=== PATIENT | male | born 1960 | race Caucasian/White ===

== ENCOUNTER 2020-11-30 10:31 | Outpatient (CLI) | payer OTHER, SELFPAY ==
[2020-11-30 11:11] LABS: Hematocrit 42.8 % (42.0-52.0); Hemoglobin 14.5 g/dL (14.0-18.0); Immature Platelet Fraction Pct 3.2 % (0.9-11.2); Mean Corpuscular HGB Conc 33.9 g/dl (32-36); Mean Corpuscular Hemoglobin 32.8 pg (26-34); Mean Corpuscular Volume 96.8 fl (80-100); Platelet Count Result 72 k/mm3 (150-375); Red Blood Count 4.42 M/mm3 (4.6-6.20); Red Cell Distribution Width 13.7 % (11.5-14.5); White Blood Count 6.9 K/mm3 (4.5-10.0)
[2020-11-30 11:27] LABS: Alanine Aminotransferase 43 U/L (4-50); Albumin Level 3.6 g/dL (3.5-5.1); Alkaline Phosphatase 135 U/L (38-126); Anion Gap 3 mmol/L (8-16); Aspartate Amino Transferase 64 U/L (17-59); Blood Urea Nitrogen 14 mg/dL (9-20); Carbon Dioxide 26 mmol/L (22-30); Chloride 106 mmol/L (98-107); Cholesterol 166 mg/dL (0-200); Estimated Glomerular Filt Rate > 60; Glucose 143 mg/dL (75-110); HDL Direct 46 mg/dL; Potassium 4.2 mmol/L (3.4-5.0); Sodium 135 mmol/L (137-145); Triglycerides 94 mg/dL (<150)
[2020-11-30 11:39] LABS: LDL Cholesterol Direct 78 mg/dL
== END 2020-11-30 10:32 | disposition home or self-care (01) ==
PROVIDERS: PCP Family Medicine; Visit Provider Family Medicine
DX: E11.9 Type 2 diabetes mellitus without complications (principal)
CPT/HCPCS: 36415; 80053; 80061; 84443; 85027; 85055

== ENCOUNTER 2023-01-25 12:12 | Observation (INO) | payer OTHER, SELFPAY ==
--- NOTE | ~2023-01-25 | XR_ITS ---
EXAMINATION: XR foot LT min 3V DATE: 01/25/2023 12:42 INDICATION: Diabetic patient stepped on a nail with injury at the plantar aspect of the great toe TECHNIQUE: Dorsoplantar, two oblique and lateral views of the left foot were obtained. COMPARISON: None. FINDINGS: Soft tissue swelling and linear tract of lucent gas in the soft tissues plantar to the first metatars ophalangeal joint consistent with a deep deep puncture injury reportedly secondary to stepping on a n ail. No radiopaque foreign bodies. Bone alignment is normal. No fracture. No cortical erosion, osteol ysis or periosteal reaction to suggest osteomyelitis. Mild polyarticular osteoarthritis at the left a nkle and multiple joints throughout the left foot. Moderate-sized plantar calcaneal spurs and additio nal enthesophytes at the dorsal aspect of the navicula and head of the talus. IMPRESSION: 1. Lucent tract of gas in the soft tissues plantar to the first metatarsophalangeal joint consistent with reported history of nail injury. No associated radiopaque foreign bodies or acute osseous abnorm ality. 2. Mild degenerative skeletal changes at the left foot and ankle. Reviewed, dictated and finalized at location A. IMPRESSION: 1. Lucent tract of gas in the soft tissues plantar to the first metatarsophalan geal joint consistent with reported history of nail injury. No associated radio paque foreign bodies or acute osseous abnormality. 2. Mild degenerative skeletal changes at the left foot and ankle.
--- NOTE | ~2023-01-25 | US_ITS ---
EXAMINATION: US venous doppler [facility] DATE: 01/25/2023 15:00 INDICATION: edema, erythema . TECHNIQUE: Grayscale images without and with compression and Doppler images of the left lower extremi ty veins were obtained. COMPARISON: None FINDINGS: The left common femoral vein, profunda femoral vein, femoral vein, popliteal vein, peroneal vein, pos terior tibial veins, gastrocnemius vein, and greater saphenous vein are patent. IMPRESSION: 1. Patent left lower extremity veins. No evidence of deep venous thrombosis. Reviewed, dictated and finalized at location K.
--- NOTE | ~2023-01-25 | CT_ITS ---
EXAMINATION: CT abdomen pelvis wo con DATE: 01/25/2023 16:09 INDICATION: Low back pain, flank pain, hematuria TECHNIQUE: Computed tomography (CT) of the abdomen and pelvis was performed without intravenous contr ast. Automated exposure control and iterative reconstruction technique were employed. Exam dose: 163 1.91 mGy-cm total exam DLP. COMPARISON: 12/08/2017 limited abdominal ultrasound examination FINDINGS: There is peripheral thickening of the intralobular septae and mild honeycombing, suggesting possible usual interstitial pneumonia interstitial fibrosis. No pulmonary consolidation is noted. He art size is within normal range. No pericardial or pleural effusion. Small sliding hiatal hernia. Very prominent surface nodularity of the relatively diminutive liver consistent with cirrhosis. There is splenomegaly. There are stones in the dependent aspect of the gallbladder. No gallbladder wall thickening or perich olecystic fluid or fat stranding. No bile duct or pancreatic duct dilatation. Normal morphology of the adrenal glands. No renal mass lesion or urinary tract calculus or hydroureteronephrosis. The urinary bladder is unrem arkable. There is prostatomegaly and prostate calcification. There is atherosclerotic calcification but normal caliber of the abdominal aorta and iliac arteries. Normal appendix. No bowel obstruction, bowel wall thickening, pneumatosis or intraperitoneal free air . Small fat-containing left inguinal hernia. Small fat-containing umbilical hernia. Degenerative changes of the lower thoracic and lumbar spine. No suspicious osteolytic or osteoblastic lesions are noted. IMPRESSION: Cirrhosis, splenomegaly Small sliding hiatal hernia Cholelithiasis No urinary tract calculus or hydroureteronephrosis Normal appendix Small fat-containing left inguinal hernia Small fat-containing umbilical hernia Reviewed, dictated and finalized at Location A. Reviewed, dictated and finalized at location B.
--- NOTE | ~2023-01-25 | NM_ITS ---
EXAMINATION: NM bone scan whole body DATE: 01/27/2023 14:05 INDICATION: Sclerotic lesion at the iliac side of the left sacroiliac joint. TECHNIQUE: 21 mCi Tc-99m HDP was administered intravenously. Delayed whole-body scintigrams were obt ained. COMPARISON: CT abdomen and pelvis dated 01/26/2023 and left foot radiographs dated 01/25/2023 FINDINGS: Likely degenerative joint centered uptake most prominent at the bilateral hands and mid feet and to l julieta degree at the bilateral sternoclavicular and acromioclavicular joints. Additional mild enthesop athic uptake at the left heel with corresponding left plantar calcaneal spur. Subtle small focus of l ikely enthesopathic uptake at the right patellar quadriceps insertion. No other suspicious bone lesio ns. Specifically no asymmetric uptake in the region of the sacroiliac joints to correspond to the lyt ic and sclerotic lesion on the prior CT most likely related to subarticular cystic change related to osteoarthritis. IMPRESSION: 1. Scattered likely degenerative joint centered uptake with typical distribution. No other lesions gannon spicious for osseous metastatic disease. Reviewed, dictated and finalized at location A. IMPRESSION: 1. Scattered likely degenerative joint centered uptake with typical distributio n. No other lesions suspicious for osseous metastatic disease.
--- NOTE | ~2023-01-25 | CT_ITS ---
EXAMINATION: CT abdomen pelvis w con DATE: 01/26/2023 15:45 INDICATION: Hematuria EXAMINATION: CT abdomen pelvis w con TECHNIQUE: Computed tomography (CT) of the abdomen and pelvis was performed without intravenous contr ast. CT of the abdomen and pelvis was then performed with a total of 130 mL Omnipaque-350 intravenous contrast using a double-bolus technique for simultaneous opacification of the renal parenchyma and r enal collecting system. Automated exposure control and iterative reconstruction technique were employ ed. Dose-length product was 1655.32 mGy-cm. COMPARISON: 01/25/2023 FINDINGS: Unchanged pattern of peripheral irregular septal line thickening at the bilateral lung bases most lik eduarda related to chronic interstitial lung disease of either usual interstitial pneumonia (UIP) or nons pecific interstitial pneumonia (NSIP) patterns. Heart size is normal. Aortic valve calcification. No pericardial or pleural effusion. Nodular cirrhotic liver with dilation of the main portal vein and sp lenomegaly measuring 27.2 cm maximal length consistent with portal venous hypertension. Calcified gal lstones at the dependent neck of the otherwise normal gallbladder with no wall thickening or perichol ecystic stranding to suggest acute cholecystitis. Pancreas and bilateral adrenal glands are normal. Symmetric bilateral renal parenchymal enhancement with no concerning solid renal mass lesions. Excret ed contrast is seen within the bilateral renal collecting systems, ureters and bladder. The proximal left ureter and the mid to distal right ureter. Decompressed likely due to peristalsis with no discer nible intraluminal contrast. No hydronephrosis or urothelial irregularities along the contrast opacif ied portions of the collecting systems and ureters. Prostatic calcifications. Bowels including the ap pendix are normal. No free intraperitoneal gas or fluid. Small fat-containing umbilical and left ingu inal hernias. Mild pelvic lymphadenopathy with several lymph nodes measuring up to 1.2 cm in maximal short axis diameter along the bilateral external and common iliac chains there are several additional smaller but asymmetrically enlarged lymph nodes in the right pelvic retroperitoneal fat situated bet ween the right psoas and iliacus muscles. Moderate thoracolumbar spondylosis. Indeterminate 2.5 x 1.6 cm mixed lytic and sclerotic lesion along the iliac side of the inferior right sacroiliac joint. IMPRESSION: 1. Normal kidneys with no strictures or urothelial irregularities identified along the contrast opaci fied portions of the normal bilateral ureters. 2. Nonspecific mild pelvic retroperitoneal lymphadenopathy which could be reactive, metastatic or due to lymphoma. 3. Indeterminate 2.5 x 1.6 cm mixed lytic and sclerotic lesion along the iliac side of the right sacr oiliac joint. Would consider further evaluation with either bone scan or PET/CT to also assess the pe lvic retroperitoneal lymphadenopathy. Given the distribution of the lymphadenopathy in the bone lesio n would also correlate with PSA level. 4. Cirrhosis with splenomegaly consistent with secondary portal venous hypertension. Reviewed, dictated and finalized at location A. IMPRESSION: 1. Normal kidneys with no strictures or urothelial irregularities identified al claudine the contrast opacified portions of the normal bilateral ureters. 2. Nonspecific mild pelvic retroperitoneal lymphadenopathy which could be react treva, metastatic or due to lymphoma. 3. Indeterminate 2.5 x 1.6 cm mixed lytic and sclerotic lesion along the iliac side of the right sacroiliac joint. Would consider further evaluation with ei er bone scan or PET/CT to also assess the pelvic retroperitoneal lymphadenopath y. Given the distribution of the lymphad
[2023-01-25 12:12] VITALS: BP 173/109; PULSE 77; RESP 18; TEMP 36.4; O2SAT 98
[2023-01-25 14:02] LABS: Basophils Percent Auto 0.5 % (0.2-1.2); Eosinophils Absolute Auto 0.2 K/mm3 (0-0.3); Eosinophils Percent Auto 2.2 % (0-4.4); Hematocrit 35.6 % (42.0-52.0); Hemoglobin 12.2 g/dL (14.0-18.0); Immature Granulocyte Absolute 0.03 K/mm3 (0.00-0.031); Immature Granulocyte Percent A 0.4 % (0-0.5); Immature Platelet Fraction Pct 5.7 % (0.9-11.2); Lymphocytes Absolute Auto 1.26 K/mm3 (0.9-3.2); Lymphocytes Percent Auto 15.3 % (18.3-44.2); Mean Corpuscular HGB Conc 34.3 g/dl (32-36); Mean Corpuscular Hemoglobin 33.3 pg (26-34); Mean Corpuscular Volume 97.3 fl (80-100); Mean Platelet Volume 11.5 fl (7.4-10.4); Monocytes Absolute Auto 1.1 K/mm3 (0.1-0.6); Monocytes Percent Auto 13.1 % (2.6-8.5); Neutrophils Absolute Auto 5.7 K/mm3 (1.3-6.7); Neutrophils Percent Auto 68.5 % (45.5-73.1); Platelet Count Result 58 k/mm3 (150-375); Red Blood Count 3.66 M/mm3 (4.6-6.20); Red Cell Distribution Width 13.5 % (11.5-14.5); White Blood Count 8.3 K/mm3 (4.5-10.0)
[2023-01-25 14:16] LABS: Anion Gap 3 mmol/L (8-16); Blood Urea Nitrogen 22 mg/dL (9-20); CRP 5.8 mg/dL (<1.0); Calcium 8.7 mg/dL (8.4-10.2); Carbon Dioxide 25 mmol/L (22-30); Chloride 106 mmol/L (98-107); Estimated CRCL calculation 88 ml/min; Estimated Glomerular Filt Rate > 60; Glucose 230 mg/dL (65-110); Potassium 4.3 mmol/L (3.4-5.0); Sodium 134 mmol/L (137-145)
[2023-01-25 14:30] LABS: Atypical Lymphocytes Present; Platelet Estimate Decreased (Adequate); Schistocytes None Seen (NORMAL)
[2023-01-25 14:33] LABS: Erythrocyte Sedimentation Rate 82 mm/hr (0-20)
--- NOTE | 2023-01-25 14:33 | ED.LOWEXIN ---
HPI - Extremity Injury (Lower) General Chief Complaint: Extremity Injury, Lower <Kitty Redd PA-C - Last Filed: 01/25/23 18:25> Stated Complaint: LOW BACK PAIN <Kitty Redd PA-C - Last Filed: 01/25/23 18:25> Time Seen by Provider: 01/25/23 13:20 <Kitty Redd PA-C - Last Filed: 01/25/23 18:25> Source: patient <TRAV Tilley Last Filed: 01/25/23 18:25> Mode of arrival: ambulatory <Kitty Redd PA-C - Last Filed: 01/25/23 18:25> Limitations: no limitations <Kitty Redd PA-C - Last Filed: 01/25/23 18:25> History of Present Illness HPI Narrative: This is a 62 year old male that presents to the ER for left leg swelling and redness ongoing since last night. Reports he stepped on a nail with the left foot 3 weeks ago. Reports he was seen after this and updated on his tetanus vaccine. Reports yesterday he noted redness and swelling to the left leg. Also reports over the last several days he has noted urinary frequency and hematuria. Does report some low back pain intermittently. Denies fever, abdominal pain, flank pain, or vomiting. <Kitty Redd PA-C - Last Filed: 01/25/23 18:25> Related Data Allergies/Adverse Reactions: Allergies Allergy/AdvReac Type Severity Reaction Status Date / Time oxycodone Allergy Unknown Nausea Verified 11/07/19 05:47 <Kitty Redd PA-C - Last Filed: 01/25/23 18:25> Review of Systems Review of Systems: CONSTITUTIONAL: Denies fever GASTROINTESTINAL: Denies abdominal pain, nausea, vomiting GENITOURINARY: Reports hematuria. Denies dysuria SKIN: Reports redness and swelling MUSCULOSKELETAL: Reports back pain, and myalgia. <TRAV Tilley Last Filed: 01/25/23 18:25> All systems reviewed & are unremarkable except as noted in HPI and below <TRAV Tilley Last Filed: 01/25/23 18:25> PMFSH Past Medical History Medical History: Medical History (Updated 01/25/23 @ 18:16 by Kitty Redd PA-C) History of diabetes mellitus <Kitty Redd PA-C - Last Filed: 01/25/23 18:25> Social History Social History: Social History (Updated 01/25/23 @ 14:40 by Kitty Redd PA-C) Smoking status: Former smoker <Kitty Redd PA-C - Last Filed: 01/25/23 18:25> Exam Narrative: GENERAL: Well-appearing, well-nourished, and in no acute distress. HEAD: Normocephalic, atraumatic. EYES: EOMI. CHEST: Clear to auscultation. No respiratory distress. No wheezes rales or rhonchi HEART: Regular rate and rhythm. No murmur heard. Normal peripheral pulses. ABDOMEN: Soft, nontender, nondistended, normal active bowel sounds. No CVA tenderness EXTREMITIES: Normal range of motion. Redness and swelling noted to the left lower leg. No crepitus. Normal DP pulse. Normal sensation. Left foot plantar surface with 3cm ci SKIN: Warm, dry, no rash. NEURO: No focal deficits. Alert and oriented x3. PSYCH: Normal mood and affect <Kitty Redd PA-C - Last Filed: 01/25/23 18:25> Course Course Emergency Course: Patient was updated on workup and need for admission <Kitty Redd PA-C - Last Filed: 01/25/23 18:25> CENTRAL STERILIZATION TECHNICIAN/PA Physician Supervision This visit was performed by both a physician and an APC. I performed all aspects of the MDM as documented. Admit to hospitalist service for diabetic cellulitis. <Rodrigo Sanchez MD - Last Filed: 01/25/23 19:18> Consultations Consultation #1: Spoke with hospitalist about patient and workup who accepts admission <Kitty Redd PA-C - Last Filed: 01/25/23 18:25> Date: 01/25/23 <Kitty Redd PA-C - Last Filed: 01/25/23 18:25> Vital Signs Vital signs: Vital Signs Temperature 97.6 F 01/25/23 12:12 Pulse Rate 77 01/25/23 12:12 Respiratory Rate 18 01/25/23 12:12 Blood Pressure 173/109 H 01/25/23 12:12 Pulse Oximetry 98 01/25/23 12:12 Oxygen Delivery Room Air 01/25/23 12:12 Temperature 97.6 F 01/25/23 12:12 Puls
[2023-01-25 15:52] LABS: Appearance Urine Clear (Clear); Bilirubin Urine Negative (Negative); Blood Urine 3+ (Negative); Color Urine Yellow (Yellow); Glucose Urine UA Trace mg/dL (Negative); Ketones Urine Negative (Negative); Leukocyte Esterase Ur Negative LEU/UL (Negative); Nitrate Urine Negative (Negative); Protein Urine 2+ mg/dL (Negative); Specific Grav Ur 1.015 (1.001-1.035); Urobilinogen Urine 0.2 mg/dL (<2.0)
[2023-01-25 15:56] LABS: Add Urine Microscopic? YES
[2023-01-25 15:57] LABS: RBC Urine >100 /hpf (0-2); WBC Urine 0-3 /hpf (0-3)
[2023-01-25 15:58] LABS: Squamous Epithelial Cell Urine Few /hpf (Few)
[2023-01-25 16:00] LABS: Bacteria Urine Rare /hpf
[2023-01-25] MEDS: CEFEPIME 2 GM/NS 50 ML 2 GM/50 ML BAG IVPB (17:50)
[2023-01-25] MEDS: metroNIDAZOLE 500 MG/ISO 100ML 500 MG/100 ML BAG 100 MG IVPB (18:09)
[2023-01-25 18:15] LABS: Glucose Point of Care 196 mg/dl (65-105)
[2023-01-25] MEDS: INSULIN HUMAN REGULAR (*BKC) 100 UNITS/ML 15 UNITS SUB-Q (18:35)
[2023-01-25 18:38] VITALS: BP 154/70
[2023-01-25 19:55] VITALS: BP 121/61; PULSE 81; RESP 16; O2SAT 98
--- NOTE | 2023-01-25 20:14 | PC.NURSE ---
Patient arrived on 3 Med-Surg at 20:05 on 01/25/2023
[2023-01-25 20:40] VITALS: BMI 45.1
--- NOTE | 2023-01-25 21:18 | PM.IMHP ---
H&P: HPI History of Present Illness Date/Time: 01/25/23 21:18 Chief Complaint: Lower extremity infection Narrative: This is a 62-year-old diabetic male patient who came to the emergency room with complaints of left leg swelling and redness it just started last night. The patient stated that he stepped on a nail with his left foot 3 weeks ago. The patient stated that he did receive a tetanus shot 2 days after he stepped on the nail. Patient still has a callused area to the left palmar surface and no redness on the foot however the redness is on the left lower leg just below the knee. The patient has also been having urinary frequency and hematuria. He has no complaints of abdominal pain or flank plain. No fever chills. White count is normal. H&H is 12.2 and 35.6. Platelet count is 58 which is normal for the patient. Sodium slightly low at 134. Blood sugars 230, 196 and 280. CRP 5.8. Urine has 2+ protein trace glucose 3+ blood. Urine rbc's greater than 100. At abdominal pelvis CT was read as a following?Cirrhosis, splenomegaly Small sliding hiatal hernia Cholelithiasis No urinary tract calculus or hydroureteronephrosis Normal appendix Small fat-containing left inguinal hernia Small fat-containing umbilical hernia Venous Doppler of left leg pain left lower extremity veins no evidence of deep vein thrombosis. Foot x-ray was read as the following. Lucent tract of gas in the soft tissues plantar to the first metatarsophalangeal joint consistent with reported history of nail injury. No associated radiopaque foreign bodies or acute osseous abnormality. 2. Mild degenerative skeletal changes at the left foot and ankle. The patient was given vancomycin and cefepime Flagyl and insulin in the emergency room. The patient is being admitted to observation status on the date of service of 01/25/2023. Review of Systems Review of Systems: All systems reviewed & are unremarkable except as noted in HPI and below Constitutional: Constitutional: Reports as per HPI and Reports no additional constitutional complaints Eyes: Eyes: Reports as per HPI and Reports no additional eye complaints ENT: Reports system reviewed and no additional complaints, except as documented and Reports Normal hearing present Cardiovascular: Cardiovascular: Reports no additional cardiovascular complaints Respiratory: Respiratory: Reports no additional respiratory complaints and Reports no additional respiratory complaints Gastrointestinal: Gastrointestinal: Reports as per HPI and Reports no additional gastrointestinal complaints Musculoskeletal: Musculoskeletal: Reports no additional musculoskeletal complaints Integumentary/Breasts: Skin/Breast: Reports system reviewed and no additional complaints, except as docu and Reports as per HPI Neurologic: Reports system reviewed and no additional complaints, except as documented, Reports as per HPI and Reports Normal hearing present Psychiatric: Psychiatric: Reports no additional psychiatric complaints and Reports as per HPI Endocrine: Endocrine: Reports no additional endocrine complaints Hematologic/Lymphatic: Hematologic/Lymphatic: Reports no additional hematologic/lymphatic complaints Allergic/Immunologic: Allergic/Immunologic: Reports no additional allergic/immunologic complaints [facility] Past Medical History Medical History (Updated 01/26/23 @ 01:07 by Basilia Benites NP) DM2 (diabetes mellitus, type 2) History of diabetes mellitus Surgical History Surgical History (Updated 01/26/23 @ 00:58 by Basilia Benites NP) H/O cataract extraction S/P ORIF (open reduction internal fixation) fracture Left ankle with jesus manuel placement with subsequent removal later Family History Family History (Updated 01/26/23 @ 00:58 by Basilia Benites NP) Mother Cancer Social History Social History (Updated 01/26/23 @ 00:59 by Basilia Benites NP) Social History: 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 He has 3 children and is
[2023-01-25 21:23] LABS: Glucose Point of Care 280 mg/dl (65-105)
[2023-01-25] MEDS: INSULIN ASPART (*BKC) 100 UNITS/ML 10 UNITS SUB-Q (21:52)
[2023-01-25 22:00] VITALS: BP 134/63; PULSE 72; RESP 14; TEMP 36.4; O2SAT 98
[2023-01-26] MEDS: metroNIDAZOLE 500 MG/ISO 100ML 500 MG/100 ML BAG 100 MG IVPB ×3 (03:29→17:54)
[2023-01-26] MEDS: INSULIN GLARGINE (*BKC) 100 UNITS/ML 28 UNITS SUB-Q ×2 (03:29→20:07)
[2023-01-26] MEDS: CEFEPIME 2 GM/NS 50 ML 2 GM/50 ML BAG IVPB ×2 (05:25→17:22)
[2023-01-26 06:00] VITALS: BP 118/60; PULSE 76; RESP 16; TEMP 36.3; O2SAT 97
[2023-01-26 06:42] LABS: Basophils Percent Auto 0.6 % (0.2-1.2); Eosinophils Absolute Auto 0.3 K/mm3 (0-0.3); Hematocrit 30.6 % (42.0-52.0); Hemoglobin 10.6 g/dL (14.0-18.0); Immature Granulocyte Absolute 0.04 K/mm3 (0.00-0.031); Immature Granulocyte Percent A 0.6 % (0-0.5); Immature Platelet Fraction Pct 4.8 % (0.9-11.2); Lymphocytes Absolute Auto 1.33 K/mm3 (0.9-3.2); Lymphocytes Percent Auto 19.6 % (18.3-44.2); Mean Corpuscular HGB Conc 34.6 g/dl (32-36); Mean Corpuscular Hemoglobin 32.8 pg (26-34); Mean Corpuscular Volume 94.7 fl (80-100); Monocytes Absolute Auto 0.9 K/mm3 (0.1-0.6); Monocytes Percent Auto 13.6 % (2.6-8.5); Neutrophils Absolute Auto 4.2 K/mm3 (1.3-6.7); Neutrophils Percent Auto 61.6 % (45.5-73.1); Platelet Count Result 54 k/mm3 (150-375); Red Blood Count 3.23 M/mm3 (4.6-6.20); Red Cell Distribution Width 13.3 % (11.5-14.5); White Blood Count 6.8 K/mm3 (4.5-10.0)
[2023-01-26 06:57] LABS: Alanine Aminotransferase 23 U/L (6-50); Albumin Level 3.2 g/dL (3.5-5.1); Alkaline Phosphatase 87 U/L (38-126); Anion Gap 0 mmol/L (8-16); Aspartate Amino Transferase 35 U/L (17-59); Bilirubin,Total 1.7 mg/dL (0.2-1.3); Blood Urea Nitrogen 20 mg/dL (9-20); Calcium 8.6 mg/dL (8.4-10.2); Carbon Dioxide 28 mmol/L (22-30); Chloride 107 mmol/L (98-107); Estimated CRCL calculation 90 ml/min; Estimated Glomerular Filt Rate > 60; Glucose 156 mg/dL (65-110); Potassium 4.1 mmol/L (3.4-5.0); Sodium 135 mmol/L (137-145)
[2023-01-26 07:33] LABS: Glucose Point of Care 148 mg/dl (65-105)
[2023-01-26] MEDS: SILVERGEL (ELTA) 45 ML 1 APPLIC TOPICAL (09:01)
[2023-01-26 10:52] LABS: Hemoglobin A1C 8.5 % (<5.7)
[2023-01-26 11:47] LABS: Glucose Point of Care 308 mg/dl (65-105)
[2023-01-26] MEDS: INSULIN ASPART (*BKC) 100 UNITS/ML SUB-Q ×2 (12:29→17:27)
--- NOTE | 2023-01-26 13:18 | WPDURCON ---
Assessment and Plan Assessment and plan (1) Hematuria: Qualifiers: Hematuria type: gross Qualified Code(s): R31.0 - Gross hematuria Code(s): R31.9 - Hematuria, unspecified Status: Acute Assessment and Plan: Repeat CT abdomen and pelvis with contrast to rule out malignancy. Proceed with office cystoscopy after discharge. No need for surgical intervention at this time. Cause is unclear at this time, we did discuss BPH as a possible cause and UTI, although no culture was sent and we are unable to send one at this time d/t being on antibiotics. (2) BPH (benign prostatic hyperplasia): Code(s): N40.0 - Benign prostatic hyperplasia without lower urinary tract symptoms Status: Acute Assessment and Plan: Start Flomax. (3) Prostate cancer screening: Code(s): Z12.5 - Encounter for screening for malignant neoplasm of prostate Status: Acute Assessment and Plan: Obtain PSA for screening d/t no previous PSA and new onset of hematuria that is unexplained. Urology Consult Note HPI Date Seen: 01/26/23 Time Seen: 12:00 Requesting Physician: Saumya Harris MD Primary Care Provider: Flo Russell, Consult Narrative Reason for consult: Gross Hematuria/BPH symptoms Narrative: Blake Smith is a 62 year old male who is being treated for an infection in the LLE secondary to stepping on a nail 3 weeks ago. He was treated initially with a Tetanus shot, but has since developed acute onset LLE edema, redness and pain. He is being treated with Vancomycin and Cefepime. Simultaneously, he notes that he has developed acute onset of gross hematuria x2 days, which is accompanied with a history of frequency, urgency, incontinence and nocturia x 5 at night. He denies straining, hesitancy or feeling of incomplete emptying. He has never seen a urologist before. He had a CT to rule out stones which was done without contrast only and was normal. WBC is 6.8, creatinine 1.20, UA shows hematuria but is not otherwise suspicious of infection, no urine culture was sent. He was seen in the ER yesterday and admitted for further treatment. A DVT was ruled out in his leg and he is not on anticoagulants currently. He has never taken any medications for OAB or BPH, nor does he have a family history of prostate cancer. He has never had a PSA/ORTIZ. Review of Systems Cardiovascular: Cardiovascular: Denies chest pain Respiratory: Respiratory: Reports no additional respiratory complaints Gastrointestinal: Gastrointestinal: Denies abdominal pain, Denies nausea and Denies vomiting Genitourinary: Genitourinary: Reports hematuria, Denies dysuria, Denies flank pain, Reports urinary frequency, Denies urinary hesitancy, Reports urinary incontinence and Reports urinary urgency Musculoskeletal: Comments: LLE pain PMFSH Past Medical History Medical History DM2 (diabetes mellitus, type 2) History of diabetes mellitus Surgical History Surgical History H/O cataract extraction S/P ORIF (open reduction internal fixation) fracture Left ankle with jesus manuel placement with subsequent removal later Family History Family History Mother Cancer Social History Social History Social History: 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 He has 3 children and is and lives with his . Code status full code Smoking status: Never smoker Alcohol intake: former Drinks per week: 2 Substance use: never Lack of Transportation: No Lack of Food: Never True Current Housing: I Have Housing Concerned About Future Housing: No Difficulty Paying Gas/Electric Bills: YES Difficulty Paying for Meds: No Currently Unemployed: No Education: High School Diploma/GED Difficu
--- NOTE | 2023-01-26 13:35 | PM.IMPN ---
Progress Note: A&P Assessment and Plan (1) Cellulitis: Qualifiers: Laterality: left Site of cellulitis: extremity Site of cellulitis of extremity: lower extremity Qualified Code(s): L03.116 - Cellulitis of left lower limb Code(s): L03.90 - Cellulitis, unspecified Status: Acute Assessment and Plan: Continue with cefepime, Flagyl, and vancomycin as per antibiotic stewardship for cellulitis in a diabetic patient Continue with analgesia Blood cultures pending Tailor antibiotics to culture and sensitivities. 01/26/2023 interval history: 62-year-old male morbidly obese with history of uncontrolled diabetes presents with left lower extremity cellulitis, patient stepped on a jean-paul nails and developed the infection patient is being treated with Cefepime and vanconycin, will follow up on blood culture, patient also having hematuria will consult urologist further recommendation, continue to monitor (2) DM2 (diabetes mellitus, type 2): Code(s): E11.9 - Type 2 diabetes mellitus without complications Status: Acute Assessment and Plan: Continue with long-acting insulin Accu-Cheks AC and HS with sliding scale insulin and hypoglycemic protocol Check A1c (3) Hematuria: Qualifiers: Hematuria type: gross Qualified Code(s): R31.0 - Gross hematuria Code(s): R31.9 - Hematuria, unspecified Status: Acute Assessment and Plan: CT of the abdomen did not offer up any kidney stones. May consider outpatient urology consult (4) Thrombocytopenia: Code(s): D69.6 - Thrombocytopenia, unspecified Status: Acute Assessment and Plan: No anticoagulation was given at this time as patient has thrombocytopenia which appears to be chronic. The patient's platelets are 58 previously there was 72. This was noted to be low since 2019. According to the CT scan the patient has cirrhosis of the liver. Subjective Date/time seen: 01/26/23 13:35 Lower extremity infection HPI-Narrative: This is a 62-year-old diabetic male patient who came to the emergency room with complaints of left leg swelling and redness it just started last night.? The patient stated that he stepped on a nail with his left foot 3 weeks ago.? The patient stated that he did receive a tetanus shot 2 days after he stepped on the nail.? Patient still has a callused area to the left palmar surface and no redness on the foot however the redness is on the left lower leg just below the knee.? The patient has also been having urinary frequency and hematuria.? He has no complaints of abdominal pain or flank plain.? No fever chills.? White count is normal.? H&H is 12.2 and 35.6.? Platelet count is 58 which is normal for the patient.? Sodium slightly low at 134.? Blood sugars 230, 196 and 280.? CRP 5.8.? Urine has 2+ protein trace glucose 3+ blood.? Urine rbc's greater than 100.? At abdominal pelvis CT was read as a following?Cirrhosis, splenomegaly 01/26/2023 interval history: 62-year-old male morbidly obese with history of uncontrolled diabetes presents with left lower extremity cellulitis, patient stepped on a jean-paul nails and developed the infection patient is being treated with Cefepime and vanconycin, will follow up on blood culture, patient also having hematuria will consult urologist further recommendation, continue to monitor Review of Systems Review of Systems: All systems reviewed & are unremarkable except as noted in HPI and below Exam Narrative: Morbidly obese Patient is comfortable, NAD HEENT: eyes are clear and none icteric LUNGS: Normal respiratory effort ABD: BS+, Soft and nontender Lower extremities: no edema SKIN: nonjaundiced, left lower extremity posterior expect erythematosus no induration or discharge, Neuro: grossly intact. Objective Data Vital Signs Vital Signs: Vital Signs - 24 hr 01/25/23 18:38 01/25/23 19:55 01/25/23 22:00 Temperature 97.5 F L Pulse Rate 81 72 Respiratory Rate
[2023-01-26 14:00] VITALS: BP 130/67; PULSE 75; RESP 18; TEMP 36.6; O2SAT 98
[2023-01-26 14:08] LABS: Prostate Specific Antigen 0.2 ng/mL (< OR = 4.0)
[2023-01-26 16:46] LABS: Glucose Point of Care 261 mg/dl (65-105)
[2023-01-26 21:26] LABS: Glucose Point of Care 158 mg/dl (65-105)
[2023-01-26 22:00] VITALS: BP 136/58; PULSE 76; RESP 18; TEMP 36.4; O2SAT 96
[2023-01-27] MEDS: metroNIDAZOLE 500 MG/ISO 100ML 500 MG/100 ML BAG 100 MG IVPB ×3 (01:00→17:56)
[2023-01-27] MEDS: CEFEPIME 2 GM/NS 50 ML 2 GM/50 ML BAG IVPB ×2 (05:16→17:23)
[2023-01-27 06:00] VITALS: BP 131/57; PULSE 71; RESP 18; TEMP 36.4; O2SAT 95
[2023-01-27 07:24] LABS: Estimated CRCL calculation 90 ml/min; Estimated Glomerular Filt Rate > 60
[2023-01-27 07:45] LABS: Vancomycin Trough 18.7 ug/mL (10.0-20.0)
[2023-01-27 08:26] LABS: Glucose Point of Care 115 mg/dl (65-105)
[2023-01-27] MEDS: SILVERGEL (ELTA) 45 ML 1 APPLIC TOPICAL (08:30)
[2023-01-27] MEDS: INSULIN ASPART (*BKC) 100 UNITS/ML SUB-Q ×3 (11:59→22:11)
[2023-01-27 12:09] LABS: Glucose Point of Care 265 mg/dl (65-105)
--- NOTE | 2023-01-27 12:29 | PM.IMPN ---
Progress Note: A&P Assessment and Plan (1) Cellulitis: Qualifiers: Laterality: left Site of cellulitis: extremity Site of cellulitis of extremity: lower extremity Qualified Code(s): L03.116 - Cellulitis of left lower limb Code(s): L03.90 - Cellulitis, unspecified Status: Acute Assessment and Plan: Continue with cefepime, Flagyl, and vancomycin as per antibiotic stewardship for cellulitis in a diabetic patient Continue with analgesia Blood cultures pending Tailor antibiotics to culture and sensitivities. 01/26/2023 interval history: 62-year-old male morbidly obese with history of uncontrolled diabetes presents with left lower extremity cellulitis, patient stepped on a jean-paul nails and developed the infection patient is being treated with Cefepime and vanconycin, will follow up on blood culture, patient also having hematuria will consult urologist further recommendation, continue to monitor (2) DM2 (diabetes mellitus, type 2): Code(s): E11.9 - Type 2 diabetes mellitus without complications Status: Acute Assessment and Plan: Continue with long-acting insulin Accu-Cheks AC and HS with sliding scale insulin and hypoglycemic protocol Check A1c (3) Hematuria: Qualifiers: Hematuria type: gross Qualified Code(s): R31.0 - Gross hematuria Code(s): R31.9 - Hematuria, unspecified Status: Acute Assessment and Plan: CT of the abdomen did not offer up any kidney stones. May consider outpatient urology consult (4) Thrombocytopenia: Code(s): D69.6 - Thrombocytopenia, unspecified Status: Acute Assessment and Plan: No anticoagulation was given at this time as patient has thrombocytopenia which appears to be chronic. The patient's platelets are 58 previously there was 72. This was noted to be low since 2019. According to the CT scan the patient has cirrhosis of the liver. Subjective Date/time seen: 01/27/23 12:29 No complaints Exam Narrative: Morbidly obese Patient is comfortable, NAD HEENT: eyes are clear and none icteric LUNGS: Normal respiratory effort ABD: BS+, Soft and nontender Lower extremities: no edema SKIN: nonjaundiced, left lower extremity posterior expect erythematosus no induration or discharge, Neuro: grossly intact. Objective Data Vital Signs Vital Signs: Vital Signs - 24 hr 01/26/23 14:00 01/26/23 22:00 01/26/23 20:00 Temperature 97.9 F 97.6 F Pulse Rate 75 76 Respiratory Rate 18 18 Blood Pressure 130/67 136/58 L Pulse Oximetry 98 96 Oxygen Delivery Room Air 01/27/23 06:00 01/27/23 08:30 Temperature 97.6 F Pulse Rate 71 Respiratory Rate 18 Blood Pressure 131/57 L Pulse Oximetry 95 Oxygen Delivery Room Air Intake/Output Intake/Output: Intake & Output 01/24/23 01/25/23 01/26/23 01/27/23 23:59 23:59 23:59 23:59 Intake Total 450 1620 1120 Balance 450 1620 1120 Meds/Results Medications: Active Medications Generic Name Dose Route Start Last Admin Trade Name Freq PRN Reason Stop Dose Admin Dextrose 12.5 gm 01/26/23 11:47 Dextrose 50% 25 Gm/50 Ml Syringe IV PUSH PRN PRN Hypoglycemia Protocol Glucagon 1 mg 01/26/23 11:47 Glucagon For Inj 1 Mg Vial IM PRN PRN Hypoglycemia Protocol Glucose 15 gm 01/26/23 11:47 Glucose Oral Gel 15 Gm Of Glucse In 37.5 Gm Tube PO PRN PRN Hypoglycemia Protocol Cefepime HCl 2 gm in 50 mls @ 100 mls/hr 01/26/23 06:00 01/27/23 05:16 Maxipime 2 Gm/Ns 50 Ml IVPB 125 mls/hr Q12H VIKA Administration Metronidazole 500 mg in 100 mls @ 100 mls/hr 01/26/23 02:00 01/27/23 10:03 Flagyl 500 Mg/Iso Soln 100 Ml IVPB 100 mls/hr Q8H VIKA Administration Dextrose 1,000 mls @ 100 mls/hr 01/26/23 11:47 Dextrose 5% 1,000 Ml IVPB PRN PRN Hypoglycemia Protocol Vancomycin HCl 1,500 mg in 500 mls @ 250 mls/hr 01/27/23 09:00 01/27/23 11:17 Vancomycin
--- NOTE | 2023-01-27 12:54 | WPDUROPN2 ---
Progress Note: A&P Assessment and Plan (1) Hematuria: Qualifiers: Hematuria type: gross Qualified Code(s): R31.0 - Gross hematuria Code(s): R31.9 - Hematuria, unspecified Status: Acute Assessment and Plan: Resolved. Will plan on outpatient cystoscopy. Etiology of sclerotic bone lesion and adenopathy is unclear but should be worked up by primary care. Bone scan is pending at this time. Patient's PSA was normal Subjective Subjective Date/Time Seen: 01/27/23 12:54 Principal diagnosis: Hematuria Interval history: Hematuria has resolved. He is voiding without any complaints. CT scan revealed a sclerotic lesion on his right ilium which is being evaluate the bone scan at this time. There is also some pelvic retroperitoneal adenopathy. This PSA was normal. Further evaluation will be performed by hospitalist and primary care Review of Systems Review of Systems: All systems reviewed & are unremarkable except as noted in HPI and below Exam Const: General: cooperative and comfortable Objective Data Vital Signs Vital Signs: Vital Signs - 24 hr 01/26/23 14:00 01/26/23 22:00 01/26/23 20:00 Temperature 36.6 C 36.4 C Pulse Rate 75 76 Respiratory Rate 18 18 Blood Pressure 130/67 136/58 L Pulse Oximetry 98 96 Oxygen Delivery Room Air 01/27/23 06:00 01/27/23 08:30 Temperature 36.4 C Pulse Rate 71 Respiratory Rate 18 Blood Pressure 131/57 L Pulse Oximetry 95 Oxygen Delivery Room Air Intake/Output Intake/Output: Intake & Output 01/24/23 01/25/23 01/26/23 01/27/23 23:59 23:59 23:59 23:59 Intake Total 450 1620 1120 Balance 450 1620 1120 Meds/Results Medications: Active Medications Generic Name Dose Route Start Last Admin Trade Name Freq PRN Reason Stop Dose Admin Dextrose 12.5 gm 01/26/23 11:47 Dextrose 50% 25 Gm/50 Ml Syringe IV PUSH PRN PRN Hypoglycemia Protocol Glucagon 1 mg 01/26/23 11:47 Glucagon For Inj 1 Mg Vial IM PRN PRN Hypoglycemia Protocol Glucose 15 gm 01/26/23 11:47 Glucose Oral Gel 15 Gm Of Glucse In 37.5 Gm Tube PO PRN PRN Hypoglycemia Protocol Cefepime HCl 2 gm in 50 mls @ 100 mls/hr 01/26/23 06:00 01/27/23 05:16 Maxipime 2 Gm/Ns 50 Ml IVPB 125 mls/hr Q12H VIKA Administration Metronidazole 500 mg in 100 mls @ 100 mls/hr 01/26/23 02:00 01/27/23 10:03 Flagyl 500 Mg/Iso Soln 100 Ml IVPB 100 mls/hr Q8H VIKA Administration Dextrose 1,000 mls @ 100 mls/hr 01/26/23 11:47 Dextrose 5% 1,000 Ml IVPB PRN PRN Hypoglycemia Protocol Vancomycin HCl 1,500 mg in 500 mls @ 250 mls/hr 01/27/23 09:00 01/27/23 11:17 Vancomycin 1,500 Mg/D5w 500 Ml IVPB 250 mls/hr Q18H VIKA Administration Insulin Aspart 3 - 6 units 01/26/23 12:00 01/27/23 11:59 Insulin Aspart (*Bkc) 100 Units/Ml SUB-Q 4 units TIDWM VIKA Administration Protocol Insulin Glargine 28 units 01/26/23 01:00 01/26/23 20:07 Insulin Glargine (*Bkc) 100 Units/Ml SUB-Q 28 units HS VIKA Administration Silver Nitrate 1 applic 01/26/23 09:00 01/27/23 08:30 Silvergel (Elta) 45 Ml TOPICAL 1 applic DAILY VIKA Administration Tramadol HCl 25 mg 01/26/23 01:05 Tramadol Hcl (*Crx) 25 Mg Tablet PO Q4H PRN Pain Rated 4-6 Radiology Results: ITS Impressions Foot X-Ray 01/25/23 12:51 IMPRESSION: 1. Lucent tract of gas in the soft tissues plantar to the first metatarsophalangeal joint consistent with reported history of nail injury. No associated radiopaque foreign bodies or acute osseous abnormality. 2. Mild degenerative skeletal changes at the left foot and ankle. Venous Doppler Study 01/25/23 15:08 IMPRESSION: 1. Patent left lower extremity veins. No evidence of deep venous thrombosis. Abdomen/Pelvis CT 01/26/23 16:13 IMPRESSION: 1. Normal kidneys with no strictures or urothelial irregularities identified along the
--- NOTE | 2023-01-27 13:15 | PDONCCN ---
HPI - Date of Consult Date/Time: 01/27/23 13:15 Requesting Physician: Saumya Harris MD Primary Care Provider: Flo Russell, - Consult Narrative Reason for consult: Gross Hematuria/BPH symptoms Narrative: Blake Smith is a 62 year old male 62 yo male with thrombocytopenia no history or recent blood work. CT shows hepatosplenomegaly and pt has a significant history of alcohol consumption Review of Systems - Neurologic Reports system reviewed and no additional complaints, except as documented, Reports hearing normal [facility] Medical History: Medical History (Last Reviewed 01/26/23 @ 13:44 by Kareen Beach APRN) DM2 (diabetes mellitus, type 2) History of diabetes mellitus Surgical History: Surgical History (Last Reviewed 01/26/23 @ 13:44 by Kareen Beach APRN) H/O cataract extraction S/P ORIF (open reduction internal fixation) fracture Left ankle with jesus manuel placement with subsequent removal later Family History: Family History (Last Reviewed 01/26/23 @ 13:44 by Kareen Beach APRN) Mother Cancer - Social History Social History: Social History (Last Reviewed 01/26/23 @ 13:44 by Kareen Beach APRN) Alcohol Use: Alcohol intake: former Drinks per week: 2 Substance Use: Substance use: never Others: Spiritual care concerns: No Smoking Status: Smoking status: Never smoker Social Determinants of Health: Has the Lack of Transportation Kept You From Medical Appointments or From Getting Medications?: No Within the Past 12 Months, Were You Worried Whether Your Food Would Run Out Before You Got Money to Buy More?: Never True What is Your Housing Situation Today?: I Have Housing Are You Worried That in the Next 2 Months, You May Not Have Your Own Housing to Live In?: No Do You Have Trouble Paying Your Heating Or Electricity Bill?: Yes Do You Have Trouble Paying For Medicines?: No Are You Currently Unemployed and Looking for Work?: No Highest Level of Education Completed: High School Diploma/GED Do You Have Trouble With Childcare or the Care of a Family Member?: No Exam - General skye obesity - Vital Signs Vital Signs - 24 hr 01/26/23 14:00 01/26/23 22:00 01/26/23 20:00 Temperature 36.6 C 36.4 C Pulse Rate 75 76 Respiratory Rate 18 18 Blood Pressure 130/67 136/58 L Pulse Oximetry 98 96 Oxygen Delivery Room Air 01/27/23 06:00 01/27/23 08:30 Temperature 36.4 C Pulse Rate 71 Respiratory Rate 18 Blood Pressure 131/57 L Pulse Oximetry 95 Oxygen Delivery Room Air - Lab Results Laboratory Last Values WBC 6.8 K/mm3 (4.5-10.0) 01/26/23 06:17 RBC 3.23 M/mm3 (4.6-6.20) L 01/26/23 06:17 Hgb 10.6 g/dL (14.0-18.0) L 01/26/23 06:17 Hct 30.6 % (42.0-52.0) L 01/26/23 06:17 MCV 94.7 fl (80-100) 01/26/23 06:17 MCH 32.8 pg (26-34) 01/26/23 06:17 MCHC 34.6 g/dl (32-36) 01/26/23 06:17 RDW 13.3 % (11.5-14.5) 01/26/23 06:17 Plt Count 54 k/mm3 (150-375) L 01/26/23 06:17 MPV 11.0 fl (7.4-10.4) H 01/26/23 06:17 Immature Gran % (Auto) 0.6 % (0-0.5) H 01/26/23 06:17 Neut % (Auto) 61.6 % (45.5-73.1) 01/26/23 06:17 Lymph % (Auto) 19.6 % (18.3-44.2) 01/26/23 06:17 [place] % (Auto) 13.6 % (2.6-8.5) H 01/26/23 06:17 Eos % (Auto) 4.0 % (0-4.4) 01/26/23 06:17 Baso % (Auto) 0.6 % (0.2-1.2) 01/26/23 06:17 Lymph # (Auto) 1.33 K/mm3 (0.9-3.2) 01/26/23 06:17 [place] # (Auto) 0.9 K/mm3 (0.1-0.6) H 01/26/23 06:17 Eos # (Auto) 0.3 K/mm3 (0-0.3) 01/26/23 06:17 Baso # (Auto) 0.0 K/mm3 (0.0-0.1) 01/26/23 06:17 Abs Immat Gran (auto) 0.04 K/mm3 (0.00-0.031) H 01/26/23 06:17 Absolute Neuts (auto) 4.2 K/mm3 (1.3-6.7) 01/26/23 06:17 Absolute Nucleated RBC 0.0 K/mm3 (0.0-0.012) 01/26/23 06:17 Nucleated RBC % 0.0 % (0.0-0.2) 01/26/23 06:
[2023-01-27 14:00] VITALS: BP 112/74; PULSE 103; RESP 16; TEMP 36.8; O2SAT 100
[2023-01-27 17:01] LABS: Glucose Point of Care 244 mg/dl (65-105)
[2023-01-27 20:12] LABS: Glucose Point of Care 309 mg/dl (65-105)
[2023-01-27] MEDS: INSULIN GLARGINE (*BKC) 100 UNITS/ML 28 UNITS SUB-Q (20:41)
[2023-01-27 22:00] VITALS: BP 133/57; PULSE 78; RESP 18; TEMP 36.8; O2SAT 99
[2023-01-28] MEDS: metroNIDAZOLE 500 MG/ISO 100ML 500 MG/100 ML BAG 100 MG IVPB ×2 (01:03→09:25)
[2023-01-28] MEDS: CEFEPIME 2 GM/NS 50 ML 2 GM/50 ML BAG IVPB (05:42)
[2023-01-28 05:52] VITALS: BP 130/42; PULSE 73; RESP 16; TEMP 36.6; O2SAT 95
[2023-01-28 06:40] LABS: Estimated CRCL calculation 90 ml/min; Estimated Glomerular Filt Rate > 60; Lactic Acid Reflex 0.8 mmol/L (0.7-2.0)
[2023-01-28] MEDS: SILVERGEL (ELTA) 45 ML 1 APPLIC TOPICAL (08:19)
[2023-01-28 08:51] LABS: Glucose Point of Care 169 mg/dl (65-105)
--- NOTE | 2023-01-28 10:58 | PM.DS ---
DS: Admitting Diagnosis Discharge Date January 29, 2020 Admitting Diagnosis Hematuria DS: Discharge Diagnosis Discharge Diagnosis (1) Cellulitis: Qualifiers: Laterality: left Site of cellulitis: extremity Site of cellulitis of extremity: lower extremity Qualified Code(s): L03.116 - Cellulitis of left lower limb Code(s): L03.90 - Cellulitis, unspecified Status: Acute Assessment and Plan: Antibiotics on discharge (2) DM2 (diabetes mellitus, type 2): Code(s): E11.9 - Type 2 diabetes mellitus without complications Status: Acute Assessment and Plan: Continue with long-acting insulin Accu-Cheks AC and HS with sliding scale insulin and hypoglycemic protocol Check A1c (3) Hematuria: Qualifiers: Hematuria type: gross Qualified Code(s): R31.0 - Gross hematuria Code(s): R31.9 - Hematuria, unspecified Status: Acute Assessment and Plan: CT of the abdomen did not offer up any kidney stones. May consider outpatient urology consult (4) Thrombocytopenia: Code(s): D69.6 - Thrombocytopenia, unspecified Status: Acute Assessment and Plan: No anticoagulation was given at this time as patient has thrombocytopenia which appears to be chronic. DS: Summary Hospital Course Hospital Course: 62-year-old male came with hematuria. Urology was consulted and will do outpatient cystoscopy. Otherwise he has sclerotic bone lesion on CT scan of his abdomen and pelvis. Lymphadenopathy was also noted on CT scan. Bone scan negative. Will have him follow-up with Dr. Leong as an outpatient. Patient is aware that Dr. Leong will see him as outpatient. Time Spent with Patient Time attestation: Total time spent providing and/or coordinating discharge services: Exam Narrative: Morbidly obese Patient is comfortable, NAD HEENT: eyes are clear and none icteric LUNGS: Normal respiratory effort ABD: BS+, Soft and nontender Lower extremities: no edema SKIN: nonjaundiced, left lower extremity posterior expect erythematosus no induration or discharge, Neuro: grossly intact. DS: Data Data Completed and Pending Labs on day of discharge: Labs from last 24 hours 01/28/23 01/28/23 01/28/23 08:18 06:18 06:18 Creatinine 1.20 Estim Creat Clear Calc 90 Estimated GFR > 60 POC Capillary Glucose 169 H Lactic Acid 0.8 01/27/23 01/27/23 01/27/23 20:03 16:50 11:32 Creatinine Estim Creat Clear Calc Estimated GFR POC Capillary Glucose 309 H 244 H 265 H Lactic Acid Preliminary micro results at discharge 01/25/23 17:43 Blood Culture - Preliminary Blood 01/25/23 17:43 Blood Culture - Preliminary Blood Discharge Plan Discharge Attending physician on discharge: Garcia Melendez Consulting providers: Kitty Redd ; Ramirez Mccarthy ; Yury Dowling I. Discharging Clinician: Garcia Melendez Patient Disposition: Home, Self-Care Activity: no preference Diet: as tolerated Stand Alone Forms: General Discharge Information Follow-up/Referrals: Gustavo Leong MD [Physician] - Ramirez Mccarthy MD [Physician] - Drew,Flo Callahan MD [Primary Care Provider] - Discharge Medications: New sulfamethoxazole-trimethoprim [Bactrim DS] 800-160 mg tablet 1 tablet PO Q12H Qty: 14 0RF Continued Humulin R Regular U-100 Insuln 100 unit/mL solution 15 unit subcut ACHS insulin glargine [Basaglar KwikPen U-100 Insulin] 100 unit/mL (3 mL) insulin pen 28 unit SUBCUT HS Date of admission: 01/25/23 17:19 Primary Care Provider: Drew,Flo Callahan Admitting Provider: Saumya Harris Attending physician on admission: Saumya Harris Condition: Stable
== END 2023-01-28 11:55 | disposition home or self-care (01) ==
LOC: ANHED 18:16 → ANH3MEDSUR 01-26 12:35
PROVIDERS: Emergency Medicine; Family Medicine; Nurse Practitioner; Nurse Practitioner Adult Health; Admitting Provider Family Medicine; Emergency Provider Physician Assistant; PCP Family Medicine; Visit Provider Chiropractor
DX: L03.116 Cellulitis of left lower limb (principal); E11.65 Type 2 diabetes mellitus with hyperglycemia; R31.9 Hematuria, unspecified; D69.6 Thrombocytopenia, unspecified; D64.9 Anemia, unspecified; Z12.5 Encounter for screening for malignant neoplasm of prostate; E66.01 Morbid (severe) obesity due to excess calories; Z68.42 Body mass index [BMI] 45.0-49.9, adult; K74.60 Unspecified cirrhosis of liver; R16.1 Splenomegaly, not elsewhere classified; K44.9 Diaphragmatic hernia without obstruction or gangrene; K80.20 Calculus of gallbladder without cholecystitis without obstruction; N39.0 Urinary tract infection, site not specified; K40.90 Unilateral inguinal hernia, without obstruction or gangrene, not specified as recurrent; N40.0 Benign prostatic hyperplasia without lower urinary tract symptoms; K42.9 Umbilical hernia without obstruction or gangrene; Z87.891 Personal history of nicotine dependence; Z79.4 Long term (current) use of insulin
CPT/HCPCS: 36415; 73630; 74176; 74177; 78306; 80048; 80053; 80202; 81001; 82565; 82948; 83036; 83605; 84153; 85025; 85055; 85652; 86140; 87040; 93971; 96365; 96366; 96367; 96375; 96376; 99285; A9503; G0378; G0379; J0692; J1815; J3370; Q9967

== ENCOUNTER 2023-03-15 11:16 | Outpatient (CLI) | payer OTHER, SELFPAY ==
[2023-03-15 11:53] LABS: Basophils Percent Auto 0.4 % (0.2-1.2); Eosinophils Absolute Auto 0.2 K/mm3 (0-0.3); Eosinophils Percent Auto 3.3 % (0-4.4); Hematocrit 34.6 % (42.0-52.0); Hemoglobin 11.6 g/dL (14.0-18.0); Immature Granulocyte Absolute 0.02 K/mm3 (0.00-0.031); Immature Granulocyte Percent A 0.4 % (0-0.5); Immature Platelet Fraction Pct 3.5 % (0.9-11.2); Lymphocytes Absolute Auto 1.08 K/mm3 (0.9-3.2); Lymphocytes Percent Auto 23.7 % (18.3-44.2); Mean Corpuscular HGB Conc 33.5 g/dl (32-36); Mean Corpuscular Hemoglobin 33.6 pg (26-34); Mean Corpuscular Volume 100.3 fl (80-100); Mean Platelet Volume 10.3 fl (7.4-10.4); Monocytes Absolute Auto 0.4 K/mm3 (0.1-0.6); Monocytes Percent Auto 9.5 % (2.6-8.5); Neutrophils Absolute Auto 2.9 K/mm3 (1.3-6.7); Neutrophils Percent Auto 62.7 % (45.5-73.1); Platelet Count Result 61 k/mm3 (150-375); Red Blood Count 3.45 M/mm3 (4.6-6.20); White Blood Count 4.6 K/mm3 (4.5-10.0)
[2023-03-15 12:07] LABS: Immunoglobulin A 636 mg/dL (70-400); Immunoglobulin G 2418 mg/dL (700-1600); Immunoglobulin M 119 mg/dL (40-230)
[2023-03-15 12:31] LABS: Prostate Specific Antigen 0.3 ng/mL (< OR = 4.0)
[2023-03-18 15:08] LABS: Albumin 3.4 g/dL (3.8-4.8); Alpha 1 Globulin 0.2 g/dL (0.2-0.3); Alpha 2 Globulin 0.6 g/dL (0.5-0.9); Beta 1 Globulin 0.4 g/dL (0.4-0.6); Gamma Globulin 2.4 g/dL (0.8-1.7); Protein, Total 7.6 g/dL (6.1-8.1)
[2023-03-19 10:45] LABS: Kappa\\Lambda Light Chains 1.77 (0.26-1.65); Lambda Light Chain 63.1 mg/L (5.7-26.3)
== END 2023-03-15 11:17 | disposition home or self-care (01) ==
PROVIDERS: PCP Family Medicine; Referring Provider Nurse Practitioner; Visit Provider Internal Medicine Hematology & Oncology
DX: Z12.5 Encounter for screening for malignant neoplasm of prostate (principal); M89.8X5 Other specified disorders of bone, thigh; R59.1 Generalized enlarged lymph nodes
CPT/HCPCS: 36415; 82784; 83883; 84153; 84155; 84165; 85025; 85055; 88184; G0103

== ENCOUNTER 2023-04-02 08:36 | Outpatient (CLI) | payer OTHER, SELFPAY ==
--- NOTE | ~2023-04-02 | CT_ITS ---
EXAMINATION: CT abdomen pelvis wo/w con DATE: 04/02/2023 09:28 INDICATION: Microscopic hematuria TECHNIQUE: Computed tomography (CT) of the abdomen and pelvis was performed without and with 130 cc O mnipaque 350 intravenous contrast. The dose-length product was 4179.76 mGy-cm. Automated exposure con trol and iterative reconstruction technique were employed. COMPARISON: CT dated 01/26/2023. FINDINGS: There is cirrhosis. There is splenomegaly. Findings compatible with portal venous hypertens ion. There are gallstones. There are chronic interstitial changes in the lung bases. No significant p leural or pericardial effusion. Nonobstructive bowel pattern. There is mild retroperitoneal lymphaden opathy. Ureters are normal in course and caliber. No renal stones. Normal appendix. Stable sclerotic lesion of the right ilium lateral to the SI joint. Moderate lower thoracic and lumbar spondylosis. IMPRESSION: 1. No acute abdominal abnormality. No findings to account for hematuria. 2: Cirrhosis of the liver with splenomegaly, compatible with portal venous hypertension. 3: Sclerotic lesion right ilium lateral to the SI joint, nonspecific. Consider metastatic disease if there is clinical history of malignancy. 4: Stable mild retroperitoneal lymphadenopathy, nonspecific. 5: Cholelithiasis. Reviewed, dictated and finalized at location B. IMPRESSION: 1. No acute abdominal abnormality. No findings to account for hematuria. 2: Cirrhosis of the liver with splenomegaly, compatible with portal venous hype rtension. 3: Sclerotic lesion right ilium lateral to the SI joint, nonspecific. Consider metastatic disease if there is clinical history of malignancy. 4: Stable mild retroperitoneal lymphadenopathy, nonspecific. 5: Cholelithiasis.
[2023-04-02 09:03] LABS: Estimated Glomerular Filt Rate > 60
== END 2023-04-02 08:37 | disposition home or self-care (01) ==
PROVIDERS: PCP Family Medicine; Visit Provider Nurse Practitioner
DX: R31.29 Other microscopic hematuria (principal); K80.20 Calculus of gallbladder without cholecystitis without obstruction; K76.0 Fatty (change of) liver, not elsewhere classified
CPT/HCPCS: 74178; Q9967

== ENCOUNTER 2024-10-25 14:46 | Outpatient (CLI) | payer OTHER, SELFPAY ==
--- NOTE | 2024-10-25 | ECHO_ITS ---
Patient Info Name: Blake Smith Age: 64 years : 1960 Gender: Male Ht: 73 in Wt: 350 lbs BSA: 2.94 m2 HR: 80 bpm BP: 152 / 68 mmHg Heart Rhythm: Sinus Rhythm Technical Quality: Good Exam Date: 10/25/2024 3:11 PM Exam Location: Echo Lab Patient Status: Outpatient Admit Date: 10/25/2024 Staff Ordering Physician: NallelyFlo MD Junior Data Analyst: Larisa Jo RDCS Attending Provider: Nallely, Flo Callahan MD Referring Physician: Drew LYMAN; Exam Type: CA echo doppler color flow Study Info Complete two-dimensional, color flow and Doppler transthoracic echocardiogram is performed. Summary 1. Complete two-dimensional, color flow and Doppler transthoracic echocardiogram is performed. 2. The left ventricle is mildly dilated with preserved systolic function. The left ventricular ejection fraction is visually estimated to be 60-65%. 3. The right ventricle is mildly dilated in size with preserved systolic function. 4. The atrial septum is thickened and cannot exclude and occluded device. Left Ventricle The left ventricle is mildly dilated with preserved systolic function. The left ventricular ejection fraction is visually estimated to be 60-65%. Right Ventricle The right ventricle is mildly dilated in size with preserved systolic function. Left Atria The left atrium is dilated. Right Atria The right atrium is dilated. Atrial Septum The atrial septum is thickened and cannot exclude and occluded device. Aortic Valve The aortic valve is trileaflet and moderately calcified. There is moderate aortic stenosis with a valve area of 1.4 cm2 and a mean gradient of 33mmHg. There is no aortic regurgitation. Pulmonic Valve The pulmonic valve is not well visualized. There is no significant pulmonic valve regurgitation. Mitral Valve There appears to be posterior annular calcification. The valve opens well with no significant mitral regurgitation. Tricuspid Valve The tricuspid valve is grossly normal. There is trace tricuspid regurgitation. Pericardium/Pleural Pericardium is normal in appearance with no evidence for significant pericardial effusion. Inferior Vena Cava Inferior vena cava is not well visualized. Aorta The ascending aorta is 3.6 cm in diameter. Left Ventricular Outflow Tract Name Value Normal LVOT 2D LVOT Diameter 2.3 cm LVOT Doppler LVOT Peak Gradient 8 mmHg LVOT Mean Gradient 5 mmHg LVOT VTI 36 cm LVOT VTI/AV VTI Ratio 0.3 LVOT Stroke Volume 145 ml LVOT CO 11.4 l/min LVOT CI 3.9 l/min/m2 Pulmonic Valve Name Value Normal PV Doppler PV Peak Gradient 9 mmHg PV Regurgitation Doppler TN Peak End Diastolic Velocity 113 cm/s Mitral Valve Name Value Normal MV Doppler MV Decel Gallia 652 cm/s2 MV PHT 70 ms MV Area (PHT) 3.1 cm2 4.0-5.0 MV Diastolic Function MV E Peak Velocity 157 cm/s MV A Peak Velocity 170 cm/s MV E/A 0.9 MV Decel Time 241 ms MV Annular TDI MV E/e' (Septal) 20.8 <=8.0 MV E/e' (Lateral) 17.9 <=8.0 MV E/e' (Average) 19.4 Tricuspid Valve Name Value Normal TV Regurgitation Doppler TR Peak Velocity 380 cm/s TR Peak Gradient 53 mmHg Aorta Name Value Normal Ascending Aorta Ao Root Diameter (MM) 3.4 cm Ao Root Diam Index (MM) 1.1 cm/m2 Aortic Valve Name Value Normal AV Doppler AV Peak Velocity 413 cm/s AV Peak Gradient 51 mmHg AV Mean Gradient 33 mmHg AV VTI 108 cm AV Area (Cont Eq VTI) 1.4 cm2 >=3.0 AV Area (Cont Eq Jaleel) 1.5 cm2 AV Regurgitation 2D LVOT Area 4.0 cm2 Ventricles Name Value Normal LV Dimensions 2D/MM IVS Diastolic Thickness (2D) 1.2 cm 0.6-1.0 LVID Diastole (2D) 6.1 cm 4.2-5.8 LVIW Diastolic Thickness (2D) 1.3 cm 0.6-1.0 LVID Systole (2D) 4.7 cm 2.5-4.0 LVOT Diameter 2.3 cm LV Mass (2D Cubed) 349.36 g 88.00-224.00 LV Mass Index (2D Cubed) 119 g/m2 49-115 Relative Wall Thickness (2D) 0.44 LV Fractional Shortening/Ejection Fraction 2D/MM LV Fractional Shortening (2D) 24 % 25-43 LV EF (2D Teicholz) 47 % 52-72 LV Diastolic Volume (4C MOD) 250 ml LV EF (4C MOD) 63 % LV Diastolic Length (4C) 10.3 cm LV Systolic Length (4C) 8.7 cm LV Stroke Volume (4C MOD) 157 ml Atria Name Value Normal LA Dimensions LA Dimension (2D) 5.6 cm 3.0-4.1 LA Dimen Index (2D) 1.9 cm/m2 LA Dimension (MM) 6.5 cm 3.0-4.1 LA Volume (4C A-L) 143 ml RA Dimensions RA Area (4C) 29.3 cm2 <=18.0 Report Signatures
== END 2024-10-25 14:47 | disposition home or self-care (01) ==
LOC: ANHCARD 14:48
PROVIDERS: PCP Family Medicine; Visit Provider Family Medicine
DX: I50.9 Heart failure, unspecified (principal)
CPT/HCPCS: 93306

== ENCOUNTER 2025-01-15 10:57 | Inpatient (IN) | payer OTHER, SELFPAY ==
[2025-01-15] VITALS (14 sets, daily range): BP systolic 129–169; BP diastolic 54–85; PULSE 69–81; RESP 14–24; TEMP 36.8–37.1; O2SAT 96–100; BMI 49.4
--- NOTE | ~2025-01-15 | XR_ITS ---
EXAMINATION: XR chest 2V DATE: 01/15/2025 12:17 INDICATION: Shortness of breath. TECHNIQUE: Frontal and lateral views of the chest were obtained. COMPARISON: Chest view 12/10/2017, CT abdomen and pelvis 04/02/2023 FINDINGS: The lung volumes are normal. There is a diffuse interstitial pattern in the lungs. No pleur al effusion or pneumothorax. The heart size is normal. IMPRESSION: 1. Diffuse interstitial pattern in the lungs, consistent with mild chronic interstitial lung disease and/or mild pulmonary edema. Reviewed, dictated and finalized at location B. IMPRESSION: 1. Diffuse interstitial pattern in the lungs, consistent with mild chronic inte rstitial lung disease and/or mild pulmonary edema.
--- NOTE | 2025-01-15 11:22 | ECG_ITS ---
Test Date: 2025-01-15 11:25:43 Measurements Intervals [place] Rate: 77 P: 29 VT: 178 QRS: -25 QRSD: 85 T: 55 QT: 349 QTc: 396 Interpretive Statements SINUS RHYTHM POSSIBLE LEFT ATRIAL ENLARGEMENT [-0.1mV P WAVE IN V1/V2] BORDERLINE LEFT AXIS DEVIATION [QRS AXIS < -20] No previous ECG available for comparison Electronically Signed On 01-15-2025 11:54:46 CDT by Camilo Gee M.D.
[2025-01-15 11:48] LABS: Basophils Percent Auto 0.6 % (0.2-1.2); Eosinophils Absolute Auto 0.3 K/mm3 (0-0.3); Eosinophils Percent Auto 4.9 % (0-4.4); Hematocrit 29.5 % (42.0-52.0); Hemoglobin 9.4 g/dL (14.0-18.0); Immature Granulocyte Absolute 0.03 K/mm3 (0.00-0.031); Immature Granulocyte Percent A 0.6 % (0-0.5); Immature Platelet Fraction Pct 1.4 % (0.9-11.2); Lymphocytes Absolute Auto 0.81 K/mm3 (0.9-3.2); Lymphocytes Percent Auto 15.9 % (18.3-44.2); Mean Corpuscular HGB Conc 31.9 g/dl (32-36); Mean Corpuscular Hemoglobin 33.5 pg (26-34); Mean Platelet Volume 9.8 fl (7.4-10.4); Monocytes Absolute Auto 0.6 K/mm3 (0.1-0.6); Monocytes Percent Auto 11.6 % (2.6-8.5); Neutrophils Absolute Auto 3.4 K/mm3 (1.3-6.7); Neutrophils Percent Auto 66.4 % (45.5-73.1); Platelet Count Result 61 k/mm3 (150-375); Red Blood Count 2.81 M/mm3 (4.6-6.20); White Blood Count 5.1 K/mm3 (4.5-10.0)
[2025-01-15 12:28] LABS: Alanine Aminotransferase 23 U/L (6-50); Albumin Level 3.4 g/dL (3.5-5.1); Alkaline Phosphatase 185 U/L (38-126); Anion Gap 7 mmol/L (4-12); Aspartate Amino Transferase 40 U/L (17-59); Bilirubin,Total 1.1 mg/dL (0.2-1.3); Blood Urea Nitrogen 35 mg/dL (9-20); Calcium 8.7 mg/dL (8.4-10.2); Carbon Dioxide 24 mmol/L (22-30); Chloride 109 mmol/L (98-107); Estimated CRCL calculation 52 ml/min; Estimated Glomerular Filt Rate 31; Glucose 158 mg/dL (65-110); Potassium 4.9 mmol/L (3.4-5.0); Sodium 140 mmol/L (137-145)
--- NOTE | 2025-01-15 12:29 | ED.EXTPRO ---
HPI - Extremity Problem General Chief complaint: Extremity Problem,Nontraumatic Stated complaint: BLE edema Time Seen by Provider: 01/15/25 12:03 History of Present Illness HPI Narrative: 64-year-old male presenting to the emergency department for evaluation of bilateral lower extremity edema up to the abdomen. He states that he was told that he has congestive heart failure recently and previously was on furosemide and recently started Jardiance. He had recent titration of his medications and taking decreased dose of furosemide and knows that he is having worsening swelling in his legs, scrotum and lower abdomen. Denies any chest pain but states that he has got some exertional dyspnea now. 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 Family present at bedside states he has a long history of anemia and thrombocytopenia that he is currently being worked up on outpatient basis with with Hematology. Patient sources urinating without difficulty and noted to have been going less frequently secondary to taking less furosemide. Related Data Home Medications ?Medication ?Instructions ?Recorded ?Confirmed ?Last Taken ?Type insulin glargine 100 unit/mL (3 28 unit subcut HS 01/25/23 04/15/23 04/15/23 History mL) subcutaneous pen (Basaglar KwikPen U-100 Insulin) insulin regular human 100 unit/mL 15 unit subcut ACHS 01/25/23 04/15/23 04/15/23 History injection solution (Humulin R Regular U-100 Insulin) Allergies Allergy/AdvReac Type Severity Reaction Status Date / Time oxycodone Allergy Intermediate Itching Verified 04/15/23 14:05 orange juice Allergy Itching Verified 04/15/23 14:05 tomato Allergy Itching Verified 04/15/23 14:05 Review of Systems Review of Systems: As [facility] Past Medical History Medical History DM2 (diabetes mellitus, type 2) History of diabetes mellitus Surgical History Surgical History H/O cataract extraction S/P ORIF (open reduction internal fixation) fracture Left ankle with jesus manuel placement with subsequent removal later Family History Family History Mother Cancer Social History Social History Social History: 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 He has 3 children and is and lives with his . Code status full code Smoking packs per day: 0.5 Smoking cigarettes per day: 10.0 Years smoked: 15 Smoking pack-years: 7.50 Smoking status: Former smoker Tobacco type: cigarettes Second hand tobacco smoke exposure: Yes Smoking end date: 11/08/91 Alcohol intake: current Drinks per week: 4 Substance use: never Substance use type: does not use Lack of Transportation: No Lack of Food: Never True Current Housing: I Have Housing Concerned About Future Housing: No Difficulty Paying Gas/Electric Bills: YES Difficulty Paying for Meds: No Currently Unemployed: No Education: High School Diploma/GED Difficulty w/ Childcare or Family Care: No Living arrangements: with family Spiritual care concerns: No Exam Narrative: GENERAL: Morbidly obese but well-appearing, not any acute distress. HEAD: [Normocephalic, atraumatic.] EYES: [PERRLA and EOMI.] ENT: Nares clear, no rhinorrhea or epistaxis. Mucous membranes moist. NECK: Supple. CHEST: [Clear to auscultation. No respiratory distress.] HEART: [Regular rate and rhythm]. No murmur heard. [Normal peripheral pulses.] ABDOMEN: [Soft, nondistended], [nontender], [No rigidity or guarding] anasarca with pitting edema in the abdomen. Pitting edema in the scrotum. No overlying skin changes or cellulitic evidence/rash EXTREMITIES: Bilateral 2+ pitting edema with anasarca up to the abdomen. SKIN: Warm, dry, no rash. NEURO: [No focal deficits]. Alert and oriented [x3.] PSYCH: [Normal mood and affect.] Course Vital Signs Vital signs: Vital Signs Temperature 36.8 C 01/15/25 11:13 Pulse Rate 79 01/15/25 11:13 Respiratory Rate 20 01/15/25 11:13 Blood Pressure 168/85 H 01/15/25 11:13 Pulse Oximetry 97 01/15/25 11:13 Oxygen Delivery Room Air 01/15/25 11:13 Temperature 36.8 C 01/15/25 11:13 Pulse Rate 73 01/15/25 13:22 Respiratory Rate 22 H 01/15/25 13:22 Blood Pressure 145/66 H 01/15/25 13:22 Pulse Oximetry 99 01/15/25 13:22 Oxygen Delivery Room Air 01/15/25 11:23 MDM - Extremity (Nontraumatic) MDM Narrative Medical decision making narrative: 64-year-old male with a past medical history including type 2 diabetes, hypertension and potentially congestive heart failure according to himself. He has been started on Jardiance recently and told to start taking decreased doses of his Lasix. Has been doing with bilateral lower extremity edema for some time now but knows that is worsening with involvement in his scrotum and lower abdomen now. Endorses some subjective shortness of breath with exertion but denies any chest pain at rest or with exertion. On examination he does have anasarca with pitting edema throughout the lower extremities, scrotum and lower abdomen. He has clear breath sounds throughout, not tachycardic with normal vital signs aside from some stable hypertension. Considerations presently are for congestive heart failure exacerbation versus edema secondary to decreased Lasix, edema secondary to Jardiance initiation, kidney issues, liver issues, or potential malnutrition albumin issue. Workup was ordered including CBC, CMP, BNP, two-view chest x-ray, EKG. Workup shows no leukocytosis, anemia of 9.4 which is slightly lower than his previous baseline. No recent labs. He has a known anemia and thrombocytopenia that follows up with outpatient. Electrolytes largely within normal limits, BUN and creatinine are elevated compared to his baseline indicative of an MARIO likely congestive related secondary to anasarca rather than pre renal azotemia. Will give him a dose of 80 mg Lasix to overcome this and assisted diuresis. Glucose of 158, normal LFTs. BNP elevated at nearly 2000 consistent with his clinical exam and x-ray showing mild pulmonary edema. I went and re-evaluated the patient and he stated that he was beginning to urinate after the Lasix. I discussed the laboratory results findings with the patient and my concerns that his Jardiance could have been potentially affect his kidneys or his fluid overload is causing obstruction and venous congestion causing his MARIO. He requires aggressive diuresis and management of his medications. Discussed the case with the hospitalist service currently being covered by the midlevel provider Nancy. Patient was accepted the hospitalist under telemetry monitored bed and will have an echocardiogram ordered. Patient comfortable this plan of care. Lab Data 01/15/25 11:35 01/15/25 11:35 Labs: Lab Results 01/15/25 01/15/25 Range/Units 11:35 13:54 WBC 5.1 (4.5-10.0) K/mm3 RBC 2.81 L (4.6-6.20) M/mm3 Hgb 9.4 L (14.0-18.0) g/dL Hct 29.5 L (42.0-52.0) % MCV 105.0 H (80-100) fl MCH 33.5 (26-34) pg MCHC 31.9 L (32-36) g/dl RDW 14.0 (11.5-14.5) % Plt Count 61 L (150-375) k/mm3 MPV 9.8 (7.4-10.4) fl Immature Gran % (Auto) 0.6 H (0-0.5) % Neut % (Auto) 66.4 (45.5-73.1) % Lymph % (Auto) 15.9 L (18.3-44.2) % Powell % (Auto) 11.6 H (2.6-8.5) % Eos % (Auto) 4.9 H (0-4.4) % Baso % (Auto) 0.6 (0.2-1.2) % Lymph # (Auto) 0.81 L (0.9-3.2) K/mm3 Powell # (Auto) 0.6 (0.1-0.6) K/mm3 Eos # (Auto) 0.3 (0-0.3) K/mm3 Baso # (Auto) 0.0 (0.0-0.1) K/mm3 Abs Immat Gran (auto) 0.03 (0.00-0.031) K/mm3 Absolute Neuts (auto) 3.4 (1.3-6.7) K/mm3 Absolute Nucleated RBC 0.000 (0.0-0.012) K/mm3 Nucleated RBC % 0.0 (0.0-0.2) % % Immature Plt Fraction 1.4 (0.9-11.2) % Sodium 140 (137-145) mmol/L Potassium 4.9 (3.4-5.0) mmol/L Chloride 109 H (98-107) mmol/L Carbon Dioxide 24 (22-30) mmol/L Anion Gap 7 (4-12) mmol/L BUN 35 H D (9-20) mg/dL Creatinine 2.19 H (0.7-1.3) mg/dL Estim Creat Clear Calc 52 ml/min Estimated GFR 31 L (59 - ) Glucose 158 H (65-110) mg/dL POC Capillary Glucose 120 H (65-105) mg/dl Calcium 8.7 (8.4-10.2) mg/dL Total Bilirubin 1.1 (0.2-1.3) mg/dL AST 40 (17-59) U/L ALT 23 (6-50) U/L Alkaline Phosphatase 185 H (38-126) U/L NT-Pro-B Natriuret Pep 1960 H (19.9-100) pg/mL Total Protein 8.0 (6.3-8.2) g/dL Albumin 3.4 L (3.5-5.1) g/dL ECG Data EKG #1: Attestation EKG: I personally reviewed and interpreted this ECG as follows: ECG completion date: 01/15/25 ECG completion time: 11:25 Prior ECG tracings: not available for review Interpretation: Regular rhythm, leftward deviated axis, regular rate. Rate of 77, QRS 85, QTC 396. No ST segment elevations, depressions or inversions. No previous EKG for comparison. Overall final interpretation normal sinus rhythm. Discharge Plan Discharge Clinical Impression: Anasarca, MARIO (acute kidney injury), History of CHF (congestive heart failure) Patient Disposition: Still a Patient Condition: Stable Patient Language: Kiswahili Prescriptions: No Action Humulin R Regular U-100 Insuln 100 unit/mL solution 15 unit subcut ACHS insulin glargine [Basaglar KwikPen U-100 Insulin] 100 unit/mL (3 mL) insulin pen 28 unit SUBCUT HS Follow-up/Referrals: Drew,Flo Callahan MD [Primary Care Provider] - Time of Disposition: 14:18
[2025-01-15 12:43] LABS: NT Pro B Type Natriuretic Pept 1960 pg/mL (19.9-100)
--- OUTSIDE RECORDS SUMMARY | 2025-01-15 13:06 | XMS_ITS | Patient Health Summary ---
Author Organization [facility] Address [address] [place] [address] Care Team Providers Care Hand Plate Stacker Name Role Phone Flo Russell MD Primary Care Provider [phone] Note from [facility],non-owned Affiliates and Associated Physician Practices is amultiple site organization consisting of ambulatory clinics and hospital sitesin [place], [place], [place] and [place]. This disclosure is being madepursuant to the Care Everywhere program and may not contain all information available regarding this patient. Last updated 18.[facility] Allergies * Oxycodone(Itching) -Medium Criticality Medications * Be aware that medications may not be up to date on this document. Alwaysverify current medications with the patient. * Blood Glucose Monitoring Suppl (ACCU-CHEK GUIDE) w/Device KIT(Started 01/05/2019) * ACCU-CHEK GUIDE test strip(Started 03/01/2019) * HUMULIN N vial(Started 04/24/2019) INJECT 15 UNITS SUBCUTANEOUSLY TWICE DAILY 2 refills left * BD INSULIN SYRINGE U/F 31G X /16 0.5 ML syringe(Started 05/01/2019) * ACCU-CHEK FASTCLIX LANCETS(Started 03/25/2019) * HUMULIN R injection(Started 04/06/2019) * meloxicam (MOBIC) 7.5 MG tablet(Started 11/14/2019) * B-D ULTRAFINE III SHORT PEN 31G X 8 MM needle(Started 11/18/2019) * BASAGLAR KWIKPEN (BASAGLAR) pen(Started 11/18/2019) Active Problems No known active problems Social History Tobacco Use Types Packs/Day Years Used Date Smoking Tobacco: Former Smokeless Tobacco: Never Sex and Gender Information Value Date Recorded Sex Assigned at Not on file Gender Identity Not on file Sexual Orientation Not on file Last Filed Vital Signs Vital Sign Reading Time Taken Comments Blood Pressure 148/63 01/15/2020 2:45 PM CDT Pulse 85 01/15/2020 2:45 PM CDT Temperature 36.6 C (97.9 F) 01/15/2020 2:45 PM CDT Respiratory Rate 16 01/15/2020 2:45 PM CDT Oxygen Saturation 98% 01/15/2020 2:45 PM CDT Inhaled Oxygen Concentration - - Weight 149.7 kg (330 lb) 07/05/2019 12:10 PM CDT Height 185.4 cm (6' 1 ) 07/05/2019 12:10 PM CDT Body Mass Index 43.54 07/05/2019 12:10 PM CDT Procedures * AZ DRAIN/INJECT LARGE JOINT/BURSA(Performed 01/22/2020) Performed for Chronic pain of right knee * AZ DRAIN/INJECT LARGE JOINT/BURSA(Performed 12/07/2019) Performed for Primary osteoarthritis of left knee, Effusion of left knee * XR KNEE RIGHT 3VW(Performed 12/04/2019) Performed for Chronic pain of right knee * PATHOLOGY SMEAR BODY FLUID(Performed 12/04/2019) Performed for Effusion of left knee, Primary osteoarthritis of left knee * CRYSTAL INDENTIFICATION SYNOVIAL FLUID(Performed 12/04/2019) Performed for Effusion of left knee, Primary osteoarthritis of left knee * DIFFERENTIAL MANUAL FLUID(Performed 12/04/2019) Performed for Effusion of left knee, Primary osteoarthritis of left knee * CELL COUNT W DIFF W CRYSTALS SYNOVIAL(Performed 12/04/2019) Performed for Effusion of left knee, Primary osteoarthritis of left knee * CULTURE FLUID+GRAM STAIN(Performed 12/04/2019) Performed for Primary osteoarthritis of left knee, Effusion of left knee * MRI KNEE LEFT WO CONTRAST(Performed 08/26/2019) Performed for Primary osteoarthritis of left knee, Chronic pain of left knee * AZ DRAIN/INJECT LARGE JOINT/BURSA(Performed 07/05/2019) Performed for Primary osteoarthritis of left knee * XR KNEE LEFT 4VW OR MORE(Performed 05/04/2019) Performed for Left knee pain, unspecified chronicity Results * AZ DRAIN/INJECT LARGE JOINT/BURSA (01/22/2020 1:53 PM CDT) Narrative Ag Barbosa III, MD - 01/22/2020 1:53 PM CDT Ag Barbosa III, MD 01/22/2020 1:53 PM After discussion of risks, benefits, and alternatives, the patient agreed to corticosteroid injection. The area was marked and cleaned in the usual sterile fashion using Betadine and alcohol. Ethyl chloride for topical anesthesia. The injection was performed at the right superolateral knee using 0.5% ropivacaine and 40 mg of Kenalog. This was well tolerated. Ag Barbosa III, MD PROCEDURE/MIN OR SURGICAL ORDERABLES * AZ DRAIN/INJECT LARGE JOINT/BURSA (12/07/2019 5:18 PM METAL CONTROL COORDINATOR) Narrative Ag Barbosa III, MD - 12/07/2019 5:18 PM METAL CONTROL COORDINATOR Ag Barbosa III, MD 12/07/2019 5:19 PM After discussion of risks, benefits, and alternatives, the patient agreed to corticosteroid injection. The area was marked and cleaned in the usual sterile fashion using Betadine and alcohol. Ethyl chloride for topical anesthesia. The injection was performed at the left superolateral knee using 0.5% ropivacaine and 40 mg of Kenalog. This was well tolerated. Ag Barbosa III, MD PROCEDURE/MIN OR SURGICAL ORDERABLES * XR KNEE RIGHT 3VW (12/04/2019 12:54 PM METAL CONTROL COORDINATOR) Anatomical Region Laterality Modality Lower Extremity Radiographic Jen ging 12/04/2019 2:06 PM METAL CONTROL COORDINATOR Impressions 12/04/2019 2:08 PM METAL CONTROL COORDINATOR IMPRESSION: Mild osteoarthritis. This report was electronically signed by GERARDO COHEN MD on 12/04/2019 2:08 PM . Narrative 12/04/2019 2:08 PM METAL CONTROL COORDINATOR Exam: XR KNEE RIGHT 3VW History: M25.561: Chronic pain of right knee G89.29: Chronic pain of right knee Comparison: 05/04/2019 Findings: No acute fracture or dislocation is seen. Mild osteoarthritis is present. A small effusion is seen. Procedure Note Gerardo Cohen MD - 12/04/2019 Exam: XR KNEE RIGHT 3VW History: M25.561: Chronic pain of right knee G89.29: Chronic pain of right knee Comparison: 05/04/2019 Findings: No acute fracture or dislocation is seen. Mild osteoarthritis ispresent. A small effusion is seen. IMPRESSION: Mild osteoarthritis. This report was electronically signed by GERARDO COHEN MD on12/04/2019 2:08 PM . Ag Barbosa III, MD DIAGNOSTIC IM AGING ORDERABLES * CRYSTAL INDENTIFICATION SYNOVIAL FLUID (12/04/2019 12:45 PM METAL CONTROL COORDINATOR) Crystal Exam Fluid No crystals seen. To be reviewed by pathologist. 12/04/2019 10:14 PM METAL CONTROL COORDINATOR [facility] Fluid SYNOVIAL FLUID / Unknown Collection / Unknown 12/04/2019 12:45 PM METAL CONTROL COORDINATOR 12/04/2019 6:36 PM METAL CONTROL COORDINATOR Ag Barbosa III, MD LAB - BODY FL UID ORDERABLES Performing Organization Address [facility] Co de Phone Number [address] [phone] * PATHOLOGY SMEAR BODY FLUID (12/04/2019 12:45 PM METAL CONTROL COORDINATOR) Pathology Diff Review DIFFERENTIAL REVIEW - CONFIRMED DIFFERENTIAL REVIEW - CONFIRMED 12/05/2019 2:11 PM METAL CONTROL COORDINATOR [facility] Comment: The patient is a 59 y/o man who presents with left knee pain. Agreed with cell count and differential. No crystals seen. Clinical and microbiologic correlation is recommended. MD London Holden MD Fluid SYNOVIAL FLUID / Unknown Collection / Unknown 12/04/2019 12:45 PM METAL CONTROL COORDINATOR 12/04/2019 6:36 PM METAL CONTROL COORDINATOR Ag Barbosa III, MD LAB - PATHOLO GY/CYTOLOGY ORDERABLES Performing Organization Address [facility]/[place] [address], [facility] [phone] * DIFFERENTIAL MANUAL FLUID (12/04/2019 12:45 PM METAL CONTROL COORDINATOR) Segs % Fluid 1 % 12/04/2019 9:31 PM [facility] Lymphocytes % Fluid 3 % 12/04/2019 9:31 PM METAL CONTROL COORDINATOR [facility] Monocytes % Fluid 34 % 020 9:31 PM METAL CONTROL COORDINATOR [facility] Macrophages % Fluid 10 % 12/04/2019 9:31 PM METAL CONTROL COORDINATOR [facility] Mesothelials % Fluid 52 % 12/04/2019 9:31 PM [facility] Fluid SYNOVIAL FLUID / Unknown Collection / Unknown 12/04/2019 12:45 PM METAL CONTROL COORDINATOR 12/04/2019 6:36 PM METAL CONTROL COORDINATOR Narrative [facility] - 12/04/2019 9:31 PM METAL CONTROL COORDINATOR Few clumps of mesothelial cells seen Ag Barbosa III, MD LAB - BODY FL UID ORDERABLES [facility] [address] [phone] * CULTURE FLUID+GRAM STAIN (12/04/2019 12:45 PM METAL CONTROL COORDINATOR) Culture No growth CATRINA 12/12/2019 7:17 AM METAL CONTROL COORDINATOR [facility] MICROBIOLOGY Gram Stain No organisms seen 020 7:17 AM METAL CONTROL COORDINATOR [facility] MICROBIOLOGY Gram Stain Rare Polymorphonuclear cells 12/12/2019 7:17 AM [facility] MICROBIOLOGY Fluid SYNOVIAL FLUID / Unknown Collection / Unknown 12/04/2019 12:45 PM METAL CONTROL COORDINATOR 12/04/2019 6:36 PM METAL CONTROL COORDINATOR Ag Barbosa III, MD LAB - MICROBI OLOGY ORDERABLES [facility] MICROBIOLOGY [address] [phone] * (ABNORMAL) CELL COUNT W DIFF W CRYSTALS SYNOVIAL (12/04/2019 12:45 PM METAL CONTROL COORDINATOR) Color Fluid Yellow(A) Colorles s, Straw 12/04/2019 7:24 PM [facility] Clarity Fluid Hazy(A) Clear 12/04/2019 7:24 PM [facility] Volume Fluid 2.0 mL 12/04/2019 7:24 PM [facility] Viscosity Decreased 12/04/2019 7:24 PM [facility] Crystal Exam Fluid Crystal examination to follow. 12/04/2019 7:24 PM [facility] WBC Calculation Fluid 243(H) 0 - 200 /uL 12/04/2019 7:24 PM [facility] RBC Calculation 112 /uL 0 7:24 PM [facility] Differential Manual Differential to follow. 12/04/2019 7:24 PM [facility] Fluid SYNOVIAL FLUID / Unknown Collection / Unknown 12/04/2019 12:45 PM METAL CONTROL COORDINATOR 12/04/2019 6:36 PM METAL CONTROL COORDINATOR Narrative [facility] - 12/04/2019 7:24 PM METAL CONTROL COORDINATOR No reference ranges established for body fluid cell counts. The reference ranges provided are derived from published literature. The test results must be integrated into the clinical context for interpretation. Ag Barbosa III, MD LAB - BODY FL UID ORDERABLES [address] [phone] * MRI KNEE LEFT WO CONTRAST (08/26/2019 10:01 AM CDT) Anatomical Region Laterality Modality Lower Extremity Magnetic Resonan ce 08/28/2019 9:47 AM CDT Impressions 08/28/2019 10:25 AM CDT IMPRESSION: 1. Tricompartmental arthritis, moderate to severe in the medial compartment, moderate in the patellofemoral compartment, and mild in the lateral compartment. 2. Complex tear in the posterior horn of the medial meniscus extending into the body. 3. Extensive bone marrow edema in the medial tibial plateau and to a lesser extent medial femoral condyle. The differential diagnosis includes bone contusions, stress injury, and edema related to the arthritis and meniscal tear. 4. Moderate effusion. 5. Small popliteal cyst. Dictated by Mane Herrera MD (vice president of talent management). I, Dr. GERARDO COHEN MD have personally reviewed and interpreted this examination/study. This report was electronically signed by GERARDO COHEN MD on 08/28/2019 10:25 AM . Narrative 08/28/2019 10:25 AM CDT EXAMINATION: Magnetic resonance imaging (MRI) of the left knee without contrast HISTORY: chronic left knee pain and instability not improved with 6 weeks PT, NSAIDs, icing and steroid injection TECHNIQUE: MRI of the left knee was performed using multiple pulse sequences in multiple planes without contrast. COMPARISON: Left knee radiograph from 05/04/2019 FINDINGS: The anterior and posterior cruciate ligaments are intact. The medial collateral ligament is intact and mildly bowed medially. The lateral complex is intact. The fibular collateral ligament is mildly thickened at the femoral attachment. In the medial compartment, there is extensive cartilage thinning including areas of full-thickness cartilage loss. There is a complex tear in the posterior horn of the medial meniscus extending into the body. The body is mildly extruded. There is a large area of moderate to severe intensity bone marrow edema in the medial tibial plateau and a smaller area of moderate intensity marrow edema in the medial femoral condyle. In the lateral compartment, there is mild cartilage thinning and irregularity. There is no lateral meniscal tear. There is an area of mild bone marrow edema in the far posterior aspect of the lateral femoral condyle. In the patellofemoral compartment, the articular cartilage demonstrated small thinning and irregularity. There is a high-grade area of cartilage thinning at the inferior aspect of the patella with subchondral cysts and/or mild bone marrow edema. The patella is moderately subluxed laterally. The medial and lateral patellar retinacula are intact. The distal quadriceps and patellar tendons are normal. There is a moderate effusion. A thin curvilinear hypointense band is seen within the joint fluid in the suprapatellar region consistent with a superior plica. A small popliteal cyst is noted. Muscle bulk is normal. There is mild semimembranosus tendinosis. Subcutaneous edema is seen, greater anteriorly. Procedure Note Gerardo Cohen MD - 08/28/2019 EXAMINATION: Magnetic resonance imaging (MRI) of the left knee without contrast HISTORY: chronic left knee pain and instability not improved with 6weeks PT, NSAIDs, icing and steroid injection TECHNIQUE: MRI of the left knee was performed using multiple pulse sequences in multiple planes without contrast. COMPARISON: Left knee radiograph from 05/04/2019 FINDINGS: The anterior and posterior cruciate ligaments are intact. The medial collateral ligament is intact and mildly bowed medially. The lateral complex is intact. The fibular collateral ligament is mildly thickenedat the femoral attachment. In the medial compartment, there is extensive cartilage thinningincluding areas of full-thickness cartilage loss. There is a complex tear in the posterior horn of the medial meniscus extending into the body. The bodyis mildly extruded. There is a large area of moderate to severe intensity bone marrow edema in the medial tibial plateau and a smaller area of moderate intensity marrow edema in the medial femoral condyle. In the lateral compartment, there is mild cartilage thinning and irregularity. There is no lateral meniscal tear. There is an area ofmild bone marrow edema in the far posterior aspect of the lateral femoral condyle. In the patellofemoral compartment, the articular cartilage demonstrated small thinning and irregularity. There is a high-grade area of cartilage thinning at the inferior aspect of the patella with subchondral cysts and/or mild bone marrow edema. The patella is moderately subluxed laterally. The medial and lateral patellar retinacula are intact. The distal quadriceps and patellar tendons are normal. There is a moderate effusion. A thin curvilinear hypointense band isseen within the joint fluid in the suprapatellar region consistent with a superior plica. A small popliteal cyst is noted. Muscle bulk is normal. There is mild semimembranosus tendinosis. Subcutaneous edema is seen, greater anteriorly. IMPRESSION: 1. Tricompartmental arthritis, moderate to severe in the medial compartment, moderate in the patellofemoral compartment, and mild in the lateral compartment. 2. Complex tear in the posterior horn of the medial meniscus extending into the body. 3. Extensive bone marrow edema in the medial tibial plateau and to a lesser extent medial femoral condyle. The differential diagnosisincludes bone contusions, stress injury, and edema related to the arthritis and meniscal tear. 4. Moderate effusion. 5. Small popliteal cyst. Dictated by Mane Herrera MD (vice president of talent management). I, Dr. GERARDO COHEN MD have personally reviewed and interpreted this examination/study. This report was electronically signed by GERARDO COHEN MD on 08/28/2019 10:25 AM . Gay Obrien PA-C MR ORDERABLES * AZ DRAIN/INJECT LARGE JOINT/BURSA (07/05/2019 1:05 PM CDT) Narrative Gay Obrien PA-C - 07/05/2019 1:05 PM CDT Gay Obrien PA-C 07/05/2019 1:06 PM Orthopaedic Surgery Procedure Note Diagnosis: Left knee pain Procedure: Injection of Corticosteroid into the Left knee. Indications: Blake Smith is a 59 year old male who has Left knee pain and arthritis. Procedure Details: Mr. Smith was informed of his condition, and the potential benefits of injection of steroid. The patient was counseled as to the risks of the procedure. He was understanding and agreeable. The patient was placed into the supine position. The area was prepped with beta-dine. Utilizing the supralateral patellar portal, the skin, subcutaneous, and pericapsular tissues were injected with 3 cc 1% lidocaine without epinephrine using a 21 Ga needle. The patient's Left knee was then entered. Confirmation of location inside the joint was evidenced by aspiration of 60 cc straw colored synovial fluid. 2 cc of Kenalog and 3 cc 1% lidocaine without epinephrine was injected into the joint. The needle was removed and the needle site dressed with a semi-sterile bandage. The patient tolerated the procedure well. Remainder of plan per note. Gay Obrien PA-C 07/05/2019 1:05 PM Gay Obrien PA-C PROCEDURE/MINOR SURGICAL ORDERABLES * XR KNEE LEFT 4VW OR MORE (05/04/2019 2:33 PM CDT) Anatomical Region Laterality Modality Lower Extremity Radiographic Jen ging 05/04/2019 2:38 PM CDT Impressions 05/04/2019 4:24 PM CDT Impression: 1. No acute osseous abnormality or evidence of arthritis. 2. Small joint effusion.. Dictated by Pineda Haddad MD (Resident) IDr. RADHA M.D. have personally reviewed and interpreted this examination/study. This report was electronically signed by RADHA BERNAL M.D. on 05/04/2019 4:24 PM . Narrative 05/04/2019 4:24 PM CDT Exam: XR KNEE LEFT 4 views Date: 05/04/2019 2:34 PM History: knee pain Comparison: None. Findings: No acute fracture or dislocation is seen. The joint spaces are preserved. There is a small joint effusion. Bone density is normal. No soft tissue swelling. Procedure Note Radha Bernal MD - 05/04/2019 Exam: XR KNEE LEFT 4 views Date: 05/04/2019 2:34 PM History: knee pain Comparison: None. Findings: No acute fracture or dislocation is seen. The joint spaces arepreserved. There is a small joint effusion. Bone density is normal. No soft tissue swelling. Impression: 1. No acute osseous abnormality or evidence of arthritis. 2. Small joint effusion.. Dictated by Pineda Haddad MD (Resident) I, Dr. RADHA BERNAL M.D. have personally reviewed and interpreted this examination/study. This report was electronically signed by RADHA BERNAL M.D. on 05/04/2019 4:24 PM . Gay Obrien PA-C DIAGNOSTIC IMAG ING ORDERABLES Care Teams Hand Plate Stacker Relationship Specialty Start Date End Date Flo Russell MD [address] [place] [phone] PCP - General 05/04/19
--- OUTSIDE RECORDS SUMMARY | 2025-01-15 13:07 | XMS_ITS | Referral Summary ---
Author Organization [facility] Address [address] [place] [address] Care Team Providers Care Kitman Name Role Phone Flo Russell MD Primary Care Provider [phone] Source Comments [facility],non-owned Affiliates and Associated Physician Practices is amultiple site organization consisting of ambulatory clinics and hospital sitesin [place], [place], [place] and [place]. This disclosure is being madepursuant to the Care Everywhere program and may not contain all information available regarding this patient. Last updated 18.[facility] Allergies Active Allergy Reactions Criticality Noted Date Comments Oxycodone Itching Medium 05/04/2019 Medications * Be aware that medications may not be up to date on this document. Alwaysverify current medications with the patient. Medication Sig Dispensed Refills Start Date End Date Status Blood Glucose Monitoring Suppl (ACCU-CHEK GUIDE) w/Device KIT 01/05/2019 Active ACCU-CHEK GUIDE test strip 03/01/2019 Active HUMULIN N vial INJECT 15 UNITS SUBCUTANEOUSLY TWICE DAILY 2 04/24/2019 Active BD INSULIN SYRINGE U/F 31G X 5/16 0.5 ML syringe 05/01/2019 Active ACCU-CHEK FASTCLIX LANCETS 03/25/2019 Active HUMULIN R injection 04/06/2019 Active meloxicam (MOBIC) 7.5 MG tablet 11/14/2019 Active B-D ULTRAFINE III SHORT PEN 31G X 8 MM needle 11/18/2019 Active BASAGLAR KWIKPEN (BASAGLAR) pen 11/18/2019 Active Active Problems No known active problems Social [...] Mass Index 43.54 07/05/2019 12:10 PM CDT Plan of Treatment Not on file Goals Goal Patient Goal Type Associated Problems Recent Progress Patient-Stated? Author Mobility General No Heike Aviles RN Note: Expected end date: 11/08/2019 The goal is to maintain or improve your mobility at the optimum level for you. Interventions: Care Teams Kitman Relationship Specialty Start Date End Date Flo Russell MD [address] [phone] PCP - General 05/04/19
--- OUTSIDE RECORDS SUMMARY | 2025-01-15 13:07 | XMS_ITS | Clinical Summary ---
Author Organization [facility] Address [address] [place] [address] Care Team Providers Care Bacteriology Teacher Name Role Phone Flo Russell MD Primary Care Provider + Allergies Active Allergy Reactions Criticality Noted Date Comments Oxycodone Itching Low 02/22/2023 Medications insulin NPH human (HUMULIN N,NOVOLIN N) 100 unit/mL pen syringe Inject by subcutaneous injection. Active insulin glargine (Basaglar KwikPen U-100 Insulin) 100 unit/mL pen syringe Inject by subcutaneous injection. Active Active Problems No known active problems Family History Medical History Relation Name Comments Lymphoma Mother Relation Name Status Comments Brother Alive Daughter Alive Father Mother Sister 1 Alive Sister 2 Alive Sister 3 Alive Son 1 Alive Son 2 Alive Social History Tobacco Use Types Packs/Day Years Used Date Smoking Tobacco: Former Cigarettes Smokeless Tobacco: Never Tobacco Cessation:Counseling Given: Not Answered Alcohol Use Standard Drinks/Week Comments Yes 1 (1 standard drink = 0.6 oz pur e alcohol) Sex and Gender Information Value Date Recorded Sex Assigned at Not on file Legal Sex Male 10:25 AM CDT Gender Identity Not on file Sexual Orientation Not on file Last Filed Vital Signs Vital Sign Reading Time Taken Comments Blood Pressure 171/79 03/22/2023 10:00 AM CDT Pulse 71 03/22/2023 9:58 AM CDT Temperature 36.1 C (97 F) 03/22/2023 9:58 AM CDT Respiratory Rate 10 03/22/2023 9:58 AM CDT Oxygen Saturation 96% 03/22/2023 9:58 AM CDT Inhaled Oxygen Concentration - - Weight 152 kg (335 lb) 03/22/2023 9:58 AM CDT Height 185.4 cm (6' 1 ) 02/22/2023 8:45 AM CDT Body Mass Index 44.2 02/22/2023 8:45 AM CDT Plan of Treatment Health Maintenance Due Date Last Done Comments DTAP/TDAP/TD VACCINES (1 - Tdap) 1980 COLORECTAL SCREENING 2006 Colorectal Cancer Screening 2006 FIT-DNA Q 3 years 2006 FIT/FOBT Q 1 year 2006 Flex Sig/CT Colonography Q 5 years 2006 ZOSTER VACCINE (1 of 2) 2011 INFLUENZA VACCINE (#1) 2024 RSV VACCINE (60+ or ) (1 - 1-dose 75+ series) 2036 PNEUMOCOCCAL VACCINE 0-49 YEARS Aged Out No longer eligible based on patient's age to complete this topic Insurance [facility] MEDICAID Care Teams Bacteriology Teacher Relationship Specialty Start Date End Date Flo Russell MD [address] [place] [phone] PCP - General Family Practice 02/22/23
--- OUTSIDE RECORDS SUMMARY | 2025-01-15 13:07 | XMS_ITS | Clinical Summary ---
Author Organization [facility] Address [address] [place] [address] Phone Care Team Providers Care Harbor Engineer Name Role Phone Flo Russell MD Primary Care Provider [phone] Social History Tobacco Use Types Packs/Day Years Used Date Smoking Tobacco: Never Assessed Sex and Gender Information Value Date Recorded Sex Assigned at Not on file Legal Sex Male 11:21 AM CDT Gender Identity Not on file Sexual Orientation Not on file Plan of Treatment Health Maintenance Due Date Last Done Comments Hepatitis C Virus (HCV) Screening 1961 TdaP Immunization 1961 Colonoscopy 2006 Colorectal Cancer Screening 2006 Cologuard 2011 Immunochemical Fecal Occult Blood 2011 Pneumococcal Immunization (5 0+ years) (1 of 1 - PCV) 2011 Zoster Immunization (1 of 2) 2011 PSA Discussion 2016 Influenza Immunization (#1) 2024 SARS-COV-2 Immunization ( - season) 2024 Respiratory Syncytial Virus (RSV) Immunization (Adult) (1 - 1-dose 75+ series) 2036 Hepatitis B Immunization Aged Out No longer eligible based on patient's age to complete this topic Meningococcal Immunization (ACWY) Aged Out No longer eligible based on patient's age to complete this topic Pneumococcal Immunization Combined Aged Out No longer eligible based on patient's age to complete this topic Rotavirus Immunization Aged Out No lo nger eligible based on patient's age to complete this topic Insurance MEDICAID [employer] Care Teams Harbor Engineer Relationship Specialty Start Date End Date Flo Russell MD [address] [place] [address] PCP - General Family Medicine 01/24/18
--- OUTSIDE RECORDS SUMMARY | 2025-01-15 13:07 | XMS_ITS | Data Portability ---
Author Organization [facility], Main Office Address [address] [place] [address] Assessment No assessment recorded. Plan of Treatment Reminders Order Date Submit Date Provider Last Modified By Organization Details Last Modified Time Details Appointments None recorded. Lab urinalysis, dipstick 2022 023 [email or web address] [facility] [place], [address] [place] [address], [address], [address], 3 16:16:43 PSA, total, serum or plasma 2022 023 [facility] (Lab), [address] [place] [address], [address], 3 05:01:27 urinalysis, dipstick 2022 023 9 [facility] [place], [address] [place] [address], [address], [address], 3 11:37:25 urinalysis, microscopic 2022 023 [facility] (Lab), [address] [place] [address], [address], 3 05:01:27 Referral None recorded. Procedures None recorded. Surgeries None recorded. Imaging US, bladder 2022 023 [email or web address] [facility] [place], [address] [place] [address], [address], [address], 3 11:39:55 CT, urogram 2022 0508 023 [facility], [address], [place], [address], 3 16:01:09 Medication Orders None recorded. Patient TargetsNo targets recorded. Patient InstructionsNo instructions recorded. Reason for Referral None Reported. Results Created Date Observation Date Name Description Value Unit Range Abnormal Flag Note LastModifiedBy Organization Detail LastModifiedTime 03/15/2003/15/2023 urina lysis , dipst ick Leukocytes (reference range: negative ivet/ l) Negati ve Not Available [address], [address], [address], 03/15/2023 11:19:32 03/15/20 23 03/15/2023 urina lysis , dipst ick Nitrite (reference rage: negative mg/dl) negati ve Not Available [address], [address], [address], 03/15/2023 11:19:32 03/15/2003/15/2023 urina lysis , dipst ick Urobilinogen (reference range: 0.2-1 mg/dl) 1 Not Available [address], [address], [address], 03/15/2023 11:19:32 03/15/20 23 03/15/2023 urina lysis , dipst ick Protein (reference range: negative mg/dl) Modera te Not Available [address], [address], [address], 03/15/2023 11:19:32 03/15/20 23 03/15/2023 urina lysis , dipst ick pH (reference range: 5-7) 6.5 Not Available [address] [address], [place], [address], 03/15/2023 11:19:32 03/15/20 23 03/15/2023 urina lysis , dipst ick Blood (reference range: negative Victor M/ l) Large Not Available [address], [address], 03/15/2023 11:19:32 03/15/20 23 03/15/2023 urina lysis , dipst ick Specific [place] (reference range: 1.005-1.030) 1.020 Not Available [address] [address], [place], [address], 03/15/2023 11:19:32 03/15/20 23 03/15/2023 urina lysis , dipst ick Ketone (reference range: negative mg/dl) Negati ve Not Available [address], [address], 03/15/2023 11:19:32 03/15/20 23 03/15/2023 urina lysis , dipst ick Bilirubin (reference range: negative mg/dl) Negati ve Not Available [address] [address], [place], [address], 03/15/2023 11:19:32 03/15/20 23 03/15/2023 urina lysis , dipst ick Glucose (reference range: negative mg/dl) Negati ve Not Available [address], [address], 03/15/2023 11:19:32 05/0803/15/2023 urina lysis , dipst ick Appearance Clear Not Available [address], [address], 03/15/2023 11:19:32 03/15/20 23 03/15/2023 urina lysis , dipst ick Color Yellow Not Available [address], [address], 03/15/2023 11:19:32 04/26/20 23 04/26/2023 urina lysis , dipst ick Leukocytes (reference range: negative ivet/ l) Negati ve Not Available [address], [address], 04/26/2023 15:38:34 04/26/20 23 04/26/2023 urina lysis , dipst ick Nitrite (reference rage: negative mg/dl) negati ve Not Available [address], [address], 04/26/2023 15:38:34 04/26/20 23 04/26/2023 urina lysis , dipst ick Urobilinogen (reference range: 0.2-1 mg/dl) 1 Not Available [address], [address], 04/26/2023 15:38:34 04/26/20 23 04/26/2023 urina lysis , dipst ick Protein (reference range: negative mg/dl) Small Not Available [address], [address], [address], 04/26/2023 15:38:34 04/26/20 23 04/26/2023 urina lysis , dipst ick pH (reference range: 5-7) 7.0 Not Available [address], [address], 04/26/2023 15:38:34 04/26/20 23 04/26/2023 urina lysis , dipst ick Blood (reference range: negative Victor M/ l) Modera te Not Available [address] [address], [place], [address], 04/26/2023 15:38:34 04/26/20 23 04/26/2023 urina lysis , dipst ick Specific [place] (reference range: 1.005-1.030) 1.015 Not Available [address], [address], 04/26/2023 15:38:34 04/26/20 23 04/26/2023 urina lysis , dipst ick Ketone (reference range: negative mg/dl) Negati ve Not Available [address], [address], 04/26/2023 15:38:34 04/26/20 23 04/26/2023 urina lysis , dipst ick Bilirubin (reference range: negative mg/dl) Negati ve Not Available [address], [address], 04/26/2023 15:38:34 04/26/20 23 04/26/2023 urina lysis , dipst ick Glucose (reference range: negative mg/dl) Negati ve Not Available [address], [address], 04/26/2023 15:38:34 04/26/20 23 04/26/2023 urina lysis , dipst ick Appearance Clear Not Available [facility] [place] [address] [place] [address], [address], [place], [address], 04/26/2023 15:38:34 04/26/20 23 04/26/2023 urina lysis , dipst ick Color Yellow Not Available [facility] [address] [place] [address], [address], [place], [address], 04/26/2023 15:38:34 03/15/20 23 03/15/2023 US, bladd er No observ ation record ed. [facility] [address] [place] [address], [address], [place], [address], 03/15/2023 14:59:38 04/26/20 23 04/02/2023 CT, urogr am No observ ation record ed. [email or web address] [facility] [address], [place], [address], 04/26/2023 16:01:14 Result Notes None recorded. Problems Name Problem SNOMED Code Status Onset Date Resolution Date Notes Provider Name and Address Organization Details Recorded Time Microscopic hematuria 707028161 Active 2022 Jaron Rahman NP [address] [facility] [address], [place], [address], [employer] [facility] [employer] 3 11:36:05 Lower urinary tract symptoms 812779053 Active 2022 Jaron Rahman NP [address], [place], [address], [facility] [employer] 3 12:02:02 Problem Notes None recorded. Procedures Surgical History Date Name Laterality Status Provider Name and Address Organization Details Recorded Time 3 Cystoscopy (male) completed Doni Miguel MD [address], [place], [address], [place] [facility] 04/26/2023 16:15:38 Vasectomy completed DARIN Stanley [facility] 03/15/2023 10:57:36 leg repair completed Guillermina Vega MA [facility] 03/15/2023 10:57:48 Imaging Results Imaging Date Name Status LastModified by Organiz ation Details LastModified Time 03/15/2023 US, bladder completed [email or web address] [facility] [place] [address] [facility], [address], [place], [address], 03/15/2023 14:59:38 04/02/2023 CT, urogram completed [address] [facility] [address], [place], [address], 04/26/2023 16:01:14 Procedure Notes None recorded. Medical Equipment None Reported. Allergies Allergen ID Allergen Name Allergen Category Reaction Reaction Severity Criticality Documentation Date Start Date Code Code System Note Provider Name and Address Organization Details Recorded Time 42700 oxycodone medicatio n Not available Not available Not available 03/15/2023 7804 RxNorm DARIN Stanley, [facility] 3 10:54:44 79148 orange juice food,medi cation Not available Not available Not available 11/09/2024 35039 66 RxNorm NINA Jasmine, [facility] 5 09:15:41 15464 tomato allergeni c extract food Not available Not available Not available 11/09/2024 47963 9 RxNorm NINA Jasmine [facility] 5 09:15:54 Medications Name Sig Start Date Stop Date Status Note LastModified by Organization Details LastModified Time losartan 50 mg tablet TAKE 1 TABLET BY MOUTH EVERY DAY active Not Available Not Available No t Available potassium chloride ER 10 mEq capsule,ext ended release Take 1 capsule every day by oral route. active Not Available Not Available No t Available potassium chloride ER 10 mEq tablet,exte nded release TAKE 1 TABLET BY MOUTH TWICE DAILY WHEN TAKING FUROSEMID E active Not Available Not Available No t Available sulfamethox azole 800 mg-trimetho prim 160 mg tablet TAKE 1 TABLET BY MOUTH EVERY 12 HOURS 03/15 completed Not Available Not Available Not Available doxycycline monohydrate 100 mg capsule TAKE 1 CAPSULE BY MOUTH TWICE A DAY FOR 14 DAYS active Not Available Not Available No t Available cephalexin 500 mg capsule TAKE 1 CAPSULE BY MOUTH EVERY 6 HOURS FOR 10 DAYS active Not Available Not Available No t Available Humulin R Regular U-100 Insulin 100 unit/mL injection solution INJECT 15 UNITS SUBCUTANE OUSLY 3 TIMES DAILY active Not Available Not Available No t Available furosemide 20 mg tablet Take 1 tablet every day by oral route. active Not Available Not Available No t Available methylpredn isolone 4 mg tablets in a dose pack TAKE 6 TABLETS ON DAY 1 DIRECTED ON PACKAGE AND DECREASE BY 1 TAB EACH DAY FOR A TOTAL OF 6 DAYS active Not Available Not Available No t Available albuterol sulfate HFA 90 mcg/actuati on aerosol inhaler INHALE 2 PUFFS EVERY 4 HOURS BY INHALATIO N ROUTE NEEDED active Not Available Not Available No t Available OneTouch Verio test strips USE TO CHECK BLOOD SUGAR 3 TIMES A DAY active Not Available Not Available No t Available TRUEplus Insulin 0.5 mL 31 gauge x 5/16 syringe USE TO INJECT INSULIN 4 TIMES DAILY active Not Available Not Available No t Available TRUEplus Insulin 1 mL 31 gauge x 5/16 syringe USE TO INJECT INSULIN 3 TIMES A DAY active Not Available Not Available No t Available Jardiance 10 mg tablet TAKE 1 TABLET BY MOUTH EVERY DAY active Not Available Not Available No t Available Basaglar KwikPen U-100 Insulin 100 unit/mL (3 mL) subcutaneou s INJECT UP TO 30 UNITS SUBCUTANE OUSLY DAILY *NEED APPOINTME NT FOR REFILLS* active Not Available Not Available No t Available TRUEplus Pen Needle 31 gauge x 5/16 USE TO CHECK BLOOD SUGAR 3 TIMES DAILY NEEDS TO KEEP APPOINTME NT FOR ADDITIONA L REFILLS active Not Available Not Available No t Available Vitals Date Recorded Body height Provider Name an d Address Organization Details Last Updated DateTime 03/15/2023 187.96 cm Guillermina Vega [place] [facility] [employer] 03/15/2023 10:54:21 Date Recorded Body mass index (BMI) Body weight Oxygen saturation Oxygen saturation in Arterial blood by Pulse oximetry Body temperature Heart rate Systolic blood pressure Diastolic blood pressure Provider Name and Address Organization Details Last Updated DateTime 3 42.9 kg/m2 924905. 85 g 96 % 96 % 98.2 [degF] 70 /min 173 mm[Hg] 93 mm[Hg] Dominick Grahamroe Sidney Roll20 [facility] 3 11:16:08 Date Recorded Body height Provider Name an d Address Organization Details Last Updated DateTime 04/26/2023 187.96 cm Dominick Jose REPLACED BY [facility] [employer] 04/26/2023 15:26:51 Date Recorded Heart rate Body temperature Body mass index (BMI) Body weight Oxygen saturation Oxygen saturation in Arterial blood by Pulse oximetry Systolic blood pressure Diastolic blood pressure Provider Name and Address Organization Details Last Updated DateTime 3 79 /min 99.1 [degF] 43.5 kg/m2 048506. 81 g 98 % 98 % 162 mm[Hg] 93 mm[Hg] Guillermina Vega MA [employer] 3 15:38:04 Social History Question Answer Notes LastModified by Organizat ion Details LastModified Time Tobacco Smoking Status Former Smoker Guillermina Vega MA [facility] [employer] 03/15/2023 10:57:23 What Is Your Level Of Alcohol Consumption? Occasional Information not available 03/15/2023 What Is Your Level Of Caffeine Consumption? Moderate Information not available 03/15/2023 When Did You Quit Smoking? 16+yearssincel flaco Information not available 03/15/2023 What Was The Date Of Your Most Recent Tobacco Screening? 04/26/2023 [email or web address] Information not available 04/26/2023 Have You Ever Been Counseled For Unhealthy Alcohol Use? No Information not available 03/15/2023 Do You Use Any Illicit Or Recreational Drugs? No Information not available 03/15/2023 Has Tobacco Cessation Counseling Been Provided? No Information not available 03/15/2023 How Many Years Have You Smoked Tobacco? 10 Information not available 03/15/2023 Do You Or Have You Ever Used Any Other Forms Of Tobacco Or Nicotine? No Information not available 03/15/2023 Sex: Unknown Functional Status None recorded. Mental Status None recorded. Family History Relationship Description Onset Age of this Age Resolved Age Notes LastModified by Organization Details LastModified Time Unspecified Relation Diabetes mellitus Not available 2022 10:56:04 Unspecified Relation Kidney stone Not available 06/2023 10:56:15 Brother Alcohol abuse [email or web address] Not available 2024 09:17:21 Mother Parkinson's disease [email or web address] Not available 2024 09:17:35 Mother Malignant lymphoma [email or web address] Not available 2024 09:17:57 Father Cerebrovascu lar accident [email or web address] Not available 12/2024 09:18:10 Medical History Condition Response CYSTITIS N BLINDNESS N RHEUMATIC FEVER N KIDNEY STONES N BLADDER PROBLEMS N Enlarged Prostate N MRSA N LUNG DISEASE/DISORDER N HISTORY OF DRUG ABUSE N RADIATION / CHEMOTHERAPY N COPD N BLOOD DISEASES N SHINGLES N BOWEL PROBLEMS N DEPRESSION (INCLUDING POST ) N FAILED BACK SYNDROME N STROKE/TIA N THYROID DISEASE N BENIGN PROSTATIC HYPERPLASIA N OBESITY N GERD/NAUSEA N ANEURYSM N URINARY/BLADDER/KIDNEY PROBLEMS N Increased Urination N CORONARY ARTERY DISEASE (CAD) N Do you have Advance directive? N USE OF BLOOD THINNERS N EMPHYSEMA N GASTROINTESTINAL DISORDER N GASTROINTESTINAL BLEEDING N BLOOD CLOTS N Difficulty Urinating N ASTHMA N Abdominal Pain N CATARACTS N ARTERIAL INSUFFICIENCY N ERECTILE DYSFUNCTION N GI PROBLEMS N Low Testosterone N AIDS/HIV N LIVER DISEASE N MALE HYPOGONADISM N HYPERTENSION N TOURETTE'S N BLOOD TRANSFUSION N ANEMIA/BLOOD DISORDER N TUBERCULOSIS N GLAUCOMA N SLEEP APNEA N BACK INJECTIONS N INFECTIOUS DISEASE N HEART ARRHYTHMIA N PROSTATE N INSOMNIA N ESRD N HIGH CHOLESTEROL / HYPERLIPIDEMIA N HYPERTHYROIDISM N UTI N PVD N EDEMA N HYPOTHYROIDISM N BACK / NECK PROBLEMS N HAVE YOU BEEN HOSPITALIZED OR SEEN IN [facility] IN THE PAST YEAR ? N DIALYSIS N POLYCYSTIC OVARIES N OSTEOPOROSIS N ARTHRITIS N NO SIGNIFICANT PAST MEDICAL HISTORY N DIABETES, TYPE Y VON WILLIBRAND'S DISEASE N PARKINSON N incontinence N POST LAMINECTOMY SYNDROME N HEPATITIS / LIVER DISEASE N GOUT N SLEEP DISORDER N ALZHEIMER'S DISEASE N HERPES N HEADACHES/MIGRAINES N SEIZURES/EPILEPSY N PACEMAKER N HEART MURMUR N DIZZINESS N KIDNEY DISEASE N HEART DISEASE/HEART PROBLEMS N MULTIPLE SCLEROSIS N NEUROPSYCHOLOGICAL N CANCER: SPECIFY N ANESTHESIA COMPLICATIONS N ATRIAL FIBRILLATION N AUTOIMMUNE DISEASE N Past Encounters Encounter ID Performer Location Encounter Start Date Encounter Closed Date Diagnosis/Indication Diagnosis SNOMED-CT Code Diagnosis ICD10 Code Diagnosis Note [id number] Jaron Rahman NP [facility] [address], [address] [address] 03/15/2023 10:47:45 03/15/2023 11:39:54 Microscopic hematuria 593173725 R31.29 We discussed possible etiologies of hematuria including infection, stones, cancer/mal ignancy, benign tumors, and certain anatomic abnormalit ies. Patient is high risk per AUA guidelines due to age. Will proceed with CTU for evaluation of the upper urinary tracts followed by cystoscopy for evaluation of the lower urinary tracts. Screening for malignant neoplasm of prostate 815152633 Z12.5 Check PSA. Lower urin brianna tract symptoms 879573042 R39.9 Reports some bothersome urinary symptoms. Will re-evaluat e after hematuria work-up for further work-up/ev aluation. [id number] Doni Miguel MD [facility] [address], [address] [address] 04/26/2023 15:21:29 04/26/2023 16:17:31 Microscopic hematuria 779433602 R31.[address] urogram and cysto except for known non gu problems, suggested push fluids and fu 6 month Health Concerns Section Related Observation LastModified by Organization Detai ls LastModified Time None Recorded Concern Status LastModified by Organization Details LastModified Time None Recorded Advance Directives Directive None Recorded Payers Encounter Date Sequence Insurance Name Policy Number Policy Stark Covered Member ID Tsark Member ID Guarantor Name 03/15/2023 1 [facility] ON OR AFTER 05/08/21 (MEDICAID REPLACEMENT - HMO) Blake Smith [id number] Blake Smith 04/26/2023 1 [facility] ON OR AFTER 05/08/21 (MEDICAID REPLACEMENT - HMO) Blake Smith [id number] Blake Smith Notes Date Note Type Note Provider Name and Address Organization Details Recorded Time 03/15/2023 text/html 03/15/2023edel ceron is here for evaluation of hematuria. Patient reports that he started having dark urine that he describes as brown in January. He was in the ER at [facility] a nail in his foot. During his work-up he had a UA that was negative for infection, but showed >100 rbc/hpf. He also had CT ap w/o which was negative. He endorses some urinary frequency and nocturia 4-5 x a night. Denies family hx of bladder or prostate cancer. -GROSS OR MICROSCOPIC: Micro-IMAGIN01/2023 CT ap w/o- no stones, masses, or swelling-CYSTOSCO PY: denies-CYTOLOGY: denies-PAINFUL or PAINLESS HEMATURIA: painless-DURATION : 01/2023-BLOOD THINNERS: Denies-SMOKING STATUS: Former. Quit 25+ years ago. Smoked 1/2 per day for about 10-12 years. UA- neg le, neg nit, large bloodPVR-66cc Jaron Rahman, KENNEL MANAGER [address] [facility] [address], [place], [address], [facility] [employer] 03/15/2023 12:02:59 04/26/2023 text/html 03/15/2023edel ceron is here for evaluation of hematuria. Patient reports that he started having dark urine that he describes as brown in January. He was in the ER at [facility] a nail in his foot. During his work-up he had a UA that was negative for infection, but showed >100 rbc/hpf. He also had CT ap w/o which was negative. He endorses some urinary frequency and nocturia 4-5 x a night. Denies family hx of bladder or prostate cancer. -GROSS OR MICROSCOPIC: Micro-IMAGIN01/2023 CT ap w/o- no stones, masses, or swelling-CYSTOSCO PY: denies-CYTOLOGY: denies-PAINFUL or PAINLESS HEMATURIA: painless-DURATION : 01/2023-BLOOD THINNERS: Denies-SMOKING STATUS: Former. Quit 25+ years ago. Smoked 1/2 per day for about 10-12 years. UA- neg le, neg nit, large bloodPVR-66cc04/26CT urogram showed cirrhosis , lesions in iliac bone both are known and under eval . Doni Miguel MD [address] [facility], [facility] [address], [place], [address], [facility] [employer] 04/26/2023 16:16:46
--- OUTSIDE RECORDS SUMMARY | 2025-01-15 13:07 | XMS_ITS | Clinical Summary ---
Author Organization [facility] [employer] Address [address] [place] [address] Care Team Providers Care Oyster Fisherman Name Role Phone Flo Russell MD Primary Care Provider [phone] Source Comments [facility] [employer],non-owned Affiliates and Associated Physician Practices is amultiple site organization consisting of ambulatory clinics and hospital sitesin [place], [place], [place] and [place]. This disclosure is being madepursuant to the Care Everywhere program and may not contain all information available regarding this patient. Last updated 18.[facility] [employer] Allergies Active Allergy Reactions Criticality Noted Date [...] 07/05/2019 12:10 PM CDT Plan of Treatment Health Maintenance Due Date Last Done Comments COLOGUARD (AGES 45-75) - COL ON CA SCREENING 1961 COLON MONITORING 1961 COLONOSCOPY - COLON CA SCREENING 1961 CT COLONOGRAPHY - COLON CA SCREENING 1961 Colorectal Cancer Screening 1961 FIT - COLON CA SCREENING 1961 FLEX SIG - COLON CA SCREENING 1961 LIPID TESTING 1961 HIV SCREENING 1976 HEPATITIS C SCREENING 03/22/1979 DTAP/TDAP/TD VACCINES (1 - Tdap) 1980 PNEUMOCOCCAL VACCINE 50+ (1 of 1 - PCV) 2011 ZOSTER VACCINE (1 of 2) 2011 SCREENING FOR DIABETES 05/04/2019 Respiratory Syncytial Virus (RSV) Vaccine Pt: or over 60 yrs (1 - Risk 60-74 years 1-dose series) 2021 COVID-19 VACCINE ( - 2023-2 5 season) 2024 INFLUENZA VACCINE (#1) 2024 DEPRESSION SCREENING 11/08/2024 HEPATITIS B VACCINE Aged Out No longe r eligible based on patient's age to complete this topic HIB VACCINE Aged Out No longer eligi ble based on patient's age to complete this topic HPV VACCINE Aged Out No longer eligi ble based on patient's age to complete this topic MENINGOCOCCAL (Group B) VACCINE Aged Out No longer eligible based on patient's age to complete this topic MENINGOCOCCAL VACCINE Aged Out No krunal karyn eligible based on patient's age to complete this topic PNEUMOCOCCAL VACCINE Aged Out No long er eligible based on patient's age to complete this topic Goals Goal Patient Goal Type Associated Problems Recent Progress Patient-Stated? Author Mobility General No Heike Aviles, RN Note: Expected end date: 11/08/2019 The goal is to maintain or improve your mobility at the optimum level for you. Interventions: Care Teams Oyster Fisherman Relationship Specialty Start Date End Date Flo Russell MD [address] [phone] PCP - General 05/04/19
[2025-01-15] MEDS: FUROSEMIDE INJ 100 MG/10 ML VIAL 80 MG IV PUSH ×2 (13:22→23:11)
[2025-01-15 13:57] LABS: Glucose Point of Care 120 mg/dl (65-105)
--- OUTSIDE RECORDS SUMMARY | 2025-01-15 14:21 | XMS_ITS | Clinical Summary ---
Author Organization [facility] Address [address] [place] [address] Phone Care Team Providers Care Shot Blast Equipment Operator Name Role Phone Flo Russell MD Primary Care Provider [phone] Social History Tobacco Use Types Packs/Day Years [...] Insurance MEDICAID [employer] Care Teams Shot Blast Equipment Operator Relationship Specialty Start Date End Date Flo Russell MD [address] [place] [address] PCP - General Family Medicine 01/24/18
--- OUTSIDE RECORDS SUMMARY | 2025-01-15 14:21 | XMS_ITS | Patient Health Summary ---
Author Organization [facility] Address [address] [place] [address] Care Team Providers Care Efficiency Miner Blasting Name Role Phone Flo Russell MD Primary Care Provider [phone] Note from [facility],non-owned Affiliates and Associated Physician Practices is amultiple site organization consisting of ambulatory clinics and hospital sitesin [place], [place], [place] and [place]. This disclosure is being madepursuant to the Care Everywhere program and may not contain all information available regarding this patient. Last updated 18.[facility] Allergies * Oxycodone(Itching) -Medium Criticality Medications * [...] 43.54 07/05/2019 12:10 PM CDT Procedures * AL DRAIN/INJECT LARGE JOINT/BURSA(Performed 01/22/2020) Performed for Chronic pain of right knee * AL DRAIN/INJECT LARGE JOINT/BURSA(Performed 12/07/2019) Performed for Primary [...] knee, Chronic pain of left knee * AL DRAIN/INJECT LARGE JOINT/BURSA(Performed 07/05/2019) Performed for Primary osteoarthritis of left knee * XR KNEE LEFT 4VW OR MORE(Performed 05/04/2019) Performed for Left knee pain, unspecified chronicity Results * AL DRAIN/INJECT LARGE JOINT/BURSA (01/22/2020 1:53 PM CDT) [...] III, MD PROCEDURE/MIN OR SURGICAL ORDERABLES * AL DRAIN/INJECT LARGE JOINT/BURSA (12/07/2019 5:18 PM NON FOOD RECEIVING CLERK) Narrative Ag Barbosa III, MD - 12/07/2019 5:18 PM NON FOOD RECEIVING CLERK Ag Barbosa III, MD 12/07/2019 5:19 PM [...] XR KNEE RIGHT 3VW (12/04/2019 12:54 PM NON FOOD RECEIVING CLERK) Anatomical Region Laterality Modality Lower Extremity Radiographic Jen ging 12/04/2019 2:06 PM NON FOOD RECEIVING CLERK Impressions 12/04/2019 2:08 PM NON FOOD RECEIVING CLERK IMPRESSION: Mild osteoarthritis. This report was electronically signed by GERARDO COHEN MD on 12/04/2019 2:08 PM . Narrative 12/04/2019 2:08 PM NON FOOD RECEIVING CLERK Exam: XR KNEE RIGHT 3VW History: [id number]: [...] CRYSTAL INDENTIFICATION SYNOVIAL FLUID (12/04/2019 12:45 PM NON FOOD RECEIVING CLERK) Crystal Exam Fluid No crystals seen. To be reviewed by pathologist. 12/04/2019 10:14 PM NON FOOD RECEIVING CLERK [facility] Fluid SYNOVIAL FLUID / Unknown Collection / Unknown 12/04/2019 12:45 PM NON FOOD RECEIVING CLERK 12/04/2019 6:36 PM NON FOOD RECEIVING CLERK Ag Barbosa III, MD LAB - BODY FL UID ORDERABLES Performing Organization Address [facility] Co de Phone Number [address] [phone] * PATHOLOGY SMEAR BODY FLUID (12/04/2019 12:45 PM NON FOOD RECEIVING CLERK) Pathology Diff Review DIFFERENTIAL REVIEW - CONFIRMED DIFFERENTIAL REVIEW - CONFIRMED 12/05/2019 2:11 PM NON FOOD RECEIVING CLERK [facility] Comment: The patient is a 59 y/o man who presents with left knee pain. Agreed with cell count and differential. No crystals seen. Clinical and microbiologic correlation is recommended. MD London Holden MD Fluid SYNOVIAL FLUID / Unknown Collection / Unknown 12/04/2019 12:45 PM NON FOOD RECEIVING CLERK 12/04/2019 6:36 PM NON FOOD RECEIVING CLERK Ag Barbosa III, MD LAB - PATHOLO GY/CYTOLOGY ORDERABLES Performing Organization Address [facility]/[place] [address], [facility] [phone] * DIFFERENTIAL MANUAL FLUID (12/04/2019 12:45 PM NON FOOD RECEIVING CLERK) Segs % Fluid 1 % 12/04/2019 9:31 PM [facility] Lymphocytes % Fluid 3 % 12/04/2019 9:31 PM NON FOOD RECEIVING CLERK [facility] Monocytes % Fluid 34 % 020 9:31 PM NON FOOD RECEIVING CLERK [facility] Macrophages % Fluid 10 % 12/04/2019 9:31 PM NON FOOD RECEIVING CLERK [facility] Mesothelials % Fluid 52 % 12/04/2019 9:31 PM [facility] Fluid SYNOVIAL FLUID / Unknown Collection / Unknown 12/04/2019 12:45 PM NON FOOD RECEIVING CLERK 12/04/2019 6:36 PM NON FOOD RECEIVING CLERK Narrative [facility] - 12/04/2019 9:31 PM NON FOOD RECEIVING CLERK Few clumps of mesothelial cells seen Ag Barbosa III, MD LAB - BODY FL UID ORDERABLES [facility] [address] [phone] * CULTURE FLUID+GRAM STAIN (12/04/2019 12:45 PM NON FOOD RECEIVING CLERK) Culture No growth CATRINA 12/12/2019 7:17 AM NON FOOD RECEIVING CLERK [facility] MICROBIOLOGY Gram Stain No organisms seen 020 7:17 AM NON FOOD RECEIVING CLERK [facility] MICROBIOLOGY Gram Stain Rare Polymorphonuclear cells 12/12/2019 7:17 AM [facility] MICROBIOLOGY Fluid SYNOVIAL FLUID / Unknown Collection / Unknown 12/04/2019 12:45 PM NON FOOD RECEIVING CLERK 12/04/2019 6:36 PM NON FOOD RECEIVING CLERK Ag Barbosa III, MD LAB - MICROBI OLOGY ORDERABLES [facility] MICROBIOLOGY [address] [phone] * (ABNORMAL) CELL COUNT W DIFF W CRYSTALS SYNOVIAL (12/04/2019 12:45 PM NON FOOD RECEIVING CLERK) Color Fluid Yellow(A) Colorles s, Straw 12/04/2019 7:24 PM [facility] Clarity Fluid Hazy(A) Clear 12/04/2019 7:24 PM [facility] Volume Fluid 2.0 mL 12/04/2019 7:24 PM [facility] Viscosity Decreased 12/04/2019 7:24 PM [facility] Crystal Exam Fluid Crystal examination to follow. 12/04/2019 7:24 PM [facility] WBC Calculation Fluid 243(H) 0 - 200 /uL 12/04/2019 7:24 PM [facility] RBC Calculation 112 /uL 0 7:24 PM [facility] Differential Manual Differential to follow. 12/04/2019 7:24 PM [facility] Fluid SYNOVIAL FLUID / Unknown Collection / Unknown 12/04/2019 12:45 PM NON FOOD RECEIVING CLERK 12/04/2019 6:36 PM NON FOOD RECEIVING CLERK Narrative [facility] - 12/04/2019 7:24 PM NON FOOD RECEIVING CLERK No reference ranges established for body fluid cell counts. The reference ranges provided are derived from published literature. The test results must be integrated into the clinical context for interpretation. Ag Barbosa III, MD LAB - BODY FL UID ORDERABLES [address] [phone] * MRI KNEE LEFT WO CONTRAST (08/26/2019 [...] popliteal cyst. Dictated by Mane Herrera MD (residential property consultant). I, Dr. GERARDO COHEN MD have personally [...] popliteal cyst. Dictated by Mane Herrera MD (residential property consultant). I, Dr. GERARDO COHEN MD have personally reviewed and interpreted this examination/study. This report was electronically signed by GERARDO COHEN MD on 08/28/2019 10:25 AM . Gay Obrien PA-C MR ORDERABLES * AL DRAIN/INJECT LARGE JOINT/BURSA (07/05/2019 1:05 PM CDT) [...] PA-C DIAGNOSTIC IMAG ING ORDERABLES Care Teams Efficiency Miner Blasting Relationship Specialty Start Date End Date Flo Russell MD [address] [place] [phone] PCP - General 05/04/19
--- OUTSIDE RECORDS SUMMARY | 2025-01-15 14:21 | XMS_ITS | Referral Summary ---
Author Organization [facility] Address [address] [place] [address] Care Team Providers Care Rock Crusher Name Role Phone Flo Russell MD Primary Care Provider [phone] Source Comments [facility],non-owned Affiliates and Associated Physician Practices is amultiple site organization consisting of ambulatory clinics and hospital sitesin [place], [place], [place] and [place]. This disclosure is being madepursuant to the Care Everywhere program and may not contain all information available regarding this patient. Last updated 18.[facility] Allergies Active Allergy Reactions Criticality Noted Date [...] Progress Patient-Stated? Author Mobility General No Heike vAiles RN Note: Expected end date: 11/08/2019 The goal is to maintain or improve your mobility at the optimum level for you. Interventions: Care Teams Rock Crusher Relationship Specialty Start Date End Date Flo Russell MD [address] [phone] PCP - General 05/04/19
--- OUTSIDE RECORDS SUMMARY | 2025-01-15 14:21 | XMS_ITS | Data Portability ---
Author Organization [facility] YUNIORMarybethtania Milligan Address [address] [place] [address] Care Team Providers Care Acute Care Surgeon Name Role Phone LUCINDA GROVERAN Primary Care Provider [phone] Assessment Encounter Date Assessment Date Assessment LastModified by Organization Details LastModified Time 12/22/2023 12/22/2023 Due to elevated blood pressure, losartan is now rx'd. [email or web address] Not available 12/27/2023 09:39:58 08/16/2024 08/16/2024 Pt was strongly encouraged to take medications already rx'd. Further treatment will depend on lab test results. Not available 08/22/2024 07:17:56 09/27/2024 09/27/2024 Workup will proceed as below. [email or web address] Not available 09/29/2024 13:42:12 11/07/2024 11/07/2024 Acute on chronic exacerbation of heart failure with preserved ejection fraction: Clinically appears volume overloaded. He has recently up titrated furosemide to 40 mg t.i.d.. We will continue monitoring. We will request a follow-up basic metabolic panel in 2 weeks' time. We reviewed medical therapy for heart failure with preserved ejection fraction. We reviewed side effect profile of SGLT2 inhibitors and after shared decision-making we will initiate empagliflozin 10 mg daily with a follow-up renal function as mentioned. He does have elevated creatinine with possibility of diabetic nephropathy and discuss long-term benefits of SGLT2 inhibitors. Based on his follow-up renal function he may also benefit with addition of angiotensin modulating agents. Morbid obesity : Here we reviewed diet/exercise for cardiovascular risk reduction. At follow-up visits we can consider addition of GLP 1 receptor agonist for weight management and cardiovascular risk reduction. Type 2 diabetes: He is managed on insulin per Dr. Grover's expertise. Thrombocytopenia: Due to his profound thrombocytopenia [place] [address], we will hold off on addition of aspirin or antiplatelet agent. We reviewed that performance of any further provocative or invasive cardiac procedures may be detrimental with increased risk of bleeding at this juncture. He plans to follow-up closely with his PCP to consider Hematology evaluation for management of thrombocytopenia. We will request a close Cardiology follow-up in 2 weeks' time with labs prior for ongoing volume management and titration of medical therapy for his diastolic heart failure. We appreciate the opportunity to participate in the care of your patient. [email or web address] Not available 11/07/2024 13:31:06 11/22/2024 11/22/2024 Guillermo Smith is a 64 yr old male with a PMH of CHF who presents today for a follow-up appointment. 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 His BP has been elevated his last three visits but he has expressed hesitance to add more medications. His last CBC on 09/27/24 showed an abnormal Hgb of 10.0 and a low platelet count of 60. He is unable to schedule a colonoscopy to rule out bleeding until his platelet count is increased. Not available 11/22/2024 15:42:45 Plan of Treatment Reminders Order Date Submit Date Provider Last Modified By Organization Details Last Modified Time Details Appointments None recorded. Lab HbA1c (hemoglobin A1c), blood 2024 025 [facility], [address] [facility], [facility], [place], [address], 5 07:16:20 CBC w/ auto diff 2024 025 [facility], [address] [facility], [facility], [place], [address], 5 09:13:11 CMP, serum or plasma 2024 025 [facility], [address] [facility], [facility], [place], [address], 5 09:13:09 BMP, serum or plasma 2023 025 [facility], [address], [place], [address], 5 08:26:44 CBC w/ auto diff 2023 024 [facility], [address], [place], [address], 4 06:22:26 iron + total iron-bindin g capacity (TIBC), serum 2023 024 [facility], [address], [place], [address], 4 10:14:50 CMP, serum or plasma 2023 024 [facility], [address], [place], [address], 4 06:22:24 BNP (B-type natriuretic peptide), serum or plasma 2023 024 [facility], [address], [place], [address], 4 10:14:49 HbA1c (hemoglobin A1c), blood 2023 024 [email or web address] In-Office Order, Internal Use Only DO Not Attach Compendium DO Not Attach Compendium, Do Not Delete/merge, [id number] 4 17:15:06 TSH, ultra-sensi tive, serum 2023 024 [facility], [address], [place], [address], 4 09:13:39 CBC w/ auto diff 2023 024 [facility], [address], [place], [address], 4 09:13:36 CMP, serum or plasma 2023 024 [facility], [address], [place], [address], 4 09:13:35 BNP (B-type natriuretic peptide), serum or plasma 2023 024 [facility], [address], [place], [address], 4 08:25:32 BNP (B-type natriuretic peptide), serum or plasma 2023 024 [facility], [address], [place], [address], 4 13:11:11 CMP, serum or plasma 2023 024 [facility], [address], [place], [address], 4 06:17:42 lipid panel, serum 2023 024 [facility], [address], [place], [address], 4 06:17:42 HbA1c (hemoglobin A1c), blood 2023 024 [facility], [address], [place], [address], 4 10:13:54 CBC w/ auto diff 2023 024 [facility], [address], [place], [address], 4 06:17:43 TSH, ultra-sensi tive, serum 2023 024 [facility], [address], [place], [address], 4 10:13:55 noninvasive colorectal cancer DNA + occult blood screening, QL, stool 2023 [facility] (Cologuard Orders Only), [address], [address], [place], [address], 5 10:00:20 Referral None recorded. Procedures None recorded. Surgeries None recorded. Imaging XR, chest, 2 view 2023 [facility], [address] [facility], [place], [address], 4 12:58:34 US, echocardiog tevin 2023 024 [facility] (Cardiology & [facility]), [address] [facility] [address], [place], [address], 4 11:20:30 Medication Orders carvedilol 3.125 mg tablet 2024 025 [facility]/Pharmacy #3259, [address] [place], [address], 5 15:56:05 Jardiance 10 mg tablet 2023 024 [email or web address] [facility]/Pharmacy #3259, [address] [place], [address], 4 13:22:20 Basaglar KwikPen U-100 Insulin 100 unit/mL (3 mL) subcutaneou s 2023 024 [facility]/Pharmacy #3259, [address] [place], [address], 4 14:47:04 Jardiance 25 mg tablet 2023 024 [facility]/Pharmacy #3259, [address] [place], [address], 4 10:15:05 carvedilol 3.125 mg tablet 2023 024 [facility]armacy #3259, [address] [place], [address], 4 10:14:56 furosemide 20 mg tablet 2023 024 INT-[id number] [facility]/Pharmacy #3259, [address] [place], [address], 5 18:43:53 potassium chloride ER 10 mEq tablet,exte nded release 2023 024 INT-2150 [id number] [facility]/Pharmacy #3259, [address] [place], [address], 5 18:43:53 losartan 50 mg tablet 2023 024 [facility]/Pharmacy #3259, [address] [place], [address], 4 15:16:03 Patient TargetsNo targets recorded. Patient Instructions Encounter Date Encounter Id Patient Instructions Last Modified By Organization Details Last Modified Time 12/22/2023 [id number] leg and ankle edema: care instructions Not available 12/22/2023 15:32:47 learning about type 2 diabetes [email or web address] Not available 12/22/2023 15:32:46 type 2 diabetes: care instructions Not available 12/22/2023 15:32:46 learning about high blood pressure [email or web address] Not available 12/22/2023 15:41:49 charcot foot: care instructions [email or web address] Not available 12/27/2023 09:40:19 08/16/2024 [id number] learning about type 2 diabetes [email or web address] Not available 08/16/2024 17:15:06 type 2 diabetes: care instructions [email or web address] Not available 08/16/2024 17:15:06 tetanus and diphtheria booster: care instructions Not available 08/17/2024 14:59:29 A healthy lifestyle: care instructions Not available 08/17/2024 14:59:29 anemia: care instructions [email or web address] Not available 08/16/2024 15:23:51 HIV testing: car e instructions [email or web address] Not available 08/17/2024 14:59:29 09/27/2024 [id number] chronic cough: care instructions [email or web address] Not available 09/27/2024 15:02:48 anemia: care instructions [email or web address] Not available 09/27/2024 14:48:25 heart failure: care instructions Not available 09/27/2024 14:55:23 learning about heart failure [email or web address] Not available 09/27/2024 14:55:23 11/07/2024 [id number] 1. Start Jardiance 10 mg once a day 2. Labs in 10 days 3. Follow up in 2 weeks [email or web address] Not available 11/07/2024 10:40:55 11/22/2024 [id number] learning about type 2 diabetes [email or web address] Not available 11/22/2024 15:52:12 type 2 diabetes: care instructions [email or web address] Not available 11/22/2024 15:52:12 anemia: care instructions [email or web address] Not available 11/22/2024 15:55:24 thrombocytopenia : care instructions [email or web address] Not available 11/22/2024 15:52:12 high blood pressure: care instructions [email or web address] Not available 11/22/2024 15:56:03 learning about high blood pressure [email or web address] Not available 11/22/2024 15:56:03 heart failure: care instructions Not available 11/22/2024 15:56:03 learning about heart failure [email or web address] Not available 11/22/2024 15:56:03 Reason for Referral None Reported. Results Created Date Observation Date Name Description Value Unit Range Abnormal Flag Note LastModifiedBy Organization Detail LastModifiedTime 12/21/1912/21/2024 COLOG UARD cologuard result Cancel led - Order d not applic able Not Available [facility] (Cologuard Orders Only) [address], [place], [address], 12/21/2024 10:00:20 12/22/19 24 12/22/2023 SLIDE REVIE W slide review Commen t Plate let Morph ology Comme nt Sylvester l N RBC Morph ology Comme nt SYLVESTER L SYLVESTER L N Poiki locyt osis NOT ESTB. N Plate let count verif ied by slide revie w. Not Available [facility] [address] [place] [address], [address], 12/23/2023 06:17:41 12/22/19 24 12/22/2023 LIPID PANEL cholesterol, total 147 mg/dL 100-19 9 Not Available [facility] [address] [place], [address], 12/23/2023 06:17:41 12/22/19 24 12/22/2023 LIPID PANEL triglyceride s 61 mg/dL 0-149 Not Available [facility] [address] [place], [address], 12/23/2023 06:17:41 12/22/19 24 12/22/2023 LIPID PANEL HDL cholesterol 61 mg/dL 40-999 Not Available [facility] Department [address] [place], [address], 12/23/2023 06:17:41 12/22/19 24 12/22/2023 LIPID PANEL VLDL cholesterol paulette 12 mg/dL 5-40 Not Available [facility] [address] [place], [address], 12/23/2023 06:17:41 12/22/19 24 12/22/2023 LIPID PANEL LDL chol calc ([facility]) 82 mg/dL 0-99 Not Available [facility] Department [address] [place], [address], 12/23/2023 06:17:41 12/22/19 24 12/22/2023 COMP. METAB OLIC PANEL (14) glucose 64 mg/dL 70-99 below low normal Not Available [facility] [address] [place], [address], 12/23/2023 06:17:42 12/22/19 24 12/22/2023 COMP. METAB OLIC PANEL (14) BUN 28 mg/dL 8-27 above high normal Not Available [facility] [address] [place], [address], 12/23/2023 06:17:42 12/22/19 24 12/22/2023 COMP. METAB OLIC PANEL (14) creatinine 1.43 mg/dL 0.76-1 .27 above high normal Not Available [facility] [address] [place], [address], 12/23/2023 06:17:42 12/22/19 24 12/22/2023 COMP. METAB OLIC PANEL (14) eGFR 55 >=60 below low normal Units for eGFR value s are mL/mi n/1.7 3 The eGFR Calcu latio n has not been valid ated for patie nts under the age of 18. If test resul ts are displ ayed for a patie nt under the age of 18, disre lilia that value . Not Available [facility] [address] [place], [address], 12/23/2023 06:17:42 12/22/19 24 12/22/2023 COMP. METAB OLIC PANEL (14) BUN/creatini ne ratio 19 10-24 Not Available [facility] [address] [place], [address], 12/23/2023 06:17:42 12/22/19 24 12/22/2023 COMP. METAB OLIC PANEL (14) sodium 140 mmol/ L 134-14 4 Not Available [facility] [address] [place], [address], 12/23/2023 06:17:42 12/22/19 24 12/22/2023 COMP. METAB OLIC PANEL (14) potassium 4.4 mmol/ L 3.5-5. 2 Not Available [facility] [address] [place], [address], 12/23/2023 06:17:42 12/22/19 24 12/22/2023 COMP. METAB OLIC PANEL (14) chloride 108 mmol/ L 96-106 above high normal Not Available [facility] [address] [place], [address], 12/23/2023 06:17:42 12/22/19 24 12/22/2023 COMP. METAB OLIC PANEL (14) carbon dioxide, total 24 mmol/ L 20-29 Not Available [facility] [address] [place], [address], 12/23/2023 06:17:42 12/22/19 24 12/22/2023 COMP. METAB OLIC PANEL (14) calcium 8.9 mg/dL 8.6-10 .2 Not Available [facility] [address] [place], [address], 12/23/2023 06:17:42 12/22/19 24 12/22/2023 COMP. METAB OLIC PANEL (14) protein, total 7.5 g/dL 6.0-8. 5 Not Available [facility] [address] [place], [address], 12/23/2023 06:17:42 12/22/19 24 12/22/2023 COMP. METAB OLIC PANEL (14) albumin 3.5 g/dL 3.9-4. 9 below low normal Not Available [facility] [address] [place], [address], 12/23/2023 06:17:42 12/22/19 24 12/22/2023 COMP. METAB OLIC PANEL (14) globulin, total 4.0 g/dL 1.5-4. 5 Not Available [facility] [address] [place], [address], 12/23/2023 06:17:42 12/22/19 24 12/22/2023 COMP. METAB OLIC PANEL (14) A/G ratio 1.0 1.2-2. 2 below low normal Not Available [facility] [address] [place], [address], 12/23/2023 06:17:42 12/22/19 24 12/22/2023 COMP. METAB OLIC PANEL (14) bilirubin, total 1.0 mg/dL 0.0-1. 2 Not Available [facility] [address] [place] [address], [address], 12/23/2023 06:17:42 12/22/19 24 12/22/2023 COMP. METAB OLIC PANEL (14) alkaline phosphatase 119 IU/L 44-121 Not Available [facility] [address] [place], [address], 12/23/2023 06:17:42 12/22/19 24 12/22/2023 COMP. METAB OLIC PANEL (14) AST (SGOT) 42 IU/L 0-40 above high normal Not Available [facility] [address] [place], [address], 12/23/2023 06:17:42 12/22/19 24 12/22/2023 COMP. METAB OLIC PANEL (14) ALT (SGPT) 20 IU/L 0-44 Not Available [facility] Department [address] [place] [address], [address], 12/23/2023 06:17:42 12/22/19 24 12/22/2023 CBC WITH DIFFE RENTI AL/PL ATELE T WBC 7.7 x10e3 /uL 3.4-10 .8 Not Available [facility] [address] [place], [address], 12/23/2023 06:17:43 12/22/19 24 12/22/2023 CBC WITH DIFFE RENTI AL/PL ATELE T RBC 3.26 x10e6 /uL 4.14-5 .80 below low normal Not Available [facility] [address] [place], [address], 12/23/2023 06:17:43 12/22/19 24 12/22/2023 CBC WITH DIFFE RENTI AL/PL ATELE T hemoglobin 10.6 g/dL 13.0-1 7.7 below low normal Not Available [facility] [address] [place], [address], 12/23/2023 06:17:43 12/22/19 24 12/22/2023 CBC WITH DIFFE RENTI AL/PL ATELE T hematocrit 32.0 % 37.5-5 1.0 below low normal Not Available [facility] [address] [place], [address], 12/23/2023 06:17:43 12/22/19 24 12/22/2023 CBC WITH DIFFE RENTI AL/PL ATELE T MCV 98 fL 79-97 above high normal Not Available [facility] [address] [place], [address], 12/23/2023 06:17:43 12/22/19 24 12/22/2023 CBC WITH DIFFE RENTI AL/PL ATELE T MCH 32.5 pg 26.6-3 3.0 Not Available [facility] [address] [place], [address], 12/23/2023 06:17:43 12/22/19 24 12/22/2023 CBC WITH DIFFE RENTI AL/PL ATELE T MCHC 33.1 g/dL 31.5-3 5.7 Not Available [facility] [address] [place], [address], 12/23/2023 06:17:43 12/22/19 24 12/22/2023 CBC WITH DIFFE RENTI AL/PL ATELE T RDW 13.1 % 11.5-1 4.5 Not Available [facility] [address] [place], [address], 12/23/2023 06:17:43 12/22/19 24 12/22/2023 CBC WITH DIFFE RENTI AL/PL ATELE T platelets 75 x10e3 /uL 150-45 0 below low normal Not Available [facility] [address] [place], [address], 12/23/2023 06:17:43 12/22/19 24 12/22/2023 CBC WITH DIFFE RENTI AL/PL ATELE T neutrophils 59 % notest b. Not Available [facility] [address] [place], [address], 12/23/2023 06:17:43 12/22/19 24 12/22/2023 CBC WITH DIFFE RENTI AL/PL ATELE T lymphs 29 % notest b. Not Available [facility] [address] [place], [address], 12/23/2023 06:17:43 12/22/19 24 12/22/2023 CBC WITH DIFFE RENTI AL/PL ATELE T monocytes 8 % notest b. Not Available [facility] [address] [place], [address], 12/23/2023 06:17:43 12/22/19 24 12/22/2023 CBC WITH DIFFE RENTI AL/PL ATELE T eos 4 % notest b. Not Available [facility] [address] [place], [address], 12/23/2023 06:17:43 12/22/19 24 12/22/2023 CBC WITH DIFFE RENTI AL/PL ATELE T basos 0 % notest b. Not Available [facility] [address] [place], [address], 12/23/2023 06:17:43 12/22/19 24 12/22/2023 CBC WITH DIFFE RENTI AL/PL ATELE T neutrophils (absolute) 4.5 x10e3 /uL 1.4-7. 0 Not Available [facility] [address] [place], [address], 12/23/2023 06:17:43 12/22/19 24 12/22/2023 CBC WITH DIFFE RENTI AL/PL ATELE T lymphs (absolute) 2.2 x10e3 /uL 0.7-3. 1 Not Available [facility] [address] [place], [address], 12/23/2023 06:17:43 12/22/19 24 12/22/2023 CBC WITH DIFFE RENTI AL/PL ATELE T monocytes(ab solute) 0.6 x10e3 /uL 0.1-0. 9 Not Available [facility] [address] [place], [address], 12/23/2023 06:17:43 12/22/19 24 12/22/2023 CBC WITH DIFFE RENTI AL/PL ATELE T eos (absolute) 0.3 x10e3 /uL 0.0-0. 4 Not Available [facility] [address] [place], [address], 12/23/2023 06:17:43 12/22/19 24 12/22/2023 CBC WITH DIFFE RENTI AL/PL ATELE T baso (absolute) 0.0 x10e3 /uL 0.0-0. 2 Not Available [facility] [address] [place], [address], 12/23/2023 06:17:43 12/22/19 24 12/22/2023 CBC WITH DIFFE RENTI AL/PL ATELE T immature granulocytes 0.8 % notest b. Not Available [facility] [address] [place], [address], 12/23/2023 06:17:43 12/22/19 24 12/22/2023 CBC WITH DIFFE RENTI AL/PL ATELE T immature grans (abs) 0.1 x10e3 /uL 0.0-0. 1 Not Available [facility] [address] [place], [address], 12/23/2023 06:17:43 12/22/19 24 12/22/2023 CBC WITH DIFFE RENTI AL/PL ATELE T NRBC 0 % 0-0 Not Available [facility] [address] [facility], [place], [address], 12/23/2023 06:17:43 12/22/19 24 12/23/2023 HEMOG LOBIN A1C hemoglobin A1C 7.3 % 4.8-5. 6 above high normal Predi abete s: 5.7 - 6.4 Diabe chetan: >6.4 Glyce neli contr ol for adult s with diabe chetan: <7.0 Not Available [facility] ([facility]) [address] [place], [address], 12/23/2023 10:13:54 12/22/19 24 12/23/2023 TSH TSH 2.780 uIU/m L 0.450- 4.500 Not Available [facility] ([facility]) [address] [place], [address], 12/23/2023 10:13:55 12/22/19 24 12/23/2023 B-TYP E NATRI URETI C PEPTI DE B-type natriuretic peptide 79.5 pg/mL 0.0-10 0.0 Sieme ns ADVIA Cent[facility] XP metho dolog y Not Available [facility] ([facility]) [address] [place], [address], 12/23/2023 13:11:11 08/16/20 24 08/17/2024 B-TYP E NATRI URETI C PEPTI DE B-type natriuretic peptide 337.0 pg/mL 0.0-10 0.0 above high normal Sieme ns ADVIA [facility] XP metho dolog y Not Available [facility] ([facility]) [address] [facility] [place], [address], 08/17/2024 08:25:32 08/16/20 24 08/17/2024 COMP. METAB OLIC PANEL (14) glucose 247 mg/dL 70-99 above high normal Not Available [facility] ([facility]) [address] [facility] [place], [address], 08/17/2024 09:13:35 08/16/20 24 08/17/2024 COMP. METAB OLIC PANEL (14) BUN 26 mg/dL 8-27 Not Available [facility] ([facility]) [address] [facility] [place], [address], 08/17/2024 09:13:35 08/16/20 24 08/17/2024 COMP. METAB OLIC PANEL (14) creatinine 1.49 mg/dL 0.76-1 .27 above high normal Not Available [facility] ([facility]) [address] [facility] [place], [address], 08/17/2024 09:13:35 08/16/20 24 08/17/2024 COMP. METAB OLIC PANEL (14) eGFR 52 mL/mi n/1.7 3 >59 below low normal Not Available [facility] ([facility]) [address] [facility] [place], [address], 08/17/2024 09:13:35 08/16/20 24 08/17/2024 COMP. METAB OLIC PANEL (14) BUN/creatini ne ratio 17 10-24 Not Available [facility] ([facility]) [address] [facility] [place], [address], 08/17/2024 09:13:35 08/16/20 24 08/17/2024 COMP. METAB OLIC PANEL (14) sodium 137 mmol/ L 134-14 4 Not Available [facility] ([facility]) [address] [facility] [place], [address], 08/17/2024 09:13:35 08/16/20 24 08/17/2024 COMP. METAB OLIC PANEL (14) potassium 4.5 mmol/ L 3.5-5. 2 Not Available [facility] ([facility]) [address] [facility] [place], [address], 08/17/2024 09:13:35 08/16/20 24 08/17/2024 COMP. METAB OLIC PANEL (14) chloride 105 mmol/ L 96-106 Not Available [facility] ([facility]) [address] [facility] [place], [address], 08/17/2024 09:13:35 08/16/20 24 08/17/2024 COMP. METAB OLIC PANEL (14) carbon dioxide, total 22 mmol/ L 20-29 Not Available [facility] ([facility]) [address] [facility] [place], [address], 08/17/2024 09:13:35 08/16/20 24 08/17/2024 COMP. METAB OLIC PANEL (14) calcium 8.8 mg/dL 8.6-10 .2 Not Available [facility] ([facility]) [address] [facility] [place], [address], 08/17/2024 09:13:35 08/16/20 24 08/17/2024 COMP. METAB OLIC PANEL (14) protein, total 7.0 g/dL 6.0-8. 5 Not Available [facility] ([facility]) [address] [facility] [place], [address], 08/17/2024 09:13:35 08/16/20 24 08/17/2024 COMP. METAB OLIC PANEL (14) albumin 3.2 g/dL 3.9-4. 9 below low normal Not Available [facility] ([facility]) [address] [facility] [place], [address], 08/17/2024 09:13:35 10/09/20 24 08/17/2024 COMP. METAB OLIC PANEL (14) globulin, total 3.8 g/dL 1.5-4. 5 Not Available [facility] ([facility]) [address] [facility], [place], [address], 08/17/2024 09:13:35 08/16/20 24 08/17/2024 COMP. METAB OLIC PANEL (14) bilirubin, total 0.9 mg/dL 0.0-1. 2 Not Available [facility] ([facility]) [address] [facility], [place], [address], 08/17/2024 09:13:35 08/16/20 24 08/17/2024 COMP. METAB OLIC PANEL (14) alkaline phosphatase 148 IU/L 44-121 above high normal Not Available [facility] ([facility]) [address] [facility], [place], [address], 08/17/2024 09:13:35 08/16/20 24 08/17/2024 COMP. METAB OLIC PANEL (14) AST (SGOT) 35 IU/L 0-40 Not Available [facility] ([facility]) [address] [facility], [place], [address], 08/17/2024 09:13:35 08/16/20 24 08/17/2024 COMP. METAB OLIC PANEL (14) ALT (SGPT) 17 IU/L 0-44 Not Available [facility] ([facility]) [address] [facility], [place], [address], 08/17/2024 09:13:35 08/16/20 24 08/17/2024 CBC WITH DIFFE RENTI AL/PL ATELE T WBC 5.4 x10e3 /uL 3.4-10 .8 Not Available [facility] ([facility]) [address] [facility], [place], [address], 08/17/2024 09:13:36 08/16/20 24 08/17/2024 CBC WITH DIFFE RENTI AL/PL ATELE T RBC 3.00 x10e6 /uL 4.14-5 .80 below low normal Polyc hroma hortencia prese nt Ovalo cytes prese nt. Not Available [facility] ([facility]) [address] [facility] [place], [place], [address], 08/17/2024 09:13:36 08/16/2008/17/2024 CBC WITH DIFFE RENTI AL/PL ATELE T hemoglobin 10.2 g/dL 13.0-1 7.7 below low normal Not Available [facility] ([facility]) [address] [place], [address], 08/17/2024 09:13:36 08/16/2008/17/2024 CBC WITH DIFFE RENTI AL/PL ATELE T hematocrit 30.3 % 37.5-5 1.0 below low normal Not Available [facility] ([facility]) [address] [facility] [place], [place], [address], 08/17/2024 09:13:36 08/16/2008/17/2024 CBC WITH DIFFE RENTI AL/PL ATELE T MCV 101 fL 79-97 above high normal Not Available [facility] ([facility]) [address] [place], [address], 08/17/2024 09:13:36 08/16/2008/17/2024 CBC WITH DIFFE RENTI AL/PL ATELE T MCH 34.0 pg 26.6-3 3.0 above high normal Not Available [facility] ([facility]) [address] [place], [address], 08/17/2024 09:13:36 08/16/2008/17/2024 CBC WITH DIFFE RENTI AL/PL ATELE T MCHC 33.7 g/dL 31.5-3 5.7 Not Available [facility] ([facility]) [address] [place], [address], 08/17/2024 09:13:36 08/16/20 24 08/17/2024 CBC WITH DIFFE RENTI AL/PL ATELE T RDW 12.2 % 11.6-1 5.4 Not Available [facility] ([facility]) [address] [facility] [place], [place], [address], 08/17/2024 09:13:36 08/16/2008/17/2024 CBC WITH DIFFE RENTI AL/PL ATELE T platelets 66 x10e3 /uL 150-45 0 alert low Plate let count verif ied by matilda bhatti of perip heral blood smear . Not Available [facility] ([facility]) [address] [facility] [place], [place], [address], 08/17/2024 09:13:36 08/16/20 24 08/17/2024 CBC WITH DIFFE RENTI AL/PL ATELE T neutrophils 69 % notest ab. Not Available [facility] ([facility]) [address] [facility] [place], [place], [address], 08/17/2024 09:13:36 08/16/20 24 08/17/2024 CBC WITH DIFFE RENTI AL/PL ATELE T lymphs 19 % notest ab. Not Available [facility] ([facility]) [address] [facility] [place], [place], [address], 08/17/2024 09:13:36 08/16/20 24 08/17/2024 CBC WITH DIFFE RENTI AL/PL ATELE T monocytes 9 % notest ab. Not Available [facility] ([facility]) [address] [facility] [place], [place], [address], 08/17/2024 09:13:36 08/16/20 24 08/17/2024 CBC WITH DIFFE RENTI AL/PL ATELE T eos 3 % notest ab. Not Available [facility] ([facility]) [address] [facility] [place], [place], [address], 08/17/2024 09:13:36 08/16/20 24 08/17/2024 CBC WITH DIFFE RENTI AL/PL ATELE T basos 0 % notest ab. Not Available [facility] ([facility]) [address] [facility] [place], [place], [address], 08/17/2024 09:13:36 08/16/20 24 08/17/2024 CBC WITH DIFFE RENTI AL/PL ATELE T neutrophils (absolute) 3.7 x10e3 /uL 1.4-7. 0 Not Available [facility] ([facility]) [address] [facility] [place], [place], [address], 08/17/2024 09:13:36 08/16/20 24 08/17/2024 CBC WITH DIFFE RENTI AL/PL ATELE T lymphs (absolute) 1.0 x10e3 /uL 0.7-3. 1 Not Available [facility] ([facility]) [address] [facility] [place], [place], [address], 08/17/2024 09:13:36 08/16/20 24 08/17/2024 CBC WITH DIFFE RENTI AL/PL ATELE T monocytes(ab solute) 0.5 x10e3 /uL 0.1-0. 9 Not Available [facility] ([facility]) [address] [facility] [place], [place], [address], 08/17/2024 09:13:36 08/16/20 24 08/17/2024 CBC WITH DIFFE RENTI AL/PL ATELE T eos (absolute) 0.2 x10e3 /uL 0.0-0. 4 Not Available [facility] ([facility]) [address] [facility] [place], [place], [address], 08/17/2024 09:13:36 08/16/20 24 08/17/2024 CBC WITH DIFFE RENTI AL/PL ATELE T baso (absolute) 0.0 x10e3 /uL 0.0-0. 2 Not Available [facility] ([facility]) [address] [facility] [place], [place], [address], 08/17/2024 09:13:36 08/16/20 24 08/17/2024 CBC WITH DIFFE RENTI AL/PL ATELE T immature granulocytes 0 % notest ab. Not Available [facility] ([facility]) [address] [facility] [place], [place], [address], 08/17/2024 09:13:36 08/16/20 24 08/17/2024 CBC WITH DIFFE RENTI AL/PL ATELE T immature grans (abs) 0.0 x10e3 /uL 0.0-0. 1 Not Available [facility] ([facility]) [address] [facility] [place], [place], [address], 08/17/2024 09:13:36 08/16/20 24 08/17/2024 CBC WITH DIFFE RENTI AL/PL ATELE T hematology comments: NOTE: Verif ied by micro binta soliz n. Not Available [facility] ([facility]) [address] [facility] [place], [place], [address], 08/17/2024 09:13:36 08/16/20 24 08/17/2024 TSH TSH 2.880 uIU/m L 0.450- 4.500 Not Available [facility] ([facility]) [address] [facility] [place], [place], [address], 08/17/2024 09:13:39 08/16/20 24 08/16/2024 HbA1c (hemo globi n A1c), blood HbA1c 8.0 Not Available In-Office Order Internal Use Only DO Not Attach Compendium DO Not Attach Compendium, Do Not Delete/merge, [id number] 08/16/2024 15:04:29 09/27/20 24 09/27/2024 COMP. METAB OLIC PANEL (14) glucose 282 mg/dL 70-99 above high normal Not Available [facility] [address] [place], [address], 09/28/2024 06:22:24 09/27/20 24 09/27/2024 COMP. METAB OLIC PANEL (14) BUN 34 mg/dL 8-27 above high normal Not Available [facility] Department [address] [place], [address], 09/28/2024 06:22:24 09/27/20 24 09/27/2024 COMP. METAB OLIC PANEL (14) creatinine 1.60 mg/dL 0.76-1 .27 above high normal Not Available [facility] Department [address] [place], [address], 09/28/2024 06:22:24 09/27/20 24 09/27/2024 COMP. METAB OLIC PANEL (14) eGFR 48 >=60 below low normal Units for eGFR value s are mL/mi n/1.7 3 The eGFR Calcu latio n has not been valid ated for patie nts under the age of 18. If test resul ts are displ ayed for a patie nt under the age of 18, disre lilia that value . Not Available [facility] Department [address] [place] [address], [address], 09/28/2024 06:22:24 09/27/20 24 09/27/2024 COMP. METAB OLIC PANEL (14) BUN/creatini ne ratio 21 10-24 Not Available [facility] Department [address] [place], [address], 09/28/2024 06:22:24 09/27/20 24 09/27/2024 COMP. METAB OLIC PANEL (14) sodium 139 mmol/ L 134-14 4 Not Available [facility] Department [address] [place] [address], [address], 09/28/2024 06:22:24 09/27/20 24 09/27/2024 COMP. METAB OLIC PANEL (14) potassium 4.9 mmol/ L 3.5-5. 2 Not Available [facility] [address] [place], [address], 09/28/2024 06:22:24 09/27/20 24 09/27/2024 COMP. METAB OLIC PANEL (14) chloride 107 mmol/ L 96-106 above high normal Not Available [facility] Department [address] [place], [address], 09/28/2024 06:22:24 09/27/20 24 09/27/2024 COMP. METAB OLIC PANEL (14) carbon dioxide, total 22 mmol/ L 20-29 Not Available [facility] [address] [place], [address], 09/28/2024 06:22:24 09/27/20 24 09/27/2024 COMP. METAB OLIC PANEL (14) calcium 8.9 mg/dL 8.6-10 .2 Not Available [facility] Department [address] [place], [address], 09/28/2024 06:22:24 09/27/20 24 09/27/2024 COMP. METAB OLIC PANEL (14) protein, total 7.2 g/dL 6.0-8. 5 Not Available [facility] Department [address] [place], [address], 09/28/2024 06:22:24 09/27/20 24 09/27/2024 COMP. METAB OLIC PANEL (14) albumin 3.2 g/dL 3.9-4. 9 below low normal Not Available [facility] [address] [place], [address], 09/28/2024 06:22:24 09/27/20 24 09/27/2024 COMP. METAB OLIC PANEL (14) globulin, total 4.0 g/dL 1.5-4. 5 Not Available [facility] Department [address] [place], [address], 09/28/2024 06:22:24 09/27/2001 1009/27/2024 COMP. METAB OLIC PANEL (14) A/G ratio 0.8 1.2-2. 2 below low normal Not Available [facility] Department [address] [place] [address], [address], 09/28/2024 06:22:24 09/27/20 24 09/27/2024 COMP. METAB OLIC PANEL (14) bilirubin, total 1.5 mg/dL 0.0-1. 2 above high normal Not Available [facility] Department [address] [place] [address], [address], 09/28/2024 06:22:24 09/27/20 24 09/27/2024 COMP. METAB OLIC PANEL (14) alkaline phosphatase 146 IU/L 44-121 above high normal Not Available [facility] Department [address] [place] [address], [address], 09/28/2024 06:22:24 09/27/20 24 09/27/2024 COMP. METAB OLIC PANEL (14) AST (SGOT) 46 IU/L 0-40 above high normal Not Available [facility] Department [address] [place] [address], [address], 09/28/2024 06:22:24 09/27/20 24 09/27/2024 COMP. METAB OLIC PANEL (14) ALT (SGPT) 23 IU/L 0-44 Not Available [facility] Department [address] [place] [address], [address], 09/28/2024 06:22:24 09/27/20 24 09/27/2024 CBC WITH DIFFE RENTI AL/PL ATELE T WBC 5.4 x10e3 /uL 3.4-10 .8 Eff ectiv e Decem juan 2023 profi pepito [id number] WBC will be made* * non-o rdera ble as a stand -chris e order code. Not Available [facility] Department [address] [place] [address], [address], 09/28/2024 06:22:26 09/27/20 24 09/27/2024 CBC WITH DIFFE RENTI AL/PL ATELE T RBC 2.99 x10e6 /uL 4.14-5 .80 below low normal Not Available [facility] [address] [place], [address], 09/28/2024 06:22:26 09/27/20 24 09/27/2024 CBC WITH DIFFE RENTI AL/PL ATELE T hemoglobin 10.0 g/dL 13.0-1 7.7 below low normal Not Available [facility] [address] [place], [address], 09/28/2024 06:22:26 09/27/20 24 09/27/2024 CBC WITH DIFFE RENTI AL/PL ATELE T hematocrit 30.7 % 37.5-5 1.0 below low normal Not Available [facility] [address] [place], [address], 09/28/2024 06:22:26 09/27/20 24 09/27/2024 CBC WITH DIFFE RENTI AL/PL ATELE T MCV 103 fL 79-97 above high normal Not Available [facility] [address] [place], [address], 09/28/2024 06:22:26 09/27/20 24 09/27/2024 CBC WITH DIFFE RENTI AL/PL ATELE T MCH 33.4 pg 26.6-3 3.0 above high normal Not Available [facility] [address] [place], [address], 09/28/2024 06:22:26 09/27/20 24 09/27/2024 CBC WITH DIFFE RENTI AL/PL ATELE T MCHC 32.6 g/dL 31.5-3 5.7 Not Available [facility] [address] [place], [address], 09/28/2024 06:22:26 09/27/20 24 09/27/2024 CBC WITH DIFFE RENTI AL/PL ATELE T RDW 14.0 % 11.5-1 4.5 Not Available [facility] [address] [place], [address], 09/28/2024 06:22:26 09/27/20 24 09/27/2024 CBC WITH DIFFE RENTI AL/PL ATELE T platelets 60 x10e3 /uL 150-45 0 below low normal Not Available [facility] [address] [place], [address], 09/28/2024 06:22:26 09/27/20 24 09/27/2024 CBC WITH DIFFE RENTI AL/PL ATELE T neutrophils 69 % notest b. Not Available [facility] [address] [place], [address], 09/28/2024 06:22:26 09/27/20 24 09/27/2024 CBC WITH DIFFE RENTI AL/PL ATELE T lymphs 17 % notest b. Not Available [facility] [address] [place], [address], 09/28/2024 06:22:26 09/27/20 24 09/27/2024 CBC WITH DIFFE RENTI AL/PL ATELE T monocytes 9 % notest b. Not Available [facility] [address] [place], [address], 09/28/2024 06:22:26 09/27/20 24 09/27/2024 CBC WITH DIFFE RENTI AL/PL ATELE T eos 4 % notest b. Not Available [facility] [address] [place], [address], 09/28/2024 06:22:26 09/27/20 24 09/27/2024 CBC WITH DIFFE RENTI AL/PL ATELE T basos 1 % notest b. Not Available [facility] [address] [place], [address], 09/28/2024 06:22:26 09/27/20 24 09/27/2024 CBC WITH DIFFE RENTI AL/PL ATELE T neutrophils (absolute) 3.7 x10e3 /uL 1.4-7. 0 Not Available [facility] [address] [place], [address], 09/28/2024 06:22:26 09/27/20 24 09/27/2024 CBC WITH DIFFE RENTI AL/PL ATELE T lymphs (absolute) 0.9 x10e3 /uL 0.7-3. 1 Not Available [facility] Department [address] [place] [address], [address], 09/28/2024 06:22:26 09/27/20 24 09/27/2024 CBC WITH DIFFE RENTI AL/PL ATELE T monocytes(ab solute) 0.5 x10e3 /uL 0.1-0. 9 Not Available [facility] Department [address] [place], [address], 09/28/2024 06:22:26 09/27/20 24 09/27/2024 CBC WITH DIFFE RENTI AL/PL ATELE T eos (absolute) 0.2 x10e3 /uL 0.0-0. 4 Not Available [facility] [address] [place], [address], 09/28/2024 06:22:26 09/27/20 24 09/27/2024 CBC WITH DIFFE RENTI AL/PL ATELE T baso (absolute) 0.0 x10e3 /uL 0.0-0. 2 Not Available [facility] [address] [place], [address], 09/28/2024 06:22:26 09/27/20 24 09/27/2024 CBC WITH DIFFE RENTI AL/PL ATELE T immature granulocytes 0.4 % notest b. Not Available [facility] [address] [place], [address], 09/28/2024 06:22:26 09/27/20 24 09/27/2024 CBC WITH DIFFE RENTI AL/PL ATELE T immature grans (abs) 0.0 x10e3 /uL 0.0-0. 1 Not Available [facility] [address] [place], [address], 09/28/2024 06:22:26 09/27/20 24 09/27/2024 CBC WITH DIFFE RENTI AL/PL ATELE T NRBC 0 % 0-0 Not Available [facility] Department [address] [place], [address], 09/28/2024 06:22:26 09/27/20 24 09/28/2024 B-TYP E NATRI URETI C PEPTI DE B-type natriuretic peptide 186.4 pg/mL 0.0-10 0.0 above high normal Sieme ns AD[facility]IA [facility] XP metho dolog y Not Available [facility] ([facility]) [address] [place], [address], 09/28/2024 10:14:49 09/27/20 24 09/28/2024 IRON AND TIBC iron bind.cap.(TI BC) 235 ug/dL 250-45 0 below low normal Not Available [facility] ([facility]) [address] [place], [address], 09/28/2024 10:14:50 09/27/20 24 09/28/2024 IRON AND TIBC UIBC 114 ug/dL 111-34 3 Not Available [facility] ([facility]) [address] [place], [address], 09/28/2024 10:14:50 09/27/20 24 09/28/2024 IRON AND TIBC iron 121 ug/dL 38-169 Not Available [facility] ([facility]) [address] [place], [address], 09/28/2024 10:14:50 09/27/20 24 09/28/2024 IRON AND TIBC iron saturation 51 % 15-55 Not Available [facility] ([facility]) [address] [place], [address], 09/28/2024 10:14:50 11/22/19 25 11/23/2024 HEMOG LOBIN A1C hemoglobin A1C 6.8 % 4.8-5. 6 above high normal Predi abete s: 5.7 - 6.4 Diabe chetan: >6.4 Glyce neli contr ol for adult s with diabe chetan: <7.0 Not Available [facility] ([facility]) [address] [facility] [place], [place], [address], 11/23/2024 07:16:20 11/22/19 25 11/22/2024 BASIC METAB OLIC PANEL (8) interpretati on: COMMEN T GFR estim ate at the follo wing level for >or=3 month s is class ified as follo ws: GFR WITH KIDNE Y DAMAG E WITHO UT KIDNE Y DAMAG E >or=9 0 Stage 1 Sylvester l 60-89 Stage 2 Decr eased GFR 30-59 Stage 3 Stage 3 15-29 Stage 4 Stage 4 <15 (or dialy sis) Stage 5 Stage 5 Estim ated GFR will over estim ate true GFR if serum creat inine is risin g as in acute renal failu re and will under estim ate true GFR if serum creat inine is decli ren as in resol ving acute renal failu re. Addit ional infor matio n may be found at www.k doqi. org. Not Available [facility] ([facility]) [address] [facility] [place], [place], [address], 11/23/2024 08:26:44 11/22/19 25 11/23/2024 BASIC METAB OLIC PANEL (8) glucose 158 mg/dL 70-99 above high normal Not Available [facility] ([facility]) [address] [place], [address], 11/23/2024 08:26:44 11/22/19 25 11/23/2024 BASIC METAB OLIC PANEL (8) BUN 34 mg/dL 8-27 above high normal Not Available [facility] ([facility]) [address] [facility] [place], [address], 11/23/2024 08:26:44 11/22/19 25 11/23/2024 BASIC METAB OLIC PANEL (8) creatinine 1.89 mg/dL 0.76-1 .27 above high normal Not Available [facility] ([facility]) [address] [facility] [place], [address], 11/23/2024 08:26:44 11/22/19 25 11/23/2024 BASIC METAB OLIC PANEL (8) eGFR 39 mL/mi n/1.7 3 >59 below low normal Not Available [facility] ([facility]) [address] [facility] [place], [place], [address], 11/23/2024 08:26:44 11/22/19 25 11/23/2024 BASIC METAB OLIC PANEL (8) BUN/creatini ne ratio 18 10-24 Not Available [facility] ([facility]) [address] [place], [address], 11/23/2024 08:26:44 11/22/19 25 11/23/2024 BASIC METAB OLIC PANEL (8) sodium 142 mmol/ L 134-14 4 Not Available [facility] ([facility]) [address] [place], [address], 11/23/2024 08:26:44 11/22/19 25 11/23/2024 BASIC METAB OLIC PANEL (8) potassium 4.7 mmol/ L 3.5-5. 2 Not Available [facility] ([facility]) [address] [place], [address], 11/23/2024 08:26:44 11/22/19 25 11/23/2024 BASIC METAB OLIC PANEL (8) chloride 110 mmol/ L 96-106 above high normal Not Available [facility] ([facility]) [address] [place], [address], 11/23/2024 08:26:44 11/22/19 25 11/23/2024 BASIC METAB OLIC PANEL (8) carbon dioxide, total 20 mmol/ L 20-29 Not Available [facility] ([facility]) [address] [place], [address], 11/23/2024 08:26:44 11/22/19 25 11/23/2024 BASIC METAB OLIC PANEL (8) calcium 8.8 mg/dL 8.6-10 .2 Not Available [facility] ([facility]) [address] [place], [address], 11/23/2024 08:26:44 11/22/19 25 11/23/2024 COMP. METAB OLIC PANEL (14) glucose 156 mg/dL 70-99 above high normal Not Available [facility] ([facility]) [address] [place], [address], 11/23/2024 09:13:09 11/22/19 25 11/23/2024 COMP. METAB OLIC PANEL (14) BUN 36 mg/dL 8-27 above high normal Not Available [facility] ([facility]) [address] [place], [address], 11/23/2024 09:13:09 11/22/19 25 11/23/2024 COMP. METAB OLIC PANEL (14) creatinine 1.95 mg/dL 0.76-1 .27 above high normal Not Available [facility] ([facility]) [address] [place], [address], 11/23/2024 09:13:09 11/22/19 25 11/23/2024 COMP. METAB OLIC PANEL (14) eGFR 38 mL/mi n/1.7 3 >59 below low normal Not Available [facility] ([facility]) [address] [place], [address], 11/23/2024 09:13:09 11/22/19 25 11/23/2024 COMP. METAB OLIC PANEL (14) BUN/creatini ne ratio 18 10-24 Not Available [facility] ([facility]) [address] [facility] [place], [address], 11/23/2024 09:13:09 11/22/19 25 11/23/2024 COMP. METAB OLIC PANEL (14) sodium 141 mmol/ L 134-14 4 Not Available [facility] ([facility]) [address] [facility] [place], [address], 11/23/2024 09:13:09 11/22/19 25 11/23/2024 COMP. METAB OLIC PANEL (14) potassium 4.7 mmol/ L 3.5-5. 2 Not Available [facility] ([facility]) [address] [place], [address], 11/23/2024 09:13:09 11/22/19 25 11/23/2024 COMP. METAB OLIC PANEL (14) chloride 109 mmol/ L 96-106 above high normal Not Available [facility] ([facility]) [address] [facility] [place], [address], 11/23/2024 09:13:09 11/22/19 25 11/23/2024 COMP. METAB OLIC PANEL (14) carbon dioxide, total 19 mmol/ L 20-29 below low normal Not Available [facility] ([facility]) [address] [facility] [place], [address], 11/23/2024 09:13:09 11/22/19 25 11/23/2024 COMP. METAB OLIC PANEL (14) calcium 8.9 mg/dL 8.6-10 .2 Not Available [facility] ([facility]) [address] [facility] [place], [address], 11/23/2024 09:13:09 11/22/19 25 11/23/2024 COMP. METAB OLIC PANEL (14) protein, total 7.6 g/dL 6.0-8. 5 Not Available [facility] ([facility]) [address] [place], [address], 11/23/2024 09:13:09 11/22/19 25 11/23/2024 COMP. METAB OLIC PANEL (14) albumin 3.5 g/dL 3.9-4. 9 below low normal Not Available [facility] ([facility]) [address] [place], [address], 11/23/2024 09:13:09 11/22/19 25 11/23/2024 COMP. METAB OLIC PANEL (14) globulin, total 4.1 g/dL 1.5-4. 5 Not Available [facility] ([facility]) [address] [place], [address], 11/23/2024 09:13:09 11/22/19 25 11/23/2024 COMP. METAB OLIC PANEL (14) bilirubin, total 1.0 mg/dL 0.0-1. 2 Not Available [facility] ([facility]) [address] [place], [address], 11/23/2024 09:13:09 11/22/19 25 11/23/2024 COMP. METAB OLIC PANEL (14) alkaline phosphatase 166 IU/L 44-121 above high normal Not Available [facility] ([facility]) [address] [place], [address], 11/23/2024 09:13:09 11/22/19 25 11/23/2024 COMP. METAB OLIC PANEL (14) AST (SGOT) 45 IU/L 0-40 above high normal Not Available [facility] ([facility]) [address] [place], [address], 11/23/2024 09:13:09 11/22/1911/23/2024 COMP. METAB OLIC PANEL (14) ALT (SGPT) 22 IU/L 0-44 Not Available [facility] ([facility]) [address] [place], [address], 11/23/2024 09:13:09 11/22/1911/23/2024 CBC WITH DIFFE RENTI AL/PL ATELE T WBC 5.6 x10e3 /uL 3.4-10 .8 Not Available [facility] ([facility]) [address] [place], [address], 11/23/2024 09:13:11 11/22/1911/23/2024 CBC WITH DIFFE RENTI AL/PL ATELE T RBC 2.88 x10e6 /uL 4.14-5 .80 below low normal Not Available [facility] ([facility]) [address] [place], [address], 11/23/2024 09:13:11 11/22/1911/23/2024 CBC WITH DIFFE RENTI AL/PL ATELE T hemoglobin 9.6 g/dL 13.0-1 7.7 below low normal Not Available [facility] ([facility]) [address] [place], [address], 11/23/2024 09:13:11 11/22/1911/23/2024 CBC WITH DIFFE RENTI AL/PL ATELE T hematocrit 28.8 % 37.5-5 1.0 below low normal Not Available [facility] ([facility]) [address] [place], [address], 11/23/2024 09:13:11 11/22/1911/23/2024 CBC WITH DIFFE RENTI AL/PL ATELE T MCV 100 fL 79-97 above high normal Not Available [facility] ([facility]) [address] [place], [address], 11/23/2024 09:13:11 11/22/1911/23/2024 CBC WITH DIFFE RENTI AL/PL ATELE T MCH 33.3 pg 26.6-3 3.0 above high normal Not Available [facility] ([facility]) [address] [facility], [place], [address], 11/23/2024 09:13:11 11/22/19 25 11/23/2024 CBC WITH DIFFE RENTI AL/PL ATELE T MCHC 33.3 g/dL 31.5-3 5.7 Not Available [facility] ([facility]) [address] [facility], [place], [address], 11/23/2024 09:13:11 11/22/19 25 11/23/2024 CBC WITH DIFFE RENTI AL/PL ATELE T RDW 12.4 % 11.6-1 5.4 Not Available [facility] ([facility]) [address] [facility], [place], [address], 11/23/2024 09:13:11 11/22/1911/23/2024 CBC WITH DIFFE RENTI AL/PL ATELE T platelets 69 x10e3 /uL 150-45 0 alert low Plate let count verif ied by exami martínez n of perip heral blood smear . Not Available [facility] ([facility]) [address] [facility] [place], [place], [address], 11/23/2024 09:13:11 11/22/1911/23/2024 CBC WITH DIFFE RENTI AL/PL ATELE T neutrophils 62 % notest ab. Not Available [facility] ([facility]) [address] [place], [address], 11/23/2024 09:13:11 11/22/19 25 11/23/2024 CBC WITH DIFFE RENTI AL/PL ATELE T lymphs 21 % notest ab. Not Available [facility] ([facility]) [address] [facility] [place], [place], [address], 11/23/2024 09:13:11 11/22/1911/23/2024 CBC WITH DIFFE RENTI AL/PL ATELE T monocytes 10 % notest ab. Not Available [facility] ([facility]) [address] [facility] [place], [place], [address], 11/23/2024 09:13:11 11/22/1911/23/2024 CBC WITH DIFFE RENTI AL/PL ATELE T eos 5 % notest ab. Not Available [facility] ([facility]) [address] [facility] [place], [place], [address], 11/23/2024 09:13:11 11/22/1911/23/2024 CBC WITH DIFFE RENTI AL/PL ATELE T basos 1 % notest ab. Not Available [facility] ([facility]) [address] [facility] [place], [place], [address], 11/23/2024 09:13:11 11/22/1911/23/2024 CBC WITH DIFFE RENTI AL/PL ATELE T neutrophils (absolute) 3.5 x10e3 /uL 1.4-7. 0 Not Available [facility] ([facility]) [address] [facility] [place], [place], [address], 11/23/2024 09:13:11 11/22/1911/23/2024 CBC WITH DIFFE RENTI AL/PL ATELE T lymphs (absolute) 1.2 x10e3 /uL 0.7-3. 1 Not Available [facility] ([facility]) [address] [facility], [place], [address], 11/23/2024 09:13:11 11/22/1911/23/2024 CBC WITH DIFFE RENTI AL/PL ATELE T monocytes(ab solute) 0.5 x10e3 /uL 0.1-0. 9 Not Available [facility] ([facility]) [address] [facility], [place], [address], 11/23/2024 09:13:11 11/22/1911/23/2024 CBC WITH DIFFE RENTI AL/PL ATELE T eos (absolute) 0.3 x10e3 /uL 0.0-0. 4 Not Available [facility] ([facility]) [address] [facility], [place], [address], 11/23/2024 09:13:11 11/22/1911/23/2024 CBC WITH DIFFE RENTI AL/PL ATELE T baso (absolute) 0.0 x10e3 /uL 0.0-0. 2 Not Available [facility] ([facility]) [address] [facility] [place], [place], [address], 11/23/2024 09:13:11 11/22/1911/23/2024 CBC WITH DIFFE RENTI AL/PL ATELE T immature granulocytes 1 % notest ab. Not Available [facility] ([facility]) [address] [facility], [place], [address], 11/23/2024 09:13:11 11/22/19 25 11/23/2024 CBC WITH DIFFE RENTI AL/PL ATELE T immature grans (abs) 0.0 x10e3 /uL 0.0-0. 1 Not Available [facility] ([facility]) [address] [facility] [place], [place], [address], 11/23/2024 09:13:11 11/22/1911/23/2024 CBC WITH DIFFE RENTI AL/PL ATELE T hematology comments: NOTE: Verif ied by petty soliz n. Not Available [facility] ([facility]) [address] [facility] [place], [place], [address], 11/23/2024 09:13:11 10/01/20 24 09/27/2024 XR, chest , 2 view No observ ation record ed. [facility] [address] [facility] [place], [address], 10/03/2024 16:37:39 11/02/20 24 10/25/2024 US, echoc ardio gram No observ ation record ed. [address] [facility] [place], [address], 11/02/2024 12:11:50 11/06/20 24 10/25/2024 US, echoc ardio gram, trans thora cic, compl ete, w/ color flow No observ ation record ed. [email or web address] Not Available 2023 15:13:35 01/16/20 25 01/15/2025 XR, chest , 2 view No observ ation record ed. [address], [address], 01/15/2025 14:26:20 Result Notes None recorded. Problems No Known Problems Procedures Surgical History Date Name Laterality Status Provider Name and Address Organization Details Recorded Time Vasectomy completed Lcuy More [place] - [facility] 01/24/2018 11:31:02 Imaging Results Imaging Date Name Status LastModified by Organization Details LastModified Time 09/27/2024 XR, chest, 2 view completed WESTON Clifford [address] [place], [address], 10/03/2024 16:37:39 10/25/2024 US, echocardiogram completed [address] [place] [address], [address], 11/02/2024 12:11:50 10/25/2024 US, echocardiogram, transthoracic, complete, w/ color flow completed [email or web address] Information not available 11/06/2024 15:13:35 01/15/2025 XR, chest, 2 view active [address], [address], 01/15/2025 14:26:20 Procedure Notes None recorded. Medical Equipment None Reported. Allergies Allergen ID Allergen Name Allergen Category Reaction Reaction Severity Criticality Documentation Date Start Date Code Code System Note Provider Name and Address Organization Details Recorded Time 523655 oxycodone medicatio n itching Not available Not available 01/24/2018 7804 RxNorm Not Available Not Available Not Available 103890 orange juice food,medi cation itching Not available Not available 07/23/2020 08119 66 RxNorm Not Available Not Available Not Available 516573 tomato allergeni c extract food other Not available Not available 08/16/2024 51886 9 RxNorm Swell ing in face Not Available Not Available Not Available Medications Name Sig Start Date Stop Date Status Note LastModified by Organization Details LastModified Time losartan 50 mg tablet TAKE 1 TABLET BY MOUTH EVERY DAY active Not Available Not Available No t Available amoxicillin 500 mg capsule 07/23 completed Not Available Not Available Not Available azithromyci n 250 mg tablet TAKE 2 TABLETS (500 MG) BY ORAL ROUTE ONCE DAILY FOR 1 DAY THEN 1 TABLET (250 MG) BY ORAL ROUTE ONCE DAILY FOR 4 DAYS 09/09 completed Not Available Not Available Not Available Lantus U-100 Insulin 100 unit/mL subcutaneou s solution Inject 25 units every day by subcutane ous route. 05/01 completed Not Available Not Available Not Available penicillin V potassium 500 mg tablet 12/08 completed Not Available Not Available Not Available potassium chloride ER 10 mEq tablet,exte nded release TAKE 2TABLET BY MOUTH THREE TIMES DAILY WHEN TAKING FUROSEMID E active Not Available Not Available No t Available sulfamethox azole 800 mg-trimetho prim 160 mg tablet TAKE 1 TABLET BY MOUTH EVERY 12 HOURS 12/22 completed Not Available Not Available Not Available triamcinolo ne acetonide 0.1 % topical cream 12/22 completed Not Available Not Available Not Available amoxicillin 500 mg tablet Take 1 tablet 3 times a day by oral route for 10 days. 07/23 completed Not Available Not Available Not Available carvedilol 3.125 mg tablet TAKE 1 TABLET TWICE A DAY BY ORAL ROUTE FOR 90 DAYS. active Not Available Not Available No t Available ketorolac 0.5 % eye drops INSTILL ONE DROP IN THE LEFT EYE THREE TIMES DAILY STARTING TWO DAYS BEFORE SURGERY 12/22 completed Not Available Not Available Not Available meloxicam 7.5 mg tablet TAKE 1 TABLET BY MOUTH TWICE A DAY WITH MEALS 07/23 completed Not Available Not Available Not Available Tessalon Perles 100 mg capsule Take 1 capsule 3 times a day by oral route as needed for 10 days. 12/26 completed Not Available Not Available Not Available prednisolon e acetate 1 % eye drops,suspe nsion INSTILL ONE DROP IN THE LEFT EYE THREE TIMES DAILY STARTING AFTER SURGERY 12/22 completed Not Available Not Available Not Available doxycycline monohydrate 100 mg capsule TAKE 1 CAPSULE BY MOUTH TWICE A DAY FOR 14 DAYS 11/07 completed Not Available Not Available Not Available cephalexin 500 mg capsule 11/16 completed Not Available Not Available Not Available Humulin R Regular U-100 Insulin 100 unit/mL injection solution INJECT 15 UNITS SUBCUTANE OUSLY 3 TIMES DAILY active Not Available Not Available No t Available ferrous sulfate 325 mg (65 mg iron) tablet Take 1 tablet every day by oral route. 2024 active Not Available Not Available Not Avai lable polymyxin B sulfate 10,000 unit-trimet hoprim 1 mg/mL eye drops INSTILL ONE DROP IN THE LEFT EYE THREE TIMES DAILY STARTING TWO DAYS BEFORE SURGERY 12/22 completed Not Available Not Available Not Available Humulin N NPH U-100 Insulin (isophane susp) 100 unit/mL subcutaneou s INJECT 15 UNITS SUBCUTANE OUSLY TWICE DAILY 12/26 completed Not Available Not Available Not Available gabapentin 300 mg capsule Take 1 capsule every day by oral route at bedtime for 30 days. 07/23 completed Not Available Not Available Not Available furosemide 20 mg tablet TAKE 2 TABLETS BY MOUTH 3 TIMES A DAY 2024 active Not Available Not Available Not Avai lable gabapentin 100 mg capsule Take 1 capsule every day by oral route at bedtime for 30 days. 01/30 completed Not Available Not Available Not Available hydroxychlo roquine 200 mg tablet TAKE 1 TABLET BY MOUTH TWICE A DAY FOR 5 DAYS 12/26 completed Not Available Not Available Not Available ibuprofen 600 mg tablet Take 1 tablet 4 times a day by oral route as needed. 12/26 completed Not Available Not Available Not Available methylpredn isolone 4 mg tablets in a dose pack TAKE 6 TABLETS ON DAY 1 DIRECTED ON PACKAGE AND DECREASE BY 1 TAB EACH DAY FOR A TOTAL OF 6 DAYS 11/07 completed Not Available Not Available Not Available albuterol sulfate HFA 90 mcg/actuati on aerosol inhaler INHALE 2 PUFFS EVERY 4 HOURS BY INHALATIO N ROUTE NEEDED 2024 active Not Available Not Available Not Avai lable Novolin N (Semi-Synth etic) 100 unit/mL subcutaneou s suspension Inject 15 units twice a day by subcutane ous route. 01/26 completed Not Available Not Available Not Available OneTouch Delica Lancets 33 gauge USE TO CHECK BLOOD SUGAR 3 TIMES DAILY active Not Available Not Available No t Available OneTouch Verio test strips USE TO CHECK BLOOD SUGAR 3 TIMES A DAY active Not Available Not Available No t Available TRUEplus Insulin 1 mL 31 gauge x 5/16 syringe USE TO INJECT INSULIN 3 TIMES A DAY active Not Available Not Available No t Available BD Insulin Syringe Ultra-Fine 0.3 mL 31 gauge x 5/16 11/12 completed Not Available Not Available Not Available BD Insulin Syringe Ultra-Fine 0.5 mL 31 gauge x 5/16 USE TO INJECT INSULIN 4 TIMES DAILY 11/12 completed Not Available Not Available Not Available Jardiance 10 mg tablet TAKE 1 TABLET BY MOUTH EVERY DAY 2024 active Not Available Not Available Not Avmary Rodriguez U-100 Insulin 100 unit/mL (3 mL) subcutaneou s USE UP TO 30 UNITS DAILY (SCHEDULE APPT. WITH PROVIDER FOR FURTHER REFILLS) 2023 active Not Available Not Available Not Avai lable TRUEplus Pen Needle 31 gauge x 5/16 USE TO CHECK BLOOD SUGAR 3 TIMES DAILY 2024 active Not Available Not Available Not Avai lable BD Veo Insulin Syringe Ultra-Fine 1/2 mL 31 gauge x 15/64 USE DIRECTED. USE FOR 5 INJECTION S DAILY. 11/12 completed Not Available Not Available Not Available Accu-Chek Fastclix Lancet Drum 09/09 completed Not Available Not Available Not Available OneTouch Verio Reflect Meter USE TO TEST BLOOD SUGAR 3 TIMES A DAY active Not Available Not Available No t Available Vitals Date Recorded Body weight Body mass index (BMI) Body height Oxygen saturation Oxygen saturation in Arterial blood by Pulse oximetry Body temperature Respiratory rate Heart rate Provider Name and Address Organization Details Last Updated DateTime 4 490908. 66 g 44.4 kg/m2 187.96 cm 98 % 98 % 99.4 [degF] 16 /min 73 /min Talon Nelson MA [facility] 4 14:39:37 Date Recorded Systolic blood pressure Diastolic blood pressure Provider Name and Address Organization Details Last Updated DateTime 12/22/2023 190 mm[Hg] 80 mm[Hg] Flo Grover MD Attn: [facility] [place], [address], [facility] 12/22/2023 15:40:54 Date Recorded Body height Body mass index (BMI) Body weight Oxygen saturation Oxygen saturation in Arterial blood by Pulse oximetry Heart rate Respiratory rate Body temperature Systolic blood pressure Diastolic blood pressure Provider Name and Address Organization Details Last Updated DateTime 4 187.96 cm 45.3 kg/m2 359451. 16 g 98 % 98 % 85 /min 16 /min 98.5 [degF] 139 mm[Hg] 76 mm[Hg] Vleia Leone MA [facility] 4 14:59:22 Date Recorded Body height Body mass index (BMI) Body weight Respiratory rate Body temperature Heart rate Oxygen saturation Oxygen saturation in Arterial blood by Pulse oximetry Provider Name and Address Organization Details Last Updated DateTime 4 187.96 cm 44.8 kg/m2 318298. 44 g 18 /min 98.6 [degF] 80 /min 96 % 96 % Talon Nelson MA [facility] 4 14:16:31 Date Recorded Systolic blood pressure Diastolic blood pressure Provider Name and Address Organization Details Last Updated DateTime 09/27/2024 152 mm[Hg] 68 mm[Hg] Velia Leone MA [facility] 09/27/2024 14:31:26 Date Recorded Body height Body mass index (BMI) Body weight Respiratory rate Heart rate Oxygen saturation Oxygen saturation in Arterial blood by Pulse oximetry Systolic blood pressure Diastolic blood pressure Provider Name and Address Organization Details Last Updated DateTime 4 187.96 cm 46.7 kg/m2 732794. 62 g 18 /min 79 /min 98 % 98 % 128 mm[Hg] 82 mm[Hg] Karen Norris LPN [place] - [facility] 4 10:17:48 Date Recorded Body height Body mass index (BMI) Body weight Oxygen saturation Oxygen saturation in Arterial blood by Pulse oximetry Heart rate Respiratory rate Body temperature Systolic blood pressure Diastolic blood pressure Provider Name and Address Organization Details Last Updated DateTime 5 187.96 cm 45.6 kg/m2 468486. 34 g 97 % 97 % 80 /min 16 /min 98.6 [degF] 154 mm[Hg] 74 mm[Hg] Velia Leone MA [facility] 5 15:21:59 Social History Question Answer Notes LastModified by Organizat ion Details LastModified Time Tobacco Smoking Status Former Smoker Quit smoking in 1994 Velia Leone MA [facility] 08/16/2024 14:55:21 Do You Have An Advance Directive? No Information not available 12/26/2020 What Is Your Level Of Alcohol Consumption? Occasional [email or web address] Information not available 01/19/2022 Are You Blind Or Do You Have Difficulty Seeing? No Information not available 12/26/2020 What Is Your Level Of Caffeine Consumption? Moderate 1 Ti 2 Cups Of Coffee A Day And Diet Soda Information not available 12/26/2020 In The 14 Days Before Symptom Onset, Have You Had Close Contact With A Laboratory-confir med COVID-19 While That Case Was Ill? No Information not available 12/26/2020 In The 14 Days Before Symptom Onset, Have You Had Close Contact With A Person Who Is Under Investigation For COVID-19 While That Person Was Ill? No Information not available 12/26/2020 Have You Been To An Area Known To Be High Risk For COVID-19? No Information not available 12/26/2020 Are You Currently Employed? Yes Information not available 12/26/2020 Are You Deaf Or Do You Have Serious Difficulty Hearing? No Information not available 12/26/2020 What Type Of Diet Are You Following? REGULAR Information not available 12/26/2020 Do You Or Have You Ever Used E-cigarettes Or Vape? 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 No Information not available 12/26/2020 Do You Have A High School Diploma Or Higher Education? Yes Information not available 12/26/2020 Do You Sometimes Have To Miss Your Medical Appointments Due To Difficult Getting Transportation? No Information not available 12/26/2020 Do You Feel Unfairly Treated Due To Things Such As Race, Age, Gender, Disability Or Some Other Reason? No Information not available 12/26/2020 Do You Feel Physically And Emotionally Safe While Living At Home? Yes Information not available 12/26/2020 Do You Feel Physically And Emotionally Safe In Your Neighborhood Or Other Public Places? Yes Information not available 12/26/2020 What Was The Date Of Your Most Recent Tobacco Screening? 11/07/2024 Information not available 11/07/2024 How Many Children Do You Have? 3 Information not available 12/26/2020 What Is Your Current Pack Years? 20-29packyear s 1/2 Ppd Information not available 12/26/2020 Do You Use Protection During Sex? No Information not available 12/26/2020 What Is Your Relationship Status? Information not available 12/26/2020 Do You Use Your Seat Belt Or Car Seat Routinely? Yes Information not available 12/26/2020 Are You Sexually Active? Yes Information not available 12/26/2020 Do You Have Smoke And Carbon Monoxide Detectors In Your Home? Yes Information not available 12/26/2020 At What Age Did You Start Smoking Tobacco? 26 Information not available 12/26/2020 Are You Passively Exposed To Smoke? No Information no t available 12/26/2020 Do You Or Have You Ever Used Smokeless Tobacco? Never Used Smokeless Tobacco Information not available 07/17/2019 How Much Tobacco Do You Smoke? No Information not available 12/26/2020 Do You Feel Stressed (tense, Restless, Nervous, Or Anxious, Or Unable To Sleep At Night)? [id number] Information not available 12/26/2020 Do You Use Any Illicit Or Recreational Drugs? No Information not available 12/26/2020 Do You Use Sunscreen Routinely? No Information not available 12/26/2020 Has Tobacco Cessation Counseling Been Provided? Yes Information not available 12/26/2020 On What Date Was Tobacco Cessation Counseling Provided? 11/07/2024 Information not available 11/07/2024 How Many Years Have You Smoked Tobacco? 20 Information not available 07/17/2019 Do You Or Have You Ever Used Any Other Forms Of Tobacco Or Nicotine? No Information not available 12/26/2020 Sex: Male Functional Status Question Answer Note LastModified by Organization D etails LastModified Time Are you able to care for yourself? Yes Information n ot available 12/26/2020 What is your exercise level? None Information not available 12/26/2020 Mental Status None recorded. Family History Relationship Description Onset Age of this Age Resolved Age Notes LastModified by Organization Details LastModified Time Brother Alcohol abuse [email or web address] Not available 11:28:07 Mother Parkinson's disease [email or web address] Not available 11:28:29 Mother Malignant lymphoma [email or web address] Not available 11:28:59 Father Family history of stroke [email or web address] Not available 11:29:24 Notes:no new reported 1, 01/20/21, 08/16/24, 09/27/24, 11/22/24 Medical History Condition Response Diabetes Y Immunizations Vaccine Type Date Status Note Provider Name and Address Organization Details Recorded Time Tdap cancelled patient objection Flo Grover MD Attn: Accounting,[address], [place], [address], [place] - [facility] 08/22/2024 07:14:11 COVID-19, mRNA, LNP-S, PF, 30 mcg/0.3 mL dose 4 cancelled patient objection Flo Grover MD Attn: Accounting,[address] [facility], [place], [address], [facility] - [facility] 08/22/2024 07:14:11 Influenza, split virus, trivalent, PF 4 cancelled patient objection Flo Grover MD Attn: Accounting,[address] [facility], [place], [address], [facility] - [facility] 08/22/2024 07:14:11 Past Encounters Encounter ID Performer Location Encounter Start Date Encounter Closed Date Diagnosis/Indication Diagnosis SNOMED-CT Code Diagnosis ICD10 Code Diagnosis Note [id number] Flo Grover MD [facility] [address] [place] [address] 01/24/2018 11:02:20 01/26/2018 11:31:19 Type 2 diabetes mellitus without complication 813670183 E11.9 Edema of l ower extremity 609628547 R60.0 Charcot's joint of foot 024813007 M14.679 We will castaneda down old records and see what was recommende d for pt at this point. Obesity 115306106 E66.9 [id number] Flo Grover MD [facility] [address] [place] [address] 02/23/2018 10:28:09 02/28/2018 13:32:28 Type 2 diabetes mellitus 63193721 E11.9 Diabetic p eripheral neuropathy 740966627 E11.40 Injury of foot 038489506 S99.921D [id number] Flo Grover MD [place] 14 IM 4 [facility] [address] [address] 06/30/2018 13:58:48 07/02/2018 10:53:09 Type 2 diabetes mellitus 50101195 E11.9 Anemia 954632394 D64.9 Charcot's arthropathy 35 0187828 M14.671 Adult heal th examination 738210904 Z00.00 Pt was encouraged to consider the pneumonia vaccinatio ns given his DM. [id number] MD [place] Barreto [address] [facility] [place] [address] 01/30/2019 11:27:50 01/31/2019 15:58:39 Type 2 diabetes mellitus 40963318 E11.9 Adult [facility] th examination 393868115 Z00.00 Pt was encouraged to consider the pneumonia vaccinatio ns given his DM. Diabetic p eripheral neuropathy 218716303 E11.40 Morbid obesity 945739293 E66.01 Pt is motivated to lose weight after this long dreary winter. [id number] MD [place] Barreto [address] [facility] [place] [address] 07/17/2019 15:37:37 07/19/2019 10:55:50 Type 2 diabetes mellitus 58379909 E11.9 Basaglar is now started--s top the Humulin NPH. Charcot's arthropathy 35 3377602 M14.671 much improved! [id number] MD [place] Barreto [address] [facility] [place] [address] 07/23/2020 15:46:35 07/24/2020 22:45:44 Type 2 diabetes mellitus 23121785 E11.9 Pt is presently taking 25 units of Basaglar daily and 15 units of humulin TID with meals Pt will do blood work at [facility] outpatient laboratory later today as he was in a hurry to leave. Influenza immunization advised 512786225 Z71.89 Morbid obesity 253124054 E66.01 [id number] MD [place] Barreto [address] [facility] [place] [address] 12/26/2020 09:05:49 12/30/2020 09:17:14 Sleep disorder 33763095 G47.9 Edema of l ower extremity 169771914 R60.0 Morbid obesity 023973751 E66.01 [id number] MD [place] Barreto [address] [facility] [place] [address] 01/20/2021 16:46:30 01/22/2021 13:21:01 Type 2 diabetes mellitus 05534060 E11.9 Basaglar 25 units ----humuli n 15 units TID with meals---Hg bA1c at 6.6 is excellent- -pt was advised NOT to increase the dosage of either the bagaglar nor the humulin. Morbid obesity 515403551 E66.01 Pt was encouraged to lose wt and improve diet. Foot callus 109508016 L8 4 Sleep disorder 22214618 G47.9 Charcot's arthropathy 35 9103835 M14.671 much improved! [id number] MD [place] Barreto 14 IM [address] [facility] [place] [address] 09/24/2021 15:29:47 09/26/2021 12:59:28 Morbid obesity 709765012 E66.01 Pt was encouraged to lose wt and improve diet. Cough 82433646 R05.9 Type 2 jennifer betes mellitus 29745106 E11.9 Basaglar 25 units ----humuli n 15 units TID with meals---Hg bA1c at 6.6 is excellent- -pt was advised NOT to increase the dosage of either the bagaglar nor the humulin. [id number] MD [place] Barreto 14 IM [address] [facility] [place] [address] 01/19/2022 16:45:54 01/22/2022 22:55:43 Pre-surgery evaluation 546653069 Z01.818 Type 2 jennifer betes mellitus 78365599 E11.9 Basaglar 25 units ----humuli n 15 units TID with meals---Hg bA1c at 6.6 is excellent- -pt was advised NOT to increase the dosage of either the bagaglar nor the humulin. Pain of le ft shoulder joint 7895406854 1807684 M25.721 [id number] MD [place] Barreto 14 IM [address] [facility] [place] [address] 12/22/2023 14:25:02 12/28/2023 10:37:22 Edema of lower extremity 356613734 R60.0 Type 2 jennifer betes mellitus 05312272 E11.9 Basaglar 27 units ----humuli n 15 units TID with meals Screening for malignant neoplasm of colon 984159059 Z12.11 a cologuard has already been done; pt is at average risk Essential hypertension 48330358 I10 Charcot's arthropathy 35 0182454 M14.671 much improved-- pt has been under the care of a specialist [id number] MD [place] Barreto [address] [facility] [place] [address] 08/16/2024 14:38:02 08/23/2024 10:14:41 Type 2 diabetes mellitus 19784793 E11.9 restart Basaglar 20 units ----humuli n 15 units TID with meals Anemia 317528427 D64.9 Bilateral lower leg edema 973301270 R60.0 Current drinker 557673 F10.90 Ex-smoker 0687230 Z87.89 1 Administra tion of diphtheria, pertussis, and tetanus vaccine 491335144 Z23 Administra tion of SARS-CoV-2 antigen vaccine 729935179 Z23 Influenza immunization advised 945855148 Z71.89 HIV screening 409501441 Z11.4 Morbid obesity 065557767 E66.01 Pt was encouraged to lose wt and improve diet.BMI=4 5.3 [id number] MD Clifford Barreto [address] [facility] [place] [address] 11/22/2024 15:04:29 11/28/2024 15:09:36 Thrombocytopenic disorder 700393026 D69.6 Serum crea tinine above reference range 193059416 R79.89 Type 2 jennifer betes mellitus 27643528 E11.9 restart Basaglar 20 units ----humuli n 15 units TID with meals Anemia 701445761 D64.9 pt has a planned appt with his GI specialist to do a screening colonoscop y; pt is taking an iron supplement Congestive heart failure 53833800 I50.9 under cardiology care Benign ess ential hypertension 0854112 I10 [id number] MD [place] Barreto [address] [facility] [place] [address] 09/27/2024 13:55:22 10/02/2024 13:27:55 Type 2 diabetes mellitus 81161434 E11.9 restart Basaglar 20 units ----humuli n 15 units TID with meals Anemia 144114819 D64.9 pt has a planned appt with his GI specialist to do a screening colonoscop y Congestive heart failure 79671183 I50.9 Serum crea tinine above reference range 889797925 R79.89 Chronic cough 20215054 R 05.3 [id number] Dat Márquez MD [facility] [place] [facility] [address] [place] [address] 11/07/2024 10:03:32 11/09/2024 13:24:59 Congestive heart failure 98887153 I50.9 Morbid obesity 276898735 E66.01 Type 2 jennifer betes mellitus without complication 489651273 E11.9 Health Concerns Section Related Observation LastModified by Organization Detai ls LastModified Time None Recorded Concern Status LastModified by Organization Details LastModified Time None Recorded Advance Directives Directive N: Payers Encounter Date Sequence Insurance Name Policy Number Policy Stark Covered Member ID Stark Member ID Guarantor Name 12/22/2023 1 [facility] ON OR AFTER 05/08/21 (MEDICAID REPLACEMENT - HMO) Blake Smith [id number] Blake Smith 08/16/2024 1 [facility] ON OR AFTER 05/08/21 (MEDICAID REPLACEMENT - HMO) Blake Smith [id number] Blake Smith 09/27/2024 1 [facility] ON OR AFTER 05/08/21 (MEDICAID REPLACEMENT - HMO) Blake Smith [id number] Blake Smith 11/07/2024 1 [facility] ON OR AFTER 05/08/21 (MEDICAID REPLACEMENT - HMO) Blake Smith [id number] Blake Smith 11/22/2024 1 [facility] ON OR AFTER 05/08/21 (MEDICAID REPLACEMENT - HMO) Blake Smith [id number] Blake Smith Notes Date Note Type Note Provider Name and Address Organization Details Recorded Time 12/22/2023 text/html Long-overdue reg ular appt. Flo Grover MD Attn: [address] [place], [address], [facility] 12/27/2023 09:42:25 08/16/2024 text/html Pt presents with sxs as described in the intake note. He describes decreased energy, fatigue, and dependent edema. He continues to work as much as possible. Flo Grover MD Attn: [address] [facility], [place], [address], [facility] 08/22/2024 07:18:14 09/27/2024 text/html As per intake no te, pt is dyspneic, tired, and has swelling in his LEs. Flo Grover MD Attn: [address]ing[address] [facility], [place], [address], [facility] 09/29/2024 13:42:29 11/07/2024 text/html I am seeing the patient as a new consultation from Dr. Grover for recommendations regarding evaluation and management of cardiac etiologies of dyspnea and volume overload. Pleasant 64-year-old accompanied by his spouse. Cardiac risk factors of morbid obesity, type 2 diabetes, previous history of heavy alcohol use noticing increasing episodes of dyspnea on exertion with lower extremity edema. Denies chest pain or pressure. Reports orthopnea. Denies presyncope or syncope. Denies palpitations. Reports being abstinent from alcohol use for approximately 10 days. Reports previous remote history of nicotine use. Denies family history of CAD, CHF premature CAD. Working with Dr. Grover for evaluation of anemia and thrombocytopenia. Diagnostics:Transthor acic echocardiogram 10/25/2024, [facility]: LVEF 60-65%, mild RV dilatation with normal RV function, Diastology not reported, no pulmonary hypertension, no pericardial effusion Labs:09/27/2024: ProBNP 186, BUN 34, creatinine 1.6, sodium 139, potassium 4.9, chloride 107, CO2 22, albumin 3.2, alk phos 146, AST 46, ALT 2310/07/2024: HGB 10.2, WBC 5.4, MCV 101, platelets 66, HB A1c 8.002/10/2024: LDL 82, HDL 61, TG 61, total cholesterol 147 Dat Márquez MD Attn: Accounting[address] [facility], [place], [address], [facility] 11/07/2024 13:31:40 11/22/2024 text/html Guillermo Smith is a 64 yr old male with a PMH of CHF who presents today for a follow-up appointment. 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 His BP has been elevated his last three visits but he has expressed hesitance to add more medications. His last CBC on 09/27/24 showed an abnormal Hgb of 10.0 and a low platelet count of 60. He is unable to schedule a colonoscopy to rule out bleeding until his platelet count is increased. Flo Grover MD Attn: [address] [place], [address], [facility] 11/24/2024 13:11:15
--- OUTSIDE RECORDS SUMMARY | 2025-01-15 14:21 | XMS_ITS | Clinical Summary ---
Author Organization [facility] (Formerly [facility]ark [place] Address [address] [place] [address] Care Team Providers Care Housing Inspector Name Role Phone Flo Russell MD Primary [...] patient's age to complete this topic Insurance [facility] MEDICAID Care Teams Housing Inspector Relationship Specialty Start Date End Date Flo Russell MD [address] [place] [phone] PCP - General Family Practice 02/22/23
--- OUTSIDE RECORDS SUMMARY | 2025-01-15 14:21 | XMS_ITS | Clinical Summary ---
Author Organization [facility] [employer] Address [address] [place] [address] Care Team Providers Care Electrical Superintendent Name Role Phone Flo Russell MD Primary Care Provider [phone] [facility],non-owned Affiliates and Associated Physician Practices is amultiple site organization consisting of ambulatory clinics and hospital sitesin [place], [place], [place] and [place]. This disclosure is being madepursuant to the Care Everywhere program and may not contain all information available regarding this patient. Last updated 18.[facility] Allergies Active Allergy Reactions Criticality Noted Date [...] optimum level for you. Interventions: Care Teams Electrical Superintendent Relationship Specialty Start Date End Date Flo Russell MD [address] [id number] PCP - General 05/04/19
--- NOTE | 2025-01-15 15:37 | P.HP_ITS ---
H&P: HPI History of Present Illness Date/Time: 01/15/25 15:37 Chief Complaint: Extremity edema Narrative: 64-year-old male past medical history of diabetes type 2, hypertension for a newly diagnosed CHF. Patient states that he recently had his medications changed and his doctor's office and they had added on Jardiance. He states that he has had about a 20 lb weight gain over the last 2 months. He says he can only make it to the other side the room before he gets extremely winded and has to sit down. 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 Patient's labs show anemia at 9.4 creatinine of 2.19 with baseline being at 1.1 GFR 31, BNP of 1959. Chest x-ray shows Diffuse interstitial pattern in the lungs, consistent with mild chronic interstitial lung disease and/or mild pulmonary edema. Patient was given 80 mg of Lasix Review of Systems Review of Systems: 12 systems were reviewed and are negativ e except for as per HPI. 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 He has 3 children and is and lives with his . Code status full code Smoking packs per day: 0.5 Smoking cigarettes per day: 10.0 Years smoked: 15 Smoking pack-years: 7.50 Smoking status: Former smoker Second hand tobacco smoke exposure: Yes Alcohol intake: current Drinks per week: 4 Substance use: never Substance use type: does not use Do You Feel Safe in your Home?: Yes Lack of Transportation: No Lack of Food: Never True Current Housing: I Have Housing Concerned About Future Housing: No Difficulty Paying Gas/Electric Bills: YES Difficulty Paying for Meds: No Currently Unemployed: No Education: High School Diploma/GED Difficulty w/ Childcare or Family Care: No Living arrangements: with family Spiritual care concerns: No Meds Home Medications and Allergies Home Medications ?Medication ?Instructions ?Recorded ?Confirmed ?Type insulin glargine 100 unit/mL (3 28 unit subcut HS 01/25/23 01/15/25 History mL) subcutaneous pen (Basaglar KwikPen U-100 Insulin) insulin regular human 100 unit/mL 15 unit subcut ACHS 01/25/23 01/15/25 History injection solution (Humulin R Regular U-100 Insulin) ferrous sulfate 325 mg (65 mg 325 mg PO DAILY 01/15/25 01/15/25 History iron) tablet furosemide 20 mg tablet 20 mg PO BID 01/15/25 01/15/25 History potassium chloride 10 mEq 20 meq PO DAILY 01/15/25 01/15/25 History tablet,extended release Allergies Allergy/AdvReac Type Severity Reaction Status Date / Time oxycodone Allergy Intermediate Itching Verified 04/15/23 14:05 Vital Signs Vital Signs - 24 hr 01/15/25 11:13 01/15/25 11:23 01/15/25 11:29 Temperature 98.2 F Pulse Rate 79 76 Respiratory Rate 20 17 Blood Pressure 168/85 H Pulse Oximetry 97 97 98 Oxygen Delivery Room Air Room Air 01/15/25 11:31 01/15/25 11:53 01/15/25 12:03 Temperature Pulse Rate 74 74 75 Respiratory Rate 17 20 20 Blood Pressure 169/74 H 149/71 H Pulse Oximetry 98 100 96 Oxygen Delivery 01/15/25 12:30 01/15/25 13:22 01/15/25 13:30 Temperature Pulse Rate 73 73 70 Respiratory Rate 17 22 H 17 Blood Pressure 145/66 H Pulse Oximetry 97 99 97 Oxygen Delivery 01/15/25 13:46 01/15/25 14:02 01/15/25 14:17 Temperature Pulse Rate 69 71 74 Respiratory Rate 24 H 16 14 Blood Pressure 131/54 L 130/66 129/63 Pulse Oximetry 99 99 99 Oxygen Delivery Exam Narrative: General: well appearing, appears stated age. HEENT: normocephalic, atraumatic. Mucous membranes moist. EOMI, PERRLA, bilateral sclera anicteric, no conjunctival injection. Neck supple without JVD, lymphadenopathy, or bruit. Respiratory: clear to ascultation bilaterally. No rales/rhonic/wheezes. Cardiovascular: Regular rate and rhythm, normal S1-S2 upon ascultation. No murmurs, rubs, or clicks. PMI is nondisplaced, capillary refill less than 3 second. Abdomen: Pitting edema at to about belly button distended obese, no pulsatile masses, nondistended and nontender. No rebound, no guarding. No CVA tenderness, no hepatosplenomegaly. Bowel sounds present to all four quadrants. No high pitch or tinkling sounds, resonant to percussion. Extremities: No cyanosis, clubbing, Pulses are palpable 2/2. Active ROM to all four extremities. Plus four edema all the way up the thighs Neuro: Alert and orientated x 4. PERRLA. Cranial nerves 2-12 intact without focal deficit. Skin: Warm, dry, and intact, without rash, erythema, or lesion. Psych: pleasant, cooperative, normal speech, normal affect, no hallucinations, no dysarthia H&P: Results Labs Labs: Short CBC 01/15/25 Range/Units 11:35 WBC 5.1 (4.5-10.0) K/mm3 Hgb 9.4 L (14.0-18.0) g/dL Hct 29.5 L (42.0-52.0) % Plt Count 61 L (150-375) k/mm3 BMP 01/15/25 11:35 Sodium 140 Potassium 4.9 Chloride 109 H Carbon Dioxide 24 BUN 35 H D Creatinine 2.19 H Glucose 158 H Calcium 8.7 Liver Function 01/15/25 Range/Units 11:35 Total Bilirubin 1.1 (0.2-1.3) mg/dL AST 40 (17-59) U/L ALT 23 (6-50) U/L Alkaline Phosphatase 185 H (38-126) U/L Albumin 3.4 L (3.5-5.1) g/dL Assessment and Plan Assessment and plan (1) Acute CHF: Code(s): I50.9 - Heart failure, unspecified Status: Acute Assessment and Plan: 80 IV Lasix given the ED Eighty a IV Lasix repeated Echocardiogram pending (2) Anasarca: Code(s): R60.1 - Generalized edema Status: Acute Assessment and Plan: Secondary to above (3) DM2 (diabetes mellitus, type 2): Code(s): E11.9 - Type 2 diabetes mellitus without complications Status: Acute Assessment and Plan: Accu-Cheks a.c. HS SSI and home dose Lantus (4) MARIO (acute kidney injury): Code(s): N17.9 - Acute kidney failure, unspecified Status: Acute Assessment and Plan: No IV hydration due to anasarca and CHF Monitor BMP Avoid other nephrotoxic medications while on high-dose Lasix BMP and CBC in a.m. Quality VTE Prophylaxis VTE prophylaxis: mechanical ordered and pharmacologic ordered Hospitalist MIPS Advance Care Plan I have confirmed that the patient's Advanced Care Plan is present, code status is documented, or surrogate decision maker is listed in patient medical record.: Yes Medication Reconciliation I have utilized all available resources to obtain, update and review the patients current medications (includes all prescriptions, OTC, herbals, cannabis, and nutritional supplements).: Yes
[2025-01-15 16:45] LABS: Glucose Point of Care 107 mg/dl (65-105)
[2025-01-15 21:06] LABS: Glucose Point of Care 143 mg/dl (65-105)
[2025-01-15] MEDS: INSULIN GLARGINE (*BKC) 100 UNITS/ML 28 UNITS SUB-Q (23:10)
[2025-01-16] VITALS (12 sets, daily range): BP systolic 99–145; BP diastolic 61–82; PULSE 72–79; RESP 14–20; TEMP 36.6–37.7; O2SAT 95–97
--- NOTE | 2025-01-16 06:00 | ECHO_ITS ---
Patient Info Name: Blake Smith Age: 64 years : 1960 Gender: Male Ht: 73 in Wt: 374 lbs BSA: 3.04 m2 HR: 87 bpm BP: 117 / 64 mmHg Technical Quality: Good Exam Date: 01/16/2025 8:36 AM Exam Location: Echo Lab Patient Status: Inpatient Admit Date: 01/15/2025 Staff Ordering Physician: Gregg Reza MD Ink Technician: Magi Chavez RDCS Attending Provider: Otilio Gould MD Referring Physician: Libia SAGASTUME; Exam Type: CA echo doppler color flow Study Info Indications - Heart failure Complete two-dimensional, color flow and Doppler transthoracic echocardiogram is performed. Summary 1. Left ventricular chamber dimension is normal. 2. Left ventricular systolic function is normal, estimated at 65-70%. 3. There is mildly increased left ventricular wall thickness. 4. The left ventricular diastolic function is grade I diastolic dysfunction. 5. Right ventricular systolic function is normal. 6. Left atrial chamber dimension is moderately enlarged. 7. Right atrial chamber dimension is moderately enlarged. 8. There is moderate aortic valve calcification. 9. There is moderate to severe aortic valve stenosis with a peak velocity of 407 cm/s, mean gradient of 43 mmHg, and aortic valve area of 1.2 cm2. 10. There is mild aortic valve regurgitation. 11. There is mild to moderate tricuspid valve regurgitation. 12. Pulmonary hypertension, estimated pulmonary arterial systolic pressure is 48 mmHg. Left Ventricle Left ventricular chamber dimension is normal. Left ventricular systolic function is normal, estimated at 65-70%. There is mildly increased left ventricular wall thickness. The left ventricular diastolic function is grade I diastolic dysfunction. Right Ventricle Right ventricular chamber dimension is normal. Right ventricular systolic function is normal. Left Atria Left atrial chamber dimension is moderately enlarged. Right Atria Right atrial chamber dimension is moderately enlarged. Atrial Septum Intact interatrial septum visualized by color flow imaging. Aortic Valve The aortic valve is probable trileaflet. There is moderate to severe aortic valve stenosis with a peak velocity of 407 cm/s, mean gradient of 43 mmHg, and aortic valve area of 1.2 cm2. There is mild aortic valve regurgitation. There is moderate aortic valve calcification. Pulmonic Valve The pulmonic valve is not well visualized. Mitral Valve There is trace mitral valve regurgitation. The mitral valve annulus is moderately calcified. Tricuspid Valve There is mild to moderate tricuspid valve regurgitation. Pulmonary hypertension, estimated pulmonary arterial systolic pressure is 48 mmHg. Pericardium/Pleural There is no pericardial effusion. Inferior Vena Cava Normal inferior vena cava with >50% collapse upon inspiration consistent with normal right atrial pressure, 3 mmHg. Aorta The aortic root size at the sinus of Valsalva is normal. Left Ventricular Outflow Tract Name Value Normal LVOT 2D LVOT Diameter 2.0 cm LVOT Doppler LVOT Peak Gradient 9 mmHg LVOT Mean Gradient 5 mmHg LVOT VTI 37 cm LVOT VTI/AV VTI Ratio 0.4 LVOT Stroke Volume 117 ml LVOT CO 21.0 l/min LVOT CI 6.9 l/min/m2 Mitral Valve Name Value Normal MV Doppler MV Decel [facility] 597 cm/s2 MV PHT 75 ms MV Area (PHT) 2.9 cm2 4.0-5.0 MV Diastolic Function MV E Peak Velocity 153 cm/s MV A Peak Velocity 138 cm/s MV E/A 1.1 MV Decel Time 257 ms MV Annular TDI MV E/e' (Septal) 19.0 <=8.0 MV E/e' (Lateral) 13.2 <=8.0 MV E/e' (Average) 16.1 Tricuspid Valve Name Value Normal TV Regurgitation Doppler TR Peak Velocity 334 cm/s TR Peak Gradient 45 mmHg Estimated PAP/RSVP RA Pressure 3 mmHg <=5 PA Systolic Pressure 48 mmHg <36 RV Systolic Pressure 48 mmHg <36 Aorta Name Value Normal Ascending Aorta Ao Root Diameter (MM) 3.2 cm Ao Root Diam Index (MM) 1.1 cm/m2 Aortic Valve Name Value Normal AV Doppler AV Peak Velocity 407 cm/s AV Peak Gradient 66 mmHg AV Mean Gradient 43 mmHg AV VTI 100 cm AV Area (Cont Eq VTI) 1.2 cm2 >=3.0 AV Area (Cont Eq Jaleel) 1.2 cm2 AV Regurgitation 2D LVOT Area 3.2 cm2 AV Regurgitation Doppler AR Decel Time 2,[address] 121 cm/s2 AR PHT 734 ms Ventricles Name Value Normal LV Dimensions 2D/MM IVS Diastolic Thickness (2D) 1.3 cm 0.6-1.0 LVID Diastole (2D) 5.2 cm 4.2-5.8 LVIW Diastolic Thickness (2D) 1.3 cm 0.6-1.0 LVID Systole (2D) 3.8 cm 2.5-4.0 LVOT Diameter 2.0 cm LV Mass (2D Cubed) 282.16 g 88.00-224.00 LV Mass Index (2D Cubed) 93 g/m2 49-115 Relative Wall Thickness (2D) 0.51 LV Fractional Shortening/Ejection Fraction 2D/MM LV Fractional Shortening (2D) 26 % 25-43 LV EF (2D Teicholz) 51 % 52-72 LV Diastolic Volume (4C MOD) 164 ml LV EF (4C MOD) 71 % LV Diastolic Volume (2C MOD) 154 ml LV EF (2C MOD) 58 % LV Diastolic Volume (BP MOD) 166 ml 62-150 LV Diastolic Volume Index (BP MOD) 54 ml/m2 34-74 LV Systolic Volume (BP MOD) 56 ml 21-61 LV Systolic Volume Index (BP MOD) 18 ml/m2 11-31 LV EF (BP MOD) 66 % 52-72 LV Diastolic Length (4C) 9.7 cm LV Systolic Length (4C) 7.3 cm LV Stroke Volume (4C MOD) 117 ml RV Dimensions 2D/MM RVID Diastole (2D) 5.1 cm 2.5-3.5 Atria Name Value Normal LA Dimensions LA Dimension (MM) 5.0 cm 3.0-4.1 LA Volume (4C A-L) 102 ml LA Volume (BP A-L) 102 ml RA Dimensions RA Area (4C) 25.8 cm2 <=18.0 Report Signatures
[2025-01-16 06:30] LABS: Basophils Percent Auto 0.6 % (0.2-1.2); Eosinophils Absolute Auto 0.3 K/mm3 (0-0.3); Eosinophils Percent Auto 4.8 % (0-4.4); Hematocrit 27.4 % (42.0-52.0); Hemoglobin 8.6 g/dL (14.0-18.0); Immature Granulocyte Absolute 0.03 K/mm3 (0.00-0.031); Immature Granulocyte Percent A 0.6 % (0-0.5); Immature Platelet Fraction Pct 1.5 % (0.9-11.2); Lymphocytes Percent Auto 18.6 % (18.3-44.2); Mean Corpuscular HGB Conc 31.4 g/dl (32-36); Mean Corpuscular Hemoglobin 32.7 pg (26-34); Mean Corpuscular Volume 104.2 fl (80-100); Mean Platelet Volume 10.2 fl (7.4-10.4); Monocytes Absolute Auto 0.6 K/mm3 (0.1-0.6); Monocytes Percent Auto 11.3 % (2.6-8.5); Neutrophils Absolute Auto 3.5 K/mm3 (1.3-6.7); Neutrophils Percent Auto 64.1 % (45.5-73.1); Platelet Count Result 57 k/mm3 (150-375); Red Blood Count 2.63 M/mm3 (4.6-6.20); Red Cell Distribution Width 13.8 % (11.5-14.5); White Blood Count 5.4 K/mm3 (4.5-10.0)
[2025-01-16 06:38] LABS: Anion Gap 6 mmol/L (4-12); Blood Urea Nitrogen 38 mg/dL (9-20); Calcium 8.7 mg/dL (8.4-10.2); Carbon Dioxide 25 mmol/L (22-30); Chloride 108 mmol/L (98-107); Estimated CRCL calculation 56 ml/min; Estimated Glomerular Filt Rate 34; Glucose 105 mg/dL (65-110); Potassium 4.5 mmol/L (3.4-5.0); Sodium 139 mmol/L (137-145)
[2025-01-16 08:15] LABS: Glucose Point of Care 100 mg/dl (65-105)
[2025-01-16] MEDS: FUROSEMIDE INJ 40 MG/4 ML VIAL IV PUSH ×2 (08:55→17:30)
--- NOTE | 2025-01-16 09:14 | P.CDI_ITS ---
CDI Query Clarification Request 1)Please specify type and acuity of heart failure if known. Acute * Chronic * Acute on Chronic * Unknown * Systolic * Diastolic * Combined Systolic and Diastolic * Unknown 2)Patient with a BMI of 49.4 please provide a diagnosis to accompany this finding: * Overweight * Obesity * Morbid Obesity * Other/Unknown The medical chart reflects the following: Chief Complaint: Extremity edema Narrative: 64-year-old male past medical history of diabetes type 2, hypertension for a newly diagnosed CHF. Patient states that he recently had his medications changed and his doctor's office and they had added on Jardiance. He states that he has had about a 20 lb weight gain over the last 2 months. He says he can only make it to the other side the room before he gets extremely winded and has to sit down. 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 (1) Acute CHF: Code(s): I50.9 - Heart failure, unspecified Status: Acute Assessment and Plan: 80 IV Lasix given the ED Eighty a IV Lasix repeated Echocardiogram pending BNP: 1959
[2025-01-16 11:48] LABS: Glucose Point of Care 185 mg/dl (65-105)
[2025-01-16 14:26] LABS: Add Urine Microscopic? YES; Appearance Urine Clear (Clear); Bacteria Urine None Seen /hpf; Bilirubin Urine Negative (Negative); Blood Urine 2+ (Negative); Color Urine Yellow (Yellow); Glucose Urine UA 2+ mg/dL (Negative); Ketones Urine Negative (Negative); Leukocyte Esterase Ur Negative LEU/UL (Negative); Nitrate Urine Negative (Negative); Non Pathogenic Casts 0-2; Protein Urine Trace mg/dL (Negative); RBC Urine 21-50 /hpf (0-2); Specific Grav Ur 1.009 (1.001-1.035); Squamous Epithelial Cell Urine None Seen /hpf (Few); Urobilinogen Urine 0.2 mg/dL (<2.0); WBC Urine 0-5 /hpf (0-3); pH Urine 5.5 (5.0-9.0)
--- NOTE | 2025-01-16 15:53 | P.PNIM_ITS ---
Progress Note: A&P Assessment and Plan (1) Acute CHF: Code(s): I50.9 - Heart failure, unspecified Status: Acute Assessment and Plan: 80 IV Lasix given the ED Eighty a IV Lasix repeated Echocardiogram pending (2) Anasarca: Code(s): R60.1 - Generalized edema Status: Acute Assessment and Plan: Secondary to above (3) DM2 (diabetes mellitus, type 2): Code(s): E11.9 - Type 2 diabetes mellitus without complications Status: Acute Assessment and Plan: Accu-Cheks a.c. HS SSI and home dose Lantus (4) MARIO (acute kidney injury): Code(s): N17.9 - Acute kidney failure, unspecified Status: Acute Assessment and Plan: No IV hydration due to anasarca and CHF Monitor BMP Avoid other nephrotoxic medications while on high-dose Lasix BMP and CBC in a.m. Plan Patient presented with complaint of shortness of breath and lower extremity edema suspect patient has a congestive heart failure patient is being diuresed cardiac echo showed preserved LV function with ejection fraction of 65% and grade 1 diastolic dysfunction suggesting patient has acute on chronic diastolic congestive heart failure, will continue to diurese the patient and monitor electrolytes and patient kidney function. Patient also has a thrombocytopenia patient is seen by utility pipe layer outpatient workup is in progress, there is no complaint bleeding or bruising will continue to monitor platelets. Subjective Date/time seen: 01/16/25 15:53 Interval history: Extremity edema Narrative: 64-year-old male past medical history of diabetes type 2, hypertension for a newly diagnosed CHF. Patient states that he recently had his medications changed and his doctor's office and they had added on Jardiance. He states that he has had about a 20 lb weight gain over the last 2 months. He says he can only make it to the other side the room before he gets extremely winded and has to sit down. 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 Patient presented with complaint of shortness of breath and lower extremity edema suspect patient has a congestive heart failure patient is being diuresed cardiac echo showed preserved LV function with ejection fraction of 65% and grade 1 diastolic dysfunction suggesting patient has acute on chronic diastolic congestive heart failure, will continue to diurese the patient and monitor electrolytes and patient kidney function. Patient also has a thrombocytopenia patient is seen by utility pipe layer outpatient workup is in progress, there is no complaint bleeding or bruising will continue to monitor platelets. Review of Systems Review of Systems: 12 systems were reviewed and are negativ e except for as per HPI. Exam Narrative: Morbidly obese Patient is comfortable, NAD HEENT: eyes are clear and none icteric LUNGS:CTA HEART: RR S1S2 ABD: BS+, Soft and nontender Lower extremities: no edema SKIN: nonjaundiced Neuro: grossly intact. Objective Data Vital Signs Vital Signs: Vital Signs - 24 hr 01/15/25 19:35 01/15/25 20:00 01/15/25 20:00 Temperature 37.1 C Pulse Rate 74 81 81 Respiratory Rate 14 20 Blood Pressure 135/61 Pulse Oximetry 99 96 Oxygen Delivery Room Air 01/16/25 00:00 01/16/25 00:00 01/16/25 04:00 Temperature 36.6 C 36.6 C Pulse Rate 79 77 72 Respiratory Rate 20 16 Blood Pressure 120/61 117/64 Pulse Oximetry 97 96 Oxygen Delivery 01/16/25 04:00 01/16/25 08:00 01/16/25 08:55 Temperature Pulse Rate 74 74 Respiratory Rate Blood Pressure Pulse Oximetry Oxygen Delivery Room Air 01/16/25 12:00 01/16/25 14:00 Temperature 37.7 C H Pulse Rate 74 73 Respiratory Rate 18 Blood Pressure 99/72 L Pulse Oximetry 95 Oxygen Delivery Intake/Output Intake/Output: Intake & Output 01/13/25 01/15/25 01/15/25 01/16/25 23:59 00:59 23:59 23:59 Intake Total 240 1500 Output Total 3475 2800 Balance -3238 -2680 Meds/Results Medications: Active Medications Generic Name Dose Route Start Last Admin Trade Name Freq PRN Reason Stop Dose Admin Acetaminophen 650 mg 01/15/25 15:43 Acetaminophen 325 Mg Tablet PO Q4H PRN Mild Pain (1-3) or Fever Dextrose 12.5 gm 01/15/25 15:43 Dextrose 50% 25 Gm/50 Ml Syringe IV PUSH PRN PRN Hypoglycemia Protocol Furosemide 40 mg 01/16/25 09:00 01/16/25 08:55 Furosemide Inj 40 Mg/4 Ml Vial IV PUSH 40 mg BID VIKA Administration Glucagon 1 mg 01/15/25 15:43 Glucagon For Inj 1 Mg Vial IM PRN PRN Hypoglycemia Protocol Glucose 15 gm 01/15/25 15:43 Glucose Oral Gel 15 Gm Of Glucse In 37.5 Gm Tube PO PRN PRN Hypoglycemia Protocol Dextrose 1,000 mls @ 100 mls/hr 01/15/25 15:43 Dextrose 5% 1,000 Ml IVPB PRN PRN Hypoglycemia Protocol Insulin Aspart 2 - 5 units 01/15/25 17:00 01/16/25 11:47 Insulin Aspart (*Bkc) 100 Units/Ml SUB-Q Not Given TIDWM VIKA Protocol Insulin Aspart 1 - 2 units 01/15/25 21:00 01/15/25 21:00 Insulin Aspart (*Bkc) 100 Units/Ml SUB-Q Not Given HS VIKA Protocol Insulin Glargine 28 units 01/15/25 22:40 01/15/25 23:10 Insulin Glargine (*Bkc) 100 Units/Ml SUB-Q 28 units HS VIKA Administration Perflutren Lipid Microsphere 0 ml 01/15/25 13:50 Perflutren Lipid Microspheres 1.5 Ml Vial Diluted To 10 Ml Total Volume IV PUSH 01/18/25 13:51 ONCE PRN adequate visualization Protocol Radiology Results: ITS Impressions Chest X-Ray 01/15/25 12:18 IMPRESSION: 1. Diffuse interstitial pattern in the lungs, consistent with mild chronic interstitial lung disease and/or mild pulmonary edema. Labs Labs: Laboratory Results - last 24 hr 01/15/25 01/15/25 01/16/25 16:41 21:01 06:08 WBC 5.4 RBC 2.63 L Hgb 8.6 L Hct 27.4 L MCV 104.2 H MCH 32.7 MCHC 31.4 L RDW 13.8 Plt Count 57 L MPV 10.2 Immature Gran % (Auto) 0.6 H Neut % (Auto) 64.1 Lymph % (Auto) 18.6 Clay % (Auto) 11.3 H Eos % (Auto) 4.8 H Baso % (Auto) 0.6 Lymph # (Auto) 1.00 Clay # (Auto) 0.6 Eos # (Auto) 0.3 Baso # (Auto) 0.0 Abs Immat Gran (auto) 0.03 Absolute Neuts (auto) 3.5 Absolute Nucleated RBC 0.000 Nucleated RBC % 0.0 % Immature Plt Fraction 1.5 Sodium 139 Potassium 4.5 Chloride 108 H Carbon Dioxide 25 Anion Gap 6 BUN 38 H Creatinine 2.02 H Estim Creat Clear Calc 56 Estimated GFR 34 L Glucose 105 POC Capillary Glucose 107 H 143 H Calcium 8.7 Urine Color Urine Appearance Urine pH Ur Specific [facility] Urine Protein Urine Glucose (UA) Urine Ketones Ur Blood (Man) Urine Nitrate Urine Bilirubin Urine Urobilinogen Ur Leukocyte Esterase Urine RBC Urine WBC Ur Squamous Epith Cells Urine Bacteria Urine Casts 01/16/25 01/16/25 01/16/25 08:13 11:44 13:54 WBC RBC Hgb Hct MCV MCH MCHC RDW Plt Count MPV Immature Gran % (Auto) Neut % (Auto) Lymph % (Auto) [place] % (Auto) Eos % (Auto) Baso % (Auto) Lymph # (Auto) [place] # (Auto) Eos # (Auto) Baso # (Auto) Abs Immat Gran (auto) Absolute Neuts (auto) Absolute Nucleated RBC Nucleated RBC % % Immature Plt Fraction Sodium Potassium Chloride Carbon Dioxide Anion Gap BUN Creatinine Estim Creat Clear Calc Estimated GFR Glucose POC Capillary Glucose 100 185 H Calcium Urine Color Yellow Urine Appearance Clear Urine pH 5.5 Ur Specific [facility] 1.009 Urine Protein Trace Urine Glucose (UA) 2+ H Urine Ketones Negative Ur Blood (Man) 2+ H Urine Nitrate Negative Urine Bilirubin Negative Urine Urobilinogen 0.2 Ur Leukocyte Esterase Negative Urine RBC 21-50 H Urine WBC 0-5 Ur Squamous Epith Cells None seen Urine Bacteria None seen Urine Casts 0-2 Quality VTE Prophylaxis VTE prophylaxis: mechanical ordered and pharmacologic ordered
[2025-01-16 16:49] LABS: Glucose Point of Care 139 mg/dl (65-105)
[2025-01-16] MEDS: ACETAMINOPHEN 325 MG TABLET 650 MG PO (17:30)
[2025-01-16 20:13] LABS: Glucose Point of Care 173 mg/dl (65-105)
[2025-01-16] MEDS: INSULIN GLARGINE (*BKC) 100 UNITS/ML 28 UNITS SUB-Q (20:53)
[2025-01-17 00:02] VITALS: PULSE 70
[2025-01-17 04:02] VITALS: PULSE 75
[2025-01-17 05:28] VITALS: BP 138/72; PULSE 75; RESP 16; TEMP 36.3; O2SAT 94
[2025-01-17 06:37] LABS: Immature Platelet Fraction Pct 1.7 % (0.9-11.2); Mean Corpuscular HGB Conc 32.1 g/dl (32-36); Mean Corpuscular Hemoglobin 33.6 pg (26-34); Mean Corpuscular Volume 104.5 fl (80-100); Mean Platelet Volume 9.8 fl (7.4-10.4); Platelet Count Result 59 k/mm3 (150-375); Red Blood Count 2.68 M/mm3 (4.6-6.20); Red Cell Distribution Width 13.9 % (11.5-14.5); White Blood Count 4.8 K/mm3 (4.5-10.0)
[2025-01-17 06:43] LABS: Anion Gap 5 mmol/L (4-12); Blood Urea Nitrogen 37 mg/dL (9-20); Calcium 8.9 mg/dL (8.4-10.2); Carbon Dioxide 28 mmol/L (22-30); Chloride 108 mmol/L (98-107); Estimated CRCL calculation 58 ml/min; Estimated Glomerular Filt Rate 37; Glucose 93 mg/dL (65-110); Magnesium 1.9 mg/dL (1.6-2.3); Potassium 4.2 mmol/L (3.4-5.0); Sodium 141 mmol/L (137-145)
[2025-01-17 08:00] VITALS: PULSE 75
[2025-01-17 08:29] LABS: Glucose Point of Care 95 mg/dl (65-105)
[2025-01-17] MEDS: FUROSEMIDE INJ 40 MG/4 ML VIAL IV PUSH (09:22)
--- NOTE | 2025-01-17 10:35 | P.DS_ITS ---
DS: Summary Time Spent with Patient Time attestation: Total time spent providing and/or coordinating discharge services: DS: Data Data Completed and Pending Labs on day of discharge: Labs from last 24 hours 01/17/25 01/17/25 01/16/25 07:50 06:25 19:59 WBC 4.8 RBC 2.68 L Hgb 9.0 L Hct 28.0 L MCV 104.5 H MCH 33.6 MCHC 32.1 RDW 13.9 Plt Count 59 L MPV 9.8 % Immature Plt Fraction 1.7 Sodium 141 Potassium 4.2 Chloride 108 H Carbon Dioxide 28 Anion Gap 5 BUN 37 H Creatinine 1.87 H Estim Creat Clear Calc 58 Estimated GFR 37 L Glucose 93 POC Capillary Glucose 95 173 H Calcium 8.9 Magnesium 1.9 Urine Color Urine Appearance Urine pH Ur Specific [place] Urine Protein Urine Glucose (UA) Urine Ketones Ur Blood (Man) Urine Nitrate Urine Bilirubin Urine Urobilinogen Ur Leukocyte Esterase Urine RBC Urine WBC Ur Squamous Epith Cells Urine Bacteria Urine Casts 01/16/25 01/16/25 01/16/25 16:47 13:54 11:44 WBC RBC Hgb Hct MCV MCH MCHC RDW Plt Count MPV % Immature Plt Fraction Sodium Potassium Chloride Carbon Dioxide Anion Gap BUN Creatinine Estim Creat Clear Calc Estimated GFR Glucose POC Capillary Glucose 139 H 185 H Calcium Magnesium Urine Color Yellow Urine Appearance Clear Urine pH 5.5 Ur Specific [place] 1.009 Urine Protein Trace Urine Glucose (UA) 2+ H Urine Ketones Negative Ur Blood (Man) 2+ H Urine Nitrate Negative Urine Bilirubin Negative Urine Urobilinogen 0.2 Ur Leukocyte Esterase Negative Urine RBC 21-50 H Urine WBC 0-5 Ur Squamous Epith Cells None seen Urine Bacteria None seen Urine Casts 0-2 Discharge Plan Discharge Attending physician on discharge: Otilio Gould Discharging Clinician: Otilio Gould Patient Disposition: Home, Self-Care Activity: as tolerated Diet: heart healthy and low sodium Discharge Instructions: patient is instructed to take his medication as given, and follow up with his primary care provider as soon as possible, patient is instructed if any symptoms redevelop to go to nearest ER. Patient Instructions: Antibiotic Form Patient Language: Frisian Stand Alone Forms: General Discharge Information Follow-up/Referrals: Drew,Flo Callahan MD [Primary Care Provider] - Discharge Medications: Continued Humulin R Regular U-100 Insuln 100 unit/mL solution 15 unit subcut ACHS insulin glargine [Basaglar KwikPen U-100 Insulin] 100 unit/mL (3 mL) insulin pen 28 unit SUBCUT HS potassium chloride 10 mEq tablet extended release 20 meq PO DAILY furosemide 20 mg tablet 20 mg PO BID ferrous sulfate 325 mg (65 mg iron) tablet 325 mg PO DAILY Date of admission: 01/15/25 16:57 Primary Care Provider: Drew,Flo Callahan Admitting Provider: Otilio Gould Attending physician on admission: Otilio Gould Condition: Stable
[2025-01-17 11:44] LABS: Glucose Point of Care 141 mg/dl (65-105)
[2025-01-17 12:00] VITALS: PULSE 74
--- NOTE | 2025-01-17 13:35 | P.CDI_ITS ---
CDI Query Clarification Request Patient with a BMI of 46.8 please provide a diagnosis to accompany this finding: * Overweight * Obesity * Morbid Obesity * Other/Unknown
--- NOTE | 2025-01-17 13:35 | WPDCDIQUERY2 ---
CDI Query Clarification Request Patient with a BMI of 46.8 please provide a diagnosis to accompany this finding: Overweight Obesity Morbid Obesity Other/Unknown
== END 2025-01-17 13:30 | disposition home or self-care (01) | DRG 194 ==
LOC: ANHED 14:18 → ANH3MEDSUR 14:50
PROVIDERS: Emergency Medicine; Nurse Practitioner Gerontology; Admitting Provider Family Medicine; Emergency Provider Student in an Organized Health Care Education/Training Program; PCP Family Medicine; Visit Provider Family Medicine
DX: I11.0 Hypertensive heart disease with heart failure (principal); N17.9 Acute kidney failure, unspecified; I50.33 Acute on chronic diastolic (congestive) heart failure; D64.9 Anemia, unspecified; D69.6 Thrombocytopenia, unspecified; E66.01 Morbid (severe) obesity due to excess calories; Z87.891 Personal history of nicotine dependence; Z68.42 Body mass index [BMI] 45.0-49.9, adult
CPT/HCPCS: 36415; 71046; 80048; 80053; 81001; 82948; 83735; 83880; 85025; 85027; 85055; 93005; 93306; 96374; 96375; 99285; A9270; G0378; G0379; J1815; J1940

== ENCOUNTER 2025-10-04 05:01 | Inpatient (IN) | payer OTHER, SELFPAY ==
[2025-10-04] VITALS (97 sets, daily range): BP systolic 62–161; BP diastolic 35–81; PULSE 89–126; RESP 10–30; TEMP 36.1–39.3; O2SAT 88–100; BMI 45.8
--- NOTE | ~2025-10-04 | XR_ITS ---
EXAMINATION: XR chest 1V portable DATE: 10/15/2025 18:05 INDICATION: Congestive heart failure. TECHNIQUE: A single frontal view of the chest was obtained. COMPARISON: Chest x-ray dated 10/13/2025 FINDINGS: Cardiomegaly and atherosclerotic aorta. Partial resolution of airspace opacities in the mid and lower lung zones compared with 10/13/2025. No pleural effusion is seen. IMPRESSION: 1. Partial resolution of patchy pulmonary edema in the mid and lower lung gutiérrez compared with 10/13/2025. Cardiomegaly and atherosclerotic aorta. Reviewed, dictated and finalized at location T. DEVELOPER IMPRESSION: 1. Partial resolution of patchy pulmonary edema in the mid and lower lung field s compared with 10/13/2025. Cardiomegaly and atherosclerotic aorta.
--- NOTE | ~2025-10-04 | US_ITS ---
US renal BI 10/05/2025 13:28 Procedure: Realtime transabdominal ultrasound of the kidneys and bladder. Indication: Acute on chronic renal disease. Comparison: No prior studies for comparison. Findings: Renal echotexture is normal bilaterally without hydronephrosis, contour deforming mass or renal calculus. The right kidney measures 11.4 cm and left kidney measures 11 cm. There is a catheter in the bladder limiting evaluation of the bladder. Incidental note is made of a enlarged spleen measu ring 25 cm. There is ascites in the left upper abdomen. Impression: 1: Unremarkable renal ultrasound. No stones, masses or hydronephrosis. 2: Splenomegaly. 3: Ascites. Reviewed, dictated and finalized at location I. ROBE COORDINATOR Impression: 1: Unremarkable renal ultrasound. No stones, masses or hydronephrosis. 2: Splenomegaly. 3: Ascites.
--- NOTE | ~2025-10-04 | XR_ITS ---
Examination: XR chest 1V portable Clinical History: respiratory failure, pna Comparison: 1 day prior Technique: Portable AP Findings: Cardiomegaly. Mild worsening diffuse scattered airspace disease. Persistent significant bibasilar atelectasis and airspace disease. Small pleural effusions not excluded. No acute bony abnormality. IMPRESSION: 1. Worsening pulmonary edema and/or multifocal airspace disease. 2. Persistent significant bibasilar atelectasis and/or airspace disease. 3. Pleural effusions not excluded. Reviewed, dictated and finalized at location R. CAL RECORD TECHNICIAN
--- NOTE | ~2025-10-04 | XR_ITS ---
EXAMINATION: XR chest 1V portable DATE: 10/12/2025 05:24 INDICATION: Respiratory failure. Pneumonia. TECHNIQUE: frontal view of the chest was obtained. COMPARISON: Chest radiograph dated 10/11/2025 FINDINGS: Endotracheal tube tip 4.5 cm above the kathie. Nasogastric tube with proximal side-port below the left hemidiaphragm and distal tip collimated off the study. Right internal jugular central venous catheter with distal tip at the midsuperior vena cava. Peripheral and lower lung predominant interstitial and airspace opacities in both lungs consistent with mild pulmonary edema and/or pneumonia. The cardiomediastinal silhouette is normal. Retrocardiac consolidation which could represent associated atelectasis or pneumonia. No pneumothorax. Heart size is normal. IMPRESSION: 1. Lines and tubes in expected position. 2. Bilateral pulmonary edema and/or pneumonia. 3. Small left pleural effusion. Reviewed, dictated and finalized at location A. ROOM SUPERVISOR
--- NOTE | ~2025-10-04 | XR_ITS ---
Examination: XR chest 1V portable Clinical History: Acute respiratory failure, pneumonia, CHF Comparison: 10/06/2025 Technique: Portable AP Findings: ET tube, NG tube, right neck central line. Cardiomegaly. Worsening diffuse interstitial markings. Persistent retrocardiac opacity. No acute bony abnormality. IMPRESSION: 1. Worsening interstitial pulmonary edema and/or pneumonitis. 2. Persistent left lower lobe collapse. Superimposed airspace disease and/or effusion not excluded. Reviewed, dictated and finalized at location R. MANAGER IMPRESSION: 1. Worsening interstitial pulmonary edema and/or pneumonitis. 2. Persistent left lower lobe collapse. Superimposed airspace disease and/or e ffusion not excluded.
--- NOTE | ~2025-10-04 | XR_ITS ---
XR chest 1V portable 10/09/2025 05:31 Indication: Acute respiratory failure Procedure: AP portable chest Comparison: Comparison to multiple prior studies sequentially, with oldest reviewed study dated 10/05/2025. Findings: Endotracheal tube tip 5.1 cm above the kathie. NG tube in the stomach. Right IJ central line in the SVC. Persistent bilateral airspace disease. Unchanged pleural effusions. No pneumothorax. Impression: 1: Stable bilateral airspace disease most likely edema. Superimposed pneumonia cannot be excluded. 2: Small pleural effusions. Reviewed, dictated and finalized at location I. E PURCHASE DRIVER Impression: 1: Stable bilateral airspace disease most likely edema. Superimposed pneumonia cannot be excluded. 2: Small pleural effusions.
--- NOTE | ~2025-10-04 | XR_ITS ---
Examination: XR chest 1V portable Clinical History: Acute respiratory failure, pneumonia, CHF Comparison: 1 day prior Technique: Portable AP Findings: ET tube, NG tube, right neck central line. Cardiomegaly. Persistent diffuse interstitial markings. Left hemidiaphragm poorly seen. No acute bony abnormality. IMPRESSION: 1. No significant change. 2. Persistent interstitial pulmonary edema, chronic interstitial changes, and/or multifocal airspace disease. Reviewed, dictated and finalized at location R. P LEADER SEMICONDUCTOR PROCESSING IMPRESSION: 1. No significant change. 2. Persistent interstitial pulmonary edema, chronic interstitial changes, and/ or multifocal airspace disease.
--- NOTE | ~2025-10-04 | XR_ITS ---
EXAMINATION: XR chest 1V portable COMPARISON: No comparisons available. HISTORY: Acute respiratory failure, pneumonia, CHF FINDINGS: Moderate pulmonary venous congestion. Small basilar infiltrates. No pneumothorax. Moderate cardiomegaly. Mediastinal and hilar contours are within normal limits. Bony thorax no acute abnormality. Miscellaneous: ETT 3 cm above the kathie, nasogastric tube tip not visualized but below the diaphragm, right central line in the SVC. Impression: CHF. Superimposed probable pneumonia. The findings appear relatively unchanged Reviewed, dictated and finalized at location P. OVER RIG OPERATOR Impression: CHF. Superimposed probable pneumonia. The findings appear relatively unchanged
--- NOTE | ~2025-10-04 | XR_ITS ---
Examination: XR chest 1V portable Clinical History: R IJ insertion Comparison: Earlier same day Technique: Portable AP Findings: Right IJ central line. Heart size normal. No pneumothorax. Persistent interstitial markings. No acute bony abnormality. IMPRESSION: 1. No pneumothorax after central line placement. 2. Central line tip upper SVC. Reviewed, dictated and finalized at location R. OMER LOGISTICS MANAGER
--- NOTE | ~2025-10-04 | XR_ITS ---
EXAMINATION: XR chest 1V portable COMPARISON: No comparisons available. HISTORY: s/p intubation FINDINGS: Moderate pulmonary venous congestion. Bilateral infiltrates. No pneumothorax. Moderate cardiomegaly. Mediastinal and hilar contours are within normal limits. Bony thorax no acute abnormality. Miscellaneous: ETT 2 cm above the kathie, right central line in the SVC, nasogastric tube below the diaphragm. Impression: CHF. Probable superimposed recommended. The findings are progressed compared to the previous study. Intubation as above Reviewed, dictated and finalized at location P. E CEMENT MOULDER Impression: CHF. Probable superimposed recommended. The findings are progressed compared to the previous study. Intubation as above
--- NOTE | ~2025-10-04 | CT_ITS ---
CT HEAD NON-CONTRAST Clinical History: ams Comparison: None Technique: Unenhanced axial images skull base to vertex Coronal, sagittal reformats CT images acquired with automatic exposure control for dose reduction DLP: 2497 mGy-cm Findings: Severe streak artifact. Sulci, ventricles: Unremarkable. No intracerebral hemorrhage. No evidence acute territorial infarct. No mass effect, midline shift. Bony calvarium intact. Visualized paranasal sinuses: Clear. Mastoid air cells: Clear. IMPRESSION: 1. No acute intracranial findings. Reviewed, dictated and finalized at location R. RY MANAGER
--- NOTE | ~2025-10-04 | XR_ITS ---
EXAMINATION: XR chest 1V portable COMPARISON: No comparisons available. HISTORY: Acute respiratory failure FINDINGS: Moderate pulmonary venous congestion. Basilar infiltrates and effusions. No pneumothorax. Moderate cardiomegaly. Mediastinal and hilar contours are within normal limits. Bony thorax no acute abnormality. Miscellaneous: ET tube 2 cm above the kathie, nasogastric tube below the diaphragm, right central line in the SVC. Impression: CHF with superimposed probable pneumonia. The findings are markedly progressed Reviewed, dictated and finalized at location P. INE CLOTH TRIMMER Impression: CHF with superimposed probable pneumonia. The findings are markedly progressed
--- NOTE | ~2025-10-04 | XR_ITS ---
EXAMINATION: XR chest 1V portable COMPARISON: No comparisons available. HISTORY: Respiratory failure FINDINGS: Moderate pulmonary venous congestion. Basilar small infiltrates and effusions. No pneumothorax. Moderate cardiomegaly. Mediastinal and hilar contours are within normal limits. Bony thorax no acute abnormality. Miscellaneous: ET tube 4 cm above the kathie, nasogastric tube in the stomach, right central line in the SVC. Impression: CHF. Findings appear relatively unchanged. Reviewed, dictated and finalized at location P. SCIENTIST Impression: CHF. Findings appear relatively unchanged.
--- NOTE | ~2025-10-04 | XR_ITS ---
XR chest 1V portable 10/05/2025 05:39 Indication: Acute respiratory failure. Pneumonia. CHF. Procedure: AP portable chest Comparison: Comparison to multiple prior studies sequentially, with oldest reviewed study dated 01/15/2025. Findings: Endotracheal tube tip 6.3 cm in above the kathie. Right IJ central line tip in the SVC. Cardiomegaly. Persistent pulmonary edema. No significant effusion or pneumothorax. Impression: 1: Cardiomegaly with persistent pulmonary edema. Reviewed, dictated and finalized at location I. [employer] Impression: 1: Cardiomegaly with persistent pulmonary edema.
--- NOTE | ~2025-10-04 | XR_ITS ---
Examination: XR chest 1V Clinical History: Fever Comparison: 01/15/2025 Technique: Portable AP Findings: Heart size enlarged. Chronic peripheral interstitial markings. No focal airspace disease. No acute bony abnormality. IMPRESSION: 1. No acute cardiopulmonary findings given portable technique. 2. Probable pulmonary fibrosis. Reviewed, dictated and finalized at location R. ING STATION ATTENDANT
--- NOTE | ~2025-10-04 | CT_ITS ---
CHEST ABDOMEN PELVIS WITH CONTRAST CLINICAL HISTORY: Sepsis, unknown origin . COMPARISON: CT abdomen and pelvis 04/02/2023 TECHNIQUE: Helical CT performed from thoracic inlet to symphysis pubis IV contrast information not listed in PACS Coronal, sagittal reformats. Multi planar MIPS CT images acquired with automatic exposure control for dose reduction DLP: 2006 mGy-cm FINDINGS: CHEST- Lungs/Pleura: Interlobular septal thickening. Small right pleural effusion. Thoracic Aorta: No dissection. No aneurysm. Pulmonary arteries: Normal caliber. Heart: Cardiomegaly. Tracheobronchial tree: Patent. Nodes: Multiple mediastinal nodes, not pathologically enlarged. Bones: No acute bony abnormality. Soft tissues: Gynecomastia. ABDOMEN/PELVIS- Liver: Cirrhosis. Gallbladder: Stone. Spleen: Enlarged. Pancreas: Unremarkable. Adrenal glands: Unremarkable. Kidneys: Right kidney- No hydronephrosis. No renal stones. Left kidney- No hydronephrosis. No renal stones. Distal esophagus/stomach: Unremarkable. Small bowel loops: Normal caliber and wall thickness. Colon: Wall thickening hepatic flexure. Normal RLQ appendix. Nodes: No enlarged nodes. Small iliac chain and inguinal nodes, not pathologically enlarged. Peritoneum: Small scattered ascites. No free air. Urinary bladder: Unremarkable. Prostate: Unremarkable. Bones: No acute bony abnormality. Soft tissues: Lower abdominal wall skin thickening or cellulitis. Aorta: No aneurysm or dissection. IVC: Unremarkable. Main portal vein/SMV/splenic vein: Patent. IMPRESSION: CHEST- 1. Interstitial pulmonary edema and small right pleural effusion. 2. Superimposed pneumonitis or interstitial lung disease not excluded. ABDOMEN/PELVIS- 1. Colonic hepatic flexure wall thickening. Colitis and/or malignancy. 2. Additional findings as above. Reviewed, dictated and finalized at location R. [employer] BOARDS
--- NOTE | 2025-10-04 05:12 | ECG_ITS ---
Test Date: 2025-10-04 05:16:45 Measurements Intervals [place] Rate: 118 P: 0 SD: 0 QRS: -30 QRSD: 101 T: 80 QT: 307 QTc: 431 Interpretive Statements SINUS TACHYCARDIA INFERIOR MYOCARDIAL INFARCTION [40+ ms Q WAVE AND/OR ST/T ABNORMALITY IN II/aVF], OF INDETERMINATE AGE ABNORMAL ECG Compared to ECG 01/15/2025 11:25:43 Myocardial infarct finding now present Electronically Signed On 10-04-2025 08:52:57 CHEMICAL TREATMENT OPERATOR by Pineda Duran M.D.
--- NOTE | 2025-10-04 05:38 | ED.FEVER ---
HPI - Fever General Chief Complaint: Fever <Gregg Reza MD - Last Filed: 10/04/25 19:21> Stated Complaint: FEVER, SOB, AMS <Gregg Reza MD - Last Filed: 10/04/25 19:21> Time Seen by Provider: 10/04/25 05:11 <Gregg Reza MD - Last Filed: 10/04/25 19:21> History of Present Illness HPI Narrative: 65-year-old male with a history of CHF, diabetes, BPH, hypertension presenting to the emergency department today for difficulty in breathing, weakness, fever, tachycardia. EMS called a code sepsis from the household based on vital signs and physical exam. Patient was in respiratory distress and breathing heavy, 89% on room air, found on the ground reportedly altered and not able to get up. Patient on arrival is awake alert oriented, answering all my questions. Not altered but does appear in distress, febrile, tachycardic and tachypneic. Requiring supplemental oxygen for assistance. Hypertensive with soft diastolics. Does appear very dehydrated and dry. Appears to be chronically edematous with tree trunk appearing legs and body wall edema also noted on previous documentation in the EMR. Patient states he has not been feeling well but not giving us any significant complaints such as chest pain, abdominal pain, nausea, vomiting, diarrhea. No injuries reported. He states he just does not feel well. No sick contacts at home. No recent hospitalizations per patient <Gregg Reza MD - Last Filed: 10/04/25 19:21> Related Data Home Medications: Home Medications ?Medication ?Instructions ?Recorded ?Confirmed ?Last Taken ?Type insulin glargine 100 unit/mL (3 28 unit subcut HS 01/25/23 10/04/25 01/14/25 History mL) subcutaneous pen (Basaglar KwikPen U-100 Insulin) Held on 10/04/25. Instructions: Patient no longer taking insulin regular human 100 unit/mL 15 unit subcut ACHS 01/25/23 10/04/25 10/03/25 History injection solution (Humulin R Regular U-100 Insulin) ferrous sulfate 325 mg (65 mg 325 mg PO DAILY 01/15/25 10/04/25 10/03/25 History iron) tablet furosemide 20 mg tablet 40 mg PO DAILY 01/15/25 10/04/25 10/03/25 History potassium chloride 10 mEq 20 meq PO DAILY 01/15/25 10/04/25 01/14/25 History tablet,extended release Held on 10/04/25. Instructions: Patient no longer taking carvedilol 3.125 mg tablet 3.125 mg PO Q12H 10/04/25 10/04/25 10/03/25 History <Gregg Reza MD - Last Filed: 10/04/25 19:21> Allergies/Adverse Reactions: Allergies Allergy/AdvReac Type Severity Reaction Status Date / Time oxycodone Allergy Intermediate Itching Verified 10/04/25 12:24 empagliflozin (From Allergy Mild Swelling Verified 10/04/25 12:24 Jardiance) <Gregg Reza MD - Last Filed: 10/04/25 19:21> Review of Systems Review of Systems: As reviewed above in HPI <Gregg Reza MD - Last Filed: 10/04/25 19:21> [facility] Past Medical History Medical History: Medical History (Updated 10/04/25 @ 14:20 by Delfin Tracey MD) Alcohol abuse Lactic acidosis Chronic anemia Aortic stenosis Echo January 2025 moderate to severe aortic valve stenosis with a peak velocity of 407 cm/s, mean gradient of 43 mmHg, and aortic valve area of 1.2 cm2. Cirrhosis Thrombocytopenia CKD (chronic kidney disease) CHF (congestive heart failure) DM2 (diabetes mellitus, type 2) History of diabetes mellitus <Gregg Reza MD - Last Filed: 10/04/25 19:21> Surgical History Surgical History: Surgical History H/O cataract extraction S/P ORIF (open reduction internal fixation) fracture Left ankle with jesus manuel placement with subsequent removal later <Gregg Reza MD - Last Filed: 10/04/25 19:21> Family History Family History: Family History Mother Cancer Parkinsons disease Father Cerebrovascular accident Sibling Cancer <Gregg Reza MD - Last Filed: 10/04/25 19:21> Social History Social History: Social History Social History: 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 He has 3 children and is and lives with his . Code status full code Smoking packs per day: 0.5 Smoking cigarettes per day: 10.0 Years smoked: 15 Smoking pack-years: 7.50 Smoking status: Former smoker Tobacco type: cigarettes Second hand tobacco smoke exposure: Yes Alcohol intake: current Drinks per week: 4 Substance use: current Substance use type: marijuana and crack/cocaine Last use: 10/03/25 Lack of Transportation: No Lack of Food: Never True Current Housing: I Have Housing Concerned About Future Housing: No Difficulty Paying Gas/Electric Bills: YES Difficulty Paying for Meds: No Currently Unemployed: No Education: High School Diploma/GED Difficulty w/ Childcare or Family Care: No Living arrangements: with family Spiritual care concerns: No <Gregg Reza MD - Last Filed: 10/04/25 19:21> Exam Narrative: GENERAL: Ill-appearing, dehydrated appearing, tachypneic, awake and answering all my questions appropriately HEAD: [Normocephalic, atraumatic.] EYES: PERRLA ENT: Nares clear, no rhinorrhea or epistaxis. Mucous membranes moist. NECK: Supple. CHEST: Coarse breath sounds but no wheezing or prolonged expiratory phase. Tachypnea noted. No retractions HEART: [Regular rate and rhythm]. No murmur heard. [Normal peripheral pulses.] ABDOMEN: Soft and nontender, body wall edema noted, no weeping or signs of cellulitis. region shows no signs of lesions, masses, hernias, cellulitis or skin breakdown. Rectal temp elevated. EXTREMITIES: Normal range of motion. Tree trunk like edema on both legs without any weeping or obvious signs of cellulitis. No ulcerations or signs of injury to the extremities. SKIN: Very warm to the touch, no appreciable rash. NEURO: Moving all extremities without any focal deficits. Awake alert oriented x3. Answering questions appropriately but appears weak and ill <Gregg Reza MD - Last Filed: 10/04/25 19:21> Course MEDICAL RADIATION TECH/PA Physician Supervision ZYCH: Patient signed out to me with pending completion of his CT chest abdomen pelvis. Despite 30 cc/kilogram bolus of ideal body weight patient is still hypotensive and had readings at 70/40. A right central line IJ was placed without complication. He was started on nor epi. Repeat chest x-ray showed significantly worse pulmonary edema and cardiomegaly. Patient's respiratory status is tenuous with respiratory rate of 30 and belly breathing. Patient was intubated for hypoxic respiratory failure and impending respiratory collapse. Patient is intubated with a 7.5 ET tube secured at 23 at the lips on 1st pass attempt with no complications. CT showed pulmonary edema and cardiomegaly. There was some colitis along the hepatic flexure. Patient was on ceftriaxone and azithromycin to cover pneumonia from the previous physician. Flagyl will be added to cover anaerobes. Case was discussed with our switchboard operator assistant he will be admitted to the ICU for further management. <Jatinder Singh MD - Last Filed: 10/04/25 09:53> Vital Signs Vital signs: Vital Signs Temperature 36.8 C 10/04/25 05:04 Pulse Rate 119 H 10/04/25 05:04 Respiratory Rate 24 H 10/04/25 05:04 Blood Pressure 161/54 H 10/04/25 05:04 Pulse Oximetry 96 10/04/25 05:04 Oxygen Delivery Nasal Cannula 10/04/25 05:04 Oxygen Flow Rate 2 10/04/25 05:04 Temperature 37.6 C H 10/04/25 18:00 Pulse Rate 96 10/04/25 18:00 Respiratory Rate 22 H 10/04/25 18:00 Blood Pressure 118/50 L 10/04/25 18:00 Pulse Oximetry 96 10/04/25 18:00 Oxygen Delivery Mechanical Ventilation 10/04/25 17:41 Oxygen Flow Rate 2 10/04/25 06:51 Fraction of Inspired Oxygen 50 10/04/25 17:41 <Gregg Reza MD - Last Filed: 10/04/25 19:21> Vital Signs Temperature 36.8 C 10/04/25 05:04 Pulse Rate 119 H 10/04/25 05:04 Respiratory Rate 24 H 10/04/25 05:04 Blood Pressure 161/54 H 10/04/25 05:04 Pulse Oximetry 96 10/04/25 05:04 Oxygen Delivery Nasal Cannula 10/04/25 05:04 Oxygen Flow Rate 2 10/04/25 05:04 Temperature 37.6 C H 10/04/25 18:00 Pulse Rate 96 10/04/25 18:00 Respiratory Rate 22 H 10/04/25 18:00 Blood Pressure 118/50 L 10/04/25 18:00 Pulse Oximetry 96 10/04/25 18:00 Oxygen Delivery Mechanical Ventilation 10/04/25 17:41 Oxygen Flow Rate 2 10/04/25 06:51 Fraction of Inspired Oxygen 50 10/04/25 17:41 <Jatinder Singh MD - Last Filed: 10/04/25 09:53> Procedures Central Line Placement Right IJ: Central Line Date: 10/04/25 <Jatinder Singh MD - Last Filed: 10/04/25 09:53> Discussed w/ the patient/family/POA,the placement of a central venous catheter, including its clinical necessity/indication & associated potential risks, benifits and alternatives.: Yes <Jatinder Singh MD - Last Filed: 10/04/25 09:53> The patient/family/POA understand(s) and acknowledge(s) the need to proceed with central venous catheter insertion as an important element of the patient's clinical management.: Yes <Jatinder Singh MD - Last Filed: 10/04/25 09:53> Performed Emergently - Given emergent patient condition, temporal constraints may have precluded informed consent.: Yes <Jatinder Singh MD - Last Filed: 10/04/25 09:53> Time Out Performed: Yes <Jatinder Singh MD - Last Filed: 10/04/25 09:53> Patient Placed on Monitor/Pulse Ox: Yes <Jatinder Singh MD - Last Filed: 10/04/25 09:53> Max. Sterile Barrier Technique: Caps, large sterile sheet and hand hygiene <Jatinder Singh MD - Last Filed: 10/04/25 09:53> Central Line Prep: 2% chlorhexidine scrub, sterile drapes applied and other <Jatinder Singh MD - Last Filed: 10/04/25 09:53> Technique: US-Guided <Jatinder Singh MD - Last Filed: 10/04/25 09:53> Local Anesthetic: lidocaine 1% and lidocaine 2% <Jatinder Singh MD - Last Filed: 10/04/25 09:53> Amount of anesthesia used (mL): 5 <Jatinder Singh MD - Last Filed: 10/04/25 09:53> Ultrasound Used for Placement: Yes <Jatinder Singh MD - Last Filed: 10/04/25 09:53> Central Line Lumen Inserted: triple <Jatinder Singh MD - Last Filed: 10/04/25 09:53> Post Procedure: sutured in place, good blood return, all ports aspirated, flushed, capped and sterile dressing applied <Jatinder Singh MD - Last Filed: 10/04/25 09:53> Post Procedure X-Ray: tip of catheter in good position and no pneumothorax seen <Jatindre Singh MD - Last Filed: 10/04/25 09:53> Patient Tolerated Procedure: well <Jatinder Singh MD - Last Filed: 10/04/25 09:53> Complications: none <Jatinder Singh MD - Last Filed: 10/04/25 09:53> Intubation Intubation #1: Intubation Date: 10/04/25 <Jatinder Singh MD - Last Filed: 10/04/25 09:53> Time out performed: Yes <Jatinder Singh MD - Last Filed: 10/04/25 09:53> sedative: Etomidate <Jatinder Singh MD - Last Filed: 10/04/25 09:53> Mg Given: 20 <Jatinder Singh MD - Last Filed: 10/04/25 09:53> paralytic: Rocuronium <Jatinder Singh MD - Last Filed: 10/04/25 09:53> Mg Given: 150 <Jatinder Singh MD - Last Filed: 10/04/25 09:53> Laryngoscope: Godwin (glide o scope) <Jatinder Singh MD - Last Filed: 10/04/25 09:53> Tube Size (cm): 7.5 <Jatinder Singh MD - Last Filed: 10/04/25 09:53> Method of Intubation: orotracheal <Jatinder Singh MD - Last Filed: 10/04/25 09:53> Number of Attempts: 1 <Jatinder Singh MD - Last Filed: 10/04/25 09:53> Tube Secured Depth (cm): 23 <Jatinder Singh MD - Last Filed: 10/04/25 09:53> Tube Secured Location: lips <Jatinder Singh MD - Last Filed: 10/04/25 09:53> Tube Placement Confirmation: visualized tube passing through cords, equal breath sounds bilaterally, no breath sounds over epigastrium and confirmation by capnometry <Jatinder Singh MD - Last Filed: 10/04/25 09:53> Patient Tolerated Procedure: well <Jatinder Singh MD - Last Filed: 10/04/25 09:53> Intubation Complications: none <Jatinder Singh MD - Last Filed: 10/04/25 09:53> MDM - Fever MDM Narrative Medical decision making narrative: 65-year-old male with a history of CHF, diabetes, BPH, hypertension presenting to the emergency department today for difficulty in breathing, weakness, fever, tachycardia. EMS called a code sepsis from the household based on vital signs and physical exam. Patient was in respiratory distress and breathing heavy, 89% on room air, found on the ground reportedly altered and not able to get up. Patient on arrival is awake alert oriented, answering all my questions. Not altered but does appear in distress, febrile, tachycardic and tachypneic. Requiring supplemental oxygen for assistance. Hypertensive with soft diastolics. Does appear very dehydrated and dry. Appears to be chronically edematous with tree trunk appearing legs and body wall edema also noted on previous documentation in the EMR. Patient states he has not been feeling well but not giving us any significant complaints such as chest pain, abdominal pain, nausea, vomiting, diarrhea. No injuries reported. He states he just does not feel well. No sick contacts at home. No recent hospitalizations per patient Patient is ill-appearing, tachycardic, tachypneic, febrile. Blood pressure elevated but diastolic is low. 89% saturation on room air, improved to 96 on 2 L nasal cannula. Has what appears to be chronic body wall edema and chronic leg edema without any signs of cellulitis. No obvious rashes or skin lesions. No abdominal discomfort with palpation and no rashes or lesions identified. Extremities without any skin breakdown or signs of wounds. No sacral wounds. Coarse breath sounds and the hypoxia raise suspicion for pulmonary process causing his suspected sepsis. Sepsis protocol activated and he was given 2 L of fluid resuscitation in addition to 1L NS provided by EMS. Recieved 30cc/kg bolus for his ideal body weight. Given his history of heart failure we will be judicious and additional provide aliquots of fluid and reassess. He does appear dry however and likely has room for volume resuscitation. Started on Rocephin and azithromycin for community-acquired pneumonia prophylactically. Lactic acid blood cultures and basic laboratory studies obtained. Chest x-ray and a CT of the head ordered given the reported altered mental status which is not present now. Tylenol provided for fever. Patient tachycardia improved with fluids down to 106. Blood pressure holding 135/63. Tachypnea improved. Still saturating 96% on 2 L. Patient re-evaluated and doing well but still ill-appearing. His laboratory studies showed leukocytosis and lactic acidosis as well as his tachycardia and fever pointing towards sepsis of unclear origin at this time. Chest x-ray independently reviewed shows cardiomegaly slightly worse than baseline but no obvious consolidations pointing towards pneumonia at this time. Urinalysis shows no obvious infection. His chronic thrombocytopenia is redemonstrated as well as his CKD. At this time we are not sure where his sepsis is coming from but he does have an elevated bilirubin and previous ultrasound imaging confirming gallstones and gallbladder sludge. No abdominal pain or tenderness on exam and re-evaluated and still not having any nausea vomiting or pain here. CT scan of the chest abdomen pelvis for further delineation ordered at this time and patient will be admitted after results for continued care of his sepsis. Care signed over to morning physician Dr. Singh pending CT and admit. <Gregg Reza MD - Last Filed: 10/04/25 19:21> Medical Records Attestation: I reviewed the patient's medical records. <Gregg Reza MD - Last Filed: 10/04/25 19:21> Lab Data Attestation: I reviewed the patient's lab results. <Gregg Reza MD - Last Filed: 10/04/25 19:21> Result diagrams: 10/04/25 14:17 10/04/25 05:30 <Gregg Reza MD - Last Filed: 10/04/25 19:21> Labs: Lab Results 10/04/25 10/04/25 10/04/25 Range/Units 05:10 05:30 05:30 WBC 16.1 H (4.5-10.0) K/mm3 RBC 3.12 L (4.6-6.20) M/mm3 Hgb 10.7 L (14.0-18.0) g/dL Hct 34.5 L (42.0-52.0) % MCV 110.6 H (80-100) fl MCH 34.3 H (26-34) pg MCHC 31.0 L (32-36) g/dl RDW 14.7 H (11.5-14.5) % Plt Count 92 L D (150-375) k/mm3 MPV 9.3 (7.4-10.4) fl Immature Gran % (Auto) 0.6 H (0-0.5) % Neut % (Auto) 89.0 H (45.5-73.1) % Lymph % (Auto) 5.6 L (18.3-44.2) % [place] % (Auto) 3.8 (2.6-8.5) % Eos % (Auto) 0.7 (0-4.4) % Baso % (Auto) 0.3 (0.2-1.2) % Lymph # (Auto) 0.90 (0.9-3.2) K/mm3 [place] # (Auto) 0.6 (0.1-0.6) K/mm3 Eos # (Auto) 0.1 (0-0.3) K/mm3 Baso # (Auto) 0.1 (0.0-0.1) K/mm3 Abs Immat Gran (auto) 0.09 H (0.00-0.031) K/mm3 Absolute Neuts (auto) 14.4 H (1.3-6.7) K/mm3 Absolute Nucleated RBC 0.000 (0.0-0.012) K/mm3 Band Neutrophils % Not Reportable Nucleated RBC % 0.0 (0.0-0.2) % Platelet Estimate Decreased (Adequate) % Immature Plt Fraction 1.4 (0.9-11.2) % Polychromasia Occasional Macrocytosis 1+ (NORMAL) Crenated Cell Occasional Schistocytes None seen PT 16.3 H (11.1-14.7) Seconds INR 1.3 APTT 33.6 (22.3-36.8) Seconds Minute Volume Vent Mode Tidal Volume ml PEEP cmH2O Peak Inspir Pressure Pressure Support Sodium 140 (137-145) mmol/L Potassium 4.5 (3.4-5.0) mmol/L Chloride 114 H (98-107) mmol/L Carbon Dioxide 16 L (22-30) mmol/L Anion Gap 10 (4-12) mmol/L BUN 27 H D (9-20) mg/dL Creatinine 1.83 H (0.7-1.3) mg/dL Estim Creat Clear Calc 57 ml/min Estimated GFR 37 L (59 - ) Glucose 117 H (65-110) mg/dL POC Capillary Glucose 119 H (65-105) mg/dl Lactic Acid 5.9 H* (0.7-2.0) mmol/L Calcium 8.8 (8.4-10.2) mg/dL Total Bilirubin 3.1 H (0.2-1.3) mg/dL AST 52 (17-59) U/L ALT 26 (6-50) U/L Alkaline Phosphatase 184 H (38-126) U/L Total Creatine Kinase 103 Cancelled (55-170) U/L Total Protein 9.0 H (6.3-8.2) g/dL Albumin 3.4 L (3.5-5.1) g/dL Procalcitonin 0.4 ng/mL Urine Color Yellow (Yellow) Urine Appearance Cloudy H (Clear) Urine pH 5.0 (5.0-9.0) Ur Specific [place] 1.012 (1.001-1.035) Urine Protein 3+ H (Negative) mg/dL Urine Glucose (UA) Negative (Negative) mg/dL Urine Ketones Negative (Negative) mg/dL Ur Blood (Man) 3+ H (Negative) Urine Nitrate Negative (Negative) Urine Bilirubin Negative (Negative) Urine Urobilinogen 1.0 (<2.0) mg/dL Add Ur Microanalysis Reviewed Leukocyte Esterase Rfl Trace H (Negative) NGUYEN/UL Urine RBC 21-50 H (0-2) /hpf Urine WBC 0-5 (0-3) /hpf Ur Squamous Epith Cells None seen (Few) /hpf Urine Bacteria None seen /hpf Urine Casts 3-5 Urine Opiates Screen Negative (Negative) Urine Methadone Screen Negative (Negative) Ur Barbiturates Screen Negative (Negative) Ur Phencyclidine Scrn Negative (Negative) Ur Amphetamine Screen Negative (Negative) U Benzodiazepines Scrn Negative (Negative) Urine Cocaine Screen Positive A (Negative) U Cannabinoids Screen Positive A (Negative) Ethyl Alcohol 23 (<10) mg/dL Influenza A (RT-PCR) (Negative) Influenza B (RT-PCR) (Negative) RSV (RT-PCR) (Negative) SARS-CoV-2 RNA (RT-PCR) (Negative) 10/04/25 10/04/25 10/04/25 Range/Units 06:21 08:39 09:42 WBC (4.5-10.0) K/mm3 RBC (4.6-6.20) M/mm3 Hgb (14.0-18.0) g/dL Hct (42.0-52.0) % MCV (80-100) fl MCH (26-34) pg MCHC (32-36) g/dl RDW (11.5-14.5) % Plt Count (150-375) k/mm3 MPV (7.4-10.4) fl Immature Gran % (Auto) (0-0.5) % Neut % (Auto) (45.5-73.1) % Lymph % (Auto) (18.3-44.2) % [place] % (Auto) (2.6-8.5) % Eos % (Auto) (0-4.4) % Baso % (Auto) (0.2-1.2) % Lymph # (Auto) (0.9-3.2) K/mm3 [place] # (Auto) (0.1-0.6) K/mm3 Eos # (Auto) (0-0.3) K/mm3 Baso # (Auto) (0.0-0.1) K/mm3 Abs Immat Gran (auto) (0.00-0.031) K/mm3 Absolute Neuts (auto) (1.3-6.7) K/mm3 Absolute Nucleated RBC (0.0-0.012) K/mm3 Band Neutrophils % Nucleated RBC % (0.0-0.2) % Platelet Estimate (Adequate) % Immature Plt Fraction (0.9-11.2) % Polychromasia Macrocytosis (NORMAL) Crenated Cell Schistocytes PT (11.1-14.7) Seconds INR APTT (22.3-36.8) Seconds Minute Volume Not Reportable Vent Mode Cmv Tidal Volume 500 ml PEEP 8 cmH2O Peak Inspir Pressure Not Reportable Pressure Support Not Reportable Sodium (137-145) mmol/L Potassium (3.4-5.0) mmol/L Chloride (98-107) mmol/L Carbon Dioxide (22-30) mmol/L Anion Gap (4-12) mmol/L BUN (9-20) mg/dL Creatinine (0.7-1.3) mg/dL Estim Creat Clear Calc ml/min Estimated GFR (59 - ) Glucose (65-110) mg/dL POC Capillary Glucose (65-105) mg/dl Lactic Acid 4.2 H* (0.7-2.0) mmol/L Calcium (8.4-10.2) mg/dL Total Bilirubin (0.2-1.3) mg/dL AST (17-59) U/L ALT (6-50) U/L Alkaline Phosphatase (38-126) U/L Total Creatine Kinase (55-170) U/L Total Protein (6.3-8.2) g/dL Albumin (3.5-5.1) g/dL Procalcitonin ng/mL Urine Color (Yellow) Urine Appearance (Clear) Urine pH (5.0-9.0) Ur Specific [place] (1.001-1.035) Urine Protein (Negative) mg/dL Urine Glucose (UA) (Negative) mg/dL Urine Ketones (Negative) mg/dL Ur Blood (Man) (Negative) Urine Nitrate (Negative) Urine Bilirubin (Negative) Urine Urobilinogen (<2.0) mg/dL Add Ur Microanalysis Leukocyte Esterase Rfl (Negative) NGUYEN/UL Urine RBC (0-2) /hpf Urine WBC (0-3) /hpf Ur Squamous Epith Cells (Few) /hpf Urine Bacteria /hpf Urine Casts Urine Opiates Screen (Negative) Urine Methadone Screen (Negative) Ur Barbiturates Screen (Negative) Ur Phencyclidine Scrn (Negative) Ur Amphetamine Screen (Negative) U Benzodiazepines Scrn (Negative) Urine Cocaine Screen (Negative) U Cannabinoids Screen (Negative) Ethyl Alcohol (<10) mg/dL Influenza A (RT-PCR) Negative (Negative) Influenza B (RT-PCR) Negative (Negative) RSV (RT-PCR) Negative (Negative) SARS-CoV-2 RNA (RT-PCR) Negative (Negative) <Gregg Reza MD - Last Filed: 10/04/25 19:21> Lab Results 10/04/25 10/04/25 10/04/25 Range/Units 05:10 05:30 05:30 WBC 16.1 H (4.5-10.0) K/mm3 RBC 3.12 L (4.6-6.20) M/mm3 Hgb 10.7 L (14.0-18.0) g/dL Hct 34.5 L (42.0-52.0) % MCV 110.6 H (80-100) fl MCH 34.3 H (26-34) pg MCHC 31.0 L (32-36) g/dl RDW 14.7 H (11.5-14.5) % Plt Count 92 L D (150-375) k/mm3 MPV 9.3 (7.4-10.4) fl Immature Gran % (Auto) 0.6 H (0-0.5) % Neut % (Auto) 89.0 H (45.5-73.1) % Lymph % (Auto) 5.6 L (18.3-44.2) % [place] % (Auto) 3.8 (2.6-8.5) % Eos % (Auto) 0.7 (0-4.4) % Baso % (Auto) 0.3 (0.2-1.2) % Lymph # (Auto) 0.90 (0.9-3.2) K/mm3 [place] # (Auto) 0.6 (0.1-0.6) K/mm3 Eos # (Auto) 0.1 (0-0.3) K/mm3 Baso # (Auto) 0.1 (0.0-0.1) K/mm3 Abs Immat Gran (auto) 0.09 H (0.00-0.031) K/mm3 Absolute Neuts (auto) 14.4 H (1.3-6.7) K/mm3 Absolute Nucleated RBC 0.000 (0.0-0.012) K/mm3 Band Neutrophils % Not Reportable Nucleated RBC % 0.0 (0.0-0.2) % Platelet Estimate Decreased (Adequate) % Immature Plt Fraction 1.4 (0.9-11.2) % Polychromasia Occasional Macrocytosis 1+ (NORMAL) Crenated Cell Occasional Schistocytes None seen PT 16.3 H (11.1-14.7) Seconds INR 1.3 APTT 33.6 (22.3-36.8) Seconds Minute Volume Vent Mode Tidal Volume ml PEEP cmH2O Peak Inspir Pressure Pressure Support Sodium 140 (137-145) mmol/L Potassium 4.5 (3.4-5.0) mmol/L Chloride 114 H (98-107) mmol/L Carbon Dioxide 16 L (22-30) mmol/L Anion Gap 10 (4-12) mmol/L BUN 27 H D (9-20) mg/dL Creatinine 1.83 H (0.7-1.3) mg/dL Estim Creat Clear Calc 57 ml/min Estimated GFR 37 L (59 - ) Glucose 117 H (65-110) mg/dL POC Capillary Glucose 119 H (65-105) mg/dl Lactic Acid 5.9 H* (0.7-2.0) mmol/L Calcium 8.8 (8.4-10.2) mg/dL Total Bilirubin 3.1 H (0.2-1.3) mg/dL AST 52 (17-59) U/L ALT 26 (6-50) U/L Alkaline Phosphatase 184 H (38-126) U/L Total Creatine Kinase 103 Cancelled (55-170) U/L Total Protein 9.0 H (6.3-8.2) g/dL Albumin 3.4 L (3.5-5.1) g/dL Procalcitonin 0.4 ng/mL Urine Color Yellow (Yellow) Urine Appearance Cloudy H (Clear) Urine pH 5.0 (5.0-9.0) Ur Specific [place] 1.012 (1.001-1.035) Urine Protein 3+ H (Negative) mg/dL Urine Glucose (UA) Negative (Negative) mg/dL Urine Ketones Negative (Negative) mg/dL Ur Blood (Man) 3+ H (Negative) Urine Nitrate Negative (Negative) Urine Bilirubin Negative (Negative) Urine Urobilinogen 1.0 (<2.0) mg/dL Add Ur Microanalysis Reviewed Leukocyte Esterase Rfl Trace H (Negative) NGUYEN/UL Urine RBC 21-50 H (0-2) /hpf Urine WBC 0-5 (0-3) /hpf Ur Squamous Epith Cells None seen (Few) /hpf Urine Bacteria None seen /hpf Urine Casts 3-5 Urine Opiates Screen Negative (Negative) Urine Methadone Screen Negative (Negative) Ur Barbiturates Screen Negative (Negative) Ur Phencyclidine Scrn Negative (Negative) Ur Amphetamine Screen Negative (Negative) U Benzodiazepines Scrn Negative (Negative) Urine Cocaine Screen Positive A (Negative) U Cannabinoids Screen Positive A (Negative) Ethyl Alcohol 23 (<10) mg/dL Influenza A (RT-PCR) (Negative) Influenza B (RT-PCR) (Negative) RSV (RT-PCR) (Negative) SARS-CoV-2 RNA (RT-PCR) (Negative) 10/04/25 10/04/25 10/04/25 Range/Units 06:21 08:39 09:42 WBC (4.5-10.0) K/mm3 RBC (4.6-6.20) M/mm3 Hgb (14.0-18.0) g/dL Hct (42.0-52.0) % MCV (80-100) fl MCH (26-34) pg MCHC (32-36) g/dl RDW (11.5-14.5) % Plt Count (150-375) k/mm3 MPV (7.4-10.4) fl Immature Gran % (Auto) (0-0.5) % Neut % (Auto) (45.5-73.1) % Lymph % (Auto) (18.3-44.2) % [place] % (Auto) (2.6-8.5) % Eos % (Auto) (0-4.4) % Baso % (Auto) (0.2-1.2) % Lymph # (Auto) (0.9-3.2) K/mm3 [place] # (Auto) (0.1-0.6) K/mm3 Eos # (Auto) (0-0.3) K/mm3 Baso # (Auto) (0.0-0.1) K/mm3 Abs Immat Gran (auto) (0.00-0.031) K/mm3 Absolute Neuts (auto) (1.3-6.7) K/mm3 Absolute Nucleated RBC (0.0-0.012) K/mm3 Band Neutrophils % Nucleated RBC % (0.0-0.2) % Platelet Estimate (Adequate) % Immature Plt Fraction (0.9-11.2) % Polychromasia Macrocytosis (NORMAL) Crenated Cell Schistocytes PT (11.1-14.7) Seconds INR APTT (22.3-36.8) Seconds Minute Volume Not Reportable Vent Mode Cmv Tidal Volume 500 ml PEEP 8 cmH2O Peak Inspir Pressure Not Reportable Pressure Support Not Reportable Sodium (137-145) mmol/L Potassium (3.4-5.0) mmol/L Chloride (98-107) mmol/L Carbon Dioxide (22-30) mmol/L Anion Gap (4-12) mmol/L BUN (9-20) mg/dL Creatinine (0.7-1.3) mg/dL Estim Creat Clear Calc ml/min Estimated GFR (59 - ) Glucose (65-110) mg/dL POC Capillary Glucose (65-105) mg/dl Lactic Acid 4.2 H* (0.7-2.0) mmol/L Calcium (8.4-10.2) mg/dL Total Bilirubin (0.2-1.3) mg/dL AST (17-59) U/L ALT (6-50) U/L Alkaline Phosphatase (38-126) U/L Total Creatine Kinase (55-170) U/L Total Protein (6.3-8.2) g/dL Albumin (3.5-5.1) g/dL Procalcitonin ng/mL Urine Color (Yellow) Urine Appearance (Clear) Urine pH (5.0-9.0) Ur Specific [place] (1.001-1.035) Urine Protein (Negative) mg/dL Urine Glucose (UA) (Negative) mg/dL Urine Ketones (Negative) mg/dL Ur Blood (Man) (Negative) Urine Nitrate (Negative) Urine Bilirubin (Negative) Urine Urobilinogen (<2.0) mg/dL Add Ur Microanalysis Leukocyte Esterase Rfl (Negative) NGUYEN/UL Urine RBC (0-2) /hpf Urine WBC (0-3) /hpf Ur Squamous Epith Cells (Few) /hpf Urine Bacteria /hpf Urine Casts Urine Opiates Screen (Negative) Urine Methadone Screen (Negative) Ur Barbiturates Screen (Negative) Ur Phencyclidine Scrn (Negative) Ur Amphetamine Screen (Negative) U Benzodiazepines Scrn (Negative) Urine Cocaine Screen (Negative) U Cannabinoids Screen (Negative) Ethyl Alcohol (<10) mg/dL Influenza A (RT-PCR) Negative (Negative) Influenza B (RT-PCR) Negative (Negative) RSV (RT-PCR) Negative (Negative) SARS-CoV-2 RNA (RT-PCR) Negative (Negative) <Jatinder Singh MD - Last Filed: 10/04/25 09:53> ABG Data ABG results: 10/04/25 09:42 Puncture Site Left radial ABG pH 7.273 L* ABG pCO2 40.8 ABG pO2 196.3 H ABG PO2/FiO2 Ratio 1.96 ABG HCO3 18.4 L ABG O2 Saturation 99.2 ABG O2 Content 13.9 L ABG Base Excess -7.9 A-a Gradient 475.9 Oxyhemoglobin 98.3 Total Hemoglobin 9.7 L O2 Delivery Device Ventilator O2 Liters/Min Not Reportable Vent Rate 16 FiO2 100 <Gregg Reza MD - Last Filed: 10/04/25 19:21> 10/04/25 09:42 Puncture Site Left radial ABG pH 7.273 L* ABG pCO2 40.8 ABG pO2 196.3 H ABG PO2/FiO2 Ratio 1.96 ABG HCO3 18.4 L ABG O2 Saturation 99.2 ABG O2 Content 13.9 L ABG Base Excess -7.9 A-a Gradient 475.9 Oxyhemoglobin 98.3 Total Hemoglobin 9.7 L O2 Delivery Device Ventilator O2 Liters/Min Not Reportable Vent Rate 16 FiO2 100 <Jatinder Singh MD - Last Filed: 10/04/25 09:53> Critical Care Time Critical Care Time Critical Care Time: Yes <Jatinder Singh MD - Last Filed: 10/04/25 09:53> Total Critical Care Time: 75 <Jatinder Singh MD - Last Filed: 10/04/25 09:53> Discharge Plan Discharge Clinical Impression: Sepsis, Hypoxemia requiring supplemental oxygen, Fever of unknown origin, Dehydration <Gregg Reza MD - Last Filed: 10/04/25 19:21> Patient Disposition: Still a Patient <Gregg Reza MD - Last Filed: 10/04/25 19:21> Condition: Stable <Gregg Reza MD - Last Filed: 10/04/25 19:21>
[2025-10-04 05:39] LABS: Hematocrit 34.5 % (42.0-52.0); Hemoglobin 10.7 g/dL (14.0-18.0); Immature Granulocyte Percent A 0.6 % (0-0.5); Immature Platelet Fraction Pct 1.4 % (0.9-11.2); Lymphocytes Absolute Auto 0.90 K/mm3 (0.9-3.2); Mean Corpuscular HGB Conc 31.0 g/dl (32-36); Mean Corpuscular Hemoglobin 34.3 pg (26-34); Mean Corpuscular Volume 110.6 fl (80-100); Nucleated Red Blood Cells Absolute Auto 0.000 K/mm3 (0.0-0.012); Nucleated Red Blood Cells Perc 0.0 % (0.0-0.2); Platelet Count Result 92 k/mm3 (150-375); Red Blood Count 3.12 M/mm3 (4.6-6.20); White Blood Count 16.1 K/mm3 (4.5-10.0)
[2025-10-04 05:57] LABS: INR 1.3; Prothrombin Time 16.3 Seconds (11.1-14.7)
[2025-10-04 05:58] LABS: Partial Thromboplastin Time 33.6 Seconds (22.3-36.8)
[2025-10-04 06:20] LABS: Alanine Aminotransferase 26 U/L (6-50); Albumin Level 3.4 g/dL (3.5-5.1); Alkaline Phosphatase 184 U/L (38-126); Anion Gap 10 mmol/L (4-12); Aspartate Amino Transferase 52 U/L (17-59); Bilirubin,Total 3.1 mg/dL (0.2-1.3); Blood Urea Nitrogen 27 mg/dL (9-20); Calcium 8.8 mg/dL (8.4-10.2); Carbon Dioxide 16 mmol/L (22-30); Chloride 114 mmol/L (98-107); Estimated CRCL calculation 57 ml/min; Estimated Glomerular Filt Rate 37; Glucose 117 mg/dL (65-110); Potassium 4.5 mmol/L (3.4-5.0); Sodium 140 mmol/L (137-145); Total Protein 9.0 g/dL (6.3-8.2)
[2025-10-04 06:23] LABS: Cannabinoid Screen Urine Positive (Negative)
[2025-10-04] MEDS: LACTATED RINGERS 1,000 ML 999 ML IV CONT ×2 (06:26→08:46)
[2025-10-04] MEDS: LACTATED RINGERS 500 ML 999 ML IV CONT (06:27)
[2025-10-04 06:28] LABS: Creatine Kinase 103 U/L (55-170)
[2025-10-04] MEDS: ACETAMINOPHEN 500 MG TABLET 1000 MG PO (06:33)
[2025-10-04 06:44] LABS: Macrocytosis 1+ (NORMAL); Polychromasia Occasional; Schistocytes None Seen
[2025-10-04 06:46] LABS: Crenated RBC Occasional
[2025-10-04 06:47] LABS: Add Urine Microscopic? YES; Appearance Urine Cloudy (Clear); Glucose Urine UA Negative (Negative); Leukocyte Esterase Ur Trace LEU/UL (Negative); Need Manual Microscopic Reviewed; Nitrate Urine Negative (Negative); Specific Grav Ur 1.012 (1.001-1.035)
[2025-10-04 07:19] LABS: Influenza A QL RT-PCR Negative (Negative); Influenza B QL RT-PCR Negative (Negative); RSV RNA, RT-PCR Negative (Negative); SARS-CoV-2 RNA PCR Negative (Negative)
[2025-10-04 07:27] LABS: Procalcitonin 0.4 ng/mL
[2025-10-04] MEDS: cefTRIAXone 1 GM in SODIUM CHLORIDE 0.9% IV 50 ML 100 ML IVPB (07:55)
[2025-10-04] MEDS: NOREPINEPHRINE 8 MG/D5W 250 ML 8 MG/250 ML BAG 9.38 MG IV CONT (08:42)
[2025-10-04] MEDS: AZITHROMYCIN IV 500 MG in SODIUM CHLORIDE 0.9% IV 250 ML IVPB (08:43)
--- NOTE | 2025-10-04 08:54 | PC.NURSE ---
radiology called at this time for stat portable xray
[2025-10-04] MEDS: FENTANYL 2,500MCG/NS250ML(*CRX 2,500 MCG/250 ML BAG 15 MCG IV CONT (09:19)
[2025-10-04] MEDS: MIDAZOLAM 100MG/NS 100ML(*CRX) 100 MG/100 ML BAG IV CONT (09:20)
[2025-10-04] MEDS: HYDROmorphone HCL INJ (*CRX) 1 MG/ML SYR IV PUSH (09:23)
--- NOTE | 2025-10-04 09:46 | PC.NURSE ---
0909 20mg Etomidate administered by TRUDY Morin per verbal order of EDP Dr. Singh 09 150mg Rocuronium administered by TRUDY Morin per verbal order of EDP Dr. Francisco Naylor 7.5 tube, 23 @ the lip with color change and bilateral breath sounds verified by ED respiratory 0912 1mg hydromorphone administered by this RN per verbal order of EDP Dr. Singh 0916 5mg of Versed administered by this RN per verbal order of EDP Dr. Singh 0917 OG inserted 60 @ the lip by TRUDY Morin per verbal order of EDP Dr. Singh
[2025-10-04 09:52] LABS: Alveolar/Arterial O2 Gradient 475.9 mmHg; Fractional Inspired Oxygen 100 %; HCO3 ABG 18.4 mEq/l (22.0-26.0); Oxygen Content ABG 13.9 %vol (16.0-22.0); Oxygen Saturation ABG 99.2 % (95.0-100.0); PCO2 ABG 40.8 mmHg (35.0-45.0); PO2 ABG 196.3 mmHg (80.0-100.0); PO2 FiO2 Ratio Arterial Blood 1.96 %
[2025-10-04] MEDS: metroNIDAZOLE 500 MG/ISO 100ML 500 MG/100 ML BAG 100 MG IVPB ×2 (09:58→17:02)
[2025-10-04 09:59] LABS: Modified Allen's Test Pass; Site Drawn LEFT RADIAL
[2025-10-04 10:00] LABS: Arterial Blood Gas Tidal Volume 500 ml; Arterial Blood Gas Ventilator rate 16 /MIN
--- NOTE | 2025-10-04 10:11 | PC.NURSE ---
[address] Singh to increase pts fentanyl infusion to 250 mcg/hr.
--- NOTE | 2025-10-04 11:05 | WPCEDHO ---
ED Hand Off Checklist All vitals saved:y IV Site documented:y All med administrations documented:y Triage Note Triage Note pt to ED via [facility] 10/04/25 05:04 from home with c/o SOB and AMS. pt was found at 89% RA. pt is A+ Ox3 and baseline is A+Ox4. pt sugar is 136. pt has hx of diabetes. Allergies oxycodone Allergy (Intermediate, Verified 10/04/25 06:29) Itching facial itching, burning and redness Family History (Last Reviewed 10/04/25 @ 05:41 by Gregg Reza MD) Mother Cancer Active Medications including assessments/comments Norepinephrine Bitartrate (Levophed 8 Mg/D5w 250 Ml) 8 mg in 250 mls @ 26.25 mls/hr IV CONT .Q9H32M VIKA; Protocol Last Titration: 10/04/25:31 Dose: 14 mcg/min, 26.25 mls/hr Documented By: JONO Infusion/Titration Document 10/04/25 09:31 ELB (Rec: 10/04/25 09:32 ELB [id number]) Intake IV Site Central Catheter, Triple Lumen Right Jugular, Internal Intake 1.1 Cumulative Intake ( 11.9 bag) Cumulative Intake ( 11.9 Rx) Container Volume 238.1 Waste Amount 0 Dosing Dose Rate 14 Infusion Rate 26.25 Cumulative Dose 0.3808 Increase/Decrease Increased Elapsed Time Elapsed Time ( 49m minutes) Norepinephrine Infusion Assess Document 10/04/25 09:31 ELB (Rec: 10/04/25 09:32 ELB [id number]) Infusion Action Norepinephrine Titrated/Rate Changed Infusion Action Pulse Pulse Rate (60-100) 107 H Blood Pressure Blood Pressure (100/ 80/48 L 60-140/90) Blood Pressure Mean 58 (mmHg) Titration: 10/04/25 09:28 Dose: 12 mcg/min, 22.5 mls/hr Documented By: ELB Infusion/Titration Document 10/04/25 09:28 ELB (Rec: 10/04/25 09:28 ELB [id number]) Intake IV Site Central Catheter, Triple Lumen Right Jugular, Internal Intake 6.6 Cumulative Intake ( 10.8 bag) Cumulative Intake ( 10.8 Rx) Container Volume 239.2 Waste Amount 0 Dosing Dose Rate 12 Infusion Rate 22.5 Cumulative Dose 0.3456 Increase/Decrease Increased Elapsed Time Elapsed Time ( 46m minutes) Norepinephrine Infusion Assess Document 10/04/25 09:28 ELB (Rec: 10/04/25 09:28 ELB [id number]) Infusion Action Norepinephrine Titrated/Rate Changed Infusion Action Pulse Pulse Rate (60-100) 107 H Blood Pressure Blood Pressure (100/ 85/51 L 60-140/90) Blood Pressure Mean 62 (mmHg) Titration: 10/04/25 09:07 Dose: 10 mcg/min, 18.75 mls/hr Documented By: ELB Infusion/Titration Document 10/04/25 09:07 ELB (Rec: 10/04/25 09:08 ELB [id number]) Intake IV Site Central Catheter, Triple Lumen Right Jugular, Internal Intake 0.9 Cumulative Intake ( 4.2 bag) Cumulative Intake ( 4.2 Rx) Container Volume 245.8 Waste Amount 0 Dosing Dose Rate 10 Infusion Rate 18.75 Cumulative Dose 0.1344 Increase/Decrease Increased Elapsed Time Elapsed Time ( 25m minutes) Norepinephrine Infusion Assess Document 10/04/25 09:07 ELB (Rec: 10/04/25 09:08 ELB [id number]) Infusion Action Norepinephrine Titrated/Rate Changed Infusion Action Pulse Pulse Rate (60-100) 106 H Blood Pressure Blood Pressure (100/ 96/63 L 60-140/90) Blood Pressure Mean 74 (mmHg) Titration: 10/04/25 09:03 Dose: 7 mcg/min, 13.13 mls/hr Documented By: ELB Infusion/Titration Document 10/04/25 09:03 ELB (Rec: 10/04/25 09:04 ELB [id number]) Intake IV Site Central Catheter, Triple Lumen Right Jugular, Internal Intake 3.3 Cumulative Intake ( 3.3 bag) Cumulative Intake ( 3.3 Rx) Container Volume 246.7 Waste Amount 0 Dosing Dose Rate 7 Infusion Rate 13.13 Cumulative Dose 0.1056 Increase/Decrease Increased Elapsed Time Elapsed Time ( 21m minutes) Norepinephrine Infusion Assess Document 10/04/25 09:03 ELB (Rec: 10/04/25 09:04 ELB [id number]) Infusion Action Norepinephrine Titrated/Rate Changed Infusion Action Pulse Pulse Rate (60-100) 105 H Blood Pressure Blood Pressure (100/ 69/56 L 60-140/90) Blood Pressure Mean 60 (mmHg) Admin: 10/04/25 08:42 Dose: 5 mcg/min, 9.38 mls/hr Documented By: ELB Infusion/Titration Document 10/04/25 08:42 ELB (Rec: 10/04/25 08:43 ELB [id number]) Intake IV Site Central Catheter, Triple Lumen Right Jugular, Internal Container Volume 250 Waste Amount 0 Dosing Dose Rate 5 Infusion Rate 9.38 Increase/Decrease Started Elapsed Time Elapsed Time ( 0m minutes) Norepinephrine Infusion Assess Document 10/04/25 08:42 ELB (Rec: 10/04/25 08:43 ELB [id number]) Infusion Action Norepinephrine Initiated Infusion Action Pulse Pulse Rate (60-100) 97 Blood Pressure Blood Pressure (100/ 67/49 L 60-140/90) Blood Pressure Mean 55 (mmHg) Fentanyl Citrate (Fentanyl 2,500 Mcg/Ns 250 Ml) 2,500 mcg in 250 mls @ 25 mls/hr IV CONT .Q10H STA; Protocol Stop: 10/04/25 18:31 Last Titration: 10/04/25 09:57 Dose: 250 mcg/hr, 25 mls/hr Documented By: ELB Infusion/Titration Document 10/04/25 09:57 ELB (Rec: 10/04/25 09:57 ELB [id number]) Intake IV Site Central Catheter, Triple Lumen Right Jugular, Internal Intake 9.3 Cumulative Intake ( 11.8 bag) Cumulative Intake ( 11.8 Rx) Container Volume 238.2 Waste Amount 0 Dosing Dose Rate 250 Infusion Rate 25 Cumulative Dose 118 Increase/Decrease Increased Elapsed Time Elapsed Time ( 38m minutes) Fentanyl Infusion Assessment Document 10/04/25 09:57 JONO (Rec: 10/04/25 09:57 ELB [id number]) Infusion Action Fentanyl Infusion Titrated/Rate Changed Action Pulse Pulse Rate (60-100) 120 H Respirations Respiratory Rate (12 16 -20) Wen Agitation/Sedation Scale (RASS) Wen Agitation/ Restless/ +1 Sedation Scale (RASS ) Titration: 10/04/25 09:29 Dose: 200 mcg/hr, 20 mls/hr Documented By: ELB Infusion/Titration Document 10/04/25 09:29 ELB (Rec: 10/04/25 09:30 ELB [id number]) Intake IV Site Peripheral Access Left Antecubital Intake 2.5 Cumulative Intake ( 2.5 bag) Cumulative Intake ( 2.5 Rx) Container Volume 247.5 Waste Amount 0 Dosing Dose Rate 200 Infusion Rate 20 Cumulative Dose 25 Increase/Decrease Increased Elapsed Time Elapsed Time ( 10m minutes) Fentanyl Infusion Assessment Document 10/04/25 09:29 ELB (Rec: 10/04/25 09:30 ELB [id number]) Infusion Action Fentanyl Infusion Titrated/Rate Changed Action Pulse Pulse Rate (60-100) 106 H Respirations Respiratory Rate (12 16 -20) Wen Agitation/Sedation Scale (RASS) Wen Agitation/ Restless/ +1 Sedation Scale (RASS ) Admin: 10/04/25 09:19 Dose: 150 mcg/hr, 15 mls/hr Documented By: JONO Co-signed By: ADHLIA Infusion/Titration Document 10/04/25 09:19 ELB (Rec: 10/04/25 09:20 ELB [id number]) Co-signed By Patience Velasco RN Intake IV Site Peripheral Access Left Antecubital Container Volume 250 Waste Amount 0 Dosing Dose Rate 150 Infusion Rate 15 Increase/Decrease Started Elapsed Time Elapsed Time ( 0m minutes) Fentanyl Infusion Assessment Document 10/04/25 09:19 ELB (Rec: 10/04/25 09:20 MARYB [id number]) Co-signed By Patience Velasco RN Infusion Action Fentanyl Infusion Initiated Action Pulse Pulse Rate (60-100) 115 H Respirations Respiratory Rate (12 12 -20) Wen Agitation/Sedation Scale (RASS) Wen Agitation/ Restless/ +1 Sedation Scale (RASS ) MAR Pain Assessment Document 10/04/25 09:19 ELParisa (Rec: 10/04/25 09:20 JONO [id number]) Co-signed By Patience Velasco RN Pain Evaluation Pain Evaluation Sedation Use - ICU/ED Only Re-Assess: MARIO Pain/Fever Reassessment Document 10/04/25 09:53 ELParisa (Rec: 10/04/25 09:53 ELB [id number]) Reason for Administratin Reason for Sedation Use - ICU/ED Only Administration Midazolam HCl (Versed 100 Mg/Ns 100 Ml) 100 mg in 100 mls @ 10 mls/hr IV CONT .Q10H STA; Protocol Stop: 10/04/25 18:31 Last Titration: 10/04/25 10:00 Dose: 10 mg/hr, 10 mls/hr Documented By: ELB Infusion/Titration Document 10/04/25 10:00 ELB (Rec: 10/04/25 10:04 ELB [id number]) Intake IV Site Central Catheter, Triple Lumen Right Jugular, Internal Intake 1.3 Cumulative Intake ( 3.3 bag) Cumulative Intake ( 3.3 Rx) Container Volume 96.7 Waste Amount 0 Dosing Dose Rate 10 Infusion Rate 10 Cumulative Dose 3.3 Increase/Decrease Increased Elapsed Time Elapsed Time ( 40m minutes) Versed Infusion Assessment Document 10/04/25 10:00 ELB (Rec: 10/04/25 10:04 ELB [id number]) Infusion Action Versed Infusion Titrated/Rate Changed Action Pulse Pulse Rate (60-100) 124 H Respirations Respiratory Rate (12 16 -20) Wen Agitation/Sedation Scale (RASS) Wen Agitation/ Restless/ +1 Sedation Scale (RASS ) Titration: 10/04/25 09:50 Dose: 8 mg/hr, 8 mls/hr Documented By: ELB Infusion/Titration Document 10/04/25 09:50 ELB (Rec: 10/04/25 09:52 ELB [id number]) Intake IV Site Central Catheter, Triple Lumen Right Jugular, Internal Intake 1 Cumulative Intake ( 2 bag) Cumulative Intake ( 2 Rx) Container Volume 98 Waste Amount 0 Dosing Dose Rate 8 Infusion Rate 8 Cumulative Dose 2 Increase/Decrease Increased Elapsed Time Elapsed Time ( 30m minutes) Versed Infusion Assessment Document 10/04/25 09:50 ELB (Rec: 10/04/25 09:52 ELB [id number]) Infusion Action Versed Infusion Titrated/Rate Changed Action Pulse Pulse Rate (60-100) 120 H Respirations Respiratory Rate (12 16 -20) Wen Agitation/Sedation Scale (RASS) Wen Agitation/ Restless/ +1 Sedation Scale (RASS ) Titration: 10/04/25 09:40 Dose: 6 mg/hr, 6 mls/hr Documented By: ELB Infusion/Titration Document 10/04/25 09:40 ELB (Rec: 10/04/25 09:52 ELB [id number]) Intake IV Site Central Catheter, Triple Lumen Right Jugular, Internal Intake 0.7 Cumulative Intake ( 1 bag) Cumulative Intake ( 1 Rx) Container Volume 99 Waste Amount 0 Dosing Dose Rate 6 Infusion Rate 6 Cumulative Dose 1 Increase/Decrease Increased Elapsed Time Elapsed Time ( 20m minutes) Versed Infusion Assessment Document 10/04/25 09:40 JONO (Rec: 10/04/25 09:52 ELB [id number]) Infusion Action Versed Infusion Titrated/Rate Changed Action Pulse Pulse Rate (60-100) 120 H Respirations Respiratory Rate (12 16 -20) Wen Agitation/Sedation Scale (RASS) Wen Agitation/ Restless/ +1 Sedation Scale (RASS ) Titration: 10/04/25 09:30 Dose: 4 mg/hr, 4 mls/hr Documented By: JONO Infusion/Titration Document 10/04/25 09:30 JONO (Rec: 10/04/25 09:31 JONO [id number]) Intake IV Site Peripheral Access Left Antecubital Intake 0.3 Cumulative Intake ( 0.3 bag) Cumulative Intake ( 0.3 Rx) Container Volume 99.7 Waste Amount 0 Dosing Dose Rate 4 Infusion Rate 4 Cumulative Dose 0.3 Increase/Decrease Increased Elapsed Time Elapsed Time ( 10m minutes) Versed Infusion Assessment Document 10/04/25 09:30 JONO (Rec: 10/04/25 09:31 JONO [id number]) Infusion Action Versed Infusion Titrated/Rate Changed Action Pulse Pulse Rate (60-100) 106 H Respirations Respiratory Rate (12 16 -20) Wen Agitation/Sedation Scale (RASS) Wen Agitation/ Restless/ +1 Sedation Scale (RASS ) Admin: 10/04/25 09:20 Dose: 2 mg/hr, 2 mls/hr Documented By: JONO Co-signed By: DAHLIA Infusion/Titration Document 10/04/25 09:20 JONO (Rec: 10/04/25 09:20 JONO [id number]) Co-signed By Patience Velasco RN Intake IV Site Peripheral Access Left Antecubital Container Volume 100 Waste Amount 0 Dosing Dose Rate 2 Infusion Rate 2 Increase/Decrease Started Elapsed Time Elapsed Time ( 0m minutes) Versed Infusion Assessment Document 10/04/25 09:20 JONO (Rec: 10/04/25 09:20 JONO [id number]) Co-signed By Patience Velasco RN Infusion Action Versed Infusion Initiated Action Pulse Pulse Rate (60-100) 115 H Respirations Respiratory Rate (12 12 -20) Wen Agitation/Sedation Scale (RASS) Wen Agitation/ Restless/ +1 Sedation Scale (RASS ) Norepinephrine Bitartrate (Levophed 8 Mg/D5w 250 Ml) 8 mg in 250 mls @ 9.375 mls/hr IV CONT .Q24H STA; Protocol Stop: 10/05/25 08:31 Last Admin: 10/04/25 08:40 Dose: Not Given Documented By: JONO Non-Admin Reason: Duplicate Dose Administered/Completed Medications Discontinued Medications Acetaminophen (Acetaminophen 500 Mg Tablet) 1,000 mg PO ONCE STA Stop: 10/04/25 05:44 Last Admin: 10/04/25 06:33 Dose: 1,000 mg Documented By: KRISSY Hydromorphone HCl (Hydromorphone Hcl Inj (*Crx) 1 Mg/Ml Syr) Confirm Administered Dose 1 mg .ROUTE .STK-MED ONE Stop: 10/04/25 09:07 Last Admin: 10/04/25 09:20 Dose: Not Given Documented By: JONO Non-Admin Reason: Duplicate Dose Hydromorphone HCl (Hydromorphone Hcl Inj (*Crx) 1 Mg/Ml Syr) 1 mg IV PUSH ONCE STA Stop: 10/04/25 09:22 Last Admin: 10/04/25 09:23 Dose: 1 mg Documented By: JONO Lactated Ringer's (Lr - Lactated Ringers Iv) 1,000 mls @ 999 mls/hr IV CONT .Q1H1M STA Stop: 10/04/25 06:36 Last Infusion: 10/04/25 08:39 Dose: Infused Documented By: Admin: 10/04/25 06:26 Dose: 999 mls/hr Documented By: KRISSY Ceftriaxone Sodium 1 gm/ (Sodium Chloride) 50 mls @ 100 mls/hr IVPB ONCE STA Stop: 10/04/25 06:05 Last Infusion: 10/04/25 08:27 Dose: Infused Documented By: Admin: 10/04/25 07:55 Dose: 100 mls/hr Documented By: JONO Azithromycin 500 mg/ Sodium (Chloride) 250 mls @ 250 mls/hr IVPB ONCE STA Stop: 10/04/25 06:35 Last Infusion: 10/04/25 09:43 Dose: Infused Documented By: ELParisa Admin: 10/04/25 08:43 Dose: 250 mls/hr Documented By: JONO Lactated Ringer's (Lactated Ringers) 500 mls @ 999 mls/hr IV CONT .Q31M STA Stop: 10/04/25 06:07 Last Infusion: 10/04/25 08:39 Dose: Infused Documented By: ELParisa Admin: 10/04/25 06:27 Dose: 999 mls/hr Documented By: KRISSY Lactated Ringer's (Lr - Lactated Ringers Iv) 1,000 mls @ 999 mls/hr IV CONT .Q1H1M STA Stop: 10/04/25 09:29 Last Admin: 10/04/25 08:39 Dose: Not Given Documented By: ELParisa Non-Admin Reason: Duplicate Dose Lactated Ringer's (Lr - Lactated Ringers Iv) 1,000 mls @ 999 mls/hr IV CONT .Q1H1M STA Stop: 10/04/25 09:29 Last Infusion: 10/04/25 09:33 Dose: Infused Documented By: ELParisa Admin: 10/04/25 08:46 Dose: 999 mls/hr Documented By: JONO Norepinephrine Bitartrate (Levophed 8 Mg/D5w 250 Ml) Confirm Administered Dose 8 mg in 250 mls @ as directed .ROUTE .STK-MED ONE Stop: 10/04/25 08:34 Last Admin: 10/04/25 08:40 Dose: Not Given Documented By: ELParisa Non-Admin Reason: Duplicate Dose Metronidazole (Flagyl 500 Mg/Iso Soln 100 Ml) 500 mg in 100 mls @ 100 mls/hr IVPB ONCE STA Stop: 10/04/25 10:17 Last Infusion: 10/04/25 11:03 Dose: Infused Documented By: ELParisa Admin: 10/04/25 09:58 Dose: 100 mls/hr Documented By: JONO Succinylcholine Chloride (Rapid Sequence Intubation Kit) Confirm Administered Dose 1 each .ROUTE .STK-MED ONE Stop: 10/04/25 09:03 Last Admin: 10/04/25 09:20 Dose: Not Given Documented By: ELParisa Non-Admin Reason: Charge Only Succinylcholine Chloride (Rapid Sequence Intubation Kit) Confirm Administered Dose 1 each .ROUTE .STK-MED ONE Stop: 10/04/25 09:07 Last Admin: 10/04/25 09:20 Dose: Not Given Documented By: JONO Non-Admin Reason: Charge Only Notes 10/04/25 10:11 Nurse Note by Rebekah Sweeney [id number] Singh to increase pts fentanyl infusion to 250 mcg/hr. Initialized on 10/04/25 10:11 - END OF NOTE 10/04/25 09:46 Nurse Note by Rebekah Sweeney [id number] 20mg Etomidate administered by TRUDY Morin per verbal order of EDP Dr. Singh 0910 150mg Rocuronium administered by TRUDY Morin per verbal order of EDP Dr. Singh 09 7.5 tube, 23 @ the lip with color change and bilateral breath sounds verified by ED respiratory 0912 1mg hydromorphone administered by this RN per verbal order of EDP Dr. Singh 0916 5mg of Versed administered by this RN per verbal order of EDP Dr. Singh 0917 OG inserted 60 @ the lip by TRUDY Morin per verbal order of EDP Dr. Singh Initialized on 10/04/25 09:46 - END OF NOTE 10/04/25 08:54 Nurse Note by Trixie Velasco radiology called at this time for stat portable xray Initialized on 10/04/25 08:54 - END OF NOTE Interventions/Assessments Cardiac Monitoring Start: 10/04/25 04:57 Freq: Status: Active Protocol: Document 10/04/25 05:09 ACS (Rec: 10/04/25 05:09 ACS [id number]) Maintainer Operator Assessment Maintainer Operator Yes Applied Pulse Rate (60-100) 118 H EKG Rythm Sinus Tachycardia General Assessment Start: 10/04/25 04:57 Freq: Status: Active Protocol: Document 10/04/25 05:09 ACS (Rec: 10/04/25 05:11 ACS [id number]) GA Neurological Assessment Level of Alert Consciousness Arousable to Verbal Orientation Oriented to Person,Oriented to Place Behavior Appropriate,Cooperative Patient Able to Comprehend Comprehension Memory Description Intact GA HEENT Assessment HEENT Assessment WNL Yes GA Cardiovascular Assessment Cardiovascular Yes Assessment WNL GA Respiratory Assessment Symptoms Shortness of Breath at Rest,Shortness of Breath With Exertion Respiratory Rate (12 18 -20) Effort Short of Breath Pattern Regular Depth Normal Chest Expansion Symmetrical Adult Capillary Normal/Less than 2 Seconds Refill Oxygen Delivery Nasal Cannula Method Oxygen Flow Rate 2 Pulse Oximetry (90- 96 100) IV / Saline Lock, Insert Start: 10/04/25 04:57 Freq: Status: Active Protocol: Document 10/04/25 05:11 ACS (Rec: 10/04/25 05:11 ACS [id number]) IV Assessment Peripheral Access Left Antecubital IV Catheter Access Initiated Before Arrival IV Insertion Date 10/04/25 IV Insertion Time 05:11 Catheter Gauge 18 IV Site Assessment WNL IV Care and WNL Maintenance IV / Saline Lock, Insert Start: 10/04/25 05:12 Freq: STAT Status: Active Protocol: Document 10/04/25 08:42 ELB (Rec: 10/04/25 08:43 ELB [id number]) IV Assessment Central Catheter, Triple Lumen Right Jugular, Internal IV Catheter Access Initiated IV Insertion Date 10/04/25 IV Insertion Time 08:25 IV Insertion 1 Attempts Ultrasound Used for Yes Placement IV Site Assessment WNL IV Care and WNL Maintenance PA: Cardiovascular Assessment Start: 10/04/25 04:57 Freq: Status: Active Protocol: Document 10/04/25 06:51 ACS (Rec: 10/04/25 06:53 ACS [id number]) Cardiovascular Assessment Cardiovascular None Symptoms Skin Description Normal Color Jugular Vein None Distention PA: Neurological Assessment Start: 10/04/25 04:57 Freq: Status: Active Protocol: Document 10/04/25 06:51 ACS (Rec: 10/04/25 06:53 ACS [id number]) Neurological Assessment Level of Alert Consciousness Arousable to Verbal Orientation Oriented to Person,Oriented to Place,Oriented to Time Neurological Confusion Symptoms Behavior Appropriate,Cooperative Patient Able to Comprehend Comprehension Memory Description Intact Nereyda Coma Scale Eyes Open Verbal Oriented and Alert Motor Follows Commands Nereyda Coma Total 15 Score PA: Respiratory Assessment Start: 10/04/25 04:57 Freq: Status: Active Protocol: Document 10/04/25 06:51 ACS (Rec: 10/04/25 06:53 ACS [id number]) Respiratory Assessment Symptoms Cough Effort Short of Breath Pattern Tachypnea Depth Deep Chest Expansion Symmetrical Adult Capillary Normal/Less than 2 Seconds Refill Cough Description Acute Cough Frequency Intermittent Oxygen Delivery Oxygen Delivery Nasal Cannula Oxygen Flow Rate 2 Pulse Oximetry (90- 96 100) Last Vital Signs Temperature 100.3 F H 10/04/25 11:01 Pulse Rate 121 H 10/04/25 11:01 Respiratory Rate 16 10/04/25 11:01 Pulse Oximetry 92 10/04/25 11:01 Blood Pressure 95/52 L 10/04/25 11:01 Blood Pressure Mean 67 10/04/25 11:01 Oxygen Delivery Mechanical Ventilation 10/04/25 10:09 Oxygen Flow Rate 2 10/04/25 06:51 Fraction of Inspired Oxygen 85 10/04/25 10:09 Weight 149.5 kg 10/04/25 05:04 Last Result - Abnormals Only WBC 16.1 K/mm3 (4.5-10.0) H 10/04/25 05:30 RBC 3.12 M/mm3 (4.6-6.20) L 10/04/25 05:30 Hgb 10.7 g/dL (14.0-18.0) L 10/04/25 05:30 Hct 34.5 % (42.0-52.0) L 10/04/25 05:30 MCV 110.6 fl (80-100) H 10/04/25 05:30 MCH 34.3 pg (26-34) H 10/04/25 05:30 MCHC 31.0 g/dl (32-36) L 10/04/25 05:30 RDW 14.7 % (11.5-14.5) H 10/04/25 05:30 Plt Count 92 k/mm3 (150-375) L D 10/04/25 05:30 Immature Gran % (Auto) 0.6 % (0-0.5) H 10/04/25 05:30 Neut % (Auto) 89.0 % (45.5-73.1) H 10/04/25 05:30 Lymph % (Auto) 5.6 % (18.3-44.2) L 10/04/25 05:30 Abs Immat Gran (auto) 0.09 K/mm3 (0.00-0.031) H 10/04/25 05:30 Absolute Neuts (auto) 14.4 K/mm3 (1.3-6.7) H 10/04/25 05:30 PT 16.3 Seconds (11.1-14.7) H 10/04/25 05:30 ABG pH 7.273 (7.350-7.450) L* 10/04/25 09:42 ABG pO2 196.3 mmHg (80.0-100.0) H 10/04/25 09:42 ABG HCO3 18.4 mEq/l (22.0-26.0) L 10/04/25 09:42 ABG O2 Content 13.9 %vol (16.0-22.0) L 10/04/25 09:42 Total Hemoglobin 9.7 g/dL (12.0-18.0) L 10/04/25 09:42 Chloride 114 mmol/L (98-107) H 10/04/25 05:30 Carbon Dioxide 16 mmol/L (22-30) L 10/04/25 05:30 BUN 27 mg/dL (9-20) H D 10/04/25 05:30 Creatinine 1.83 mg/dL (0.7-1.3) H 10/04/25 05:30 Estimated GFR 37 (59-) L 10/04/25 05:30 Glucose 117 mg/dL (65-110) H 10/04/25 05:30 POC Capillary Glucose 119 mg/dl (65-105) H 10/04/25 05:10 Lactic Acid 4.2 mmol/L (0.7-2.0) H* 10/04/25 08:39 Total Bilirubin 3.1 mg/dL (0.2-1.3) H 10/04/25 05:30 Alkaline Phosphatase 184 U/L (38-126) H 10/04/25 05:30 Total Protein 9.0 g/dL (6.3-8.2) H 10/04/25 05:30 Albumin 3.4 g/dL (3.5-5.1) L 10/04/25 05:30 Urine Appearance Cloudy (Clear) H 10/04/25 05:30 Urine Protein 3+ mg/dL (Negative) H 10/04/25 05:30 Ur Blood (Man) 3+ (Negative) H 10/04/25 05:30 Leukocyte Esterase Rfl Trace NGUYEN/UL (Negative) H 10/04/25 05:30 Urine RBC 21-50 /hpf (0-2) H 10/04/25 05:30 Urine Cocaine Screen Positive (Negative) A 10/04/25 05:30 U Cannabinoids Screen Positive (Negative) A 10/04/25 05:30 Most Recent Suicide Severity Rating Suicide Severity Rating NO RISK INDICATED 10/04/25 05:04
[2025-10-04 11:27] LABS: MRSA (PCR) NOT DETECTED (NOT DETECTE)
--- NOTE | 2025-10-04 12:19 | P.CONIN_ITS ---
Assessment and Plan Assessment and plan (1) Acute respiratory failure: Code(s): J96.00 - Acute respiratory failure, unspecified whether with hypoxia or hypercapnia Status: Acute Assessment and Plan: 10/04: Patient presented the ED via EMS with complains of generalized weakness, fevers, shortness of breath and fever. When EMS arrived to his house he was found on the ground, unable to get up off the floor. Patient's O2 sats were in the 80s on room air. Patient was placed on supplemental oxygen. In the ED patient was awake, alert, oriented was able to answer questions. O2 sats were improved but he was hypotensive, once he was given IV fluids per sepsis protocol he was more short of breath and was intubated -10/04: Intubated in the ER for impending respiratory failure likely related to CHF -currently on we mode of ventilation, patient was saturating in the mid 80s, I increased PEEP to 12, currently on 100% FiO2, increased rate to 22, tidal volume of 500. After these changes O2 sats have been in the 996-98% range -will wean FiO2 to maintain O2 sats > 92% -will start bronchodilators -sedated with fentanyl and Versed infusion, maintain RASS of 0 to -2 -daily SBT and SAT (2) Septic shock: Code(s): A41.9 - Sepsis, unspecified organism; R65.21 - Severe sepsis with septic shock Status: Acute Assessment and Plan: Patient with hypotension, likely related to pneumonia, possible lower abdomen cellulitis as seen on the CT scan. Could be related to heart failure -10/04: patient received 3.5 L IV fluid bolus in the ER, despite which his blood pressures remain low, is right-sided IJ central line was inserted, patient started on Levophed -upon arrival to the ICU patient was on Levophed 20 mcg/min with systolic blood pressures in the 80s, I advised the bedside RN to go up on the Levophed and ordered vasopressin -will maintain MAP > 65 mmHg or SBP > 100 mmHg -patient had does have a provided pulse pressure -will obtain troponin -will repeat echocardiogram echocardiogram -lactic acid was 5.9 on admission, repeat was 4.2 -will trend lactic acid -patient was given 1 dose of ceftriaxone and azithromycin in the ER -given history of alcoholism, cocaine abuse will switch to cefepime, vancomycin and azithromycin (10/04) -10/04: Blood cultures have been obtained -10/04: Will obtain urine culture -10/04: Will obtain sputum culture -10/04: Will check urine Legionella and strep pneumo antigen -chest x-ray shows Pulmonary vascular congestion, hold additional IV fluid -will give albumin for intravascular volume expansion 01/16/2025: Echocardiogram Summary 1. Left ventricular chamber dimension is normal. 2. Left ventricular systolic function is normal, estimated at 65-70%. 3. There is mildly increased left ventricular wall thickness. 4. The left ventricular diastolic function is grade I diastolic dysfunction. 5. Right ventricular systolic function is normal. 6. Left atrial chamber dimension is moderately enlarged. 7. Right atrial chamber dimension is moderately enlarged. 8. There is moderate aortic valve calcification. 9. There is moderate to severe aortic valve stenosis with a peak velocity of 407 cm/s, mean gradient of 43 mmHg, and aortic valve area of 1.2 cm2. 10. There is mild aortic valve regurgitation. 11. There is mild to moderate tricuspid valve regurgitation. 12. Pulmonary hypertension, estimated pulmonary arterial systolic pressure is 48 mmHg. (3) MARIO (acute kidney injury): Code(s): N17.9 - Acute kidney failure, unspecified Status: Acute Assessment and Plan: Acute kidney injury, creatinine 1.83 on admission, (1.87-2.19 in January of 2025, prior to that patient's creatinine was 1.10-1.20 in March of 2023) -patient received 3.5 L of IV fluid bolus in the ER -will continue to monitor renal function, electrolytes and urine output -will give albumin for intravascular volume expansion, hold additional IV fluids due to pulmonary vascular congestion on chest x-ray (4) Acute CHF: Code(s): I50.9 - Heart failure, unspecified Status: Acute Assessment and Plan: Patient has history of CHF, he does take furosemide at home, echocardiogram as above -chest x-ray shows pulmonary vascular congestion after receiving IV fluid -echocardiogram has been ordered (5) DM2 (diabetes mellitus, type 2): Code(s): E11.9 - Type 2 diabetes mellitus without complications Status: Acute Assessment and Plan: Accu-Cheks and sliding scale insulin -patient does take Lantus at home, will restart if needed (6) Thrombocytopenia: Code(s): D69.6 - Thrombocytopenia, unspecified Status: Acute Assessment and Plan: Chronic thrombocytopenia could be related to cirrhosis, alcohol use -patient was evaluated by Oncology on 01/28/2023 -continue to monitor, -will transfuse as needed (7) Cirrhosis: Code(s): K74.60 - Unspecified cirrhosis of liver Status: Acute Assessment and Plan: CT scan of the abdomen and pelvis showed spleen enlargement and cirrhosis -patient also has anasarca -elevated bilirubin (8) Anasarca: Code(s): R60.1 - Generalized edema Status: Acute Assessment and Plan: Likely related to cirrhosis (9) GI bleed: Code(s): K92.2 - Gastrointestinal hemorrhage, unspecified Status: Acute Assessment and Plan: OG tube has blood draining, could be related to trauma secondary to OG tube placement or variceal bleed or gastritis as patient has cirrhosis -Protonix IV q.12 hours -will have GI evaluate (10) Anemia: Code(s): D64.9 - Anemia, unspecified Status: Acute Assessment and Plan: Patient also has anemia with hemoglobin of 10.7 (which is close to his baseline) -will continue to monitor, transfuse for hemoglobin < 7.0 (11) Aortic stenosis: Code(s): I35.0 - Nonrheumatic aortic (valve) stenosis Status: Acute Assessment and Plan: Moderate to severe aortic valve stenosis with mean gradient of 43 mmHg and aortic valve area of 1.2 cm2 -will be cautious with IV fluids -repeat echocardiogram has been ordered Plan DVT prophylaxis: SCDs, no chemoprophylaxis due to blood in OG tube likely related to GI bleeding and thrombocytopenia Stress ulcer prophylaxis: Protonix IV q.12 hours Nutrition: NPO for now Code Status: Full code Critical Care Time Spent: 55 minutes Discussed with patient's Angelia, updated with patient's condition and plan of care. She is aware that patient is in septic shock, acute respiratory failure on full support from the mechanical ventilator and 2 blood pressure support medications. She is also aware that he is on antibiotics, that he has acute kidney injury. I discussed with her code status, she stated that he wants everything to be done but does not will not to be in a vegetative state. Will keep him full code for now, I also discussed with her that he is currently in a critical state and will continue to re-evaluate pain. I answered all questions Due to a high probability of clinically significant, life threatening deterioration, the patient required my highest level of preparedness to intervene emergently and I personally spent this critical care time directly and personally managing the patient. This critical care time included obtaining a history; examining the patient; pulse oximetry; ordering and review of studies; arranging urgent treatment with development of a management plan; evaluation of patient's response to treatment; frequent reassessment; and discussions with other providers. It was exclusive of separately billable procedures and treating other patients and teaching time. Please see Assessment and Plan section and the rest of the note for further information on patient assessment and treatment This dictation may have been done utilizing a voice recognition system. Attempts have been made to correct errors. However, there may be uncorrected grammatical, spelling, and recognitions errors present. [employer] Consult Note Consult date: 10/04/25 Reason for consult: Septic shock, pneumonia, pulmonary vascular congestion, colitis, acute kidney injury HPI: Blake Smith is a 65 year old male with past medical history of congestive heart failure, diabetes, peripheral neuropathy, chronic venous stasis changes, essential hypertension, BPH, ethanol use, cocaine and cannabis use presented the ED on 10/04/2025 via EMS with complains of shortness of breath, weakness, fevers, tachycardia. EMS was called to the house, patient was breathing heavy, 89% O2 sats on room air, found on the ground reportedly altered and unable to get up. Upon arrival to the ICU patient is alert, oriented, answering to questions, but was in respiratory distress, febrile, tachycardic and tachypneic. He was on supplemental oxygen and hypotensive. Patient was given a total of 3.5 L of IV fluids, remained hypotensive with lactic acid of 5.9. Repeat lactic of 4.2. WBC 615.1, hemoglobin 10.7, platelets 92 (chronic thrombocytopenia). Sodium 140, potassium 4.5, chloride 114, CO2 16, BUN 27, creatinine 1.83, blood sugars 117. PT 16.3, INR 1.3, PTT 33.6. AST 52, ALT 26, total bilirubin 3.1, alk-phos 184. Total CK 103. UA was positive for protein, blood, trace leukocyte esterase, urine RBC 21-50, no bacteria was seen. Urine tox screen was positive for cocaine, cannabinoids. Ethanol levels were 23. Influenza, RSV, SARS-CoV-2 PCR were negative 10/04/2025: CT scan of the chest abdomen and pelvis showed interstitial pulmonary edema and small right pleural effusion, superimposed pneumonia it is on interstitial lung disease. Colonic hepatic flexure wall thickening, colitis and/or malignancy, cirrhosis, gallbladder stones, lower abdominal wall skin thickening or cellulitis, spleen is enlarged. Chest x-ray on admission showed pulmonary vascular congestion, bilateral infiltrates, no pneumothorax ETT and right IJ in appropriate position Right IJ central line was inserted, patient was started on Levophed given 1 dose of ceftriaxone and azithromycin, transferred to the ICU for further management. He was started on fentanyl and Versed infusion for sedation Patient seen and examined upon arrival to the ICU, remains intubated on CMV mode of ventilation, peep of 10, 100% FiO2 with O2 sats in the mid 80s. I immediately made some changes to the ventilator, increase the PEEP to 12, increased ventilator rate to 22, currently on 100% FiO2 with O2 sats of 96-98%. Patient is sedated with fentanyl and Versed infusion, does not open his eyes or follow simple commands, does not withdraw to pain. Patient remains on Levophed at 20 mcg/min. I have ordered vasopressin since systolic blood pressures were in the 80s. 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 He has 3 children and is and lives with his . Code status full code Smoking packs per day: 0.5 Smoking cigarettes per day: 10.0 Years smoked: 15 Smoking pack-years: 7.50 Smoking status: Former smoker Tobacco type: cigarettes Second hand tobacco smoke exposure: Yes Alcohol intake: current Drinks per week: 4 Substance use: current Substance use type: marijuana and crack/cocaine Last use: 10/03/25 Lack of Transportation: No Lack of Food: Never True Current Housing: I Have Housing Concerned About Future Housing: No Difficulty Paying Gas/Electric Bills: YES Difficulty Paying for Meds: No Currently Unemployed: No Education: High School Diploma/GED Difficulty w/ Childcare or Family Care: No Living arrangements: with family Spiritual care concerns: No Meds Home Medications and Allergies Home Medications ?Medication ?Instructions ?Recorded ?Confirmed ?Type insulin glargine 100 unit/mL (3 28 unit subcut HS 01/0710/04/25 History mL) subcutaneous pen (Basaglar KwikPen U-100 Insulin) Held on 10/04/25. Instructions: Patient no longer taking insulin regular human 100 unit/mL 15 unit subcut ACHS 01/25/23 10/04/25 History injection solution (Humulin R Regular U-100 Insulin) ferrous sulfate 325 mg (65 mg 325 mg PO DAILY 01/15/25 10/04/25 History iron) tablet furosemide 20 mg tablet 40 mg PO DAILY 01/15/2509/09 History potassium chloride 10 mEq 20 meq PO DAILY 01/15/25 History tablet,extended release Held on 10/04/25. Instructions: Patient no longer taking carvedilol 3.125 mg tablet 3.125 mg PO Q12H 10/04/25 1 12/04/24 History Allergies Allergy/AdvReac Type Severity Reaction Status Date / Time oxycodone Allergy Intermediate Itching Verified 10/04/25 12:24 empagliflozin (From Allergy Mild Swelling Verified 10/04/25 12:24 Jardiance) Vital Signs Vital Signs - 24 hr 10/04/25 05:04 10/04/25 05:06 10/04/25 05:09 Temperature 98.3 F Pulse Rate 119 H 119 H 118 H Respiratory Rate 24 H 27 H Blood Pressure 161/54 H 161/54 H Pulse Oximetry 96 94 Oxygen Delivery Nasal Cannula Oxygen Flow Rate 2 Fraction of Inspired Oxygen 10/04/25 05:09 10/04/25 05:16 10/04/25 05:26 Temperature Pulse Rate 119 H Respiratory Rate 18 29 H Blood Pressure 155/81 H Pulse Oximetry 96 94 96 Oxygen Delivery Nasal Cannula Oxygen Flow Rate 2 2 Fraction of Inspired Oxygen 10/04/25 05:31 10/04/25 05:48 10/04/25 06:27 Temperature 102.7 F H Pulse Rate 115 H 111 H Respiratory Rate 22 H 30 H Blood Pressure 144/75 H 121/65 Pulse Oximetry 94 95 Oxygen Delivery Oxygen Flow Rate Fraction of Inspired Oxygen 10/04/25 06:31 10/04/25 06:51 10/04/25 06:51 Temperature Pulse Rate 111 H 104 H Respiratory Rate 28 H 29 H Blood Pressure 135/63 135/63 Pulse Oximetry 95 96 96 Oxygen Delivery Nasal Cannula Oxygen Flow Rate 2 Fraction of Inspired Oxygen 10/04/25 07:34 10/04/25 07:47 10/04/25 07:53 Temperature Pulse Rate 105 H 103 H 103 H Respiratory Rate 27 H 26 H 24 H Blood Pressure 103/56 L 62/36 L 75/58 L Pulse Oximetry 93 97 98 Oxygen Delivery Oxygen Flow Rate Fraction of Inspired Oxygen 10/04/25 07:55 10/04/25 08:27 10/04/25 08:31 Temperature Pulse Rate 101 H 98 98 Respiratory Rate 30 H 25 H 22 H Blood Pressure 97/54 L 80/44 L 67/49 L Pulse Oximetry 97 100 100 Oxygen Delivery Oxygen Flow Rate Fraction of Inspired Oxygen 10/04/25 08:42 10/04/25 08:46 10/04/25 08:56 Temperature 96.9 F L Pulse Rate 97 99 102 H Respiratory Rate 13 25 H Blood Pressure 67/49 L 72/47 L 92/63 L Pulse Oximetry 94 94 Oxygen Delivery Oxygen Flow Rate Fraction of Inspired Oxygen 10/04/25 09:01 10/04/25 09:03 10/04/25 09:06 Temperature 98.9 F 99.8 F H Pulse Rate 106 H 105 H 106 H Respiratory Rate 22 H 22 H Blood Pressure 69/56 L 69/56 L 96/63 L Pulse Oximetry 93 93 Oxygen Delivery Oxygen Flow Rate Fraction of Inspired Oxygen 10/04/25 09:07 10/04/25 09:11 10/04/25 09:13 Temperature 100.3 F H 100.5 F H Pulse Rate 106 H 106 H 115 H Respiratory Rate 22 H 13 Blood Pressure 96/63 L 107/62 110/59 L Pulse Oximetry 100 100 Oxygen Delivery Oxygen Flow Rate Fraction of Inspired Oxygen 10/04/25 09:16 10/04/25 09:19 10/04/25 09:20 Temperature 100.7 F H Pulse Rate 117 H 115 H 115 H Respiratory Rate 12 12 12 Blood Pressure 107/52 L Pulse Oximetry 99 Oxygen Delivery Oxygen Flow Rate Fraction of Inspired Oxygen 10/04/25 09:20 10/04/25 09:21 10/04/25 09:22 Temperature 100.8 F H 100.8 F H Pulse Rate 120 H 112 H Respiratory Rate 10 L Blood Pressure 83/47 L Pulse Oximetry 94 99 Oxygen Delivery Mechanical Ventilation Oxygen Flow Rate Fraction of Inspired Oxygen 100 10/04/25 09:26 10/04/25 09:28 10/04/25 09:29 Temperature 100.8 F H Pulse Rate 108 H 107 H 106 H Respiratory Rate 14 16 Blood Pressure 85/51 L 85/51 L Pulse Oximetry 99 Oxygen Delivery Oxygen Flow Rate Fraction of Inspired Oxygen 10/04/25 09:30 10/04/25 09:31 10/04/25 09:31 Temperature 100.9 F H Pulse Rate 106 H 107 H 106 H Respiratory Rate 16 24 H Blood Pressure 80/48 L 80/48 L Pulse Oximetry 99 Oxygen Delivery Oxygen Flow Rate Fraction of Inspired Oxygen 10/04/25 09:33 10/04/25 09:36 10/04/25 09:40 Temperature 100.9 F H 100.9 F H Pulse Rate 107 H 120 H 120 H Respiratory Rate 16 16 16 Blood Pressure 85/46 L 87/53 L Pulse Oximetry 98 96 Oxygen Delivery Oxygen Flow Rate Fraction of Inspired Oxygen 10/04/25 09:41 10/04/25 09:42 10/04/25 09:45 Temperature 100.9 F H 100.9 F H 100.9 F H Pulse Rate 120 H 119 H 119 H Respiratory Rate 16 16 16 Blood Pressure 92/50 L Pulse Oximetry 95 95 94 Oxygen Delivery Oxygen Flow Rate Fraction of Inspired Oxygen 10/04/25 09:46 10/04/25 09:50 10/04/25 09:51 Temperature 100.9 F H 100.9 F H Pulse Rate 120 H 120 H 120 H Respiratory Rate 16 16 16 Blood Pressure 94/49 L 96/54 L Pulse Oximetry 94 94 Oxygen Delivery Oxygen Flow Rate Fraction of Inspired Oxygen 10/04/25 09:56 10/04/25 09:57 10/04/25 09:58 Temperature 100.9 F H Pulse Rate 120 H 120 H Respiratory Rate 15 16 Blood Pressure 97/51 L Pulse Oximetry 93 91 Oxygen Delivery Mechanical Ventilation Oxygen Flow Rate Fraction of Inspired Oxygen 60 10/04/25 10:00 10/04/25 10:00 10/04/25 10:01 Temperature 100.9 F H 100.9 F H Pulse Rate 124 H 123 H 124 H Respiratory Rate 16 16 16 Blood Pressure 115/61 Pulse Oximetry 88 L 88 L Oxygen Delivery Oxygen Flow Rate Fraction of Inspired Oxygen 10/04/25 10:06 10/04/25 10:09 10/04/25 10:11 Temperature 100.8 F H 100.8 F H Pulse Rate 125 H 125 H 124 H Respiratory Rate 16 16 Blood Pressure 117/62 112/57 L Pulse Oximetry 88 L 90 91 Oxygen Delivery Mechanical Ventilation Oxygen Flow Rate Fraction of Inspired Oxygen 85 10/04/25 10:16 10/04/25 10:21 10/04/25 10:26 Temperature 100.7 F H 100.7 F H 100.6 F H Pulse Rate 123 H 123 H 122 H Respiratory Rate 16 16 16 Blood Pressure 106/60 106/54 L 103/52 L Pulse Oximetry 92 92 92 Oxygen Delivery Oxygen Flow Rate Fraction of Inspired Oxygen 10/04/25 10:31 10/04/25 10:36 10/04/25 10:41 Temperature 100.6 F H 100.6 F H 100.5 F H Pulse Rate 122 H 122 H 122 H Respiratory Rate 16 16 16 Blood Pressure 106/55 L 103/54 L 103/53 L Pulse Oximetry 92 92 92 Oxygen Delivery Oxygen Flow Rate Fraction of Inspired Oxygen 10/04/25 10:46 10/04/25 10:51 10/04/25 10:56 Temperature 100.5 F H 100.4 F H 100.3 F H Pulse Rate 121 H 121 H 121 H Respiratory Rate 16 18 16 Blood Pressure 99/54 L 100/49 L 101/54 L Pulse Oximetry 92 92 92 Oxygen Delivery Oxygen Flow Rate Fraction of Inspired Oxygen 10/04/25 11:01 10/04/25 11:09 10/04/25 11:44 Temperature 100.3 F H Pulse Rate 121 H Respiratory Rate 16 Blood Pressure 95/52 L 82/35 L Pulse Oximetry 92 Oxygen Delivery Oxygen Flow Rate Fraction of Inspired Oxygen 85 10/04/25 11:44 10/04/25 11:48 10/04/25 11:58 Temperature Pulse Rate 117 H 118 H Respiratory Rate Blood Pressure 82/35 L 84/37 L 94/43 L Pulse Oximetry Oxygen Delivery Oxygen Flow Rate Fraction of Inspired Oxygen 10/04/25 11:59 10/04/25 11:59 10/04/25 12:13 Temperature 99.7 F H Pulse Rate 120 H 120 H 119 H Respiratory Rate 22 H 22 H 22 H Blood Pressure 96/46 L Pulse Oximetry 98 Oxygen Delivery Oxygen Flow Rate Fraction of Inspired Oxygen Exam 2 Narrative: General: Intubated, sedated, in no acute distress HEENT:? Pupils equal and reactive, sclera is icteric, ETT in place Neck:? Thick neck, right IJ central line in place Respiratory:? Coarse breath sounds bilaterally, decreased at bases, no wheezing Cardiac:? S1-S2 is normal, sinus tachycardia Abdomen:? Soft, nontender, nondistended, obese, hypoactive bowel sounds, thickening of the skin on the lower part of the abdomen with no redness but warm Extremities:? Bilateral lower extremity pitting edema, dopplerable pedal pulses Neuro:? Patient is intubated, sedated, does not open his eyes, follows simple commands a withdraws to pain Skin:? Chronic venous stasis changes and chronic skin discoloration which is likely due to diabetes according the . Patient also has a callus on the ball of the right toe Psych:? Unable to assess at this time Results Labs 10/04/25 05:30 10/04/25 05:30 Labs: Short CBC 10/04/25 Range/Units 05:30 WBC 16.1 H (4.5-10.0) K/mm3 Hgb 10.7 L (14.0-18.0) g/dL Hct 34.5 L (42.0-52.0) % Plt Count 92 L D (150-375) k/mm3 BMP 10/04/25 05:30 Sodium 140 Potassium 4.5 Chloride 114 H Carbon Dioxide 16 L BUN 27 H D Creatinine 1.83 H Glucose 117 H Calcium 8.8 Cardiac Enzymes 10/04/25 10/04/25 Range/Units 05:30 05:30 Total Creatine Kinase 103 Cancelled (55-170) U/L Liver Function 10/04/25 Range/Units 05:30 Total Bilirubin 3.1 H (0.2-1.3) mg/dL AST 52 (17-59) U/L ALT 26 (6-50) U/L Alkaline Phosphatase 184 H (38-126) U/L Albumin 3.4 L (3.5-5.1) g/dL Urine 10/04/25 Range/Units 05:30 Urine Color Yellow (Yellow) Urine Appearance Cloudy H (Clear) Urine pH 5.0 (5.0-9.0) Ur Specific [place] 1.012 (1.001-1.035) Urine Protein 3+ H (Negative) mg/dL Urine Glucose (UA) Negative (Negative) mg/dL Quality VTE Prophylaxis VTE prophylaxis: mechanical ordered If No VTE Prophylaxis Answer both mechanical and pharmacologic: Reason no pharmacologic proph: medical contraindication (Thrombocytopenia and GI bleed) active bleeding/bleeding risk and thrombocytopenia Hospitalist MIPS Advance Care Plan I have confirmed that the patient's Advanced Care Plan is present, code status is documented, or surrogate decision maker is listed in patient medical record.: Yes Medication Reconciliation I have utilized all available resources to obtain, update and review the patients current medications (includes all prescriptions, OTC, herbals, cannabis, and nutritional supplements).: Yes
[2025-10-04] MEDS: VASOPRESSIN INJ 100 UNITS in DEXTROSE 5% 95 ML IV CONT (12:32)
--- NOTE | 2025-10-04 12:44 | PM.IMHP ---
H&P: HPI History of Present Illness Date/Time: 10/04/25 12:44 Chief Complaint: Fever Narrative: 65yo male with history of CKD, CHF, DM, BPH, and HTN who presents to the ED for SOB, weakness, and fever. EMS called a code sepsis from the household based on vital signs and physical exam. Patient was in respiratory distress and breathing heavy. His SpO2 was 89% on room air. He was found down on the ground reportedly altered and not able to get up. Patient on arrival to the ED was awake, alert and oriented answering questions. He was febrile, tachycardic, tachypneic, and hypoxic requiring supplemental oxygen for assistance. He became HoTN with BP 62/36. No specific complaints of chest pain, abdominal pain, nausea, vomiting, diarrhea. No injuries reported. He states he just does not feel well. No sick contacts at home. No recent hospitalizations per patient. Lactic was 5.9 -> 4.2. COVID, RSV and Influenza PCR was negative. WBC 16K with chronic thrombocytopenia. [place] metabolic acidosis. CKD noted and stable with Cr at 1.8. MRSA nasal swab negative. UA not consistent with UTI. UDS positive for cocaine and cannabinoids. EtOH level 23. CXR showing no acute cardiopulmonary findings but possibly pulmonary fibrosis. Head CT showing no acute intracranial findings. CT Ch/A/P showing interstitial pulmonary edema, small right pleural effusion, colonic hepatic flexure wall thickening consistent with colitis and/or malignancy and cirrhosis. Cannot exclude superimposed pneumonitis or ILD. Patient's condition deteriorated. Central line was placed and was started on pressors. His respiratory condition deteriorated requiring intubation and mechanical ventilation. ABG 7.27/41/196 on mechanical ventilation. He was admitted to the ICU for further care. Restaurant Worker was consulted. Patient sedated and unable to provide hx. No family in the room at this time. Review of Systems Review of Systems: ROS unobtainable: Yes unobtainable due to endotracheal tube PMFSH Past Medical History Medical History (Updated 10/04/25 @ 13:28 by Odin Mejia MD) Aortic stenosis Echo January 2025 moderate to severe aortic valve stenosis with a peak velocity of 407 cm/s, mean gradient of 43 mmHg, and aortic valve area of 1.2 cm2. 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 He has 3 children and is and lives with his . Code status full code Smoking packs per day: 0.5 Smoking cigarettes per day: 10.0 Years smoked: 15 Smoking pack-years: 7.50 Smoking status: Former smoker Tobacco type: cigarettes Second hand tobacco smoke exposure: Yes Alcohol intake: current Drinks per week: 4 Substance use: current Substance use type: marijuana and crack/cocaine Last use: 10/03/25 Lack of Transportation: No Lack of Food: Never True Current Housing: I Have Housing Concerned About Future Housing: No Difficulty Paying Gas/Electric Bills: YES Difficulty Paying for Meds: No Currently Unemployed: No Education: High School Diploma/GED Difficulty w/ Childcare or Family Care: No Living arrangements: with family Spiritual care concerns: No Meds Home Medications and Allergies Home Medications ?Medication ?Instructions ?Recorded ?Confirmed ?Type insulin glargine 100 unit/mL (3 28 unit subcut HS 01/25/23 10/04/25 History mL) subcutaneous pen (Basaglar KwikPen U-100 Insulin) Held on 10/04/25. Instructions: Patient no longer taking insulin regular human 100 unit/mL 15 unit subcut ACHS 01/25/23 10/04/25 History injection solution (Humulin R Regular U-100 Insulin) ferrous sulfate 325 mg (65 mg 325 mg PO DAILY 01/15/25 10/04/25 History iron) tablet furosemide 20 mg tablet 40 mg PO DAILY 01/15/25 10/04/25 History potassium chloride 10 mEq 20 meq PO DAILY 01/15/25 10/04/25 History tablet,extended release Held on 10/04/25. Instructions: Patient no longer taking carvedilol 3.125 mg tablet 3.125 mg PO Q12H 10/04/25 10/04/25 History Allergies Allergy/AdvReac Type Severity Reaction Status Date / Time oxycodone Allergy Intermediate Itching Verified 10/04/25 12:24 empagliflozin (From Allergy Mild Swelling Verified 10/04/25 12:24 Jardiance) Vital Signs Vital Signs - 24 hr 10/04/25 05:04 10/04/25 05:06 10/04/25 05:09 Temperature 98.3 F Pulse Rate 119 H 119 H 118 H Respiratory Rate 24 H 27 H Blood Pressure 161/54 H 161/54 H Pulse Oximetry 96 94 Oxygen Delivery Nasal Cannula Oxygen Flow Rate 2 Fraction of Inspired Oxygen 10/04/25 05:09 10/04/25 05:16 10/04/25 05:26 Temperature Pulse Rate 119 H Respiratory Rate 18 29 H Blood Pressure 155/81 H Pulse Oximetry 96 94 96 Oxygen Delivery Nasal Cannula Oxygen Flow Rate 2 2 Fraction of Inspired Oxygen 10/04/25 05:31 10/04/25 05:48 10/04/25 06:27 Temperature 102.7 F H Pulse Rate 115 H 111 H Respiratory Rate 22 H 30 H Blood Pressure 144/75 H 121/65 Pulse Oximetry 94 95 Oxygen Delivery Oxygen Flow Rate Fraction of Inspired Oxygen 10/04/25 06:31 10/04/25 06:51 10/04/25 06:51 Temperature Pulse Rate 111 H 104 H Respiratory Rate 28 H 29 H Blood Pressure 135/63 135/63 Pulse Oximetry 95 96 96 Oxygen Delivery Nasal Cannula Oxygen Flow Rate 2 Fraction of Inspired Oxygen 10/04/25 07:34 10/04/25 07:47 10/04/25 07:53 Temperature Pulse Rate 105 H 103 H 103 H Respiratory Rate 27 H 26 H 24 H Blood Pressure 103/56 L 62/36 L 75/58 L Pulse Oximetry 93 97 98 Oxygen Delivery Oxygen Flow Rate Fraction of Inspired Oxygen 10/04/25 07:55 10/04/25 08:27 10/04/25 08:31 Temperature Pulse Rate 101 H 98 98 Respiratory Rate 30 H 25 H 22 H Blood Pressure 97/54 L 80/44 L 67/49 L Pulse Oximetry 97 100 100 Oxygen Delivery Oxygen Flow Rate Fraction of Inspired Oxygen 10/04/25 08:42 10/04/25 08:46 10/04/25 08:56 Temperature 96.9 F L Pulse Rate 97 99 102 H Respiratory Rate 13 25 H Blood Pressure 67/49 L 72/47 L 92/63 L Pulse Oximetry 94 94 Oxygen Delivery Oxygen Flow Rate Fraction of Inspired Oxygen 10/04/25 09:01 10/04/25 09:03 10/04/25 09:06 Temperature 98.9 F 99.8 F H Pulse Rate 106 H 105 H 106 H Respiratory Rate 22 H 22 H Blood Pressure 69/56 L 69/56 L 96/63 L Pulse Oximetry 93 93 Oxygen Delivery Oxygen Flow Rate Fraction of Inspired Oxygen 10/04/25 09:07 10/04/25 09:11 10/04/25 09:13 Temperature 100.3 F H 100.5 F H Pulse Rate 106 H 106 H 115 H Respiratory Rate 22 H 13 Blood Pressure 96/63 L 107/62 110/59 L Pulse Oximetry 100 100 Oxygen Delivery Oxygen Flow Rate Fraction of Inspired Oxygen 10/04/25 09:16 10/04/25 09:19 10/04/25 09:20 Temperature 100.7 F H Pulse Rate 117 H 115 H 115 H Respiratory Rate 12 12 12 Blood Pressure 107/52 L Pulse Oximetry 99 Oxygen Delivery Oxygen Flow Rate Fraction of Inspired Oxygen 10/04/25 09:20 10/04/25 09:21 10/04/25 09:22 Temperature 100.8 F H 100.8 F H Pulse Rate 120 H 112 H Respiratory Rate 10 L Blood Pressure 83/47 L Pulse Oximetry 94 99 Oxygen Delivery Mechanical Ventilation Oxygen Flow Rate Fraction of Inspired Oxygen 100 10/04/25 09:26 10/04/25 09:28 10/04/25 09:29 Temperature 100.8 F H Pulse Rate 108 H 107 H 106 H Respiratory Rate 14 16 Blood Pressure 85/51 L 85/51 L Pulse Oximetry 99 Oxygen Delivery Oxygen Flow Rate Fraction of Inspired Oxygen 10/04/25 09:30 10/04/25 09:31 10/04/25 09:31 Temperature 100.9 F H Pulse Rate 106 H 107 H 106 H Respiratory Rate 16 24 H Blood Pressure 80/48 L 80/48 L Pulse Oximetry 99 Oxygen Delivery Oxygen Flow Rate Fraction of Inspired Oxygen 10/04/25 09:33 10/04/25 09:36 10/04/25 09:40 Temperature 100.9 F H 100.9 F H Pulse Rate 107 H 120 H 120 H Respiratory Rate 16 16 16 Blood Pressure 85/46 L 87/53 L Pulse Oximetry 98 96 Oxygen Delivery Oxygen Flow Rate Fraction of Inspired Oxygen 10/04/25 09:41 10/04/25 09:42 10/04/25 09:45 Temperature 100.9 F H 100.9 F H 100.9 F H Pulse Rate 120 H 119 H 119 H Respiratory Rate 16 16 16 Blood Pressure 92/50 L Pulse Oximetry 95 95 94 Oxygen Delivery Oxygen Flow Rate Fraction of Inspired Oxygen 10/04/25 09:46 10/04/25 09:50 10/04/25 09:51 Temperature 100.9 F H 100.9 F H Pulse Rate 120 H 120 H 120 H Respiratory Rate 16 16 16 Blood Pressure 94/49 L 96/54 L Pulse Oximetry 94 94 Oxygen Delivery Oxygen Flow Rate Fraction of Inspired Oxygen 10/04/25 09:56 10/04/25 09:57 10/04/25 09:58 Temperature 100.9 F H Pulse Rate 120 H 120 H Respiratory Rate 15 16 Blood Pressure 97/51 L Pulse Oximetry 93 91 Oxygen Delivery Mechanical Ventilation Oxygen Flow Rate Fraction of Inspired Oxygen 60 10/04/25 10:00 10/04/25 10:00 10/04/25 10:01 Temperature 100.9 F H 100.9 F H Pulse Rate 124 H 123 H 124 H Respiratory Rate 16 16 16 Blood Pressure 115/61 Pulse Oximetry 88 L 88 L Oxygen Delivery Oxygen Flow Rate Fraction of Inspired Oxygen 10/04/25 10:06 10/04/25 10:09 10/04/25 10:11 Temperature 100.8 F H 100.8 F H Pulse Rate 125 H 125 H 124 H Respiratory Rate 16 16 Blood Pressure 117/62 112/57 L Pulse Oximetry 88 L 90 91 Oxygen Delivery Mechanical Ventilation Oxygen Flow Rate Fraction of Inspired Oxygen 85 10/04/25 10:16 10/04/25 10:21 10/04/25 10:26 Temperature 100.7 F H 100.7 F H 100.6 F H Pulse Rate 123 H 123 H 122 H Respiratory Rate 16 16 16 Blood Pressure 106/60 106/54 L 103/52 L Pulse Oximetry 92 92 92 Oxygen Delivery Oxygen Flow Rate Fraction of Inspired Oxygen 10/04/25 10:31 10/04/25 10:36 10/04/25 10:41 Temperature 100.6 F H 100.6 F H 100.5 F H Pulse Rate 122 H 122 H 122 H Respiratory Rate 16 16 16 Blood Pressure 106/55 L 103/54 L 103/53 L Pulse Oximetry 92 92 92 Oxygen Delivery Oxygen Flow Rate Fraction of Inspired Oxygen 10/04/25 10:46 10/04/25 10:51 10/04/25 10:56 Temperature 100.5 F H 100.4 F H 100.3 F H Pulse Rate 121 H 121 H 121 H Respiratory Rate 16 18 16 Blood Pressure 99/54 L 100/49 L 101/54 L Pulse Oximetry 92 92 92 Oxygen Delivery Oxygen Flow Rate Fraction of Inspired Oxygen 10/04/25 11:01 10/04/25 11:09 10/04/25 11:44 Temperature 100.3 F H Pulse Rate 121 H Respiratory Rate 16 Blood Pressure 95/52 L 82/35 L Pulse Oximetry 92 Oxygen Delivery Oxygen Flow Rate Fraction of Inspired Oxygen 85 10/04/25 11:44 10/04/25 11:46 10/04/25 11:48 Temperature Pulse Rate 117 H 118 H 118 H Respiratory Rate Blood Pressure 82/35 L 84/37 L Pulse Oximetry 94 Oxygen Delivery Mechanical Ventilation Oxygen Flow Rate Fraction of Inspired Oxygen 90 10/04/25 11:58 10/04/25 11:59 10/04/25 11:59 Temperature Pulse Rate 120 H 120 H Respiratory Rate 22 H 22 H Blood Pressure 94/43 L Pulse Oximetry Oxygen Delivery Oxygen Flow Rate Fraction of Inspired Oxygen 10/04/25 12:13 Temperature 99.7 F H Pulse Rate 119 H Respiratory Rate 22 H Blood Pressure 96/46 L Pulse Oximetry 98 Oxygen Delivery Oxygen Flow Rate Fraction of Inspired Oxygen Exam Narrative: Tm 100.9 99.7 111/48 122 22 98% MV Gen - ill appearing male lying semi recumbent in bed intubated and sedated. HEENT - normocephalic. Atraumatic. Pupils 2-3mm and poorly reactive. Nares patent. ETT and OGT secured. Red blood in OG tubing Neck - neck was supple. Right TLC secured. Chest - lungs are coarse anteriorly and in the flanks. CV - tachycardic, regular. S1-S2. Coarse 2/6 murmur t/o the precordium Abd - abdomen was soft, obese, +BS - Quinonez secured draining clear yellow urine Ext - trace pedal edema. 1+ DP pulses bilaterally. Neuro - sedated Psych - up able to assess Skin - warm and dry. Dark purplish discoloration bilateral shins c/w chronic venous stasis skin changes H&P: Results Labs Labs: Short CBC 10/04/25 Range/Units 05:30 WBC 16.1 H (4.5-10.0) K/mm3 Hgb 10.7 L (14.0-18.0) g/dL Hct 34.5 L (42.0-52.0) % Plt Count 92 L D (150-375) k/mm3 BMP 10/04/25 05:30 Sodium 140 Potassium 4.5 Chloride 114 H Carbon Dioxide 16 L BUN 27 H D Creatinine 1.83 H Glucose 117 H Calcium 8.8 Cardiac Enzymes 10/04/25 10/04/25 Range/Units 05:30 05:30 Total Creatine Kinase 103 Cancelled (55-170) U/L Liver Function 10/04/25 Range/Units 05:30 Total Bilirubin 3.1 H (0.2-1.3) mg/dL AST 52 (17-59) U/L ALT 26 (6-50) U/L Alkaline Phosphatase 184 H (38-126) U/L Albumin 3.4 L (3.5-5.1) g/dL Urine 10/04/25 Range/Units 05:30 Urine Color Yellow (Yellow) Urine Appearance Cloudy H (Clear) Urine pH 5.0 (5.0-9.0) Ur Specific [place] 1.012 (1.001-1.035) Urine Protein 3+ H (Negative) mg/dL Urine Glucose (UA) Negative (Negative) mg/dL Assessment and Plan Assessment and plan (1) Acute respiratory failure: Code(s): J96.00 - Acute respiratory failure, unspecified whether with hypoxia or hypercapnia Status: Acute Assessment and Plan: Patient presents with SOB, weakness, and fever and found to have acute resp failure from septic shock. His respiratory condition deteriorated requiring intubation and mechanical ventilation. ABG 7./41/196 on mechanical ventilation. He was admitted to the ICU for further care. Restaurant Worker was consulted. Patient on sedation. Xopenex/Atrovent started (2) Septic shock: Code(s): A41.9 - Sepsis, unspecified organism; R65.21 - Severe sepsis with septic shock Status: Acute Assessment and Plan: Patient found to have septic shock with lactic acidosis, resp failure, leukocytosis, tachycardia Lactic 5.9 -> 4.2. pH 7.27 felt related to the lactic acidosis and resp failure. COVID, RSV and Influenza PCR was negative. He received LR 30cc/kg ideal body weight of 3L and a 4th liter ordered by ED physician. Central line placed and started on Levophed. Levophed at max dose and AUTO SERVICE WRITER added. BCx 10/04 pending UCx 10/04 pending Started on Rocephin, Flagyl and Azithromycin but changed to Flagyl, Azithro, Vanc and Cefepime (3) GI bleed: Code(s): K92.2 - Gastrointestinal hemorrhage, unspecified Status: Acute Assessment and Plan: OG tube with red blood in tubing. Could be related to GI bleed or from trauma. Consider varices; He does have cirrhosis with splenomegaly but distal esophagus and stomach were unremarkable on the CT scan. Monitor HH and transfuse as needed. GI consulted. (4) Colitis: Code(s): K52.9 - Noninfective gastroenteritis and colitis, unspecified Status: Acute Assessment and Plan: CT showing wall thickening at the hepatic flexure. Normal appendix. Differential included colitis vs malignancy. Doubt this is causing his septic shock GI consulted Continue IV abx including Flagyl (5) CKD (chronic kidney disease): Code(s): N18.9 - Chronic kidney disease, unspecified Status: Acute Assessment and Plan: Cr earlier this year was 1.87-2.2 Cr on presentation here was 1.8 and felt to be within his baseline Monitor renal fxn, UOP and electrolytes (6) History of CHF (congestive heart failure): Code(s): Z86.79 - Personal history of other diseases of the circulatory system Status: Acute Assessment and Plan: Patient seen in January for SOB and felt to have CHF exacerbation. Echo January 2025 showing EF 65-70%, grade 1 diastolic dysfunction, normal RV systolic function, moderate-severe with valve area of 1.2cm2, mild-moderate TR and pulmonary hypertension (PASP 48mmHg). Patient takes Coreg, Lasix and potassium at home. Echo repeated. Follow-up on results. (7) Thrombocytopenia: Code(s): D69.6 - Thrombocytopenia, unspecified Status: Acute Assessment and Plan: Patient has a long history of thrombocytopenia as far back as 2018. Platelet count normally runs 50-60K range Platelet count was 92K on admission but suspect this will decrease. Etiology of the thrombocytopenia is unclear but suspect related to his cirrhosis and splenomegaly with sequestration. (8) DM2 (diabetes mellitus, type 2): Code(s): E11.9 - Type 2 diabetes mellitus without complications Status: Acute Assessment and Plan: Patient is on Basaglar at night as well as sliding scale insulin. A1c was 8.5% in January. Start AccuCheks covering with sliding scale. Hypoglycemia protocol available as needed. Check A1c. Check TSH. (9) Cirrhosis: Code(s): K74.60 - Unspecified cirrhosis of liver Status: Acute Assessment and Plan: Patient with known cirrhosis presumably from alcohol abuse. Unclear if he has had a full workup for his cirrhosis. Will check hepatitis panel but defer further workup to the outpatient setting (10) Drug abuse: Code(s): F19.10 - Other psychoactive substance abuse, uncomplicated Status: Acute Assessment and Plan: Patient has a long history of cocaine abuse thus far back as at least 2017 on chart review. Patient will be educated about the benefits of abstaining from drug use when he is off mechanical ventilation. (11) Aortic stenosis: Code(s): I35.0 - Nonrheumatic aortic (valve) stenosis Status: Acute Assessment and Plan: Echo January 2025 showing moderate to severe aortic valve stenosis with aortic valve area of 1.2 cm2. Repeat echo ordered. Plan Code status - Full DVT prophylaxis -SCDs
[2025-10-04] MEDS: SODIUM BICARBONATE 8.4% 50 MEQ/50 ML SYRINGE 100 MEQ IV PUSH (13:02)
[2025-10-04] MEDS: CEFEPIME 2 GM in SODIUM CHLORIDE 0.9% IV 50 ML 100 ML IVPB ×2 (13:07→21:44)
[2025-10-04 13:09] LABS: Creatine Kinase 1210 U/L (55-170)
[2025-10-04] MEDS: ALBUMIN HUMAN 25% 25 GM/100 ML 100 ML IVPB ×2 (13:13→18:21)
[2025-10-04] MEDS: PANTOPRAZOLE SODIUM IV 40 MG VIAL IV PUSH ×2 (13:21→21:25)
[2025-10-04] MEDS: CENTRAL LINE FLUSH 10 ML IV PUSH ×2 (13:21→22:00)
[2025-10-04 13:22] LABS: Troponin I 4.720 ng/mL (0.000-0.034)
[2025-10-04] MEDS: VANCOMYCIN 2,000 MG/NS 500 ML 2,000 MG/500 ML BAG 250 MG IVPB (13:24)
[2025-10-04 13:57] LABS: NT Pro B Type Natriuretic Pept 10900 pg/mL (19.9-100)
--- NOTE | 2025-10-04 14:10 | ADMGEN ---
This patient, Blake Smith, was admitted to Intensive Care Unit- 6 at approximately 1130. Patient/family oriented to hospital policies and general routines including ID bracelet, bed and alarms, visiting hours, pain management, procedures, bathroom and other care routines, personal items, smoking policy, room service/diet, and visiting hours. Information on how to activate the Rapid Response Team has been discussed. Patient/Family are encouraged to report perceived risks to care and to ask questions if they do not understand what they are told or what they should do.
--- NOTE | 2025-10-04 14:14 | WPDGICN ---
Assessment and Plan Assessment and plan (1) GI bleed: Code(s): K92.2 - Gastrointestinal hemorrhage, unspecified Status: Acute Assessment and Plan: he has septic shock noted some blood in NGT but small amount, hemoglobin actually is above his baseline but this could also hemoconcentration continue iv protonix will monitor for more signs of obvious bleeding probably is esophagitis, gastritis, could be also portal htn, etc less likely active bleeding from ulcer or varices no need of urgent egd unless any acute changes will follow along (2) Cirrhosis: Code(s): K74.60 - Unspecified cirrhosis of liver Status: Acute Assessment and Plan: at least since 2018 based on imaging MELD score 19 says that they were told that he had liver disease and recommendation to see liver specialist but he has not seen one yet he never had scopes- this can be arranged when he is more stable (3) Septic shock: Code(s): A41.9 - Sepsis, unspecified organism; R65.21 - Severe sepsis with septic shock Status: Acute Assessment and Plan: on abx, also had fever (4) Acute respiratory failure: Code(s): J96.00 - Acute respiratory failure, unspecified whether with hypoxia or hypercapnia Status: Acute Assessment and Plan: he was intubated in icu (5) Anasarca: Code(s): R60.1 - Generalized edema Status: Acute (6) Chronic anemia: Code(s): D64.9 - Anemia, unspecified Status: Acute Assessment and Plan: this is chronic, will monitor for changes (7) Thrombocytopenia: Code(s): D69.6 - Thrombocytopenia, unspecified Status: Acute Assessment and Plan: chronic and probably from cirrhosis (8) Drug abuse: Code(s): F19.10 - Other psychoactive substance abuse, uncomplicated Status: Acute Assessment and Plan: he drinks alcohol and uses cocaine- last time yesterday (9) MARIO (acute kidney injury): Code(s): N17.9 - Acute kidney failure, unspecified Status: Acute Assessment and Plan: treated (10) Lactic acidosis: Code(s): E87.20 - Acidosis, unspecified Status: Acute (11) Alcohol abuse: Code(s): F10.10 - Alcohol abuse, uncomplicated Status: Acute GI Consult Note Consult date/time: 10/04/25 14:14 Reason for consult: coffee ground in NGT HPI: Blake Smith is a 65 year old male with past medical history of congestive heart failure, diabetes, peripheral neuropathy, cirrhosis (2018 ultrasound showed cirrhosis), chronic venous stasis changes, essential hypertension, BPH, ethanol use (1/2 pint 3 times a week), cocaine and cannabis came here after shortness of breath, weakness, tachycardia. History is obtained from records and who is at bedside since patient is intubated. She says that yesterday he had half pint whiskey and used cocaine then became sick. EMS was called to the house, he was lethargic and in respiratory distress. He was hypotensive, given a total of 3.5 L of IV fluids, remained hypotensive with lactic acid of 5.9. Repeat lactic of 4.2. hemoglobin 10.7 which is above baseline), platelets 92 (chronic thrombocytopenia). BUN 27, creatinine 1.83, blood sugars 117. PT 16.3, INR 1.3, PTT 33.6. AST 52, ALT 26, total bilirubin 3.1, alk-phos 184. Total CK 103. UA was positive for protein, blood, trace leukocyte esterase, urine RBC 21-50, no bacteria was seen. Urine tox screen was positive for cocaine, cannabinoids. Ethanol levels were 23. Influenza, RSV, SARS-CoV-2 PCR were negative. 10/04/2025: CT scan of the chest abdomen and pelvis showed interstitial pulmonary edema and small right pleural effusion, superimposed pneumonia it is on interstitial lung disease. Colonic hepatic flexure wall thickening, colitis and/or malignancy, cirrhosis, gallbladder stones, lower abdominal wall skin thickening or cellulitis, spleen is enlarged. Chest x-ray on admission showed pulmonary vascular congestion, bilateral infiltrates, no pneumothorax ETT and right IJ in appropriate position Right IJ central line was inserted, patient was started on Levophed given 1 dose of ceftriaxone and azithromycin, transferred to the ICU for further management. He was started on fentanyl and Versed infusion for sedation. We are called because staff noted coffee ground material in NGT Review of Systems Review of Systems: ROS unobtainable: Yes unobtainable due to endotracheal tube and unobtainable due to mental status PMFSH Past Medical History Medical History (Updated 10/04/25 @ 14:20 by Delfin Tracey MD) Alcohol abuse Lactic acidosis Chronic anemia Aortic stenosis Echo January 2025 moderate to severe aortic valve stenosis with a peak velocity of 407 cm/s, mean gradient of 43 mmHg, and aortic valve area of 1.2 cm2. 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 He has 3 children and is and lives with his . Code status full code Smoking packs per day: 0.5 Smoking cigarettes per day: 10.0 Years smoked: 15 Smoking pack-years: 7.50 Smoking status: Former smoker Tobacco type: cigarettes Second hand tobacco smoke exposure: Yes Alcohol intake: current Drinks per week: 4 Substance use: current Substance use type: marijuana and crack/cocaine Last use: 10/03/25 Lack of Transportation: No Lack of Food: Never True Current Housing: I Have Housing Concerned About Future Housing: No Difficulty Paying Gas/Electric Bills: YES Difficulty Paying for Meds: No Currently Unemployed: No Education: High School Diploma/GED Difficulty w/ Childcare or Family Care: No Living arrangements: with family Spiritual care concerns: No Meds Home Medications and Allergies Home Medications ?Medication ?Instructions ?Recorded ?Confirmed ?Type insulin glargine 100 unit/mL (3 28 unit subcut HS 01/25/23 10/04/25 History mL) subcutaneous pen (Basaglar KwikPen U-100 Insulin) Held on 10/04/25. Instructions: Patient no longer taking insulin regular human 100 unit/mL 15 unit subcut ACHS 01/25/23 10/04/25 History injection solution (Humulin R Regular U-100 Insulin) ferrous sulfate 325 mg (65 mg 325 mg PO DAILY 01/15/25 10/04/25 History iron) tablet furosemide 20 mg tablet 40 mg PO DAILY 01/15/25 10/04/25 History potassium chloride 10 mEq 20 meq PO DAILY 01/15/25 10/04/25 History tablet,extended release Held on 10/04/25. Instructions: Patient no longer taking carvedilol 3.125 mg tablet 3.125 mg PO Q12H 10/04/25 10/04/25 History Allergies Allergy/AdvReac Type Severity Reaction Status Date / Time oxycodone Allergy Intermediate Itching Verified 10/04/25 12:24 empagliflozin (From Allergy Mild Swelling Verified 10/04/25 12:24 Jardiance) Vital Signs Vital Signs - 24 hr 10/04/25 05:04 10/04/25 05:06 10/04/25 05:09 Temperature 98.3 F Pulse Rate 119 H 119 H 118 H Respiratory Rate 24 H 27 H Blood Pressure 161/54 H 161/54 H Pulse Oximetry 96 94 Oxygen Delivery Nasal Cannula Oxygen Flow Rate 2 Fraction of Inspired Oxygen 10/04/25 05:09 10/04/25 05:16 10/04/25 05:26 Temperature Pulse Rate 119 H Respiratory Rate 18 29 H Blood Pressure 155/81 H Pulse Oximetry 96 94 96 Oxygen Delivery Nasal Cannula Oxygen Flow Rate 2 2 Fraction of Inspired Oxygen 10/04/25 05:31 10/04/25 05:48 10/04/25 06:27 Temperature 102.7 F H Pulse Rate 115 H 111 H Respiratory Rate 22 H 30 H Blood Pressure 144/75 H 121/65 Pulse Oximetry 94 95 Oxygen Delivery Oxygen Flow Rate Fraction of Inspired Oxygen 10/04/25 06:31 10/04/25 06:51 10/04/25 06:51 Temperature Pulse Rate 111 H 104 H Respiratory Rate 28 H 29 H Blood Pressure 135/63 135/63 Pulse Oximetry 95 96 96 Oxygen Delivery Nasal Cannula Oxygen Flow Rate 2 Fraction of Inspired Oxygen 10/04/25 07:34 10/04/25 07:47 10/04/25 07:53 Temperature Pulse Rate 105 H 103 H 103 H Respiratory Rate 27 H 26 H 24 H Blood Pressure 103/56 L 62/36 L 75/58 L Pulse Oximetry 93 97 98 Oxygen Delivery Oxygen Flow Rate Fraction of Inspired Oxygen 10/04/25 07:55 10/04/25 08:27 10/04/25 08:31 Temperature Pulse Rate 101 H 98 98 Respiratory Rate 30 H 25 H 22 H Blood Pressure 97/54 L 80/44 L 67/49 L Pulse Oximetry 97 100 100 Oxygen Delivery Oxygen Flow Rate Fraction of Inspired Oxygen 10/04/25 08:42 10/04/25 08:46 10/04/25 08:56 Temperature 96.9 F L Pulse Rate 97 99 102 H Respiratory Rate 13 25 H Blood Pressure 67/49 L 72/47 L 92/63 L Pulse Oximetry 94 94 Oxygen Delivery Oxygen Flow Rate Fraction of Inspired Oxygen 10/04/25 09:01 10/04/25 09:03 10/04/25 09:06 Temperature 98.9 F 99.8 F H Pulse Rate 106 H 105 H 106 H Respiratory Rate 22 H 22 H Blood Pressure 69/56 L 69/56 L 96/63 L Pulse Oximetry 93 93 Oxygen Delivery Oxygen Flow Rate Fraction of Inspired Oxygen 10/04/25 09:07 10/04/25 09:11 10/04/25 09:13 Temperature 100.3 F H 100.5 F H Pulse Rate 106 H 106 H 115 H Respiratory Rate 22 H 13 Blood Pressure 96/63 L 107/62 110/59 L Pulse Oximetry 100 100 Oxygen Delivery Oxygen Flow Rate Fraction of Inspired Oxygen 10/04/25 09:16 10/04/25 09:19 10/04/25 09:20 Temperature 100.7 F H Pulse Rate 117 H 115 H 115 H Respiratory Rate 12 12 12 Blood Pressure 107/52 L Pulse Oximetry 99 Oxygen Delivery Oxygen Flow Rate Fraction of Inspired Oxygen 10/04/25 09:20 10/04/25 09:21 10/04/25 09:22 Temperature 100.8 F H 100.8 F H Pulse Rate 120 H 112 H Respiratory Rate 10 L Blood Pressure 83/47 L Pulse Oximetry 94 99 Oxygen Delivery Mechanical Ventilation Oxygen Flow Rate Fraction of Inspired Oxygen 100 10/04/25 09:26 10/04/25 09:28 10/04/25 09:29 Temperature 100.8 F H Pulse Rate 108 H 107 H 106 H Respiratory Rate 14 16 Blood Pressure 85/51 L 85/51 L Pulse Oximetry 99 Oxygen Delivery Oxygen Flow Rate Fraction of Inspired Oxygen 10/04/25 09:30 10/04/25 09:31 10/04/25 09:31 Temperature 100.9 F H Pulse Rate 106 H 107 H 106 H Respiratory Rate 16 24 H Blood Pressure 80/48 L 80/48 L Pulse Oximetry 99 Oxygen Delivery Oxygen Flow Rate Fraction of Inspired Oxygen 10/04/25 09:33 10/04/25 09:36 10/04/25 09:40 Temperature 100.9 F H 100.9 F H Pulse Rate 107 H 120 H 120 H Respiratory Rate 16 16 16 Blood Pressure 85/46 L 87/53 L Pulse Oximetry 98 96 Oxygen Delivery Oxygen Flow Rate Fraction of Inspired Oxygen 10/04/25 09:41 10/04/25 09:42 10/04/25 09:45 Temperature 100.9 F H 100.9 F H 100.9 F H Pulse Rate 120 H 119 H 119 H Respiratory Rate 16 16 16 Blood Pressure 92/50 L Pulse Oximetry 95 95 94 Oxygen Delivery Oxygen Flow Rate Fraction of Inspired Oxygen 10/04/25 09:46 10/04/25 09:50 10/04/25 09:51 Temperature 100.9 F H 100.9 F H Pulse Rate 120 H 120 H 120 H Respiratory Rate 16 16 16 Blood Pressure 94/49 L 96/54 L Pulse Oximetry 94 94 Oxygen Delivery Oxygen Flow Rate Fraction of Inspired Oxygen 10/04/25 09:56 10/04/25 09:57 10/04/25 09:58 Temperature 100.9 F H Pulse Rate 120 H 120 H Respiratory Rate 15 16 Blood Pressure 97/51 L Pulse Oximetry 93 91 Oxygen Delivery Mechanical Ventilation Oxygen Flow Rate Fraction of Inspired Oxygen 60 10/04/25 10:00 10/04/25 10:00 10/04/25 10:01 Temperature 100.9 F H 100.9 F H Pulse Rate 124 H 123 H 124 H Respiratory Rate 16 16 16 Blood Pressure 115/61 Pulse Oximetry 88 L 88 L Oxygen Delivery Oxygen Flow Rate Fraction of Inspired Oxygen 10/04/25 10:06 10/04/25 10:09 10/04/25 10:11 Temperature 100.8 F H 100.8 F H Pulse Rate 125 H 125 H 124 H Respiratory Rate 16 16 Blood Pressure 117/62 112/57 L Pulse Oximetry 88 L 90 91 Oxygen Delivery Mechanical Ventilation Oxygen Flow Rate Fraction of Inspired Oxygen 85 10/04/25 10:16 10/04/25 10:21 10/04/25 10:26 Temperature 100.7 F H 100.7 F H 100.6 F H Pulse Rate 123 H 123 H 122 H Respiratory Rate 16 16 16 Blood Pressure 106/60 106/54 L 103/52 L Pulse Oximetry 92 92 92 Oxygen Delivery Oxygen Flow Rate Fraction of Inspired Oxygen 10/04/25 10:31 10/04/25 10:36 10/04/25 10:41 Temperature 100.6 F H 100.6 F H 100.5 F H Pulse Rate 122 H 122 H 122 H Respiratory Rate 16 16 16 Blood Pressure 106/55 L 103/54 L 103/53 L Pulse Oximetry 92 92 92 Oxygen Delivery Oxygen Flow Rate Fraction of Inspired Oxygen 10/04/25 10:46 10/04/25 10:51 10/04/25 10:56 Temperature 100.5 F H 100.4 F H 100.3 F H Pulse Rate 121 H 121 H 121 H Respiratory Rate 16 18 16 Blood Pressure 99/54 L 100/49 L 101/54 L Pulse Oximetry 92 92 92 Oxygen Delivery Oxygen Flow Rate Fraction of Inspired Oxygen 10/04/25 11:01 10/04/25 11:09 10/04/25 11:44 Temperature 100.3 F H Pulse Rate 121 H Respiratory Rate 16 Blood Pressure 95/52 L 82/35 L Pulse Oximetry 92 Oxygen Delivery Oxygen Flow Rate Fraction of Inspired Oxygen 85 10/04/25 11:44 10/04/25 11:46 10/04/25 11:48 Temperature Pulse Rate 117 H 118 H 118 H Respiratory Rate Blood Pressure 82/35 L 84/37 L Pulse Oximetry 94 Oxygen Delivery Mechanical Ventilation Oxygen Flow Rate Fraction of Inspired Oxygen 90 10/04/25 11:58 10/04/25 11:59 10/04/25 11:59 Temperature Pulse Rate 120 H 120 H Respiratory Rate 22 H 22 H Blood Pressure 94/43 L Pulse Oximetry Oxygen Delivery Oxygen Flow Rate Fraction of Inspired Oxygen 10/04/25 12:00 10/04/25 12:00 10/04/25 12:13 Temperature 99.7 F H Pulse Rate 120 H 119 H Respiratory Rate 22 H Blood Pressure 96/46 L Pulse Oximetry 98 Oxygen Delivery Mechanical Ventilation Oxygen Flow Rate Fraction of Inspired Oxygen 100 10/04/25 12:32 10/04/25 12:45 10/04/25 14:00 Temperature Pulse Rate 122 H 120 H 103 H Respiratory Rate Blood Pressure 111/48 L 78/46 L Pulse Oximetry Oxygen Delivery Oxygen Flow Rate Fraction of Inspired Oxygen Exam Narrative: General: Intubated, sedated, in no acute distress HEENT:? Pupils equal and reactive, sclera is icteric, ETT in place OGT with blood. Neck:? Thick neck, right IJ central line in place Respiratory:? Coarse breath sounds bilaterally, decreased at bases, no wheezing Cardiac:? S1-S2 is normal, sinus tachycardia Abdomen:? Soft, nontender, nondistended, obese, hypoactive bowel sounds Extremities:? Bilateral lower extremity pitting edema Neuro:? Patient is intubated, sedated, does not open his eyes, follows simple commands a withdraws to pain Skin:? Chronic venous stasis changes and chronic skin discoloration which is likely due to diabetes according the . Patient also has a callus on the ball of the right toe Psych:? Unable to assess at this time Results Labs 10/04/25 05:30 10/04/25 05:30 Labs: Short CBC 10/04/25 Range/Units 05:30 WBC 16.1 H (4.5-10.0) K/mm3 Hgb 10.7 L (14.0-18.0) g/dL Hct 34.5 L (42.0-52.0) % Plt Count 92 L D (150-375) k/mm3 BMP 10/04/25 05:30 Sodium 140 Potassium 4.5 Chloride 114 H Carbon Dioxide 16 L BUN 27 H D Creatinine 1.83 H Glucose 117 H Calcium 8.8 Cardiac Enzymes 10/04/25 10/04/25 10/04/25 Range/Units 05:30 05:30 12:42 Total Creatine Kinase 103 Cancelled 1210 H (55-170) U/L Troponin I 4.720 H* (0.000-0.034) ng/mL Liver Function 10/04/25 Range/Units 05:30 Total Bilirubin 3.1 H (0.2-1.3) mg/dL AST 52 (17-59) U/L ALT 26 (6-50) U/L Alkaline Phosphatase 184 H (38-126) U/L Albumin 3.4 L (3.5-5.1) g/dL Urine 10/04/25 Range/Units 05:30 Urine Color Yellow (Yellow) Urine Appearance Cloudy H (Clear) Urine pH 5.0 (5.0-9.0) Ur Specific [place] 1.012 (1.001-1.035) Urine Protein 3+ H (Negative) mg/dL Urine Glucose (UA) Negative (Negative) mg/dL
[2025-10-04 14:19] LABS: Alveolar/Arterial O2 Gradient 459.9 mmHg; Fractional Inspired Oxygen 100 %; HCO3 ABG 23.2 mEq/l (22.0-26.0); Oxygen Content ABG 14.4 %vol (16.0-22.0); Oxygen Saturation ABG 99.3 % (95.0-100.0); PCO2 ABG 44.7 mmHg (35.0-45.0); PO2 ABG 208.4 mmHg (80.0-100.0); PO2 FiO2 Ratio Arterial Blood 2.08 %
[2025-10-04 14:21] LABS: Modified Allen's Test Pass; Site Drawn LEFT RADIAL
[2025-10-04 14:22] LABS: Arterial Blood Gas Tidal Volume 500 ml; Arterial Blood Gas Ventilator rate 22 /MIN; Liters per Minute 0.0 LPM
[2025-10-04 14:23] LABS: Arterial Blood Gas Pressure Support 0 cmH2O
[2025-10-04 14:29] LABS: Hematocrit 28.4 % (42.0-52.0); Hemoglobin 9.0 g/dL (14.0-18.0)
[2025-10-04 14:53] LABS: Hemoglobin A1C 5.9 % (<5.7)
[2025-10-04 15:26] LABS: Thyroid Stimulating Hormone Reflex 3.360 uIU/mL (0.465-4.68)
[2025-10-04] MEDS: IPRATROPIUM BR 0.02% INH SOLN 0.5 MG/2.5 ML VIAL INHALATION ×2 (15:26→20:13)
[2025-10-04 15:28] LABS: Hepatitis B Surface Antigen Negative (Negative)
[2025-10-04 15:45] LABS: Hepatitis B Surface Anti Res Negative
[2025-10-04] MEDS: NOREPINEPHRINE 8 MG/D5W 250 ML 8 MG/250 ML BAG 28.13 MG IV CONT (17:03)
[2025-10-04 17:25] LABS: Troponin I 8.720 ng/mL (0.000-0.034)
--- NOTE | 2025-10-04 17:50 | PC.NURSE ---
Updated Dr mcknight on elevated troponin of 8.72, received order for bicarb drip for 1.5L and to place cardiac consult. Notified Dr Duran myself and updated him on the patient. Patient PLT 92, with blood tinged output from OG and urine in [place] cath darkening, possible blood. Notified Dr Mcknight that Renee would suggest starting aspirin. Received order for Aspirin 81mg via OG to start now and continue daily. Order read back and verified
[2025-10-04] MEDS: ASPIRIN 81 MG CHEWABLE TABLET PO (18:22)
[2025-10-04] MEDS: SODIUM BICARBONATE 8.4% 150 MEQ in WATER, STERILE FOR INJECTION 950 ML 100 MEQ IV CONT (18:30)
[2025-10-04 19:17] LABS: Magnesium 1.6 mg/dL (1.6-2.3); Troponin I 13.000 ng/mL (0.000-0.034)
--- NOTE | 2025-10-04 19:27 | PC.NURSE ---
Updated DR Mcknight of troponin of 13. Received order from Dr Mcknight for 2g of Mag IV. PT had 4 beat run of VTach. Left VM with exchange to update Dr Duran.
[2025-10-04] MEDS: MAGNESIUM SULF 2 GM/WATER 50ML 2 GM/50 ML BAG IVPB (19:57)
[2025-10-04] MEDS: FENTANYL 2,500MCG/NS250ML(*CRX 2,500 MCG/250 ML BAG 20 MCG IV CONT (20:00)
[2025-10-04] MEDS: MIDAZOLAM 100MG/NS 100ML(*CRX) 100 MG/100 ML BAG 10 MG IV CONT (20:06)
[2025-10-04 20:24] LABS: Hematocrit 27.0 % (42.0-52.0); Hemoglobin 8.5 g/dL (14.0-18.0)
[2025-10-04] MEDS: HEPARIN SOD/D5W 100 UNITS/ML 25,000 UNITS/250 ML BAG 10 UNITS IV CONT (21:36)
[2025-10-04 22:04] LABS: INR 1.6; Partial Thromboplastin Time 39.1 Seconds (22.3-36.8); Prothrombin Time 19.1 Seconds (11.1-14.7)
[2025-10-04 22:53] LABS: Hematocrit 26.9 % (42.0-52.0); Hemoglobin 8.4 g/dL (14.0-18.0); Immature Granulocyte Percent A 0.7 % (0-0.5); Immature Platelet Fraction Pct 2.0 % (0.9-11.2); Lymphocytes Absolute Auto 0.84 K/mm3 (0.9-3.2); Mean Corpuscular HGB Conc 31.2 g/dl (32-36); Mean Corpuscular Hemoglobin 34.4 pg (26-34); Mean Corpuscular Volume 110.2 fl (80-100); Nucleated Red Blood Cells Absolute Auto 0.000 K/mm3 (0.0-0.012); Nucleated Red Blood Cells Perc 0.0 % (0.0-0.2); Red Blood Count 2.44 M/mm3 (4.6-6.20); White Blood Count 15.2 K/mm3 (4.5-10.0)
[2025-10-04 23:13] LABS: Platelet Count Result 72 k/mm3 (150-375)
[2025-10-05] VITALS (56 sets, daily range): BP systolic 89–137; BP diastolic 37–60; PULSE 73–96; RESP 16–25; TEMP 36.3–38.1; O2SAT 95–100; BMI 46.7
--- NOTE | 2025-10-05 | ECHO_ITS ---
Patient Info Name: Blake Smith Age: 65 years : 1960 Gender: Male Ht: 74 in Wt: 357 lbs BSA: 2.98 m2 HR: 77 bpm BP: 124 / 48 mmHg Technical Quality: Good Exam Date: 10/05/2025 8:59 AM Patient Status: I Admit Date: 10/04/2025 Exam Type: CA echo doppler color flow Complete two-dimensional, color flow and Doppler transthoracic echocardiogram is performed. Staff Referring Physician: Dereck Baez Detective [place]: Cici Bonilla Attending Provider: Odin Mejia MD Summary 1. Complete two-dimensional, color flow and Doppler transthoracic echocardiogram is performed. 2. Left ventricular chamber dimension is moderately enlarged. 3. Left ventricular systolic function is normal, estimated at 55-60. 4. There is moderate concentric increased left ventricular wall thickness. 5. The left ventricular diastolic function is abnormal. 6. E/e' 26 is significantly elevated. 7. Left atrial chamber dimension is mildly enlarged. 8. The aortic valve is not well visualized. Cannot determine number of aortic valve leaflets. 9. There is severe aortic valve sclerosis. 10. There is severe aortic valve stenosis with a peak velocity of 435 cm/s, mean gradient of 43 mmHg, and aortic valve area of 0.9 cm2. 11. There is mild to moderate aortic valve regurgitation. 12. The mitral valve has a moderately calcified annulus. 13. There is mild mitral valve regurgitation. 14. There is mild to moderate tricuspid valve regurgitation. 15. Moderate pulmonary hypertension, estimated pulmonary arterial systolic pressure is 56 mmHg. 16. There is trace pulmonic regurgitation. Left Ventricle E/e' 26 is significantly elevated. Left ventricular chamber dimension is moderately enlarged. Left ventricular systolic function is normal, estimated at 55-60. There is moderate concentric increased left ventricular wall thickness. The left ventricular diastolic function is abnormal. Right Ventricle Right ventricular chamber dimension is normal. Right ventricular systolic function is normal and with normal TAPSE 2.6 cm. Left Atria Left atrial chamber dimension is mildly enlarged. Right Atria Right atrial chamber dimension is normal. Aortic Valve The aortic valve is not well visualized. Cannot determine number of aortic valve leaflets. There is severe aortic valve sclerosis. There is severe aortic valve stenosis with a peak velocity of 435 cm/s, mean gradient of 43 mmHg, and aortic valve area of 0.9 cm2. There is mild to moderate aortic valve regurgitation. Pulmonic Valve There is trace pulmonic regurgitation. Mitral Valve The mitral valve has a moderately calcified annulus. There is no mitral valve stenosis. There is mild mitral valve regurgitation. Tricuspid Valve There is mild to moderate tricuspid valve regurgitation. Moderate pulmonary hypertension, estimated pulmonary arterial systolic pressure is 56 mmHg. Pericardium/Pleural There is no pericardial effusion. Inferior Vena Cava Normal inferior vena cava with >50% collapse upon inspiration consistent with normal right atrial pressure, 5 mmHg. Aorta The aortic root size at the sinus of Valsalva is normal. Left Ventricular Outflow Tract Name Value Normal LVOT 2D LVOT Diameter 2.0 cm LVOT Doppler LVOT Peak Velocity 137 cm/s LVOT Peak Gradient 6 mmHg LVOT Mean Gradient 4 mmHg LVOT VTI 31 cm LVOT VTI/AV VTI Ratio 0.3 LVOT Stroke Volume 104 ml LVOT CO 8.5 l/min LVOT CI 2.8 l/min/m2 Pulmonic Valve Name Value Normal RVOT Doppler RVOT Peak Velocity 133 cm/s RVOT Peak Gradient 7 mmHg PV Doppler PV Peak Velocity 151 cm/s PV Peak Gradient 9 mmHg Mitral Valve Name Value Normal MV Doppler MV Peak Gradient 10 mmHg MV Mean Gradient 6 mmHg MV Area (Cont Eq VTI) 1.8 cm2 MV Diastolic Function MV E Peak Velocity 147 cm/s MV A Peak Velocity 127 cm/s MV E/A 1.2 MV Decel Time (PW) 224 ms MV Annular TDI MV E/e' (Septal) 34.2 MV E/e' (Lateral) 21.3 MV E/e' (Average) 27.8 Tricuspid Valve Name Value Normal TV Regurgitation Doppler TR Peak Velocity 358 cm/s TR Peak Gradient 51 mmHg Estimated PAP/RSVP RA Pressure 5 mmHg <=5 PA Systolic Pressure 56 mmHg <36 RV Systolic Pressure 56 mmHg <36 Aortic Valve Name Value Normal AV Doppler AV Peak Velocity 435 cm/s AV Peak Gradient 57 mmHg AV Mean Gradient 43 mmHg AV VTI 111 cm AV Area (Cont Eq VTI) 0.9 cm2 >=3.0 AV Area (Cont Eq Jaleel) 1.0 cm2 AV DI (Jaleel) 0.32 AV Regurgitation 2D LVOT Area 3.3 cm2 Ventricles Name Value Normal LV Dimensions 2D/MM IVS Diastolic Thickness (2D) 1.4 cm 0.6-1.0 LVID Diastole (2D) 6.1 cm 4.2-5.8 LVIW Diastolic Thickness (2D) 1.2 cm 0.6-1.0 LVID Systole (2D) 4.1 cm 2.5-4.0 LVOT Diameter 2.0 cm LV Mass (2D Cubed) 367.88 g 88.00-224.00 LV Mass Index (2D Cubed) 123 g/m2 49-115 Relative Wall Thickness (2D) 0.40 <=0.42 LV Fractional Shortening/Ejection Fraction 2D/MM LV Fractional Shortening (2D) 32 % 25-43 LV EF (2D Teichholz) 59 % LV Diastolic Volume (4C MOD) 238 ml LV EF (4C MOD) 59 % LV Diastolic Volume (2C MOD) 260 ml LV EF (2C MOD) 57 % LV Diastolic Volume (BP MOD) 260 ml 62-150 LV Diastolic Volume Index (BP MOD) 87 ml/m2 34-74 LV Systolic Volume (BP MOD) 109 ml 21-61 LV Systolic Volume Index (BP MOD) 37 ml/m2 11-31 LV EF (BP MOD) 58 % 52-72 LV Diastolic Length (4C) 9.8 cm LV Systolic Length (4C) 8.3 cm LV Stroke Volume (4C MOD) 140 ml Atria Name Value Normal LA Dimensions LA Volume (4C A-L) 106 ml LA Volume (BP A-L) 112 ml RA Dimensions RA Systolic Major [place] Length (4C) 5.8 cm 2.1-2.7 RA Area (4C) 18.6 cm2 <=18.0 Report Signatures
[2025-10-05] MEDS: ALBUMIN HUMAN 25% 25 GM/100 ML 100 ML IVPB ×4 (00:05→17:49)
[2025-10-05] MEDS: metroNIDAZOLE 500 MG/ISO 100ML 500 MG/100 ML BAG 100 MG IVPB ×3 (01:34→17:48)
[2025-10-05] MEDS: IPRATROPIUM BR 0.02% INH SOLN 0.5 MG/2.5 ML VIAL INHALATION ×4 (02:02→20:43)
[2025-10-05 03:46] LABS: Hematocrit 25.0 % (42.0-52.0); Hemoglobin 7.9 g/dL (14.0-18.0); Immature Granulocyte Percent A 0.5 % (0-0.5); Immature Platelet Fraction Pct 1.4 % (0.9-11.2); Lymphocytes Absolute Auto 1.08 K/mm3 (0.9-3.2); Mean Corpuscular HGB Conc 31.6 g/dl (32-36); Mean Corpuscular Hemoglobin 34.5 pg (26-34); Mean Corpuscular Volume 109.2 fl (80-100); Nucleated Red Blood Cells Absolute Auto 0.000 K/mm3 (0.0-0.012); Nucleated Red Blood Cells Perc 0.0 % (0.0-0.2); Red Blood Count 2.29 M/mm3 (4.6-6.20); White Blood Count 10.2 K/mm3 (4.5-10.0)
[2025-10-05 03:56] LABS: INR 1.7; Prothrombin Time 19.4 Seconds (11.1-14.7)
[2025-10-05 03:58] LABS: Alanine Aminotransferase 26 U/L (6-50); Albumin Level 2.9 g/dL (3.5-5.1); Alkaline Phosphatase 107 U/L (38-126); Anion Gap 3 mmol/L (4-12); Aspartate Amino Transferase 122 U/L (17-59); Bilirubin,Total 3.5 mg/dL (0.2-1.3); Blood Urea Nitrogen 38 mg/dL (9-20); Calcium 8.0 mg/dL (8.4-10.2); Carbon Dioxide 24 mmol/L (22-30); Chloride 111 mmol/L (98-107); Creatine Kinase 1007 U/L (55-170); Estimated CRCL calculation 39 ml/min; Estimated Glomerular Filt Rate 22; Glucose 138 mg/dL (65-110); Magnesium 1.9 mg/dL (1.6-2.3); Partial Thromboplastin Time 72.4 Seconds (22.3-36.8); Potassium 5.0 mmol/L (3.4-5.0); Sodium 138 mmol/L (137-145); Total Protein 7.3 g/dL (6.3-8.2)
[2025-10-05 04:04] LABS: Platelet Count Result 63 k/mm3 (150-375)
[2025-10-05] MEDS: SODIUM BICARBONATE 8.4% 150 MEQ in WATER, STERILE FOR INJECTION 950 ML 100 MEQ IV CONT (05:42)
[2025-10-05 05:52] LABS: Alveolar/Arterial O2 Gradient 147.6 mmHg; Carboxyhemoglobin 0.8 % THb (0-2.0); Fractional Inspired Oxygen 50 %; HCO3 ABG 24.3 mEq/l (22.0-26.0); Methemoglobin ABG 0.3 %THb (0-1.5); Oxygen Content ABG 13.1 %vol (16.0-22.0); Oxygen Saturation ABG 99.1 % (95.0-100.0); PCO2 ABG 39.4 mmHg (35.0-45.0); PO2 ABG 164.6 mmHg (80.0-100.0); PO2 FiO2 Ratio Arterial Blood 3.29 %; Reduced Hemoglobin 0.7 %THb (0-5.0)
[2025-10-05 05:53] LABS: Site Drawn RIGHT RADIAL
[2025-10-05 05:54] LABS: Arterial Blood Gas Ventilator rate 22 /MIN; Modified Allen's Test Pass
[2025-10-05 05:55] LABS: Arterial Blood Gas Tidal Volume 500 ml
[2025-10-05] MEDS: NOREPINEPHRINE 8 MG/D5W 250 ML 8 MG/250 ML BAG 7.5 MG IV CONT (07:06)
[2025-10-05] MEDS: MIDAZOLAM 100MG/NS 100ML(*CRX) 100 MG/100 ML BAG 8 MG IV CONT (07:08)
[2025-10-05] MEDS: CENTRAL LINE FLUSH 10 ML IV PUSH ×3 (07:12→21:33)
[2025-10-05] MEDS: FENTANYL 2,500MCG/NS250ML(*CRX 2,500 MCG/250 ML BAG 12.5 MCG IV CONT (08:26)
[2025-10-05] MEDS: ASPIRIN 81 MG CHEWABLE TABLET PO (09:41)
[2025-10-05] MEDS: PANTOPRAZOLE SODIUM IV 40 MG VIAL IV PUSH ×2 (09:42→20:11)
[2025-10-05] MEDS: CEFEPIME 2 GM in SODIUM CHLORIDE 0.9% IV 50 ML 100 ML IVPB ×2 (09:42→20:14)
[2025-10-05] MEDS: THIAMINE HCL 200 MG/2 ML VIAL 100 MG IV PUSH (09:59)
[2025-10-05] MEDS: LACTATED RINGERS 1,000 ML 1000 ML IV CONT (09:59)
[2025-10-05 10:44] LABS: Hematocrit 24.6 % (42.0-52.0); Hemoglobin 7.8 g/dL (14.0-18.0); Immature Platelet Fraction Pct 1.7 % (0.9-11.2); Mean Corpuscular HGB Conc 31.7 g/dl (32-36); Mean Corpuscular Hemoglobin 34.7 pg (26-34); Mean Corpuscular Volume 109.3 fl (80-100); Platelet Count Result 60 k/mm3 (150-375); Red Blood Count 2.25 M/mm3 (4.6-6.20); White Blood Count 8.7 K/mm3 (4.5-10.0)
[2025-10-05 10:56] LABS: Partial Thromboplastin Time 84.3 Seconds (22.3-36.8)
[2025-10-05] MEDS: AZITHROMYCIN 250 MG/NS 250 ML 250 MG/250 ML BAG IVPB (11:02)
[2025-10-05] MEDS: VANCOMYCIN 2,000 MG/NS 500 ML 2,000 MG/500 ML BAG 250 MG IVPB (11:02)
--- NOTE | 2025-10-05 11:05 | P.PNGI_ITS ---
Progress Note: A&P Assessment and Plan (1) Cirrhosis: Code(s): K74.60 - Unspecified cirrhosis of liver Status: Acute Assessment and Plan: The patient was admitted yesterday for an acute exacerbation of CHF + pneumonia complicated by a background of alcohol and cocaine abuse and underlying liver cirrhosis, evidenced by CT findings of a nodular liver, splenomegaly, and ascites with a severely compromised liver function (MELD 3.0 of 26). The systemic condition is currently critical, involving pneumonia, renal failure, respiratory failure, and circulatory failure requiring two vasopressors, leading to a diagnosis of Acute on Chronic Liver Failure (ACLF-3) with an estimated three-month survival of 85%. Additional significant comorbidities include moderate to severe aortic stenosis and pulmonary hypertension. Given the severe aortic stenosis, pulmonary hypertension and current cocaine use, the patient is deemed not a candidate for liver transplantation; this, along with the strict contraindication of all alcohol and illicit substances, was discussed this morning with his . Regarding the apparent coffee-ground material noted yesterday from the orogastric tube, this is not considered an acute issue warranting emergent endoscopy at this time, and the GI team should be contacted if there is a change in status requiring emergent EGD. The patient should continue to be followed conservatively in the GI clinic as an outpatient, and immediate substance detox treatment is strongly encouraged post-discharge. Lastly, once the patient is medically stable, the possibility of aortic valve repair should be entertained with Cardiology, taking into consideration all the risks and benefits in this particular clinical scenario. (2) Drug abuse: Code(s): F19.10 - Other psychoactive substance abuse, uncomplicated Status: Acute (3) Alcohol abuse: Code(s): F10.10 - Alcohol abuse, uncomplicated Status: Acute Subjective Date/time seen: 10/05/25 11:05 Interval history: Patient intubated and sedated, unable to obtain history. Exam Narrative: Morbidly obese, intubated, with orogastric tube with no blood or coffee-ground contents seen. Labs today: WBC 10.2, hemoglobin 7.9, platelet count 63, INR 1.7, sodium 138, creatinine 2.87, AST 122, ALT 26, bilirubin 3.5, albumin 2.9. MELD 3.0 score = 26 Objective Data Vital Signs Vital Signs: Vital Signs - 24 hr 10/04/25 11:09 10/04/25 11:44 10/04/25 11:44 Temperature Pulse Rate 117 H Respiratory Rate Blood Pressure 82/35 L 82/35 L Pulse Oximetry Oxygen Delivery Fraction of Inspired Oxygen 85 10/04/25 11:46 10/04/25 11:48 10/04/25 11:56 Temperature Pulse Rate 118 H 118 H Respiratory Rate Blood Pressure 84/37 L Pulse Oximetry 94 Oxygen Delivery Mechanical Ventilation Mechanical Ventilation Fraction of Inspired Oxygen 90 10/04/25 11:58 10/04/25 11:59 10/04/25 11:59 Temperature Pulse Rate 120 H 120 H Respiratory Rate 22 H 22 H Blood Pressure 94/43 L Pulse Oximetry Oxygen Delivery Fraction of Inspired Oxygen 10/04/25 12:00 10/04/25 12:00 10/04/25 12:00 Temperature Pulse Rate 120 H 120 H Respiratory Rate Blood Pressure 96/46 L Pulse Oximetry Oxygen Delivery Mechanical Ventilation Fraction of Inspired Oxygen 100 10/04/25 12:13 10/04/25 12:15 10/04/25 12:30 Temperature 99.7 F H Pulse Rate 119 H 119 H 126 H Respiratory Rate 22 H Blood Pressure 96/46 L 90/49 L 111/48 L Pulse Oximetry 98 Oxygen Delivery Fraction of Inspired Oxygen 10/04/25 12:32 10/04/25 12:45 10/04/25 13:00 Temperature 99.5 F Pulse Rate 122 H 120 H 120 H Respiratory Rate 22 H Blood Pressure 111/48 L 78/46 L 76/40 L Pulse Oximetry 99 Oxygen Delivery Fraction of Inspired Oxygen 10/04/25 13:30 10/04/25 14:00 10/04/25 14:00 Temperature Pulse Rate 121 H 103 H 102 H Respiratory Rate 22 H Blood Pressure 116/65 96/53 L Pulse Oximetry 99 Oxygen Delivery Fraction of Inspired Oxygen 10/04/25 14:00 10/04/25 14:00 10/04/25 14:00 Temperature Pulse Rate 102 H 102 H 102 H Respiratory Rate 22 H Blood Pressure 96/53 L 96/53 L Pulse Oximetry Oxygen Delivery Fraction of Inspired Oxygen 10/04/25 14:00 10/04/25 14:28 10/04/25 15:00 Temperature 99.5 F Pulse Rate 102 H 105 H Respiratory Rate 22 H 22 H Blood Pressure 108/62 Pulse Oximetry 96 Oxygen Delivery Fraction of Inspired Oxygen 60 10/04/25 15:28 10/04/25 15:34 10/04/25 15:44 Temperature Pulse Rate 104 H 102 H 102 H Respiratory Rate 22 H 22 H Blood Pressure Pulse Oximetry 97 Oxygen Delivery Mechanical Ventilation Fraction of Inspired Oxygen 60 10/04/25 16:00 10/04/25 16:00 10/04/25 16:00 Temperature Pulse Rate 97 97 97 Respiratory Rate 22 H Blood Pressure 96/54 L 96/54 L Pulse Oximetry Oxygen Delivery Fraction of Inspired Oxygen 10/04/25 16:00 10/04/25 16:00 10/04/25 16:00 Temperature 99.7 F H Pulse Rate 97 96 Respiratory Rate 22 H 22 H Blood Pressure 97/54 L Pulse Oximetry 98 98 Oxygen Delivery Mechanical Ventilation Fraction of Inspired Oxygen 60 10/04/25 16:00 10/04/25 16:09 10/04/25 17:00 Temperature 99.7 F H Pulse Rate 98 94 96 Respiratory Rate 22 H Blood Pressure 116/60 Pulse Oximetry 97 Oxygen Delivery Fraction of Inspired Oxygen 10/04/25 17:03 10/04/25 17:41 10/04/25 18:00 Temperature Pulse Rate 94 97 96 Respiratory Rate Blood Pressure 96/53 L Pulse Oximetry 96 Oxygen Delivery Mechanical Ventilation Fraction of Inspired Oxygen 50 10/04/25 18:00 10/04/25 18:00 10/04/25 18:00 Temperature 99.7 F H Pulse Rate 95 95 96 Respiratory Rate 22 H Blood Pressure 118/50 L 118/50 L 118/50 L Pulse Oximetry 96 Oxygen Delivery Fraction of Inspired Oxygen 10/04/25 18:00 10/04/25 19:00 10/04/25 19:26 Temperature 99.7 F H Pulse Rate 96 95 Respiratory Rate 22 H 22 H Blood Pressure 117/50 L Pulse Oximetry 96 Oxygen Delivery Fraction of Inspired Oxygen 50 10/04/25 20:00 10/04/25 20:00 10/04/25 20:00 Temperature Pulse Rate 93 93 93 Respiratory Rate 22 H Blood Pressure 127/51 L 127/51 L Pulse Oximetry Oxygen Delivery Fraction of Inspired Oxygen 10/04/25 20:00 10/04/25 20:00 10/04/25 20:00 Temperature 99.9 F H Pulse Rate 93 92 92 Respiratory Rate 22 H 22 H Blood Pressure 127/51 L Pulse Oximetry 96 Oxygen Delivery Fraction of Inspired Oxygen 10/04/25 20:00 10/04/25 20:06 10/04/25 20:13 Temperature Pulse Rate 92 90 Respiratory Rate 22 H 22 H 22 H Blood Pressure Pulse Oximetry 96 Oxygen Delivery Mechanical Ventilation Fraction of Inspired Oxygen 10/04/25 20:16 10/04/25 20:27 10/04/25 20:27 Temperature Pulse Rate 91 94 97 Respiratory Rate 22 H 22 H Blood Pressure Pulse Oximetry 96 94 Oxygen Delivery Mechanical Ventilation Mechanical Ventilation Fraction of Inspired Oxygen 50 50 10/04/25 21:00 10/04/25 22:00 10/04/25 22:00 Temperature 100.0 F H Pulse Rate 97 89 89 Respiratory Rate 22 H Blood Pressure 122/53 L 116/51 L Pulse Oximetry 96 Oxygen Delivery Fraction of Inspired Oxygen 10/04/25 22:00 10/04/25 22:00 10/04/25 22:00 Temperature 100.1 F H Pulse Rate 89 89 89 Respiratory Rate 22 H 22 H Blood Pressure 116/51 L 116/51 L Pulse Oximetry 96 Oxygen Delivery Fraction of Inspired Oxygen 10/04/25 22:00 10/04/25 22:05 10/04/25 22:30 Temperature Pulse Rate 89 96 89 Respiratory Rate 22 H Blood Pressure 124/53 L Pulse Oximetry 96 Oxygen Delivery Mechanical Ventilation Fraction of Inspired Oxygen 50 10/04/25 23:00 10/04/25 23:26 10/05/25 00:00 Temperature 100.0 F H Pulse Rate 89 86 Respiratory Rate 22 H 22 H Blood Pressure 120/47 L Pulse Oximetry 96 Oxygen Delivery Fraction of Inspired Oxygen 50 10/05/25 00:00 10/05/25 00:00 10/05/25 00:00 Temperature Pulse Rate 86 86 86 Respiratory Rate 22 H Blood Pressure 120/51 L 120/51 L Pulse Oximetry Oxygen Delivery Fraction of Inspired Oxygen 10/05/25 00:00 10/05/25 00:00 10/05/25 00:00 Temperature 100.0 F H Pulse Rate 86 86 Respiratory Rate 22 H 22 H Blood Pressure 120/51 L Pulse Oximetry 97 97 Oxygen Delivery Mechanical Ventilation Fraction of Inspired Oxygen 10/05/25 01:00 10/05/25 02:00 10/05/25 02:00 Temperature 99.9 F H Pulse Rate 85 86 86 Respiratory Rate 22 H 22 H Blood Pressure 118/60 124/53 L Pulse Oximetry 97 Oxygen Delivery Fraction of Inspired Oxygen 10/05/25 02:00 10/05/25 02:00 10/05/25 02:00 Temperature 99.8 F H Pulse Rate 86 86 86 Respiratory Rate 22 H 22 H Blood Pressure 124/53 L 124/53 L Pulse Oximetry 97 Oxygen Delivery Fraction of Inspired Oxygen 10/05/25 02:00 10/05/25 02:03 10/05/25 02:07 Temperature Pulse Rate 86 86 86 Respiratory Rate 22 H Blood Pressure Pulse Oximetry 97 Oxygen Delivery Mechanical Ventilation Fraction of Inspired Oxygen 50 10/05/25 02:12 10/05/25 03:00 10/05/25 03:00 Temperature 99.6 F Pulse Rate 85 84 Respiratory Rate 22 H 22 H Blood Pressure 116/50 L Pulse Oximetry 97 Oxygen Delivery Fraction of Inspired Oxygen 50 10/05/25 04:00 10/05/25 04:00 10/05/25 04:00 Temperature 99.4 F Pulse Rate 84 84 84 Respiratory Rate 22 H 22 H Blood Pressure 119/52 L 119/52 L Pulse Oximetry 97 Oxygen Delivery Fraction of Inspired Oxygen 10/05/25 04:00 10/05/25 04:00 10/05/25 04:00 Temperature Pulse Rate 84 84 Respiratory Rate 22 H 22 H Blood Pressure 119/52 L Pulse Oximetry 97 Oxygen Delivery Mechanical Ventilation Fraction of Inspired Oxygen 10/05/25 04:00 10/05/25 04:15 10/05/25 05:00 Temperature 99.3 F Pulse Rate 84 84 82 Respiratory Rate 16 Blood Pressure 122/50 L 115/53 L Pulse Oximetry 98 Oxygen Delivery Fraction of Inspired Oxygen 10/05/25 05:40 10/05/25 05:59 10/05/25 06:00 Temperature Pulse Rate 84 83 80 Respiratory Rate 22 H Blood Pressure 127/58 L Pulse Oximetry 100 Oxygen Delivery Mechanical Ventilation Fraction of Inspired Oxygen 10/05/25 06:00 10/05/25 06:00 10/05/25 06:00 Temperature Pulse Rate 80 80 80 Respiratory Rate 22 H Blood Pressure 112/45 L 112/45 L Pulse Oximetry Oxygen Delivery Fraction of Inspired Oxygen 10/05/25 06:00 10/05/25 06:00 10/05/25 06:08 Temperature 99.0 F Pulse Rate 80 80 80 Respiratory Rate 22 H 22 H Blood Pressure 112/45 L Pulse Oximetry 100 Oxygen Delivery Fraction of Inspired Oxygen 10/05/25 07:00 10/05/25 07:00 10/05/25 07:06 Temperature 98.8 F Pulse Rate 81 80 Respiratory Rate 22 H Blood Pressure 126/53 L 124/48 L Pulse Oximetry 100 Oxygen Delivery Fraction of Inspired Oxygen 50 10/05/25 07:08 10/05/25 07:15 10/05/25 07:31 Temperature Pulse Rate 80 80 80 Respiratory Rate 22 H 22 H 22 H Blood Pressure Pulse Oximetry Oxygen Delivery Fraction of Inspired Oxygen 10/05/25 07:32 10/05/25 08:00 10/05/25 08:00 Temperature 98.7 F Pulse Rate 80 79 Respiratory Rate 22 H 22 H 22 H Blood Pressure 122/55 L Pulse Oximetry 100 98 Oxygen Delivery Mechanical Ventilation Fraction of Inspired Oxygen 50 10/05/25 08:00 10/05/25 08:26 10/05/25 08:26 Temperature Pulse Rate 80 81 81 Respiratory Rate 22 H 22 H Blood Pressure Pulse Oximetry Oxygen Delivery Fraction of Inspired Oxygen 10/05/25 08:50 10/05/25 09:00 10/05/25 10:00 Temperature 98.4 F 98.3 F Pulse Rate 81 81 80 Respiratory Rate 23 H 22 H Blood Pressure 122/57 L 126/54 L 121/49 L Pulse Oximetry 98 98 Oxygen Delivery Fraction of Inspired Oxygen 10/05/25 10:00 Temperature Pulse Rate 77 Respiratory Rate Blood Pressure Pulse Oximetry Oxygen Delivery Fraction of Inspired Oxygen Intake/Output Intake/Output: Intake & Output 10/02/25 10/03/25 10/04/25 10/05/25 23:59 23:59 23:59 23:59 Intake Total 3558.4 1781.9 Output Total 250 425 Balance 3308.4 1356.9 Meds/Results Medications: Active Medications Generic Name Dose Route Start Last Admin Trade Name Freq PRN Reason Stop Dose Admin Aspirin 81 mg 10/04/25 17:50 10/05/25 09:41 Aspirin 81 Mg Chewable Tablet PO 81 mg DAILY@0800 VIKA Administration Dextrose 12.5 gm 10/04/25 13:16 Dextrose 50% 25 Gm/50 Ml Syringe IV PUSH PRN PRN Hypoglycemia Protocol Glucagon 1 mg 10/04/25 13:16 Glucagon For Inj 1 Mg Vial IM PRN PRN Hypoglycemia Protocol Glucose 15 gm 10/04/25 13:16 Glucose Oral Gel 15 Gm Of Glucse In 37.5 Gm Tube PO PRN PRN Hypoglycemia Protocol Heparin Sodium (Porcine) 4,000 units 10/04/25 20:52 Heparin Sodium 5,000 Units/Ml Vial IV PUSH PRN PRN aPTT less than 55 seconds Heparin Sodium (Porcine) 4,000 units 10/04/25 20:52 Heparin Sodium 5,000 Units/Ml Vial IV PUSH PRN PRN aPTT 55 - 70 seconds Norepinephrine Bitartrate 8 mg in 250 mls @ 7.5 mls/hr 10/04/25 08:30 10/05/25 08:50 Levophed 8 Mg/D5w 250 Ml IV CONT Not Given .Q24H VIKA Protocol 4 MCG/MIN Metronidazole 500 mg in 100 mls @ 100 mls/hr 10/04/25 17:00 10/05/25 09:42 Flagyl 500 Mg/Iso Soln 100 Ml IVPB 100 mls/hr Q8H VIKA Administration Albumin Human 100 mls @ 60 mls/hr 10/04/25 12:00 10/05/25 06:16 Albutein IVPB 60 mls/hr Q6HR VIKA Administration Vasopressin 100 units/ 100 mls @ 2.4 mls/hr 10/04/25 12:00 10/05/25 06:00 Dextrose IV CONT 0.04 units/min .[id number] VIKA 2.4 mls/hr Protocol Titration 0.04 UNITS/MIN Cefepime HCl 2 gm/ Sodium 50 mls @ 100 mls/hr 10/04/25 12:25 10/05/25 09:42 Chloride IVPB 100 mls/hr Q12HR VIKA Administration Azithromycin 250 mg in 250 mls @ 250 mls/hr 10/05/25 09:00 10/05/25 11:02 Zithromax IVPB 250 mls/hr Q24H VIKA Administration Dextrose 1,000 mls @ 100 mls/hr 10/04/25 13:16 Dextrose 5% 1,000 Ml IVPB PRN PRN Hypoglycemia Protocol Fentanyl Citrate 2,500 mcg in 250 mls @ 12.5 mls/hr 10/04/25 19:45 10/05/25 08:26 Fentanyl 2,500 Mcg/Ns 250 Ml IV CONT 125 mcg/hr .Q20H VIKA 12.5 mls/hr Protocol Administration 125 MCG/HR Midazolam HCl 100 mg in 100 mls @ 7 mls/hr 10/04/25 19:45 10/05/25 07:32 Versed 100 Mg/Ns 100 Ml IV CONT 7 mg/hr .[id number] VIKA 7 mls/hr Protocol Titration 7 MG/HR Heparin Sodium/Dextrose 25,000 units in 250 mls @ 10 mls/hr 10/04/25 21:10 10/05/25 04:30 Heparin Sodium/D5w 100 Units/Ml IV CONT 1,000 units/hr .Q24H VIKA 10 mls/hr Protocol Titration 1,000 UNITS/HR Vancomycin HCl 2,000 mg in 500 mls @ 250 mls/hr 10/05/25 10:00 10/05/25 11:02 Vancomycin 2,000 Mg/Ns 500 Ml IVPB 10/05/25 11:59 250 mls/hr ONCE ONE Administration Insulin Aspart 3 - 6 units 10/04/25 18:00 10/05/25 08:50 Insulin Aspart (*Bkc) 100 Units/Ml SUB-Q Not Given Q6HR VIKA Protocol Ipratropium [place] 0.5 mg 10/04/25 14:00 10/05/25 07:46 Ipratropium Br 0.02% Inh Soln 0.5 Mg/2.5 Ml Vial INHALATION 0.5 mg Q6HRT VIKA Administration Levalbuterol HCl 0.63 mg 10/04/25 14:00 10/05/25 07:46 Levalbuterol Neb 1.25 Mg/3 Ml INHALATION 0.63 mg Q6HRT VIKA Administration Pantoprazole Sodium 40 mg 10/04/25 21:00 10/05/25 09:42 Pantoprazole Sodium Iv 40 Mg Vial IV PUSH 40 mg Q12HR VIKA Administration Perflutren Lipid Microsphere 0 ml 10/04/25 12:41 Perflutren Lipid Microspheres 1.5 Ml Vial Diluted To 10 Ml Total Volume IV PUSH 10/07/25 12:42 ONCE PRN adequate visualization Protocol Sodium Chloride 10 ml 10/04/25 14:00 10/05/25 07:12 Central Line Flush IV PUSH 10 ml Q8HR VIKA Administration Sodium Chloride 20 ml 10/04/25 09:27 Central Line Flush IV PUSH PRN PRN after blood draws Thiamine HCl 100 mg 10/05/25 09:00 10/05/25 09:59 Thiamine Hcl 200 Mg/2 Ml Vial IV PUSH 100 mg QAM VIKA Administration Vancomycin HCl 1 each 10/04/25 12:47 Vancomycin For Acute Kidney Injury IVPB PRN PRN Vancomycin Protocol Radiology Results: ITS Impressions Head CT 10/04/25 07:09 IMPRESSION: 1. No acute intracranial findings. Chest/Abdomen/Pelvis CT 10/04/25 07:26 IMPRESSION: CHEST- 1. Interstitial pulmonary edema and small right pleural effusion. 2. Superimposed pneumonitis or interstitial lung disease not excluded. ABDOMEN/PELVIS- 1. Colonic hepatic flexure wall thickening. Colitis and/or malignancy. 2. Additional findings as above. Chest X-Ray 10/05/25 07:50 Impression: 1: Cardiomegaly with persistent pulmonary edema. Labs Labs: Laboratory Results - last 24 hr 10/04/25 10/04/25 10/04/25 10:13 12:42 14:14 WBC RBC Hgb Hct MCV MCH MCHC RDW Plt Count MPV Immature Gran % (Auto) Neut % (Auto) Lymph % (Auto) Casey % (Auto) Eos % (Auto) Baso % (Auto) Lymph # (Auto) Casey # (Auto) Eos # (Auto) Baso # (Auto) Abs Immat Gran (auto) Absolute Neuts (auto) Absolute Nucleated RBC Nucleated RBC % % Immature Plt Fraction PT INR APTT Puncture Site Left radial ABG pH 7.333 L ABG pCO2 44.7 ABG pO2 208.4 H ABG PO2/FiO2 Ratio 2.08 ABG HCO3 23.2 ABG O2 Saturation 99.3 ABG O2 Content 14.4 L ABG Base Excess -2.6 A-a Gradient 459.9 Oxyhemoglobin 98.6 Carboxyhemoglobin Methemoglobin Reduced Hemoglobin Total Hemoglobin 10.0 L O2 Delivery Device Ventilator O2 Liters/Min 0.0 Minute Volume Not Reportable Vent Rate 22 Vent Mode Cmv FiO2 100 Tidal Volume 500 PEEP 12 Peak Inspir Pressure Not Reportable Pressure Support 0 Sodium Potassium Chloride Carbon Dioxide Anion Gap BUN Creatinine Estim Creat Clear Calc Estimated GFR Glucose POC Capillary Glucose Hemoglobin A1c Lactic Acid 2.4 H Calcium Phosphorus Magnesium Total Bilirubin AST ALT Alkaline Phosphatase Total Creatine Kinase 1210 H Troponin I 4.720 H* NT-Pro-B Natriuret Pep 67383 H Total Protein Albumin TSH (Reflex) Nasal MRSA (PCR) Not detected Random Vancomycin Ethyl Alcohol < 10 Hepatitis A Ab Total Hep Bs Antigen Hep Bs Antibody Hep B Core Total Ab Hepatitis C Ab Screen 10/04/25 10/04/25 10/04/25 14:17 15:59 17:08 WBC RBC Hgb 9.0 L Hct 28.4 L MCV MCH MCHC RDW Plt Count MPV Immature Gran % (Auto) Neut % (Auto) Lymph % (Auto) Casey % (Auto) Eos % (Auto) Baso % (Auto) Lymph # (Auto) Casey # (Auto) Eos # (Auto) Baso # (Auto) Abs Immat Gran (auto) Absolute Neuts (auto) Absolute Nucleated RBC Nucleated RBC % % Immature Plt Fraction PT INR APTT Puncture Site ABG pH ABG pCO2 ABG pO2 ABG PO2/FiO2 Ratio ABG HCO3 ABG O2 Saturation ABG O2 Content ABG Base Excess A-a Gradient Oxyhemoglobin Carboxyhemoglobin Methemoglobin Reduced Hemoglobin Total Hemoglobin O2 Delivery Device O2 Liters/Min Minute Volume Vent Rate Vent Mode FiO2 Tidal Volume PEEP Peak Inspir Pressure Pressure Support Sodium Potassium Chloride Carbon Dioxide Anion Gap BUN Creatinine Estim Creat Clear Calc Estimated GFR Glucose POC Capillary Glucose 145 H Hemoglobin A1c 5.9 H Lactic Acid Calcium Phosphorus Magnesium Total Bilirubin AST ALT Alkaline Phosphatase Total Creatine Kinase Troponin I 8.720 H* D NT-Pro-B Natriuret Pep Total Protein Albumin TSH (Reflex) 3.360 Nasal MRSA (PCR) Random Vancomycin Ethyl Alcohol Hepatitis A Ab Total Cancelled Hep Bs Antigen Negative Hep Bs Antibody Negative Hep B Core Total Ab Cancelled Hepatitis C Ab Screen Negative 10/04/25 10/04/25 10/04/25 18:40 20:16 20:20 WBC 15.2 H RBC 2.44 L Hgb 8.4 L 8.5 L Hct 26.9 L 27.0 L MCV 110.2 H MCH 34.4 H MCHC 31.2 L RDW 15.4 H Plt Count 72 L MPV 9.9 Immature Gran % (Auto) 0.7 H Neut % (Auto) 86.3 H Lymph % (Auto) 5.5 L Casey % (Auto) 6.9 Eos % (Auto) 0.3 Baso % (Auto) 0.3 Lymph # (Auto) 0.84 L Casey # (Auto) 1.1 H Eos # (Auto) 0.1 Baso # (Auto) 0.1 Abs Immat Gran (auto) 0.10 H Absolute Neuts (auto) 13.1 H Absolute Nucleated RBC 0.000 Nucleated RBC % 0.0 % Immature Plt Fraction 2.0 PT INR APTT Puncture Site ABG pH ABG pCO2 ABG pO2 ABG PO2/FiO2 Ratio ABG HCO3 ABG O2 Saturation ABG O2 Content ABG Base Excess A-a Gradient Oxyhemoglobin Carboxyhemoglobin Methemoglobin Reduced Hemoglobin Total Hemoglobin O2 Delivery Device O2 Liters/Min Minute Volume Vent Rate Vent Mode FiO2 Tidal Volume PEEP Peak Inspir Pressure Pressure Support Sodium Potassium Chloride Carbon Dioxide Anion Gap BUN Creatinine Estim Creat Clear Calc Estimated GFR Glucose POC Capillary Glucose Hemoglobin A1c Lactic Acid Calcium Phosphorus Magnesium 1.6 Total Bilirubin AST ALT Alkaline Phosphatase Total Creatine Kinase Troponin I 13.000 H* D NT-Pro-B Natriuret Pep Total Protein Albumin TSH (Reflex) Nasal MRSA (PCR) Random Vancomycin Ethyl Alcohol Hepatitis A Ab Total Hep Bs Antigen Hep Bs Antibody Hep B Core Total Ab Hepatitis C Ab Screen 10/04/25 10/04/25 10/05/25 21:41 23:59 03:39 WBC 10.2 H RBC 2.29 L Hgb 7.9 L Hct 25.0 L MCV 109.2 H MCH 34.5 H MCHC 31.6 L RDW 15.2 H Plt Count 63 L MPV 9.6 Immature Gran % (Auto) 0.5 Neut % (Auto) 78.3 H Lymph % (Auto) 10.6 L Casey % (Auto) 9.2 H Eos % (Auto) 1.1 Baso % (Auto) 0.3 Lymph # (Auto) 1.08 Casey # (Auto) 0.9 H Eos # (Auto) 0.1 Baso # (Auto) 0.0 Abs Immat Gran (auto) 0.05 H Absolute Neuts (auto) 8.0 H Absolute Nucleated RBC 0.000 Nucleated RBC % 0.0 % Immature Plt Fraction 1.4 PT 19.1 H 19.4 H INR 1.6 1.7 APTT 39.1 H 72.4 H Puncture Site ABG pH ABG pCO2 ABG pO2 ABG PO2/FiO2 Ratio ABG HCO3 ABG O2 Saturation ABG O2 Content ABG Base Excess A-a Gradient Oxyhemoglobin Carboxyhemoglobin Methemoglobin Reduced Hemoglobin Total Hemoglobin O2 Delivery Device O2 Liters/Min Minute Volume Vent Rate Vent Mode FiO2 Tidal Volume PEEP Peak Inspir Pressure Pressure Support Sodium 138 Potassium 5.0 Chloride 111 H Carbon Dioxide 24 Anion Gap 3 L BUN 38 H D Creatinine 2.87 H Estim Creat Clear Calc 39 Estimated GFR 22 L Glucose 138 H POC Capillary Glucose 146 H Hemoglobin A1c Lactic Acid 1.6 Calcium 8.0 L Phosphorus 4.7 H Magnesium 1.9 Total Bilirubin 3.5 H AST 122 H ALT 26 Alkaline Phosphatase 107 Total Creatine Kinase 1007 H Troponin I NT-Pro-B Natriuret Pep Total Protein 7.3 Albumin 2.9 L TSH (Reflex) Nasal MRSA (PCR) Random Vancomycin Ethyl Alcohol Hepatitis A Ab Total Hep Bs Antigen Hep Bs Antibody Hep B Core Total Ab Hepatitis C Ab Screen 10/05/25 10/05/25 10/05/25 05:40 07:34 08:22 WBC RBC Hgb Hct MCV MCH MCHC RDW Plt Count MPV Immature Gran % (Auto) Neut % (Auto) Lymph % (Auto) Casey % (Auto) Eos % (Auto) Baso % (Auto) Lymph # (Auto) Casey # (Auto) Eos # (Auto) Baso # (Auto) Abs Immat Gran (auto) Absolute Neuts (auto) Absolute Nucleated RBC Nucleated RBC % % Immature Plt Fraction PT INR APTT Puncture Site Right radial ABG pH 7.408 ABG pCO2 39.4 ABG pO2 164.6 H ABG PO2/FiO2 Ratio 3.29 ABG HCO3 24.3 ABG O2 Saturation 99.1 ABG O2 Content 13.1 L ABG Base Excess -0.3 A-a Gradient 147.6 Oxyhemoglobin 98.2 Carboxyhemoglobin 0.8 Methemoglobin 0.3 Reduced Hemoglobin 0.7 Total Hemoglobin 9.2 L O2 Delivery Device Ventilator O2 Liters/Min Not Reportable Minute Volume Not Reportable Vent Rate 22 Vent Mode Cmv FiO2 50 Tidal Volume 500 PEEP 12 Peak Inspir Pressure Not Reportable Pressure Support Not Reportable Sodium Potassium Chloride Carbon Dioxide Anion Gap BUN Creatinine Estim Creat Clear Calc Estimated GFR Glucose POC Capillary Glucose 146 H Hemoglobin A1c Lactic Acid Calcium Phosphorus Magnesium Total Bilirubin AST ALT Alkaline Phosphatase Total Creatine Kinase Troponin I NT-Pro-B Natriuret Pep Total Protein Albumin TSH (Reflex) Nasal MRSA (PCR) Random Vancomycin 10.8 Ethyl Alcohol Hepatitis A Ab Total Hep Bs Antigen Hep Bs Antibody Hep B Core Total Ab Hepatitis C Ab Screen 10/05/25 10:37 WBC 8.7 RBC 2.25 L Hgb 7.8 L Hct 24.6 L MCV 109.3 H MCH 34.7 H MCHC 31.7 L RDW 15.4 H Plt Count 60 L MPV 9.8 Immature Gran % (Auto) Neut % (Auto) Lymph % (Auto) Casey % (Auto) Eos % (Auto) Baso % (Auto) Lymph # (Auto) Casey # (Auto) Eos # (Auto) Baso # (Auto) Abs Immat Gran (auto) Absolute Neuts (auto) Absolute Nucleated RBC Nucleated RBC % % Immature Plt Fraction 1.7 PT INR APTT 84.3 H Puncture Site ABG pH ABG pCO2 ABG pO2 ABG PO2/FiO2 Ratio ABG HCO3 ABG O2 Saturation ABG O2 Content ABG Base Excess A-a Gradient Oxyhemoglobin Carboxyhemoglobin Methemoglobin Reduced Hemoglobin Total Hemoglobin O2 Delivery Device O2 Liters/Min Minute Volume Vent Rate Vent Mode FiO2 Tidal Volume PEEP Peak Inspir Pressure Pressure Support Sodium Potassium Chloride Carbon Dioxide Anion Gap BUN Creatinine Estim Creat Clear Calc Estimated GFR Glucose POC Capillary Glucose Hemoglobin A1c Lactic Acid Calcium Phosphorus Magnesium Total Bilirubin AST ALT Alkaline Phosphatase Total Creatine Kinase Troponin I NT-Pro-B Natriuret Pep Total Protein Albumin TSH (Reflex) Nasal MRSA (PCR) Random Vancomycin Ethyl Alcohol Hepatitis A Ab Total Hep Bs Antigen Hep Bs Antibody Hep B Core Total Ab Hepatitis C Ab Screen
--- NOTE | 2025-10-05 11:42 | P.CONNP_ITS ---
Assessment and Plan Assessment and plan (1) Acute kidney injury: Code(s): N17.9 - Acute kidney failure, unspecified Status: Acute Assessment and Plan: * as noted by recent labs on 10/05 (creatinine up to 2.87mg/dL) * admission creatinine at baseline * now complicated by diminished urine output and volume overload * suspect multifactorial etiology: * hemodynamic instability/shock * infection/sepsis * hypoxia * cocaine use * CHF * rhabdomyolysis * NSTEMI * other(?) * check urine studies, renal ultrasound and trend CPK * remains at risk for [employer]/dialysis * continue efforts to opitmize hemodynamics * follow trend of repeat labs and UOP (2) Stage 3b chronic kidney disease: Code(s): N18.32 - Chronic kidney disease, stage 3b Status: Chronic Assessment and Plan: * creatinine 1.87mg/dL ~ 8 months ago on hospital discharge * was fluctuating 1.8 - 2.2mg/dL in the context of IV diuresis in January 2025 * prior to that, creatinine was ~ 1.1 - 1.2 in March of 2023 * presumably due to combination of diuretic use for CHF, diabetes, and hypertension +/- vascular disease (3) Septic shock: Code(s): A41.9 - Sepsis, unspecified organism; R65.21 - Severe sepsis with septic shock Status: Acute Assessment and Plan: * presented with hypotension unresponsive to IVF resuscitation * s/p 3.5L IVFs with no improvement in blood pressure * s/p RIJ central line placement and initiation of vasopressor therapy * suspected source include pnuemonia, lower abdominal wall cellulitis, and/or heart failure * follow culture data (blood, sputum, and urine) * trend lactic acid * on antibiotics * follow trend of hemodynamics * wean pressors as able (4) Acute respiratory failure: Code(s): J96.00 - Acute respiratory failure, unspecified whether with hypoxia or hypercapnia Status: Acute Assessment and Plan: * intubated in ER for impending respiratory failure * noted hypoxia * worsening SOB with IVF resuscitation * decline in respiratory status felt to be secondary to CHF +/- pnuemonia * on bronchodilator therapy * ventilator weaning as tolerated (5) Acute CHF: Code(s): I50.9 - Heart failure, unspecified Status: Acute Assessment and Plan: * known history * admission CXR with pulmonary vascular congestion * last Echo (01/16/25)noted: * ; previous Echo (01/16/25) noted: * left ventricular systolic function is normal, estimated at 65 - 70% * left ventricular diastolic function is grade I diastolic dysfunction * moderate to severe aortic valve stenosis with a peak velocity of 407 cm/s, mean gradient of 43 mmHg, and aortic valve area of 1.2 cm2 * mild aortic valve regurgitation * mild to moderate tricuspid valve regurgitation * pulmonary hypertension, estimated pulmonary arterial systolic pressure is 48 mmHg * repeat Echo ordered * unable to diurese in the context of hypotension/shock (6) Anasarca: Code(s): R60.1 - Generalized edema Status: Acute Assessment and Plan: * likely a combination of CHF and liver cirrhosis/hypoalbuminemia * MARIO/ARF not likely helping this issue * IVFs hold given this issue and pulmonary edema * unable to diuresis due to hemodynamic instability (7) Cirrhosis: Code(s): K74.60 - Unspecified cirrhosis of liver Status: Acute Assessment and Plan: * as noted by CT imaging: * noted spleen enlargement and cirrhosis * also with anasarca * trend bilirubin and LFTs * GI following (8) Anemia: Code(s): D64.9 - Anemia, unspecified Status: Acute Assessment and Plan: * noted with trend since admission * concern for GI loss given bleeding noted from OG tube * this appears to have resolved * suspect related to MARIO, CKD, and liver disease/cirrhosis * PRBC transfusion per protocol * follow trend of H/H (9) Thrombocytopenia: Code(s): D69.6 - Thrombocytopenia, unspecified Status: Acute Assessment and Plan: * chronic issue * possibly related to cirrhosis and alcohol use * was following with Hem/Onc in the past * follow trend (10) DM2 (diabetes mellitus, type 2): Code(s): E11.9 - Type 2 diabetes mellitus without complications Status: Chronic Assessment and Plan: * follow accu-cheks * glycemic control per home health travel ot/hospitalist Long and extensive discussion (> 20 minutes) with patient's at bedside with regarding to his worsening renal dysfunction. I voiced my concern is with her that given his declining urine output in conjunction with his pulmonary vascular congestion/edema and anasarca in the context of liver cirrhosis and congestive heart failure, he is at high risk for requiring renal replacement therapy/dialysis. His urine output has already declined and he is already showing signs of fluid retention currently. Unfortunately, the procedure of renal replacement therapy/dialysis will be further complicated by his hemodynamic instability & thrombocytopenia and associated high risk for further bleeding. I discussed with her that although dialysis is an option, I am unclear how well this intervention will work with regard to maintaining stability in his fluid status given his suboptimal hemodynamics and I doubt that this will change his other medical issues/problems including his respiratory failure, congestive heart failure, and liver cirrhosis (i.e. multi-system organ failure). I will continue to follow the patient with you while he remains hospitalized and make further recommendations as deemed necessary. Thank you for allowing me to participate in the care of this patient. L History of Present Illness Reason for Consult Consult date: 10/05/25 Reason for consult: acute renal failure (on chronic kidney disease) Chief Complaint Chief complaint: Sepsis History of Present Illness Narrative: All the information I have obtained is from review of the electronic medical record as well as discussion with the physician/nurses involved the patient's care as well as his at bedside as the patient is unable to provide any history as he is currently intubated and on mechanical ventilation. The patient is a 65-year-old male an extensive past medical history as outlined who presented to [facility] due to shortness of breath and weakness. The patient was apparently at home and found down on the ground with altered mental status and difficulty getting up from the floor. He apparently also was in mild respiratory distress was noted be breathing quite heavily. EMS was summoned to his home for assistance. To his, EMS noted the patient was hypoxic oxygen saturations of 89% room air. He was apparently awake and alert and able answer all questions that time. He was subsequently transported to the emergency room for further assessment. Workup and evaluation emergency room demonstrated the patient to be hemodynamically unstable with a systolic BP in 60s in association with tachycardia tachypnea and ongoing hypoxia requiring supplemental oxygen other than his generalized weakness and shortness of breath, he apparently had no complaints of chest pain nausea, vomiting, diarrhea abdominal pain, lightheadedness or palpitations. His only real complaint that he did not feel well. Routine testing was significant [place] [address] chronic thrombocytopenia, creatinine of 1.8 lactic acidosis with initial reading of 5.9 with improvement of 4.2, and alcohol level 23. Viral testing for RSV, influenza, and COVID were negative. His urinalysis was indicative of urinary tract infection. However his urine drug screen was positive cocaine and cannabinoids. His chest x-ray showed no acute cardiopulmonary findings but with possible pulmonary fibrosis. CT scan of the head showed no acute intracranial findings. Subsequent CT of his chest /abdomen / pelvis showed interstitial pulmonary edema, small right pleural effusion colonic hepatic flexure wall thickening consistent with colitis and/or malignancy and liver cirrhosis. He initially received aggressive IV fluid resuscitation given the concern for sepsis but this resulted in worsening of his respiratory status. He remained hypotensive in spite of the IV fluids as. His respiratory status worsened to the point where he had to be intubated and placed on mechanical ventilation and due to his unresponsiveness to IV fluids central line was placed is initiated on vasopressor therapy to maintain his mean arterial pressure. After appropriate cultures were obtained, he was initiated on broad-spectrum IV antibiotics and he was subsequently admitted to the ICU for further evaluation and therapy. Since his admission, his overall clinical condition has deteriorated. His renal function has worsened by labs done this morning and his troponins have been quite elevated consistent with a non ST elevation [place]. he was initially on both Levophed and vasopressin but has been since weaned down to just 1 vasopressor. He has clinical evidence of volume overload and his urine output has declined in the last 24 hours as well. Renal consultation was requested due to his acute kidney injury/ acute renal failure on top his baseline chronic kidney disease. The only previous labs I have for comparison are with regard to his hospitalization in January of this year where his creatinine was fluctuating anywhere 1.8-2 2 mg per. The presumed etiology of his underlying renal insufficiency relates to his diabetes, hypertension possible vascular disease and his known CHF the necessity of chronic diuretic therapy. As already mentioned, his renal function on admission was at baseline but has deteriorated by labs done this morning. This is further complicated by his decreasing urine output and clear evidence volume overload by imaging and exam. Currently, the patient remains intubated and on mechanical ventilation and does not appear to be in any acute distress. Review of Systems 2 Review of Systems: As per HPI. [facility] Past Medical History Medical History (Updated 10/05/25 @ 17:09 by Dereck Baez MD) Alcohol abuse Lactic acidosis Chronic anemia Aortic stenosis Echo January 2025 moderate to severe aortic valve stenosis with a peak velocity of 407 cm/s, mean gradient of 43 mmHg, and aortic valve area of 1.2 cm2. 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 He has 3 children and is and lives with his . Code status full code Smoking packs per day: 0.5 Smoking cigarettes per day: 10.0 Years smoked: 15 Smoking pack-years: 7.50 Smoking status: Former smoker Tobacco type: cigarettes Second hand tobacco smoke exposure: Yes Alcohol intake: current Drinks per week: 4 Substance use: current Substance use type: marijuana and crack/cocaine Last use: 10/03/25 Lack of Transportation: No Lack of Food: Never True Current Housing: I Have Housing Concerned About Future Housing: No Difficulty Paying Gas/Electric Bills: YES Difficulty Paying for Meds: No Currently Unemployed: No Education: High School Diploma/GED Difficulty w/ Childcare or Family Care: No Living arrangements: with family Spiritual care concerns: No Meds Home Medications and Allergies Home Medications ?Medication ?Instructions ?Recorded ?Confirmed ?Type insulin glargine 100 unit/mL (3 28 unit subcut HS 01/0710/04/25 History mL) subcutaneous pen (Basaglar KwikPen U-100 Insulin) Held on 10/04/25. Instructions: Patient no longer taking insulin regular human 100 unit/mL 15 unit subcut ACHS 01/25/23 10/04/25 History injection solution (Humulin R Regular U-100 Insulin) ferrous sulfate 325 mg (65 mg 325 mg PO DAILY 01/15/25 10/04/25 History iron) tablet furosemide 20 mg tablet 40 mg PO DAILY 01/15/2509/09 History potassium chloride 10 mEq 20 meq PO DAILY 01/15/25 History tablet,extended release Held on 10/04/25. Instructions: Patient no longer taking carvedilol 3.125 mg tablet 3.125 mg PO Q12H 10/04/25 1 12/04/24 History Allergies Allergy/AdvReac Type Severity Reaction Status Date / Time oxycodone Allergy Intermediate Itching Verified 10/04/25 12:24 empagliflozin (From Allergy Mild Swelling Verified 10/04/25 12:24 Jardiance) Vital Signs Vital Signs Temp Pulse Resp BP Pulse Ox O2 Del Method FiO2 10/05/25 11:00 97.9 F 85 22 H 116/54 L 97 40 10/05/25 10:00 80 121/49 L 10/05/25 10:00 80 121/49 L 10/05/25 10:00 80 20 10/05/25 10:00 80 20 10/05/25 10:00 77 10/05/25 10:00 98.3 F 80 22 H 121/49 L 98 10/05/25 09:00 98.4 F 81 23 H 126/54 L 98 10/05/25 08:50 81 122/57 L 10/05/25 08:26 81 22 H 10/05/25 08:26 81 22 H 10/05/25 08:00 79 122/55 L 10/05/25 08:00 79 122/55 L 10/05/25 08:00 79 22 H 10/05/25 08:00 79 22 H 10/05/25 08:00 80 10/05/25 08:00 22 H 98 Mechanical Ventilation 50 10/05/25 08:00 98.7 F 79 22 H 122/55 L 100 10/05/25 07:32 80 22 H 10/05/25 07:31 80 22 H 10/05/25 07:15 80 22 H 10/05/25 07:08 80 22 H 10/05/25 07:06 80 124/48 L 10/05/25 07:00 50 10/05/25 07:00 98.8 F 81 22 H 126/53 L 100 10/05/25 06:08 80 22 H 10/05/25 06:00 80 10/05/25 06:00 99.0 F 80 22 H 112/45 L 100 10/05/25 06:00 80 112/45 L 10/05/25 06:00 80 22 H 10/05/25 06:00 80 112/45 L 10/05/25 06:00 80 22 H 10/05/25 05:59 83 100 Mechanical Ventilation 10/05/25 05:40 84 127/58 L 10/05/25 05:00 99.3 F 82 16 115/53 L 98 10/05/25 04:15 84 122/50 L 10/05/25 04:00 84 10/05/25 04:00 22 H 97 Mechanical Ventilation 10/05/25 04:00 84 119/52 L 10/05/25 04:00 84 22 H 10/05/25 04:00 84 22 H 10/05/25 04:00 84 119/52 L 10/05/25 04:00 99.4 F 84 22 H 119/52 L 97 10/05/25 03:00 99.6 F 84 22 H 116/50 L 97 10/05/25 03:00 50 10/05/25 02:12 85 22 H 10/05/25 02:07 86 97 Mechanical Ventilation 50 10/05/25 02:03 86 22 H 10/05/25 02:00 86 10/05/25 02:00 99.8 F H 86 22 H 124/53 L 97 10/05/25 02:00 86 124/53 L 10/05/25 02:00 86 22 H 10/05/25 02:00 86 22 H 10/05/25 02:00 86 124/53 L 10/05/25 01:00 99.9 F H 85 22 H 118/60 97 10/05/25 00:00 86 10/05/25 00:00 22 H 97 Mechanical Ventilation 10/05/25 00:00 100.0 F H 86 22 H 120/51 L 97 10/05/25 00:00 86 120/51 L 10/05/25 00:00 86 120/51 L 10/05/25 00:00 86 22 H 10/05/25 00:00 86 22 H 10/04/25 23:26 50 10/04/25 23:00 100.0 F H 89 22 H 120/47 L 96 10/04/25 22:30 89 124/53 L 10/04/25 22:05 96 96 Mechanical Ventilation 50 10/04/25 22:00 89 22 H 10/04/25 22:00 89 22 H 10/04/25 22:00 89 116/51 L 10/04/25 22:00 100.1 F H 89 22 H 116/51 L 96 10/04/25 22:00 89 10/04/25 22:00 89 116/51 L 10/04/25 21:00 100.0 F H 97 22 H 122/53 L 96 10/04/25 20:27 97 22 H 94 Mechanical Ventilation 50 10/04/25 20:27 94 22 H 10/04/25 20:16 91 96 Mechanical Ventilation 50 10/04/25 20:13 90 22 H 10/04/25 20:06 92 22 H 10/04/25 20:00 22 H 96 Mechanical Ventilation 10/04/25 20:00 92 10/04/25 20:00 99.9 F H 92 22 H 127/51 L 96 10/04/25 20:00 93 22 H 10/04/25 20:00 93 127/51 L 10/04/25 20:00 93 127/51 L 10/04/25 20:00 93 22 H 10/04/25 19:26 50 10/04/25 19:00 99.7 F H 95 22 H 117/50 L 96 10/04/25 18:00 96 22 H 10/04/25 18:00 96 118/50 L 10/04/25 18:00 95 118/50 L 10/04/25 18:00 99.7 F H 95 22 H 118/50 L 96 10/04/25 18:00 96 10/04/25 17:41 97 96 Mechanical Ventilation 50 10/04/25 17:03 94 96/53 L 10/04/25 17:00 99.7 F H 96 22 H 116/60 97 Exam 2 Narrative: GENERAL APPEARANCE: well developed well nourished male intubated/sedated and on mechanical ventilation HEENT: normocephalic, atraumatic, scleral icterus noted, nares patient NECK: thick with RIJ central line in place MOUTH: normal mucus membranes; ETT in place CARDIOVASCULAR: RRR, normal S1 and S2, no rub detected RESPIRATORY: coarse breath sounds; decreased at bases ABDOMEN: soft, nontender, nondistended, hypoactive bowel sounds EXTREMITIES: no evidence of cyanosis, clubbing, 1+ edema NEUROLOGICAL: unable to assess (intubated/sedated and on ventilator) SKIN: chronic venous stasis changes; thickened skin on lower abdomen noted Results Lab Results 10/06/25 04:15 10/06/25 04:15 Lab results: Most recent lab results ABG pH 7.408 (7.350-7.450) 10/05/25 05:40 ABG pCO2 39.4 mmHg (35.0-45.0) 10/05/25 05:40 ABG pO2 164.6 mmHg (80.0-100.0) H 10/05/25 05:40 ABG HCO3 24.3 mEq/l (22.0-26.0) 10/05/25 05:40 ABG O2 Saturation 99.1 % (95.0-100.0) 10/05/25 05:40 Calcium 8.0 mg/dL (8.4-10.2) L 10/05/25 03:39 Phosphorus 4.7 mg/dL (2.5-4.5) H 10/05/25 03:39 Magnesium 1.9 mg/dL (1.6-2.3) 10/05/25 03:39 Urine Creatinine 234.0 mg/dL 10/05/25 11:56
[2025-10-05 12:27] LABS: Urea Random Urine 271 MG/DL
[2025-10-05 12:38] LABS: Urine Eos QC 2nd Tech Confirmed
[2025-10-05 12:39] LABS: Total Protein Urine Random 178 mg/dL; Ur Ttl Prot Creatinine Ratio 0.76 mg/mg (0-0.20)
--- NOTE | 2025-10-05 12:46 | PM.CNCAR ---
Assessment and Plan Assessment and plan (1) Aortic stenosis: Code(s): I35.0 - Nonrheumatic aortic (valve) stenosis Status: Acute Plan This is a very ill 65-year-old man with alcoholic liver disease, unfortunately also with cocaine and cannabis use entered the hospital with weakness fever significant anemia respiratory insufficiency requiring intubation and ventilator support. In this setting troponin levels were drawn and they are significantly elevated. There is no electrocardiographic evidence of acute DE. we would treat this patient in a supportive fashion this is a type 2 myocardial infarction related to the picture of anemia hypotension respiratory failure and sepsis. No clinical evidence to suggest plaque rupture/acutely closed coronary artery. In this setting I am going to recommend stopping heparin especially since he is significantly anemic. Supportive care as a Radi penis support provided to this very unfortunate patient. It is not my intention to bring this patient to the dairy laboratory technician for recommend aggressive evaluation of his cardiac disease since for principal problems are noncardiac and would preclude PCI or aggressive revascularization Garcia Beckford MD [facility] History of Present Illness History of Present Illness Consult date/time: 10/05/25 12:46 Reason For Visit: Sepsis Narrative: This is a 65-year-old man I am seeing at the request of the hospitalist today because of elevated troponin level in the setting of sepsis, significant anemia and hypotension, respiratory failure necessitating intubation in the emergency room. This is a patient that is in the ICU intubated on ventilator support obviously incapable of providing any history the entire history is obtained from chart review. He apparently came to the hospital yesterday feeling poorly with fever some shortness of breath and severe generalized weakness. He was hypotensive and had tenuous respiratory status in the emergency department and was intubated and admitted to the ICU. He was not reporting symptoms of chest pain pressure or heaviness according to the records he is not known to have heart disease. Unfortunately he does have a history of drug abuse both with cocaine cannabis and alcohol. He is known to have alcoholic liver disease and on admission he was found to be anemic with hemoglobin of 7 g and some coffee-ground material from his NG tube. GI consultation has been obtained and is we are consulted to see him in this setting after this admission his troponin level judi up to 13. He is also chronically thrombocytopenic attributed to his alcoholic liver disease. His electrocardiogram does not show any evidence of acute injury pattern. He is known to have aortic valve stenosis according to echocardiogram that is in the record here from January of this year. Echocardiogram shows aortic valve stenosis to be at least moderate if not severe based on the Doppler data. Review of Systems Review of Systems: ROS unobtainable: Yes unobtainable due to endotracheal tube PMFSH Past Medical History Medical History (Updated 10/04/25 @ 14:20 by Delfin Tracey MD) Alcohol abuse Lactic acidosis Chronic anemia Aortic stenosis Echo January 2025 moderate to severe aortic valve stenosis with a peak velocity of 407 cm/s, mean gradient of 43 mmHg, and aortic valve area of 1.2 cm2. 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 He has 3 children and is and lives with his . Code status full code Smoking packs per day: 0.5 Smoking cigarettes per day: 10.0 Years smoked: 15 Smoking pack-years: 7.50 Smoking status: Former smoker Tobacco type: cigarettes Second hand tobacco smoke exposure: Yes Alcohol intake: current Drinks per week: 4 Substance use: current Substance use type: marijuana and crack/cocaine Last use: 10/03/25 Lack of Transportation: No Lack of Food: Never True Current Housing: I Have Housing Concerned About Future Housing: No Difficulty Paying Gas/Electric Bills: YES Difficulty Paying for Meds: No Currently Unemployed: No Education: High School Diploma/GED Difficulty w/ Childcare or Family Care: No Living arrangements: with family Spiritual care concerns: No Meds Home Medications and Allergies Home Medications ?Medication ?Instructions ?Recorded ?Confirmed ?Type insulin glargine 100 unit/mL (3 28 unit subcut HS 01/25/23 10/04/25 History mL) subcutaneous pen (Basaglar KwikPen U-100 Insulin) Held on 10/04/25. Instructions: Patient no longer taking insulin regular human 100 unit/mL 15 unit subcut ACHS 01/25/23 10/04/25 History injection solution (Humulin R Regular U-100 Insulin) ferrous sulfate 325 mg (65 mg 325 mg PO DAILY 01/15/25 10/04/25 History iron) tablet furosemide 20 mg tablet 40 mg PO DAILY 01/15/25 10/04/25 History potassium chloride 10 mEq 20 meq PO DAILY 01/15/25 10/04/25 History tablet,extended release Held on 10/04/25. Instructions: Patient no longer taking carvedilol 3.125 mg tablet 3.125 mg PO Q12H 10/04/25 10/04/25 History Allergies Allergy/AdvReac Type Severity Reaction Status Date / Time oxycodone Allergy Intermediate Itching Verified 10/04/25 12:24 empagliflozin (From Allergy Mild Swelling Verified 10/04/25 12:24 Jardiance) Vital Signs Vital Signs - 24 hr 10/04/25 13:00 10/04/25 13:30 10/04/25 14:00 Temperature 37.5 C Pulse Rate 120 H 121 H 103 H Respiratory Rate 22 H Blood Pressure 76/40 L 116/65 Pulse Oximetry 99 Oxygen Delivery Fraction of Inspired Oxygen 10/04/25 14:00 10/04/25 14:00 10/04/25 14:00 Temperature Pulse Rate 102 H 102 H 102 H Respiratory Rate 22 H Blood Pressure 96/53 L 96/53 L 96/53 L Pulse Oximetry 99 Oxygen Delivery Fraction of Inspired Oxygen 10/04/25 14:00 10/04/25 14:00 10/04/25 14:28 Temperature Pulse Rate 102 H 102 H Respiratory Rate 22 H 22 H Blood Pressure Pulse Oximetry Oxygen Delivery Fraction of Inspired Oxygen 60 10/04/25 15:00 10/04/25 15:28 10/04/25 15:34 Temperature 37.5 C Pulse Rate 105 H 104 H 102 H Respiratory Rate 22 H 22 H Blood Pressure 108/62 Pulse Oximetry 96 97 Oxygen Delivery Mechanical Ventilation Fraction of Inspired Oxygen 60 10/04/25 15:44 10/04/25 16:00 10/04/25 16:00 Temperature Pulse Rate 102 H 97 97 Respiratory Rate 22 H Blood Pressure 96/54 L 96/54 L Pulse Oximetry Oxygen Delivery Fraction of Inspired Oxygen 10/04/25 16:00 10/04/25 16:00 10/04/25 16:00 Temperature Pulse Rate 97 97 Respiratory Rate 22 H 22 H Blood Pressure Pulse Oximetry 98 Oxygen Delivery Mechanical Ventilation Fraction of Inspired Oxygen 60 10/04/25 16:00 10/04/25 16:00 10/04/25 16:09 Temperature 37.6 C H Pulse Rate 96 98 94 Respiratory Rate 22 H Blood Pressure 97/54 L Pulse Oximetry 98 Oxygen Delivery Fraction of Inspired Oxygen 10/04/25 17:00 10/04/25 17:03 10/04/25 17:41 Temperature 37.6 C H Pulse Rate 96 94 97 Respiratory Rate 22 H Blood Pressure 116/60 96/53 L Pulse Oximetry 97 96 Oxygen Delivery Mechanical Ventilation Fraction of Inspired Oxygen 50 10/04/25 18:00 10/04/25 18:00 10/04/25 18:00 Temperature 37.6 C H Pulse Rate 96 95 95 Respiratory Rate 22 H Blood Pressure 118/50 L 118/50 L Pulse Oximetry 96 Oxygen Delivery Fraction of Inspired Oxygen 10/04/25 18:00 10/04/25 18:00 10/04/25 19:00 Temperature 37.6 C H Pulse Rate 96 96 95 Respiratory Rate 22 H 22 H Blood Pressure 118/50 L 117/50 L Pulse Oximetry 96 Oxygen Delivery Fraction of Inspired Oxygen 10/04/25 19:26 10/04/25 20:00 10/04/25 20:00 Temperature Pulse Rate 93 93 Respiratory Rate 22 H Blood Pressure 127/51 L Pulse Oximetry Oxygen Delivery Fraction of Inspired Oxygen 50 10/04/25 20:00 10/04/25 20:00 10/04/25 20:00 Temperature 37.7 C H Pulse Rate 93 93 92 Respiratory Rate 22 H 22 H Blood Pressure 127/51 L 127/51 L Pulse Oximetry 96 Oxygen Delivery Fraction of Inspired Oxygen 10/04/25 20:00 10/04/25 20:00 10/04/25 20:06 Temperature Pulse Rate 92 92 Respiratory Rate 22 H 22 H Blood Pressure Pulse Oximetry 96 Oxygen Delivery Mechanical Ventilation Fraction of Inspired Oxygen 10/04/25 20:13 10/04/25 20:16 10/04/25 20:27 Temperature Pulse Rate 90 91 94 Respiratory Rate 22 H 22 H Blood Pressure Pulse Oximetry 96 Oxygen Delivery Mechanical Ventilation Fraction of Inspired Oxygen 50 10/04/25 20:27 10/04/25 21:00 10/04/25 22:00 Temperature 37.8 C H Pulse Rate 97 97 89 Respiratory Rate 22 H 22 H Blood Pressure 122/53 L 116/51 L Pulse Oximetry 94 96 Oxygen Delivery Mechanical Ventilation Fraction of Inspired Oxygen 50 10/04/25 22:00 10/04/25 22:00 10/04/25 22:00 Temperature 37.8 C H Pulse Rate 89 89 89 Respiratory Rate 22 H Blood Pressure 116/51 L 116/51 L Pulse Oximetry 96 Oxygen Delivery Fraction of Inspired Oxygen 10/04/25 22:00 10/04/25 22:00 10/04/25 22:05 Temperature Pulse Rate 89 89 96 Respiratory Rate 22 H 22 H Blood Pressure Pulse Oximetry 96 Oxygen Delivery Mechanical Ventilation Fraction of Inspired Oxygen 50 10/04/25 22:30 10/04/25 23:00 10/04/25 23:26 Temperature 37.8 C H Pulse Rate 89 89 Respiratory Rate 22 H Blood Pressure 124/53 L 120/47 L Pulse Oximetry 96 Oxygen Delivery Fraction of Inspired Oxygen 50 10/05/25 00:00 10/05/25 00:00 10/05/25 00:00 Temperature Pulse Rate 86 86 86 Respiratory Rate 22 H 22 H Blood Pressure 120/51 L Pulse Oximetry Oxygen Delivery Fraction of Inspired Oxygen 10/05/25 00:00 10/05/25 00:00 10/05/25 00:00 Temperature 37.8 C H Pulse Rate 86 86 Respiratory Rate 22 H 22 H Blood Pressure 120/51 L 120/51 L Pulse Oximetry 97 97 Oxygen Delivery Mechanical Ventilation Fraction of Inspired Oxygen 10/05/25 00:00 10/05/25 01:00 10/05/25 02:00 Temperature 37.7 C H Pulse Rate 86 85 86 Respiratory Rate 22 H Blood Pressure 118/60 124/53 L Pulse Oximetry 97 Oxygen Delivery Fraction of Inspired Oxygen 10/05/25 02:00 10/05/25 02:00 10/05/25 02:00 Temperature Pulse Rate 86 86 86 Respiratory Rate 22 H 22 H Blood Pressure 124/53 L Pulse Oximetry Oxygen Delivery Fraction of Inspired Oxygen 10/05/25 02:00 10/05/25 02:00 10/05/25 02:03 Temperature 37.7 C H Pulse Rate 86 86 86 Respiratory Rate 22 H 22 H Blood Pressure 124/53 L Pulse Oximetry 97 Oxygen Delivery Fraction of Inspired Oxygen 10/05/25 02:07 10/05/25 02:12 10/05/25 03:00 Temperature Pulse Rate 86 85 Respiratory Rate 22 H Blood Pressure Pulse Oximetry 97 Oxygen Delivery Mechanical Ventilation Fraction of Inspired Oxygen 50 50 10/05/25 03:00 10/05/25 04:00 10/05/25 04:00 Temperature 37.6 C 37.4 C Pulse Rate 84 84 84 Respiratory Rate 22 H 22 H Blood Pressure 116/50 L 119/52 L 119/52 L Pulse Oximetry 97 97 Oxygen Delivery Fraction of Inspired Oxygen 10/05/25 04:00 10/05/25 04:00 10/05/25 04:00 Temperature Pulse Rate 84 84 84 Respiratory Rate 22 H 22 H Blood Pressure 119/52 L Pulse Oximetry Oxygen Delivery Fraction of Inspired Oxygen 10/05/25 04:00 10/05/25 04:00 10/05/25 04:15 Temperature Pulse Rate 84 84 Respiratory Rate 22 H Blood Pressure 122/50 L Pulse Oximetry 97 Oxygen Delivery Mechanical Ventilation Fraction of Inspired Oxygen 10/05/25 05:00 10/05/25 05:40 10/05/25 05:59 Temperature 37.4 C Pulse Rate 82 84 83 Respiratory Rate 16 Blood Pressure 115/53 L 127/58 L Pulse Oximetry 98 100 Oxygen Delivery Mechanical Ventilation Fraction of Inspired Oxygen 10/05/25 06:00 10/05/25 06:00 10/05/25 06:00 Temperature Pulse Rate 80 80 80 Respiratory Rate 22 H 22 H Blood Pressure 112/45 L Pulse Oximetry Oxygen Delivery Fraction of Inspired Oxygen 10/05/25 06:00 10/05/25 06:00 10/05/25 06:00 Temperature 37.2 C Pulse Rate 80 80 80 Respiratory Rate 22 H Blood Pressure 112/45 L 112/45 L Pulse Oximetry 100 Oxygen Delivery Fraction of Inspired Oxygen 10/05/25 06:08 10/05/25 07:00 10/05/25 07:00 Temperature 37.1 C Pulse Rate 80 81 Respiratory Rate 22 H 22 H Blood Pressure 126/53 L Pulse Oximetry 100 Oxygen Delivery Fraction of Inspired Oxygen 50 10/05/25 07:06 10/05/25 07:08 10/05/25 07:15 Temperature Pulse Rate 80 80 80 Respiratory Rate 22 H 22 H Blood Pressure 124/48 L Pulse Oximetry Oxygen Delivery Fraction of Inspired Oxygen 10/05/25 07:31 10/05/25 07:32 10/05/25 08:00 Temperature 37.1 C Pulse Rate 80 80 79 Respiratory Rate 22 H 22 H 22 H Blood Pressure 122/55 L Pulse Oximetry 100 Oxygen Delivery Fraction of Inspired Oxygen 10/05/25 08:00 10/05/25 08:00 10/05/25 08:00 Temperature Pulse Rate 80 79 Respiratory Rate 22 H 22 H Blood Pressure Pulse Oximetry 98 Oxygen Delivery Mechanical Ventilation Fraction of Inspired Oxygen 50 10/05/25 08:00 10/05/25 08:26 10/05/25 08:26 Temperature Pulse Rate 79 81 81 Respiratory Rate 22 H 22 H 22 H Blood Pressure Pulse Oximetry Oxygen Delivery Fraction of Inspired Oxygen 10/05/25 08:50 10/05/25 09:00 10/05/25 10:00 Temperature 36.9 C 36.8 C Pulse Rate 81 81 80 Respiratory Rate 23 H 22 H Blood Pressure 122/57 L 126/54 L 121/49 L Pulse Oximetry 98 98 Oxygen Delivery Fraction of Inspired Oxygen 10/05/25 10:00 10/05/25 10:00 10/05/25 10:00 Temperature Pulse Rate 77 80 80 Respiratory Rate 20 20 Blood Pressure Pulse Oximetry Oxygen Delivery Fraction of Inspired Oxygen 10/05/25 11:00 10/05/25 11:00 10/05/25 12:00 Temperature 36.6 C Pulse Rate 85 75 Respiratory Rate 22 H 22 H Blood Pressure 116/54 L Pulse Oximetry 97 Oxygen Delivery Fraction of Inspired Oxygen 40 10/05/25 12:00 10/05/25 12:00 Temperature 36.3 C L Pulse Rate 75 75 Respiratory Rate 22 H 22 H Blood Pressure 110/53 L Pulse Oximetry 97 Oxygen Delivery Fraction of Inspired Oxygen Exam Const: Other: Morbidly obese very ill-appearing 65-year-old man intubated on mechanical ventilator support HENMT: Mouth: Yes moist mucous membranes Eyes: Sclera: sclerae normal Neck: Other: Patient has very thick neck no ability to discern venous distention carotid pulses are grossly intact bilateral Resp: Other: Central rhonchi are noted anteriorly Cardio: Rate: regular rate Rhythm: regular rhythm Other: Low-pitched grade 2/6 crescendo-decrescendo murmur which is audible best at the right upper sternal border no diastolic murmur GI: GI Palp: Yes Soft to palpation Auscultation: normal bowel sounds Urinary Catheter: Urinary Catheter: patent and draining Skin: General skin exam: normal color Extrem: Other: Findings of chronic venous insufficiency Results Labs and Meds 10/05/25 10:37 10/05/25 03:39 Lab results: Cardiac Enzymes 10/04/25 10/04/25 10/04/25 Range/Units 12:42 15:59 18:40 AST (17-59) U/L Troponin I 4.720 H* 8.720 H* D 13.000 H* D (0.000-0.034) ng/mL 10/05/25 Range/Units 03:39 AST 122 H (17-59) U/L Troponin I (0.000-0.034) ng/mL Coagulation 10/04/25 10/05/25 10/05/25 Range/Units 21:41 03:39 10:37 PT 19.1 H 19.4 H (11.1-14.7) Seconds APTT 39.1 H 72.4 H 84.3 H (22.3-36.8) Seconds CBC 10/04/25 10/04/25 10/04/25 Range/Units 14:17 20:16 20:20 WBC 15.2 H (4.5-10.0) K/mm3 RBC 2.44 L (4.6-6.20) M/mm3 Hgb 9.0 L 8.4 L 8.5 L (14.0-18.0) g/dL Hct 28.4 L 26.9 L 27.0 L (42.0-52.0) % Plt Count 72 L (150-375) k/mm3 Lymph # (Auto) 0.84 L (0.9-3.2) K/mm3 Howard # (Auto) 1.1 H (0.1-0.6) K/mm3 Eos # (Auto) 0.1 (0-0.3) K/mm3 Baso # (Auto) 0.1 (0.0-0.1) K/mm3 10/05/25 10/05/25 Range/Units 03:39 10:37 WBC 10.2 H 8.7 (4.5-10.0) K/mm3 RBC 2.29 L 2.25 L (4.6-6.20) M/mm3 Hgb 7.9 L 7.8 L (14.0-18.0) g/dL Hct 25.0 L 24.6 L (42.0-52.0) % Plt Count 63 L 60 L (150-375) k/mm3 Lymph # (Auto) 1.08 (0.9-3.2) K/mm3 Howard # (Auto) 0.9 H (0.1-0.6) K/mm3 Eos # (Auto) 0.1 (0-0.3) K/mm3 Baso # (Auto) 0.0 (0.0-0.1) K/mm3 Comprehensive Metabolic Panel 10/05/25 Range/Units 03:39 Sodium 138 (137-145) mmol/L Potassium 5.0 (3.4-5.0) mmol/L Chloride 111 H (98-107) mmol/L Carbon Dioxide 24 (22-30) mmol/L BUN 38 H D (9-20) mg/dL Creatinine 2.87 H (0.7-1.3) mg/dL Glucose 138 H (65-110) mg/dL Calcium 8.0 L (8.4-10.2) mg/dL AST 122 H (17-59) U/L ALT 26 (6-50) U/L Alkaline Phosphatase 107 (38-126) U/L Total Protein 7.3 (6.3-8.2) g/dL Albumin 2.9 L (3.5-5.1) g/dL Intake and Output 10/04/25 10/05/25 10/05/25 23:59 07:59 15:59 Intake Total 687.8 1768.1 404.6 Output Total 150 425 Balance 537.8 1343.1 404.6 Intake: IV 687.8 1768.1 404.6 Fentanyl 2,500Mcg/Ad444jp(*Crx 120 189.7 58.3 2,500 mcg In 250 ml @ 200 MCG/ HR 20 mls/hr IV CONT .[id number] [facility] Rx#:[id number] Heparin Sod/D5w 100 Units/ml 25 69 65 ,000 units In 250 ml @ 1,000 UNITS/HR 10 mls/hr IV CONT . Q24H [facility] Rx#:[id number] Midazolam 100Mg/Ns 100Ml(*Crx) 75.7 84.2 31.3 100 mg In 100 ml @ 10 MG/HR 10 mls/hr IV CONT .Q10H [facility] Rx#: [id number] Norepinephrine 8 mg/D5w 250 ml 222.9 106.0 8 mg In 250 ml @ 6 MCG/MIN 11. 25 mls/hr IV CONT .[id number] [facility] Rx#:[id number] Sodium Bicarbonate 8.4% 150 meq 1100 In Water, Sterile For Injection 950 ml @ 100 mls/hr IV CONT .Q11H [facility] Rx#:[id number] Vasopressin Inj 100 units In 19.2 19.2 Dextrose 5% 95 ml @ 0.04 UNITS/ MIN 2.4 mls/hr IV CONT .[id number] [facility] Rx#:[id number] Albumin Human 25% 25 gm/100 ml 100 100 100 100 ml @ 60 mls/hr IVPB Q6HR [facility] Rx#:[id number] Cefepime 2 gm In Sodium 50 50 Chloride 0.9% IV 50 ml @ 100 mls/hr IVPB Q12HR [facility] Rx#: [id number] metroNIDAZOLE 500 MG/ISO 100ML 100 100 100 500 mg In 100 ml @ 100 mls/hr IVPB Q8H [facility] Rx#:[id number] Oral 0 Tube Feeding 0 Tube Flush 0 Other 0 Output: Catheter Urine 150 225 Urethral Catheter 150 225 Gastric Drainage 200 [place] Sump Oral 200 Patient Weight 10/05/25 23:59 Weight 165.4 kg
--- NOTE | 2025-10-05 13:40 | P.PNINT_ITS ---
Progress Note: A&P Assessment and Plan (1) Acute respiratory failure: Code(s): J96.00 - Acute respiratory failure, unspecified whether with hypoxia or hypercapnia Status: Acute Assessment and Plan: 10/04: Patient presented the ED via EMS with complains of generalized weakness, fevers, shortness of breath and fever. When EMS arrived to his house he was found on the ground, unable to get up off the floor. Patient's O2 sats were in the 80s on room air. Patient was placed on supplemental oxygen. In the ED patient was awake, alert, oriented was able to answer questions. O2 sats were improved but he was hypotensive, once he was given IV fluids per sepsis protocol he was more short of breath and was intubated -10/04: Intubated in the ER for impending respiratory failure likely related to CHF -currently CMV mode of ventilation,PEEP to 12, 50% FiO2, -chest x-ray and ABGs reviewed -wean FiO2 to maintain O2 sats > 92% -continue bronchodilators -sedated with fentanyl and Versed infusion, maintain RASS of 0 to -2 -daily SBT and SAT (2) Septic shock: Code(s): A41.9 - Sepsis, unspecified organism; R65.21 - Severe sepsis with septic shock Status: Acute Assessment and Plan: Patient with hypotension, likely related to pneumonia, possible lower abdomen cellulitis as seen on the CT scan. Could be related to heart failure -10/04: patient received 3.5 L IV fluid bolus in the ER, despite which his blood pressures remain low, is right-sided IJ central line was inserted, patient started on Levophed -upon arrival to the ICU patient was on Levophed 20 mcg/min with systolic blood pressures in the 80s, I advised the bedside RN to go up on the Levophed and ordered vasopressin -will maintain MAP > 65 mmHg or SBP > 100 mmHg -patient had does have a provided pulse pressure -will obtain troponin -will repeat echocardiogram echocardiogram -lactic acid was 5.9 on admission, repeat was 4.2 -will trend lactic acid -patient was given 1 dose of ceftriaxone and azithromycin in the ER -given history of alcoholism, cocaine abuse will switch to cefepime, vancomycin and azithromycin (10/04) -10/04: Blood cultures have been obtained -10/04: Urine cultures obtained and pain -10/04: sputum culture obtained and pending -10/04: Obtain urine Legionella and strep pneumo antigen, pending -chest x-ray shows Pulmonary vascular congestion, hold additional IV fluid -will give albumin for intravascular volume expansion 10/05: Patient has multi-system organ failure, have discussed with the spouse 01/16/2025: Echocardiogram Summary 1. Left ventricular chamber dimension is normal. 2. Left ventricular systolic function is normal, estimated at 65-70%. 3. There is mildly increased left ventricular wall thickness. 4. The left ventricular diastolic function is grade I diastolic dysfunction. 5. Right ventricular systolic function is normal. 6. Left atrial chamber dimension is moderately enlarged. 7. Right atrial chamber dimension is moderately enlarged. 8. There is moderate aortic valve calcification. 9. There is moderate to severe aortic valve stenosis with a peak velocity of 407 cm/s, mean gradient of 43 mmHg, and aortic valve area of 1.2 cm2. 10. There is mild aortic valve regurgitation. 11. There is mild to moderate tricuspid valve regurgitation. 12. Pulmonary hypertension, estimated pulmonary arterial systolic pressure is 48 mmHg. (3) MARIO (acute kidney injury): Code(s): N17.9 - Acute kidney failure, unspecified Status: Acute Assessment and Plan: Acute kidney injury, creatinine 1.83 on admission, (1.87-2.19 in January of 2025, prior to that patient's creatinine was 1.10-1.20 in March of 2023) -patient received 3.5 L of IV fluid bolus in the ER -will continue to monitor renal function, electrolytes and urine output -will give albumin for intravascular volume expansion, hold additional IV fluids due to pulmonary vascular congestion on chest x-ray -10/05: Worsening creatinine, decreased urine output, likely related to rhabdomyolysis, CK levels trending down, continue maintenance IV fluid -appreciate Nephrology evaluation (4) Acute CHF: Code(s): I50.9 - Heart failure, unspecified Status: Acute Assessment and Plan: Patient has history of CHF, he does take furosemide at home, echocardiogram as above -chest x-ray shows pulmonary vascular congestion after receiving IV fluid -repeat echo has been ordered (5) DM2 (diabetes mellitus, type 2): Code(s): E11.9 - Type 2 diabetes mellitus without complications Status: Acute Assessment and Plan: Accu-Cheks and sliding scale insulin -patient does take Lantus at home, will restart if needed (6) Thrombocytopenia: Code(s): D69.6 - Thrombocytopenia, unspecified Status: Acute Assessment and Plan: Chronic thrombocytopenia could be related to cirrhosis, alcohol use -patient was evaluated by Oncology on 01/28/2023 -continue to monitor, -will transfuse as needed (7) Cirrhosis: Code(s): K74.60 - Unspecified cirrhosis of liver Status: Acute Assessment and Plan: CT scan of the abdomen and pelvis showed spleen enlargement and cirrhosis -patient also has anasarca -elevated bilirubin (8) Anasarca: Code(s): R60.1 - Generalized edema Status: Acute Assessment and Plan: Likely related to cirrhosis (9) GI bleed: Code(s): K92.2 - Gastrointestinal hemorrhage, unspecified Status: Acute Assessment and Plan: OG tube has blood draining, could be related to trauma secondary to OG tube placement or variceal bleed or gastritis as patient has cirrhosis -Protonix IV q.12 hours -appreciate GI evaluation, no more GI bleeding noted from the OG tube -patient does have cirrhosis, MELD score of 26 (10) Anemia: Code(s): D64.9 - Anemia, unspecified Status: Acute Assessment and Plan: Patient also has anemia with hemoglobin of 10.7 (which is close to his baseline) -will continue to monitor, transfuse for hemoglobin < 7.0 (11) Aortic stenosis: Code(s): I35.0 - Nonrheumatic aortic (valve) stenosis Status: Acute Assessment and Plan: Moderate to severe aortic valve stenosis with mean gradient of 43 mmHg and aortic valve area of 1.2 cm2 -will be cautious with IV fluids -repeat echocardiogram has been ordered (12) NSTEMI (non-ST elevated myocardial infarction): Code(s): I21.4 - Non-ST elevation (NSTEMI) myocardial infarction Status: Acute Assessment and Plan: 10/04: Troponins were 4.720, 8.720 and 13.00. -cardiology was consulted, recommended starting heparin infusion -10/05: Heparin infusion was discontinued as this was thought to be secondary to type 2 myocardial infarction secondary to anemia, hypotension, respiratory failure and septic shock. Plan DVT prophylaxis: SCDs, no chemoprophylaxis due to blood in OG tube likely related to GI bleeding and thrombocytopenia Stress ulcer prophylaxis: Protonix IV q.12 hours Nutrition: NPO for now Code Status: Full code Critical Care Time Spent: 55 minutes 10/05: Discussed with patient's Angelia, updated with patient's condition and plan of care. I discussed with her regarding main STEMI, aortic stenosis, acute respiratory failure with CHF, acute kidney injury with rhabdomyolysis, liver cirrhosis, thrombocytopenia. I have explained to her that this is multi-system organ failure which carries a high mortality risk. She is aware and wants to continue full support at this time as she states he has a lot of prayers going for him. Discussed at length with Cardiology, Gastroenterology, Nephrology. Due to a high probability of clinically significant, life threatening deterioration, the patient required my highest level of preparedness to intervene emergently and I personally spent this critical care time directly and personally managing the patient. This critical care time included obtaining a history; examining the patient; pulse oximetry; ordering and review of studies; arranging urgent treatment with development of a management plan; evaluation of patient's response to treatment; frequent reassessment; and discussions with other providers. It was exclusive of separately billable procedures and treating other patients and teaching time. Please see Assessment and Plan section and the rest of the note for further information on patient assessment and treatment This dictation may have been done utilizing a voice recognition system. Attempts have been made to correct errors. However, there may be uncorrected grammatical, spelling, and recognitions errors present. Subjective Date/time seen: 10/05/25 13:40 Interval history: Reason for consult: Septic shock, pneumonia, pulmonary vascular congestion, colitis, acute kidney injury 10/05/2025: Patient seen and examined the ICU, remains intubated on CMV mode of ventilation, peep of 12, 50% FiO2. Sedated fentanyl and Versed infusion. Patient does not open his eyes or follow simple commands. Urine output has been low, worsening creatinine. On 10/04/2028, troponins peaked at 13, cardiology recommended starting heparin drip. Patient was started on heparin infusion. This morning hemoglobin has trended down. Discussed with Cardiology, heparin infusion was discontinued. Review of Systems Review of Systems: ROS unobtainable: Yes unobtainable due to endotracheal tube, unobtainable due to medical condition and unobtainable due to mental status Exam Narrative: General: Intubated, sedated, in no acute distress HEENT:? Pupils equal and reactive, sclera is icteric, ETT in place Neck:? Thick neck, right IJ central line in place Respiratory:? Coarse breath sounds bilaterally, decreased at bases, no wheezing Cardiac:? S1-S2 is normal, sinus tachycardia Abdomen:? Soft, nontender, nondistended, obese, hypoactive bowel sounds, thickening of the skin on the lower part of the abdomen with no redness but warm Extremities:? Bilateral lower extremity pitting edema, dopplerable pedal pulses Neuro:? Patient is intubated, sedated, does not open his eyes, follows simple commands a withdraws to pain Skin:? Chronic venous stasis changes and chronic skin discoloration which is likely due to diabetes according the . Patient also has a callus on the ball of the right toe Psych:? Unable to assess at this time Objective Data Vital Signs Vital Signs: Vital Signs - 24 hr 10/04/25 14:00 10/04/25 14:00 10/04/25 14:00 Temperature Pulse Rate 103 H 102 H 102 H Respiratory Rate 22 H Blood Pressure 96/53 L 96/53 L Pulse Oximetry 99 Oxygen Delivery Fraction of Inspired Oxygen 10/04/25 14:00 10/04/25 14:00 10/04/25 14:00 Temperature Pulse Rate 102 H 102 H 102 H Respiratory Rate 22 H 22 H Blood Pressure 96/53 L Pulse Oximetry Oxygen Delivery Fraction of Inspired Oxygen 10/04/25 14:28 10/04/25 15:00 10/04/25 15:28 Temperature 99.5 F Pulse Rate 105 H 104 H Respiratory Rate 22 H 22 H Blood Pressure 108/62 Pulse Oximetry 96 Oxygen Delivery Fraction of Inspired Oxygen 60 10/04/25 15:34 10/04/25 15:44 10/04/25 16:00 Temperature Pulse Rate 102 H 102 H 97 Respiratory Rate 22 H Blood Pressure 96/54 L Pulse Oximetry 97 Oxygen Delivery Mechanical Ventilation Fraction of Inspired Oxygen 60 10/04/25 16:00 10/04/25 16:00 10/04/25 16:00 Temperature Pulse Rate 97 97 97 Respiratory Rate 22 H 22 H Blood Pressure 96/54 L Pulse Oximetry Oxygen Delivery Fraction of Inspired Oxygen 10/04/25 16:00 10/04/25 16:00 10/04/25 16:00 Temperature 99.7 F H Pulse Rate 96 98 Respiratory Rate 22 H Blood Pressure 97/54 L Pulse Oximetry 98 98 Oxygen Delivery Mechanical Ventilation Fraction of Inspired Oxygen 60 10/04/25 16:09 10/04/25 17:00 10/04/25 17:03 Temperature 99.7 F H Pulse Rate 94 96 94 Respiratory Rate 22 H Blood Pressure 116/60 96/53 L Pulse Oximetry 97 Oxygen Delivery Fraction of Inspired Oxygen 10/04/25 17:41 10/04/25 18:00 10/04/25 18:00 Temperature 99.7 F H Pulse Rate 97 96 95 Respiratory Rate 22 H Blood Pressure 118/50 L Pulse Oximetry 96 96 Oxygen Delivery Mechanical Ventilation Fraction of Inspired Oxygen 50 10/04/25 18:00 10/04/25 18:00 10/04/25 18:00 Temperature Pulse Rate 95 96 96 Respiratory Rate 22 H Blood Pressure 118/50 L 118/50 L Pulse Oximetry Oxygen Delivery Fraction of Inspired Oxygen 10/04/25 19:00 10/04/25 19:26 10/04/25 20:00 Temperature 99.7 F H Pulse Rate 95 93 Respiratory Rate 22 H 22 H Blood Pressure 117/50 L Pulse Oximetry 96 Oxygen Delivery Fraction of Inspired Oxygen 50 10/04/25 20:00 10/04/25 20:00 10/04/25 20:00 Temperature Pulse Rate 93 93 93 Respiratory Rate 22 H Blood Pressure 127/51 L 127/51 L Pulse Oximetry Oxygen Delivery Fraction of Inspired Oxygen 10/04/25 20:00 10/04/25 20:00 10/04/25 20:00 Temperature 99.9 F H Pulse Rate 92 92 Respiratory Rate 22 H 22 H Blood Pressure 127/51 L Pulse Oximetry 96 96 Oxygen Delivery Mechanical Ventilation Fraction of Inspired Oxygen 10/04/25 20:06 10/04/25 20:13 10/04/25 20:16 Temperature Pulse Rate 92 90 91 Respiratory Rate 22 H 22 H Blood Pressure Pulse Oximetry 96 Oxygen Delivery Mechanical Ventilation Fraction of Inspired Oxygen 50 10/04/25 20:27 10/04/25 20:27 10/04/25 21:00 Temperature 100.0 F H Pulse Rate 94 97 97 Respiratory Rate 22 H 22 H 22 H Blood Pressure 122/53 L Pulse Oximetry 94 96 Oxygen Delivery Mechanical Ventilation Fraction of Inspired Oxygen 50 10/04/25 22:00 10/04/25 22:00 10/04/25 22:00 Temperature 100.1 F H Pulse Rate 89 89 89 Respiratory Rate 22 H Blood Pressure 116/51 L 116/51 L Pulse Oximetry 96 Oxygen Delivery Fraction of Inspired Oxygen 10/04/25 22:00 10/04/25 22:00 10/04/25 22:00 Temperature Pulse Rate 89 89 89 Respiratory Rate 22 H 22 H Blood Pressure 116/51 L Pulse Oximetry Oxygen Delivery Fraction of Inspired Oxygen 10/04/25 22:05 10/04/25 22:30 10/04/25 23:00 Temperature 100.0 F H Pulse Rate 96 89 89 Respiratory Rate 22 H Blood Pressure 124/53 L 120/47 L Pulse Oximetry 96 96 Oxygen Delivery Mechanical Ventilation Fraction of Inspired Oxygen 50 10/04/25 23:26 10/05/25 00:00 10/05/25 00:00 Temperature Pulse Rate 86 86 Respiratory Rate 22 H 22 H Blood Pressure Pulse Oximetry Oxygen Delivery Fraction of Inspired Oxygen 50 10/05/25 00:00 10/05/25 00:00 10/05/25 00:00 Temperature 100.0 F H Pulse Rate 86 86 86 Respiratory Rate 22 H Blood Pressure 120/51 L 120/51 L 120/51 L Pulse Oximetry 97 Oxygen Delivery Fraction of Inspired Oxygen 10/05/25 00:00 10/05/25 00:00 10/05/25 01:00 Temperature 99.9 F H Pulse Rate 86 85 Respiratory Rate 22 H 22 H Blood Pressure 118/60 Pulse Oximetry 97 97 Oxygen Delivery Mechanical Ventilation Fraction of Inspired Oxygen 10/05/25 02:00 10/05/25 02:00 10/05/25 02:00 Temperature Pulse Rate 86 86 86 Respiratory Rate 22 H 22 H Blood Pressure 124/53 L Pulse Oximetry Oxygen Delivery Fraction of Inspired Oxygen 10/05/25 02:00 10/05/25 02:00 10/05/25 02:00 Temperature 99.8 F H Pulse Rate 86 86 86 Respiratory Rate 22 H Blood Pressure 124/53 L 124/53 L Pulse Oximetry 97 Oxygen Delivery Fraction of Inspired Oxygen 10/05/25 02:03 10/05/25 02:07 10/05/25 02:12 Temperature Pulse Rate 86 86 85 Respiratory Rate 22 H 22 H Blood Pressure Pulse Oximetry 97 Oxygen Delivery Mechanical Ventilation Fraction of Inspired Oxygen 50 10/05/25 03:00 10/05/25 03:00 10/05/25 04:00 Temperature 99.6 F 99.4 F Pulse Rate 84 84 Respiratory Rate 22 H 22 H Blood Pressure 116/50 L 119/52 L Pulse Oximetry 97 97 Oxygen Delivery Fraction of Inspired Oxygen 50 10/05/25 04:00 10/05/25 04:00 10/05/25 04:00 Temperature Pulse Rate 84 84 84 Respiratory Rate 22 H 22 H Blood Pressure 119/52 L Pulse Oximetry Oxygen Delivery Fraction of Inspired Oxygen 10/05/25 04:00 10/05/25 04:00 10/05/25 04:00 Temperature Pulse Rate 84 84 Respiratory Rate 22 H Blood Pressure 119/52 L Pulse Oximetry 97 Oxygen Delivery Mechanical Ventilation Fraction of Inspired Oxygen 10/05/25 04:15 10/05/25 05:00 10/05/25 05:40 Temperature 99.3 F Pulse Rate 84 82 84 Respiratory Rate 16 Blood Pressure 122/50 L 115/53 L 127/58 L Pulse Oximetry 98 Oxygen Delivery Fraction of Inspired Oxygen 10/05/25 05:59 10/05/25 06:00 10/05/25 06:00 Temperature Pulse Rate 83 80 80 Respiratory Rate 22 H Blood Pressure 112/45 L Pulse Oximetry 100 Oxygen Delivery Mechanical Ventilation Fraction of Inspired Oxygen 10/05/25 06:00 10/05/25 06:00 10/05/25 06:00 Temperature 99.0 F Pulse Rate 80 80 80 Respiratory Rate 22 H 22 H Blood Pressure 112/45 L 112/45 L Pulse Oximetry 100 Oxygen Delivery Fraction of Inspired Oxygen 10/05/25 06:00 10/05/25 06:08 10/05/25 07:00 Temperature 98.8 F Pulse Rate 80 80 81 Respiratory Rate 22 H 22 H Blood Pressure 126/53 L Pulse Oximetry 100 Oxygen Delivery Fraction of Inspired Oxygen 10/05/25 07:00 10/05/25 07:06 10/05/25 07:08 Temperature Pulse Rate 80 80 Respiratory Rate 22 H Blood Pressure 124/48 L Pulse Oximetry Oxygen Delivery Fraction of Inspired Oxygen 50 10/05/25 07:15 10/05/25 07:31 10/05/25 07:32 Temperature Pulse Rate 80 80 80 Respiratory Rate 22 H 22 H 22 H Blood Pressure Pulse Oximetry Oxygen Delivery Fraction of Inspired Oxygen 10/05/25 08:00 10/05/25 08:00 10/05/25 08:00 Temperature 98.7 F Pulse Rate 79 80 Respiratory Rate 22 H 22 H Blood Pressure 122/55 L Pulse Oximetry 100 98 Oxygen Delivery Mechanical Ventilation Fraction of Inspired Oxygen 50 10/05/25 08:00 10/05/25 08:00 10/05/25 08:00 Temperature Pulse Rate 79 79 79 Respiratory Rate 22 H 22 H Blood Pressure 122/55 L Pulse Oximetry Oxygen Delivery Fraction of Inspired Oxygen 10/05/25 08:00 10/05/25 08:26 10/05/25 08:26 Temperature Pulse Rate 79 81 81 Respiratory Rate 22 H 22 H Blood Pressure 122/55 L Pulse Oximetry Oxygen Delivery Fraction of Inspired Oxygen 10/05/25 08:50 10/05/25 09:00 10/05/25 10:00 Temperature 98.4 F 98.3 F Pulse Rate 81 81 80 Respiratory Rate 23 H 22 H Blood Pressure 122/57 L 126/54 L 121/49 L Pulse Oximetry 98 98 Oxygen Delivery Fraction of Inspired Oxygen 10/05/25 10:00 10/05/25 10:00 10/05/25 10:00 Temperature Pulse Rate 77 80 80 Respiratory Rate 20 20 Blood Pressure Pulse Oximetry Oxygen Delivery Fraction of Inspired Oxygen 10/05/25 10:00 10/05/25 10:00 10/05/25 11:00 Temperature 97.9 F Pulse Rate 80 80 85 Respiratory Rate 22 H Blood Pressure 121/49 L 121/49 L 116/54 L Pulse Oximetry 97 Oxygen Delivery Fraction of Inspired Oxygen 10/05/25 11:00 10/05/25 12:00 10/05/25 12:00 Temperature Pulse Rate 75 75 Respiratory Rate 22 H 22 H Blood Pressure Pulse Oximetry Oxygen Delivery Fraction of Inspired Oxygen 40 10/05/25 12:00 10/05/25 12:00 10/05/25 12:00 Temperature 97.4 F L Pulse Rate 75 75 Respiratory Rate 22 H 22 H Blood Pressure 110/53 L Pulse Oximetry 97 98 Oxygen Delivery Mechanical Ventilation Fraction of Inspired Oxygen 40 10/05/25 12:00 10/05/25 12:00 10/05/25 13:00 Temperature 97.6 F Pulse Rate 75 75 73 Respiratory Rate 22 H Blood Pressure 110/53 L 110/53 L 110/55 L Pulse Oximetry 97 Oxygen Delivery Fraction of Inspired Oxygen 10/05/25 13:25 Temperature Pulse Rate 74 Respiratory Rate 20 Blood Pressure Pulse Oximetry Oxygen Delivery Fraction of Inspired Oxygen Intake/Output Intake/Output: Intake & Output 10/02/25 10/03/25 10/04/25 10/05/25 23:59 23:59 23:59 23:59 Intake Total 3558.4 2468.9 Output Total 250 425 Balance 3308.4 2043.9 Meds/Results Medications: Active Medications Generic Name Dose Route Start Last Admin Trade Name Freq PRN Reason Stop Dose Admin Aspirin 81 mg 10/04/25 17:50 10/05/25 09:41 Aspirin 81 Mg Chewable Tablet PO 81 mg DAILY@0800 VIKA Administration Dextrose 12.5 gm 10/04/25 13:16 Dextrose 50% 25 Gm/50 Ml Syringe IV PUSH PRN PRN Hypoglycemia Protocol Glucagon 1 mg 10/04/25 13:16 Glucagon For Inj 1 Mg Vial IM PRN PRN Hypoglycemia Protocol Glucose 15 gm 10/04/25 13:16 Glucose Oral Gel 15 Gm Of Glucse In 37.5 Gm Tube PO PRN PRN Hypoglycemia Protocol Norepinephrine Bitartrate 8 mg in 250 mls @ 0 mls/hr 10/04/25 08:30 10/05/25 12:00 Levophed 8 Mg/D5w 250 Ml IV CONT 0 mcg/min .Q0M VIKA 0 mls/hr Protocol Titration 0 MCG/MIN Metronidazole 500 mg in 100 mls @ 100 mls/hr 10/04/25 17:00 10/05/25 11:09 Flagyl 500 Mg/Iso Soln 100 Ml IVPB Infused Q8H VIKA Infusion Albumin Human 100 mls @ 60 mls/hr 10/04/25 12:00 10/05/25 12:10 Albutein IVPB 60 mls/hr Q6HR VIKA Administration Vasopressin 100 units/ 100 mls @ 2.4 mls/hr 10/04/25 12:00 10/05/25 12:00 Dextrose IV CONT 0.04 units/min .[id number] VIKA 2.4 mls/hr Protocol Titration 0.04 UNITS/MIN Cefepime HCl 2 gm/ Sodium 50 mls @ 100 mls/hr 10/04/25 12:25 10/05/25 11:09 Chloride IVPB Infused Q12HR VIKA Infusion Azithromycin 250 mg in 250 mls @ 250 mls/hr 10/05/25 09:00 10/05/25 13:24 Zithromax IVPB Infused Q24H VIKA Infusion Dextrose 1,000 mls @ 100 mls/hr 10/04/25 13:16 Dextrose 5% 1,000 Ml IVPB PRN PRN Hypoglycemia Protocol Fentanyl Citrate 2,500 mcg in 250 mls @ 12.5 mls/hr 10/04/25 19:45 10/05/25 12:00 Fentanyl 2,500 Mcg/Ns 250 Ml IV CONT 125 mcg/hr .Q20H VIKA 12.5 mls/hr Protocol Titration 125 MCG/HR Midazolam HCl 100 mg in 100 mls @ 5 mls/hr 10/04/25 19:45 10/05/25 13:25 Versed 100 Mg/Ns 100 Ml IV CONT 5 mg/hr .Q20H VIKA 5 mls/hr Protocol Titration 5 MG/HR Insulin Aspart 3 - 6 units 10/04/25 18:00 10/05/25 12:10 Insulin Aspart (*Bkc) 100 Units/Ml SUB-Q Not Given Q6HR VIKA Protocol Ipratropium [place] 0.5 mg 10/04/25 14:00 10/05/25 07:46 Ipratropium Br 0.02% Inh Soln 0.5 Mg/2.5 Ml Vial INHALATION 0.5 mg Q6HRT VIKA Administration Levalbuterol HCl 0.63 mg 10/04/25 14:00 10/05/25 07:46 Levalbuterol Neb 1.25 Mg/3 Ml INHALATION 0.63 mg Q6HRT VIKA Administration Pantoprazole Sodium 40 mg 10/04/25 21:00 10/05/25 09:42 Pantoprazole Sodium Iv 40 Mg Vial IV PUSH 40 mg Q12HR VIKA Administration Perflutren Lipid Microsphere 0 ml 10/04/25 12:41 Perflutren Lipid Microspheres 1.5 Ml Vial Diluted To 10 Ml Total Volume IV PUSH 10/07/25 12:42 ONCE PRN adequate visualization Protocol Sodium Chloride 10 ml 10/04/25 14:00 10/05/25 07:12 Central Line Flush IV PUSH 10 ml Q8HR VIKA Administration Sodium Chloride 20 ml 10/04/25 09:27 Central Line Flush IV PUSH PRN PRN after blood draws Thiamine HCl 100 mg 10/05/25 09:00 10/05/25 09:59 Thiamine Hcl 200 Mg/2 Ml Vial IV PUSH 100 mg QAM VIKA Administration Vancomycin HCl 1 each 10/04/25 12:47 Vancomycin For Acute Kidney Injury IVPB PRN PRN Vancomycin Protocol Radiology Results: ITS Impressions Head CT 10/04/25 07:09 IMPRESSION: 1. No acute intracranial findings. Chest/Abdomen/Pelvis CT 10/04/25 07:26 IMPRESSION: CHEST- 1. Interstitial pulmonary edema and small right pleural effusion. 2. Superimposed pneumonitis or interstitial lung disease not excluded. ABDOMEN/PELVIS- 1. Colonic hepatic flexure wall thickening. Colitis and/or malignancy. 2. Additional findings as above. Chest X-Ray 10/05/25 07:50 Impression: 1: Cardiomegaly with persistent pulmonary edema. Labs Labs: Laboratory Results - last 24 hr 10/04/25 10/04/25 10/04/25 12:42 14:14 14:17 WBC RBC Hgb 9.0 L Hct 28.4 L MCV MCH MCHC RDW Plt Count MPV Immature Gran % (Auto) Neut % (Auto) Lymph % (Auto) [place] % (Auto) Eos % (Auto) Baso % (Auto) Lymph # (Auto) [place] # (Auto) Eos # (Auto) Baso # (Auto) Abs Immat Gran (auto) Absolute Neuts (auto) Absolute Nucleated RBC Nucleated RBC % % Immature Plt Fraction PT INR APTT Puncture Site Left radial ABG pH 7.333 L ABG pCO2 44.7 ABG pO2 208.4 H ABG PO2/FiO2 Ratio 2.08 ABG HCO3 23.2 ABG O2 Saturation 99.3 ABG O2 Content 14.4 L ABG Base Excess -2.6 A-a Gradient 459.9 Oxyhemoglobin 98.6 Carboxyhemoglobin Methemoglobin Reduced Hemoglobin Total Hemoglobin 10.0 L O2 Delivery Device Ventilator O2 Liters/Min 0.0 Minute Volume Not Reportable Vent Rate 22 Vent Mode Cmv FiO2 100 Tidal Volume 500 PEEP 12 Peak Inspir Pressure Not Reportable Pressure Support 0 Sodium Potassium Chloride Carbon Dioxide Anion Gap BUN Creatinine Estim Creat Clear Calc Estimated GFR Glucose POC Capillary Glucose Hemoglobin A1c 5.9 H Lactic Acid Calcium Phosphorus Magnesium Total Bilirubin AST ALT Alkaline Phosphatase Total Creatine Kinase Troponin I NT-Pro-B Natriuret Pep 54142 H Total Protein Albumin TSH (Reflex) 3.360 Urine Eosinophils U Random Total Protein Ur Random Sodium Ur Random Urea Urine Creatinine Protein/Creat Ratio 2 Random Vancomycin Hepatitis A Ab Total Cancelled Hep Bs Antigen Negative Hep Bs Antibody Negative Hep B Core Total Ab Cancelled Hepatitis C Ab Screen Negative 10/04/25 10/04/25 10/04/25 15:59 17:08 18:40 WBC RBC Hgb Hct MCV MCH MCHC RDW Plt Count MPV Immature Gran % (Auto) Neut % (Auto) Lymph % (Auto) [place] % (Auto) Eos % (Auto) Baso % (Auto) Lymph # (Auto) [place] # (Auto) Eos # (Auto) Baso # (Auto) Abs Immat Gran (auto) Absolute Neuts (auto) Absolute Nucleated RBC Nucleated RBC % % Immature Plt Fraction PT INR APTT Puncture Site ABG pH ABG pCO2 ABG pO2 ABG PO2/FiO2 Ratio ABG HCO3 ABG O2 Saturation ABG O2 Content ABG Base Excess A-a Gradient Oxyhemoglobin Carboxyhemoglobin Methemoglobin Reduced Hemoglobin Total Hemoglobin O2 Delivery Device O2 Liters/Min Minute Volume Vent Rate Vent Mode FiO2 Tidal Volume PEEP Peak Inspir Pressure Pressure Support Sodium Potassium Chloride Carbon Dioxide Anion Gap BUN Creatinine Estim Creat Clear Calc Estimated GFR Glucose POC Capillary Glucose 145 H Hemoglobin A1c Lactic Acid Calcium Phosphorus Magnesium 1.6 Total Bilirubin AST ALT Alkaline Phosphatase Total Creatine Kinase Troponin I 8.720 H* D 13.000 H* D NT-Pro-B Natriuret Pep Total Protein Albumin TSH (Reflex) Urine Eosinophils U Random Total Protein Ur Random Sodium Ur Random Urea Urine Creatinine Protein/Creat Ratio 2 Random Vancomycin Hepatitis A Ab Total Hep Bs Antigen Hep Bs Antibody Hep B Core Total Ab Hepatitis C Ab Screen 10/04/25 10/04/25 10/04/25 20:16 20:20 21:41 WBC 15.2 H RBC 2.44 L Hgb 8.4 L 8.5 L Hct 26.9 L 27.0 L MCV 110.2 H MCH 34.4 H MCHC 31.2 L RDW 15.4 H Plt Count 72 L MPV 9.9 Immature Gran % (Auto) 0.7 H Neut % (Auto) 86.3 H Lymph % (Auto) 5.5 L [place] % (Auto) 6.9 Eos % (Auto) 0.3 Baso % (Auto) 0.3 Lymph # (Auto) 0.84 L [place] # (Auto) 1.1 H Eos # (Auto) 0.1 Baso # (Auto) 0.1 Abs Immat Gran (auto) 0.10 H Absolute Neuts (auto) 13.1 H Absolute Nucleated RBC 0.000 Nucleated RBC % 0.0 % Immature Plt Fraction 2.0 PT 19.1 H INR 1.6 APTT 39.1 H Puncture Site ABG pH ABG pCO2 ABG pO2 ABG PO2/FiO2 Ratio ABG HCO3 ABG O2 Saturation ABG O2 Content ABG Base Excess A-a Gradient Oxyhemoglobin Carboxyhemoglobin Methemoglobin Reduced Hemoglobin Total Hemoglobin O2 Delivery Device O2 Liters/Min Minute Volume Vent Rate Vent Mode FiO2 Tidal Volume PEEP Peak Inspir Pressure Pressure Support Sodium Potassium Chloride Carbon Dioxide Anion Gap BUN Creatinine Estim Creat Clear Calc Estimated GFR Glucose POC Capillary Glucose Hemoglobin A1c Lactic Acid Calcium Phosphorus Magnesium Total Bilirubin AST ALT Alkaline Phosphatase Total Creatine Kinase Troponin I NT-Pro-B Natriuret Pep Total Protein Albumin TSH (Reflex) Urine Eosinophils U Random Total Protein Ur Random Sodium Ur Random Urea Urine Creatinine Protein/Creat Ratio 2 Random Vancomycin Hepatitis A Ab Total Hep Bs Antigen Hep Bs Antibody Hep B Core Total Ab Hepatitis C Ab Screen 10/04/25 10/05/25 10/05/25 23:59 03:39 05:40 WBC 10.2 H RBC 2.29 L Hgb 7.9 L Hct 25.0 L MCV 109.2 H MCH 34.5 H MCHC 31.6 L RDW 15.2 H Plt Count 63 L MPV 9.6 Immature Gran % (Auto) 0.5 Neut % (Auto) 78.3 H Lymph % (Auto) 10.6 L [place] % (Auto) 9.2 H Eos % (Auto) 1.1 Baso % (Auto) 0.3 Lymph # (Auto) 1.08 [place] # (Auto) 0.9 H Eos # (Auto) 0.1 Baso # (Auto) 0.0 Abs Immat Gran (auto) 0.05 H Absolute Neuts (auto) 8.0 H Absolute Nucleated RBC 0.000 Nucleated RBC % 0.0 % Immature Plt Fraction 1.4 PT 19.4 H INR 1.7 APTT 72.4 H Puncture Site Right radial ABG pH 7.408 ABG pCO2 39.4 ABG pO2 164.6 H ABG PO2/FiO2 Ratio 3.29 ABG HCO3 24.3 ABG O2 Saturation 99.1 ABG O2 Content 13.1 L ABG Base Excess -0.3 A-a Gradient 147.6 Oxyhemoglobin 98.2 Carboxyhemoglobin 0.8 Methemoglobin 0.3 Reduced Hemoglobin 0.7 Total Hemoglobin 9.2 L O2 Delivery Device Ventilator O2 Liters/Min Not Reportable Minute Volume Not Reportable Vent Rate 22 Vent Mode Cmv FiO2 50 Tidal Volume 500 PEEP 12 Peak Inspir Pressure Not Reportable Pressure Support Not Reportable Sodium 138 Potassium 5.0 Chloride 111 H Carbon Dioxide 24 Anion Gap 3 L BUN 38 H D Creatinine 2.87 H Estim Creat Clear Calc 39 Estimated GFR 22 L Glucose 138 H POC Capillary Glucose 146 H Hemoglobin A1c Lactic Acid 1.6 Calcium 8.0 L Phosphorus 4.7 H Magnesium 1.9 Total Bilirubin 3.5 H AST 122 H ALT 26 Alkaline Phosphatase 107 Total Creatine Kinase 1007 H Troponin I NT-Pro-B Natriuret Pep Total Protein 7.3 Albumin 2.9 L TSH (Reflex) Urine Eosinophils U Random Total Protein Ur Random Sodium Ur Random Urea Urine Creatinine Protein/Creat Ratio 2 Random Vancomycin Hepatitis A Ab Total Hep Bs Antigen Hep Bs Antibody Hep B Core Total Ab Hepatitis C Ab Screen 10/05/25 10/05/25 10/05/25 07:34 08:22 10:37 WBC 8.7 RBC 2.25 L Hgb 7.8 L Hct 24.6 L MCV 109.3 H MCH 34.7 H MCHC 31.7 L RDW 15.4 H Plt Count 60 L MPV 9.8 Immature Gran % (Auto) Neut % (Auto) Lymph % (Auto) [place] % (Auto) Eos % (Auto) Baso % (Auto) Lymph # (Auto) [place] # (Auto) Eos # (Auto) Baso # (Auto) Abs Immat Gran (auto) Absolute Neuts (auto) Absolute Nucleated RBC Nucleated RBC % % Immature Plt Fraction 1.7 PT INR APTT 84.3 H Puncture Site ABG pH ABG pCO2 ABG pO2 ABG PO2/FiO2 Ratio ABG HCO3 ABG O2 Saturation ABG O2 Content ABG Base Excess A-a Gradient Oxyhemoglobin Carboxyhemoglobin Methemoglobin Reduced Hemoglobin Total Hemoglobin O2 Delivery Device O2 Liters/Min Minute Volume Vent Rate Vent Mode FiO2 Tidal Volume PEEP Peak Inspir Pressure Pressure Support Sodium Potassium Chloride Carbon Dioxide Anion Gap BUN Creatinine Estim Creat Clear Calc Estimated GFR Glucose POC Capillary Glucose 146 H Hemoglobin A1c Lactic Acid Calcium Phosphorus Magnesium Total Bilirubin AST ALT Alkaline Phosphatase Total Creatine Kinase Troponin I NT-Pro-B Natriuret Pep Total Protein Albumin TSH (Reflex) Urine Eosinophils U Random Total Protein Ur Random Sodium Ur Random Urea Urine Creatinine Protein/Creat Ratio 2 Random Vancomycin 10.8 Hepatitis A Ab Total Hep Bs Antigen Hep Bs Antibody Hep B Core Total Ab Hepatitis C Ab Screen 10/05/25 10/05/25 11:16 11:56 WBC RBC Hgb Hct MCV MCH MCHC RDW Plt Count MPV Immature Gran % (Auto) Neut % (Auto) Lymph % (Auto) [place] % (Auto) Eos % (Auto) Baso % (Auto) Lymph # (Auto) [place] # (Auto) Eos # (Auto) Baso # (Auto) Abs Immat Gran (auto) Absolute Neuts (auto) Absolute Nucleated RBC Nucleated RBC % % Immature Plt Fraction PT INR APTT Puncture Site ABG pH ABG pCO2 ABG pO2 ABG PO2/FiO2 Ratio ABG HCO3 ABG O2 Saturation ABG O2 Content ABG Base Excess A-a Gradient Oxyhemoglobin Carboxyhemoglobin Methemoglobin Reduced Hemoglobin Total Hemoglobin O2 Delivery Device O2 Liters/Min Minute Volume Vent Rate Vent Mode FiO2 Tidal Volume PEEP Peak Inspir Pressure Pressure Support Sodium Potassium Chloride Carbon Dioxide Anion Gap BUN Creatinine Estim Creat Clear Calc Estimated GFR Glucose POC Capillary Glucose 157 H Hemoglobin A1c Lactic Acid Calcium Phosphorus Magnesium Total Bilirubin AST ALT Alkaline Phosphatase Total Creatine Kinase Troponin I NT-Pro-B Natriuret Pep Total Protein Albumin TSH (Reflex) Urine Eosinophils None seen U Random Total Protein 178 Ur Random Sodium 43 Ur Random Urea 271 Urine Creatinine 234.0 Protein/Creat Ratio 2 0.76 H Random Vancomycin Hepatitis A Ab Total Hep Bs Antigen Hep Bs Antibody Hep B Core Total Ab Hepatitis C Ab Screen Quality VTE Prophylaxis VTE prophylaxis: mechanical ordered
--- NOTE | 2025-10-05 14:04 | P.PNIM_ITS ---
Progress Note: A&P Assessment and Plan (1) Acute respiratory failure: Code(s): J96.00 - Acute respiratory failure, unspecified whether with hypoxia or hypercapnia Status: Acute Assessment and Plan: 10/04: Patient presented the ED via EMS with complains of generalized weakness, fevers, shortness of breath and fever. When EMS arrived to his house he was found on the ground, unable to get up off the floor. Patient's O2 sats were in the 80s on room air. Patient was placed on supplemental oxygen. In the ED patient was awake, alert, oriented was able to answer questions. O2 sats were improved but he was hypotensive, once he was given IV fluids per sepsis protocol he was more short of breath and was intubated -10/04: Intubated in the ER for impending respiratory failure likely related to CHF Vent management per ICU (2) Septic shock: Code(s): A41.9 - Sepsis, unspecified organism; R65.21 - Severe sepsis with septic shock Status: Acute Assessment and Plan: Patient with hypotension, likely related to pneumonia, possible lower abdomen cellulitis as seen on the CT scan. Could be related to heart failure -10/04: patient received 3.5 L IV fluid bolus in the ER, despite which his blood pressures remain low, is right-sided IJ central line was inserted, patient started on Levophed -upon arrival to the ICU patient was on Levophed 20 mcg/min with systolic blood pressures in the 80s, I advised the bedside RN to go up on the Levophed and ordered vasopressin -will maintain MAP > 65 mmHg or SBP > 100 mmHg -patient had does have a provided pulse pressure -will obtain troponin -will repeat echocardiogram echocardiogram -lactic acid was 5.9 on admission, repeat was 4.2 -will trend lactic acid -patient was given 1 dose of ceftriaxone and azithromycin in the ER -given history of alcoholism, cocaine abuse started on cefepime, vancomycin and azithromycin (10/04) -10/04: Blood cultures have been obtained -10/04: Urine cultures obtained and pain -10/04: sputum culture obtained and pending -10/04: Obtain urine Legionella and strep pneumo antigen, pending -chest x-ray shows Pulmonary vascular congestion, hold additional IV fluid -receiving albumin for intravascular volume expansion 10/05: Patient has multi-system organ failure, 01/16/2025: Echocardiogram Summary 1. Left ventricular chamber dimension is normal. 2. Left ventricular systolic function is normal, estimated at 65-70%. 3. There is mildly increased left ventricular wall thickness. 4. The left ventricular diastolic function is grade I diastolic dysfunction. 5. Right ventricular systolic function is normal. 6. Left atrial chamber dimension is moderately enlarged. 7. Right atrial chamber dimension is moderately enlarged. 8. There is moderate aortic valve calcification. 9. There is moderate to severe aortic valve stenosis with a peak velocity of 407 cm/s, mean gradient of 43 mmHg, and aortic valve area of 1.2 cm2. 10. There is mild aortic valve regurgitation. 11. There is mild to moderate tricuspid valve regurgitation. 12. Pulmonary hypertension, estimated pulmonary arterial systolic pressure is 48 mmHg. (3) MARIO (acute kidney injury): Code(s): N17.9 - Acute kidney failure, unspecified Status: Acute Assessment and Plan: Acute kidney injury, creatinine 1.83 on admission, (1.87-2.19 in January of 2025, prior to that patient's creatinine was 1.10-1.20 in March of 2023) -patient received 3.5 L of IV fluid bolus in the ER -will continue to monitor renal function, electrolytes and urine output -albumin for intravascular volume expansion, hold additional IV fluids due to pulmonary vascular congestion on chest x-ray -10/05: Worsening creatinine, decreased urine output, likely related to rhabdomyolysis, CK levels trending down, continue maintenance IV fluid -nephrology consult Renal ultrasound with no hydronephrosis (4) Acute CHF: Code(s): I50.9 - Heart failure, unspecified Status: Acute Assessment and Plan: Patient has history of CHF, he does take furosemide at home, echocardiogram as above -chest x-ray shows pulmonary vascular congestion after receiving IV fluid -repeat echo has been ordered (5) DM2 (diabetes mellitus, type 2): Code(s): E11.9 - Type 2 diabetes mellitus without complications Status: Acute Assessment and Plan: Accu-Cheks and sliding scale insulin -patient does take Lantus at home, will restart if needed (6) Thrombocytopenia: Code(s): D69.6 - Thrombocytopenia, unspecified Status: Acute Assessment and Plan: Chronic thrombocytopenia could be related to cirrhosis, alcohol use -patient was evaluated by Oncology on 01/28/2023 -continue to monitor, -will transfuse as needed Ultrasound with splenomegaly and ascites noted (7) Cirrhosis: Code(s): K74.60 - Unspecified cirrhosis of liver Status: Acute Assessment and Plan: CT scan of the abdomen and pelvis showed spleen enlargement and cirrhosis -patient also has anasarca -elevated bilirubin ultrasound with splenomegaly and ascites noted (8) Anasarca: Code(s): R60.1 - Generalized edema Status: Acute Assessment and Plan: Likely related to cirrhosis (9) GI bleed: Code(s): K92.2 - Gastrointestinal hemorrhage, unspecified Status: Acute Assessment and Plan: OG tube has blood draining, could be related to trauma secondary to OG tube placement or variceal bleed or gastritis as patient has cirrhosis -Protonix IV q.12 hours -appreciate GI evaluation, no more GI bleeding noted from the OG tube -patient does have cirrhosis, MELD score of 26 (10) Anemia: Code(s): D64.9 - Anemia, unspecified Status: Acute Assessment and Plan: Patient also has anemia with hemoglobin of 10.7 (which is close to his baseline) -will continue to monitor, transfuse for hemoglobin < 7.0 (11) Aortic stenosis: Code(s): I35.0 - Nonrheumatic aortic (valve) stenosis Status: Acute Assessment and Plan: Moderate to severe aortic valve stenosis with mean gradient of 43 mmHg and aortic valve area of 1.2 cm2 -caution with IV fluids -repeat echocardiogram has been ordered (12) NSTEMI (non-ST elevated myocardial infarction): Code(s): I21.4 - Non-ST elevation (NSTEMI) myocardial infarction Status: Acute Assessment and Plan: 10/04: Troponins were 4.720, 8.720 and 13.00. -cardiology was consulted, recommended starting heparin infusion -10/05: Heparin infusion was discontinued as this was thought to be secondary to type 2 myocardial infarction secondary to anemia, hypotension, respiratory failure and septic shock. Plan DVT prophylaxis: SCDs, no chemoprophylaxis due to blood in OG tube likely related to GI bleeding and thrombocytopenia Stress ulcer prophylaxis: Protonix IV q.12 hours Nutrition: NPO for now Code Status: Full code Subjective Date/time seen: 10/05/25 14:04 Interval history: HPI:65yo male with history of CKD, CHF, DM, BPH, and HTN who presents to the ED for SOB, weakness, and fever. EMS called a code sepsis from the household based on vital signs and physical exam. Patient was in respiratory distress and breathing heavy. His SpO2 was 89% on room air. He was found down on the ground reportedly altered and not able to get up. Patient on arrival to the ED was awake, alert and oriented answering questions. He was febrile, tachycardic, tachypneic, and hypoxic requiring supplemental oxygen for assistance. He became HoTN with BP 62/36. No specific complaints of chest pain, abdominal pain, nausea, vomiting, diarrhea. No injuries reported. He states he just does not feel well. No sick contacts at home. No recent hospitalizations per patient. Lactic was 5.9 -> 4.2. COVID, RSV and Influenza PCR was negative. WBC 16K with chronic thrombocytopenia. [place] metabolic acidosis. CKD noted and stable with Cr at 1.8. MRSA nasal swab negative. UA not consistent with UTI. UDS positive for cocaine and cannabinoids. EtOH level 23. CXR showing no acute cardiopulmonary findings but possibly pulmonary fibrosis. Head CT showing no acute intracranial findings. CT Ch/A/P showing interstitial pulmonary edema, small right pleural effusion, colonic hepatic flexure wall thickening consistent with colitis and/or malignancy and cirrhosis. Cannot exc lude superimposed pneumonitis or ILD. Patient's condition deteriorated. Central line was placed and was started on pressors. His respiratory condition deteriorated requiring intubation and mechanical ventilation. ABG 7.27/41/196 on mechanical ventilation. He was admitted to the ICU for further care. Graphic Production Artist was consulted. Patient sedated and unable to provide hx. No family in the room at this time. 09/27/2025 remains intubated and sedated. Events noted. Heparin drip was started on eventually was discontinued due to down trending H&H. at bedside and reviewed with her Review of Systems Review of Systems: ROS unobtainable: Yes unobtainable due to endotracheal tube Exam Narrative: General: Intubated, sedated, in no acute distress HEENT:? Pupils equal and reactive, sclera is icteric, ETT in place Neck:? Thick neck, right IJ central line in place Respiratory:? Coarse breath sounds bilaterally, decreased at bases, no wheezing Cardiac:? S1-S2 is normal, sinus tachycardia Abdomen:? Soft, nontender, nondistended, obese, hypoactive bowel sounds, Extremities:? Bilateral lower extremity pitting edema, dopplerable pedal pulses Neuro:? Patient is intubated, sedated, Skin:? Chronic venous stasis changes and chronic skin discoloration Psych:? Unable to assess at this time Objective Data Vital Signs Vital Signs: Vital Signs - 24 hr 10/04/25 14:28 10/04/25 15:00 10/04/25 15:28 Temperature 99.5 F Pulse Rate 105 H 104 H Respiratory Rate 22 H 22 H Blood Pressure 108/62 Pulse Oximetry 96 Oxygen Delivery Fraction of Inspired Oxygen 60 10/04/25 15:34 10/04/25 15:44 10/04/25 16:00 Temperature Pulse Rate 102 H 102 H 97 Respiratory Rate 22 H Blood Pressure 96/54 L Pulse Oximetry 97 Oxygen Delivery Mechanical Ventilation Fraction of Inspired Oxygen 60 10/04/25 16:00 10/04/25 16:00 10/04/25 16:00 Temperature Pulse Rate 97 97 97 Respiratory Rate 22 H 22 H Blood Pressure 96/54 L Pulse Oximetry Oxygen Delivery Fraction of Inspired Oxygen 10/04/25 16:00 10/04/25 16:00 10/04/25 16:00 Temperature 99.7 F H Pulse Rate 96 98 Respiratory Rate 22 H Blood Pressure 97/54 L Pulse Oximetry 98 98 Oxygen Delivery Mechanical Ventilation Fraction of Inspired Oxygen 60 10/04/25 16:09 10/04/25 17:00 10/04/25 17:03 Temperature 99.7 F H Pulse Rate 94 96 94 Respiratory Rate 22 H Blood Pressure 116/60 96/53 L Pulse Oximetry 97 Oxygen Delivery Fraction of Inspired Oxygen 10/04/25 17:41 10/04/25 18:00 10/04/25 18:00 Temperature 99.7 F H Pulse Rate 97 96 95 Respiratory Rate 22 H Blood Pressure 118/50 L Pulse Oximetry 96 96 Oxygen Delivery Mechanical Ventilation Fraction of Inspired Oxygen 50 10/04/25 18:00 10/04/25 18:00 10/04/25 18:00 Temperature Pulse Rate 95 96 96 Respiratory Rate 22 H Blood Pressure 118/50 L 118/50 L Pulse Oximetry Oxygen Delivery Fraction of Inspired Oxygen 10/04/25 19:00 10/04/25 19:26 10/04/25 20:00 Temperature 99.7 F H Pulse Rate 95 93 Respiratory Rate 22 H 22 H Blood Pressure 117/50 L Pulse Oximetry 96 Oxygen Delivery Fraction of Inspired Oxygen 50 10/04/25 20:00 10/04/25 20:00 10/04/25 20:00 Temperature Pulse Rate 93 93 93 Respiratory Rate 22 H Blood Pressure 127/51 L 127/51 L Pulse Oximetry Oxygen Delivery Fraction of Inspired Oxygen 10/04/25 20:00 10/04/25 20:00 10/04/25 20:00 Temperature 99.9 F H Pulse Rate 92 92 Respiratory Rate 22 H 22 H Blood Pressure 127/51 L Pulse Oximetry 96 96 Oxygen Delivery Mechanical Ventilation Fraction of Inspired Oxygen 10/04/25 20:06 10/04/25 20:13 10/04/25 20:16 Temperature Pulse Rate 92 90 91 Respiratory Rate 22 H 22 H Blood Pressure Pulse Oximetry 96 Oxygen Delivery Mechanical Ventilation Fraction of Inspired Oxygen 50 10/04/25 20:27 10/04/25 20:27 10/04/25 21:00 Temperature 100.0 F H Pulse Rate 94 97 97 Respiratory Rate 22 H 22 H 22 H Blood Pressure 122/53 L Pulse Oximetry 94 96 Oxygen Delivery Mechanical Ventilation Fraction of Inspired Oxygen 50 10/04/25 22:00 10/04/25 22:00 10/04/25 22:00 Temperature 100.1 F H Pulse Rate 89 89 89 Respiratory Rate 22 H Blood Pressure 116/51 L 116/51 L Pulse Oximetry 96 Oxygen Delivery Fraction of Inspired Oxygen 10/04/25 22:00 10/04/25 22:00 10/04/25 22:00 Temperature Pulse Rate 89 89 89 Respiratory Rate 22 H 22 H Blood Pressure 116/51 L Pulse Oximetry Oxygen Delivery Fraction of Inspired Oxygen 10/04/25 22:05 10/04/25 22:30 10/04/25 23:00 Temperature 100.0 F H Pulse Rate 96 89 89 Respiratory Rate 22 H Blood Pressure 124/53 L 120/47 L Pulse Oximetry 96 96 Oxygen Delivery Mechanical Ventilation Fraction of Inspired Oxygen 50 10/04/25 23:26 10/05/25 00:00 10/05/25 00:00 Temperature Pulse Rate 86 86 Respiratory Rate 22 H 22 H Blood Pressure Pulse Oximetry Oxygen Delivery Fraction of Inspired Oxygen 50 10/05/25 00:00 10/05/25 00:00 10/05/25 00:00 Temperature 100.0 F H Pulse Rate 86 86 86 Respiratory Rate 22 H Blood Pressure 120/51 L 120/51 L 120/51 L Pulse Oximetry 97 Oxygen Delivery Fraction of Inspired Oxygen 10/05/25 00:00 10/05/25 00:00 10/05/25 01:00 Temperature 99.9 F H Pulse Rate 86 85 Respiratory Rate 22 H 22 H Blood Pressure 118/60 Pulse Oximetry 97 97 Oxygen Delivery Mechanical Ventilation Fraction of Inspired Oxygen 10/05/25 02:00 10/05/25 02:00 10/05/25 02:00 Temperature Pulse Rate 86 86 86 Respiratory Rate 22 H 22 H Blood Pressure 124/53 L Pulse Oximetry Oxygen Delivery Fraction of Inspired Oxygen 10/05/25 02:00 10/05/25 02:00 10/05/25 02:00 Temperature 99.8 F H Pulse Rate 86 86 86 Respiratory Rate 22 H Blood Pressure 124/53 L 124/53 L Pulse Oximetry 97 Oxygen Delivery Fraction of Inspired Oxygen 10/05/25 02:03 10/05/25 02:07 10/05/25 02:12 Temperature Pulse Rate 86 86 85 Respiratory Rate 22 H 22 H Blood Pressure Pulse Oximetry 97 Oxygen Delivery Mechanical Ventilation Fraction of Inspired Oxygen 50 10/05/25 03:00 10/05/25 03:00 10/05/25 04:00 Temperature 99.6 F 99.4 F Pulse Rate 84 84 Respiratory Rate 22 H 22 H Blood Pressure 116/50 L 119/52 L Pulse Oximetry 97 97 Oxygen Delivery Fraction of Inspired Oxygen 50 10/05/25 04:00 10/05/25 04:00 10/05/25 04:00 Temperature Pulse Rate 84 84 84 Respiratory Rate 22 H 22 H Blood Pressure 119/52 L Pulse Oximetry Oxygen Delivery Fraction of Inspired Oxygen 10/05/25 04:00 10/05/25 04:00 10/05/25 04:00 Temperature Pulse Rate 84 84 Respiratory Rate 22 H Blood Pressure 119/52 L Pulse Oximetry 97 Oxygen Delivery Mechanical Ventilation Fraction of Inspired Oxygen 10/05/25 04:15 10/05/25 05:00 10/05/25 05:40 Temperature 99.3 F Pulse Rate 84 82 84 Respiratory Rate 16 Blood Pressure 122/50 L 115/53 L 127/58 L Pulse Oximetry 98 Oxygen Delivery Fraction of Inspired Oxygen 10/05/25 05:59 10/05/25 06:00 10/05/25 06:00 Temperature Pulse Rate 83 80 80 Respiratory Rate 22 H Blood Pressure 112/45 L Pulse Oximetry 100 Oxygen Delivery Mechanical Ventilation Fraction of Inspired Oxygen 10/05/25 06:00 10/05/25 06:00 10/05/25 06:00 Temperature 99.0 F Pulse Rate 80 80 80 Respiratory Rate 22 H 22 H Blood Pressure 112/45 L 112/45 L Pulse Oximetry 100 Oxygen Delivery Fraction of Inspired Oxygen 10/05/25 06:00 10/05/25 06:08 10/05/25 07:00 Temperature 98.8 F Pulse Rate 80 80 81 Respiratory Rate 22 H 22 H Blood Pressure 126/53 L Pulse Oximetry 100 Oxygen Delivery Fraction of Inspired Oxygen 10/05/25 07:00 10/05/25 07:06 10/05/25 07:08 Temperature Pulse Rate 80 80 Respiratory Rate 22 H Blood Pressure 124/48 L Pulse Oximetry Oxygen Delivery Fraction of Inspired Oxygen 50 10/05/25 07:15 10/05/25 07:31 10/05/25 07:32 Temperature Pulse Rate 80 80 80 Respiratory Rate 22 H 22 H 22 H Blood Pressure Pulse Oximetry Oxygen Delivery Fraction of Inspired Oxygen 10/05/25 08:00 10/05/25 08:00 10/05/25 08:00 Temperature 98.7 F Pulse Rate 79 80 Respiratory Rate 22 H 22 H Blood Pressure 122/55 L Pulse Oximetry 100 98 Oxygen Delivery Mechanical Ventilation Fraction of Inspired Oxygen 50 10/05/25 08:00 10/05/25 08:00 10/05/25 08:00 Temperature Pulse Rate 79 79 79 Respiratory Rate 22 H 22 H Blood Pressure 122/55 L Pulse Oximetry Oxygen Delivery Fraction of Inspired Oxygen 10/05/25 08:00 10/05/25 08:26 10/05/25 08:26 Temperature Pulse Rate 79 81 81 Respiratory Rate 22 H 22 H Blood Pressure 122/55 L Pulse Oximetry Oxygen Delivery Fraction of Inspired Oxygen 10/05/25 08:50 10/05/25 09:00 10/05/25 10:00 Temperature 98.4 F 98.3 F Pulse Rate 81 81 80 Respiratory Rate 23 H 22 H Blood Pressure 122/57 L 126/54 L 121/49 L Pulse Oximetry 98 98 Oxygen Delivery Fraction of Inspired Oxygen 10/05/25 10:00 10/05/25 10:00 10/05/25 10:00 Temperature Pulse Rate 77 80 80 Respiratory Rate 20 20 Blood Pressure Pulse Oximetry Oxygen Delivery Fraction of Inspired Oxygen 10/05/25 10:00 10/05/25 10:00 10/05/25 11:00 Temperature 97.9 F Pulse Rate 80 80 85 Respiratory Rate 22 H Blood Pressure 121/49 L 121/49 L 116/54 L Pulse Oximetry 97 Oxygen Delivery Fraction of Inspired Oxygen 10/05/25 11:00 10/05/25 12:00 10/05/25 12:00 Temperature Pulse Rate 75 75 Respiratory Rate 22 H 22 H Blood Pressure Pulse Oximetry Oxygen Delivery Fraction of Inspired Oxygen 40 10/05/25 12:00 10/05/25 12:00 10/05/25 12:00 Temperature 97.4 F L Pulse Rate 75 75 Respiratory Rate 22 H 22 H Blood Pressure 110/53 L Pulse Oximetry 97 98 Oxygen Delivery Mechanical Ventilation Fraction of Inspired Oxygen 40 10/05/25 12:00 10/05/25 12:00 10/05/25 13:00 Temperature 97.6 F Pulse Rate 75 75 73 Respiratory Rate 22 H Blood Pressure 110/53 L 110/53 L 110/55 L Pulse Oximetry 97 Oxygen Delivery Fraction of Inspired Oxygen 10/05/25 13:25 Temperature Pulse Rate 74 Respiratory Rate 20 Blood Pressure Pulse Oximetry Oxygen Delivery Fraction of Inspired Oxygen Intake/Output Intake/Output: Intake & Output 10/02/25 10/03/25 10/04/25 10/05/25 23:59 23:59 23:59 23:59 Intake Total 3558.4 2468.9 Output Total 250 425 Balance 3308.4 2043.9 Meds/Results Medications: Active Medications Generic Name Dose Route Start Last Admin Trade Name Freq PRN Reason Stop Dose Admin Aspirin 81 mg 10/04/25 17:50 10/05/25 09:41 Aspirin 81 Mg Chewable Tablet PO 81 mg DAILY@0800 VIKA Administration Dextrose 12.5 gm 10/04/25 13:16 Dextrose 50% 25 Gm/50 Ml Syringe IV PUSH PRN PRN Hypoglycemia Protocol Glucagon 1 mg 10/04/25 13:16 Glucagon For Inj 1 Mg Vial IM PRN PRN Hypoglycemia Protocol Glucose 15 gm 10/04/25 13:16 Glucose Oral Gel 15 Gm Of Glucse In 37.5 Gm Tube PO PRN PRN Hypoglycemia Protocol Norepinephrine Bitartrate 8 mg in 250 mls @ 0 mls/hr 10/04/25 08:30 10/05/25 12:00 Levophed 8 Mg/D5w 250 Ml IV CONT 0 mcg/min .Q0M VIKA 0 mls/hr Protocol Titration 0 MCG/MIN Metronidazole 500 mg in 100 mls @ 100 mls/hr 10/04/25 17:00 10/05/25 11:09 Flagyl 500 Mg/Iso Soln 100 Ml IVPB Infused Q8H VIKA Infusion Albumin Human 100 mls @ 60 mls/hr 10/04/25 12:00 10/05/25 12:10 Albutein IVPB 60 mls/hr Q6HR VIKA Administration Vasopressin 100 units/ 100 mls @ 2.4 mls/hr 10/04/25 12:00 10/05/25 12:00 Dextrose IV CONT 0.04 units/min .[id number] VIKA 2.4 mls/hr Protocol Titration 0.04 UNITS/MIN Cefepime HCl 2 gm/ Sodium 50 mls @ 100 mls/hr 10/04/25 12:25 10/05/25 11:09 Chloride IVPB Infused Q12HR VIKA Infusion Azithromycin 250 mg in 250 mls @ 250 mls/hr 10/05/25 09:00 10/05/25 13:24 Zithromax IVPB Infused Q24H VIKA Infusion Dextrose 1,000 mls @ 100 mls/hr 10/04/25 13:16 Dextrose 5% 1,000 Ml IVPB PRN PRN Hypoglycemia Protocol Fentanyl Citrate 2,500 mcg in 250 mls @ 12.5 mls/hr 10/04/25 19:45 10/05/25 12:00 Fentanyl 2,500 Mcg/Ns 250 Ml IV CONT 125 mcg/hr .Q20H VIKA 12.5 mls/hr Protocol Titration 125 MCG/HR Midazolam HCl 100 mg in 100 mls @ 5 mls/hr 10/04/25 19:45 10/05/25 13:25 Versed 100 Mg/Ns 100 Ml IV CONT 5 mg/hr .Q20H VIKA 5 mls/hr Protocol Titration 5 MG/HR Insulin Aspart 3 - 6 units 10/04/25 18:00 10/05/25 12:10 Insulin Aspart (*Bkc) 100 Units/Ml SUB-Q Not Given Q6HR VIKA Protocol Ipratropium [place] 0.5 mg 10/04/25 14:00 10/05/25 07:46 Ipratropium Br 0.02% Inh Soln 0.5 Mg/2.5 Ml Vial INHALATION 0.5 mg Q6HRT VIKA Administration Levalbuterol HCl 0.63 mg 10/04/25 14:00 10/05/25 07:46 Levalbuterol Neb 1.25 Mg/3 Ml INHALATION 0.63 mg Q6HRT VIKA Administration Pantoprazole Sodium 40 mg 10/04/25 21:00 10/05/25 09:42 Pantoprazole Sodium Iv 40 Mg Vial IV PUSH 40 mg Q12HR VIKA Administration Perflutren Lipid Microsphere 0 ml 10/04/25 12:41 Perflutren Lipid Microspheres 1.5 Ml Vial Diluted To 10 Ml Total Volume IV PUSH 10/07/25 12:42 ONCE PRN adequate visualization Protocol Sodium Chloride 10 ml 10/04/25 14:00 10/05/25 07:12 Central Line Flush IV PUSH 10 ml Q8HR VIKA Administration Sodium Chloride 20 ml 10/04/25 09:27 Central Line Flush IV PUSH PRN PRN after blood draws Thiamine HCl 100 mg 10/05/25 09:00 10/05/25 09:59 Thiamine Hcl 200 Mg/2 Ml Vial IV PUSH 100 mg QAM VIKA Administration Vancomycin HCl 1 each 10/04/25 12:47 Vancomycin For Acute Kidney Injury IVPB PRN PRN Vancomycin Protocol Radiology Results: ITS Impressions Head CT 10/04/25 07:09 IMPRESSION: 1. No acute intracranial findings. Chest/Abdomen/Pelvis CT 10/04/25 07:26 IMPRESSION: CHEST- 1. Interstitial pulmonary edema and small right pleural effusion. 2. Superimposed pneumonitis or interstitial lung disease not excluded. ABDOMEN/PELVIS- 1. Colonic hepatic flexure wall thickening. Colitis and/or malignancy. 2. Additional findings as above. Chest X-Ray 10/05/25 07:50 Impression: 1: Cardiomegaly with persistent pulmonary edema. Renal Ultrasound 10/05/25 13:44 Impression: 1: Unremarkable renal ultrasound. No stones, masses or hydronephrosis. 2: Splenomegaly. 3: Ascites. Labs Labs: Laboratory Results - last 24 hr 10/04/25 10/04/25 10/04/25 14:14 14:17 15:59 WBC RBC Hgb 9.0 L Hct 28.4 L MCV MCH MCHC RDW Plt Count MPV Immature Gran % (Auto) Neut % (Auto) Lymph % (Auto) [place] % (Auto) Eos % (Auto) Baso % (Auto) Lymph # (Auto) [place] # (Auto) Eos # (Auto) Baso # (Auto) Abs Immat Gran (auto) Absolute Neuts (auto) Absolute Nucleated RBC Nucleated RBC % % Immature Plt Fraction PT INR APTT Puncture Site Left radial ABG pH 7.333 L ABG pCO2 44.7 ABG pO2 208.4 H ABG PO2/FiO2 Ratio 2.08 ABG HCO3 23.2 ABG O2 Saturation 99.3 ABG O2 Content 14.4 L ABG Base Excess -2.6 A-a Gradient 459.9 Oxyhemoglobin 98.6 Carboxyhemoglobin Methemoglobin Reduced Hemoglobin Total Hemoglobin 10.0 L O2 Delivery Device Ventilator O2 Liters/Min 0.0 Minute Volume Not Reportable Vent Rate 22 Vent Mode Cmv FiO2 100 Tidal Volume 500 PEEP 12 Peak Inspir Pressure Not Reportable Pressure Support 0 Sodium Potassium Chloride Carbon Dioxide Anion Gap BUN Creatinine Estim Creat Clear Calc Estimated GFR Glucose POC Capillary Glucose Hemoglobin A1c 5.9 H Lactic Acid Calcium Phosphorus Magnesium Total Bilirubin AST ALT Alkaline Phosphatase Total Creatine Kinase Troponin I 8.720 H* D Total Protein Albumin TSH (Reflex) 3.360 Urine Eosinophils U Random Total Protein Ur Random Sodium Ur Random Urea Urine Creatinine Protein/Creat Ratio 2 Random Vancomycin Hepatitis A Ab Total Cancelled Hep Bs Antigen Negative Hep Bs Antibody Negative Hep B Core Total Ab Cancelled Hepatitis C Ab Screen Negative 10/04/25 10/04/25 10/04/25 17:08 18:40 20:16 WBC 15.2 H RBC 2.44 L Hgb 8.4 L Hct 26.9 L MCV 110.2 H MCH 34.4 H MCHC 31.2 L RDW 15.4 H Plt Count 72 L MPV 9.9 Immature Gran % (Auto) 0.7 H Neut % (Auto) 86.3 H Lymph % (Auto) 5.5 L [place] % (Auto) 6.9 Eos % (Auto) 0.3 Baso % (Auto) 0.3 Lymph # (Auto) 0.84 L [place] # (Auto) 1.1 H Eos # (Auto) 0.1 Baso # (Auto) 0.1 Abs Immat Gran (auto) 0.10 H Absolute Neuts (auto) 13.1 H Absolute Nucleated RBC 0.000 Nucleated RBC % 0.0 % Immature Plt Fraction 2.0 PT INR APTT Puncture Site ABG pH ABG pCO2 ABG pO2 ABG PO2/FiO2 Ratio ABG HCO3 ABG O2 Saturation ABG O2 Content ABG Base Excess A-a Gradient Oxyhemoglobin Carboxyhemoglobin Methemoglobin Reduced Hemoglobin Total Hemoglobin O2 Delivery Device O2 Liters/Min Minute Volume Vent Rate Vent Mode FiO2 Tidal Volume PEEP Peak Inspir Pressure Pressure Support Sodium Potassium Chloride Carbon Dioxide Anion Gap BUN Creatinine Estim Creat Clear Calc Estimated GFR Glucose POC Capillary Glucose 145 H Hemoglobin A1c Lactic Acid Calcium Phosphorus Magnesium 1.6 Total Bilirubin AST ALT Alkaline Phosphatase Total Creatine Kinase Troponin I 13.000 H* D Total Protein Albumin TSH (Reflex) Urine Eosinophils U Random Total Protein Ur Random Sodium Ur Random Urea Urine Creatinine Protein/Creat Ratio 2 Random Vancomycin Hepatitis A Ab Total Hep Bs Antigen Hep Bs Antibody Hep B Core Total Ab Hepatitis C Ab Screen 10/04/25 10/04/25 10/04/25 20:20 21:41 23:59 WBC RBC Hgb 8.5 L Hct 27.0 L MCV MCH MCHC RDW Plt Count MPV Immature Gran % (Auto) Neut % (Auto) Lymph % (Auto) [place] % (Auto) Eos % (Auto) Baso % (Auto) Lymph # (Auto) [place] # (Auto) Eos # (Auto) Baso # (Auto) Abs Immat Gran (auto) Absolute Neuts (auto) Absolute Nucleated RBC Nucleated RBC % % Immature Plt Fraction PT 19.1 H INR 1.6 APTT 39.1 H Puncture Site ABG pH ABG pCO2 ABG pO2 ABG PO2/FiO2 Ratio ABG HCO3 ABG O2 Saturation ABG O2 Content ABG Base Excess A-a Gradient Oxyhemoglobin Carboxyhemoglobin Methemoglobin Reduced Hemoglobin Total Hemoglobin O2 Delivery Device O2 Liters/Min Minute Volume Vent Rate Vent Mode FiO2 Tidal Volume PEEP Peak Inspir Pressure Pressure Support Sodium Potassium Chloride Carbon Dioxide Anion Gap BUN Creatinine Estim Creat Clear Calc Estimated GFR Glucose POC Capillary Glucose 146 H Hemoglobin A1c Lactic Acid Calcium Phosphorus Magnesium Total Bilirubin AST ALT Alkaline Phosphatase Total Creatine Kinase Troponin I Total Protein Albumin TSH (Reflex) Urine Eosinophils U Random Total Protein Ur Random Sodium Ur Random Urea Urine Creatinine Protein/Creat Ratio 2 Random Vancomycin Hepatitis A Ab Total Hep Bs Antigen Hep Bs Antibody Hep B Core Total Ab Hepatitis C Ab Screen 10/05/25 10/05/25 10/05/25 03:39 05:40 07:34 WBC 10.2 H RBC 2.29 L Hgb 7.9 L Hct 25.0 L MCV 109.2 H MCH 34.5 H MCHC 31.6 L RDW 15.2 H Plt Count 63 L MPV 9.6 Immature Gran % (Auto) 0.5 Neut % (Auto) 78.3 H Lymph % (Auto) 10.6 L [place] % (Auto) 9.2 H Eos % (Auto) 1.1 Baso % (Auto) 0.3 Lymph # (Auto) 1.08 [place] # (Auto) 0.9 H Eos # (Auto) 0.1 Baso # (Auto) 0.0 Abs Immat Gran (auto) 0.05 H Absolute Neuts (auto) 8.0 H Absolute Nucleated RBC 0.000 Nucleated RBC % 0.0 % Immature Plt Fraction 1.4 PT 19.4 H INR 1.7 APTT 72.4 H Puncture Site Right radial ABG pH 7.408 ABG pCO2 39.4 ABG pO2 164.6 H ABG PO2/FiO2 Ratio 3.29 ABG HCO3 24.3 ABG O2 Saturation 99.1 ABG O2 Content 13.1 L ABG Base Excess -0.3 A-a Gradient 147.6 Oxyhemoglobin 98.2 Carboxyhemoglobin 0.8 Methemoglobin 0.3 Reduced Hemoglobin 0.7 Total Hemoglobin 9.2 L O2 Delivery Device Ventilator O2 Liters/Min Not Reportable Minute Volume Not Reportable Vent Rate 22 Vent Mode Cmv FiO2 50 Tidal Volume 500 PEEP 12 Peak Inspir Pressure Not Reportable Pressure Support Not Reportable Sodium 138 Potassium 5.0 Chloride 111 H Carbon Dioxide 24 Anion Gap 3 L BUN 38 H D Creatinine 2.87 H Estim Creat Clear Calc 39 Estimated GFR 22 L Glucose 138 H POC Capillary Glucose 146 H Hemoglobin A1c Lactic Acid 1.6 Calcium 8.0 L Phosphorus 4.7 H Magnesium 1.9 Total Bilirubin 3.5 H AST 122 H ALT 26 Alkaline Phosphatase 107 Total Creatine Kinase 1007 H Troponin I Total Protein 7.3 Albumin 2.9 L TSH (Reflex) Urine Eosinophils U Random Total Protein Ur Random Sodium Ur Random Urea Urine Creatinine Protein/Creat Ratio 2 Random Vancomycin Hepatitis A Ab Total Hep Bs Antigen Hep Bs Antibody Hep B Core Total Ab Hepatitis C Ab Screen 10/05/25 10/05/25 10/05/25 08:22 10:37 11:16 WBC 8.7 RBC 2.25 L Hgb 7.8 L Hct 24.6 L MCV 109.3 H MCH 34.7 H MCHC 31.7 L RDW 15.4 H Plt Count 60 L MPV 9.8 Immature Gran % (Auto) Neut % (Auto) Lymph % (Auto) [place] % (Auto) Eos % (Auto) Baso % (Auto) Lymph # (Auto) [place] # (Auto) Eos # (Auto) Baso # (Auto) Abs Immat Gran (auto) Absolute Neuts (auto) Absolute Nucleated RBC Nucleated RBC % % Immature Plt Fraction 1.7 PT INR APTT 84.3 H Puncture Site ABG pH ABG pCO2 ABG pO2 ABG PO2/FiO2 Ratio ABG HCO3 ABG O2 Saturation ABG O2 Content ABG Base Excess A-a Gradient Oxyhemoglobin Carboxyhemoglobin Methemoglobin Reduced Hemoglobin Total Hemoglobin O2 Delivery Device O2 Liters/Min Minute Volume Vent Rate Vent Mode FiO2 Tidal Volume PEEP Peak Inspir Pressure Pressure Support Sodium Potassium Chloride Carbon Dioxide Anion Gap BUN Creatinine Estim Creat Clear Calc Estimated GFR Glucose POC Capillary Glucose 157 H Hemoglobin A1c Lactic Acid Calcium Phosphorus Magnesium Total Bilirubin AST ALT Alkaline Phosphatase Total Creatine Kinase Troponin I Total Protein Albumin TSH (Reflex) Urine Eosinophils U Random Total Protein Ur Random Sodium Ur Random Urea Urine Creatinine Protein/Creat Ratio 2 Random Vancomycin 10.8 Hepatitis A Ab Total Hep Bs Antigen Hep Bs Antibody Hep B Core Total Ab Hepatitis C Ab Screen 10/05/25 11:56 WBC RBC Hgb Hct MCV MCH MCHC RDW Plt Count MPV Immature Gran % (Auto) Neut % (Auto) Lymph % (Auto) [place] % (Auto) Eos % (Auto) Baso % (Auto) Lymph # (Auto) [place] # (Auto) Eos # (Auto) Baso # (Auto) Abs Immat Gran (auto) Absolute Neuts (auto) Absolute Nucleated RBC Nucleated RBC % % Immature Plt Fraction PT INR APTT Puncture Site ABG pH ABG pCO2 ABG pO2 ABG PO2/FiO2 Ratio ABG HCO3 ABG O2 Saturation ABG O2 Content ABG Base Excess A-a Gradient Oxyhemoglobin Carboxyhemoglobin Methemoglobin Reduced Hemoglobin Total Hemoglobin O2 Delivery Device O2 Liters/Min Minute Volume Vent Rate Vent Mode FiO2 Tidal Volume PEEP Peak Inspir Pressure Pressure Support Sodium Potassium Chloride Carbon Dioxide Anion Gap BUN Creatinine Estim Creat Clear Calc Estimated GFR Glucose POC Capillary Glucose Hemoglobin A1c Lactic Acid Calcium Phosphorus Magnesium Total Bilirubin AST ALT Alkaline Phosphatase Total Creatine Kinase Troponin I Total Protein Albumin TSH (Reflex) Urine Eosinophils None seen U Random Total Protein 178 Ur Random Sodium 43 Ur Random Urea 271 Urine Creatinine 234.0 Protein/Creat Ratio 2 0.76 H Random Vancomycin Hepatitis A Ab Total Hep Bs Antigen Hep Bs Antibody Hep B Core Total Ab Hepatitis C Ab Screen
[2025-10-06] VITALS (52 sets, daily range): BP systolic 94–126; BP diastolic 45–68; PULSE 73–101; RESP 22; TEMP 36.3–37.2; O2SAT 91–99
[2025-10-06] MEDS: ALBUMIN HUMAN 25% 25 GM/100 ML 100 ML IVPB ×4 (00:11→18:00)
[2025-10-06] MEDS: MIDAZOLAM 100MG/NS 100ML(*CRX) 100 MG/100 ML BAG IV CONT (01:00)
[2025-10-06] MEDS: VASOPRESSIN INJ 100 UNITS in DEXTROSE 5% 95 ML IV CONT (01:00)
[2025-10-06] MEDS: metroNIDAZOLE 500 MG/ISO 100ML 500 MG/100 ML BAG 100 MG IVPB ×3 (01:37→17:08)
[2025-10-06] MEDS: IPRATROPIUM BR 0.02% INH SOLN 0.5 MG/2.5 ML VIAL INHALATION ×4 (02:34→19:52)
[2025-10-06 04:07] LABS: Hep B Core Ab, Total Negative (Negative)
[2025-10-06 04:29] LABS: Hematocrit 24.3 % (42.0-52.0); Hemoglobin 7.6 g/dL (14.0-18.0); Immature Granulocyte Percent A 0.5 % (0-0.5); Immature Platelet Fraction Pct 2.0 % (0.9-11.2); Lymphocytes Absolute Auto 0.90 K/mm3 (0.9-3.2); Mean Corpuscular HGB Conc 31.3 g/dl (32-36); Mean Corpuscular Hemoglobin 34.2 pg (26-34); Mean Corpuscular Volume 109.5 fl (80-100); Nucleated Red Blood Cells Absolute Auto 0.000 K/mm3 (0.0-0.012); Nucleated Red Blood Cells Perc 0.0 % (0.0-0.2); Platelet Count Result 53 k/mm3 (150-375); Red Blood Count 2.22 M/mm3 (4.6-6.20); White Blood Count 6.3 K/mm3 (4.5-10.0)
[2025-10-06 04:39] LABS: INR 1.5; Prothrombin Time 18.1 Seconds (11.1-14.7)
[2025-10-06 04:40] LABS: Partial Thromboplastin Time 45.7 Seconds (22.3-36.8)
[2025-10-06 04:44] LABS: Alanine Aminotransferase 27 U/L (6-50); Albumin Level 3.1 g/dL (3.5-5.1); Alkaline Phosphatase 92 U/L (38-126); Anion Gap 6 mmol/L (4-12); Aspartate Amino Transferase 128 U/L (17-59); Bilirubin,Total 4.3 mg/dL (0.2-1.3); Blood Urea Nitrogen 47 mg/dL (9-20); Calcium 8.1 mg/dL (8.4-10.2); Carbon Dioxide 26 mmol/L (22-30); Chloride 108 mmol/L (98-107); Creatine Kinase 595 U/L (55-170); Estimated CRCL calculation 34 ml/min; Estimated Glomerular Filt Rate 19; Glucose 139 mg/dL (65-110); Magnesium 2.0 mg/dL (1.6-2.3); Potassium 4.5 mmol/L (3.4-5.0); Sodium 140 mmol/L (137-145); Total Protein 7.6 g/dL (6.3-8.2)
[2025-10-06 04:53] LABS: CRP 14.0 mg/dL (<1.0)
[2025-10-06 05:10] LABS: Alveolar/Arterial O2 Gradient 76.1 mmHg; Carboxyhemoglobin 0.9 % THb (0-2.0); Fractional Inspired Oxygen 30 %; HCO3 ABG 21.9 mEq/l (22.0-26.0); Methemoglobin ABG 0.0 %THb (0-1.5); Oxygen Content ABG 12.6 %vol (16.0-22.0); Oxygen Saturation ABG 97.6 % (95.0-100.0); PCO2 ABG 34.6 mmHg (35.0-45.0); PO2 ABG 97.1 mmHg (80.0-100.0); PO2 FiO2 Ratio Arterial Blood 3.24 %; Reduced Hemoglobin 2.8 %THb (0-5.0)
[2025-10-06 05:11] LABS: Site Drawn LEFT RADIAL
[2025-10-06 05:12] LABS: Arterial Blood Gas Tidal Volume 500 ml; Arterial Blood Gas Ventilator rate 22 /MIN; Modified Allen's Test Pass
[2025-10-06] MEDS: CENTRAL LINE FLUSH 10 ML IV PUSH ×3 (06:19→22:06)
[2025-10-06] MEDS: ASPIRIN 81 MG CHEWABLE TABLET PO (08:06)
[2025-10-06] MEDS: CEFEPIME 2 GM in SODIUM CHLORIDE 0.9% IV 50 ML 100 ML IVPB ×2 (08:08→20:09)
[2025-10-06] MEDS: THIAMINE HCL 200 MG/2 ML VIAL 100 MG IV PUSH (08:10)
[2025-10-06] MEDS: PANTOPRAZOLE SODIUM IV 40 MG VIAL IV PUSH ×2 (08:10→20:06)
[2025-10-06] MEDS: AZITHROMYCIN 250 MG/NS 250 ML 250 MG/250 ML BAG IVPB (09:55)
--- NOTE | 2025-10-06 12:02 | P.PNNP_ITS ---
Progress Note: A&P Assessment and Plan (1) Acute kidney injury: Code(s): N17.9 - Acute kidney failure, unspecified Status: Acute Assessment and Plan: * as noted by recent labs on 10/05 (creatinine up to 2.87mg/dL) * admission creatinine at baseline * now complicated by diminished urine output and volume overload * suspect multifactorial etiology: * hemodynamic instability/shock * infection/sepsis * hypoxia * cocaine use * CHF * rhabdomyolysis * NSTEMI * Pre renal factors due to shock and cirrhosis * other(?) * renal ultrasound shows normal kidneys and also note splenomegaly plus site * CK is down to 595; it never really was high enough to cause damage to the kidneys. * UA shows blood protein and red cells. He has had red cells for years. He probably should see a urologist down the line after he gets out of the hospital. * Both fractional excretion of sodium and fractional excretion of urea reflect a pre renal state. * Most likely renal failure is a reflection of several issues, as above. * he is still fairly sick. He is on 2 pressors. * His BUN creatinine are on the rise. * Electrolytes are good enough that he would not necessarily need dialysis. * His blood pressure is also low and he is on pressors, making dialysis somewhat risky * his platelet count is also very low making catheter placement somewhat risky. * So will hold off. Hopefully he will gain some improvement with treatment of his infection, maybe blood pressure will improve, and then kidney function will improve. * I agree he still remains at risk for [employer]/dialysis in the future * continue efforts to optimize hemodynamics * discussed with Dr. Mcknight (2) Stage 3b chronic kidney disease: Code(s): N18.32 - Chronic kidney disease, stage 3b Status: Chronic Assessment and Plan: * creatinine 1.87mg/dL ~ 8 months ago on hospital discharge * was fluctuating 1.8 - 2.2mg/dL in the context of IV diuresis in January 2025 * prior to that, creatinine was ~ 1.1 - 1.2 in March of 2023 * presumably due to combination of diuretic use for CHF, diabetes, and hypertension +/- vascular disease (3) Septic shock: Code(s): A41.9 - Sepsis, unspecified organism; R65.21 - Severe sepsis with septic shock Status: Acute Assessment and Plan: * presented with hypotension unresponsive to IVF resuscitation * s/p 3.5L IVFs with no improvement in blood pressure * s/p RIJ central line placement and initiation of vasopressor therapy * suspected source include pnuemonia, lower abdominal wall cellulitis, and/or heart failure * follow culture data (blood, sputum, and urine) * trend lactic acid * cultures negative so far * on Zithromax, cefepime, and vancomycin. * follow trend of hemodynamics * wean pressors as able (4) Acute respiratory failure: Code(s): J96.00 - Acute respiratory failure, unspecified whether with hypoxia or hypercapnia Status: Acute Assessment and Plan: * intubated in ER for impending respiratory failure * noted hypoxia * worsening SOB with IVF resuscitation * decline in respiratory status felt to be secondary to CHF +/- pnuemonia * on bronchodilator therapy * ventilator weaning as tolerated (5) Acute CHF: Code(s): I50.9 - Heart failure, unspecified Status: Acute Assessment and Plan: * known history * admission CXR with pulmonary vascular congestion * last Echo (01/16/25)noted: * ; previous Echo (01/16/25) noted: * left ventricular systolic function is normal, estimated at 65 - 70% * left ventricular diastolic function is grade I diastolic dysfunction * moderate to severe aortic valve stenosis with a peak velocity of 407 cm/s, mean gradient of 43 mmHg, and aortic valve area of 1.2 cm2 * mild aortic valve regurgitation * mild to moderate tricuspid valve regurgitation * pulmonary hypertension, estimated pulmonary arterial systolic pressure is 48 mmHg * repeat Echo shows normal EF, dilated LV, diastolic dysfunction, severe aortic stenosis, mild to moderate aortic valve regurgitation, mild to moderate tricuspid valve regurgitation, moderate pulmonary hypertension. * unable to diurese in the context of hypotension/shock (6) Anasarca: Code(s): R60.1 - Generalized edema Status: Acute Assessment and Plan: * likely a combination of CHF , MARIO, and liver cirrhosis/hypoalbuminemia * he received some fluids early on and also receive some albumin to try to mobilize some of the 3rd spaced fluid. * IVFs hold given this issue and pulmonary edema * unable to diuresis due to hemodynamic instability (7) Cirrhosis: Code(s): K74.60 - Unspecified cirrhosis of liver Status: Acute Assessment and Plan: * as noted by CT imaging: * noted spleen enlargement and cirrhosis * also with anasarca * trend bilirubin and LFTs * GI following (8) Anemia: Code(s): D64.9 - Anemia, unspecified Status: Acute Assessment and Plan: * noted with trend since admission * concern for GI loss given bleeding noted from OG tube * this appears to have resolved * suspect related to MARIO, CKD, and liver disease/cirrhosis * PRBC transfusion per protocol * Hemoglobin drifting downward * check another CBC tomorrow (9) Thrombocytopenia: Code(s): D69.6 - Thrombocytopenia, unspecified Status: Acute Assessment and Plan: * chronic issue * saw heme Onc in the past and this is felt to be related to cirrhosis and alcohol use * check another CBC tomorrow (10) DM2 (diabetes mellitus, type 2): Code(s): E11.9 - Type 2 diabetes mellitus without complications Status: Chronic Assessment and Plan: * follow accu-cheks * glycemic control per [employer] officer/hospitalist Subjective Date/time seen: 10/06/25 12:02 Interval history: Patient is resting comfortably in bed, sedated, on a ventilator. Review of Systems Cardiovascular: Cardiovascular: Reports no additional cardiovascular complaints Respiratory: Respiratory: Reports no additional respiratory complaints Gastrointestinal: Gastrointestinal: Reports no additional gastrointestinal complaints Genitourinary: Genitourinary: Reports no additional male genitourinary complaints Exam Narrative: WDWN Resting in bed, sedated, on the ventilator in NAD skin no rash head ncat lungs coarse upper airway noise cor reg no rub abd BS+ nontender and soft ext 2+ bilateral edema. Objective Data Vital Signs Vital Signs: Vital Signs - 24 hr 10/05/25 13:00 10/05/25 13:25 10/05/25 14:00 Temperature 97.6 F Pulse Rate 73 74 73 Respiratory Rate 22 H 20 Blood Pressure 110/55 L Pulse Oximetry 97 Oxygen Delivery Fraction of Inspired Oxygen 10/05/25 14:00 10/05/25 14:00 10/05/25 14:00 Temperature Pulse Rate 73 73 96 Respiratory Rate 22 H 22 H Blood Pressure 100/49 L Pulse Oximetry Oxygen Delivery Fraction of Inspired Oxygen 10/05/25 14:00 10/05/25 14:00 10/05/25 14:48 Temperature 97.6 F Pulse Rate 94 73 73 Respiratory Rate 22 H Blood Pressure 100/49 L 101/50 L Pulse Oximetry 97 97 Oxygen Delivery Mechanical Ventilation Fraction of Inspired Oxygen 35 10/05/25 14:48 10/05/25 15:00 10/05/25 15:00 Temperature 97.7 F Pulse Rate 73 80 Respiratory Rate 22 H 22 H Blood Pressure 100/53 L Pulse Oximetry 96 Oxygen Delivery Fraction of Inspired Oxygen 35 10/05/25 15:00 10/05/25 16:00 10/05/25 16:00 Temperature Pulse Rate 74 75 Respiratory Rate 22 H 22 H 22 H Blood Pressure Pulse Oximetry 96 Oxygen Delivery Mechanical Ventilation Fraction of Inspired Oxygen 35 10/05/25 16:00 10/05/25 16:00 10/05/25 16:00 Temperature Pulse Rate 75 75 75 Respiratory Rate 22 H Blood Pressure 96/49 L 96/49 L Pulse Oximetry Oxygen Delivery Fraction of Inspired Oxygen 10/05/25 16:00 10/05/25 16:00 10/05/25 17:00 Temperature 97.9 F 98.4 F Pulse Rate 76 76 80 Respiratory Rate 22 H 22 H Blood Pressure 100/51 L 107/44 L Pulse Oximetry 95 96 Oxygen Delivery Fraction of Inspired Oxygen 10/05/25 18:00 10/05/25 18:00 10/05/25 18:00 Temperature Pulse Rate 82 84 84 Respiratory Rate 22 H 22 H Blood Pressure 89/37 L Pulse Oximetry Oxygen Delivery Fraction of Inspired Oxygen 10/05/25 18:00 10/05/25 18:00 10/05/25 18:00 Temperature 98.2 F Pulse Rate 84 84 86 Respiratory Rate 22 H Blood Pressure 89/37 L 89/37 L Pulse Oximetry 97 Oxygen Delivery Fraction of Inspired Oxygen 10/05/25 18:32 10/05/25 19:00 10/05/25 19:00 Temperature 98.0 F Pulse Rate 86 Respiratory Rate 22 H Blood Pressure 105/49 L 107/50 L Pulse Oximetry 97 Oxygen Delivery Fraction of Inspired Oxygen 35 10/05/25 19:15 10/05/25 19:30 10/05/25 19:31 Temperature 98.0 F 98.0 F 98.0 F Pulse Rate 86 86 86 Respiratory Rate 25 H 22 H 22 H Blood Pressure 104/44 L 105/45 L Pulse Oximetry 97 97 97 Oxygen Delivery Fraction of Inspired Oxygen 10/05/25 20:00 10/05/25 20:00 10/05/25 20:00 Temperature 98.0 F Pulse Rate 84 84 84 Respiratory Rate 22 H Blood Pressure 105/47 L 105/47 L 105/47 L Pulse Oximetry 97 Oxygen Delivery Fraction of Inspired Oxygen 10/05/25 20:00 10/05/25 20:00 10/05/25 20:00 Temperature Pulse Rate 84 84 Respiratory Rate 22 H 22 H 22 H Blood Pressure Pulse Oximetry 97 Oxygen Delivery Mechanical Ventilation Fraction of Inspired Oxygen 35 10/05/25 20:00 10/05/25 20:15 10/05/25 20:15 Temperature Pulse Rate 84 85 Respiratory Rate Blood Pressure 117/51 L 117/51 L Pulse Oximetry Oxygen Delivery Fraction of Inspired Oxygen 10/05/25 20:48 10/05/25 20:49 10/05/25 21:00 Temperature 98.0 F Pulse Rate 84 84 85 Respiratory Rate 22 H 22 H Blood Pressure 111/54 L Pulse Oximetry 96 96 Oxygen Delivery Mechanical Ventilation Fraction of Inspired Oxygen 35 10/05/25 21:00 10/05/25 21:02 10/05/25 21:30 Temperature Pulse Rate 85 80 88 Respiratory Rate 22 H Blood Pressure 111/54 L 94/41 L Pulse Oximetry Oxygen Delivery Fraction of Inspired Oxygen 10/05/25 21:30 10/05/25 21:45 10/05/25 21:45 Temperature Pulse Rate 88 Respiratory Rate Blood Pressure 94/41 L 137/59 L 137/59 L Pulse Oximetry Oxygen Delivery Fraction of Inspired Oxygen 10/05/25 22:00 10/05/25 22:00 10/05/25 22:00 Temperature 98.0 F Pulse Rate 85 85 85 Respiratory Rate 22 H Blood Pressure 113/51 L 113/51 L Pulse Oximetry 96 Oxygen Delivery Fraction of Inspired Oxygen 10/05/25 22:00 10/05/25 22:00 10/05/25 22:00 Temperature Pulse Rate 85 85 85 Respiratory Rate 22 H 22 H Blood Pressure 113/51 L Pulse Oximetry Oxygen Delivery Fraction of Inspired Oxygen 10/05/25 23:00 10/05/25 23:00 10/05/25 23:20 Temperature 97.8 F Pulse Rate 80 81 Respiratory Rate 22 H Blood Pressure 124/56 L Pulse Oximetry 96 97 Oxygen Delivery Mechanical Ventilation Fraction of Inspired Oxygen 35 35 10/05/25 23:30 10/05/25 23:45 10/06/25 00:00 Temperature Pulse Rate 80 79 79 Respiratory Rate Blood Pressure 136/56 L 126/56 L 120/59 L Pulse Oximetry Oxygen Delivery Fraction of Inspired Oxygen 10/06/25 00:00 10/06/25 00:00 10/06/25 00:00 Temperature Pulse Rate 79 79 79 Respiratory Rate 22 H 22 H Blood Pressure 120/59 L Pulse Oximetry Oxygen Delivery Fraction of Inspired Oxygen 10/06/25 00:00 10/06/25 00:00 10/06/25 00:00 Temperature 97.7 F Pulse Rate 79 79 Respiratory Rate 22 H 22 H Blood Pressure 120/59 L Pulse Oximetry 97 97 Oxygen Delivery Mechanical Ventilation Fraction of Inspired Oxygen 35 10/06/25 00:15 10/06/25 00:30 10/06/25 01:00 Temperature Pulse Rate 78 76 74 Respiratory Rate Blood Pressure 122/56 L 116/52 L 115/57 L Pulse Oximetry Oxygen Delivery Fraction of Inspired Oxygen 10/06/25 01:00 10/06/25 01:00 10/06/25 01:00 Temperature Pulse Rate 74 74 74 Respiratory Rate 22 H 22 H Blood Pressure 115/57 L Pulse Oximetry Oxygen Delivery Fraction of Inspired Oxygen 10/06/25 01:00 10/06/25 02:00 10/06/25 02:00 Temperature 97.6 F Pulse Rate 74 75 75 Respiratory Rate 22 H 22 H Blood Pressure 115/57 L 120/59 L Pulse Oximetry 97 Oxygen Delivery Fraction of Inspired Oxygen 10/06/25 02:00 10/06/25 02:00 10/06/25 02:00 Temperature 97.6 F Pulse Rate 75 75 75 Respiratory Rate 22 H 22 H Blood Pressure 120/59 L 120/59 L Pulse Oximetry 97 Oxygen Delivery Fraction of Inspired Oxygen 10/06/25 02:00 10/06/25 02:15 10/06/25 02:37 Temperature Pulse Rate 75 74 73 Respiratory Rate 22 H Blood Pressure 106/50 L Pulse Oximetry Oxygen Delivery Fraction of Inspired Oxygen 10/06/25 02:39 10/06/25 03:00 10/06/25 03:00 Temperature 97.5 F L Pulse Rate 73 75 Respiratory Rate 22 H Blood Pressure 107/55 L Pulse Oximetry 97 96 Oxygen Delivery Mechanical Ventilation Fraction of Inspired Oxygen 35 30 10/06/25 04:00 10/06/25 04:00 10/06/25 04:00 Temperature 97.4 F L Pulse Rate 101 H 101 H 101 H Respiratory Rate 22 H 22 H Blood Pressure 126/65 126/65 Pulse Oximetry 96 Oxygen Delivery Fraction of Inspired Oxygen 10/06/25 04:00 10/06/25 04:00 10/06/25 04:00 Temperature Pulse Rate 101 H 101 H Respiratory Rate 22 H 22 H Blood Pressure 126/65 Pulse Oximetry 96 Oxygen Delivery Mechanical Ventilation Fraction of Inspired Oxygen 30 10/06/25 04:00 10/06/25 04:15 10/06/25 05:00 Temperature 97.3 F L Pulse Rate 101 H 99 88 Respiratory Rate 22 H Blood Pressure 94/51 L 99/56 L Pulse Oximetry 97 Oxygen Delivery Fraction of Inspired Oxygen 10/06/25 05:13 10/06/25 05:15 10/06/25 05:39 Temperature Pulse Rate 101 H 74 Respiratory Rate 22 H Blood Pressure 116/59 L Pulse Oximetry 99 Oxygen Delivery Mechanical Ventilation Fraction of Inspired Oxygen 30 10/06/25 06:00 10/06/25 06:00 10/06/25 06:00 Temperature Pulse Rate 74 74 74 Respiratory Rate 22 H Blood Pressure 103/52 L 103/52 L Pulse Oximetry Oxygen Delivery Fraction of Inspired Oxygen 10/06/25 06:00 10/06/25 06:00 10/06/25 06:00 Temperature 97.4 F L Pulse Rate 74 74 74 Respiratory Rate 22 H 22 H Blood Pressure 103/52 L Pulse Oximetry 93 Oxygen Delivery Fraction of Inspired Oxygen 10/06/25 06:50 10/06/25 07:00 10/06/25 07:00 Temperature 97.7 F Pulse Rate 75 74 Respiratory Rate 22 H 22 H Blood Pressure 97/52 L Pulse Oximetry 96 Oxygen Delivery Fraction of Inspired Oxygen 30 10/06/25 07:27 10/06/25 07:27 10/06/25 07:35 Temperature Pulse Rate 75 75 75 Respiratory Rate 22 H 22 H Blood Pressure Pulse Oximetry 96 Oxygen Delivery Mechanical Ventilation Fraction of Inspired Oxygen 30 10/06/25 07:35 10/06/25 08:00 10/06/25 08:00 Temperature 98.0 F Pulse Rate 77 78 78 Respiratory Rate 22 H 22 H 22 H Blood Pressure 98/49 L Pulse Oximetry 95 Oxygen Delivery Fraction of Inspired Oxygen 10/06/25 08:00 10/06/25 08:00 10/06/25 08:00 Temperature Pulse Rate 78 78 78 Respiratory Rate 22 H Blood Pressure 98/49 L 98/49 L Pulse Oximetry Oxygen Delivery Fraction of Inspired Oxygen 10/06/25 08:00 10/06/25 08:00 10/06/25 08:00 Temperature Pulse Rate 78 Respiratory Rate Blood Pressure Pulse Oximetry Oxygen Delivery Mechanical Ventilation Fraction of Inspired Oxygen 30 10/06/25 08:55 10/06/25 09:00 10/06/25 10:00 Temperature 98.2 F 98.5 F Pulse Rate 78 78 77 Respiratory Rate 22 H 22 H 22 H Blood Pressure 94/45 L 100/51 L Pulse Oximetry 95 95 Oxygen Delivery Fraction of Inspired Oxygen 10/06/25 10:00 10/06/25 10:00 10/06/25 10:00 Temperature Pulse Rate 77 77 77 Respiratory Rate 22 H Blood Pressure 100/51 L Pulse Oximetry Oxygen Delivery Fraction of Inspired Oxygen 10/06/25 10:00 10/06/25 10:00 10/06/25 10:24 Temperature Pulse Rate 77 77 77 Respiratory Rate 22 H Blood Pressure 100/51 L Pulse Oximetry 95 Oxygen Delivery Mechanical Ventilation Fraction of Inspired Oxygen 30 10/06/25 11:00 10/06/25 11:47 Temperature 98.7 F Pulse Rate 77 77 Respiratory Rate 22 H Blood Pressure 101/50 L 117/53 L Pulse Oximetry 95 Oxygen Delivery Fraction of Inspired Oxygen Intake/Output Intake/Output: Intake & Output 10/03/25 10/04/25 10/05/25 10/06/25 23:59 23:59 23:59 23:59 Intake Total 3675.5 3069.3 659.3 Output Total 250 700 450 Balance 3425.5 2369.3 209.3 Meds/Results Medications: Active Medications Generic Name Dose Route Start Last Admin Trade Name Freq PRN Reason Stop Dose Admin Aspirin 81 mg 10/04/25 17:50 10/06/25 08:06 Aspirin 81 Mg Chewable Tablet PO 81 mg DAILY@0800 VIKA Administration Dextrose 12.5 gm 11/27/25 13:16 Dextrose 50% 25 Gm/50 Ml Syringe IV PUSH PRN PRN Hypoglycemia Protocol Glucagon 1 mg 10/04/25 13:16 Glucagon For Inj 1 Mg Vial IM PRN PRN Hypoglycemia Protocol Glucose 15 gm 10/04/25 13:16 Glucose Oral Gel 15 Gm Of Glucse In 37.5 Gm Tube PO PRN PRN Hypoglycemia Protocol Norepinephrine Bitartrate 8 mg in 250 mls @ 3.75 mls/hr 10/04/25 08:30 10/06/25 11:47 Levophed 8 Mg/D5w 250 Ml IV CONT 2 mcg/min .Q24H VIKA 3.75 mls/hr Protocol Titration 2 MCG/MIN Metronidazole 500 mg in 100 mls @ 100 mls/hr 10/04/25 17:00 10/06/25 09:50 Flagyl 500 Mg/Iso Soln 100 Ml IVPB Infused Q8H VIKA Infusion Albumin Human 100 mls @ 60 mls/hr 10/04/25 12:00 10/06/25 11:37 Albutein IVPB 60 mls/hr Q6HR VIKA Administration Vasopressin 100 units/ 100 mls @ 2.4 mls/hr 10/04/25 12:00 10/06/25 10:00 Dextrose IV CONT 0.04 units/min .[id number] VIKA 2.4 mls/hr Protocol Titration 0.04 UNITS/MIN Cefepime HCl 2 gm/ Sodium 50 mls @ 100 mls/hr 10/04/25 12:25 10/06/25 08:38 Chloride IVPB Infused Q12HR VIKA Infusion Azithromycin 250 mg in 250 mls @ 250 mls/hr 10/05/25 09:00 10/06/25 09:55 Zithromax IVPB 250 mls/hr Q24H VIKA Administration Dextrose 1,000 mls @ 100 mls/hr 10/04/25 13:16 Dextrose 5% 1,000 Ml IVPB PRN PRN Hypoglycemia Protocol Fentanyl Citrate 2,500 mcg in 250 mls @ 2.5 mls/hr 10/04/25 19:45 10/06/25 10:00 Fentanyl 2,500 Mcg/Ns 250 Ml IV CONT 25 mcg/hr .Q72H VIKA 2.5 mls/hr Protocol Titration 25 MCG/HR Midazolam HCl 100 mg in 100 mls @ 1 mls/hr 10/04/25 19:45 10/06/25 10:00 Versed 100 Mg/Ns 100 Ml IV CONT 1 mg/hr .Q72H VIKA 1 mls/hr Protocol Titration 1 MG/HR Vancomycin HCl 2,000 mg in 500 mls @ 250 mls/hr 10/06/25 12:00 Vancomycin 2,000 Mg/Ns 500 Ml IVPB 10/06/25 13:59 ONCE ONE Insulin Aspart 3 - 6 units 10/04/25 18:00 10/06/25 11:37 Insulin Aspart (*Bkc) 100 Units/Ml SUB-Q Not Given Q6HR VIKA Protocol Ipratropium [place] 0.5 mg 10/04/25 14:00 10/06/25 07:29 Ipratropium Br 0.02% Inh Soln 0.5 Mg/2.5 Ml Vial INHALATION 0.5 mg Q6HRT VIKA Administration Levalbuterol HCl 0.63 mg 10/04/25 14:00 10/06/25 07:28 Levalbuterol Neb 1.25 Mg/3 Ml INHALATION 0.63 mg Q6HRT VIKA Administration Pantoprazole Sodium 40 mg 10/04/25 21:00 10/06/25 08:10 Pantoprazole Sodium Iv 40 Mg Vial IV PUSH 40 mg Q12HR VIKA Administration Perflutren Lipid Microsphere 0 ml 10/04/25 12:41 Perflutren Lipid Microspheres 1.5 Ml Vial Diluted To 10 Ml Total Volume IV PUSH 10/07/25 12:42 ONCE PRN adequate visualization Protocol Sodium Chloride 10 ml 10/04/25 14:00 10/06/25 11:38 Central Line Flush IV PUSH 10 ml Q8HR VIKA Administration Sodium Chloride 20 ml 10/04/25 09:27 Central Line Flush IV PUSH PRN PRN after blood draws Thiamine HCl 100 mg 10/05/25 09:00 10/06/25 08:10 Thiamine Hcl 200 Mg/2 Ml Vial IV PUSH 100 mg QAM VIKA Administration Vancomycin HCl 1 each 10/04/25 12:47 Vancomycin For Acute Kidney Injury IVPB PRN PRN Vancomycin Protocol Radiology Results: ITS Impressions Head CT 10/04/25 07:09 IMPRESSION: 1. No acute intracranial findings. Chest/Abdomen/Pelvis CT 10/04/25 07:26 IMPRESSION: CHEST- 1. Interstitial pulmonary edema and small right pleural effusion. 2. Superimposed pneumonitis or interstitial lung disease not excluded. ABDOMEN/PELVIS- 1. Colonic hepatic flexure wall thickening. Colitis and/or malignancy. 2. Additional findings as above. Renal Ultrasound 10/05/25 13:44 Impression: 1: Unremarkable renal ultrasound. No stones, masses or hydronephrosis. 2: Splenomegaly. 3: Ascites. Chest X-Ray 10/06/25 10:23 IMPRESSION: 1. No significant change. 2. Persistent interstitial pulmonary edema, chronic interstitial changes, and/or multifocal airspace disease. Labs Labs: Laboratory Results - last 24 hr 10/04/25 10/05/25 10/05/25 14:17 11:56 17:41 WBC RBC Hgb Hct MCV MCH MCHC RDW Plt Count MPV Immature Gran % (Auto) Neut % (Auto) Lymph % (Auto) [place] % (Auto) Eos % (Auto) Baso % (Auto) Lymph # (Auto) [place] # (Auto) Eos # (Auto) Baso # (Auto) Abs Immat Gran (auto) Absolute Neuts (auto) Absolute Nucleated RBC Nucleated RBC % % Immature Plt Fraction PT INR APTT Puncture Site ABG pH ABG pCO2 ABG pO2 ABG PO2/FiO2 Ratio ABG HCO3 ABG O2 Saturation ABG O2 Content ABG Base Excess A-a Gradient Oxyhemoglobin Carboxyhemoglobin Methemoglobin Reduced Hemoglobin Total Hemoglobin O2 Delivery Device O2 Liters/Min Minute Volume Vent Rate Vent Mode FiO2 Tidal Volume PEEP Peak Inspir Pressure Pressure Support Sodium Potassium Chloride Carbon Dioxide Anion Gap BUN Creatinine Estim Creat Clear Calc Estimated GFR Glucose POC Capillary Glucose 155 H Lactic Acid Calcium Phosphorus Magnesium Total Bilirubin AST ALT Alkaline Phosphatase Total Creatine Kinase C-Reactive Protein Total Protein Albumin Urine Eosinophils None seen U Random Total Protein 178 Ur Random Sodium 43 Ur Random Urea 271 Urine Creatinine 234.0 Protein/Creat Ratio 2 0.76 H Random Vancomycin Hep B Core Total Ab Negative 10/06/25 10/06/25 10/06/25 00:18 04:15 05:04 WBC 6.3 RBC 2.22 L Hgb 7.6 L Hct 24.3 L MCV 109.5 H MCH 34.2 H MCHC 31.3 L RDW 15.6 H Plt Count 53 L MPV 10.1 Immature Gran % (Auto) 0.5 Neut % (Auto) 69.4 Lymph % (Auto) 14.4 L [place] % (Auto) 12.2 H Eos % (Auto) 3.2 Baso % (Auto) 0.3 Lymph # (Auto) 0.90 [place] # (Auto) 0.8 H Eos # (Auto) 0.2 Baso # (Auto) 0.0 Abs Immat Gran (auto) 0.03 Absolute Neuts (auto) 4.3 Absolute Nucleated RBC 0.000 Nucleated RBC % 0.0 % Immature Plt Fraction 2.0 PT 18.1 H INR 1.5 APTT 45.7 H Puncture Site Left radial ABG pH 7.419 ABG pCO2 34.6 L ABG pO2 97.1 ABG PO2/FiO2 Ratio 3.24 ABG HCO3 21.9 L ABG O2 Saturation 97.6 ABG O2 Content 12.6 L ABG Base Excess -2.2 A-a Gradient 76.1 Oxyhemoglobin 96.3 Carboxyhemoglobin 0.9 Methemoglobin 0.0 Reduced Hemoglobin 2.8 Total Hemoglobin 9.2 L O2 Delivery Device Ventilator O2 Liters/Min Not Reportable Minute Volume Not Reportable Vent Rate 22 Vent Mode Cmv FiO2 30 Tidal Volume 500 PEEP 10 Peak Inspir Pressure Not Reportable Pressure Support Not Reportable Sodium 140 Potassium 4.5 Chloride 108 H Carbon Dioxide 26 Anion Gap 6 BUN 47 H Creatinine 3.29 H Estim Creat Clear Calc 34 Estimated GFR 19 L Glucose 139 H POC Capillary Glucose 148 H Lactic Acid 1.3 Calcium 8.1 L Phosphorus 4.7 H Magnesium 2.0 Total Bilirubin 4.3 H AST 128 H ALT 27 Alkaline Phosphatase 92 Total Creatine Kinase 595 H C-Reactive Protein 14.0 H Total Protein 7.6 Albumin 3.1 L Urine Eosinophils U Random Total Protein Ur Random Sodium Ur Random Urea Urine Creatinine Protein/Creat Ratio 2 Random Vancomycin Hep B Core Total Ab 10/06/25 10/06/25 10/06/25 05:44 10:09 11:30 WBC RBC Hgb Hct MCV MCH MCHC RDW Plt Count MPV Immature Gran % (Auto) Neut % (Auto) Lymph % (Auto) [place] % (Auto) Eos % (Auto) Baso % (Auto) Lymph # (Auto) [place] # (Auto) Eos # (Auto) Baso # (Auto) Abs Immat Gran (auto) Absolute Neuts (auto) Absolute Nucleated RBC Nucleated RBC % % Immature Plt Fraction PT INR APTT Puncture Site ABG pH ABG pCO2 ABG pO2 ABG PO2/FiO2 Ratio ABG HCO3 ABG O2 Saturation ABG O2 Content ABG Base Excess A-a Gradient Oxyhemoglobin Carboxyhemoglobin Methemoglobin Reduced Hemoglobin Total Hemoglobin O2 Delivery Device O2 Liters/Min Minute Volume Vent Rate Vent Mode FiO2 Tidal Volume PEEP Peak Inspir Pressure Pressure Support Sodium Potassium Chloride Carbon Dioxide Anion Gap BUN Creatinine Estim Creat Clear Calc Estimated GFR Glucose POC Capillary Glucose 128 H 145 H Lactic Acid Calcium Phosphorus Magnesium Total Bilirubin AST ALT Alkaline Phosphatase Total Creatine Kinase C-Reactive Protein Total Protein Albumin Urine Eosinophils U Random Total Protein Ur Random Sodium Ur Random Urea Urine Creatinine Protein/Creat Ratio 2 Random Vancomycin 17.4 Hep B Core Total Ab
[2025-10-06] MEDS: VANCOMYCIN 2,000 MG/NS 500 ML 2,000 MG/500 ML BAG 250 MG IVPB (12:26)
--- NOTE | 2025-10-06 12:39 | P.PNINT_ITS ---
Progress Note: A&P Assessment and Plan (1) Acute respiratory failure: Code(s): J96.00 - Acute respiratory failure, unspecified whether with hypoxia or hypercapnia Status: Acute Assessment and Plan: 10/04: Patient presented the ED via EMS with complains of generalized weakness, fevers, shortness of breath and fever. When EMS arrived to his house he was found on the ground, unable to get up off the floor. Patient's O2 sats were in the 80s on room air. Patient was placed on supplemental oxygen. In the ED patient was awake, alert, oriented was able to answer questions. O2 sats were improved but he was hypotensive, once he was given IV fluids per sepsis protocol he was more short of breath and was intubated -10/04: Intubated in the ER for impending respiratory failure likely related to CHF -currently CMV mode of ventilation,PEEP to 12, 50% FiO2, -chest x-ray and ABGs reviewed -wean FiO2 to maintain O2 sats > 92% -continue bronchodilators -sedated with fentanyl and Versed infusion, maintain RASS of 0 to -2 -daily SBT and SAT (2) Septic shock: Code(s): A41.9 - Sepsis, unspecified organism; R65.21 - Severe sepsis with septic shock Status: Acute Assessment and Plan: Patient with hypotension, likely related to pneumonia, possible lower abdomen cellulitis as seen on the CT scan. Could be related to heart failure -10/04: patient received 3.5 L IV fluid bolus in the ER, despite which his blood pressures remain low, is right-sided IJ central line was inserted, patient started on Levophed -on Levophed and vasopressin, will maintain MAP > 65 mmHg or SBP > 100 mmHg -on admission lactic acid was 5.9, repeat was 4.2. -lactic acid has normalized -patient was given 1 dose of ceftriaxone and azithromycin in the ER -continue cefepime, vancomycin and azithromycin (10/04) -10/04: Blood cultures have been obtained and pending -10/04: Urine cultures obtained and pending -10/04: sputum culture obtained and pending -10/04: Obtain urine Legionella and strep pneumo antigen, pending -chest x-ray shows Pulmonary vascular congestion, hold additional IV fluid -status post albumin for intravascular volume expansion 01/16/2025: Echocardiogram Summary 1. Left ventricular chamber dimension is normal. 2. Left ventricular systolic function is normal, estimated at 65-70%. 3. There is mildly increased left ventricular wall thickness. 4. The left ventricular diastolic function is grade I diastolic dysfunction. 5. Right ventricular systolic function is normal. 6. Left atrial chamber dimension is moderately enlarged. 7. Right atrial chamber dimension is moderately enlarged. 8. There is moderate aortic valve calcification. 9. There is moderate to severe aortic valve stenosis with a peak velocity of 407 cm/s, mean gradient of 43 mmHg, and aortic valve area of 1.2 cm2. 10. There is mild aortic valve regurgitation. 11. There is mild to moderate tricuspid valve regurgitation. 12. Pulmonary hypertension, estimated pulmonary arterial systolic pressure is 48 mmHg. (3) MARIO (acute kidney injury): Code(s): N17.9 - Acute kidney failure, unspecified Status: Acute Assessment and Plan: Acute kidney injury, creatinine 1.83 on admission, (1.87-2.19 in January of 2025, prior to that patient's creatinine was 1.10-1.20 in March of 2023) -patient received 3.5 L of IV fluid bolus in the ER -will continue to monitor renal function, electrolytes and urine output -will give albumin for intravascular volume expansion, hold additional IV fluids due to pulmonary vascular congestion on chest x-ray -10/06: Worsening creatinine, decreased urine output, likely related to rhabdomyolysis, CK levels trending down, off IV fluids as he is almost 6 L positive since admission -discuss with Nephrology, no indication for dialysis at this time, continue to monitor -10/05/2025: Renal ultrasound did not show any stones, masses or hydronephrosis. Showed splenomegaly, ascites (4) Acute CHF: Code(s): I50.9 - Heart failure, unspecified Status: Acute Assessment and Plan: Patient has history of CHF, he does take furosemide at home, echocardiogram as above -chest x-ray shows pulmonary vascular congestion after receiving IV fluid -echo as above, diastolic heart failure (5) DM2 (diabetes mellitus, type 2): Code(s): E11.9 - Type 2 diabetes mellitus without complications Status: Chronic Assessment and Plan: Accu-Cheks and sliding scale insulin -patient does take Lantus at home, will restart if needed (6) Thrombocytopenia: Code(s): D69.6 - Thrombocytopenia, unspecified Status: Acute Assessment and Plan: Chronic thrombocytopenia could be related to cirrhosis, alcohol use -patient was evaluated by Oncology on 01/28/2023 -continue to monitor, -will transfuse as needed (7) Cirrhosis: Code(s): K74.60 - Unspecified cirrhosis of liver Status: Acute Assessment and Plan: CT scan of the abdomen and pelvis showed spleen enlargement and cirrhosis -patient also has anasarca -elevated bilirubin -appreciate GI evaluation recommendation (8) Anasarca: Code(s): R60.1 - Generalized edema Status: Acute Assessment and Plan: Likely related to cirrhosis (9) GI bleed: Code(s): K92.2 - Gastrointestinal hemorrhage, unspecified Status: Acute Assessment and Plan: OG tube has blood draining, could be related to trauma secondary to OG tube p lacement or variceal bleed or gastritis as patient has cirrhosis -Protonix IV q.12 hours -appreciate GI evaluation, no more GI bleeding noted from the OG tube -patient does have cirrhosis, MELD score of 26 (10) Anemia: Code(s): D64.9 - Anemia, unspecified Status: Acute Assessment and Plan: Patient also has anemia with hemoglobin of 10.7 (which is close to his baseline) -will continue to monitor, hemoglobin gradually decreasing,, continue to monitor - transfuse for hemoglobin < 7.0 (11) Aortic stenosis: Code(s): I35.0 - Nonrheumatic aortic (valve) stenosis Status: Acute Assessment and Plan: Moderate to severe aortic valve stenosis with mean gradient of 43 mmHg and aortic valve area of 1.2 cm2 -will be cautious with IV fluids -repeat echocardiogram as above (12) NSTEMI (non-ST elevated myocardial infarction): Code(s): I21.4 - Non-ST elevation (NSTEMI) myocardial infarction Status: Acute Assessment and Plan: 10/04: Troponins were 4.720, 8.720 and 13.00. -cardiology was consulted, recommended starting heparin infusion -10/05: Heparin infusion was discontinued as this was thought to be secondary to type 2 myocardial infarction secondary to anemia, hypotension, respiratory failure and septic shock. -appreciate cardiology evaluation recommendation, no intervention at this time Plan DVT prophylaxis: SCDs, no chemoprophylaxis due to thrombocytopenia, anemia, patient also had bloody drainage from his OG tube on admission which has cleared up Stress ulcer prophylaxis: Protonix IV q.12 hours Nutrition: NPO for now Code Status: Full code Critical Care Time Spent: 35 minutes 10/05: Discussed with patient's Angelia, updated with patient's condition and plan of care. I discussed with her regarding main STEMI, aortic stenosis, acute respiratory failure with CHF, acute kidney injury with rhabdomyolysis, liver cirrhosis, thrombocytopenia. I have explained to her that this is multi-system organ failure which carries a high mortality risk. She is aware and wants to continue full support at this time as she states he has a lot of prayers going for him. Due to a high probability of clinically significant, life threatening deterioration, the patient required my highest level of preparedness to intervene emergently and I personally spent this critical care time directly and personally managing the patient. This critical care time included obtaining a history; examining the patient; pulse oximetry; ordering and review of studies; arranging urgent treatment with development of a management plan; evaluation of patient's response to treatment; frequent reassessment; and discussions with other providers. It was exclusive of separately billable procedures and treating other patients and teaching time. Please see Assessment and Plan section and the rest of the note for further information on patient assessment and treatment This dictation may have been done utilizing a voice recognition system. Attempts have been made to correct errors. However, there may be uncorrected grammatical, spelling, and recognitions errors present. Subjective Date/time seen: 10/06/25 12:39 Interval history: Reason for consult: Septic shock, pneumonia, pulmonary vascular congestion, colitis, acute kidney injury 10/06/2025: Patient seen and examined the ICU, remains intubated on CMV mode of ventilation, peep of 10, 30% FiO2. Sedated with fentanyl and Versed infusion, withdraws to pain in all extremities, does not open his eyes or follow simple commands. Urine output has been low but improving, worsening creatinine and with improved CK levels. Heparin drip has been off since 10/05/2025. Patient remains on Levophed 2 mcg/min and vasopressin 0.04 units/min Review of Systems Review of Systems: ROS unobtainable: Yes unobtainable due to endotracheal tube, unobtainable due to medical condition and unobtainable due to mental status Exam Narrative: General: Intubated, sedated, in no acute distress HEENT:? Pupils equal and reactive, sclera is icteric, ETT in place Neck:? Thick neck, right IJ central line in place Respiratory:? Coarse breath sounds bilaterally, decreased at bases, no wheezing Cardiac:? S1-S2 is normal, sinus tachycardia, 2/6 ejection systolic murmur in the aortic area Abdomen:? Soft, nontender, nondistended, obese, hypoactive bowel sounds, thickening of the skin on the lower part of the abdomen with no redness but warm Extremities:? Bilateral lower extremity pitting edema, dopplerable pedal pulses Neuro:? Patient is intubated, sedated, does not open his eyes or follows simple commands. Patient does withdraw to pain Skin:? Chronic venous stasis changes and chronic skin discoloration which is likely due to diabetes according the . Patient also has a callus on the ball of the right toe Psych:? Unable to assess at this time Objective Data Vital Signs Vital Signs: Vital Signs - 24 hr 10/05/25 13:00 10/05/25 13:25 10/05/25 14:00 Temperature 97.6 F Pulse Rate 73 74 73 Respiratory Rate 22 H 20 Blood Pressure 110/55 L Pulse Oximetry 97 Oxygen Delivery Fraction of Inspired Oxygen 10/05/25 14:00 10/05/25 14:00 10/05/25 14:00 Temperature Pulse Rate 73 73 96 Respiratory Rate 22 H 22 H Blood Pressure 100/49 L Pulse Oximetry Oxygen Delivery Fraction of Inspired Oxygen 10/05/25 14:00 10/05/25 14:00 10/05/25 14:48 Temperature 97.6 F Pulse Rate 94 73 73 Respiratory Rate 22 H Blood Pressure 100/49 L 101/50 L Pulse Oximetry 97 97 Oxygen Delivery Mechanical Ventilation Fraction of Inspired Oxygen 35 10/05/25 14:48 10/05/25 15:00 10/05/25 15:00 Temperature 97.7 F Pulse Rate 73 80 Respiratory Rate 22 H 22 H Blood Pressure 100/53 L Pulse Oximetry 96 Oxygen Delivery Fraction of Inspired Oxygen 35 10/05/25 15:00 10/05/25 16:00 10/05/25 16:00 Temperature Pulse Rate 74 75 Respiratory Rate 22 H 22 H 22 H Blood Pressure Pulse Oximetry 96 Oxygen Delivery Mechanical Ventilation Fraction of Inspired Oxygen 35 10/05/25 16:00 10/05/25 16:00 10/05/25 16:00 Temperature Pulse Rate 75 75 75 Respiratory Rate 22 H Blood Pressure 96/49 L 96/49 L Pulse Oximetry Oxygen Delivery Fraction of Inspired Oxygen 10/05/25 16:00 10/05/25 16:00 10/05/25 17:00 Temperature 97.9 F 98.4 F Pulse Rate 76 76 80 Respiratory Rate 22 H 22 H Blood Pressure 100/51 L 107/44 L Pulse Oximetry 95 96 Oxygen Delivery Fraction of Inspired Oxygen 10/05/25 18:00 10/05/25 18:00 10/05/25 18:00 Temperature Pulse Rate 82 84 84 Respiratory Rate 22 H 22 H Blood Pressure 89/37 L Pulse Oximetry Oxygen Delivery Fraction of Inspired Oxygen 10/05/25 18:00 10/05/25 18:00 10/05/25 18:00 Temperature 98.2 F Pulse Rate 84 84 86 Respiratory Rate 22 H Blood Pressure 89/37 L 89/37 L Pulse Oximetry 97 Oxygen Delivery Fraction of Inspired Oxygen 10/05/25 18:32 10/05/25 19:00 10/05/25 19:00 Temperature 98.0 F Pulse Rate 86 Respiratory Rate 22 H Blood Pressure 105/49 L 107/50 L Pulse Oximetry 97 Oxygen Delivery Fraction of Inspired Oxygen 35 10/05/25 19:15 10/05/25 19:30 10/05/25 19:31 Temperature 98.0 F 98.0 F 98.0 F Pulse Rate 86 86 86 Respiratory Rate 25 H 22 H 22 H Blood Pressure 104/44 L 105/45 L Pulse Oximetry 97 97 97 Oxygen Delivery Fraction of Inspired Oxygen 10/05/25 20:00 10/05/25 20:00 10/05/25 20:00 Temperature 98.0 F Pulse Rate 84 84 84 Respiratory Rate 22 H Blood Pressure 105/47 L 105/47 L 105/47 L Pulse Oximetry 97 Oxygen Delivery Fraction of Inspired Oxygen 10/05/25 20:00 10/05/25 20:00 10/05/25 20:00 Temperature Pulse Rate 84 84 Respiratory Rate 22 H 22 H 22 H Blood Pressure Pulse Oximetry 97 Oxygen Delivery Mechanical Ventilation Fraction of Inspired Oxygen 35 10/05/25 20:00 10/05/25 20:15 10/05/25 20:15 Temperature Pulse Rate 84 85 Respiratory Rate Blood Pressure 117/51 L 117/51 L Pulse Oximetry Oxygen Delivery Fraction of Inspired Oxygen 10/05/25 20:48 10/05/25 20:49 10/05/25 21:00 Temperature 98.0 F Pulse Rate 84 84 85 Respiratory Rate 22 H 22 H Blood Pressure 111/54 L Pulse Oximetry 96 96 Oxygen Delivery Mechanical Ventilation Fraction of Inspired Oxygen 35 10/05/25 21:00 10/05/25 21:02 10/05/25 21:30 Temperature Pulse Rate 85 80 88 Respiratory Rate 22 H Blood Pressure 111/54 L 94/41 L Pulse Oximetry Oxygen Delivery Fraction of Inspired Oxygen 10/05/25 21:30 10/05/25 21:45 10/05/25 21:45 Temperature Pulse Rate 88 Respiratory Rate Blood Pressure 94/41 L 137/59 L 137/59 L Pulse Oximetry Oxygen Delivery Fraction of Inspired Oxygen 10/05/25 22:00 10/05/25 22:00 10/05/25 22:00 Temperature 98.0 F Pulse Rate 85 85 85 Respiratory Rate 22 H Blood Pressure 113/51 L 113/51 L Pulse Oximetry 96 Oxygen Delivery Fraction of Inspired Oxygen 10/05/25 22:00 10/05/25 22:00 10/05/25 22:00 Temperature Pulse Rate 85 85 85 Respiratory Rate 22 H 22 H Blood Pressure 113/51 L Pulse Oximetry Oxygen Delivery Fraction of Inspired Oxygen 10/05/25 23:00 10/05/25 23:00 10/05/25 23:20 Temperature 97.8 F Pulse Rate 80 81 Respiratory Rate 22 H Blood Pressure 124/56 L Pulse Oximetry 96 97 Oxygen Delivery Mechanical Ventilation Fraction of Inspired Oxygen 35 35 10/05/25 23:30 10/05/25 23:45 10/06/25 00:00 Temperature Pulse Rate 80 79 79 Respiratory Rate Blood Pressure 136/56 L 126/56 L 120/59 L Pulse Oximetry Oxygen Delivery Fraction of Inspired Oxygen 10/06/25 00:00 10/06/25 00:00 10/06/25 00:00 Temperature Pulse Rate 79 79 79 Respiratory Rate 22 H 22 H Blood Pressure 120/59 L Pulse Oximetry Oxygen Delivery Fraction of Inspired Oxygen 10/06/25 00:00 10/06/25 00:00 10/06/25 00:00 Temperature 97.7 F Pulse Rate 79 79 Respiratory Rate 22 H 22 H Blood Pressure 120/59 L Pulse Oximetry 97 97 Oxygen Delivery Mechanical Ventilation Fraction of Inspired Oxygen 35 10/06/25 00:15 10/06/25 00:30 10/06/25 01:00 Temperature Pulse Rate 78 76 74 Respiratory Rate Blood Pressure 122/56 L 116/52 L 115/57 L Pulse Oximetry Oxygen Delivery Fraction of Inspired Oxygen 10/06/25 01:00 10/06/25 01:00 10/06/25 01:00 Temperature Pulse Rate 74 74 74 Respiratory Rate 22 H 22 H Blood Pressure 115/57 L Pulse Oximetry Oxygen Delivery Fraction of Inspired Oxygen 10/06/25 01:00 10/06/25 02:00 10/06/25 02:00 Temperature 97.6 F Pulse Rate 74 75 75 Respiratory Rate 22 H 22 H Blood Pressure 115/57 L 120/59 L Pulse Oximetry 97 Oxygen Delivery Fraction of Inspired Oxygen 10/06/25 02:00 10/06/25 02:00 10/06/25 02:00 Temperature 97.6 F Pulse Rate 75 75 75 Respiratory Rate 22 H 22 H Blood Pressure 120/59 L 120/59 L Pulse Oximetry 97 Oxygen Delivery Fraction of Inspired Oxygen 10/06/25 02:00 10/06/25 02:15 10/06/25 02:37 Temperature Pulse Rate 75 74 73 Respiratory Rate 22 H Blood Pressure 106/50 L Pulse Oximetry Oxygen Delivery Fraction of Inspired Oxygen 10/06/25 02:39 10/06/25 03:00 10/06/25 03:00 Temperature 97.5 F L Pulse Rate 73 75 Respiratory Rate 22 H Blood Pressure 107/55 L Pulse Oximetry 97 96 Oxygen Delivery Mechanical Ventilation Fraction of Inspired Oxygen 35 30 10/06/25 04:00 10/06/25 04:00 10/06/25 04:00 Temperature 97.4 F L Pulse Rate 101 H 101 H 101 H Respiratory Rate 22 H 22 H Blood Pressure 126/65 126/65 Pulse Oximetry 96 Oxygen Delivery Fraction of Inspired Oxygen 10/06/25 04:00 10/06/25 04:00 10/06/25 04:00 Temperature Pulse Rate 101 H 101 H Respiratory Rate 22 H 22 H Blood Pressure 126/65 Pulse Oximetry 96 Oxygen Delivery Mechanical Ventilation Fraction of Inspired Oxygen 30 10/06/25 04:00 10/06/25 04:15 10/06/25 05:00 Temperature 97.3 F L Pulse Rate 101 H 99 88 Respiratory Rate 22 H Blood Pressure 94/51 L 99/56 L Pulse Oximetry 97 Oxygen Delivery Fraction of Inspired Oxygen 10/06/25 05:13 10/06/25 05:15 10/06/25 05:39 Temperature Pulse Rate 101 H 74 Respiratory Rate 22 H Blood Pressure 116/59 L Pulse Oximetry 99 Oxygen Delivery Mechanical Ventilation Fraction of Inspired Oxygen 30 10/06/25 06:00 10/06/25 06:00 10/06/25 06:00 Temperature Pulse Rate 74 74 74 Respiratory Rate 22 H Blood Pressure 103/52 L 103/52 L Pulse Oximetry Oxygen Delivery Fraction of Inspired Oxygen 10/06/25 06:00 10/06/25 06:00 10/06/25 06:00 Temperature 97.4 F L Pulse Rate 74 74 74 Respiratory Rate 22 H 22 H Blood Pressure 103/52 L Pulse Oximetry 93 Oxygen Delivery Fraction of Inspired Oxygen 10/06/25 06:50 10/06/25 07:00 10/06/25 07:00 Temperature 97.7 F Pulse Rate 75 74 Respiratory Rate 22 H 22 H Blood Pressure 97/52 L Pulse Oximetry 96 Oxygen Delivery Fraction of Inspired Oxygen 30 10/06/25 07:27 10/06/25 07:27 10/06/25 07:35 Temperature Pulse Rate 75 75 75 Respiratory Rate 22 H 22 H Blood Pressure Pulse Oximetry 96 Oxygen Delivery Mechanical Ventilation Fraction of Inspired Oxygen 30 10/06/25 07:35 10/06/25 08:00 10/06/25 08:00 Temperature 98.0 F Pulse Rate 77 78 78 Respiratory Rate 22 H 22 H 22 H Blood Pressure 98/49 L Pulse Oximetry 95 Oxygen Delivery Fraction of Inspired Oxygen 10/06/25 08:00 10/06/25 08:00 10/06/25 08:00 Temperature Pulse Rate 78 78 78 Respiratory Rate 22 H Blood Pressure 98/49 L 98/49 L Pulse Oximetry Oxygen Delivery Fraction of Inspired Oxygen 10/06/25 08:00 10/06/25 08:00 10/06/25 08:00 Temperature Pulse Rate 78 Respiratory Rate Blood Pressure Pulse Oximetry Oxygen Delivery Mechanical Ventilation Fraction of Inspired Oxygen 30 10/06/25 08:55 10/06/25 09:00 10/06/25 10:00 Temperature 98.2 F 98.5 F Pulse Rate 78 78 77 Respiratory Rate 22 H 22 H 22 H Blood Pressure 94/45 L 100/51 L Pulse Oximetry 95 95 Oxygen Delivery Fraction of Inspired Oxygen 10/06/25 10:00 10/06/25 10:00 10/06/25 10:00 Temperature Pulse Rate 77 77 77 Respiratory Rate 22 H Blood Pressure 100/51 L Pulse Oximetry Oxygen Delivery Fraction of Inspired Oxygen 10/06/25 10:00 10/06/25 10:00 10/06/25 10:24 Temperature Pulse Rate 77 77 77 Respiratory Rate 22 H Blood Pressure 100/51 L Pulse Oximetry 95 Oxygen Delivery Mechanical Ventilation Fraction of Inspired Oxygen 30 10/06/25 11:00 10/06/25 11:47 10/06/25 12:00 Temperature 98.7 F Pulse Rate 77 77 77 Respiratory Rate 22 H 22 H Blood Pressure 101/50 L 117/53 L Pulse Oximetry 95 Oxygen Delivery Fraction of Inspired Oxygen 10/06/25 12:00 10/06/25 12:00 10/06/25 12:00 Temperature Pulse Rate 77 77 77 Respiratory Rate 22 H Blood Pressure 94/49 L 94/49 L Pulse Oximetry Oxygen Delivery Fraction of Inspired Oxygen Intake/Output Intake/Output: Intake & Output 10/03/25 10/04/25 10/05/25 10/06/25 23:59 23:59 23:59 23:59 Intake Total 3675.5 3069.3 921.9 Output Total 250 700 450 Balance 3425.5 2369.3 471.9 Meds/Results Medications: Active Medications Generic Name Dose Route Start Last Admin Trade Name Freq PRN Reason Stop Dose Admin Aspirin 81 mg 10/04/25 17:50 10/06/25 08:06 Aspirin 81 Mg Chewable Tablet PO 81 mg DAILY@0800 [facility] Administration Dextrose 12.5 gm 10/04/25 13:16 Dextrose 50% 25 Gm/50 Ml Syringe IV PUSH PRN PRN Hypoglycemia Protocol Glucagon 1 mg 10/04/25 13:16 Glucagon For Inj 1 Mg Vial IM PRN PRN Hypoglycemia Protocol Glucose 15 gm 10/04/25 13:16 Glucose Oral Gel 15 Gm Of Glucse In 37.5 Gm Tube PO PRN PRN Hypoglycemia Protocol Norepinephrine Bitartrate 8 mg in 250 mls @ 3.75 mls/hr 10/04/25 08:30 10/06/25 12:00 Levophed 8 Mg/D5w 250 Ml IV CONT 2 mcg/min .Q24H VIKA 3.75 mls/hr Protocol Titration 2 MCG/MIN Metronidazole 500 mg in 100 mls @ 100 mls/hr 10/04/25 17:00 10/06/25 09:50 Flagyl 500 Mg/Iso Soln 100 Ml IVPB Infused Q8H VIKA Infusion Albumin Human 100 mls @ 60 mls/hr 10/04/25 12:00 10/06/25 11:37 Albutein IVPB 60 mls/hr Q6HR VIKA Administration Vasopressin 100 units/ 100 mls @ 2.4 mls/hr 10/04/25 12:00 10/06/25 12:00 Dextrose IV CONT 0.04 units/min .[id number] VIKA 2.4 mls/hr Protocol Titration 0.04 UNITS/MIN Cefepime HCl 2 gm/ Sodium 50 mls @ 100 mls/hr 10/04/25 12:25 10/06/25 08:38 Chloride IVPB Infused Q12HR VIKA Infusion Azithromycin 250 mg in 250 mls @ 250 mls/hr 10/05/25 09:00 10/06/25 10:55 Zithromax IVPB Infused Q24H VIKA Infusion Dextrose 1,000 mls @ 100 mls/hr 10/04/25 13:16 Dextrose 5% 1,000 Ml IVPB PRN PRN Hypoglycemia Protocol Fentanyl Citrate 2,500 mcg in 250 mls @ 2.5 mls/hr 10/04/25 19:45 10/06/25 12:00 Fentanyl 2,500 Mcg/Ns 250 Ml IV CONT 25 mcg/hr .Q72H VIKA 2.5 mls/hr Protocol Titration 25 MCG/HR Midazolam HCl 100 mg in 100 mls @ 1 mls/hr 10/04/25 19:45 10/06/25 12:00 Versed 100 Mg/Ns 100 Ml IV CONT 1 mg/hr .Q72H VIKA 1 mls/hr Protocol Titration 1 MG/HR Vancomycin HCl 2,000 mg in 500 mls @ 250 mls/hr 10/06/25 12:00 10/06/25 12:26 Vancomycin 2,000 Mg/Ns 500 Ml IVPB 10/06/25 13:59 250 mls/hr ONCE ONE Administration Insulin Aspart 3 - 6 units 10/04/25 18:00 10/06/25 11:37 Insulin Aspart (*Bkc) 100 Units/Ml SUB-Q Not Given Q6HR VIKA Protocol Ipratropium [place] 0.5 mg 10/04/25 14:00 10/06/25 07:29 Ipratropium Br 0.02% Inh Soln 0.5 Mg/2.5 Ml Vial INHALATION 0.5 mg Q6HRT VIKA Administration Levalbuterol HCl 0.63 mg 10/04/25 14:00 10/06/25 07:28 Levalbuterol Neb 1.25 Mg/3 Ml INHALATION 0.63 mg Q6HRT VIKA Administration Pantoprazole Sodium 40 mg 10/04/25 21:00 10/06/25 08:10 Pantoprazole Sodium Iv 40 Mg Vial IV PUSH 40 mg Q12HR VIKA Administration Perflutren Lipid Microsphere 0 ml 10/04/25 12:41 Perflutren Lipid Microspheres 1.5 Ml Vial Diluted To 10 Ml Total Volume IV PUSH 10/07/25 12:42 ONCE PRN adequate visualization Protocol Sodium Chloride 10 ml 10/04/25 14:00 10/06/25 11:38 Central Line Flush IV PUSH 10 ml Q8HR VIKA Administration Sodium Chloride 20 ml 10/04/25 09:27 Central Line Flush IV PUSH PRN PRN after blood draws Thiamine HCl 100 mg 10/05/25 09:00 10/06/25 08:10 Thiamine Hcl 200 Mg/2 Ml Vial IV PUSH 100 mg QAM VIKA Administration Vancomycin HCl 1 each 10/04/25 12:47 Vancomycin For Acute Kidney Injury IVPB PRN PRN Vancomycin Protocol Radiology Results: ITS Impressions Head CT 10/04/25 07:09 IMPRESSION: 1. No acute intracranial findings. Chest/Abdomen/Pelvis CT 10/04/25 07:26 IMPRESSION: CHEST- 1. Interstitial pulmonary edema and small right pleural effusion. 2. Superimposed pneumonitis or interstitial lung disease not excluded. ABDOMEN/PELVIS- 1. Colonic hepatic flexure wall thickening. Colitis and/or malignancy. 2. Additional findings as above. Renal Ultrasound 10/05/25 13:44 Impression: 1: Unremarkable renal ultrasound. No stones, masses or hydronephrosis. 2: Splenomegaly. 3: Ascites. Chest X-Ray 10/06/25 10:23 IMPRESSION: 1. No significant change. 2. Persistent interstitial pulmonary edema, chronic interstitial changes, and/or multifocal airspace disease. Labs Labs: Laboratory Results - last 24 hr 10/04/25 10/05/25 10/05/25 14:17 11:56 17:41 WBC RBC Hgb Hct MCV MCH MCHC RDW Plt Count MPV Immature Gran % (Auto) Neut % (Auto) Lymph % (Auto) [place] % (Auto) Eos % (Auto) Baso % (Auto) Lymph # (Auto) [place] # (Auto) Eos # (Auto) Baso # (Auto) Abs Immat Gran (auto) Absolute Neuts (auto) Absolute Nucleated RBC Nucleated RBC % % Immature Plt Fraction PT INR APTT Puncture Site ABG pH ABG pCO2 ABG pO2 ABG PO2/FiO2 Ratio ABG HCO3 ABG O2 Saturation ABG O2 Content ABG Base Excess A-a Gradient Oxyhemoglobin Carboxyhemoglobin Methemoglobin Reduced Hemoglobin Total Hemoglobin O2 Delivery Device O2 Liters/Min Minute Volume Vent Rate Vent Mode FiO2 Tidal Volume PEEP Peak Inspir Pressure Pressure Support Sodium Potassium Chloride Carbon Dioxide Anion Gap BUN Creatinine Estim Creat Clear Calc Estimated GFR Glucose POC Capillary Glucose 155 H Lactic Acid Calcium Phosphorus Magnesium Total Bilirubin AST ALT Alkaline Phosphatase Total Creatine Kinase C-Reactive Protein Total Protein Albumin Urine Eosinophils None seen U Random Total Protein 178 Urine Creatinine 234.0 Protein/Creat Ratio 2 0.76 H Random Vancomycin Hep B Core Total Ab Negative 10/06/25 10/06/25 10/06/25 00:18 04:15 05:04 WBC 6.3 RBC 2.22 L Hgb 7.6 L Hct 24.3 L MCV 109.5 H MCH 34.2 H MCHC 31.3 L RDW 15.6 H Plt Count 53 L MPV 10.1 Immature Gran % (Auto) 0.5 Neut % (Auto) 69.4 Lymph % (Auto) 14.[address] [place] % (Auto) 12.2 H Eos % (Auto) 3.2 Baso % (Auto) 0.3 Lymph # (Auto) 0.90 [place] # (Auto) 0.8 H Eos # (Auto) 0.2 Baso # (Auto) 0.0 Abs Immat Gran (auto) 0.03 Absolute Neuts (auto) 4.3 Absolute Nucleated RBC 0.000 Nucleated RBC % 0.0 % Immature Plt Fraction 2.0 PT 18.1 H INR 1.5 APTT 45.7 H Puncture Site Left radial ABG pH 7.419 ABG pCO2 34.6 L ABG pO2 97.1 ABG PO2/FiO2 Ratio 3.24 ABG HCO3 21.9 L ABG O2 Saturation 97.6 ABG O2 Content 12.6 L ABG Base Excess -2.2 A-a Gradient 76.1 Oxyhemoglobin 96.3 Carboxyhemoglobin 0.9 Methemoglobin 0.0 Reduced Hemoglobin 2.8 Total Hemoglobin 9.2 L O2 Delivery Device Ventilator O2 Liters/Min Not Reportable Minute Volume Not Reportable Vent Rate 22 Vent Mode Cmv FiO2 30 Tidal Volume 500 PEEP 10 Peak Inspir Pressure Not Reportable Pressure Support Not Reportable Sodium 140 Potassium 4.5 Chloride 108 H Carbon Dioxide 26 Anion Gap 6 BUN 47 H Creatinine 3.29 H Estim Creat Clear Calc 34 Estimated GFR 19 L Glucose 139 H POC Capillary Glucose 148 H Lactic Acid 1.3 Calcium 8.1 L Phosphorus 4.7 H Magnesium 2.0 Total Bilirubin 4.3 H AST 128 H ALT 27 Alkaline Phosphatase 92 Total Creatine Kinase 595 H C-Reactive Protein 14.0 H Total Protein 7.6 Albumin 3.1 L Urine Eosinophils U Random Total Protein Urine Creatinine Protein/Creat Ratio 2 Random Vancomycin Hep B Core Total Ab 10/06/25 10/06/25 10/06/25 05:44 10:09 11:30 WBC RBC Hgb Hct MCV MCH MCHC RDW Plt Count MPV Immature Gran % (Auto) Neut % (Auto) Lymph % (Auto) [place] % (Auto) Eos % (Auto) Baso % (Auto) Lymph # (Auto) [place] # (Auto) Eos # (Auto) Baso # (Auto) Abs Immat Gran (auto) Absolute Neuts (auto) Absolute Nucleated RBC Nucleated RBC % % Immature Plt Fraction PT INR APTT Puncture Site ABG pH ABG pCO2 ABG pO2 ABG PO2/FiO2 Ratio ABG HCO3 ABG O2 Saturation ABG O2 Content ABG Base Excess A-a Gradient Oxyhemoglobin Carboxyhemoglobin Methemoglobin Reduced Hemoglobin Total Hemoglobin O2 Delivery Device O2 Liters/Min Minute Volume Vent Rate Vent Mode FiO2 Tidal Volume PEEP Peak Inspir Pressure Pressure Support Sodium Potassium Chloride Carbon Dioxide Anion Gap BUN Creatinine Estim Creat Clear Calc Estimated GFR Glucose POC Capillary Glucose 128 H 145 H Lactic Acid Calcium Phosphorus Magnesium Total Bilirubin AST ALT Alkaline Phosphatase Total Creatine Kinase C-Reactive Protein Total Protein Albumin Urine Eosinophils U Random Total Protein Urine Creatinine Protein/Creat Ratio 2 Random Vancomycin 17.4 Hep B Core Total Ab Quality VTE Prophylaxis VTE prophylaxis: mechanical ordered
--- NOTE | 2025-10-06 14:08 | PM.IMPN ---
Progress Note: A&P Assessment and Plan (1) Acute respiratory failure: Code(s): J96.00 - Acute respiratory failure, unspecified whether with hypoxia or hypercapnia Status: Acute Assessment and Plan: 10/04: Patient presented the ED via EMS with complains of generalized weakness, fevers, shortness of breath and fever. When EMS arrived to his house he was found on the ground, unable to get up off the floor. Patient's O2 sats were in the 80s on room air. Patient was placed on supplemental oxygen. In the ED patient was awake, alert, oriented was able to answer questions. O2 sats were improved but he was hypotensive, once he was given IV fluids per sepsis protocol he was more short of breath and was intubated -10/04: Intubated in the ER for impending respiratory failure likely related to CHF Vent management per ICU (2) Septic shock: Code(s): A41.9 - Sepsis, unspecified organism; R65.21 - Severe sepsis with septic shock Status: Acute Assessment and Plan: Patient with hypotension, likely related to pneumonia, possible lower abdomen cellulitis as seen on the CT scan. Could be related to heart failure -10/04: patient received 3.5 L IV fluid bolus in the ER, despite which his blood pressures remain low, is right-sided IJ central line was inserted, patient started on Levophed -upon arrival to the ICU patient was on Levophed 20 mcg/min with systolic blood pressures in the 80s, I advised the bedside RN to go up on the Levophed and ordered vasopressin -will maintain MAP > 65 mmHg or SBP > 100 mmHg -patient had does have a provided pulse pressure -will obtain troponin -will repeat echocardiogram echocardiogram -lactic acid was 5.9 on admission, repeat was 4.2 -will trend lactic acid -patient was given 1 dose of ceftriaxone and azithromycin in the ER -given history of alcoholism, cocaine abuse started on cefepime, vancomycin and azithromycin (10/04) -10/04: Blood cultures have been obtained -10/04: Urine cultures obtained and pain -10/04: sputum culture obtained and pending -10/04: Obtain urine Legionella and strep pneumo antigen, pending -chest x-ray shows Pulmonary vascular congestion, hold additional IV fluid -receiving albumin for intravascular volume expansion 10/05: Patient has multi-system organ failure, 01/16/2025: Echocardiogram Summary 1. Left ventricular chamber dimension is normal. 2. Left ventricular systolic function is normal, estimated at 65-70%. 3. There is mildly increased left ventricular wall thickness. 4. The left ventricular diastolic function is grade I diastolic dysfunction. 5. Right ventricular systolic function is normal. 6. Left atrial chamber dimension is moderately enlarged. 7. Right atrial chamber dimension is moderately enlarged. 8. There is moderate aortic valve calcification. 9. There is moderate to severe aortic valve stenosis with a peak velocity of 407 cm/s, mean gradient of 43 mmHg, and aortic valve area of 1.2 cm2. 10. There is mild aortic valve regurgitation. 11. There is mild to moderate tricuspid valve regurgitation. 12. Pulmonary hypertension, estimated pulmonary arterial systolic pressure is 48 mmHg. (3) MARIO (acute kidney injury): Code(s): N17.9 - Acute kidney failure, unspecified Status: Acute Assessment and Plan: Acute kidney injury, creatinine 1.83 on admission, (1.87-2.19 in January of 2025, prior to that patient's creatinine was 1.10-1.20 in March of 2023) -patient received 3.5 L of IV fluid bolus in the ER -will continue to monitor renal function, electrolytes and urine output -albumin for intravascular volume expansion, hold additional IV fluids due to pulmonary vascular congestion on chest x-ray -10/05: Worsening creatinine, decreased urine output, likely related to rhabdomyolysis, CK levels trending down, continue maintenance IV fluid -nephrology consult Renal ultrasound with no hydronephrosis Creatinine continues to incline. Nephrology following. (4) Acute CHF: Code(s): I50.9 - Heart failure, unspecified Status: Acute Assessment and Plan: Patient has history of CHF, he does take furosemide at home, echocardiogram as above -chest x-ray shows pulmonary vascular congestion after receiving IV fluid -repeat echo has been ordered (5) DM2 (diabetes mellitus, type 2): Code(s): E11.9 - Type 2 diabetes mellitus without complications Status: Chronic Assessment and Plan: Accu-Cheks and sliding scale insulin -patient does take Lantus at home, will restart if needed (6) Thrombocytopenia: Code(s): D69.6 - Thrombocytopenia, unspecified Status: Acute Assessment and Plan: Chronic thrombocytopenia could be related to cirrhosis, alcohol use -patient was evaluated by Oncology on 01/28/2023 -continue to monitor, -will transfuse as needed Ultrasound with splenomegaly and ascites noted (7) Cirrhosis: Code(s): K74.60 - Unspecified cirrhosis of liver Status: Acute Assessment and Plan: CT scan of the abdomen and pelvis showed spleen enlargement and cirrhosis -patient also has anasarca -elevated bilirubin ultrasound with splenomegaly and ascites noted (8) Anasarca: Code(s): R60.1 - Generalized edema Status: Acute Assessment and Plan: Likely related to cirrhosis (9) GI bleed: Code(s): K92.2 - Gastrointestinal hemorrhage, unspecified Status: Acute Assessment and Plan: OG tube has blood draining, could be related to trauma secondary to OG tube placement or variceal bleed or gastritis as patient has cirrhosis -Protonix IV q.12 hours -appreciate GI evaluation, no more GI bleeding noted from the OG tube -patient does have cirrhosis, MELD score of 26 (10) Anemia: Code(s): D64.9 - Anemia, unspecified Status: Acute Assessment and Plan: Patient also has anemia with hemoglobin of 10.7 (which is close to his baseline) -will continue to monitor, transfuse for hemoglobin < 7.0 (11) Aortic stenosis: Code(s): I35.0 - Nonrheumatic aortic (valve) stenosis Status: Acute Assessment and Plan: Moderate to severe aortic valve stenosis with mean gradient of 43 mmHg and aortic valve area of 1.2 cm2 -caution with IV fluids -repeat echocardiogram has been ordered (12) NSTEMI (non-ST elevated myocardial infarction): Code(s): I21.4 - Non-ST elevation (NSTEMI) myocardial infarction Status: Acute Assessment and Plan: 10/04: Troponins were 4.720, 8.720 and 13.00. -cardiology was consulted, recommended starting heparin infusion -10/05: Heparin infusion was discontinued as this was thought to be secondary to type 2 myocardial infarction secondary to anemia, hypotension, respiratory failure and septic shock. Plan DVT prophylaxis: SCDs, no chemoprophylaxis due to blood in OG tube likely related to GI bleeding and thrombocytopenia Stress ulcer prophylaxis: Protonix IV q.12 hours Nutrition: NPO for now Code Status: Full code Subjective Date/time seen: 10/06/25 14:08 Interval history: HPI:65yo male with history of CKD, CHF, DM, BPH, and HTN who presents to the ED for SOB, weakness, and fever. EMS called a code sepsis from the household based on vital signs and physical exam. Patient was in respiratory distress and breathing heavy. His SpO2 was 89% on room air. He was found down on the ground reportedly altered and not able to get up. Patient on arrival to the ED was awake, alert and oriented answering questions. He was febrile, tachycardic, tachypneic, and hypoxic requiring supplemental oxygen for assistance. He became HoTN with BP 62/36. No specific complaints of chest pain, abdominal pain, nausea, vomiting, diarrhea. No injuries reported. He states he just does not feel well. No sick contacts at home. No recent hospitalizations per patient. Lactic was 5.9 -> 4.2. COVID, RSV and Influenza PCR was negative. WBC 16K with chronic thrombocytopenia. [place] metabolic acidosis. CKD noted and stable with Cr at 1.8. MRSA nasal swab negative. UA not consistent with UTI. UDS positive for cocaine and cannabinoids. EtOH level 23. CXR showing no acute cardiopulmonary findings but possibly pulmonary fibrosis. Head CT showing no acute intracranial findings. CT Ch/A/P showing interstitial pulmonary edema, small right pleural effusion, colonic hepatic flexure wall thickening consistent with colitis and/or malignancy and cirrhosis. Cannot exclude superimposed pneumonitis or ILD. Patient's condition deteriorated. Central line was placed and was started on pressors. His respiratory condition deteriorated requiring intubation and mechanical ventilation. ABG 7.27/41/196 on mechanical ventilation. He was admitted to the ICU for further care. Motorboat Mechanic Inboard/Outboard was consulted. Patient sedated and unable to provide hx. No family in the room at this time. 10/05/2025 remains intubated and sedated. Events noted. Heparin drip was started on eventually was discontinued due to down trending H&H. at bedside and reviewed with her 10/06/2025 overnight events noted. Remains intubated and sedated. Labs reviewed. Review of Systems Review of Systems: ROS unobtainable: Yes unobtainable due to endotracheal tube Exam Narrative: General: Intubated, sedated, in no acute distress HEENT:? Pupils equal and reactive, sclera is icteric, ETT in place Neck:? Thick neck, right IJ central line in place Respiratory:? Coarse breath sounds bilaterally, decreased at bases, no wheezing Cardiac:? S1-S2 is normal, sinus tachycardia Abdomen:? Soft, nontender, nondistended, obese, hypoactive bowel sounds, Extremities:? Bilateral lower extremity pitting edema, dopplerable pedal pulses Neuro:? Patient is intubated, sedated, Skin:? Chronic venous stasis changes and chronic skin discoloration Psych:? Unable to assess at this time Objective Data Vital Signs Vital Signs: Vital Signs - 24 hr 10/05/25 14:48 10/05/25 14:48 10/05/25 15:00 Temperature Pulse Rate 73 73 Respiratory Rate 22 H Blood Pressure Pulse Oximetry 97 Oxygen Delivery Mechanical Ventilation Fraction of Inspired Oxygen 35 35 10/05/25 15:00 10/05/25 15:00 10/05/25 16:00 Temperature 97.7 F Pulse Rate 80 74 Respiratory Rate 22 H 22 H 22 H Blood Pressure 100/53 L Pulse Oximetry 96 96 Oxygen Delivery Mechanical Ventilation Fraction of Inspired Oxygen 35 10/05/25 16:00 10/05/25 16:00 10/05/25 16:00 Temperature Pulse Rate 75 75 75 Respiratory Rate 22 H 22 H Blood Pressure 96/49 L Pulse Oximetry Oxygen Delivery Fraction of Inspired Oxygen 10/05/25 16:00 10/05/25 16:00 10/05/25 16:00 Temperature 97.9 F Pulse Rate 75 76 76 Respiratory Rate 22 H Blood Pressure 96/49 L 100/51 L Pulse Oximetry 95 Oxygen Delivery Fraction of Inspired Oxygen 10/05/25 17:00 10/05/25 18:00 10/05/25 18:00 Temperature 98.4 F Pulse Rate 80 82 84 Respiratory Rate 22 H 22 H 22 H Blood Pressure 107/44 L Pulse Oximetry 96 Oxygen Delivery Fraction of Inspired Oxygen 10/05/25 18:00 10/05/25 18:00 10/05/25 18:00 Temperature 98.2 F Pulse Rate 84 84 84 Respiratory Rate 22 H Blood Pressure 89/37 L 89/37 L 89/37 L Pulse Oximetry 97 Oxygen Delivery Fraction of Inspired Oxygen 10/05/25 18:00 10/05/25 18:32 10/05/25 19:00 Temperature Pulse Rate 86 Respiratory Rate Blood Pressure 105/49 L Pulse Oximetry Oxygen Delivery Fraction of Inspired Oxygen 35 10/05/25 19:00 10/05/25 19:15 10/05/25 19:30 Temperature 98.0 F 98.0 F 98.0 F Pulse Rate 86 86 86 Respiratory Rate 22 H 25 H 22 H Blood Pressure 107/50 L 104/44 L 105/45 L Pulse Oximetry 97 97 97 Oxygen Delivery Fraction of Inspired Oxygen 10/05/25 19:31 10/05/25 20:00 10/05/25 20:00 Temperature 98.0 F 98.0 F Pulse Rate 86 84 84 Respiratory Rate 22 H 22 H Blood Pressure 105/47 L 105/47 L Pulse Oximetry 97 97 Oxygen Delivery Fraction of Inspired Oxygen 10/05/25 20:00 10/05/25 20:00 10/05/25 20:00 Temperature Pulse Rate 84 84 84 Respiratory Rate 22 H 22 H Blood Pressure 105/47 L Pulse Oximetry Oxygen Delivery Fraction of Inspired Oxygen 10/05/25 20:00 10/05/25 20:00 10/05/25 20:15 Temperature Pulse Rate 84 Respiratory Rate 22 H Blood Pressure 117/51 L Pulse Oximetry 97 Oxygen Delivery Mechanical Ventilation Fraction of Inspired Oxygen 35 10/05/25 20:15 10/05/25 20:48 10/05/25 20:49 Temperature Pulse Rate 85 84 84 Respiratory Rate 22 H Blood Pressure 117/51 L Pulse Oximetry 96 Oxygen Delivery Mechanical Ventilation Fraction of Inspired Oxygen 35 10/05/25 21:00 10/05/25 21:00 10/05/25 21:02 Temperature 98.0 F Pulse Rate 85 85 80 Respiratory Rate 22 H 22 H Blood Pressure 111/54 L 111/54 L Pulse Oximetry 96 Oxygen Delivery Fraction of Inspired Oxygen 10/05/25 21:30 10/05/25 21:30 10/05/25 21:45 Temperature Pulse Rate 88 88 Respiratory Rate Blood Pressure 94/41 L 94/41 L 137/59 L Pulse Oximetry Oxygen Delivery Fraction of Inspired Oxygen 10/05/25 21:45 10/05/25 22:00 10/05/25 22:00 Temperature 98.0 F Pulse Rate 85 85 Respiratory Rate 22 H Blood Pressure 137/59 L 113/51 L Pulse Oximetry 96 Oxygen Delivery Fraction of Inspired Oxygen 10/05/25 22:00 10/05/25 22:00 10/05/25 22:00 Temperature Pulse Rate 85 85 85 Respiratory Rate 22 H 22 H Blood Pressure 113/51 L Pulse Oximetry Oxygen Delivery Fraction of Inspired Oxygen 10/05/25 22:00 10/05/25 23:00 10/05/25 23:00 Temperature 97.8 F Pulse Rate 85 80 Respiratory Rate 22 H Blood Pressure 113/51 L 124/56 L Pulse Oximetry 96 Oxygen Delivery Fraction of Inspired Oxygen 35 10/05/25 23:20 10/05/25 23:30 10/05/25 23:45 Temperature Pulse Rate 81 80 79 Respiratory Rate Blood Pressure 136/56 L 126/56 L Pulse Oximetry 97 Oxygen Delivery Mechanical Ventilation Fraction of Inspired Oxygen 35 10/06/25 00:00 10/06/25 00:00 10/06/25 00:00 Temperature Pulse Rate 79 79 79 Respiratory Rate 22 H 22 H Blood Pressure 120/59 L Pulse Oximetry Oxygen Delivery Fraction of Inspired Oxygen 10/06/25 00:00 10/06/25 00:00 10/06/25 00:00 Temperature 97.7 F Pulse Rate 79 79 79 Respiratory Rate 22 H Blood Pressure 120/59 L 120/59 L Pulse Oximetry 97 Oxygen Delivery Fraction of Inspired Oxygen 10/06/25 00:00 10/06/25 00:15 10/06/25 00:30 Temperature Pulse Rate 78 76 Respiratory Rate 22 H Blood Pressure 122/56 L 116/52 L Pulse Oximetry 97 Oxygen Delivery Mechanical Ventilation Fraction of Inspired Oxygen 35 10/06/25 01:00 10/06/25 01:00 10/06/25 01:00 Temperature Pulse Rate 74 74 74 Respiratory Rate 22 H Blood Pressure 115/57 L 115/57 L Pulse Oximetry Oxygen Delivery Fraction of Inspired Oxygen 10/06/25 01:00 10/06/25 01:00 10/06/25 02:00 Temperature 97.6 F Pulse Rate 74 74 75 Respiratory Rate 22 H 22 H Blood Pressure 115/57 L 120/59 L Pulse Oximetry 97 Oxygen Delivery Fraction of Inspired Oxygen 10/06/25 02:00 10/06/25 02:00 10/06/25 02:00 Temperature Pulse Rate 75 75 75 Respiratory Rate 22 H 22 H Blood Pressure 120/59 L Pulse Oximetry Oxygen Delivery Fraction of Inspired Oxygen 10/06/25 02:00 10/06/25 02:00 10/06/25 02:15 Temperature 97.6 F Pulse Rate 75 75 74 Respiratory Rate 22 H Blood Pressure 120/59 L 106/50 L Pulse Oximetry 97 Oxygen Delivery Fraction of Inspired Oxygen 10/06/25 02:37 10/06/25 02:39 10/06/25 03:00 Temperature Pulse Rate 73 73 Respiratory Rate 22 H Blood Pressure Pulse Oximetry 97 Oxygen Delivery Mechanical Ventilation Fraction of Inspired Oxygen 35 30 10/06/25 03:00 10/06/25 04:00 10/06/25 04:00 Temperature 97.5 F L 97.4 F L Pulse Rate 75 101 H 101 H Respiratory Rate 22 H 22 H 22 H Blood Pressure 107/55 L 126/65 Pulse Oximetry 96 96 Oxygen Delivery Fraction of Inspired Oxygen 10/06/25 04:00 10/06/25 04:00 10/06/25 04:00 Temperature Pulse Rate 101 H 101 H 101 H Respiratory Rate 22 H Blood Pressure 126/65 126/65 Pulse Oximetry Oxygen Delivery Fraction of Inspired Oxygen 10/06/25 04:00 10/06/25 04:00 10/06/25 04:15 Temperature Pulse Rate 101 H 99 Respiratory Rate 22 H Blood Pressure 94/51 L Pulse Oximetry 96 Oxygen Delivery Mechanical Ventilation Fraction of Inspired Oxygen 30 10/06/25 05:00 10/06/25 05:13 10/06/25 05:15 Temperature 97.3 F L Pulse Rate 88 101 H Respiratory Rate 22 H Blood Pressure 99/56 L 116/59 L Pulse Oximetry 97 99 Oxygen Delivery Mechanical Ventilation Fraction of Inspired Oxygen 30 10/06/25 05:39 10/06/25 06:00 10/06/25 06:00 Temperature Pulse Rate 74 74 74 Respiratory Rate 22 H Blood Pressure 103/52 L 103/52 L Pulse Oximetry Oxygen Delivery Fraction of Inspired Oxygen 10/06/25 06:00 10/06/25 06:00 10/06/25 06:00 Temperature 97.4 F L Pulse Rate 74 74 74 Respiratory Rate 22 H 22 H 22 H Blood Pressure 103/52 L Pulse Oximetry 93 Oxygen Delivery Fraction of Inspired Oxygen 10/06/25 06:00 10/06/25 06:50 10/06/25 07:00 Temperature Pulse Rate 74 75 Respiratory Rate 22 H Blood Pressure Pulse Oximetry Oxygen Delivery Fraction of Inspired Oxygen 30 10/06/25 07:00 10/06/25 07:27 10/06/25 07:27 Temperature 97.7 F Pulse Rate 74 75 75 Respiratory Rate 22 H 22 H Blood Pressure 97/52 L Pulse Oximetry 96 96 Oxygen Delivery Mechanical Ventilation Fraction of Inspired Oxygen 30 10/06/25 07:35 10/06/25 07:35 10/06/25 08:00 Temperature 98.0 F Pulse Rate 75 77 78 Respiratory Rate 22 H 22 H 22 H Blood Pressure 98/49 L Pulse Oximetry 95 Oxygen Delivery Fraction of Inspired Oxygen 10/06/25 08:00 10/06/25 08:00 10/06/25 08:00 Temperature Pulse Rate 78 78 78 Respiratory Rate 22 H Blood Pressure 98/49 L 98/49 L Pulse Oximetry Oxygen Delivery Fraction of Inspired Oxygen 10/06/25 08:00 10/06/25 08:00 10/06/25 08:00 Temperature Pulse Rate 78 78 Respiratory Rate 22 H Blood Pressure Pulse Oximetry Oxygen Delivery Mechanical Ventilation Fraction of Inspired Oxygen 10/06/25 08:00 10/06/25 08:55 10/06/25 09:00 Temperature 98.2 F Pulse Rate 78 78 Respiratory Rate 22 H 22 H Blood Pressure 94/45 L Pulse Oximetry 95 Oxygen Delivery Fraction of Inspired Oxygen 30 10/06/25 10:00 10/06/25 10:00 10/06/25 10:00 Temperature 98.5 F Pulse Rate 77 77 77 Respiratory Rate 22 H 22 H Blood Pressure 100/51 L Pulse Oximetry 95 Oxygen Delivery Fraction of Inspired Oxygen 10/06/25 10:00 10/06/25 10:00 10/06/25 10:00 Temperature Pulse Rate 77 77 77 Respiratory Rate 22 H Blood Pressure 100/51 L 100/51 L Pulse Oximetry Oxygen Delivery Fraction of Inspired Oxygen 10/06/25 10:24 10/06/25 11:00 10/06/25 11:47 Temperature 98.7 F Pulse Rate 77 77 77 Respiratory Rate 22 H Blood Pressure 101/50 L 117/53 L Pulse Oximetry 95 95 Oxygen Delivery Mechanical Ventilation Fraction of Inspired Oxygen 30 10/06/25 12:00 10/06/25 12:00 10/06/25 12:00 Temperature Pulse Rate 77 77 77 Respiratory Rate 22 H Blood Pressure 94/49 L 94/49 L Pulse Oximetry Oxygen Delivery Fraction of Inspired Oxygen 10/06/25 12:00 10/06/25 12:00 10/06/25 12:00 Temperature 98.9 F Pulse Rate 77 77 77 Respiratory Rate 22 H 22 H Blood Pressure 94/49 L Pulse Oximetry 95 Oxygen Delivery Fraction of Inspired Oxygen 10/06/25 12:00 10/06/25 12:00 10/06/25 13:00 Temperature 99.0 F Pulse Rate 77 Respiratory Rate 22 H Blood Pressure 99/51 L Pulse Oximetry 95 Oxygen Delivery Mechanical Ventilation Fraction of Inspired Oxygen 30 Intake/Output Intake/Output: Intake & Output 10/03/25 10/04/25 10/05/25 10/06/25 23:59 23:59 23:59 23:59 Intake Total 3675.5 3069.3 1021.9 Output Total 250 700 450 Balance 3425.5 2369.3 571.9 Meds/Results Medications: Active Medications Generic Name Dose Route Start Last Admin Trade Name Freq PRN Reason Stop Dose Admin Aspirin 81 mg 10/04/25 17:50 10/06/25 08:06 Aspirin 81 Mg Chewable Tablet PO 81 mg DAILY@0800 VIKA Administration Dextrose 12.5 gm 10/04/25 13:16 Dextrose 50% 25 Gm/50 Ml Syringe IV PUSH PRN PRN Hypoglycemia Protocol Glucagon 1 mg 10/04/25 13:16 Glucagon For Inj 1 Mg Vial IM PRN PRN Hypoglycemia Protocol Glucose 15 gm 10/04/25 13:16 Glucose Oral Gel 15 Gm Of Glucse In 37.5 Gm Tube PO PRN PRN Hypoglycemia Protocol Norepinephrine Bitartrate 8 mg in 250 mls @ 3.75 mls/hr 10/04/25 08:30 10/06/25 12:00 Levophed 8 Mg/D5w 250 Ml IV CONT 2 mcg/min .Q24H VIKA 3.75 mls/hr Protocol Titration 2 MCG/MIN Metronidazole 500 mg in 100 mls @ 100 mls/hr 10/04/25 17:00 10/06/25 09:50 Flagyl 500 Mg/Iso Soln 100 Ml IVPB Infused Q8H VIKA Infusion Albumin Human 100 mls @ 60 mls/hr 10/04/25 12:00 10/06/25 13:18 Albutein IVPB Infused Q6HR VIKA Infusion Vasopressin 100 units/ 100 mls @ 2.4 mls/hr 10/04/25 12:00 10/06/25 12:00 Dextrose IV CONT 0.04 units/min .[id number] VIKA 2.4 mls/hr Protocol Titration 0.04 UNITS/MIN Cefepime HCl 2 gm/ Sodium 50 mls @ 100 mls/hr 10/04/25 12:25 10/06/25 08:38 Chloride IVPB Infused Q12HR VIKA Infusion Azithromycin 250 mg in 250 mls @ 250 mls/hr 10/05/25 09:00 10/06/25 10:55 Zithromax IVPB Infused Q24H VIKA Infusion Dextrose 1,000 mls @ 100 mls/hr 10/04/25 13:16 Dextrose 5% 1,000 Ml IVPB PRN PRN Hypoglycemia Protocol Fentanyl Citrate 2,500 mcg in 250 mls @ 2.5 mls/hr 10/04/25 19:45 10/06/25 12:00 Fentanyl 2,500 Mcg/Ns 250 Ml IV CONT 25 mcg/hr .Q72H VIKA 2.5 mls/hr Protocol Titration 25 MCG/HR Midazolam HCl 100 mg in 100 mls @ 1 mls/hr 10/04/25 19:45 10/06/25 12:00 Versed 100 Mg/Ns 100 Ml IV CONT 1 mg/hr .Q72H VIKA 1 mls/hr Protocol Titration 1 MG/HR Insulin Aspart 3 - 6 units 10/04/25 18:00 10/06/25 11:37 Insulin Aspart (*Bkc) 100 Units/Ml SUB-Q Not Given Q6HR VIKA Protocol Ipratropium [place] 0.5 mg 10/04/25 14:00 10/06/25 13:42 Ipratropium Br 0.02% Inh Soln 0.5 Mg/2.5 Ml Vial INHALATION 0.5 mg Q6HRT VIKA Administration Levalbuterol HCl 0.63 mg 10/04/25 14:00 10/06/25 13:42 Levalbuterol Neb 1.25 Mg/3 Ml INHALATION 0.63 mg Q6HRT VIKA Administration Pantoprazole Sodium 40 mg 10/04/25 21:00 10/06/25 08:10 Pantoprazole Sodium Iv 40 Mg Vial IV PUSH 40 mg Q12HR VIKA Administration Perflutren Lipid Microsphere 0 ml 10/04/25 12:41 Perflutren Lipid Microspheres 1.5 Ml Vial Diluted To 10 Ml Total Volume IV PUSH 10/07/25 12:42 ONCE PRN adequate visualization Protocol Sodium Chloride 10 ml 10/04/25 14:00 10/06/25 11:38 Central Line Flush IV PUSH 10 ml Q8HR VIKA Administration Sodium Chloride 20 ml 10/04/25 09:27 Central Line Flush IV PUSH PRN PRN after blood draws Thiamine HCl 100 mg 10/05/25 09:00 10/06/25 08:10 Thiamine Hcl 200 Mg/2 Ml Vial IV PUSH 100 mg QAM VIKA Administration Vancomycin HCl 1 each 10/04/25 12:47 Vancomycin For Acute Kidney Injury IVPB PRN PRN Vancomycin Protocol Radiology Results: ITS Impressions Head CT 10/04/25 07:09 IMPRESSION: 1. No acute intracranial findings. Chest/Abdomen/Pelvis CT 10/04/25 07:26 IMPRESSION: CHEST- 1. Interstitial pulmonary edema and small right pleural effusion. 2. Superimposed pneumonitis or interstitial lung disease not excluded. ABDOMEN/PELVIS- 1. Colonic hepatic flexure wall thickening. Colitis and/or malignancy. 2. Additional findings as above. Renal Ultrasound 10/05/25 13:44 Impression: 1: Unremarkable renal ultrasound. No stones, masses or hydronephrosis. 2: Splenomegaly. 3: Ascites. Chest X-Ray 10/06/25 10:23 IMPRESSION: 1. No significant change. 2. Persistent interstitial pulmonary edema, chronic interstitial changes, and/or multifocal airspace disease. Labs Labs: Laboratory Results - last 24 hr 10/04/25 10/05/25 10/06/25 14:17 17:41 00:18 WBC RBC Hgb Hct MCV MCH MCHC RDW Plt Count MPV Immature Gran % (Auto) Neut % (Auto) Lymph % (Auto) [place] % (Auto) Eos % (Auto) Baso % (Auto) Lymph # (Auto) [place] # (Auto) Eos # (Auto) Baso # (Auto) Abs Immat Gran (auto) Absolute Neuts (auto) Absolute Nucleated RBC Nucleated RBC % % Immature Plt Fraction PT INR APTT Puncture Site ABG pH ABG pCO2 ABG pO2 ABG PO2/FiO2 Ratio ABG HCO3 ABG O2 Saturation ABG O2 Content ABG Base Excess A-a Gradient Oxyhemoglobin Carboxyhemoglobin Methemoglobin Reduced Hemoglobin Total Hemoglobin O2 Delivery Device O2 Liters/Min Minute Volume Vent Rate Vent Mode FiO2 Tidal Volume PEEP Peak Inspir Pressure Pressure Support Sodium Potassium Chloride Carbon Dioxide Anion Gap BUN Creatinine Estim Creat Clear Calc Estimated GFR Glucose POC Capillary Glucose 155 H 148 H Lactic Acid Calcium Phosphorus Magnesium Total Bilirubin AST ALT Alkaline Phosphatase Total Creatine Kinase C-Reactive Protein Total Protein Albumin Random Vancomycin Hep B Core Total Ab Negative 10/06/25 10/06/25 10/06/25 04:15 05:04 05:44 WBC 6.3 RBC 2.22 L Hgb 7.6 L Hct 24.3 L MCV 109.5 H MCH 34.2 H MCHC 31.3 L RDW 15.6 H Plt Count 53 L MPV 10.1 Immature Gran % (Auto) 0.5 Neut % (Auto) 69.4 Lymph % (Auto) 14.4 L [place] % (Auto) 12.2 H Eos % (Auto) 3.2 Baso % (Auto) 0.3 Lymph # (Auto) 0.90 [place] # (Auto) 0.8 H Eos # (Auto) 0.2 Baso # (Auto) 0.0 Abs Immat Gran (auto) 0.03 Absolute Neuts (auto) 4.3 Absolute Nucleated RBC 0.000 Nucleated RBC % 0.0 % Immature Plt Fraction 2.0 PT 18.1 H INR 1.5 APTT 45.7 H Puncture Site Left radial ABG pH 7.419 ABG pCO2 34.6 L ABG pO2 97.1 ABG PO2/FiO2 Ratio 3.24 ABG HCO3 21.9 L ABG O2 Saturation 97.6 ABG O2 Content 12.6 L ABG Base Excess -2.2 A-a Gradient 76.1 Oxyhemoglobin 96.3 Carboxyhemoglobin 0.9 Methemoglobin 0.0 Reduced Hemoglobin 2.8 Total Hemoglobin 9.2 L O2 Delivery Device Ventilator O2 Liters/Min Not Reportable Minute Volume Not Reportable Vent Rate 22 Vent Mode Cmv FiO2 30 Tidal Volume 500 PEEP 10 Peak Inspir Pressure Not Reportable Pressure Support Not Reportable Sodium 140 Potassium 4.5 Chloride 108 H Carbon Dioxide 26 Anion Gap 6 BUN 47 H Creatinine 3.29 H Estim Creat Clear Calc 34 Estimated GFR 19 L Glucose 139 H POC Capillary Glucose 128 H Lactic Acid 1.3 Calcium 8.1 L Phosphorus 4.7 H Magnesium 2.0 Total Bilirubin 4.3 H AST 128 H ALT 27 Alkaline Phosphatase 92 Total Creatine Kinase 595 H C-Reactive Protein 14.0 H Total Protein 7.6 Albumin 3.1 L Random Vancomycin Hep B Core Total Ab 10/06/25 10/06/25 10:09 11:30 WBC RBC Hgb Hct MCV MCH MCHC RDW Plt Count MPV Immature Gran % (Auto) Neut % (Auto) Lymph % (Auto) [place] % (Auto) Eos % (Auto) Baso % (Auto) Lymph # (Auto) [place] # (Auto) Eos # (Auto) Baso # (Auto) Abs Immat Gran (auto) Absolute Neuts (auto) Absolute Nucleated RBC Nucleated RBC % % Immature Plt Fraction PT INR APTT Puncture Site ABG pH ABG pCO2 ABG pO2 ABG PO2/FiO2 Ratio ABG HCO3 ABG O2 Saturation ABG O2 Content ABG Base Excess A-a Gradient Oxyhemoglobin Carboxyhemoglobin Methemoglobin Reduced Hemoglobin Total Hemoglobin O2 Delivery Device O2 Liters/Min Minute Volume Vent Rate Vent Mode FiO2 Tidal Volume PEEP Peak Inspir Pressure Pressure Support Sodium Potassium Chloride Carbon Dioxide Anion Gap BUN Creatinine Estim Creat Clear Calc Estimated GFR Glucose POC Capillary Glucose 145 H Lactic Acid Calcium Phosphorus Magnesium Total Bilirubin AST ALT Alkaline Phosphatase Total Creatine Kinase C-Reactive Protein Total Protein Albumin Random Vancomycin 17.4 Hep B Core Total Ab
[2025-10-06] MEDS: FENTANYL 2,500MCG/NS250ML(*CRX 2,500 MCG/250 ML BAG IV CONT (20:52)
[2025-10-07] VITALS (38 sets, daily range): BP systolic 106–136; BP diastolic 55–75; PULSE 78–105; RESP 22–220; TEMP 36.8–37.3; O2SAT 91–94
[2025-10-07] MEDS: ALBUMIN HUMAN 25% 25 GM/100 ML 100 ML IVPB ×5 (00:28→23:55)
[2025-10-07] MEDS: metroNIDAZOLE 500 MG/ISO 100ML 500 MG/100 ML BAG 100 MG IVPB ×3 (00:56→16:12)
[2025-10-07] MEDS: NOREPINEPHRINE 8 MG/D5W 250 ML 8 MG/250 ML BAG 3.75 MG IV CONT (01:30)
[2025-10-07] MEDS: IPRATROPIUM BR 0.02% INH SOLN 0.5 MG/2.5 ML VIAL INHALATION ×2 (01:47→07:29)
[2025-10-07 05:04] LABS: Alveolar/Arterial O2 Gradient 87.9 mmHg; Carboxyhemoglobin 1.4 % THb (0-2.0); Fractional Inspired Oxygen 30 %; HCO3 ABG 21.9 mEq/l (22.0-26.0); Methemoglobin ABG 0.0 %THb (0-1.5); Oxygen Content ABG 12.0 %vol (16.0-22.0); Oxygen Saturation ABG 96.1 % (95.0-100.0); PCO2 ABG 36.9 mmHg (35.0-45.0); PO2 ABG 82.6 mmHg (80.0-100.0); PO2 FiO2 Ratio Arterial Blood 2.75 %; Reduced Hemoglobin 4.0 %THb (0-5.0)
[2025-10-07 05:12] LABS: Hematocrit 25.2 % (42.0-52.0); Hemoglobin 7.8 g/dL (14.0-18.0); Immature Granulocyte Percent A 0.8 % (0-0.5); Immature Platelet Fraction Pct 1.9 % (0.9-11.2); Lymphocytes Absolute Auto 0.69 K/mm3 (0.9-3.2); Mean Corpuscular HGB Conc 31.0 g/dl (32-36); Mean Corpuscular Hemoglobin 33.9 pg (26-34); Mean Corpuscular Volume 109.6 fl (80-100); Nucleated Red Blood Cells Absolute Auto 0.000 K/mm3 (0.0-0.012); Nucleated Red Blood Cells Perc 0.0 % (0.0-0.2); Platelet Count Result 49 k/mm3 (150-375); Red Blood Count 2.30 M/mm3 (4.6-6.20); White Blood Count 6.6 K/mm3 (4.5-10.0)
[2025-10-07 05:21] LABS: INR 1.5; Prothrombin Time 17.8 Seconds (11.1-14.7)
[2025-10-07 05:22] LABS: Partial Thromboplastin Time 46.5 Seconds (22.3-36.8)
[2025-10-07 05:25] LABS: Alanine Aminotransferase 24 U/L (6-50); Albumin Level 3.5 g/dL (3.5-5.1); Alkaline Phosphatase 85 U/L (38-126); Anion Gap 6 mmol/L (4-12); Aspartate Amino Transferase 101 U/L (17-59); Bilirubin,Total 4.9 mg/dL (0.2-1.3); Blood Urea Nitrogen 55 mg/dL (9-20); Calcium 8.4 mg/dL (8.4-10.2); Carbon Dioxide 23 mmol/L (22-30); Chloride 112 mmol/L (98-107); Creatine Kinase 463 U/L (55-170); Estimated CRCL calculation 29 ml/min; Estimated Glomerular Filt Rate 15; Glucose 118 mg/dL (65-110); Magnesium 2.1 mg/dL (1.6-2.3); Potassium 4.8 mmol/L (3.4-5.0); Sodium 141 mmol/L (137-145); Total Protein 7.8 g/dL (6.3-8.2)
[2025-10-07 05:34] LABS: Anisocytosis 1+; Hypochromasia 1+
[2025-10-07 05:35] LABS: Burr Cells 1+; Ovalocytes Occasional; Schistocytes None Seen
[2025-10-07 05:42] LABS: Modified Allen's Test Pass; Site Drawn RIGHT RADIAL
[2025-10-07 05:43] LABS: Arterial Blood Gas Tidal Volume 500 ml; Arterial Blood Gas Ventilator rate 22 /MIN
[2025-10-07] MEDS: CENTRAL LINE FLUSH 10 ML IV PUSH ×3 (06:10→22:19)
[2025-10-07] MEDS: CEFEPIME 2 GM in SODIUM CHLORIDE 0.9% IV 50 ML 100 ML IVPB ×2 (08:22→22:18)
[2025-10-07] MEDS: FUROSEMIDE INJ 100 MG/10 ML VIAL 80 MG IV PUSH ×2 (08:25→17:54)
[2025-10-07] MEDS: MINERAL OIL/WHITE PETROLATUM OINTMENT 1 APPLIC EACH EYE ×2 (08:26→20:19)
[2025-10-07] MEDS: ASPIRIN 81 MG CHEWABLE TABLET PO (08:26)
[2025-10-07] MEDS: THIAMINE HCL 200 MG/2 ML VIAL 100 MG IV PUSH (08:26)
[2025-10-07] MEDS: PANTOPRAZOLE SODIUM IV 40 MG VIAL IV PUSH ×2 (08:33→22:19)
[2025-10-07 08:38] LABS: Ammonia 35 umol/L (9-30)
--- NOTE | 2025-10-07 08:49 | P.PNINT_ITS ---
Progress Note: A&P Assessment and Plan (1) Acute respiratory failure: Code(s): J96.00 - Acute respiratory failure, unspecified whether with hypoxia or hypercapnia Status: Acute Assessment and Plan: 10/04: Patient presented the ED via EMS with complains of generalized weakness, fevers, shortness of breath and fever. When EMS arrived to his house he was found on the ground, unable to get up off the floor. Patient's O2 sats were in the 80s on room air. Patient was placed on supplemental oxygen. In the ED patient was awake, alert, oriented was able to answer questions. O2 sats were improved but he was hypotensive, once he was given IV fluids per sepsis protocol he was more short of breath and was intubated -10/04: Intubated in the ER for impending respiratory failure likely related to CHF -currently CMV mode of ventilation,PEEP to 10 30% FiO2 -chest x-ray shows pulmonary congestion and ABGs reviewed -wean FiO2 to maintain O2 sats > 92% -continue bronchodilators -sedated with fentany infusion, maintain RASS of 0 to -2 -sedation holiday -10/07 since patient is off of vasopressors. I will start patient on Lasix. Patient will need diuresis secondary to volume overload before weaning trial (2) Septic shock: Code(s): A41.9 - Sepsis, unspecified organism; R65.21 - Severe sepsis with septic shock Status: Acute Assessment and Plan: Patient with hypotension, likely related to pneumonia, possible lower abdomen cellulitis as seen on the CT scan. Could be related to heart failure -10/04: patient received 3.5 L IV fluid bolus in the ER, despite which his blood pressures remain low, is right-sided IJ central line was inserted, patient sta rted on Levophed Off vasopressors now Overall volume overloaded hence off IV fluids Continue cefepime, metronidazole and azithromycin (10/04). DC vancomycin (10/07) -10/04: Blood cultures have been obtained and pending -10/04: Urine cultures obtained and pending -10/04: sputum culture obtained and pending -10/04: Obtain urine Legionella and strep pneumo antigen, pending -chest x-ray shows Pulmonary vascular congestion, hold additional IV fluid -status post albumin for intravascular volume expansion 01/16/2025: Echocardiogram Summary 1. Left ventricular chamber dimension is normal. 2. Left ventricular systolic function is normal, estimated at 65-70%. 3. There is mildly increased left ventricular wall thickness. 4. The left ventricular diastolic function is grade I diastolic dysfunction. 5. Right ventricular systolic function is normal. 6. Left atrial chamber dimension is moderately enlarged. 7. Right atrial chamber dimension is moderately enlarged. 8. There is moderate aortic valve calcification. 9. There is moderate to severe aortic valve stenosis with a peak velocity of407 cm/s, mean gradient of 43 mmHg, and aortic valve area of 1.2 cm2. 10. There is mild aortic valve regurgitation. 11. There is mild to moderate tricuspid valve regurgitation. 12. Pulmonary hypertension, estimated pulmonary arterial systolic pressure is 48 mmHg. (3) MARIO (acute kidney injury): Code(s): N17.9 - Acute kidney failure, unspecified Status: Acute Assessment and Plan: Acute kidney injury, creatinine 1.83 on admission, (1.87-2.19 in January of 2025, prior to that patient's creatinine was 1.10-1.20 in March of 2023) -patient received 3.5 L of IV fluid bolus in the ER. Off further IV fluids -also received albumin -creatinine increased to 3.94 -will give Lasix 80 mg IV x1 -may need dialysis. Nephrology following. -will continue to monitor renal function, electrolytes and urine output -10/05/2025: Renal ultrasound did not show any stones, masses or hydronephrosis. Showed splenomegaly, ascites (4) Acute CHF: Code(s): I50.9 - Heart failure, unspecified Status: Acute Assessment and Plan: Patient has history of CHF, he does take furosemide at home, echocardiogram as above -chest x-ray shows pulmonary vascular congestion after receiving IV fluid -echo as above, diastolic heart failure (5) DM2 (diabetes mellitus, type 2): Code(s): E11.9 - Type 2 diabetes mellitus without complications Status: Chronic Assessment and Plan: Accu-Cheks and sliding scale insulin -patient does take Lantus at home, will restart if needed (6) Thrombocytopenia: Code(s): D69.6 - Thrombocytopenia, unspecified Status: Acute Assessment and Plan: Chronic thrombocytopenia could be related to cirrhosis, alcohol use -patient was evaluated by Oncology on 01/28/2023 -continue to monitor, -will transfuse as needed (7) Cirrhosis: Code(s): K74.60 - Unspecified cirrhosis of liver Status: Acute Assessment and Plan: CT scan of the abdomen and pelvis showed spleen enlargement and cirrhosis -patient also has anasarca -elevated bilirubin -appreciate GI evaluation recommendation -check ammonia level (8) Anasarca: Code(s): R60.1 - Generalized edema Status: Acute Assessment and Plan: Likely related to cirrhosis and congestive heart failure (9) GI bleed: Code(s): K92.2 - Gastrointestinal hemorrhage, unspecified Status: Acute Assessment and Plan: OG tube has blood draining, could be related to trauma secondary to OG tube placement or variceal bleed or gastritis as patient has cirrhosis -Protonix IV q.12 hours -appreciate GI evaluation, no more GI bleeding noted from the OG tube -patient does have cirrhosis, MELD score of 26 (10) Anemia: Code(s): D64.9 - Anemia, unspecified Status: Acute Assessment and Plan: Patient also has anemia with hemoglobin of 10.7 (which is close to his baseline) -will continue to monitor, hemoglobin gradually decreasing,, continue to monitor - transfuse for hemoglobin < 7.0 (11) Aortic stenosis: Code(s): I35.0 - Nonrheumatic aortic (valve) stenosis Status: Acute Assessment and Plan: Moderate to severe aortic valve stenosis with mean gradient of 43 mmHg and aortic valve area of 1.2 cm2 -will be cautious with IV fluids -repeat echocardiogram as above (12) NSTEMI (non-ST elevated myocardial infarction): Code(s): I21.4 - Non-ST elevation (NSTEMI) myocardial infarction Status: Acute Assessment and Plan: 10/04: Troponins were 4.720, 8.720 and 13.00. -cardiology was consulted, recommended starting heparin infusion -10/05: Heparin infusion was discontinued as this was thought to be secondary to type 2 myocardial infarction secondary to anemia, hypotension, respiratory failure and septic shock. -appreciate cardiology evaluation recommendation, no intervention at this time Plan DVT prophylaxis: SCDs, no chemoprophylaxis due to thrombocytopenia, anemia, patient also had bloody drainage from his OG tube on admission which has cleared up Stress ulcer prophylaxis: Protonix IV q.12 hours Nutrition: Advance tube feeds Code Status: Full code Critical Care Time Spent: 35 minutes Due to a high probability of clinically significant, life threatening deterioration, the patient required my highest level of preparedness to intervene emergently and I personally spent this critical care time directly and personally managing the patient. This critical care time included obtaining a history; examining the patient; pulse oximetry; ordering and review of studies; arranging urgent treatment with development of a management plan; evaluation of patient's response to treatment; frequent reassessment; and discussions with other providers. It was exclusive of separately billable procedures and treating other patients and teaching time. Please see Assessment and Plan section and the rest of the note for further information on patient assessment and treatment This dictation may have been done utilizing a voice recognition system. Attempts have been made to correct errors. However, there may be uncorrected grammatical, spelling, and recognitions errors present. Subjective Date/time seen: 10/07/25 Overnight events reviewed. Afebrile Continues to be on mechanical ventilation 10 of PEEP and 35% FiO2 Off vasopressors Continues to be sedated with fentanyl Other Vitals acceptable Urine output low Interval history: Reason for consult: Septic shock, pneumonia, pulmonary vascular congestion, colitis, acute kidney injury Review of Systems Review of Systems: ROS unobtainable: Yes unobtainable due to endotracheal tube, unobtainable due to medical condition and unobtainable due to mental status Exam Narrative: General: Intubated, sedated, in no acute distress HEENT:? Pupils equal and reactive, sclera is icteric, ETT in place Neck:? Thick neck, right IJ central line in place Respiratory:? Coarse breath sounds bilaterally, decreased at bases, no wheezing Cardiac:? S1-S2 is normal, sinus tachycardia, 2/6 ejection systolic murmur in the aortic area Abdomen:? Soft, nontender, nondistended, obese, hypoactive bowel sounds, thickening of the skin on the lower part of the abdomen with no redness but warm Extremities:? Bilateral lower extremity pitting edema, dopplerable pedal pulses Neuro:? Patient is intubated, sedated, does not open his eyes or follows simple commands. Patient does withdraw to pain Skin:? Chronic venous stasis changes and chronic skin discoloration which is likely due to diabetes according the . Patient also has a callus on the ball of the right toe Psych:? Unable to assess at this time Objective Data Vital Signs Vital Signs: Vital Signs - 24 hr 10/06/25 08:55 10/06/25 09:00 10/06/25 10:00 Temperature 36.8 C 36.9 C Pulse Rate 78 78 77 Respiratory Rate 22 H 22 H 22 H Blood Pressure 94/45 L 100/51 L Pulse Oximetry 95 95 Oxygen Delivery Fraction of Inspired Oxygen 10/06/25 10:00 10/06/25 10:00 10/06/25 10:00 Temperature Pulse Rate 77 77 77 Respiratory Rate 22 H Blood Pressure 100/51 L Pulse Oximetry Oxygen Delivery Fraction of Inspired Oxygen 10/06/25 10:00 10/06/25 10:00 10/06/25 10:24 Temperature Pulse Rate 77 77 77 Respiratory Rate 22 H Blood Pressure 100/51 L Pulse Oximetry 95 Oxygen Delivery Mechanical Ventilation Fraction of Inspired Oxygen 30 10/06/25 11:00 10/06/25 11:47 10/06/25 12:00 Temperature 37.1 C Pulse Rate 77 77 77 Respiratory Rate 22 H 22 H Blood Pressure 101/50 L 117/53 L Pulse Oximetry 95 Oxygen Delivery Fraction of Inspired Oxygen 10/06/25 12:00 10/06/25 12:00 10/06/25 12:00 Temperature Pulse Rate 77 77 77 Respiratory Rate 22 H Blood Pressure 94/49 L 94/49 L Pulse Oximetry Oxygen Delivery Fraction of Inspired Oxygen 10/06/25 12:00 10/06/25 12:00 10/06/25 12:00 Temperature 37.2 C Pulse Rate 77 77 Respiratory Rate 22 H Blood Pressure 94/49 L Pulse Oximetry 95 Oxygen Delivery Mechanical Ventilation Fraction of Inspired Oxygen 10/06/25 12:00 10/06/25 13:00 10/06/25 13:42 Temperature 37.2 C Pulse Rate 77 77 Respiratory Rate 22 H 22 H Blood Pressure 99/51 L Pulse Oximetry 95 Oxygen Delivery Fraction of Inspired Oxygen 30 10/06/25 13:42 10/06/25 13:50 10/06/25 14:00 Temperature Pulse Rate 77 76 79 Respiratory Rate 22 H 22 H Blood Pressure Pulse Oximetry 96 Oxygen Delivery Mechanical Ventilation Fraction of Inspired Oxygen 30 10/06/25 14:00 10/06/25 14:00 10/06/25 14:00 Temperature Pulse Rate 79 79 79 Respiratory Rate 22 H Blood Pressure 106/57 L 106/57 L Pulse Oximetry Oxygen Delivery Fraction of Inspired Oxygen 10/06/25 14:00 10/06/25 14:00 10/06/25 14:35 Temperature 37.0 C Pulse Rate 79 79 80 Respiratory Rate 22 H Blood Pressure 106/57 L 119/68 Pulse Oximetry 96 Oxygen Delivery Fraction of Inspired Oxygen 10/06/25 15:00 10/06/25 15:48 10/06/25 15:48 Temperature 36.9 C Pulse Rate 80 79 79 Respiratory Rate 22 H Blood Pressure 104/49 L 108/51 L 108/51 L Pulse Oximetry 95 Oxygen Delivery Fraction of Inspired Oxygen 10/06/25 16:00 10/06/25 16:00 10/06/25 16:00 Temperature Pulse Rate 80 80 80 Respiratory Rate 22 H 22 H Blood Pressure 109/54 L Pulse Oximetry Oxygen Delivery Fraction of Inspired Oxygen 10/06/25 16:00 10/06/25 16:00 10/06/25 16:00 Temperature 36.9 C Pulse Rate 80 81 80 Respiratory Rate 22 H Blood Pressure 109/54 L 109/54 L Pulse Oximetry 95 Oxygen Delivery Fraction of Inspired Oxygen 10/06/25 16:00 10/06/25 16:00 10/06/25 16:17 Temperature Pulse Rate 80 Respiratory Rate Blood Pressure 110/59 L Pulse Oximetry Oxygen Delivery Mechanical Ventilation Fraction of Inspired Oxygen 30 10/06/25 16:17 10/06/25 16:33 10/06/25 17:00 Temperature 37.0 C Pulse Rate 80 80 82 Respiratory Rate 22 H Blood Pressure 110/59 L 116/51 L 112/55 L Pulse Oximetry 94 Oxygen Delivery Fraction of Inspired Oxygen 10/06/25 17:08 10/06/25 17:26 10/06/25 18:00 Temperature Pulse Rate 76 79 78 Respiratory Rate 22 H Blood Pressure 112/55 L Pulse Oximetry 96 Oxygen Delivery Mechanical Ventilation Fraction of Inspired Oxygen 30 10/06/25 18:00 10/06/25 18:00 10/06/25 18:00 Temperature Pulse Rate 78 78 78 Respiratory Rate 22 H Blood Pressure 106/55 L 106/55 L Pulse Oximetry Oxygen Delivery Fraction of Inspired Oxygen 10/06/25 18:00 10/06/25 18:00 10/06/25 19:00 Temperature 37.1 C 37.1 C Pulse Rate 78 78 81 Respiratory Rate 22 H 22 H Blood Pressure 106/55 L 104/48 L Pulse Oximetry 91 94 Oxygen Delivery Fraction of Inspired Oxygen 10/06/25 19:53 10/06/25 19:57 10/06/25 20:00 Temperature Pulse Rate 83 83 83 Respiratory Rate 22 H 22 H Blood Pressure Pulse Oximetry 95 Oxygen Delivery Mechanical Ventilation Fraction of Inspired Oxygen 30 10/06/25 20:00 10/06/25 20:00 10/06/25 20:00 Temperature Pulse Rate 83 83 83 Respiratory Rate 22 H Blood Pressure 100/55 L 100/55 L Pulse Oximetry Oxygen Delivery Fraction of Inspired Oxygen 10/06/25 20:00 10/06/25 20:00 10/06/25 20:00 Temperature 37.0 C Pulse Rate 83 Respiratory Rate 22 H 22 H Blood Pressure 100/55 L Pulse Oximetry 95 95 Oxygen Delivery Mechanical Ventilation Fraction of Inspired Oxygen 30 30 10/06/25 20:00 10/06/25 20:08 10/06/25 20:52 Temperature Pulse Rate 84 83 88 Respiratory Rate 22 H 22 H Blood Pressure Pulse Oximetry Oxygen Delivery Fraction of Inspired Oxygen 10/06/25 20:52 10/06/25 21:00 10/06/25 22:00 Temperature 37.2 C 37.1 C Pulse Rate 88 88 94 Respiratory Rate 22 H 22 H 22 H Blood Pressure 98/49 L 110/57 L Pulse Oximetry 91 92 Oxygen Delivery Fraction of Inspired Oxygen 10/06/25 22:00 10/06/25 22:00 10/06/25 22:00 Temperature Pulse Rate 94 94 94 Respiratory Rate 22 H Blood Pressure 110/57 L Pulse Oximetry Oxygen Delivery Fraction of Inspired Oxygen 10/06/25 22:00 10/06/25 22:00 10/06/25 23:00 Temperature 37.1 C Pulse Rate 94 94 86 Respiratory Rate 22 H 22 H Blood Pressure 110/57 L 108/56 L Pulse Oximetry 93 Oxygen Delivery Fraction of Inspired Oxygen 10/06/25 23:12 10/07/25 00:00 10/07/25 00:00 Temperature Pulse Rate 86 92 92 Respiratory Rate 22 H Blood Pressure 106/61 Pulse Oximetry 94 Oxygen Delivery Mechanical Ventilation Fraction of Inspired Oxygen 30 10/07/25 00:00 10/07/25 00:00 10/07/25 00:00 Temperature 37.0 C Pulse Rate 92 92 92 Respiratory Rate 22 H 22 H Blood Pressure 106/61 106/61 Pulse Oximetry 91 Oxygen Delivery Fraction of Inspired Oxygen 10/07/25 00:00 10/07/25 00:00 10/07/25 00:00 Temperature Pulse Rate 92 Respiratory Rate 22 H Blood Pressure Pulse Oximetry 91 Oxygen Delivery Mechanical Ventilation Fraction of Inspired Oxygen 30 30 10/07/25 01:00 10/07/25 01:30 10/07/25 01:30 Temperature 36.8 C Pulse Rate 105 H 89 89 Respiratory Rate 22 H Blood Pressure 136/75 135/65 135/65 Pulse Oximetry 92 Oxygen Delivery Fraction of Inspired Oxygen 10/07/25 01:47 10/07/25 01:50 10/07/25 02:00 Temperature Pulse Rate 87 87 87 Respiratory Rate 22 H Blood Pressure 133/61 Pulse Oximetry 92 Oxygen Delivery Mechanical Ventilation Fraction of Inspired Oxygen 30 10/07/25 02:00 10/07/25 02:00 10/07/25 02:00 Temperature Pulse Rate 87 87 87 Respiratory Rate 22 H 22 H Blood Pressure 133/61 Pulse Oximetry Oxygen Delivery Fraction of Inspired Oxygen 10/07/25 02:00 10/07/25 02:00 10/07/25 02:03 Temperature 36.8 C Pulse Rate 87 87 86 Respiratory Rate 22 H 22 H Blood Pressure 133/61 Pulse Oximetry 92 Oxygen Delivery Fraction of Inspired Oxygen 10/07/25 02:15 10/07/25 03:00 10/07/25 04:00 Temperature 36.8 C Pulse Rate 86 85 84 Respiratory Rate 22 H 22 H Blood Pressure 117/55 L 124/58 L Pulse Oximetry 92 Oxygen Delivery Fraction of Inspired Oxygen 10/07/25 04:00 10/07/25 04:00 10/07/25 04:00 Temperature Pulse Rate 84 84 84 Respiratory Rate 22 H Blood Pressure 122/62 122/62 Pulse Oximetry Oxygen Delivery Fraction of Inspired Oxygen 10/07/25 04:00 10/07/25 04:00 10/07/25 04:00 Temperature 36.8 C Pulse Rate 84 84 Respiratory Rate 22 H Blood Pressure 122/62 Pulse Oximetry 92 Oxygen Delivery Fraction of Inspired Oxygen 30 10/07/25 04:00 10/07/25 04:45 10/07/25 05:00 Temperature 36.8 C Pulse Rate 84 85 Respiratory Rate 22 H 22 H Blood Pressure 118/60 118/57 L Pulse Oximetry 92 91 Oxygen Delivery Mechanical Ventilation Fraction of Inspired Oxygen 30 10/07/25 05:09 10/07/25 06:00 10/07/25 06:00 Temperature 36.8 C Pulse Rate 79 80 80 Respiratory Rate 22 H Blood Pressure 122/62 Pulse Oximetry 92 92 Oxygen Delivery Mechanical Ventilation Fraction of Inspired Oxygen 30 10/07/25 06:00 10/07/25 06:00 10/07/25 06:00 Temperature Pulse Rate 80 80 80 Respiratory Rate 22 H 22 H Blood Pressure 122/62 Pulse Oximetry Oxygen Delivery Fraction of Inspired Oxygen 10/07/25 06:00 10/07/25 07:00 10/07/25 07:30 Temperature 36.8 C Pulse Rate 80 80 80 Respiratory Rate 22 H Blood Pressure 122/62 121/61 Pulse Oximetry 93 92 Oxygen Delivery Mechanical Ventilation Fraction of Inspired Oxygen 30 10/07/25 07:30 10/07/25 08:00 Temperature 36.8 C Pulse Rate 80 81 Respiratory Rate 22 H 22 H Blood Pressure 123/57 L Pulse Oximetry 92 Oxygen Delivery Fraction of Inspired Oxygen Intake/Output Intake/Output: Intake & Output 10/04/25 10/05/25 10/06/25 10/07/25 23:59 23:59 23:59 23:59 Intake Total 3675.5 3069.3 1516.7 700.7 Output Total 250 700 600 280 Balance 3425.5 2369.3 916.7 420.7 Meds/Results Medications: Active Medications Generic Name Dose Route Start Last Admin Trade Name Freq PRN Reason Stop Dose Admin Aspirin 81 mg 10/04/25 17:50 10/07/25 08:26 Aspirin 81 Mg Chewable Tablet PO 81 mg DAILY@0800 [facility] Administration Dextrose 12.5 gm 10/04/25 13:16 Dextrose 50% 25 Gm/50 Ml Syringe IV PUSH PRN PRN Hypoglycemia Protocol Glucagon 1 mg 10/04/25 13:16 Glucagon For Inj 1 Mg Vial IM PRN PRN Hypoglycemia Protocol Glucose 15 gm 10/04/25 13:16 Glucose Oral Gel 15 Gm Of Glucse In 37.5 Gm Tube PO PRN PRN Hypoglycemia Protocol Norepinephrine Bitartrate 8 mg in 250 mls @ 0 mls/hr 10/04/25 08:30 10/07/25 06:00 Levophed 8 Mg/D5w 250 Ml IV CONT 0 mcg/min .Q0M VIKA 0 mls/hr Protocol Titration 0 MCG/MIN Metronidazole 500 mg in 100 mls @ 100 mls/hr 10/04/25 17:00 10/07/25 08:22 Flagyl 500 Mg/Iso Soln 100 Ml IVPB 100 mls/hr Q8H VIKA Administration Albumin Human 100 mls @ 60 mls/hr 10/04/25 12:00 10/07/25 07:56 Albutein IVPB Infused Q6HR VIKA Infusion Cefepime HCl 2 gm/ Sodium 50 mls @ 100 mls/hr 10/04/25 12:25 10/07/25 08:22 Chloride IVPB 100 mls/hr Q12HR VIKA Administration Azithromycin 250 mg in 250 mls @ 250 mls/hr 10/05/25 09:00 10/06/25 10:55 Zithromax IVPB 10/10/25 08:59 Infused Q24H VIKA Infusion Dextrose 1,000 mls @ 100 mls/hr 10/04/25 13:16 Dextrose 5% 1,000 Ml IVPB PRN PRN Hypoglycemia Protocol Fentanyl Citrate 2,500 mcg in 250 mls @ 2.5 mls/hr 10/04/25 19:45 10/07/25 06:00 Fentanyl 2,500 Mcg/Ns 250 Ml IV CONT 25 mcg/hr .Q72H VIKA 2.5 mls/hr Protocol Titration 25 MCG/HR Midazolam HCl 100 mg in 100 mls @ 0 mls/hr 10/04/25 19:45 10/07/25 06:00 Versed 100 Mg/Ns 100 Ml IV CONT 0 mg/hr .Q0M VIKA 0 mls/hr Protocol Titration 0 MG/HR Insulin Aspart 3 - 6 units 10/04/25 18:00 10/07/25 06:16 Insulin Aspart (*Bkc) 100 Units/Ml SUB-Q Not Given Q6HR [facility] Protocol Ipratropium [place] 0.5 mg 10/07/25 07:43 Ipratropium Br 0.02% Inh Soln 0.5 Mg/2.5 Ml Vial INHALATION Q6HRT PRN Wheezing Levalbuterol HCl 0.63 mg 10/07/25 07:44 Levalbuterol Neb 1.25 Mg/3 Ml INHALATION Q6HRT PRN Wheezing Multi-Ingred Cream/Lotion/Oil/Oint 1 applic 10/07/25 09:00 10/07/25 08:26 Mineral Oil/White Petrolatum Ointment EACH EYE 1 applic Q12HR VIKA Administration Pantoprazole Sodium 40 mg 10/04/25 21:00 10/07/25 08:33 Pantoprazole Sodium Iv 40 Mg Vial IV PUSH 40 mg Q12HR VIKA Administration Perflutren Lipid Microsphere 0 ml 10/04/25 12:41 Perflutren Lipid Microspheres 1.5 Ml Vial Diluted To 10 Ml Total Volume IV PUSH 10/07/25 12:42 ONCE PRN adequate visualization Protocol Sodium Chloride 10 ml 10/04/25 14:00 10/07/25 06:10 Central Line Flush IV PUSH 10 ml Q8HR VIKA Administration Sodium Chloride 20 ml 10/04/25 09:27 Central Line Flush IV PUSH PRN PRN after blood draws Thiamine HCl 100 mg 10/05/25 09:00 10/07/25 08:26 Thiamine Hcl 200 Mg/2 Ml Vial IV PUSH 100 mg QAM VIKA Administration Radiology Results: ITS Impressions Head CT 10/04/25 07:09 IMPRESSION: 1. No acute intracranial findings. Chest/Abdomen/Pelvis CT 10/04/25 07:26 IMPRESSION: CHEST- 1. Interstitial pulmonary edema and small right pleural effusion. 2. Superimposed pneumonitis or interstitial lung disease not excluded. ABDOMEN/PELVIS- 1. Colonic hepatic flexure wall thickening. Colitis and/or malignancy. 2. Additional findings as above. Renal Ultrasound 10/05/25 13:44 Impression: 1: Unremarkable renal ultrasound. No stones, masses or hydronephrosis. 2: Splenomegaly. 3: Ascites. Labs Labs: Laboratory Results - last 24 hr 10/06/25 10/06/25 10/06/25 10:09 11:30 17:19 WBC RBC Hgb Hct MCV MCH MCHC RDW Plt Count MPV Immature Gran % (Auto) Neut % (Auto) Lymph % (Auto) [place] % (Auto) Eos % (Auto) Baso % (Auto) Lymph # (Auto) [place] # (Auto) Eos # (Auto) Baso # (Auto) Abs Immat Gran (auto) Absolute Neuts (auto) Absolute Nucleated RBC Band Neutrophils % Nucleated RBC % Platelet Estimate % Immature Plt Fraction Hypochromasia Anisocytosis Ovalocytes Nesbit Cells Schistocytes PT INR APTT Puncture Site ABG pH ABG pCO2 ABG pO2 ABG PO2/FiO2 Ratio ABG HCO3 ABG O2 Saturation ABG O2 Content ABG Base Excess A-a Gradient Oxyhemoglobin Carboxyhemoglobin Methemoglobin Reduced Hemoglobin Total Hemoglobin O2 Delivery Device O2 Liters/Min Minute Volume Vent Rate Vent Mode FiO2 Tidal Volume PEEP Peak Inspir Pressure Pressure Support Sodium Potassium Chloride Carbon Dioxide Anion Gap BUN Creatinine Estim Creat Clear Calc Estimated GFR Glucose POC Capillary Glucose 145 H 136 H Lactic Acid Calcium Phosphorus Magnesium Total Bilirubin AST ALT Alkaline Phosphatase Ammonia Total Creatine Kinase Total Protein Albumin Random Vancomycin 17.4 10/07/25 10/07/25 10/07/25 00:28 04:48 04:53 WBC 6.6 RBC 2.30 L Hgb 7.8 L Hct 25.2 L MCV 109.6 H MCH 33.9 MCHC 31.0 L RDW 15.5 H Plt Count 49 L MPV 9.9 Immature Gran % (Auto) 0.8 H Neut % (Auto) 74.9 H Lymph % (Auto) 10.5 L [place] % (Auto) 10.9 H Eos % (Auto) 2.6 Baso % (Auto) 0.3 Lymph # (Auto) 0.69 L [place] # (Auto) 0.7 H Eos # (Auto) 0.2 Baso # (Auto) 0.0 Abs Immat Gran (auto) 0.05 H Absolute Neuts (auto) 4.9 Absolute Nucleated RBC 0.000 Band Neutrophils % Not Reportable Nucleated RBC % 0.0 Platelet Estimate Decreased % Immature Plt Fraction 1.9 Hypochromasia 1+ Anisocytosis 1+ Ovalocytes Occasional Timmy Cells 1+ Schistocytes None seen PT 17.8 H INR 1.5 APTT 46.5 H Puncture Site Right radial ABG pH 7.392 ABG pCO2 36.9 ABG pO2 82.6 ABG PO2/FiO2 Ratio 2.75 ABG HCO3 21.9 L ABG O2 Saturation 96.1 ABG O2 Content 12.0 L ABG Base Excess -2.6 A-a Gradient 87.9 Oxyhemoglobin 94.6 Carboxyhemoglobin 1.4 Methemoglobin 0.0 Reduced Hemoglobin 4.0 Total Hemoglobin 8.9 L O2 Delivery Device Ventilator O2 Liters/Min Not Reportable Minute Volume Not Reportable Vent Rate 22 Vent Mode Cmv FiO2 30 Tidal Volume 500 PEEP 10 Peak Inspir Pressure Not Reportable Pressure Support Not Reportable Sodium 141 Potassium 4.8 Chloride 112 H Carbon Dioxide 23 Anion Gap 6 BUN 55 H Creatinine 3.94 H Estim Creat Clear Calc 29 Estimated GFR 15 L Glucose 118 H POC Capillary Glucose 124 H Lactic Acid 1.4 Calcium 8.4 Phosphorus 5.3 H Magnesium 2.1 Total Bilirubin 4.9 H AST 101 H ALT 24 Alkaline Phosphatase 85 Ammonia Total Creatine Kinase 463 H Total Protein 7.8 Albumin 3.5 Random Vancomycin 10/07/25 10/07/25 06:15 08:17 WBC RBC Hgb Hct MCV MCH MCHC RDW Plt Count MPV Immature Gran % (Auto) Neut % (Auto) Lymph % (Auto) [place] % (Auto) Eos % (Auto) Baso % (Auto) Lymph # (Auto) [place] # (Auto) Eos # (Auto) Baso # (Auto) Abs Immat Gran (auto) Absolute Neuts (auto) Absolute Nucleated RBC Band Neutrophils % Nucleated RBC % Platelet Estimate % Immature Plt Fraction Hypochromasia Anisocytosis Ovalocytes Timmy Cells Schistocytes PT INR APTT Puncture Site ABG pH ABG pCO2 ABG pO2 ABG PO2/FiO2 Ratio ABG HCO3 ABG O2 Saturation ABG O2 Content ABG Base Excess A-a Gradient Oxyhemoglobin Carboxyhemoglobin Methemoglobin Reduced Hemoglobin Total Hemoglobin O2 Delivery Device O2 Liters/Min Minute Volume Vent Rate Vent Mode FiO2 Tidal Volume PEEP Peak Inspir Pressure Pressure Support Sodium Potassium Chloride Carbon Dioxide Anion Gap BUN Creatinine Estim Creat Clear Calc Estimated GFR Glucose POC Capillary Glucose 121 H Lactic Acid Calcium Phosphorus Magnesium Total Bilirubin AST ALT Alkaline Phosphatase Ammonia 35 H Total Creatine Kinase Total Protein Albumin Random Vancomycin Quality VTE Prophylaxis VTE prophylaxis: mechanical ordered
[2025-10-07] MEDS: AZITHROMYCIN 250 MG/NS 250 ML 250 MG/250 ML BAG IVPB (09:01)
--- NOTE | 2025-10-07 09:04 | PC.NURSE ---
PT sedated with fentanyl at 25mcg/hr. Spoke with Dr Arias and will continue with this rate.
--- NOTE | 2025-10-07 10:15 | P.PNCA_ITS ---
Progress Note: A&P Assessment and Plan (1) Aortic stenosis: Code(s): I35.0 - Nonrheumatic aortic (valve) stenosis Status: Acute Plan 65-year-old man with multiple comorbidities admitted with weakness respiratory failure fever significant anemia found to have elevated troponin. Again this is not a acute coronary syndrome as I mentioned in my consultation. He was treated with aggressive supportive care. He does have significant aortic stenosis by echocardiogram. It is possible but unlikely that he will ever be a candidate for aggressive treatment of this. Will continue to follow Garcia Beckford MD [facility] Subjective Date/time seen: Date of service: 10/07/25 10:15 Interval history: Follow-up visit in this 65-year-old man with: Elevated troponin with for type 2 myocardial infarction related to hypoxemia respiratory failure and significant anemia. Patient is being managed in the ICU has echocardiographic evidence of significant aortic valve stenosis. Background of alcohol abuse, alcoholic liver disease illicit drug abuse etc.. Now also has acute on chronic kidney failure. Exam Const: Other: Morbidly obese intubated chronically ill-appearing white male HENMT: Mouth: Yes moist mucous membranes Eyes: Sclera: sclerae normal Resp: Other: Breath sounds are grossly clear anterior Cardio: Rate: regular rate Rhythm: regular rhythm Other: Low pitched grade 2/6 crescendo decrescendo murmur is audible at the base GI: GI Palp: Yes Soft to palpation Urinary Catheter: Urinary Catheter: patent and draining Skin: General skin exam: normal color Neuro: Other: Intubated/sedated Extrem: Other: Chronically edematous changes of venous insufficiency Objective Data Vital Signs Vital Signs: Vital Signs - 24 hr 10/06/25 10:24 10/06/25 11:00 10/06/25 11:47 Temperature 37.1 C Pulse Rate 77 77 77 Respiratory Rate 22 H Blood Pressure 101/50 L 117/53 L Pulse Oximetry 95 95 Oxygen Delivery Mechanical Ventilation Fraction of Inspired Oxygen 30 10/06/25 12:00 10/06/25 12:00 10/06/25 12:00 Temperature Pulse Rate 77 77 77 Respiratory Rate 22 H Blood Pressure 94/49 L 94/49 L Pulse Oximetry Oxygen Delivery Fraction of Inspired Oxygen 10/06/25 12:00 10/06/25 12:00 10/06/25 12:00 Temperature 37.2 C Pulse Rate 77 77 77 Respiratory Rate 22 H 22 H Blood Pressure 94/49 L Pulse Oximetry 95 Oxygen Delivery Fraction of Inspired Oxygen 10/06/25 12:00 10/06/25 12:00 10/06/25 13:00 Temperature 37.2 C Pulse Rate 77 Respiratory Rate 22 H Blood Pressure 99/51 L Pulse Oximetry 95 Oxygen Delivery Mechanical Ventilation Fraction of Inspired Oxygen 30 10/06/25 13:42 10/06/25 13:42 10/06/25 13:50 Temperature Pulse Rate 77 77 76 Respiratory Rate 22 H 22 H Blood Pressure Pulse Oximetry 96 Oxygen Delivery Mechanical Ventilation Fraction of Inspired Oxygen 30 10/06/25 14:00 10/06/25 14:00 10/06/25 14:00 Temperature Pulse Rate 79 79 79 Respiratory Rate 22 H Blood Pressure 106/57 L 106/57 L Pulse Oximetry Oxygen Delivery Fraction of Inspired Oxygen 10/06/25 14:00 10/06/25 14:00 10/06/25 14:00 Temperature 37.0 C Pulse Rate 79 79 79 Respiratory Rate 22 H 22 H Blood Pressure 106/57 L Pulse Oximetry 96 Oxygen Delivery Fraction of Inspired Oxygen 10/06/25 14:35 10/06/25 15:00 10/06/25 15:48 Temperature 36.9 C Pulse Rate 80 80 79 Respiratory Rate 22 H Blood Pressure 119/68 104/49 L 108/51 L Pulse Oximetry 95 Oxygen Delivery Fraction of Inspired Oxygen 10/06/25 15:48 10/06/25 16:00 10/06/25 16:00 Temperature Pulse Rate 79 80 80 Respiratory Rate 22 H Blood Pressure 108/51 L 109/54 L Pulse Oximetry Oxygen Delivery Fraction of Inspired Oxygen 10/06/25 16:00 10/06/25 16:00 10/06/25 16:00 Temperature Pulse Rate 80 80 81 Respiratory Rate 22 H Blood Pressure 109/54 L Pulse Oximetry Oxygen Delivery Fraction of Inspired Oxygen 10/06/25 16:00 10/06/25 16:00 10/06/25 16:00 Temperature 36.9 C Pulse Rate 80 Respiratory Rate 22 H Blood Pressure 109/54 L Pulse Oximetry 95 Oxygen Delivery Mechanical Ventilation Fraction of Inspired Oxygen 30 10/06/25 16:17 10/06/25 16:17 10/06/25 16:33 Temperature Pulse Rate 80 80 80 Respiratory Rate Blood Pressure 110/59 L 110/59 L 116/51 L Pulse Oximetry Oxygen Delivery Fraction of Inspired Oxygen 10/06/25 17:00 10/06/25 17:08 10/06/25 17:26 Temperature 37.0 C Pulse Rate 82 76 79 Respiratory Rate 22 H Blood Pressure 112/55 L 112/55 L Pulse Oximetry 94 96 Oxygen Delivery Mechanical Ventilation Fraction of Inspired Oxygen 30 10/06/25 18:00 10/06/25 18:00 10/06/25 18:00 Temperature Pulse Rate 78 78 78 Respiratory Rate 22 H 22 H Blood Pressure 106/55 L Pulse Oximetry Oxygen Delivery Fraction of Inspired Oxygen 10/06/25 18:00 10/06/25 18:00 10/06/25 18:00 Temperature 37.1 C Pulse Rate 78 78 78 Respiratory Rate 22 H Blood Pressure 106/55 L 106/55 L Pulse Oximetry 91 Oxygen Delivery Fraction of Inspired Oxygen 10/06/25 19:00 10/06/25 19:53 10/06/25 19:57 Temperature 37.1 C Pulse Rate 81 83 83 Respiratory Rate 22 H 22 H Blood Pressure 104/48 L Pulse Oximetry 94 95 Oxygen Delivery Mechanical Ventilation Fraction of Inspired Oxygen 30 10/06/25 20:00 10/06/25 20:00 10/06/25 20:00 Temperature Pulse Rate 83 83 83 Respiratory Rate 22 H 22 H Blood Pressure 100/55 L Pulse Oximetry Oxygen Delivery Fraction of Inspired Oxygen 10/06/25 20:00 10/06/25 20:00 10/06/25 20:00 Temperature 37.0 C Pulse Rate 83 83 Respiratory Rate 22 H Blood Pressure 100/55 L 100/55 L Pulse Oximetry 95 Oxygen Delivery Fraction of Inspired Oxygen 30 10/06/25 20:00 10/06/25 20:00 10/06/25 20:08 Temperature Pulse Rate 84 83 Respiratory Rate 22 H 22 H Blood Pressure Pulse Oximetry 95 Oxygen Delivery Mechanical Ventilation Fraction of Inspired Oxygen 30 10/06/25 20:52 10/06/25 20:52 10/06/25 21:00 Temperature 37.2 C Pulse Rate 88 88 88 Respiratory Rate 22 H 22 H 22 H Blood Pressure 98/49 L Pulse Oximetry 91 Oxygen Delivery Fraction of Inspired Oxygen 10/06/25 22:00 10/06/25 22:00 10/06/25 22:00 Temperature 37.1 C Pulse Rate 94 94 94 Respiratory Rate 22 H 22 H Blood Pressure 110/57 L Pulse Oximetry 92 Oxygen Delivery Fraction of Inspired Oxygen 10/06/25 22:00 10/06/25 22:00 10/06/25 22:00 Temperature Pulse Rate 94 94 94 Respiratory Rate 22 H Blood Pressure 110/57 L 110/57 L Pulse Oximetry Oxygen Delivery Fraction of Inspired Oxygen 10/06/25 23:00 10/06/25 23:12 10/07/25 00:00 Temperature 37.1 C Pulse Rate 86 86 92 Respiratory Rate 22 H 22 H Blood Pressure 108/56 L Pulse Oximetry 93 94 Oxygen Delivery Mechanical Ventilation Fraction of Inspired Oxygen 30 10/07/25 00:00 10/07/25 00:00 10/07/25 00:00 Temperature Pulse Rate 92 92 92 Respiratory Rate 22 H Blood Pressure 106/61 106/61 Pulse Oximetry Oxygen Delivery Fraction of Inspired Oxygen 10/07/25 00:00 10/07/25 00:00 10/07/25 00:00 Temperature 37.0 C Pulse Rate 92 Respiratory Rate 22 H 22 H Blood Pressure 106/61 Pulse Oximetry 91 91 Oxygen Delivery Mechanical Ventilation Fraction of Inspired Oxygen 30 30 10/07/25 00:00 10/07/25 01:00 10/07/25 01:30 Temperature 36.8 C Pulse Rate 92 105 H 89 Respiratory Rate 22 H Blood Pressure 136/75 135/65 Pulse Oximetry 92 Oxygen Delivery Fraction of Inspired Oxygen 10/07/25 01:30 10/07/25 01:47 10/07/25 01:50 Temperature Pulse Rate 89 87 87 Respiratory Rate 22 H Blood Pressure 135/65 Pulse Oximetry 92 Oxygen Delivery Mechanical Ventilation Fraction of Inspired Oxygen 30 10/07/25 02:00 10/07/25 02:00 10/07/25 02:00 Temperature Pulse Rate 87 87 87 Respiratory Rate 22 H Blood Pressure 133/61 133/61 Pulse Oximetry Oxygen Delivery Fraction of Inspired Oxygen 10/07/25 02:00 10/07/25 02:00 10/07/25 02:00 Temperature 36.8 C Pulse Rate 87 87 87 Respiratory Rate 22 H 22 H Blood Pressure 133/61 Pulse Oximetry 92 Oxygen Delivery Fraction of Inspired Oxygen 10/07/25 02:03 10/07/25 02:15 10/07/25 03:00 Temperature 36.8 C Pulse Rate 86 86 85 Respiratory Rate 22 H 22 H Blood Pressure 117/55 L 124/58 L Pulse Oximetry 92 Oxygen Delivery Fraction of Inspired Oxygen 10/07/25 04:00 10/07/25 04:00 10/07/25 04:00 Temperature Pulse Rate 84 84 84 Respiratory Rate 22 H 22 H Blood Pressure 122/62 Pulse Oximetry Oxygen Delivery Fraction of Inspired Oxygen 10/07/25 04:00 10/07/25 04:00 10/07/25 04:00 Temperature 36.8 C Pulse Rate 84 84 Respiratory Rate 22 H Blood Pressure 122/62 122/62 Pulse Oximetry 92 Oxygen Delivery Fraction of Inspired Oxygen 30 10/07/25 04:00 10/07/25 04:00 10/07/25 04:45 Temperature Pulse Rate 84 84 Respiratory Rate 22 H Blood Pressure 118/60 Pulse Oximetry 92 Oxygen Delivery Mechanical Ventilation Fraction of Inspired Oxygen 30 10/07/25 05:00 10/07/25 05:09 10/07/25 06:00 Temperature 36.8 C 36.8 C Pulse Rate 85 79 80 Respiratory Rate 22 H 22 H Blood Pressure 118/57 L 122/62 Pulse Oximetry 91 92 92 Oxygen Delivery Mechanical Ventilation Fraction of Inspired Oxygen 30 10/07/25 06:00 10/07/25 06:00 10/07/25 06:00 Temperature Pulse Rate 80 80 80 Respiratory Rate 22 H 22 H Blood Pressure Pulse Oximetry Oxygen Delivery Fraction of Inspired Oxygen 10/07/25 06:00 10/07/25 06:00 10/07/25 07:00 Temperature 36.8 C Pulse Rate 80 80 80 Respiratory Rate 22 H Blood Pressure 122/62 122/62 121/61 Pulse Oximetry 93 Oxygen Delivery Fraction of Inspired Oxygen 10/07/25 07:30 10/07/25 07:30 10/07/25 08:00 Temperature Pulse Rate 80 80 80 Respiratory Rate 22 H 22 H Blood Pressure Pulse Oximetry 92 Oxygen Delivery Mechanical Ventilation Fraction of Inspired Oxygen 30 10/07/25 08:00 10/07/25 08:00 10/07/25 08:00 Temperature 36.8 C Pulse Rate 80 80 81 Respiratory Rate 22 H 22 H Blood Pressure 123/57 L 123/57 L Pulse Oximetry 92 Oxygen Delivery Fraction of Inspired Oxygen 10/07/25 08:00 10/07/25 08:00 10/07/25 08:00 Temperature Pulse Rate 80 81 Respiratory Rate Blood Pressure Pulse Oximetry 93 Oxygen Delivery Mechanical Ventilation Fraction of Inspired Oxygen 30 30 10/07/25 09:00 10/07/25 09:03 10/07/25 09:03 Temperature 36.8 C Pulse Rate 80 80 80 Respiratory Rate 22 H 22 H Blood Pressure 114/55 L 114/55 L Pulse Oximetry 94 Oxygen Delivery Fraction of Inspired Oxygen 10/07/25 10:00 Temperature 36.8 C Pulse Rate 82 Respiratory Rate 22 H Blood Pressure 112/58 L Pulse Oximetry 91 Oxygen Delivery Fraction of Inspired Oxygen Intake/Output Intake/Output: Intake & Output 10/04/25 10/05/25 10/06/25 10/07/25 23:59 23:59 23:59 23:59 Intake Total 3675.5 3069.3 1516.7 705.7 Output Total 250 700 600 280 Balance 3425.5 2369.3 916.7 425.7 Meds/Results Medications: Active Medications Generic Name Dose Route Start Last Admin Trade Name Freq PRN Reason Stop Dose Admin Aspirin 81 mg 10/04/25 17:50 10/07/25 08:26 Aspirin 81 Mg Chewable Tablet PO 81 mg DAILY@0800 VIKA Administration Dextrose 12.5 gm 10/04/25 13:16 Dextrose 50% 25 Gm/50 Ml Syringe IV PUSH PRN PRN Hypoglycemia Protocol Glucagon 1 mg 10/04/25 13:16 Glucagon For Inj 1 Mg Vial IM PRN PRN Hypoglycemia Protocol Glucose 15 gm 10/04/25 13:16 Glucose Oral Gel 15 Gm Of Glucse In 37.5 Gm Tube PO PRN PRN Hypoglycemia Protocol Norepinephrine Bitartrate 8 mg in 250 mls @ 0 mls/hr 10/04/25 08:30 10/07/25 09:03 Levophed 8 Mg/D5w 250 Ml IV CONT Not Given .Q0M VIKA Protocol 0 MCG/MIN Metronidazole 500 mg in 100 mls @ 100 mls/hr 10/04/25 17:00 10/07/25 08:22 Flagyl 500 Mg/Iso Soln 100 Ml IVPB 100 mls/hr Q8H VIKA Administration Albumin Human 100 mls @ 60 mls/hr 10/04/25 12:00 10/07/25 07:56 Albutein IVPB Infused Q6HR VIKA Infusion Cefepime HCl 2 gm/ Sodium 50 mls @ 100 mls/hr 10/04/25 12:25 10/07/25 08:22 Chloride IVPB 100 mls/hr Q12HR VIKA Administration Azithromycin 250 mg in 250 mls @ 250 mls/hr 10/05/25 09:00 10/07/25 09:01 Zithromax IVPB 10/10/25 08:59 250 mls/hr Q24H VIKA Administration Dextrose 1,000 mls @ 100 mls/hr 10/04/25 13:16 Dextrose 5% 1,000 Ml IVPB PRN PRN Hypoglycemia Protocol Fentanyl Citrate 2,500 mcg in 250 mls @ 2.5 mls/hr 10/04/25 19:45 10/07/25 08:00 Fentanyl 2,500 Mcg/Ns 250 Ml IV CONT 25 mcg/hr .Q72H VIKA 2.5 mls/hr Protocol Titration 25 MCG/HR Midazolam HCl 100 mg in 100 mls @ 0 mls/hr 10/04/25 19:45 10/07/25 09:03 Versed 100 Mg/Ns 100 Ml IV CONT Not Given .Q0M VIKA Protocol 0 MG/HR Insulin Aspart 3 - 6 units 10/04/25 18:00 10/07/25 06:16 Insulin Aspart (*Bkc) 100 Units/Ml SUB-Q Not Given Q6HR VIKA Protocol Ipratropium [place] 0.5 mg 10/07/25 07:43 Ipratropium Br 0.02% Inh Soln 0.5 Mg/2.5 Ml Vial INHALATION Q6HRT PRN Wheezing Levalbuterol HCl 0.63 mg 10/07/25 07:44 Levalbuterol Neb 1.25 Mg/3 Ml INHALATION Q6HRT PRN Wheezing Multi-Ingred Cream/Lotion/Oil/Oint 1 applic 10/07/25 09:00 10/07/25 08:26 Mineral Oil/White Petrolatum Ointment EACH EYE 1 applic Q12HR VIKA Administration Pantoprazole Sodium 40 mg 10/04/25 21:00 10/07/25 08:33 Pantoprazole Sodium Iv 40 Mg Vial IV PUSH 40 mg Q12HR VIKA Administration Perflutren Lipid Microsphere 0 ml 10/04/25 12:41 Perflutren Lipid Microspheres 1.5 Ml Vial Diluted To 10 Ml Total Volume IV PUSH 10/07/25 12:42 ONCE PRN adequate visualization Protocol Sodium Chloride 10 ml 10/04/25 14:00 10/07/25 06:10 Central Line Flush IV PUSH 10 ml Q8HR VIKA Administration Sodium Chloride 20 ml 10/04/25 09:27 Central Line Flush IV PUSH PRN PRN after blood draws Thiamine HCl 100 mg 10/05/25 09:00 10/07/25 08:26 Thiamine Hcl 200 Mg/2 Ml Vial IV PUSH 100 mg QAM VIKA Administration Radiology Results: ITS Impressions Head CT 10/04/25 07:09 IMPRESSION: 1. No acute intracranial findings. Chest/Abdomen/Pelvis CT 10/04/25 07:26 IMPRESSION: CHEST- 1. Interstitial pulmonary edema and small right pleural effusion. 2. Superimposed pneumonitis or interstitial lung disease not excluded. ABDOMEN/PELVIS- 1. Colonic hepatic flexure wall thickening. Colitis and/or malignancy. 2. Additional findings as above. Renal Ultrasound 10/05/25 13:44 Impression: 1: Unremarkable renal ultrasound. No stones, masses or hydronephrosis. 2: Splenomegaly. 3: Ascites. Labs Labs: Laboratory Results - last 24 hr 10/06/25 10/06/25 10/06/25 10:09 11:30 17:19 WBC RBC Hgb Hct MCV MCH MCHC RDW Plt Count MPV Immature Gran % (Auto) Neut % (Auto) Lymph % (Auto) [place] % (Auto) Eos % (Auto) Baso % (Auto) Lymph # (Auto) [place] # (Auto) Eos # (Auto) Baso # (Auto) Abs Immat Gran (auto) Absolute Neuts (auto) Absolute Nucleated RBC Band Neutrophils % Nucleated RBC % Platelet Estimate % Immature Plt Fraction Hypochromasia Anisocytosis Ovalocytes Ledger Cells Schistocytes PT INR APTT Puncture Site ABG pH ABG pCO2 ABG pO2 ABG PO2/FiO2 Ratio ABG HCO3 ABG O2 Saturation ABG O2 Content ABG Base Excess A-a Gradient Oxyhemoglobin Carboxyhemoglobin Methemoglobin Reduced Hemoglobin Total Hemoglobin O2 Delivery Device O2 Liters/Min Minute Volume Vent Rate Vent Mode FiO2 Tidal Volume PEEP Peak Inspir Pressure Pressure Support Sodium Potassium Chloride Carbon Dioxide Anion Gap BUN Creatinine Estim Creat Clear Calc Estimated GFR Glucose POC Capillary Glucose 145 H 136 H Lactic Acid Calcium Phosphorus Magnesium Total Bilirubin AST ALT Alkaline Phosphatase Ammonia Total Creatine Kinase Total Protein Albumin Random Vancomycin 17.4 10/07/25 10/07/25 10/07/25 00:28 04:48 04:53 WBC 6.6 RBC 2.30 L Hgb 7.8 L Hct 25.2 L MCV 109.6 H MCH 33.9 MCHC 31.0 L RDW 15.5 H Plt Count 49 L MPV 9.9 Immature Gran % (Auto) 0.8 H Neut % (Auto) 74.9 H Lymph % (Auto) 10.5 L [place] % (Auto) 10.9 H Eos % (Auto) 2.6 Baso % (Auto) 0.3 Lymph # (Auto) 0.69 L [place] # (Auto) 0.7 H Eos # (Auto) 0.2 Baso # (Auto) 0.0 Abs Immat Gran (auto) 0.05 H Absolute Neuts (auto) 4.9 Absolute Nucleated RBC 0.000 Band Neutrophils % Not Reportable Nucleated RBC % 0.0 Platelet Estimate Decreased % Immature Plt Fraction 1.9 Hypochromasia 1+ Anisocytosis 1+ Ovalocytes Occasional Ledger Cells 1+ Schistocytes None seen PT 17.8 H INR 1.5 APTT 46.5 H Puncture Site Right radial ABG pH 7.392 ABG pCO2 36.9 ABG pO2 82.6 ABG PO2/FiO2 Ratio 2.75 ABG HCO3 21.9 L ABG O2 Saturation 96.1 ABG O2 Content 12.0 L ABG Base Excess -2.6 A-a Gradient 87.9 Oxyhemoglobin 94.6 Carboxyhemoglobin 1.4 Methemoglobin 0.0 Reduced Hemoglobin 4.0 Total Hemoglobin 8.9 L O2 Delivery Device Ventilator O2 Liters/Min Not Reportable Minute Volume Not Reportable Vent Rate 22 Vent Mode Cmv FiO2 30 Tidal Volume 500 PEEP 10 Peak Inspir Pressure Not Reportable Pressure Support Not Reportable Sodium 141 Potassium 4.8 Chloride 112 H Carbon Dioxide 23 Anion Gap 6 BUN 55 H Creatinine 3.94 H Estim Creat Clear Calc 29 Estimated GFR 15 L Glucose 118 H POC Capillary Glucose 124 H Lactic Acid 1.4 Calcium 8.4 Phosphorus 5.3 H Magnesium 2.1 Total Bilirubin 4.9 H AST 101 H ALT 24 Alkaline Phosphatase 85 Ammonia Total Creatine Kinase 463 H Total Protein 7.8 Albumin 3.5 Random Vancomycin 10/07/25 10/07/25 06:15 08:17 WBC RBC Hgb Hct MCV MCH MCHC RDW Plt Count MPV Immature Gran % (Auto) Neut % (Auto) Lymph % (Auto) [place] % (Auto) Eos % (Auto) Baso % (Auto) Lymph # (Auto) [place] # (Auto) Eos # (Auto) Baso # (Auto) Abs Immat Gran (auto) Absolute Neuts (auto) Absolute Nucleated RBC Band Neutrophils % Nucleated RBC % Platelet Estimate % Immature Plt Fraction Hypochromasia Anisocytosis Ovalocytes Ledger Cells Schistocytes PT INR APTT Puncture Site ABG pH ABG pCO2 ABG pO2 ABG PO2/FiO2 Ratio ABG HCO3 ABG O2 Saturation ABG O2 Content ABG Base Excess A-a Gradient Oxyhemoglobin Carboxyhemoglobin Methemoglobin Reduced Hemoglobin Total Hemoglobin O2 Delivery Device O2 Liters/Min Minute Volume Vent Rate Vent Mode FiO2 Tidal Volume PEEP Peak Inspir Pressure Pressure Support Sodium Potassium Chloride Carbon Dioxide Anion Gap BUN Creatinine Estim Creat Clear Calc Estimated GFR Glucose POC Capillary Glucose 121 H Lactic Acid Calcium Phosphorus Magnesium Total Bilirubin AST ALT Alkaline Phosphatase Ammonia 35 H Total Creatine Kinase Total Protein Albumin Random Vancomycin
--- NOTE | 2025-10-07 10:36 | P.PNNP_ITS ---
Progress Note: A&P Assessment and Plan (1) Acute kidney injury: Code(s): N17.9 - Acute kidney failure, unspecified Status: Acute Assessment and Plan: * as noted by recent labs on 10/05 (creatinine up to 2.87mg/dL) * admission creatinine at baseline * now complicated by diminished urine output and volume overload * suspect multifactorial etiology: * hemodynamic instability/shock * infection/sepsis * hypoxia * cocaine use * CHF * rhabdomyolysis * NSTEMI * Pre renal factors due to shock and cirrhosis * other(?) * renal ultrasound shows normal kidneys and also note splenomegaly plus site * CK is down to 463; it never really was high enough to cause damage to the kidneys. * UA shows blood protein and red cells. He has had red cells for years. He probably should see a urologist down the line after he gets out of the hospital. * Both fractional excretion of sodium and fractional excretion of urea reflect a pre renal state. * Most likely renal failure is a reflection of several issues, as above. * he is still fairly sick. He is on 2 pressors. * His BUN creatinine are on the rise still. * Electrolytes are good enough that he would not necessarily need dialysis. * His blood pressure is better and he is off his pressors. * his platelet count is very low making catheter placement somewhat risky. * So will hold off On dialysis for another day. Since his blood pressure is better, perhaps he will start to turn around. Dr. Arias has given him a dose of Lasix 80mg to see if he makes some urine. If he does this would be a good prognostic sign. * I agree he still remains at risk for ROENTGENOLOGIST/dialysis in the future * continue efforts to optimize hemodynamics * discussed with Dr. Arias (2) Stage 3b chronic kidney disease: Code(s): N18.32 - Chronic kidney disease, stage 3b Status: Chronic Assessment and Plan: * creatinine 1.87mg/dL ~ 8 months ago on hospital discharge * was fluctuating 1.8 - 2.2mg/dL in the context of IV diuresis in January 2025 * prior to that, creatinine was ~ 1.1 - 1.2 in March of 2023 * presumably due to combination of diuretic use for CHF, diabetes, and hypertension +/- vascular disease (3) Septic shock: Code(s): A41.9 - Sepsis, unspecified organism; R65.21 - Severe sepsis with septic shock Status: Acute Assessment and Plan: * presented with hypotension unresponsive to IVF resuscitation * s/p 3.5L IVFs with no improvement in blood pressure * s/p RIJ central line placement and initiation of vasopressor therapy * suspected source include pnuemonia, lower abdominal wall cellulitis, and/or heart failure * follow culture data (blood, sputum, and urine) * Lactic acid now normal * cultures negative so far * on Zithromax, cefepime, and vancomycin. * pressors are off now and bp is better. (4) Acute respiratory failure: Code(s): J96.00 - Acute respiratory failure, unspecified whether with hypoxia or hypercapnia Status: Acute Assessment and Plan: * intubated in ER for impending respiratory failure * noted hypoxia * worsening SOB with IVF resuscitation * decline in respiratory status felt to be secondary to CHF +/- pnuemonia * on bronchodilator therapy * ventilator weaning as tolerated (5) Acute CHF: Code(s): I50.9 - Heart failure, unspecified Status: Acute Assessment and Plan: * known history * admission CXR with pulmonary vascular congestion * last Echo (01/16/25)noted: * ; previous Echo (01/16/25) noted: * left ventricular systolic function is normal, estimated at 65 - 70% * left ventricular diastolic function is grade I diastolic dysfunction * moderate to severe aortic valve stenosis with a peak velocity of 407 cm/s, mean gradient of 43 mmHg, and aortic valve area of 1.2 cm2 * mild aortic valve regurgitation * mild to moderate tricuspid valve regurgitation * pulmonary hypertension, estimated pulmonary arterial systolic pressure is 48 mmHg * repeat Echo shows normal EF, dilated LV, diastolic dysfunction, severe aortic stenosis, mild to moderate aortic valve regurgitation, mild to moderate tricuspid valve regurgitation, moderate pulmonary hypertension. * unable to diurese in the context of hypotension/shock (6) Anasarca: Code(s): R60.1 - Generalized edema Status: Acute Assessment and Plan: * likely a combination of CHF , MARIO, and liver cirrhosis/hypoalbuminemia * he received some fluids early on and also receive some albumin to try to mobilize some of the 3rd spaced fluid. * since hemodynamics better, trying a dose of Lasix. (7) Cirrhosis: Code(s): K74.60 - Unspecified cirrhosis of liver Status: Acute Assessment and Plan: * as noted by CT imaging: * noted spleen enlargement and cirrhosis * also with anasarca * trend bilirubin and LFTs * GI following (8) Anemia: Code(s): D64.9 - Anemia, unspecified Status: Acute Assessment and Plan: * Hemoglobin about the same at 7.8 * concern for GI loss given bleeding noted from OG tube * this appears to have resolved * suspect related to MARIO, CKD, and liver disease/cirrhosis * PRBC transfusion per protocol (9) Thrombocytopenia: Code(s): D69.6 - Thrombocytopenia, unspecified Status: Acute Assessment and Plan: * chronic issue * saw heme Onc in the past and this is felt to be related to cirrhosis and alcohol use * check another CBC tomorrow (10) DM2 (diabetes mellitus, type 2): Code(s): E11.9 - Type 2 diabetes mellitus without complications Status: Chronic Assessment and Plan: * follow accu-cheks * glycemic control per appeals assistant/hospitalist Subjective Date/time seen: 10/07/25 10:36 Interval history: Patient is resting comfortably in bed. He is on a ventilator. He is also sedated but the sedative is at a very light dose right now. Not making much urine Exam Narrative: WDWN Resting in bed, sedated, on the ventilator in NAD skin no rash or subcu nodules head ncat lungs coarse upper airway noise cor reg no rub or gallop abd BS+ nontender and soft ext 2+ bilateral edema. Objective Data Vital Signs Vital Signs: Vital Signs - 24 hr 10/06/25 11:00 10/06/25 11:47 10/06/25 12:00 Temperature 98.7 F Pulse Rate 77 77 77 Respiratory Rate 22 H 22 H Blood Pressure 101/50 L 117/53 L Pulse Oximetry 95 Oxygen Delivery Fraction of Inspired Oxygen 10/06/25 12:00 10/06/25 12:00 10/06/25 12:00 Temperature Pulse Rate 77 77 77 Respiratory Rate 22 H Blood Pressure 94/49 L 94/49 L Pulse Oximetry Oxygen Delivery Fraction of Inspired Oxygen 10/06/25 12:00 10/06/25 12:00 10/06/25 12:00 Temperature 98.9 F Pulse Rate 77 77 Respiratory Rate 22 H Blood Pressure 94/49 L Pulse Oximetry 95 Oxygen Delivery Mechanical Ventilation Fraction of Inspired Oxygen 10/06/25 12:00 10/06/25 13:00 10/06/25 13:42 Temperature 99.0 F Pulse Rate 77 77 Respiratory Rate 22 H 22 H Blood Pressure 99/51 L Pulse Oximetry 95 Oxygen Delivery Fraction of Inspired Oxygen 30 10/06/25 13:42 10/06/25 13:50 10/06/25 14:00 Temperature Pulse Rate 77 76 79 Respiratory Rate 22 H 22 H Blood Pressure Pulse Oximetry 96 Oxygen Delivery Mechanical Ventilation Fraction of Inspired Oxygen 30 10/06/25 14:00 10/06/25 14:00 10/06/25 14:00 Temperature Pulse Rate 79 79 79 Respiratory Rate 22 H Blood Pressure 106/57 L 106/57 L Pulse Oximetry Oxygen Delivery Fraction of Inspired Oxygen 10/06/25 14:00 10/06/25 14:00 10/06/25 14:35 Temperature 98.6 F Pulse Rate 79 79 80 Respiratory Rate 22 H Blood Pressure 106/57 L 119/68 Pulse Oximetry 96 Oxygen Delivery Fraction of Inspired Oxygen 10/06/25 15:00 10/06/25 15:48 10/06/25 15:48 Temperature 98.5 F Pulse Rate 80 79 79 Respiratory Rate 22 H Blood Pressure 104/49 L 108/51 L 108/51 L Pulse Oximetry 95 Oxygen Delivery Fraction of Inspired Oxygen 10/06/25 16:00 10/06/25 16:00 10/06/25 16:00 Temperature Pulse Rate 80 80 80 Respiratory Rate 22 H 22 H Blood Pressure 109/54 L Pulse Oximetry Oxygen Delivery Fraction of Inspired Oxygen 10/06/25 16:00 10/06/25 16:00 10/06/25 16:00 Temperature 98.4 F Pulse Rate 80 81 80 Respiratory Rate 22 H Blood Pressure 109/54 L 109/54 L Pulse Oximetry 95 Oxygen Delivery Fraction of Inspired Oxygen 10/06/25 16:00 10/06/25 16:00 10/06/25 16:17 Temperature Pulse Rate 80 Respiratory Rate Blood Pressure 110/59 L Pulse Oximetry Oxygen Delivery Mechanical Ventilation Fraction of Inspired Oxygen 30 10/06/25 16:17 10/06/25 16:33 10/06/25 17:00 Temperature 98.6 F Pulse Rate 80 80 82 Respiratory Rate 22 H Blood Pressure 110/59 L 116/51 L 112/55 L Pulse Oximetry 94 Oxygen Delivery Fraction of Inspired Oxygen 10/06/25 17:08 10/06/25 17:26 10/06/25 18:00 Temperature Pulse Rate 76 79 78 Respiratory Rate 22 H Blood Pressure 112/55 L Pulse Oximetry 96 Oxygen Delivery Mechanical Ventilation Fraction of Inspired Oxygen 30 10/06/25 18:00 10/06/25 18:00 10/06/25 18:00 Temperature Pulse Rate 78 78 78 Respiratory Rate 22 H Blood Pressure 106/55 L 106/55 L Pulse Oximetry Oxygen Delivery Fraction of Inspired Oxygen 10/06/25 18:00 10/06/25 18:00 10/06/25 19:00 Temperature 98.7 F 98.8 F Pulse Rate 78 78 81 Respiratory Rate 22 H 22 H Blood Pressure 106/55 L 104/48 L Pulse Oximetry 91 94 Oxygen Delivery Fraction of Inspired Oxygen 10/06/25 19:53 10/06/25 19:57 10/06/25 20:00 Temperature Pulse Rate 83 83 83 Respiratory Rate 22 H 22 H Blood Pressure Pulse Oximetry 95 Oxygen Delivery Mechanical Ventilation Fraction of Inspired Oxygen 30 10/06/25 20:00 10/06/25 20:00 10/06/25 20:00 Temperature Pulse Rate 83 83 83 Respiratory Rate 22 H Blood Pressure 100/55 L 100/55 L Pulse Oximetry Oxygen Delivery Fraction of Inspired Oxygen 10/06/25 20:00 10/06/25 20:00 10/06/25 20:00 Temperature 98.6 F Pulse Rate 83 Respiratory Rate 22 H 22 H Blood Pressure 100/55 L Pulse Oximetry 95 95 Oxygen Delivery Mechanical Ventilation Fraction of Inspired Oxygen 30 30 10/06/25 20:00 10/06/25 20:08 10/06/25 20:52 Temperature Pulse Rate 84 83 88 Respiratory Rate 22 H 22 H Blood Pressure Pulse Oximetry Oxygen Delivery Fraction of Inspired Oxygen 10/06/25 20:52 10/06/25 21:00 10/06/25 22:00 Temperature 98.9 F 98.8 F Pulse Rate 88 88 94 Respiratory Rate 22 H 22 H 22 H Blood Pressure 98/49 L 110/57 L Pulse Oximetry 91 92 Oxygen Delivery Fraction of Inspired Oxygen 10/06/25 22:00 10/06/25 22:00 10/06/25 22:00 Temperature Pulse Rate 94 94 94 Respiratory Rate 22 H Blood Pressure 110/57 L Pulse Oximetry Oxygen Delivery Fraction of Inspired Oxygen 10/06/25 22:00 10/06/25 22:00 10/06/25 23:00 Temperature 98.7 F Pulse Rate 94 94 86 Respiratory Rate 22 H 22 H Blood Pressure 110/57 L 108/56 L Pulse Oximetry 93 Oxygen Delivery Fraction of Inspired Oxygen 10/06/25 23:12 10/07/25 00:00 10/07/25 00:00 Temperature Pulse Rate 86 92 92 Respiratory Rate 22 H Blood Pressure 106/61 Pulse Oximetry 94 Oxygen Delivery Mechanical Ventilation Fraction of Inspired Oxygen 30 10/07/25 00:00 10/07/25 00:00 10/07/25 00:00 Temperature 98.6 F Pulse Rate 92 92 92 Respiratory Rate 22 H 22 H Blood Pressure 106/61 106/61 Pulse Oximetry 91 Oxygen Delivery Fraction of Inspired Oxygen 10/07/25 00:00 10/07/25 00:00 10/07/25 00:00 Temperature Pulse Rate 92 Respiratory Rate 22 H Blood Pressure Pulse Oximetry 91 Oxygen Delivery Mechanical Ventilation Fraction of Inspired Oxygen 30 30 10/07/25 01:00 10/07/25 01:30 10/07/25 01:30 Temperature 98.2 F Pulse Rate 105 H 89 89 Respiratory Rate 22 H Blood Pressure 136/75 135/65 135/65 Pulse Oximetry 92 Oxygen Delivery Fraction of Inspired Oxygen 10/07/25 01:47 10/07/25 01:50 10/07/25 02:00 Temperature Pulse Rate 87 87 87 Respiratory Rate 22 H Blood Pressure 133/61 Pulse Oximetry 92 Oxygen Delivery Mechanical Ventilation Fraction of Inspired Oxygen 30 10/07/25 02:00 10/07/25 02:00 10/07/25 02:00 Temperature Pulse Rate 87 87 87 Respiratory Rate 22 H 22 H Blood Pressure 133/61 Pulse Oximetry Oxygen Delivery Fraction of Inspired Oxygen 10/07/25 02:00 10/07/25 02:00 10/07/25 02:03 Temperature 98.2 F Pulse Rate 87 87 86 Respiratory Rate 22 H 22 H Blood Pressure 133/61 Pulse Oximetry 92 Oxygen Delivery Fraction of Inspired Oxygen 10/07/25 02:15 10/07/25 03:00 10/07/25 04:00 Temperature 98.2 F Pulse Rate 86 85 84 Respiratory Rate 22 H 22 H Blood Pressure 117/55 L 124/58 L Pulse Oximetry 92 Oxygen Delivery Fraction of Inspired Oxygen 10/07/25 04:00 10/07/25 04:00 10/07/25 04:00 Temperature Pulse Rate 84 84 84 Respiratory Rate 22 H Blood Pressure 122/62 122/62 Pulse Oximetry Oxygen Delivery Fraction of Inspired Oxygen 10/07/25 04:00 10/07/25 04:00 10/07/25 04:00 Temperature 98.3 F Pulse Rate 84 84 Respiratory Rate 22 H Blood Pressure 122/62 Pulse Oximetry 92 Oxygen Delivery Fraction of Inspired Oxygen 30 10/07/25 04:00 10/07/25 04:45 10/07/25 05:00 Temperature 98.3 F Pulse Rate 84 85 Respiratory Rate 22 H 22 H Blood Pressure 118/60 118/57 L Pulse Oximetry 92 91 Oxygen Delivery Mechanical Ventilation Fraction of Inspired Oxygen 30 10/07/25 05:09 10/07/25 06:00 10/07/25 06:00 Temperature 98.3 F Pulse Rate 79 80 80 Respiratory Rate 22 H Blood Pressure 122/62 Pulse Oximetry 92 92 Oxygen Delivery Mechanical Ventilation Fraction of Inspired Oxygen 30 10/07/25 06:00 10/07/25 06:00 10/07/25 06:00 Temperature Pulse Rate 80 80 80 Respiratory Rate 22 H 22 H Blood Pressure 122/62 Pulse Oximetry Oxygen Delivery Fraction of Inspired Oxygen 10/07/25 06:00 10/07/25 07:00 10/07/25 07:30 Temperature 98.3 F Pulse Rate 80 80 80 Respiratory Rate 22 H Blood Pressure 122/62 121/61 Pulse Oximetry 93 92 Oxygen Delivery Mechanical Ventilation Fraction of Inspired Oxygen 30 10/07/25 07:30 10/07/25 08:00 10/07/25 08:00 Temperature Pulse Rate 80 80 80 Respiratory Rate 22 H 22 H 22 H Blood Pressure Pulse Oximetry Oxygen Delivery Fraction of Inspired Oxygen 10/07/25 08:00 10/07/25 08:00 10/07/25 08:00 Temperature 98.3 F Pulse Rate 80 81 80 Respiratory Rate 22 H Blood Pressure 123/57 L 123/57 L Pulse Oximetry 92 Oxygen Delivery Fraction of Inspired Oxygen 10/07/25 08:00 10/07/25 08:00 10/07/25 09:00 Temperature 98.2 F Pulse Rate 81 80 Respiratory Rate 22 H Blood Pressure 114/55 L Pulse Oximetry 93 94 Oxygen Delivery Mechanical Ventilation Fraction of Inspired Oxygen 30 30 10/07/25 09:03 10/07/25 09:03 10/07/25 10:00 Temperature 98.3 F Pulse Rate 80 80 82 Respiratory Rate 22 H 22 H Blood Pressure 114/55 L 112/58 L Pulse Oximetry 91 Oxygen Delivery Fraction of Inspired Oxygen 10/07/25 10:00 10/07/25 10:00 10/07/25 10:00 Temperature Pulse Rate 81 81 81 Respiratory Rate 22 H 22 H Blood Pressure 119/59 L Pulse Oximetry Oxygen Delivery Fraction of Inspired Oxygen 10/07/25 10:00 Temperature Pulse Rate 81 Respiratory Rate Blood Pressure Pulse Oximetry Oxygen Delivery Fraction of Inspired Oxygen Intake/Output Intake/Output: Intake & Output 10/04/25 10/05/25 10/06/25 10/07/25 23:59 23:59 23:59 23:59 Intake Total 3675.5 3069.3 1516.7 860.7 Output Total 250 700 600 280 Balance 3425.5 2369.3 916.7 580.7 Meds/Results Medications: Active Medications Generic Name Dose Route Start Last Admin Trade Name Freq PRN Reason Stop Dose Admin Aspirin 81 mg 10/04/25 17:50 10/07/25 08:26 Aspirin 81 Mg Chewable Tablet PO 81 mg DAILY@0800 [facility] Administration Dextrose 12.5 gm 10/04/25 13:16 Dextrose 50% 25 Gm/50 Ml Syringe IV PUSH PRN PRN Hypoglycemia Protocol Glucagon 1 mg 10/04/25 13:16 Glucagon For Inj 1 Mg Vial IM PRN PRN Hypoglycemia Protocol Glucose 15 gm 10/04/25 13:16 Glucose Oral Gel 15 Gm Of Glucse In 37.5 Gm Tube PO PRN PRN Hypoglycemia Protocol Norepinephrine Bitartrate 8 mg in 250 mls @ 0 mls/hr 10/04/25 08:30 10/07/25 10:00 Levophed 8 Mg/D5w 250 Ml IV CONT 0 mcg/min .Q0M VIKA 0 mls/hr Protocol Titration 0 MCG/MIN Metronidazole 500 mg in 100 mls @ 100 mls/hr 10/04/25 17:00 10/07/25 10:15 Flagyl 500 Mg/Iso Soln 100 Ml IVPB Infused Q8H VIKA Infusion Albumin Human 100 mls @ 60 mls/hr 10/04/25 12:00 10/07/25 07:56 Albutein IVPB Infused Q6HR VIKA Infusion Cefepime HCl 2 gm/ Sodium 50 mls @ 100 mls/hr 10/04/25 12:25 10/07/25 10:15 Chloride IVPB Infused Q12HR VIKA Infusion Azithromycin 250 mg in 250 mls @ 250 mls/hr 10/05/25 09:00 10/07/25 09:01 Zithromax IVPB 10/10/25 08:59 250 mls/hr Q24H VIKA Administration Dextrose 1,000 mls @ 100 mls/hr 10/04/25 13:16 Dextrose 5% 1,000 Ml IVPB PRN PRN Hypoglycemia Protocol Fentanyl Citrate 2,500 mcg in 250 mls @ 2.5 mls/hr 10/04/25 19:45 10/07/25 10:00 Fentanyl 2,500 Mcg/Ns 250 Ml IV CONT 25 mcg/hr .Q72H VIKA 2.5 mls/hr Protocol Titration 25 MCG/HR Midazolam HCl 100 mg in 100 mls @ 0 mls/hr 10/04/25 19:45 10/07/25 10:00 Versed 100 Mg/Ns 100 Ml IV CONT 0 mg/hr .Q0M VIKA 0 mls/hr Protocol Titration 0 MG/HR Insulin Aspart 3 - 6 units 10/04/25 18:00 10/07/25 06:16 Insulin Aspart (*Bkc) 100 Units/Ml SUB-Q Not Given Q6HR [facility] Protocol Ipratropium [place] 0.5 mg 10/07/25 07:43 Ipratropium Br 0.02% Inh Soln 0.5 Mg/2.5 Ml Vial INHALATION Q6HRT PRN Wheezing Levalbuterol HCl 0.63 mg 10/07/25 07:44 Levalbuterol Neb 1.25 Mg/3 Ml INHALATION Q6HRT PRN Wheezing Multi-Ingred Cream/Lotion/Oil/Oint 1 applic 10/07/25 09:00 10/07/25 08:26 Mineral Oil/White Petrolatum Ointment EACH EYE 1 applic Q12HR VIKA Administration Pantoprazole Sodium 40 mg 10/04/25 21:00 10/07/25 08:33 Pantoprazole Sodium Iv 40 Mg Vial IV PUSH 40 mg Q12HR VIKA Administration Perflutren Lipid Microsphere 0 ml 10/04/25 12:41 Perflutren Lipid Microspheres 1.5 Ml Vial Diluted To 10 Ml Total Volume IV PUSH 10/07/25 12:42 ONCE PRN adequate visualization Protocol Sodium Chloride 10 ml 10/04/25 14:00 10/07/25 06:10 Central Line Flush IV PUSH 10 ml Q8HR VIKA Administration Sodium Chloride 20 ml 10/04/25 09:27 Central Line Flush IV PUSH PRN PRN after blood draws Thiamine HCl 100 mg 10/05/25 09:00 10/07/25 08:26 Thiamine Hcl 200 Mg/2 Ml Vial IV PUSH 100 mg QAM VIKA Administration Radiology Results: ITS Impressions Head CT 10/04/25 07:09 IMPRESSION: 1. No acute intracranial findings. Chest/Abdomen/Pelvis CT 10/04/25 07:26 IMPRESSION: CHEST- 1. Interstitial pulmonary edema and small right pleural effusion. 2. Superimposed pneumonitis or interstitial lung disease not excluded. ABDOMEN/PELVIS- 1. Colonic hepatic flexure wall thickening. Colitis and/or malignancy. 2. Additional findings as above. Renal Ultrasound 10/05/25 13:44 Impression: 1: Unremarkable renal ultrasound. No stones, masses or hydronephrosis. 2: Splenomegaly. 3: Ascites. Labs Labs: Laboratory Results - last 24 hr 10/06/25 10/06/25 10/06/25 10:09 11:30 17:19 WBC RBC Hgb Hct MCV MCH MCHC RDW Plt Count MPV Immature Gran % (Auto) Neut % (Auto) Lymph % (Auto) [place] % (Auto) Eos % (Auto) Baso % (Auto) Lymph # (Auto) [place] # (Auto) Eos # (Auto) Baso # (Auto) Abs Immat Gran (auto) Absolute Neuts (auto) Absolute Nucleated RBC Band Neutrophils % Nucleated RBC % Platelet Estimate % Immature Plt Fraction Hypochromasia Anisocytosis Ovalocytes [place] Cells Schistocytes PT INR APTT Puncture Site ABG pH ABG pCO2 ABG pO2 ABG PO2/FiO2 Ratio ABG HCO3 ABG O2 Saturation ABG O2 Content ABG Base Excess A-a Gradient Oxyhemoglobin Carboxyhemoglobin Methemoglobin Reduced Hemoglobin Total Hemoglobin O2 Delivery Device O2 Liters/Min Minute Volume Vent Rate Vent Mode FiO2 Tidal Volume PEEP Peak Inspir Pressure Pressure Support Sodium Potassium Chloride Carbon Dioxide Anion Gap BUN Creatinine Estim Creat Clear Calc Estimated GFR Glucose POC Capillary Glucose 145 H 136 H Lactic Acid Calcium Phosphorus Magnesium Total Bilirubin AST ALT Alkaline Phosphatase Ammonia Total Creatine Kinase Total Protein Albumin Random Vancomycin 17.4 10/07/25 10/07/25 10/07/25 00:28 04:48 04:53 WBC 6.6 RBC 2.30 L Hgb 7.8 L Hct 25.2 L MCV 109.6 H MCH 33.9 MCHC 31.0 L RDW 15.5 H Plt Count 49 L MPV 9.9 Immature Gran % (Auto) 0.8 H Neut % (Auto) 74.9 H Lymph % (Auto) 10.5 L [place] % (Auto) 10.9 H Eos % (Auto) 2.6 Baso % (Auto) 0.3 Lymph # (Auto) 0.69 L [place] # (Auto) 0.7 H Eos # (Auto) 0.2 Baso # (Auto) 0.0 Abs Immat Gran (auto) 0.05 H Absolute Neuts (auto) 4.9 Absolute Nucleated RBC 0.000 Band Neutrophils % Not Reportable Nucleated RBC % 0.0 Platelet Estimate Decreased % Immature Plt Fraction 1.9 Hypochromasia 1+ Anisocytosis 1+ Ovalocytes Occasional [place] Cells 1+ Schistocytes None seen PT 17.8 H INR 1.5 APTT 46.5 H Puncture Site Right radial ABG pH 7.392 ABG pCO2 36.9 ABG pO2 82.6 ABG PO2/FiO2 Ratio 2.75 ABG HCO3 21.9 L ABG O2 Saturation 96.1 ABG O2 Content 12.0 L ABG Base Excess -2.6 A-a Gradient 87.9 Oxyhemoglobin 94.6 Carboxyhemoglobin 1.4 Methemoglobin 0.0 Reduced Hemoglobin 4.0 Total Hemoglobin 8.9 L O2 Delivery Device Ventilator O2 Liters/Min Not Reportable Minute Volume Not Reportable Vent Rate 22 Vent Mode Cmv FiO2 30 Tidal Volume 500 PEEP 10 Peak Inspir Pressure Not Reportable Pressure Support Not Reportable Sodium 141 Potassium 4.8 Chloride 112 H Carbon Dioxide 23 Anion Gap 6 BUN 55 H Creatinine 3.94 H Estim Creat Clear Calc 29 Estimated GFR 15 L Glucose 118 H POC Capillary Glucose 124 H Lactic Acid 1.4 Calcium 8.4 Phosphorus 5.3 H Magnesium 2.1 Total Bilirubin 4.9 H AST 101 H ALT 24 Alkaline Phosphatase 85 Ammonia Total Creatine Kinase 463 H Total Protein 7.8 Albumin 3.5 Random Vancomycin 10/07/25 10/07/25 06:15 08:17 WBC RBC Hgb Hct MCV MCH MCHC RDW Plt Count MPV Immature Gran % (Auto) Neut % (Auto) Lymph % (Auto) [place] % (Auto) Eos % (Auto) Baso % (Auto) Lymph # (Auto) [place] # (Auto) Eos # (Auto) Baso # (Auto) Abs Immat Gran (auto) Absolute Neuts (auto) Absolute Nucleated RBC Band Neutrophils % Nucleated RBC % Platelet Estimate % Immature Plt Fraction Hypochromasia Anisocytosis Ovalocytes [place] Cells Schistocytes PT INR APTT Puncture Site ABG pH ABG pCO2 ABG pO2 ABG PO2/FiO2 Ratio ABG HCO3 ABG O2 Saturation ABG O2 Content ABG Base Excess A-a Gradient Oxyhemoglobin Carboxyhemoglobin Methemoglobin Reduced Hemoglobin Total Hemoglobin O2 Delivery Device O2 Liters/Min Minute Volume Vent Rate Vent Mode FiO2 Tidal Volume PEEP Peak Inspir Pressure Pressure Support Sodium Potassium Chloride Carbon Dioxide Anion Gap BUN Creatinine Estim Creat Clear Calc Estimated GFR Glucose POC Capillary Glucose 121 H Lactic Acid Calcium Phosphorus Magnesium Total Bilirubin AST ALT Alkaline Phosphatase Ammonia 35 H Total Creatine Kinase Total Protein Albumin Random Vancomycin
--- NOTE | 2025-10-07 11:33 | PM.IMPN ---
Progress Note: A&P Assessment and Plan (1) Acute respiratory failure: Code(s): J96.00 - Acute respiratory failure, unspecified whether with hypoxia or hypercapnia Status: Acute Assessment and Plan: 10/04: Patient presented the ED via EMS with complains of generalized weakness, fevers, shortness of breath and fever. When EMS arrived to his house he was found on the ground, unable to get up off the floor. Patient's O2 sats were in the 80s on room air. Patient was placed on supplemental oxygen. In the ED patient was awake, alert, oriented was able to answer questions. O2 sats were improved but he was hypotensive, once he was given IV fluids per sepsis protocol he was more short of breath and was intubated -10/04: Intubated in the ER for impending respiratory failure likely related to CHF Vent management per ICU (2) Septic shock: Code(s): A41.9 - Sepsis, unspecified organism; R65.21 - Severe sepsis with septic shock Status: Acute Assessment and Plan: Patient with hypotension, likely related to pneumonia, possible lower abdomen cellulitis as seen on the CT scan. Could be related to heart failure -10/04: patient received 3.5 L IV fluid bolus in the ER, despite which his blood pressures remain low, is right-sided IJ central line was inserted, patient started on Levophed -upon arrival to the ICU patient was on Levophed 20 mcg/min with systolic blood pressures in the 80s, I advised the bedside RN to go up on the Levophed and ordered vasopressin -will maintain MAP > 65 mmHg or SBP > 100 mmHg -patient had does have a provided pulse pressure -will obtain troponin -will repeat echocardiogram echocardiogram -lactic acid was 5.9 on admission, repeat was 4.2 -will trend lactic acid -patient was given 1 dose of ceftriaxone and azithromycin in the ER -given history of alcoholism, cocaine abuse started on cefepime, vancomycin and azithromycin (10/04) -10/04: Blood cultures have been obtained -10/04: Urine cultures obtained and pain -10/04: sputum culture obtained and pending -10/04: Obtain urine Legionella and strep pneumo antigen, pending -chest x-ray shows Pulmonary vascular congestion, hold additional IV fluid -receiving albumin for intravascular volume expansion 10/05: Patient has multi-system organ failure, 01/16/2025: Echocardiogram Summary 1. Left ventricular chamber dimension is normal. 2. Left ventricular systolic function is normal, estimated at 65-70%. 3. There is mildly increased left ventricular wall thickness. 4. The left ventricular diastolic function is grade I diastolic dysfunction. 5. Right ventricular systolic function is normal. 6. Left atrial chamber dimension is moderately enlarged. 7. Right atrial chamber dimension is moderately enlarged. 8. There is moderate aortic valve calcification. 9. There is moderate to severe aortic valve stenosis with a peak velocity of 407 cm/s, mean gradient of 43 mmHg, and aortic valve area of 1.2 cm2. 10. There is mild aortic valve regurgitation. 11. There is mild to moderate tricuspid valve regurgitation. 12. Pulmonary hypertension, estimated pulmonary arterial systolic pressure is 48 mmHg. (3) MARIO (acute kidney injury): Code(s): N17.9 - Acute kidney failure, unspecified Status: Acute Assessment and Plan: Acute kidney injury, creatinine 1.83 on admission, (1.87-2.19 in January of 2025, prior to that patient's creatinine was 1.10-1.20 in March of 2023) -patient received 3.5 L of IV fluid bolus in the ER -will continue to monitor renal function, electrolytes and urine output -albumin for intravascular volume expansion, hold additional IV fluids due to pulmonary vascular congestion on chest x-ray -10/05: Worsening creatinine, decreased urine output, likely related to rhabdomyolysis, CK levels trending down, continue maintenance IV fluid -nephrology consult Renal ultrasound with no hydronephrosis Creatinine continues to incline. Nephrology following. Poor urine output (4) Acute CHF: Code(s): I50.9 - Heart failure, unspecified Status: Acute Assessment and Plan: Patient has history of CHF, he does take furosemide at home, echocardiogram as above -chest x-ray shows pulmonary vascular congestion after receiving IV fluid -repeat echo 10/05/2025: EF 55-60% abnormal diastolic function severe aortic stenosis [id number] aortic regurgitation mild MR [id number] TR moderate pulmonary hypertension (5) DM2 (diabetes mellitus, type 2): Code(s): E11.9 - Type 2 diabetes mellitus without complications Status: Chronic Assessment and Plan: Accu-Cheks and sliding scale insulin -patient does take Lantus at home, will restart if needed (6) Thrombocytopenia: Code(s): D69.6 - Thrombocytopenia, unspecified Status: Acute Assessment and Plan: Chronic thrombocytopenia could be related to cirrhosis, alcohol use -patient was evaluated by Oncology on 01/28/2023 -continue to monitor, -will transfuse as needed Ultrasound with splenomegaly and ascites noted (7) Cirrhosis: Code(s): K74.60 - Unspecified cirrhosis of liver Status: Acute Assessment and Plan: CT scan of the abdomen and pelvis showed spleen enlargement and cirrhosis -patient also has anasarca -elevated bilirubin ultrasound with splenomegaly and ascites noted (8) Anasarca: Code(s): R60.1 - Generalized edema Status: Acute Assessment and Plan: Likely related to cirrhosis (9) GI bleed: Code(s): K92.2 - Gastrointestinal hemorrhage, unspecified Status: Acute Assessment and Plan: OG tube has blood draining, could be related to trauma secondary to OG tube placement or variceal bleed or gastritis as patient has cirrhosis -Protonix IV q.12 hours -appreciate GI evaluation, no more GI bleeding noted from the OG tube -patient does have cirrhosis, MELD score of 26 (10) Anemia: Code(s): D64.9 - Anemia, unspecified Status: Acute Assessment and Plan: Patient also has anemia with hemoglobin of 10.7 (which is close to his baseline) -will continue to monitor, transfuse for hemoglobin < 7.0 (11) Aortic stenosis: Code(s): I35.0 - Nonrheumatic aortic (valve) stenosis Status: Acute Assessment and Plan: Moderate to severe aortic valve stenosis with mean gradient of 43 mmHg and aortic valve area of 1.2 cm2 -caution with IV fluids -repeat echocardiogram has been ordered (12) NSTEMI (non-ST elevated myocardial infarction): Code(s): I21.4 - Non-ST elevation (NSTEMI) myocardial infarction Status: Acute Assessment and Plan: 10/04: Troponins were 4.720, 8.720 and 13.00. -cardiology was consulted, recommended starting heparin infusion -10/05: Heparin infusion was discontinued as this was thought to be secondary to type 2 myocardial infarction secondary to anemia, hypotension, respiratory failure and septic shock. Plan DVT prophylaxis: SCDs, no chemoprophylaxis due to blood in OG tube likely related to GI bleeding and thrombocytopenia Stress ulcer prophylaxis: Protonix IV q.12 hours Nutrition: NPO for now Code Status: Full code Subjective Date/time seen: 10/07/25 11:33 Interval history: HPI:65yo male with history of CKD, CHF, DM, BPH, and HTN who presents to the ED for SOB, weakness, and fever. EMS called a code sepsis from the household based on vital signs and physical exam. Patient was in respiratory distress and breathing heavy. His SpO2 was 89% on room air. He was found down on the ground reportedly altered and not able to get up. Patient on arrival to the ED was awake, alert and oriented answering questions. He was febrile, tachycardic, tachypneic, and hypoxic requiring supplemental oxygen for assistance. He became HoTN with BP 62/36. No specific complaints of chest pain, abdominal pain, nausea, vomiting, diarrhea. No injuries reported. He states he just does not feel well. No sick contacts at home. No recent hospitalizations per patient. Lactic was 5.9 -> 4.2. COVID, RSV and Influenza PCR was negative. WBC 16K with chronic thrombocytopenia. Nongap metabolic acidosis. CKD noted and stable with Cr at 1.8. MRSA nasal swab negative. UA not consistent with UTI. UDS positive for cocaine and cannabinoids. EtOH level 23. CXR showing no acute cardiopulmonary findings but possibly pulmonary fibrosis. Head CT showing no acute intracranial findings. CT Ch/A/P showing interstitial pulmonary edema, small right pleural effusion, colonic hepatic flexure wall thickening consistent with colitis and/or malignancy and cirrhosis. Cannot exclude superimposed pneumonitis or ILD. Patient's condition deteriorated. Central line was placed and was started on pressors. His respiratory condition deteriorated requiring intubation and mechanical ventilation. ABG 7.27/41/196 on mechanical ventilation. He was admitted to the ICU for further care. [employer] Office Mark[employer] Clerk was consulted. Patient sedated and unable to provide hx. No family in the room at this time. 10/05/2025 remains intubated and sedated. Events noted. Heparin drip was started on eventually was discontinued due to down trending H&H. at bedside and reviewed with her 10/06/2025 overnight events noted. Remains intubated and sedated. Labs reviewed. 10/07/2025: Overnight events noted. Remains intubated and sedated. Off both vasopressors today. Urine output is still poor. Labs reviewed and creatinine increased. Off Versed drip this a.m. discussed with nursing staff Review of Systems Review of Systems: ROS unobtainable: Yes unobtainable due to endotracheal tube Exam Narrative: General: Intubated, sedated, in no acute distress HEENT:? Pupils equal and reactive, sclera is icteric, ETT in place Neck:? Thick neck, right IJ central line in place Respiratory:? Coarse breath sounds bilaterally, decreased at bases, no wheezing Cardiac:? S1-S2 is normal, sinus tachycardia Abdomen:? Soft, nontender, nondistended, obese, hypoactive bowel sounds, Extremities:? Bilateral lower extremity pitting edema, dopplerable pedal pulses Neuro:? Patient is intubated, sedated, Skin:? Chronic venous stasis changes and chronic skin discoloration Psych:? Unable to assess at this time Objective Data Vital Signs Vital Signs: Vital Signs - 24 hr 10/06/25 11:47 10/06/25 12:00 10/06/25 12:00 Temperature Pulse Rate 77 77 77 Respiratory Rate 22 H Blood Pressure 117/53 L 94/49 L Pulse Oximetry Oxygen Delivery Fraction of Inspired Oxygen 10/06/25 12:00 10/06/25 12:00 10/06/25 12:00 Temperature Pulse Rate 77 77 77 Respiratory Rate 22 H Blood Pressure 94/49 L Pulse Oximetry Oxygen Delivery Fraction of Inspired Oxygen 10/06/25 12:00 10/06/25 12:00 10/06/25 12:00 Temperature 98.9 F Pulse Rate 77 Respiratory Rate 22 H Blood Pressure 94/49 L Pulse Oximetry 95 Oxygen Delivery Mechanical Ventilation Fraction of Inspired Oxygen 30 10/06/25 13:00 10/06/25 13:42 10/06/25 13:42 Temperature 99.0 F Pulse Rate 77 77 77 Respiratory Rate 22 H 22 H Blood Pressure 99/51 L Pulse Oximetry 95 96 Oxygen Delivery Mechanical Ventilation Fraction of Inspired Oxygen 30 10/06/25 13:50 10/06/25 14:00 10/06/25 14:00 Temperature Pulse Rate 76 79 79 Respiratory Rate 22 H 22 H Blood Pressure 106/57 L Pulse Oximetry Oxygen Delivery Fraction of Inspired Oxygen 10/06/25 14:00 10/06/25 14:00 10/06/25 14:00 Temperature Pulse Rate 79 79 79 Respiratory Rate 22 H Blood Pressure 106/57 L Pulse Oximetry Oxygen Delivery Fraction of Inspired Oxygen 10/06/25 14:00 10/06/25 14:35 10/06/25 15:00 Temperature 98.6 F 98.5 F Pulse Rate 79 80 80 Respiratory Rate 22 H 22 H Blood Pressure 106/57 L 119/68 104/49 L Pulse Oximetry 96 95 Oxygen Delivery Fraction of Inspired Oxygen 10/06/25 15:48 10/06/25 15:48 10/06/25 16:00 Temperature Pulse Rate 79 79 80 Respiratory Rate 22 H Blood Pressure 108/51 L 108/51 L Pulse Oximetry Oxygen Delivery Fraction of Inspired Oxygen 10/06/25 16:00 10/06/25 16:00 10/06/25 16:00 Temperature Pulse Rate 80 80 80 Respiratory Rate 22 H Blood Pressure 109/54 L 109/54 L Pulse Oximetry Oxygen Delivery Fraction of Inspired Oxygen 10/06/25 16:00 10/06/25 16:00 10/06/25 16:00 Temperature 98.4 F Pulse Rate 81 80 Respiratory Rate 22 H Blood Pressure 109/54 L Pulse Oximetry 95 Oxygen Delivery Mechanical Ventilation Fraction of Inspired Oxygen 10/06/25 16:00 10/06/25 16:17 10/06/25 16:17 Temperature Pulse Rate 80 80 Respiratory Rate Blood Pressure 110/59 L 110/59 L Pulse Oximetry Oxygen Delivery Fraction of Inspired Oxygen 30 10/06/25 16:33 10/06/25 17:00 10/06/25 17:08 Temperature 98.6 F Pulse Rate 80 82 76 Respiratory Rate 22 H Blood Pressure 116/51 L 112/55 L 112/55 L Pulse Oximetry 94 Oxygen Delivery Fraction of Inspired Oxygen 10/06/25 17:26 10/06/25 18:00 10/06/25 18:00 Temperature Pulse Rate 79 78 78 Respiratory Rate 22 H Blood Pressure 106/55 L Pulse Oximetry 96 Oxygen Delivery Mechanical Ventilation Fraction of Inspired Oxygen 30 10/06/25 18:00 10/06/25 18:00 10/06/25 18:00 Temperature Pulse Rate 78 78 78 Respiratory Rate 22 H Blood Pressure 106/55 L Pulse Oximetry Oxygen Delivery Fraction of Inspired Oxygen 10/06/25 18:00 10/06/25 19:00 10/06/25 19:53 Temperature 98.7 F 98.8 F Pulse Rate 78 81 83 Respiratory Rate 22 H 22 H 22 H Blood Pressure 106/55 L 104/48 L Pulse Oximetry 91 94 Oxygen Delivery Fraction of Inspired Oxygen 10/06/25 19:57 10/06/25 20:00 10/06/25 20:00 Temperature Pulse Rate 83 83 83 Respiratory Rate 22 H Blood Pressure 100/55 L Pulse Oximetry 95 Oxygen Delivery Mechanical Ventilation Fraction of Inspired Oxygen 30 10/06/25 20:00 10/06/25 20:00 10/06/25 20:00 Temperature 98.6 F Pulse Rate 83 83 83 Respiratory Rate 22 H 22 H Blood Pressure 100/55 L 100/55 L Pulse Oximetry 95 Oxygen Delivery Fraction of Inspired Oxygen 10/06/25 20:00 10/06/25 20:00 10/06/25 20:00 Temperature Pulse Rate 84 Respiratory Rate 22 H Blood Pressure Pulse Oximetry 95 Oxygen Delivery Mechanical Ventilation Fraction of Inspired Oxygen 30 30 10/06/25 20:08 10/06/25 20:52 10/06/25 20:52 Temperature Pulse Rate 83 88 88 Respiratory Rate 22 H 22 H 22 H Blood Pressure Pulse Oximetry Oxygen Delivery Fraction of Inspired Oxygen 10/06/25 21:00 10/06/25 22:00 10/06/25 22:00 Temperature 98.9 F 98.8 F Pulse Rate 88 94 94 Respiratory Rate 22 H 22 H Blood Pressure 98/49 L 110/57 L Pulse Oximetry 91 92 Oxygen Delivery Fraction of Inspired Oxygen 10/06/25 22:00 10/06/25 22:00 10/06/25 22:00 Temperature Pulse Rate 94 94 94 Respiratory Rate 22 H Blood Pressure 110/57 L 110/57 L Pulse Oximetry Oxygen Delivery Fraction of Inspired Oxygen 10/06/25 22:00 10/06/25 23:00 10/06/25 23:12 Temperature 98.7 F Pulse Rate 94 86 86 Respiratory Rate 22 H 22 H Blood Pressure 108/56 L Pulse Oximetry 93 94 Oxygen Delivery Mechanical Ventilation Fraction of Inspired Oxygen 30 10/07/25 00:00 10/07/25 00:00 10/07/25 00:00 Temperature Pulse Rate 92 92 92 Respiratory Rate 22 H 22 H Blood Pressure 106/61 Pulse Oximetry Oxygen Delivery Fraction of Inspired Oxygen 10/07/25 00:00 10/07/25 00:00 10/07/25 00:00 Temperature 98.6 F Pulse Rate 92 92 Respiratory Rate 22 H Blood Pressure 106/61 106/61 Pulse Oximetry 91 Oxygen Delivery Fraction of Inspired Oxygen 30 10/07/25 00:00 10/07/25 00:00 10/07/25 01:00 Temperature 98.2 F Pulse Rate 92 105 H Respiratory Rate 22 H 22 H Blood Pressure 136/75 Pulse Oximetry 91 92 Oxygen Delivery Mechanical Ventilation Fraction of Inspired Oxygen 30 10/07/25 01:30 10/07/25 01:30 10/07/25 01:47 Temperature Pulse Rate 89 89 87 Respiratory Rate 22 H Blood Pressure 135/65 135/65 Pulse Oximetry Oxygen Delivery Fraction of Inspired Oxygen 10/07/25 01:50 10/07/25 02:00 10/07/25 02:00 Temperature Pulse Rate 87 87 87 Respiratory Rate 22 H Blood Pressure 133/61 Pulse Oximetry 92 Oxygen Delivery Mechanical Ventilation Fraction of Inspired Oxygen 30 10/07/25 02:00 10/07/25 02:00 10/07/25 02:00 Temperature Pulse Rate 87 87 87 Respiratory Rate 22 H Blood Pressure 133/61 Pulse Oximetry Oxygen Delivery Fraction of Inspired Oxygen 10/07/25 02:00 10/07/25 02:03 10/07/25 02:15 Temperature 98.2 F Pulse Rate 87 86 86 Respiratory Rate 22 H 22 H Blood Pressure 133/61 117/55 L Pulse Oximetry 92 Oxygen Delivery Fraction of Inspired Oxygen 10/07/25 03:00 10/07/25 04:00 10/07/25 04:00 Temperature 98.2 F Pulse Rate 85 84 84 Respiratory Rate 22 H 22 H 22 H Blood Pressure 124/58 L Pulse Oximetry 92 Oxygen Delivery Fraction of Inspired Oxygen 10/07/25 04:00 10/07/25 04:00 10/07/25 04:00 Temperature 98.3 F Pulse Rate 84 84 84 Respiratory Rate 22 H Blood Pressure 122/62 122/62 122/62 Pulse Oximetry 92 Oxygen Delivery Fraction of Inspired Oxygen 10/07/25 04:00 10/07/25 04:00 10/07/25 04:00 Temperature Pulse Rate 84 Respiratory Rate 22 H Blood Pressure Pulse Oximetry 92 Oxygen Delivery Mechanical Ventilation Fraction of Inspired Oxygen 30 30 10/07/25 04:45 10/07/25 05:00 10/07/25 05:09 Temperature 98.3 F Pulse Rate 84 85 79 Respiratory Rate 22 H Blood Pressure 118/60 118/57 L Pulse Oximetry 91 92 Oxygen Delivery Mechanical Ventilation Fraction of Inspired Oxygen 30 10/07/25 06:00 10/07/25 06:00 10/07/25 06:00 Temperature 98.3 F Pulse Rate 80 80 80 Respiratory Rate 22 H 22 H Blood Pressure 122/62 Pulse Oximetry 92 Oxygen Delivery Fraction of Inspired Oxygen 10/07/25 06:00 10/07/25 06:00 10/07/25 06:00 Temperature Pulse Rate 80 80 80 Respiratory Rate 22 H Blood Pressure 122/62 122/62 Pulse Oximetry Oxygen Delivery Fraction of Inspired Oxygen 10/07/25 07:00 10/07/25 07:30 10/07/25 07:30 Temperature 98.3 F Pulse Rate 80 80 80 Respiratory Rate 22 H 22 H Blood Pressure 121/61 Pulse Oximetry 93 92 Oxygen Delivery Mechanical Ventilation Fraction of Inspired Oxygen 30 10/07/25 08:00 10/07/25 08:00 10/07/25 08:00 Temperature Pulse Rate 80 80 80 Respiratory Rate 22 H 22 H Blood Pressure 123/57 L Pulse Oximetry Oxygen Delivery Fraction of Inspired Oxygen 10/07/25 08:00 10/07/25 08:00 10/07/25 08:00 Temperature 98.3 F Pulse Rate 81 80 Respiratory Rate 22 H Blood Pressure 123/57 L Pulse Oximetry 92 Oxygen Delivery Fraction of Inspired Oxygen 30 10/07/25 08:00 10/07/25 09:00 10/07/25 09:03 Temperature 98.2 F Pulse Rate 81 80 80 Respiratory Rate 22 H Blood Pressure 114/55 L 114/55 L Pulse Oximetry 93 94 Oxygen Delivery Mechanical Ventilation Fraction of Inspired Oxygen 30 10/07/25 09:03 10/07/25 10:00 10/07/25 10:00 Temperature 98.3 F Pulse Rate 80 82 81 Respiratory Rate 22 H 22 H 22 H Blood Pressure 112/58 L Pulse Oximetry 91 Oxygen Delivery Fraction of Inspired Oxygen 10/07/25 10:00 10/07/25 10:00 10/07/25 10:00 Temperature Pulse Rate 81 81 81 Respiratory Rate 22 H Blood Pressure 119/59 L Pulse Oximetry Oxygen Delivery Fraction of Inspired Oxygen 10/07/25 10:56 10/07/25 11:00 Temperature 98.4 F Pulse Rate 81 81 Respiratory Rate 22 H Blood Pressure 115/57 L Pulse Oximetry 92 93 Oxygen Delivery Mechanical Ventilation Fraction of Inspired Oxygen 30 Intake/Output Intake/Output: Intake & Output 11/27/25 11/28/25 11/29/25 11/30/25 23:59 23:59 23:59 23:59 Intake Total 3675.5 3069.3 1516.7 860.7 Output Total 250 700 600 280 Balance 3425.5 2369.3 916.7 580.7 Meds/Results Medications: Active Medications Generic Name Dose Route Start Last Admin Trade Name Freq PRN Reason Stop Dose Admin Aspirin 81 mg 10/04/25 17:50 10/07/25 08:26 Aspirin 81 Mg Chewable Tablet PO 81 mg DAILY@0800 VIKA Administration Dextrose 12.5 gm 10/04/25 13:16 Dextrose 50% 25 Gm/50 Ml Syringe IV PUSH PRN PRN Hypoglycemia Protocol Glucagon 1 mg 10/04/25 13:16 Glucagon For Inj 1 Mg Vial IM PRN PRN Hypoglycemia Protocol Glucose 15 gm 10/04/25 13:16 Glucose Oral Gel 15 Gm Of Glucse In 37.5 Gm Tube PO PRN PRN Hypoglycemia Protocol Norepinephrine Bitartrate 8 mg in 250 mls @ 0 mls/hr 10/04/25 08:30 10/07/25 10:00 Levophed 8 Mg/D5w 250 Ml IV CONT 0 mcg/min .Q0M VIKA 0 mls/hr Protocol Titration 0 MCG/MIN Metronidazole 500 mg in 100 mls @ 100 mls/hr 10/04/25 17:00 10/07/25 10:15 Flagyl 500 Mg/Iso Soln 100 Ml IVPB Infused Q8H VIKA Infusion Albumin Human 100 mls @ 60 mls/hr 10/04/25 12:00 10/07/25 07:56 Albutein IVPB Infused Q6HR VIKA Infusion Cefepime HCl 2 gm/ Sodium 50 mls @ 100 mls/hr 10/04/25 12:25 10/07/25 10:15 Chloride IVPB Infused Q12HR VIKA Infusion Azithromycin 250 mg in 250 mls @ 250 mls/hr 10/05/25 09:00 10/07/25 09:01 Zithromax IVPB 10/10/25 08:59 250 mls/hr Q24H VIKA Administration Dextrose 1,000 mls @ 100 mls/hr 10/04/25 13:16 Dextrose 5% 1,000 Ml IVPB PRN PRN Hypoglycemia Protocol Fentanyl Citrate 2,500 mcg in 250 mls @ 2.5 mls/hr 10/04/25 19:45 10/07/25 10:00 Fentanyl 2,500 Mcg/Ns 250 Ml IV CONT 25 mcg/hr .Q72H VIKA 2.5 mls/hr Protocol Titration 25 MCG/HR Midazolam HCl 100 mg in 100 mls @ 0 mls/hr 10/04/25 19:45 10/07/25 10:00 Versed 100 Mg/Ns 100 Ml IV CONT 0 mg/hr .Q0M VIKA 0 mls/hr Protocol Titration 0 MG/HR Insulin Aspart 3 - 6 units 10/04/25 18:00 10/07/25 06:16 Insulin Aspart (*Bkc) 100 Units/Ml SUB-Q Not Given Q6HR VIKA Protocol Ipratropium [place] 0.5 mg 10/07/25 07:43 Ipratropium Br 0.02% Inh Soln 0.5 Mg/2.5 Ml Vial INHALATION Q6HRT PRN Wheezing Levalbuterol HCl 0.63 mg 10/07/25 07:44 Levalbuterol Neb 1.25 Mg/3 Ml INHALATION Q6HRT PRN Wheezing Multi-Ingred Cream/Lotion/Oil/Oint 1 applic 10/07/25 09:00 10/07/25 08:26 Mineral Oil/White Petrolatum Ointment EACH EYE 1 applic Q12HR VIKA Administration Pantoprazole Sodium 40 mg 10/04/25 21:00 10/07/25 08:33 Pantoprazole Sodium Iv 40 Mg Vial IV PUSH 40 mg Q12HR VIKA Administration Perflutren Lipid Microsphere 0 ml 10/04/25 12:41 Perflutren Lipid Microspheres 1.5 Ml Vial Diluted To 10 Ml Total Volume IV PUSH 10/07/25 12:42 ONCE PRN adequate visualization Protocol Sodium Chloride 10 ml 10/04/25 14:00 10/07/25 06:10 Central Line Flush IV PUSH 10 ml Q8HR VIKA Administration Sodium Chloride 20 ml 10/04/25 09:27 Central Line Flush IV PUSH PRN PRN after blood draws Thiamine HCl 100 mg 10/05/25 09:00 10/07/25 08:26 Thiamine Hcl 200 Mg/2 Ml Vial IV PUSH 100 mg QAM VIKA Administration Radiology Results: ITS Impressions Head CT 10/04/25 07:09 IMPRESSION: 1. No acute intracranial findings. Chest/Abdomen/Pelvis CT 10/04/25 07:26 IMPRESSION: CHEST- 1. Interstitial pulmonary edema and small right pleural effusion. 2. Superimposed pneumonitis or interstitial lung disease not excluded. ABDOMEN/PELVIS- 1. Colonic hepatic flexure wall thickening. Colitis and/or malignancy. 2. Additional findings as above. Renal Ultrasound 10/05/25 13:44 Impression: 1: Unremarkable renal ultrasound. No stones, masses or hydronephrosis. 2: Splenomegaly. 3: Ascites. Chest X-Ray 10/07/25 10:58 IMPRESSION: 1. Worsening interstitial pulmonary edema and/or pneumonitis. 2. Persistent left lower lobe collapse. Superimposed airspace disease and/or effusion not excluded. Labs Labs: Laboratory Results - last 24 hr 10/06/25 10/06/25 10/06/25 10:09 11:30 17:19 WBC RBC Hgb Hct MCV MCH MCHC RDW Plt Count MPV Immature Gran % (Auto) Neut % (Auto) Lymph % (Auto) [place] % (Auto) Eos % (Auto) Baso % (Auto) Lymph # (Auto) [place] # (Auto) Eos # (Auto) Baso # (Auto) Abs Immat Gran (auto) Absolute Neuts (auto) Absolute Nucleated RBC Band Neutrophils % Nucleated RBC % Platelet Estimate % Immature Plt Fraction Hypochromasia Anisocytosis Ovalocytes Jensen Cells Schistocytes PT INR APTT Puncture Site ABG pH ABG pCO2 ABG pO2 ABG PO2/FiO2 Ratio ABG HCO3 ABG O2 Saturation ABG O2 Content ABG Base Excess A-a Gradient Oxyhemoglobin Carboxyhemoglobin Methemoglobin Reduced Hemoglobin Total Hemoglobin O2 Delivery Device O2 Liters/Min Minute Volume Vent Rate Vent Mode FiO2 Tidal Volume PEEP Peak Inspir Pressure Pressure Support Sodium Potassium Chloride Carbon Dioxide Anion Gap BUN Creatinine Estim Creat Clear Calc Estimated GFR Glucose POC Capillary Glucose 145 H 136 H Lactic Acid Calcium Phosphorus Magnesium Total Bilirubin AST ALT Alkaline Phosphatase Ammonia Total Creatine Kinase Total Protein Albumin Random Vancomycin 17.4 10/07/25 10/07/25 10/07/25 00:28 04:48 04:53 WBC 6.6 RBC 2.30 L Hgb 7.8 L Hct 25.2 L MCV 109.6 H MCH 33.9 MCHC 31.0 L RDW 15.5 H Plt Count 49 L MPV 9.9 Immature Gran % (Auto) 0.8 H Neut % (Auto) 74.9 H Lymph % (Auto) 10.5 L [place] % (Auto) 10.9 H Eos % (Auto) 2.6 Baso % (Auto) 0.3 Lymph # (Auto) 0.69 L [place] # (Auto) 0.7 H Eos # (Auto) 0.2 Baso # (Auto) 0.0 Abs Immat Gran (auto) 0.05 H Absolute Neuts (auto) 4.9 Absolute Nucleated RBC 0.000 Band Neutrophils % Not Reportable Nucleated RBC % 0.0 Platelet Estimate Decreased % Immature Plt Fraction 1.9 Hypochromasia 1+ Anisocytosis 1+ Ovalocytes Occasional Timmy Cells 1+ Schistocytes None seen PT 17.8 H INR 1.5 APTT 46.5 H Puncture Site Right radial ABG pH 7.392 ABG pCO2 36.9 ABG pO2 82.6 ABG PO2/FiO2 Ratio 2.75 ABG HCO3 21.9 L ABG O2 Saturation 96.1 ABG O2 Content 12.0 L ABG Base Excess -2.6 A-a Gradient 87.9 Oxyhemoglobin 94.6 Carboxyhemoglobin 1.4 Methemoglobin 0.0 Reduced Hemoglobin 4.0 Total Hemoglobin 8.9 L O2 Delivery Device Ventilator O2 Liters/Min Not Reportable Minute Volume Not Reportable Vent Rate 22 Vent Mode Cmv FiO2 30 Tidal Volume 500 PEEP 10 Peak Inspir Pressure Not Reportable Pressure Support Not Reportable Sodium 141 Potassium 4.8 Chloride 112 H Carbon Dioxide 23 Anion Gap 6 BUN 55 H Creatinine 3.94 H Estim Creat Clear Calc 29 Estimated GFR 15 L Glucose 118 H POC Capillary Glucose 124 H Lactic Acid 1.4 Calcium 8.4 Phosphorus 5.3 H Magnesium 2.1 Total Bilirubin 4.9 H AST 101 H ALT 24 Alkaline Phosphatase 85 Ammonia Total Creatine Kinase 463 H Total Protein 7.8 Albumin 3.5 Random Vancomycin 10/07/25 10/07/25 10/07/25 06:15 08:17 11:26 WBC RBC Hgb Hct MCV MCH MCHC RDW Plt Count MPV Immature Gran % (Auto) Neut % (Auto) Lymph % (Auto) [place] % (Auto) Eos % (Auto) Baso % (Auto) Lymph # (Auto) [place] # (Auto) Eos # (Auto) Baso # (Auto) Abs Immat Gran (auto) Absolute Neuts (auto) Absolute Nucleated RBC Band Neutrophils % Nucleated RBC % Platelet Estimate % Immature Plt Fraction Hypochromasia Anisocytosis Ovalocytes [place] Cells Schistocytes PT INR APTT Puncture Site ABG pH ABG pCO2 ABG pO2 ABG PO2/FiO2 Ratio ABG HCO3 ABG O2 Saturation ABG O2 Content ABG Base Excess A-a Gradient Oxyhemoglobin Carboxyhemoglobin Methemoglobin Reduced Hemoglobin Total Hemoglobin O2 Delivery Device O2 Liters/Min Minute Volume Vent Rate Vent Mode FiO2 Tidal Volume PEEP Peak Inspir Pressure Pressure Support Sodium Potassium Chloride Carbon Dioxide Anion Gap BUN Creatinine Estim Creat Clear Calc Estimated GFR Glucose POC Capillary Glucose 121 H 136 H Lactic Acid Calcium Phosphorus Magnesium Total Bilirubin AST ALT Alkaline Phosphatase Ammonia 35 H Total Creatine Kinase Total Protein Albumin Random Vancomycin
[2025-10-08] VITALS (33 sets, daily range): BP systolic 95–135; BP diastolic 44–74; PULSE 78–89; RESP 20–22; TEMP 36.8–37.3; O2SAT 91–96
[2025-10-08] MEDS: metroNIDAZOLE 500 MG/ISO 100ML 500 MG/100 ML BAG 100 MG IVPB ×3 (01:29→17:12)
[2025-10-08 04:33] LABS: Alveolar/Arterial O2 Gradient 72.3 mmHg; Carboxyhemoglobin 1.3 % THb (0-2.0); Fractional Inspired Oxygen 30 %; HCO3 ABG 21.4 mEq/l (22.0-26.0); Methemoglobin ABG 0.3 %THb (0-1.5); Oxygen Content ABG 12.2 %vol (16.0-22.0); Oxygen Saturation ABG 97.4 % (95.0-100.0); PCO2 ABG 36.6 mmHg (35.0-45.0); PO2 ABG 98.6 mmHg (80.0-100.0); PO2 FiO2 Ratio Arterial Blood 3.29 %; Reduced Hemoglobin 2.5 %THb (0-5.0)
[2025-10-08 04:36] LABS: Site Drawn RIGHT RADIAL
[2025-10-08 04:37] LABS: Arterial Blood Gas Tidal Volume 500 ml; Arterial Blood Gas Ventilator rate 22 /MIN; Modified Allen's Test Pass
[2025-10-08] MEDS: ALBUMIN HUMAN 25% 25 GM/100 ML 100 ML IVPB ×3 (05:16→17:50)
[2025-10-08] MEDS: CENTRAL LINE FLUSH 10 ML IV PUSH ×3 (05:17→21:37)
[2025-10-08 05:41] LABS: Hematocrit 24.9 % (42.0-52.0); Hemoglobin 7.7 g/dL (14.0-18.0); Immature Granulocyte Percent A 0.8 % (0-0.5); Immature Platelet Fraction Pct 2.2 % (0.9-11.2); Lymphocytes Absolute Auto 0.76 K/mm3 (0.9-3.2); Mean Corpuscular HGB Conc 30.9 g/dl (32-36); Mean Corpuscular Hemoglobin 34.1 pg (26-34); Mean Corpuscular Volume 110.2 fl (80-100); Nucleated Red Blood Cells Absolute Auto 0.020 K/mm3 (0.0-0.012); Nucleated Red Blood Cells Perc 0.3 % (0.0-0.2); Platelet Count Result 49 k/mm3 (150-375); Red Blood Count 2.26 M/mm3 (4.6-6.20); White Blood Count 7.4 K/mm3 (4.5-10.0)
[2025-10-08 05:58] LABS: INR 1.6; Prothrombin Time 18.7 Seconds (11.1-14.7)
[2025-10-08 05:59] LABS: Partial Thromboplastin Time 44.5 Seconds (22.3-36.8)
[2025-10-08 06:17] LABS: Alanine Aminotransferase 23 U/L (6-50); Albumin Level 3.6 g/dL (3.5-5.1); Alkaline Phosphatase 76 U/L (38-126); Anion Gap 7 mmol/L (4-12); Aspartate Amino Transferase 85 U/L (17-59); Bilirubin,Total 5.1 mg/dL (0.2-1.3); Blood Urea Nitrogen 64 mg/dL (9-20); Calcium 8.5 mg/dL (8.4-10.2); Carbon Dioxide 24 mmol/L (22-30); Chloride 111 mmol/L (98-107); Estimated CRCL calculation 26 ml/min; Estimated Glomerular Filt Rate 14; Glucose 124 mg/dL (65-110); Magnesium 2.2 mg/dL (1.6-2.3); Potassium 4.8 mmol/L (3.4-5.0); Sodium 142 mmol/L (137-145); Total Protein 7.8 g/dL (6.3-8.2)
[2025-10-08 06:40] LABS: Hypochromasia 1+
[2025-10-08 06:41] LABS: Macrocytosis 1+ (NORMAL); Ovalocytes Occasional; Schistocytes Occasional; Tear Drop Cells 1+
[2025-10-08] MEDS: CEFEPIME 1 GM in SODIUM CHLORIDE 0.9% IV 50 ML 100 ML IVPB ×2 (08:36→21:43)
[2025-10-08] MEDS: AZITHROMYCIN 250 MG/NS 250 ML 250 MG/250 ML BAG IVPB (08:36)
[2025-10-08] MEDS: METOCLOPRAMIDE HCL 10 MG TABLET FEED TUBE ×3 (08:36→17:50)
[2025-10-08] MEDS: ASPIRIN 81 MG CHEWABLE TABLET PO (08:36)
[2025-10-08] MEDS: FUROSEMIDE INJ 100 MG/10 ML VIAL 80 MG IV PUSH ×2 (08:37→17:11)
[2025-10-08] MEDS: MINERAL OIL/WHITE PETROLATUM OINTMENT 1 APPLIC EACH EYE ×2 (08:37→21:37)
[2025-10-08] MEDS: LACTULOSE 20 GM/30 ML UDC FEED TUBE ×2 (08:37→17:12)
[2025-10-08] MEDS: THIAMINE HCL 200 MG/2 ML VIAL 100 MG IV PUSH (08:38)
[2025-10-08] MEDS: PANTOPRAZOLE SODIUM IV 40 MG VIAL IV PUSH ×2 (08:38→21:37)
--- NOTE | 2025-10-08 09:05 | WPDINTPN2 ---
Subjective Date/time seen: 10/08/25 Overnight events reviewed. Afebrile Continues to be on mechanical ventilation 30% FiO2 Off vasopressors Continues to be sedated with low-dose fentanyl Improved urine output with diuretics. Other Vitals acceptable Interval history: Reason for consult: Septic shock, pneumonia, pulmonary vascular congestion, colitis, acute kidney injury Exam Narrative: General: Intubated, sedated, in no acute distress HEENT:? Pupils equal and reactive, sclera is icteric, ETT in place Neck:? Thick neck, right IJ central line in place Respiratory:? Coarse breath sounds bilaterally, decreased at bases, no wheezing Cardiac:? S1-S2 is normal, sinus tachycardia, 2/6 ejection systolic murmur in the aortic area Abdomen:? Soft, nontender, nondistended, obese, hypoactive bowel sounds, thickening of the skin on the lower part of the abdomen with no redness but warm Extremities:? Bilateral lower extremity pitting edema, dopplerable pedal pulses Neuro:? Patient is intubated, sedated, does not open his eyes or follows simple commands. Patient does does not withdraw to pain Skin:? Chronic venous stasis changes and chronic skin discoloration which is likely due to diabetes according the . Patient also has a callus on the ball of the right toe Psych:? Unable to assess at this time Objective Data Vital Signs Vital Signs: Vital Signs - 24 hr 10/07/25 10:00 10/07/25 10:00 10/07/25 10:00 Temperature 36.8 C Pulse Rate 82 81 81 Respiratory Rate 22 H 22 H 22 H Blood Pressure 112/58 L Pulse Oximetry 91 Oxygen Delivery Fraction of Inspired Oxygen 10/07/25 10:00 10/07/25 10:00 10/07/25 10:56 Temperature Pulse Rate 81 81 81 Respiratory Rate Blood Pressure 119/59 L Pulse Oximetry 92 Oxygen Delivery Mechanical Ventilation Fraction of Inspired Oxygen 30 10/07/25 11:10/07/25 12:00 10/07/25 12:00 Temperature 36.9 C 36.9 C Pulse Rate 81 79 Respiratory Rate 22 H 22 H Blood Pressure 115/57 L 114/58 L Pulse Oximetry 93 93 93 Oxygen Delivery Mechanical Ventilation Fraction of Inspired Oxygen 30 10/07/25 12:00 10/07/25 12:00 10/07/25 12:00 Temperature Pulse Rate 80 79 Respiratory Rate 22 H Blood Pressure Pulse Oximetry Oxygen Delivery Fraction of Inspired Oxygen 30 10/07/25 12:00 10/07/25 12:00 10/07/25 13:00 Temperature 37.0 C Pulse Rate 80 79 92 Respiratory Rate 22 H 22 H Blood Pressure 111/56 L 119/57 L Pulse Oximetry 93 Oxygen Delivery Fraction of Inspired Oxygen 10/07/25 13:38 10/07/25 14:00 10/07/25 14:00 Temperature 37.1 C Pulse Rate 79 79 79 Respiratory Rate 22 H Blood Pressure 113/58 L Pulse Oximetry 93 93 Oxygen Delivery Mechanical Ventilation Fraction of Inspired Oxygen 30 10/07/25 14:00 10/07/25 14:00 10/07/25 14:00 Temperature Pulse Rate 79 79 79 Respiratory Rate 22 H 22 H Blood Pressure 117/59 L Pulse Oximetry Oxygen Delivery Fraction of Inspired Oxygen 10/07/25 15:00 10/07/25 16:00 10/07/25 16:00 Temperature 37.2 C 37.2 C Pulse Rate 79 78 Respiratory Rate 22 H 25 H Blood Pressure 116/60 116/62 Pulse Oximetry 93 93 94 Oxygen Delivery Mechanical Ventilation Fraction of Inspired Oxygen 30 10/07/25 16:00 10/07/25 16:00 10/07/25 16:00 Temperature Pulse Rate 79 78 Respiratory Rate 22 H Blood Pressure Pulse Oximetry Oxygen Delivery Fraction of Inspired Oxygen 30 10/07/25 16:00 10/07/25 16:00 10/07/25 16:30 Temperature Pulse Rate 78 78 78 Respiratory Rate 22 H Blood Pressure 116/62 Pulse Oximetry 93 Oxygen Delivery Mechanical Ventilation Fraction of Inspired Oxygen 30 10/07/25 17:00 10/07/25 18:00 10/07/25 18:00 Temperature 37.2 C Pulse Rate 78 92 92 Respiratory Rate 22 H 22 H 22 H Blood Pressure 114/57 L Pulse Oximetry 94 Oxygen Delivery Fraction of Inspired Oxygen 10/07/25 18:00 10/07/25 18:00 10/07/25 18:00 Temperature 37.1 C Pulse Rate 92 82 82 Respiratory Rate 22 H Blood Pressure 106/56 L 106/56 L Pulse Oximetry 92 Oxygen Delivery Fraction of Inspired Oxygen 10/07/25 19:00 10/07/25 20:00 10/07/25 20:00 Temperature 37.1 C Pulse Rate 81 92 92 Respiratory Rate 22 H 22 H 22 H Blood Pressure 114/62 Pulse Oximetry 93 Oxygen Delivery Fraction of Inspired Oxygen 10/07/25 20:00 10/07/25 20:00 10/07/25 20:00 Temperature 36.9 C Pulse Rate 92 92 Respiratory Rate 22 H Blood Pressure 120/71 120/71 Pulse Oximetry 94 94 Oxygen Delivery Mechanical Ventilation Fraction of Inspired Oxygen 30 10/07/25 20:00 10/07/25 20:00 10/07/25 20:06 Temperature Pulse Rate 83 83 Respiratory Rate Blood Pressure Pulse Oximetry 94 Oxygen Delivery Mechanical Ventilation Fraction of Inspired Oxygen 30 30 10/07/25 21:00 10/07/25 22:00 10/07/25 22:00 Temperature 37.2 C Pulse Rate 82 80 83 Respiratory Rate 22 H 220 H 22 H Blood Pressure 115/67 Pulse Oximetry 94 Oxygen Delivery Fraction of Inspired Oxygen 10/07/25 22:00 10/07/25 22:00 10/07/25 22:00 Temperature 37.3 C Pulse Rate 83 83 83 Respiratory Rate 22 H Blood Pressure 114/60 114/60 Pulse Oximetry 94 Oxygen Delivery Fraction of Inspired Oxygen 10/07/25 22:50 10/07/25 23:00 10/08/25 00:00 Temperature 37.3 C Pulse Rate 83 98 Respiratory Rate 22 H Blood Pressure 119/65 Pulse Oximetry 93 93 94 Oxygen Delivery Mechanical Ventilation Mechanical Ventilation Fraction of Inspired Oxygen 30 30 10/08/25 00:00 10/08/25 00:00 10/08/25 00:00 Temperature 37.3 C Pulse Rate 89 89 Respiratory Rate 22 H Blood Pressure 113/59 L Pulse Oximetry 94 Oxygen Delivery Fraction of Inspired Oxygen 30 10/08/25 00:00 10/08/25 00:00 10/08/25 00:00 Temperature Pulse Rate 89 89 89 Respiratory Rate 22 H 22 H Blood Pressure 113/59 L Pulse Oximetry Oxygen Delivery Fraction of Inspired Oxygen 10/08/25 01:00 10/08/25 01:39 10/08/25 02:00 Temperature 37.3 C Pulse Rate 88 82 84 Respiratory Rate 22 H 22 H Blood Pressure 112/63 Pulse Oximetry 94 95 Oxygen Delivery Mechanical Ventilation Fraction of Inspired Oxygen 30 10/08/25 02:00 10/08/25 02:00 10/08/25 02:00 Temperature Pulse Rate 84 84 84 Respiratory Rate 22 H Blood Pressure 121/74 Pulse Oximetry Oxygen Delivery Fraction of Inspired Oxygen 10/08/25 02:00 10/08/25 03:00 10/08/25 04:00 Temperature 37.3 C 37.3 C Pulse Rate 84 85 84 Respiratory Rate 22 H 22 H 22 H Blood Pressure 121/74 118/64 Pulse Oximetry 96 95 Oxygen Delivery Fraction of Inspired Oxygen 10/08/25 04:00 10/08/25 04:00 10/08/25 04:00 Temperature Pulse Rate 84 84 Respiratory Rate 22 H Blood Pressure 119/63 Pulse Oximetry 94 Oxygen Delivery Mechanical Ventilation Fraction of Inspired Oxygen 30 10/08/25 04:00 10/08/25 04:00 10/08/25 04:00 Temperature 37.3 C Pulse Rate 84 84 Respiratory Rate 22 H Blood Pressure 119/63 Pulse Oximetry 95 Oxygen Delivery Fraction of Inspired Oxygen 30 10/08/25 04:38 10/08/25 05:00 10/08/25 06:00 Temperature 37.3 C Pulse Rate 83 83 80 Respiratory Rate 22 H 22 H Blood Pressure 95/44 L Pulse Oximetry 95 94 Oxygen Delivery Mechanical Ventilation Fraction of Inspired Oxygen 30 10/08/25 06:00 10/08/25 06:00 10/08/25 06:00 Temperature Pulse Rate 80 80 80 Respiratory Rate 22 H Blood Pressure 106/53 L Pulse Oximetry Oxygen Delivery Fraction of Inspired Oxygen 10/08/25 06:00 10/08/25 07:00 10/08/25 07:05 Temperature 37.0 C 37.0 C Pulse Rate 80 86 86 Respiratory Rate 22 H 20 22 H Blood Pressure 106/53 L 115/56 L Pulse Oximetry 94 95 Oxygen Delivery Fraction of Inspired Oxygen 10/08/25 08:00 10/08/25 08:00 10/08/25 08:00 Temperature Pulse Rate 86 86 Respiratory Rate 22 H Blood Pressure Pulse Oximetry 96 Oxygen Delivery Mechanical Ventilation Fraction of Inspired Oxygen 30 30 10/08/25 08:00 10/08/25 08:09 Temperature 37.0 C Pulse Rate 86 86 Respiratory Rate 22 H Blood Pressure 124/62 Pulse Oximetry 96 95 Oxygen Delivery Mechanical Ventilation Fraction of Inspired Oxygen 30 Intake/Output Intake/Output: Intake & Output 10/05/25 10/06/25 10/07/25 10/08/25 23:59 23:59 23:59 23:59 Intake Total 3069.3 1516.7 1720.7 615.7 Output Total 700 600 580 650 Balance 2369.3 916.7 1140.7 -34.3 Meds/Results Medications: Active Medications Generic Name Dose Route Start Last Admin Trade Name Freq PRN Reason Stop Dose Admin Aspirin 81 mg 10/04/25 17:50 10/08/25 08:36 Aspirin 81 Mg Chewable Tablet PO 81 mg DAILY@0800 VIKA Administration Dextrose 12.5 gm 10/04/25 13:16 Dextrose 50% 25 Gm/50 Ml Syringe IV PUSH PRN PRN Hypoglycemia Protocol Furosemide 80 mg 10/08/25 09:00 10/08/25 08:37 Furosemide Inj 100 Mg/10 Ml Vial IV PUSH 80 mg BID VIKA Administration Glucagon 1 mg 10/04/25 13:16 Glucagon For Inj 1 Mg Vial IM PRN PRN Hypoglycemia Protocol Glucose 15 gm 10/04/25 13:16 Glucose Oral Gel 15 Gm Of Glucse In 37.5 Gm Tube PO PRN PRN Hypoglycemia Protocol Metronidazole 500 mg in 100 mls @ 100 mls/hr 10/04/25 17:00 10/08/25 08:37 Flagyl 500 Mg/Iso Soln 100 Ml IVPB 100 mls/hr Q8H VIKA Administration Albumin Human 100 mls @ 60 mls/hr 10/04/25 12:00 10/08/25 07:07 Albutein IVPB Infused Q6HR VIKA Infusion Azithromycin 250 mg in 250 mls @ 250 mls/hr 10/05/25 09:00 10/08/25 08:36 Zithromax IVPB 10/10/25 08:59 250 mls/hr Q24H VIKA Administration Dextrose 1,000 mls @ 100 mls/hr 10/04/25 13:16 Dextrose 5% 1,000 Ml IVPB PRN PRN Hypoglycemia Protocol Fentanyl Citrate 2,500 mcg in 250 mls @ 0 mls/hr 10/04/25 19:45 10/08/25 07:05 Fentanyl 2,500 Mcg/Ns 250 Ml IV CONT 0 mcg/hr On Hold: 10/08/25 08:04 .Q0M VIKA 0 mls/hr Protocol Titration 0 MCG/HR Cefepime HCl 1 gm/ Sodium 50 mls @ 100 mls/hr 10/08/25 09:00 10/08/25 08:36 Chloride IVPB 100 mls/hr Q12H VIKA Administration Insulin Aspart 3 - 6 units 10/04/25 18:00 10/08/25 06:20 Insulin Aspart (*Bkc) 100 Units/Ml SUB-Q Not Given Q6HR [facility] Protocol Ipratropium [place] 0.5 mg 10/07/25 07:43 Ipratropium Br 0.02% Inh Soln 0.5 Mg/2.5 Ml Vial INHALATION Q6HRT PRN Wheezing Lactulose 20 gm 10/08/25 09:00 10/08/25 08:37 Lactulose 20 Gm/30 Ml Udc FEED TUBE 20 gm BID VIKA Administration Levalbuterol HCl 0.63 mg 10/07/25 07:44 Levalbuterol Neb 1.25 Mg/3 Ml INHALATION Q6HRT PRN Wheezing Metoclopramide HCl 10 mg 10/08/25 08:05 10/08/25 08:36 Metoclopramide Hcl 10 Mg Tablet FEED TUBE 10 mg Q6HR VIKA Administration Multi-Ingred Cream/Lotion/Oil/Oint 1 applic 10/07/25 09:00 10/08/25 08:37 Mineral Oil/White Petrolatum Ointment EACH EYE 1 applic Q12HR VIKA Administration Pantoprazole Sodium 40 mg 10/04/25 21:00 10/08/25 08:38 Pantoprazole Sodium Iv 40 Mg Vial IV PUSH 40 mg Q12HR VIKA Administration Sodium Chloride 10 ml 10/04/25 14:00 10/08/25 05:17 Central Line Flush IV PUSH 10 ml Q8HR VIKA Administration Sodium Chloride 20 ml 10/04/25 09:27 Central Line Flush IV PUSH PRN PRN after blood draws Thiamine HCl 100 mg 10/05/25 09:00 10/08/25 08:38 Thiamine Hcl 200 Mg/2 Ml Vial IV PUSH 100 mg QAM VIKA Administration Radiology Results: ITS Impressions Head CT 10/04/25 07:09 IMPRESSION: 1. No acute intracranial findings. Chest/Abdomen/Pelvis CT 10/04/25 07:26 IMPRESSION: CHEST- 1. Interstitial pulmonary edema and small right pleural effusion. 2. Superimposed pneumonitis or interstitial lung disease not excluded. ABDOMEN/PELVIS- 1. Colonic hepatic flexure wall thickening. Colitis and/or malignancy. 2. Additional findings as above. Renal Ultrasound 10/05/25 13:44 Impression: 1: Unremarkable renal ultrasound. No stones, masses or hydronephrosis. 2: Splenomegaly. 3: Ascites. Chest X-Ray 10/08/25 08:20 Impression: CHF. Superimposed probable pneumonia. The findings appear relatively unchanged Labs Labs: Laboratory Results - last 24 hr 10/07/25 10/07/25 10/07/25 11:26 18:03 23:51 WBC RBC Hgb Hct MCV MCH MCHC RDW Plt Count MPV Immature Gran % (Auto) Neut % (Auto) Lymph % (Auto) [place] % (Auto) Eos % (Auto) Baso % (Auto) Lymph # (Auto) [place] # (Auto) Eos # (Auto) Baso # (Auto) Abs Immat Gran (auto) Absolute Neuts (auto) Absolute Nucleated RBC Band Neutrophils % Nucleated RBC % Platelet Estimate % Immature Plt Fraction Hypochromasia Macrocytosis Tear Drop Cells Ovalocytes Schistocytes PT INR APTT Puncture Site ABG pH ABG pCO2 ABG pO2 ABG PO2/FiO2 Ratio ABG HCO3 ABG O2 Saturation ABG O2 Content ABG Base Excess A-a Gradient Oxyhemoglobin Carboxyhemoglobin Methemoglobin Reduced Hemoglobin Total Hemoglobin O2 Delivery Device O2 Liters/Min Minute Volume Vent Rate Vent Mode FiO2 Tidal Volume PEEP Peak Inspir Pressure Pressure Support Sodium Potassium Chloride Carbon Dioxide Anion Gap BUN Creatinine Estim Creat Clear Calc Estimated GFR Glucose POC Capillary Glucose 136 H 105 130 H Lactic Acid Calcium Phosphorus Magnesium Total Bilirubin AST ALT Alkaline Phosphatase Total Protein Albumin 10/08/25 10/08/25 04:23 05:20 WBC 7.4 RBC 2.26 L Hgb 7.7 L Hct 24.9 L MCV 110.2 H MCH 34.1 H MCHC 30.9 L RDW 15.6 H Plt Count 49 L MPV 10.4 Immature Gran % (Auto) 0.8 H Neut % (Auto) 76.6 H Lymph % (Auto) 10.3 L [place] % (Auto) 8.5 Eos % (Auto) 3.4 Baso % (Auto) 0.4 Lymph # (Auto) 0.76 L [place] # (Auto) 0.6 Eos # (Auto) 0.3 Baso # (Auto) 0.0 Abs Immat Gran (auto) 0.06 H Absolute Neuts (auto) 5.6 Absolute Nucleated RBC 0.020 H Band Neutrophils % Not Reportable Nucleated RBC % 0.3 H Platelet Estimate Decreased % Immature Plt Fraction 2.2 Hypochromasia 1+ Macrocytosis 1+ Tear Drop Cells 1+ Ovalocytes Occasional Schistocytes Occasional PT 18.7 H INR 1.6 APTT 44.5 H Puncture Site Right radial ABG pH 7.384 ABG pCO2 36.6 ABG pO2 98.6 ABG PO2/FiO2 Ratio 3.29 ABG HCO3 21.4 L ABG O2 Saturation 97.4 ABG O2 Content 12.2 L ABG Base Excess -3.3 A-a Gradient 72.3 Oxyhemoglobin 95.9 Carboxyhemoglobin 1.3 Methemoglobin 0.3 Reduced Hemoglobin 2.5 Total Hemoglobin 8.9 L O2 Delivery Device Ventilator O2 Liters/Min Not Reportable Minute Volume Not Reportable Vent Rate 22 Vent Mode Cmv FiO2 30 Tidal Volume 500 PEEP 10 Peak Inspir Pressure Not Reportable Pressure Support Not Reportable Sodium 142 Potassium 4.8 Chloride 111 H Carbon Dioxide 24 Anion Gap 7 BUN 64 H Creatinine 4.39 H Estim Creat Clear Calc 26 Estimated GFR 14 L Glucose 124 H POC Capillary Glucose Lactic Acid 1.3 Calcium 8.5 Phosphorus 5.6 H Magnesium 2.2 Total Bilirubin 5.1 H AST 85 H ALT 23 Alkaline Phosphatase 76 Total Protein 7.8 Albumin 3.6 Assessment and Plan Assessment and Plan (1) Acute respiratory failure: Code(s): J96.00 - Acute respiratory failure, unspecified whether with hypoxia or hypercapnia Status: Acute Assessment and Plan: 10/04: Patient presented the ED via EMS with complains of generalized weakness, fevers, shortness of breath and fever. When EMS arrived to his house he was found on the ground, unable to get up off the floor. Patient's O2 sats were in the 80s on room air. Patient was placed on supplemental oxygen. In the ED patient was awake, alert, oriented was able to answer questions. O2 sats were improved but he was hypotensive, once he was given IV fluids per sepsis protocol he was more short of breath and was intubated -10/04: Intubated in the ER for impending respiratory failure likely related to CHF -currently CMV mode of ventilation,PEEP to 10 30% FiO2 -chest x-ray shows pulmonary congestion and ABGs reviewed -wean FiO2 to maintain O2 sats > 92% -continue bronchodilators -sedated with fentany infusion, maintain RASS of 0 to -2 -sedation holiday -10/07 since patient is off of vasopressors. I will start patient on Lasix. Patient will need diuresis secondary to volume overload before weaning trial 10/08 Continue Lasix and diuresis. Sedation holiday (2) Septic shock: Code(s): A41.9 - Sepsis, unspecified organism; R65.21 - Severe sepsis with septic shock Status: Acute Assessment and Plan: Patient with hypotension, likely related to pneumonia, possible lower abdomen cellulitis as seen on the CT scan. Could be related to heart failure -10/04: patient received 3.5 L IV fluid bolus in the ER, despite which his blood pressures remain low, is right-sided IJ central line was inserted, patient started on Levophed Off vasopressors now Overall volume overloaded hence off IV fluids Continue cefepime, metronidazole and azithromycin (10/04). DC vancomycin (10/07) -10/04: Blood cultures have been obtained and pending -10/04: Urine cultures obtained and pending -10/04: sputum culture obtained and pending -10/04: Obtain urine Legionella and strep pneumo antigen, pending 01/16/2025: Echocardiogram Summary 1. Left ventricular chamber dimension is normal. 2. Left ventricular systolic function is normal, estimated at 65-70%. 3. There is mildly increased left ventricular wall thickness. 4. The left ventricular diastolic function is grade I diastolic dysfunction. 5. Right ventricular systolic function is normal. 6. Left atrial chamber dimension is moderately enlarged. 7. Right atrial chamber dimension is moderately enlarged. 8. There is moderate aortic valve calcification. 9. There is moderate to severe aortic valve stenosis with a peak velocity of407 cm/s, mean gradient of 43 mmHg, and aortic valve area of 1.2 cm2. 10. There is mild aortic valve regurgitation. 11. There is mild to moderate tricuspid valve regurgitation. 12. Pulmonary hypertension, estimated pulmonary arterial systolic pressure is 48 mmHg. (3) MARIO (acute kidney injury): Code(s): N17.9 - Acute kidney failure, unspecified Status: Acute Assessment and Plan: Acute kidney injury, creatinine 1.83 on admission, (1.87-2.19 in January of 2025, prior to that patient's creatinine was 1.10-1.20 in March of 2023) -patient received 3.5 L of IV fluid bolus in the ER and albumin. Off further IV fluids -10/08 patient was given Lasix over last 24 hours with improved urine output although creatinine continues to increase slightly to 4.39. Continue Lasix. Will discuss with Nephrology. May issue and may still need dialysis although no emergent indication for dialysis at this time. - Nephrology following. -continue to monitor renal function, electrolytes and urine output -10/05/2025: Renal ultrasound did not show any stones, masses or hydronephrosis. Showed splenomegaly, ascites (4) Acute CHF: Code(s): I50.9 - Heart failure, unspecified Status: Acute Assessment and Plan: Patient has history of CHF, he does take furosemide at home, echocardiogram as above -chest x-ray shows pulmonary vascular congestion after receiving IV fluid -echo as above, diastolic heart failure (5) DM2 (diabetes mellitus, type 2): Code(s): E11.9 - Type 2 diabetes mellitus without complications Status: Chronic Assessment and Plan: Accu-Cheks and sliding scale insulin (6) Thrombocytopenia: Code(s): D69.6 - Thrombocytopenia, unspecified Status: Acute Assessment and Plan: Chronic thrombocytopenia could be related to cirrhosis, alcohol use -patient was evaluated by Oncology on 01/28/2023 -platelets low but stable. Continue to monitor, -will transfuse if needed (7) Cirrhosis: Code(s): K74.60 - Unspecified cirrhosis of liver Status: Acute Assessment and Plan: CT scan of the abdomen and pelvis showed spleen enlargement and cirrhosis -patient also has anasarca -elevated bilirubin -appreciate GI evaluation recommendation Start lactulose for elevated ammonia (8) Anasarca: Code(s): R60.1 - Generalized edema Status: Acute Assessment and Plan: Likely related to cirrhosis and congestive heart failure Lasix (9) GI bleed: Code(s): K92.2 - Gastrointestinal hemorrhage, unspecified Status: Acute Assessment and Plan: OG tube has blood draining, could be related to trauma secondary to OG tube placement or variceal bleed or gastritis as patient has cirrhosis -Protonix IV q.12 hours -appreciate GI evaluation, no more GI bleeding noted from the OG tube -patient does have cirrhosis, MELD score of 26 (10) Anemia: Code(s): D64.9 - Anemia, unspecified Status: Acute Assessment and Plan: Patient also has anemia with hemoglobin of 10.7 (which is close to his baseline) -will continue to monitor, hemoglobin gradually decreasing,, continue to monitor - transfuse for hemoglobin < 7.0 (11) Aortic stenosis: Code(s): I35.0 - Nonrheumatic aortic (valve) stenosis Status: Acute Assessment and Plan: Moderate to severe aortic valve stenosis with mean gradient of 43 mmHg and aortic valve area of 1.2 cm2 -will be cautious with IV fluids -repeat echocardiogram as above (12) NSTEMI (non-ST elevated myocardial infarction): Code(s): I21.4 - Non-ST elevation (NSTEMI) myocardial infarction Status: Acute Assessment and Plan: 10/04: Troponins were 4.720, 8.720 and 13.00. -cardiology was consulted, recommended starting heparin infusion -10/05: Heparin infusion was discontinued as this was thought to be secondary to type 2 myocardial infarction secondary to anemia, hypotension, respiratory failure and septic shock. -appreciate cardiology evaluation recommendation, no intervention at this time Plan DVT prophylaxis: SCDs, no chemoprophylaxis due to thrombocytopenia, anemia, patient also had bloody drainage from his OG tube on admission which has cleared up Stress ulcer prophylaxis: Protonix IV q.12 hours Nutrition: Advance tube feeds Code Status: Full code Critical Care Time Spent: 35 minutes Due to a high probability of clinically significant, life threatening deterioration, the patient required my highest level of preparedness to intervene emergently and I personally spent this critical care time directly and personally managing the patient. This critical care time included obtaining a history; examining the patient; pulse oximetry; ordering and review of studies; arranging urgent treatment with development of a management plan; evaluation of patient's response to treatment; frequent reassessment; and discussions with other providers. It was exclusive of separately billable procedures and treating other patients and teaching time. Please see Assessment and Plan section and the rest of the note for further information on patient assessment and treatment This dictation may have been done utilizing a voice recognition system. Attempts have been made to correct errors. However, there may be uncorrected grammatical, spelling, and recognitions errors present. Quality VTE Prophylaxis VTE prophylaxis: mechanical ordered
--- NOTE | 2025-10-08 09:15 | P.PNNP_ITS ---
Progress Note: A&P Assessment and Plan (1) Acute kidney injury: Code(s): N17.9 - Acute kidney failure, unspecified Status: Acute Assessment and Plan: * as noted by labs on 10/05 (creatinine up to 2.87mg/dL) * admission creatinine at baseline * now complicated by diminished urine output and volume overload * suspect multifactorial etiology: * hemodynamic instability/shock * infection/sepsis * hypoxia * cocaine use * CHF * rhabdomyolysis * NSTEMI * pre renal factors * other(?) * evaluation to date noted: * renal ultrasound shows normal kidneys * CK was elevated but trending down (although was high enough to cause damage to the kidneys) * UA shows blood protein and red cells * urine electrolytes (FeNA & FeUrea) reflect a pre renal state * urine eosinophils negative * moderate proteinuria * trial of IV diuretics * still remains at risk for [employer]/dialysis * however, no urgent need at this time * follow trend of repeat labs and UOP (2) Stage 3b chronic kidney disease: Code(s): N18.32 - Chronic kidney disease, stage 3b Status: Chronic Assessment and Plan: * creatinine 1.87mg/dL ~ 8 months ago on hospital discharge * was fluctuating 1.8 - 2.2mg/dL in the context of IV diuresis in January 2025 * prior to that, creatinine was ~ 1.1 - 1.2 in March of 2023 * presumably due to combination of diuretic use for CHF, diabetes, and hypertension +/- vascular disease (3) Septic shock: Code(s): A41.9 - Sepsis, unspecified organism; R65.21 - Severe sepsis with septic shock Status: Acute Assessment and Plan: * presented with hypotension unresponsive to IVF resuscitation * s/p 3.5L IVFs with no improvement in blood pressure * s/p RIJ central line placement and initiation of vasopressor therapy * suspected source include pneumonia, lower abdominal wall cellulitis, and/or heart failure * follow culture data (blood, sputum, and urine) * negative to date * lactic acid hasnormalized * cultures negative so far * weaned off vasopressor therapy * on antibiotics (4) Acute respiratory failure: Code(s): J96.00 - Acute respiratory failure, unspecified whether with hypoxia or hypercapnia Status: Acute Assessment and Plan: * intubated in ER for impending respiratory failure * noted hypoxia * worsening SOB with IVF resuscitation * decline in respiratory status felt to be secondary to CHF +/- pnuemonia * on bronchodilator therapy * ventilator weaning as tolerated (5) Acute CHF: Code(s): I50.9 - Heart failure, unspecified Status: Acute Assessment and Plan: * known history * admission CXR with pulmonary vascular congestion * last Echo (01/16/25) noted: * left ventricular systolic function is normal, estimated at 65 - 70% * left ventricular diastolic function is grade I diastolic dysfunction * moderate to severe aortic valve stenosis with a peak velocity of 407 cm/s, mean gradient of 43 mmHg, and aortic valve area of 1.2 cm2 * mild aortic valve regurgitation * mild to moderate tricuspid valve regurgitation * pulmonary hypertension, estimated pulmonary arterial systolic pressure is 48 mmHg * repeat Echo (10/05/25) reviewed: * left ventricular systolic function is normal, estimated at 55 - 60% * left ventricular diastolic function is abnormal * severe aortic valve stenosis with a peak velocity of 435 cm/s, mean gradient of 43 mmHg, and aortic valve area of 0.9 cm2 * mild to moderate aortic valve regurgitation * mild mitral valve regurgitation * mild to moderate tricuspid valve regurgitation * moderate pulmonary hypertension, estimated pulmonary arterial systolic pressure is 56 mmHg * trace pulmonic regurgitation * with better hemodynamics, started on IV diuresis * follow I/Os, daily weights, and respiratory status * Cardiology following (6) Anasarca: Code(s): R60.1 - Generalized edema Status: Acute Assessment and Plan: * likely a combination of CHF , MARIO, and liver cirrhosis/hypoalbuminemia * Echo as noted (see #5) * attempting diuresis given better hemodynamics (7) Cirrhosis: Code(s): K74.60 - Unspecified cirrhosis of liver Status: Acute Assessment and Plan: * as noted by CT imaging: * noted spleen enlargement and cirrhosis * also with anasarca * trend bilirubin and LFTs * GI following (8) Anemia: Code(s): D64.9 - Anemia, unspecified Status: Acute Assessment and Plan: * as noted * concern for GI loss given bleeding noted from OG tube * this appears to have resolved * suspect related to MARIO, CKD, and liver disease/cirrhosis * PRBC transfusion per protocol * consider PATRICIA given #1 and #2 (9) Thrombocytopenia: Code(s): D69.6 - Thrombocytopenia, unspecified Status: Acute Assessment and Plan: * chronic issue * saw Heme/Onc in the past and this is felt to be related to cirrhosis and alcohol use * platelet transfusion PRN (10) DM2 (diabetes mellitus, type 2): Code(s): E11.9 - Type 2 diabetes mellitus without complications Status: Chronic Assessment and Plan: * follow accu-cheks * glycemic control per block inspector/hospitalist Will continue to follow. L Subjective Date/time seen: 10/08/25 09:15 Interval history: Follow-up for acute kidney injury/acute renal failure on chronic kidney disease. Chart reviewed since last seen -- remains intubated/sedated and on mechanical ventilation; however, off vasopressor therapy with relative stability in hemodynamics; better urine output noted in response to IV diuretics given yesterday; renal function/creatinine worse by AM labs; at bedside and we discussed the situation. Exam 2 Narrative: General: WD/WN male intubated/sedated on mechanical ventilation Heart: normal S1 and S2; no rub Lungs: coarse breath soinds Abdomen: soft, nontender, nondistended, positive bowel sounds Extremities: no cyanosis or clubbing; 1+ edema Skin: chronic venous stasis/skin changes noted Objective Data Vital Signs Vital Signs: Vital Signs Temp Pulse Resp BP Pulse Ox O2 Del Method FiO2 10/08/25 09:00 98.3 F 82 22 H 121/57 L 91 10/08/25 08:09 86 95 Mechanical Ventilation 30 10/08/25 08:00 82 22 H 10/08/25 08:00 98.6 F 86 22 H 124/62 96 10/08/25 08:00 30 10/08/25 08:00 86 10/08/25 08:00 86 22 H 96 Mechanical Ventilation 30 10/08/25 07:05 86 22 H 10/08/25 07:00 98.6 F 86 20 115/56 L 95 10/08/25 06:00 98.6 F 80 22 H 106/53 L 94 10/08/25 06:00 80 10/08/25 06:00 80 106/53 L 10/08/25 06:00 80 22 H 10/08/25 06:00 80 22 H 10/08/25 05:00 99.2 F 83 22 H 95/44 L 94 10/08/25 04:38 83 95 Mechanical Ventilation 30 10/08/25 04:00 99.1 F 84 22 H 119/63 95 10/08/25 04:00 84 10/08/25 04:00 30 10/08/25 04:00 94 Mechanical Ventilation 30 10/08/25 04:00 84 22 H 10/08/25 04:00 84 119/63 10/08/25 04:00 84 22 H 10/08/25 03:00 99.1 F 85 22 H 118/64 95 10/08/25 02:00 99.2 F 84 22 H 121/74 96 10/08/25 02:00 84 10/08/25 02:00 84 22 H 10/08/25 02:00 84 121/74 10/08/25 02:00 84 22 H 10/08/25 01:39 82 95 Mechanical Ventilation 30 10/08/25 01:00 99.1 F 88 22 H 112/63 94 10/08/25 00:00 89 22 H 10/08/25 00:00 89 113/59 L 10/08/25 00:00 89 22 H 10/08/25 00:00 99.1 F 89 22 H 113/59 L 94 10/08/25 00:00 89 10/08/25 00:00 30 10/08/25 00:00 94 Mechanical Ventilation 30 10/07/25 23:00 99.1 F 98 22 H 119/65 93 10/07/25 22:50 83 93 Mechanical Ventilation 30 10/07/25 22:00 83 10/07/25 22:00 99.1 F 83 22 H 114/60 94 10/07/25 22:00 83 114/60 10/07/25 22:00 83 22 H 10/07/25 22:00 80 220 H 10/07/25 21:00 98.9 F 82 22 H 115/67 94 10/07/25 20:06 83 94 Mechanical Ventilation 30 10/07/25 20:00 83 10/07/25 20:00 30 10/07/25 20:00 94 Mechanical Ventilation 30 10/07/25 20:00 98.5 F 92 22 H 120/71 94 10/07/25 20:00 92 120/71 10/07/25 20:00 92 22 H 10/07/25 20:00 92 22 H 10/07/25 19:00 98.7 F 81 22 H 114/62 93 10/07/25 18:00 98.8 F 82 22 H 106/56 L 92 10/07/25 18:00 82 10/07/25 18:00 92 106/56 L 10/07/25 18:00 92 22 H 10/07/25 18:00 92 22 H 10/07/25 17:00 98.9 F 78 22 H 114/57 L 94 10/07/25 16:30 78 93 Mechanical Ventilation 30 10/07/25 16:00 78 116/62 10/07/25 16:00 78 22 H 10/07/25 16:00 78 22 H 10/07/25 16:00 30 10/07/25 16:00 79 10/07/25 16:00 94 Mechanical Ventilation 30 10/07/25 16:00 99.0 F 78 25 H 116/62 93 10/07/25 15:00 98.9 F 79 22 H 116/60 93 10/07/25 14:00 79 117/59 L 10/07/25 14:00 79 22 H 10/07/25 14:00 79 22 H 10/07/25 14:00 98.8 F 79 22 H 113/58 L 93 10/07/25 14:00 79 10/07/25 13:38 79 93 Mechanical Ventilation 30 10/07/25 13:00 98.6 F 92 22 H 119/57 L 93 Intake/Output Intake/Output: Intake & Output 10/05/25 10/06/25 10/07/25 10/08/25 23:59 23:59 23:59 23:59 Intake Total 3069.3 1516.7 1720.7 1015.7 Output Total 700 600 580 650 Balance 2369.3 916.7 1140.7 365.7 Meds/Results Medications: Active Medications Generic Name Dose Route Start Last Admin Trade Name Freq PRN Reason Stop Dose Admin Aspirin 81 mg 10/04/25 17:50 10/08/25 08:36 Aspirin 81 Mg Chewable Tablet PO 81 mg DAILY@0800 VIKA Administration Dextrose 12.5 gm 10/04/25 13:16 Dextrose 50% 25 Gm/50 Ml Syringe IV PUSH PRN PRN Hypoglycemia Protocol Furosemide 80 mg 10/08/25 09:00 10/08/25 08:37 Furosemide Inj 100 Mg/10 Ml Vial IV PUSH 80 mg BID VIKA Administration Glucagon 1 mg 10/04/25 13:16 Glucagon For Inj 1 Mg Vial IM PRN PRN Hypoglycemia Protocol Glucose 15 gm 10/04/25 13:16 Glucose Oral Gel 15 Gm Of Glucse In 37.5 Gm Tube PO PRN PRN Hypoglycemia Protocol Metronidazole 500 mg in 100 mls @ 100 mls/hr 10/04/25 17:00 10/08/25 09:37 Flagyl 500 Mg/Iso Soln 100 Ml IVPB 10/11/25 01:59 Infused Q8H VIKA Infusion Albumin Human 100 mls @ 60 mls/hr 10/04/25 12:00 10/08/25 07:07 Albutein IVPB Infused Q6HR VIKA Infusion Dextrose 1,000 mls @ 100 mls/hr 10/04/25 13:16 Dextrose 5% 1,000 Ml IVPB PRN PRN Hypoglycemia Protocol Fentanyl Citrate 2,500 mcg in 250 mls @ 0 mls/hr 10/04/25 19:45 10/08/25 08:00 Fentanyl 2,500 Mcg/Ns 250 Ml IV CONT 0 mcg/hr On Hold: 10/08/25 08:04 .Q0M VIKA 0 mls/hr Protocol Titration 0 MCG/HR Cefepime HCl 1 gm/ Sodium 50 mls @ 100 mls/hr 10/08/25 09:00 10/08/25 09:06 Chloride IVPB 10/10/25 21:29 Infused Q12H VIKA Infusion Insulin Aspart 3 - 6 units 10/04/25 18:00 10/08/25 11:36 Insulin Aspart (*Bkc) 100 Units/Ml SUB-Q Not Given Q6HR VIAK Protocol Ipratropium [place] 0.5 mg 10/07/25 07:43 Ipratropium Br 0.02% Inh Soln 0.5 Mg/2.5 Ml Vial INHALATION Q6HRT PRN Wheezing Lactulose 20 gm 10/08/25 09:00 10/08/25 08:37 Lactulose 20 Gm/30 Ml Udc FEED TUBE 20 gm BID VIKA Administration Levalbuterol HCl 0.63 mg 10/07/25 07:44 Levalbuterol Neb 1.25 Mg/3 Ml INHALATION Q6HRT PRN Wheezing Metoclopramide HCl 10 mg 10/08/25 08:05 10/08/25 08:36 Metoclopramide Hcl 10 Mg Tablet FEED TUBE 10 mg Q6HR VIKA Administration Multi-Ingred Cream/Lotion/Oil/Oint 1 applic 10/07/25 09:00 10/08/25 08:37 Mineral Oil/White Petrolatum Ointment EACH EYE 1 applic Q12HR VIKA Administration Pantoprazole Sodium 40 mg 10/04/25 21:00 10/08/25 08:38 Pantoprazole Sodium Iv 40 Mg Vial IV PUSH 40 mg Q12HR VIKA Administration Sodium Chloride 10 ml 10/04/25 14:00 10/08/25 05:17 Central Line Flush IV PUSH 10 ml Q8HR VIKA Administration Sodium Chloride 20 ml 10/04/25 09:27 Central Line Flush IV PUSH PRN PRN after blood draws Thiamine HCl 100 mg 10/05/25 09:00 10/08/25 08:38 Thiamine Hcl 200 Mg/2 Ml Vial IV PUSH 100 mg QAM VIKA Administration Radiology Results: ITS Impressions Head CT 10/04/25 07:09 IMPRESSION: 1. No acute intracranial findings. Chest/Abdomen/Pelvis CT 10/04/25 07:26 IMPRESSION: CHEST- 1. Interstitial pulmonary edema and small right pleural effusion. 2. Superimposed pneumonitis or interstitial lung disease not excluded. ABDOMEN/PELVIS- 1. Colonic hepatic flexure wall thickening. Colitis and/or malignancy. 2. Additional findings as above. Renal Ultrasound 10/05/25 13:44 Impression: 1: Unremarkable renal ultrasound. No stones, masses or hydronephrosis. 2: Splenomegaly. 3: Ascites. Chest X-Ray 10/08/25 08:20 Impression: CHF. Superimposed probable pneumonia. The findings appear relatively unchanged Labs Labs: Laboratory Tests 10/08/25 05:20 10/08/25 05:20 Lactic Acid 1.3 Calcium 8.5 Phosphorus 5.6 H Magnesium 2.2 Total Bilirubin 5.1 H AST 85 H ALT 23 Alkaline Phosphatase 76 Total Protein 7.8 Albumin 3.6 Microbiology 10/04/25 13:40 Urine - Urine [place] Legionella pneumophila Serogrp 1 Ag - Final
--- NOTE | 2025-10-08 11:27 | PM.PNCARD ---
Progress Note: A&P Assessment and Plan (1) Elevated troponin: Code(s): R79.89 - Other specified abnormal findings of blood chemistry Status: Acute (2) Aortic stenosis: Code(s): I35.0 - Nonrheumatic aortic (valve) stenosis Status: Acute (3) Acute CHF: Code(s): I50.9 - Heart failure, unspecified Status: Acute Plan Assessment: -Acute congestive heart failure-LVEF 55-60% -Elevated troponin of 4.720, 8.720, 13.00 without chest pain-most likely secondary to above -Severe aortic stenosis-aortic valve area 0.9 cm2 and mean gradient 43 mm Hg -Other valvular heart disease: Mild to moderate aortic regurgitation, [id number] tricuspid regurgitation -Moderate pulmonary hypertension with PASP of 56 mm Hg -Acute hypoxic respiratory failure requiring intubation and sedation-multifactorial secondary to pneumonia, acute congestive heart failure, valvular heart disease -Hypertension but hypotensive at admission requiring pressors-now resolved, weaned off all presents -Sepsis-on IV antibiotics -Thrombocytopenia -49,000 -Anemia-hemoglobin 7.7 -MARIO on CKD -Substance abuse-cocaine and cannabis Plan: -Continue Lasix IV 80 mg b.i.d. -Monitor on telemetry -Check and replace electrolytes to keep potassium greater than 4 and magnesium greater than 2 -Start empagliflozin 10 mg daily -Check weight, ins and outs, renal function daily -Resume carvedilol 3.125 mg p.o. b.i.d. when SBP greater than 120 mm Hg -The elevated troponin in the absence of chest pain is most likely due to acute congestive heart failure and underlying acute illness. However patient does have multiple risk factors for CAD including diabetes mellitus, hypertension, middle-aged male. Recommend ischemia evaluation with cardiac catheterization after he recovers from his acute illness -Structural heart disease consult for severe aortic stenosis management after he recovers from his acute illness -Management of other medical problems per primary team Subjective Date/time seen: 10/08/25 11:27 Interval history: Reason for encounter: Elevated troponin Event history: 65-year-old man with PMH of CKD, CHF, DM, BPH, and HTN was found down on the ground by his altered and unable to get up. Patient's called EMS who found him in respiratory distress with an SpO2 of 89% on room air. Patient was brought to the ER at which time he was awake, alert and oriented answering questions. He was febrile, tachycardic, tachypneic, hypoxic requiring supplemental oxygen for assistance, and became hypotensive with BP 62/36. He did not have any complaints of chest pain. No specific complaints of chest pain at that time. Patient's condition deteriorated and he was started on pressors. His respiratory condition deteriorated requiring intubation and mechanical ventilation. He was admitted to the ICU for further care. Workup at presentation include Lactic 5.9, WBC 16K, chronic thrombocytopenia, nongap metabolic acidosis, Cr 1.8, UDS positive for cocaine and cannabinoids, EtOH level 23, CXR-no acute cardiopulmonary findings but possibly pulmonary fibrosis, head CT-no acute intracranial findings, CT chest abdomen pelvis- interstitial pulmonary edema, small right pleural effusion, colonic hepatic flexure wall thickening consistent with colitis and/or malignancy and cirrhosis. Troponin was noted to be elevated at 4.720, 8.720, 13.0, [place] [id number], TTE showed LVEF 55-60%, severe aortic stenosis with aortic valve area of 0.9 cm2 and mean gradient of 43 mm Hg, mild to moderate aortic regurgitation, mild to moderate tricuspid regurgitation, moderate pulmonary hypertension with pulmonary artery systolic pressure of 56 mm Hg. Cardiology was consulted for elevated troponin. NSTEMI was ruled out it is patient did not have any chest pain. Interval history: Patient is sedated and intubated. No further history can be obtained from him. Blood pressure remained stable. Telemetry shows sinus rhythm. Review of Systems Review of Systems: Patient is intubated and sedated and no further history could be obtained from him. Exam Narrative: General: Intubated and sedated, not moving any extremities Neck: Supple, unable to assess JVD Chest: Bilaterally clear to auscultation, no rales or rhonchi Cardiac: S1, S2 +, regular rate, regular rhythm, no murmurs or rubs Extremities: Bilateral lower extremity edema 1+, no skin rash Neurologic: Intubated and sedated, not moving any extremities Objective Data Vital Signs Vital Signs: Vital Signs - 24 hr 10/07/25 12:00 10/07/25 12:00 10/07/25 12:00 Temperature 36.9 C Pulse Rate 79 80 Respiratory Rate 22 H Blood Pressure 114/58 L Pulse Oximetry 93 93 Oxygen Delivery Mechanical Ventilation Fraction of Inspired Oxygen 30 10/07/25 12:00 10/07/25 12:00 10/07/25 12:00 Temperature Pulse Rate 79 80 Respiratory Rate 22 H 22 H Blood Pressure Pulse Oximetry Oxygen Delivery Fraction of Inspired Oxygen 30 10/07/25 12:00 10/07/25 13:00 10/07/25 13:38 Temperature 37.0 C Pulse Rate 79 92 79 Respiratory Rate 22 H Blood Pressure 111/56 L 119/57 L Pulse Oximetry 93 93 Oxygen Delivery Mechanical Ventilation Fraction of Inspired Oxygen 30 10/07/25 14:00 10/07/25 14:00 10/07/25 14:00 Temperature 37.1 C Pulse Rate 79 79 79 Respiratory Rate 22 H 22 H Blood Pressure 113/58 L Pulse Oximetry 93 Oxygen Delivery Fraction of Inspired Oxygen 10/07/25 14:00 10/07/25 14:00 10/07/25 15:00 Temperature 37.2 C Pulse Rate 79 79 79 Respiratory Rate 22 H 22 H Blood Pressure 117/59 L 116/60 Pulse Oximetry 93 Oxygen Delivery Fraction of Inspired Oxygen 10/07/25 16:00 10/07/25 16:00 10/07/25 16:00 Temperature 37.2 C Pulse Rate 78 79 Respiratory Rate 25 H Blood Pressure 116/62 Pulse Oximetry 93 94 Oxygen Delivery Mechanical Ventilation Fraction of Inspired Oxygen 30 10/07/25 16:00 10/07/25 16:00 10/07/25 16:00 Temperature Pulse Rate 78 78 Respiratory Rate 22 H 22 H Blood Pressure Pulse Oximetry Oxygen Delivery Fraction of Inspired Oxygen 30 10/07/25 16:00 10/07/25 16:30 10/07/25 17:00 Temperature 37.2 C Pulse Rate 78 78 78 Respiratory Rate 22 H Blood Pressure 116/62 114/57 L Pulse Oximetry 93 94 Oxygen Delivery Mechanical Ventilation Fraction of Inspired Oxygen 30 10/07/25 18:00 10/07/25 18:00 10/07/25 18:00 Temperature Pulse Rate 92 92 92 Respiratory Rate 22 H 22 H Blood Pressure 106/56 L Pulse Oximetry Oxygen Delivery Fraction of Inspired Oxygen 10/07/25 18:00 10/07/25 18:00 10/07/25 19:00 Temperature 37.1 C 37.1 C Pulse Rate 82 82 81 Respiratory Rate 22 H 22 H Blood Pressure 106/56 L 114/62 Pulse Oximetry 92 93 Oxygen Delivery Fraction of Inspired Oxygen 10/07/25 20:00 10/07/25 20:00 10/07/25 20:00 Temperature Pulse Rate 92 92 92 Respiratory Rate 22 H 22 H Blood Pressure 120/71 Pulse Oximetry Oxygen Delivery Fraction of Inspired Oxygen 10/07/25 20:00 10/07/25 20:00 10/07/25 20:00 Temperature 36.9 C Pulse Rate 92 Respiratory Rate 22 H Blood Pressure 120/71 Pulse Oximetry 94 94 Oxygen Delivery Mechanical Ventilation Fraction of Inspired Oxygen 30 30 10/07/25 20:00 10/07/25 20:06 10/07/25 21:00 Temperature 37.2 C Pulse Rate 83 83 82 Respiratory Rate 22 H Blood Pressure 115/67 Pulse Oximetry 94 94 Oxygen Delivery Mechanical Ventilation Fraction of Inspired Oxygen 30 10/07/25 22:00 10/07/25 22:00 10/07/25 22:00 Temperature Pulse Rate 80 83 83 Respiratory Rate 220 H 22 H Blood Pressure 114/60 Pulse Oximetry Oxygen Delivery Fraction of Inspired Oxygen 10/07/25 22:00 10/07/25 22:00 10/07/25 22:50 Temperature 37.3 C Pulse Rate 83 83 83 Respiratory Rate 22 H Blood Pressure 114/60 Pulse Oximetry 94 93 Oxygen Delivery Mechanical Ventilation Fraction of Inspired Oxygen 30 10/07/25 23:00 10/08/25 00:00 10/08/25 00:00 Temperature 37.3 C Pulse Rate 98 Respiratory Rate 22 H Blood Pressure 119/65 Pulse Oximetry 93 94 Oxygen Delivery Mechanical Ventilation Fraction of Inspired Oxygen 30 30 10/08/25 00:00 10/08/25 00:00 10/08/25 00:00 Temperature 37.3 C Pulse Rate 89 89 89 Respiratory Rate 22 H 22 H Blood Pressure 113/59 L Pulse Oximetry 94 Oxygen Delivery Fraction of Inspired Oxygen 10/08/25 00:00 10/08/25 00:00 10/08/25 01:00 Temperature 37.3 C Pulse Rate 89 89 88 Respiratory Rate 22 H 22 H Blood Pressure 113/59 L 112/63 Pulse Oximetry 94 Oxygen Delivery Fraction of Inspired Oxygen 10/08/25 01:39 10/08/25 02:00 10/08/25 02:00 Temperature Pulse Rate 82 84 84 Respiratory Rate 22 H Blood Pressure 121/74 Pulse Oximetry 95 Oxygen Delivery Mechanical Ventilation Fraction of Inspired Oxygen 30 10/08/25 02:00 10/08/25 02:00 10/08/25 02:00 Temperature 37.3 C Pulse Rate 84 84 84 Respiratory Rate 22 H 22 H Blood Pressure 121/74 Pulse Oximetry 96 Oxygen Delivery Fraction of Inspired Oxygen 10/08/25 03:00 10/08/25 04:00 10/08/25 04:00 Temperature 37.3 C Pulse Rate 85 84 84 Respiratory Rate 22 H 22 H Blood Pressure 118/64 119/63 Pulse Oximetry 95 Oxygen Delivery Fraction of Inspired Oxygen 10/08/25 04:00 10/08/25 04:00 10/08/25 04:00 Temperature Pulse Rate 84 Respiratory Rate 22 H Blood Pressure Pulse Oximetry 94 Oxygen Delivery Mechanical Ventilation Fraction of Inspired Oxygen 30 30 10/08/25 04:00 10/08/25 04:00 10/08/25 04:38 Temperature 37.3 C Pulse Rate 84 84 83 Respiratory Rate 22 H Blood Pressure 119/63 Pulse Oximetry 95 95 Oxygen Delivery Mechanical Ventilation Fraction of Inspired Oxygen 30 10/08/25 05:00 10/08/25 06:00 10/08/25 06:00 Temperature 37.3 C Pulse Rate 83 80 80 Respiratory Rate 22 H 22 H 22 H Blood Pressure 95/44 L Pulse Oximetry 94 Oxygen Delivery Fraction of Inspired Oxygen 10/08/25 06:00 10/08/25 06:00 10/08/25 06:00 Temperature 37.0 C Pulse Rate 80 80 80 Respiratory Rate 22 H Blood Pressure 106/53 L 106/53 L Pulse Oximetry 94 Oxygen Delivery Fraction of Inspired Oxygen 10/08/25 07:00 10/08/25 07:05 10/08/25 08:00 Temperature 37.0 C Pulse Rate 86 86 86 Respiratory Rate 20 22 H 22 H Blood Pressure 115/56 L Pulse Oximetry 95 96 Oxygen Delivery Mechanical Ventilation Fraction of Inspired Oxygen 30 10/08/25 08:00 10/08/25 08:00 10/08/25 08:00 Temperature 37.0 C Pulse Rate 86 86 Respiratory Rate 22 H Blood Pressure 124/62 Pulse Oximetry 96 Oxygen Delivery Fraction of Inspired Oxygen 30 10/08/25 08:00 10/08/25 08:09 10/08/25 09:00 Temperature 36.8 C Pulse Rate 82 86 82 Respiratory Rate 22 H 22 H Blood Pressure 121/57 L Pulse Oximetry 95 91 Oxygen Delivery Mechanical Ventilation Fraction of Inspired Oxygen 30 10/08/25 10:00 10/08/25 10:00 10/08/25 11:00 Temperature 36.8 C 36.8 C Pulse Rate 82 82 79 Respiratory Rate 22 H 22 H Blood Pressure 120/64 124/62 Pulse Oximetry 95 95 Oxygen Delivery Fraction of Inspired Oxygen 10/08/25 11:03 Temperature Pulse Rate 79 Respiratory Rate Blood Pressure Pulse Oximetry 95 Oxygen Delivery Mechanical Ventilation Fraction of Inspired Oxygen 30 Intake/Output Intake/Output: Intake & Output 10/05/25 10/06/25 10/07/25 10/08/25 23:59 23:59 23:59 23:59 Intake Total 3069.3 1516.7 1720.7 1015.7 Output Total 700 600 580 650 Balance 2369.3 916.7 1140.7 365.7 Meds/Results Medications: Active Medications Generic Name Dose Route Start Last Admin Trade Name Freq PRN Reason Stop Dose Admin Aspirin 81 mg 10/04/25 17:50 10/08/25 08:36 Aspirin 81 Mg Chewable Tablet PO 81 mg DAILY@0800 VIKA Administration Dextrose 12.5 gm 10/04/25 13:16 Dextrose 50% 25 Gm/50 Ml Syringe IV PUSH PRN PRN Hypoglycemia Protocol Furosemide 80 mg 10/08/25 09:00 10/08/25 08:37 Furosemide Inj 100 Mg/10 Ml Vial IV PUSH 80 mg BID VIKA Administration Glucagon 1 mg 10/04/25 13:16 Glucagon For Inj 1 Mg Vial IM PRN PRN Hypoglycemia Protocol Glucose 15 gm 10/04/25 13:16 Glucose Oral Gel 15 Gm Of Glucse In 37.5 Gm Tube PO PRN PRN Hypoglycemia Protocol Metronidazole 500 mg in 100 mls @ 100 mls/hr 10/04/25 17:00 10/08/25 09:37 Flagyl 500 Mg/Iso Soln 100 Ml IVPB 10/11/25 01:59 Infused Q8H VIKA Infusion Albumin Human 100 mls @ 60 mls/hr 10/04/25 12:00 10/08/25 07:07 Albutein IVPB Infused Q6HR VIKA Infusion Dextrose 1,000 mls @ 100 mls/hr 10/04/25 13:16 Dextrose 5% 1,000 Ml IVPB PRN PRN Hypoglycemia Protocol Fentanyl Citrate 2,500 mcg in 250 mls @ 0 mls/hr 10/04/25 19:45 10/08/25 08:00 Fentanyl 2,500 Mcg/Ns 250 Ml IV CONT 0 mcg/hr On Hold: 10/08/25 08:04 .Q0M VIKA 0 mls/hr Protocol Titration 0 MCG/HR Cefepime HCl 1 gm/ Sodium 50 mls @ 100 mls/hr 10/08/25 09:00 10/08/25 09:06 Chloride IVPB 10/10/25 21:29 Infused Q12H VIKA Infusion Insulin Aspart 3 - 6 units 10/04/25 18:00 10/08/25 06:20 Insulin Aspart (*Bkc) 100 Units/Ml SUB-Q Not Given Q6HR VIKA Protocol Ipratropium [place] 0.5 mg 10/07/25 07:43 Ipratropium Br 0.02% Inh Soln 0.5 Mg/2.5 Ml Vial INHALATION Q6HRT PRN Wheezing Lactulose 20 gm 10/08/25 09:00 10/08/25 08:37 Lactulose 20 Gm/30 Ml Udc FEED TUBE 20 gm BID VIKA Administration Levalbuterol HCl 0.63 mg 10/07/25 07:44 Levalbuterol Neb 1.25 Mg/3 Ml INHALATION Q6HRT PRN Wheezing Metoclopramide HCl 10 mg 10/08/25 08:05 10/08/25 08:36 Metoclopramide Hcl 10 Mg Tablet FEED TUBE 10 mg Q6HR VIKA Administration Multi-Ingred Cream/Lotion/Oil/Oint 1 applic 10/07/25 09:00 10/08/25 08:37 Mineral Oil/White Petrolatum Ointment EACH EYE 1 applic Q12HR VIKA Administration Pantoprazole Sodium 40 mg 10/04/25 21:00 10/08/25 08:38 Pantoprazole Sodium Iv 40 Mg Vial IV PUSH 40 mg Q12HR VIKA Administration Sodium Chloride 10 ml 10/04/25 14:00 10/08/25 05:17 Central Line Flush IV PUSH 10 ml Q8HR VIKA Administration Sodium Chloride 20 ml 10/04/25 09:27 Central Line Flush IV PUSH PRN PRN after blood draws Thiamine HCl 100 mg 10/05/25 09:00 10/08/25 08:38 Thiamine Hcl 200 Mg/2 Ml Vial IV PUSH 100 mg QAM VIKA Administration Radiology Results: ITS Impressions Head CT 10/04/25 07:09 IMPRESSION: 1. No acute intracranial findings. Chest/Abdomen/Pelvis CT 10/04/25 07:26 IMPRESSION: CHEST- 1. Interstitial pulmonary edema and small right pleural effusion. 2. Superimposed pneumonitis or interstitial lung disease not excluded. ABDOMEN/PELVIS- 1. Colonic hepatic flexure wall thickening. Colitis and/or malignancy. 2. Additional findings as above. Renal Ultrasound 10/05/25 13:44 Impression: 1: Unremarkable renal ultrasound. No stones, masses or hydronephrosis. 2: Splenomegaly. 3: Ascites. Chest X-Ray 10/08/25 08:20 Impression: CHF. Superimposed probable pneumonia. The findings appear relatively unchanged Labs Labs: Laboratory Results - last 24 hr 10/07/25 10/07/25 10/07/25 11:26 18:03 23:51 WBC RBC Hgb Hct MCV MCH MCHC RDW Plt Count MPV Immature Gran % (Auto) Neut % (Auto) Lymph % (Auto) [place] % (Auto) Eos % (Auto) Baso % (Auto) Lymph # (Auto) [place] # (Auto) Eos # (Auto) Baso # (Auto) Abs Immat Gran (auto) Absolute Neuts (auto) Absolute Nucleated RBC Band Neutrophils % Nucleated RBC % Platelet Estimate % Immature Plt Fraction Hypochromasia Macrocytosis Tear Drop Cells Ovalocytes Schistocytes PT INR APTT Puncture Site ABG pH ABG pCO2 ABG pO2 ABG PO2/FiO2 Ratio ABG HCO3 ABG O2 Saturation ABG O2 Content ABG Base Excess A-a Gradient Oxyhemoglobin Carboxyhemoglobin Methemoglobin Reduced Hemoglobin Total Hemoglobin O2 Delivery Device O2 Liters/Min Minute Volume Vent Rate Vent Mode FiO2 Tidal Volume PEEP Peak Inspir Pressure Pressure Support Sodium Potassium Chloride Carbon Dioxide Anion Gap BUN Creatinine Estim Creat Clear Calc Estimated GFR Glucose POC Capillary Glucose 136 H 105 130 H Lactic Acid Calcium Phosphorus Magnesium Total Bilirubin AST ALT Alkaline Phosphatase Total Protein Albumin 10/08/25 10/08/25 04:23 05:20 WBC 7.4 RBC 2.26 L Hgb 7.7 L Hct 24.9 L MCV 110.2 H MCH 34.1 H MCHC 30.9 L RDW 15.6 H Plt Count 49 L MPV 10.4 Immature Gran % (Auto) 0.8 H Neut % (Auto) 76.6 H Lymph % (Auto) 10.3 L [place] % (Auto) 8.5 Eos % (Auto) 3.4 Baso % (Auto) 0.4 Lymph # (Auto) 0.76 L [place] # (Auto) 0.6 Eos # (Auto) 0.3 Baso # (Auto) 0.0 Abs Immat Gran (auto) 0.06 H Absolute Neuts (auto) 5.6 Absolute Nucleated RBC 0.020 H Band Neutrophils % Not Reportable Nucleated RBC % 0.3 H Platelet Estimate Decreased % Immature Plt Fraction 2.2 Hypochromasia 1+ Macrocytosis 1+ Tear Drop Cells 1+ Ovalocytes Occasional Schistocytes Occasional PT 18.7 H INR 1.6 APTT 44.5 H Puncture Site Right radial ABG pH 7.384 ABG pCO2 36.6 ABG pO2 98.6 ABG PO2/FiO2 Ratio 3.29 ABG HCO3 21.4 L ABG O2 Saturation 97.4 ABG O2 Content 12.2 L ABG Base Excess -3.3 A-a Gradient 72.3 Oxyhemoglobin 95.9 Carboxyhemoglobin 1.3 Methemoglobin 0.3 Reduced Hemoglobin 2.5 Total Hemoglobin 8.9 L O2 Delivery Device Ventilator O2 Liters/Min Not Reportable Minute Volume Not Reportable Vent Rate 22 Vent Mode Cmv FiO2 30 Tidal Volume 500 PEEP 10 Peak Inspir Pressure Not Reportable Pressure Support Not Reportable Sodium 142 Potassium 4.8 Chloride 111 H Carbon Dioxide 24 Anion Gap 7 BUN 64 H Creatinine 4.39 H Estim Creat Clear Calc 26 Estimated GFR 14 L Glucose 124 H POC Capillary Glucose Lactic Acid 1.3 Calcium 8.5 Phosphorus 5.6 H Magnesium 2.2 Total Bilirubin 5.1 H AST 85 H ALT 23 Alkaline Phosphatase 76 Total Protein 7.8 Albumin 3.6
--- NOTE | 2025-10-08 13:00 | PCFNICU ---
ICU Rounding Note: Pt current nutrition is Tube feeding: Nepro @ 45 ml/h with 30 ml flushes q 4 hours. Nutrition recommendation: Continue current tube feeding orders. Agree with orders Last recorded weight is 168.6 kg. Bowel Motility: No bowel movements yet. Started on Reglan and bowel regimen Labs Reviewed: Hgb 7.7, Hct 24.9, GFR 14, BUN 64, Cre 4.29, Glu 124 Meds Noted: thiamine, lactulose, Lasix, reglan, fentanyl Skin: No skin issues Additional Notes: Still having some higher residuals: 220 ml, no bowel movements. Started on Reglan. Will continue current tube feeding orders. Following daily in ICU rounds. Will monitor weight, labs, skin, diet orders, meds every Wednesday and Wednesday. .
--- NOTE | 2025-10-08 15:36 | P.PNIM_ITS ---
Subjective Date/time seen: 10/08/25 15:36 Interval history: HPI:65yo male with history of CKD, CHF, DM, BPH, and HTN who presents to the ED for SOB, weakness, and fever. EMS called a code sepsis from the household based on vital signs and physical exam. Patient was in respiratory distress and breathing heavy. His SpO2 was 89% on room air. He was found down on the ground reportedly altered and not able to get up. Patient on arrival to the ED was awake, alert and oriented answering questions. He was febrile, tachycardic, tachypneic, and hypoxic requiring supplemental oxygen for assistance. He became HoTN with BP 62/36. No specific complaints of chest pain, abdominal pain, nausea, vomiting, diarrhea. No injuries reported. He states he just does not feel well. No sick contacts at home. No recent hospitalizations per patient. Lactic was 5.9 -> 4.2. COVID, RSV and Influenza PCR was negative. WBC 16K with chronic thrombocytopenia. Nongap metabolic acidosis. CKD noted and stable with Cr at 1.8. MRSA nasal swab negative. UA not consistent with UTI. UDS positive for cocaine and cannabinoids. EtOH level 23. CXR showing no acute cardiopulmonary findings but possibly pulmonary fibrosis. Head CT showing no acute intracranial findings. CT Ch/A/P showing interstitial pulmonary edema, small right pleural effusion, colonic hepatic flexure wall thickening consistent with colitis and/or malignancy and cirrhosis. Cannot exclude superimposed pneumonitis or ILD. Patient's condition deteriorated. Central line was placed and was started on pressors. His respiratory condition deteriorated requiring intubation and mechanical ventilation. ABG 7.27/41/196 on mechanical ventilation. He was admitted to the ICU for further care. Harvest Manager was consulted. Patient sedated and unable to provide hx. No family in the room at this time. 10/05/2025 remains intubated and sedated. Events noted. Heparin drip was started on eventually was discontinued due to down trending H&H. at bedside and reviewed with her 10/06/2025 overnight events noted. Remains intubated and sedated. Labs reviewed. 10/07/2025: Overnight events noted. Remains intubated and sedated. Off both vasopressors today. Urine output is still poor. Labs reviewed and creatinine increased. Off Versed drip this a.m. discussed with nursing staff 10/08/2025: Overnight events noted. Remains intubated and sedated. Labs reviewed. Off vasopressor. Urine output reviewed Review of Systems Review of Systems: ROS unobtainable: Yes unobtainable due to medical condition Exam Narrative: General: Intubated, sedated, in no acute distress HEENT:? Pupils equal and reactive, sclera is icteric, ETT in place Neck:? Thick neck, right IJ central line in place Respiratory:? Coarse breath sounds bilaterally, decreased at bases, no wheezing Cardiac:? S1-S2 is normal, sinus tachycardia Abdomen:? Soft, nontender, nondistended, obese, hypoactive bowel sounds, Extremities:? Bilateral lower extremity pitting edema, dopplerable pedal pulses Neuro:? Patient is intubated, sedated, Skin:? Chronic venous stasis changes and chronic skin discoloration Psych:? Unable to assess at this time Objective Data Vital Signs Vital Signs: Vital Signs - 24 hr 10/07/25 16:00 10/07/25 16:00 10/07/25 16:00 Temperature 99.0 F Pulse Rate 78 79 Respiratory Rate 25 H Blood Pressure 116/62 Pulse Oximetry 93 94 Oxygen Delivery Mechanical Ventilation Fraction of Inspired Oxygen 30 10/07/25 16:00 10/07/25 16:00 10/07/25 16:00 Temperature Pulse Rate 78 78 Respiratory Rate 22 H 22 H Blood Pressure Pulse Oximetry Oxygen Delivery Fraction of Inspired Oxygen 30 10/07/25 16:00 10/07/25 16:30 10/07/25 17:00 Temperature 98.9 F Pulse Rate 78 78 78 Respiratory Rate 22 H Blood Pressure 116/62 114/57 L Pulse Oximetry 93 94 Oxygen Delivery Mechanical Ventilation Fraction of Inspired Oxygen 30 10/07/25 18:00 10/07/25 18:00 10/07/25 18:00 Temperature Pulse Rate 92 92 92 Respiratory Rate 22 H 22 H Blood Pressure 106/56 L Pulse Oximetry Oxygen Delivery Fraction of Inspired Oxygen 10/07/25 18:00 10/07/25 18:00 10/07/25 19:00 Temperature 98.8 F 98.7 F Pulse Rate 82 82 81 Respiratory Rate 22 H 22 H Blood Pressure 106/56 L 114/62 Pulse Oximetry 92 93 Oxygen Delivery Fraction of Inspired Oxygen 10/07/25 20:00 10/07/25 20:00 10/07/25 20:00 Temperature Pulse Rate 92 92 92 Respiratory Rate 22 H 22 H Blood Pressure 120/71 Pulse Oximetry Oxygen Delivery Fraction of Inspired Oxygen 10/07/25 20:00 10/07/25 20:00 10/07/25 20:00 Temperature 98.5 F Pulse Rate 92 Respiratory Rate 22 H Blood Pressure 120/71 Pulse Oximetry 94 94 Oxygen Delivery Mechanical Ventilation Fraction of Inspired Oxygen 30 30 10/07/25 20:00 10/07/25 20:06 10/07/25 21:00 Temperature 98.9 F Pulse Rate 83 83 82 Respiratory Rate 22 H Blood Pressure 115/67 Pulse Oximetry 94 94 Oxygen Delivery Mechanical Ventilation Fraction of Inspired Oxygen 30 10/07/25 22:00 10/07/25 22:00 10/07/25 22:00 Temperature Pulse Rate 80 83 83 Respiratory Rate 220 H 22 H Blood Pressure 114/60 Pulse Oximetry Oxygen Delivery Fraction of Inspired Oxygen 10/07/25 22:00 10/07/25 22:00 10/07/25 22:50 Temperature 99.1 F Pulse Rate 83 83 83 Respiratory Rate 22 H Blood Pressure 114/60 Pulse Oximetry 94 93 Oxygen Delivery Mechanical Ventilation Fraction of Inspired Oxygen 30 10/07/25 23:00 10/08/25 00:00 10/08/25 00:00 Temperature 99.1 F Pulse Rate 98 Respiratory Rate 22 H Blood Pressure 119/65 Pulse Oximetry 93 94 Oxygen Delivery Mechanical Ventilation Fraction of Inspired Oxygen 30 30 10/08/25 00:00 10/08/25 00:00 10/08/25 00:00 Temperature 99.1 F Pulse Rate 89 89 89 Respiratory Rate 22 H 22 H Blood Pressure 113/59 L Pulse Oximetry 94 Oxygen Delivery Fraction of Inspired Oxygen 10/08/25 00:00 10/08/25 00:00 10/08/25 01:00 Temperature 99.1 F Pulse Rate 89 89 88 Respiratory Rate 22 H 22 H Blood Pressure 113/59 L 112/63 Pulse Oximetry 94 Oxygen Delivery Fraction of Inspired Oxygen 10/08/25 01:39 10/08/25 02:00 10/08/25 02:00 Temperature Pulse Rate 82 84 84 Respiratory Rate 22 H Blood Pressure 121/74 Pulse Oximetry 95 Oxygen Delivery Mechanical Ventilation Fraction of Inspired Oxygen 30 10/08/25 02:00 10/08/25 02:00 10/08/25 02:00 Temperature 99.2 F Pulse Rate 84 84 84 Respiratory Rate 22 H 22 H Blood Pressure 121/74 Pulse Oximetry 96 Oxygen Delivery Fraction of Inspired Oxygen 10/08/25 03:00 10/08/25 04:00 10/08/25 04:00 Temperature 99.1 F Pulse Rate 85 84 84 Respiratory Rate 22 H 22 H Blood Pressure 118/64 119/63 Pulse Oximetry 95 Oxygen Delivery Fraction of Inspired Oxygen 10/08/25 04:00 10/08/25 04:00 10/08/25 04:00 Temperature Pulse Rate 84 Respiratory Rate 22 H Blood Pressure Pulse Oximetry 94 Oxygen Delivery Mechanical Ventilation Fraction of Inspired Oxygen 30 30 10/08/25 04:00 10/08/25 04:00 10/08/25 04:38 Temperature 99.1 F Pulse Rate 84 84 83 Respiratory Rate 22 H Blood Pressure 119/63 Pulse Oximetry 95 95 Oxygen Delivery Mechanical Ventilation Fraction of Inspired Oxygen 30 10/08/25 05:00 10/08/25 06:00 10/08/25 06:00 Temperature 99.2 F Pulse Rate 83 80 80 Respiratory Rate 22 H 22 H 22 H Blood Pressure 95/44 L Pulse Oximetry 94 Oxygen Delivery Fraction of Inspired Oxygen 10/08/25 06:00 10/08/25 06:00 10/08/25 06:00 Temperature 98.6 F Pulse Rate 80 80 80 Respiratory Rate 22 H Blood Pressure 106/53 L 106/53 L Pulse Oximetry 94 Oxygen Delivery Fraction of Inspired Oxygen 10/08/25 07:00 10/08/25 07:05 10/08/25 08:00 Temperature 98.6 F Pulse Rate 86 86 86 Respiratory Rate 20 22 H 22 H Blood Pressure 115/56 L Pulse Oximetry 95 96 Oxygen Delivery Mechanical Ventilation Fraction of Inspired Oxygen 30 10/08/25 08:00 10/08/25 08:00 10/08/25 08:00 Temperature 98.6 F Pulse Rate 86 86 Respiratory Rate 22 H Blood Pressure 124/62 Pulse Oximetry 96 Oxygen Delivery Fraction of Inspired Oxygen 30 10/08/25 08:00 10/08/25 08:09 10/08/25 09:00 Temperature 98.3 F Pulse Rate 82 86 82 Respiratory Rate 22 H 22 H Blood Pressure 121/57 L Pulse Oximetry 95 91 Oxygen Delivery Mechanical Ventilation Fraction of Inspired Oxygen 30 10/08/25 10:00 10/08/25 10:00 10/08/25 11:00 Temperature 98.3 F 98.3 F Pulse Rate 82 82 79 Respiratory Rate 22 H 22 H Blood Pressure 120/64 124/62 Pulse Oximetry 95 95 Oxygen Delivery Fraction of Inspired Oxygen 10/08/25 11:03 10/08/25 12:00 10/08/25 12:00 Temperature Pulse Rate 79 78 78 Respiratory Rate 22 H Blood Pressure Pulse Oximetry 95 95 Oxygen Delivery Mechanical Ventilation Mechanical Ventilation Fraction of Inspired Oxygen 30 30 10/08/25 12:00 10/08/25 12:00 10/08/25 13:00 Temperature 98.3 F 98.3 F Pulse Rate 78 78 Respiratory Rate 22 H 22 H Blood Pressure 130/60 129/59 L Pulse Oximetry 95 94 Oxygen Delivery Fraction of Inspired Oxygen 30 10/08/25 14:00 10/08/25 14:00 10/08/25 15:00 Temperature 98.3 F 98.3 F Pulse Rate 78 78 78 Respiratory Rate 22 H 22 H Blood Pressure 126/61 126/62 Pulse Oximetry 94 93 Oxygen Delivery Fraction of Inspired Oxygen Intake/Output Intake/Output: Intake & Output 10/05/25 10/06/25 10/07/25 10/08/25 23:59 23:59 23:59 23:59 Intake Total 3069.3 1516.7 1720.7 1115.7 Output Total 700 600 580 650 Balance 2369.3 916.7 1140.7 465.7 Meds/Results Medications: Active Medications Generic Name Dose Route Start Last Admin Trade Name Freq PRN Reason Stop Dose Admin Aspirin 81 mg 10/04/25 17:50 10/08/25 08:36 Aspirin 81 Mg Chewable Tablet PO 81 mg DAILY@0800 VIKA Administration Dextrose 12.5 gm 10/04/25 13:16 Dextrose 50% 25 Gm/50 Ml Syringe IV PUSH PRN PRN Hypoglycemia Protocol Furosemide 80 mg 10/08/25 09:00 10/08/25 08:37 Furosemide Inj 100 Mg/10 Ml Vial IV PUSH 80 mg BID VIKA Administration Glucagon 1 mg 10/04/25 13:16 Glucagon For Inj 1 Mg Vial IM PRN PRN Hypoglycemia Protocol Glucose 15 gm 10/04/25 13:16 Glucose Oral Gel 15 Gm Of Glucse In 37.5 Gm Tube PO PRN PRN Hypoglycemia Protocol Metronidazole 500 mg in 100 mls @ 100 mls/hr 10/04/25 17:00 10/08/25 09:37 Flagyl 500 Mg/Iso Soln 100 Ml IVPB 10/11/25 01:59 Infused Q8H VIKA Infusion Albumin Human 100 mls @ 60 mls/hr 10/04/25 12:00 10/08/25 13:49 Albutein IVPB Infused Q6HR VIKA Infusion Dextrose 1,000 mls @ 100 mls/hr 10/04/25 13:16 Dextrose 5% 1,000 Ml IVPB PRN PRN Hypoglycemia Protocol Cefepime HCl 1 gm/ Sodium 50 mls @ 100 mls/hr 10/08/25 09:00 10/08/25 09:06 Chloride IVPB 10/10/25 21:29 Infused Q12H VIKA Infusion Insulin Aspart 3 - 6 units 10/04/25 18:00 10/08/25 11:36 Insulin Aspart (*Bkc) 100 Units/Ml SUB-Q Not Given Q6HR VIKA Protocol Ipratropium [place] 0.5 mg 10/07/25 07:43 Ipratropium Br 0.02% Inh Soln 0.5 Mg/2.5 Ml Vial INHALATION Q6HRT PRN Wheezing Lactulose 20 gm 10/08/25 09:00 10/08/25 08:37 Lactulose 20 Gm/30 Ml Udc FEED TUBE 20 gm BID VIKA Administration Levalbuterol HCl 0.63 mg 10/07/25 07:44 Levalbuterol Neb 1.25 Mg/3 Ml INHALATION Q6HRT PRN Wheezing Metoclopramide HCl 10 mg 10/08/25 08:05 10/08/25 12:08 Metoclopramide Hcl 10 Mg Tablet FEED TUBE 10 mg Q6HR VIKA Administration Multi-Ingred Cream/Lotion/Oil/Oint 1 applic 10/07/25 09:00 10/08/25 08:37 Mineral Oil/White Petrolatum Ointment EACH EYE 1 applic Q12HR VIKA Administration Pantoprazole Sodium 40 mg 10/04/25 21:00 10/08/25 08:38 Pantoprazole Sodium Iv 40 Mg Vial IV PUSH 40 mg Q12HR VIKA Administration Sodium Chloride 10 ml 10/04/25 14:00 10/08/25 15:07 Central Line Flush IV PUSH 10 ml Q8HR VIKA Administration Sodium Chloride 20 ml 10/04/25 09:27 Central Line Flush IV PUSH PRN PRN after blood draws Thiamine HCl 100 mg 10/05/25 09:00 10/08/25 08:38 Thiamine Hcl 200 Mg/2 Ml Vial IV PUSH 100 mg QAM VIKA Administration Radiology Results: ITS Impressions Head CT 10/04/25 07:09 IMPRESSION: 1. No acute intracranial findings. Chest/Abdomen/Pelvis CT 10/04/25 07:26 IMPRESSION: CHEST- 1. Interstitial pulmonary edema and small right pleural effusion. 2. Superimposed pneumonitis or interstitial lung disease not excluded. ABDOMEN/PELVIS- 1. Colonic hepatic flexure wall thickening. Colitis and/or malignancy. 2. Additional findings as above. Renal Ultrasound 10/05/25 13:44 Impression: 1: Unremarkable renal ultrasound. No stones, masses or hydronephrosis. 2: Splenomegaly. 3: Ascites. Chest X-Ray 10/08/25 08:20 Impression: CHF. Superimposed probable pneumonia. The findings appear relatively unchanged Labs Labs: Laboratory Results - last 24 hr 10/07/25 10/07/25 10/08/25 18:03 23:51 04:23 WBC RBC Hgb Hct MCV MCH MCHC RDW Plt Count MPV Immature Gran % (Auto) Neut % (Auto) Lymph % (Auto) Mccormick % (Auto) Eos % (Auto) Baso % (Auto) Lymph # (Auto) Mccormick # (Auto) Eos # (Auto) Baso # (Auto) Abs Immat Gran (auto) Absolute Neuts (auto) Absolute Nucleated RBC Band Neutrophils % Nucleated RBC % Platelet Estimate % Immature Plt Fraction Hypochromasia Macrocytosis Tear Drop Cells Ovalocytes Schistocytes PT INR APTT Puncture Site Right radial ABG pH 7.384 ABG pCO2 36.6 ABG pO2 98.6 ABG PO2/FiO2 Ratio 3.29 ABG HCO3 21.4 L ABG O2 Saturation 97.4 ABG O2 Content 12.2 L ABG Base Excess -3.3 A-a Gradient 72.3 Oxyhemoglobin 95.9 Carboxyhemoglobin 1.3 Methemoglobin 0.3 Reduced Hemoglobin 2.5 Total Hemoglobin 8.9 L O2 Delivery Device Ventilator O2 Liters/Min Not Reportable Minute Volume Not Reportable Vent Rate 22 Vent Mode Cmv FiO2 30 Tidal Volume 500 PEEP 10 Peak Inspir Pressure Not Reportable Pressure Support Not Reportable Sodium Potassium Chloride Carbon Dioxide Anion Gap BUN Creatinine Estim Creat Clear Calc Estimated GFR Glucose POC Capillary Glucose 105 130 H Lactic Acid Calcium Phosphorus Magnesium Total Bilirubin AST ALT Alkaline Phosphatase Total Protein Albumin 10/08/25 10/08/25 05:20 11:31 WBC 7.4 RBC 2.26 L Hgb 7.7 L Hct 24.9 L MCV 110.2 H MCH 34.1 H MCHC 30.9 L RDW 15.6 H Plt Count 49 L MPV 10.4 Immature Gran % (Auto) 0.8 H Neut % (Auto) 76.6 H Lymph % (Auto) 10.3 L Mccormick % (Auto) 8.5 Eos % (Auto) 3.4 Baso % (Auto) 0.4 Lymph # (Auto) 0.76 L Mccormick # (Auto) 0.6 Eos # (Auto) 0.3 Baso # (Auto) 0.0 Abs Immat Gran (auto) 0.06 H Absolute Neuts (auto) 5.6 Absolute Nucleated RBC 0.020 H Band Neutrophils % Not Reportable Nucleated RBC % 0.3 H Platelet Estimate Decreased % Immature Plt Fraction 2.2 Hypochromasia 1+ Macrocytosis 1+ Tear Drop Cells 1+ Ovalocytes Occasional Schistocytes Occasional PT 18.7 H INR 1.6 APTT 44.5 H Puncture Site ABG pH ABG pCO2 ABG pO2 ABG PO2/FiO2 Ratio ABG HCO3 ABG O2 Saturation ABG O2 Content ABG Base Excess A-a Gradient Oxyhemoglobin Carboxyhemoglobin Methemoglobin Reduced Hemoglobin Total Hemoglobin O2 Delivery Device O2 Liters/Min Minute Volume Vent Rate Vent Mode FiO2 Tidal Volume PEEP Peak Inspir Pressure Pressure Support Sodium 142 Potassium 4.8 Chloride 111 H Carbon Dioxide 24 Anion Gap 7 BUN 64 H Creatinine 4.39 H Estim Creat Clear Calc 26 Estimated GFR 14 L Glucose 124 H POC Capillary Glucose 144 H Lactic Acid 1.3 Calcium 8.5 Phosphorus 5.6 H Magnesium 2.2 Total Bilirubin 5.1 H AST 85 H ALT 23 Alkaline Phosphatase 76 Total Protein 7.8 Albumin 3.6 Assessment and Plan Assessment and Plan (1) Acute respiratory failure: Code(s): J96.00 - Acute respiratory failure, unspecified whether with hypoxia or hypercapnia Status: Acute Assessment and Plan: 10/04: Patient presented the ED via EMS with complains of generalized weakness, fevers, shortness of breath and fever. When EMS arrived to his house he was found on the ground, unable to get up off the floor. Patient's O2 sats were in the 80s on room air. Patient was placed on supplemental oxygen. In the ED patient was awake, alert, oriented was able to answer questions. O2 sats were improved but he was hypotensive, once he was given IV fluids per sepsis protocol he was more short of breath and was intubated -10/04: Intubated in the ER for impending respiratory failure likely related to CHF Vent management per ICU (2) Septic shock: Code(s): A41.9 - Sepsis, unspecified organism; R65.21 - Severe sepsis with septic shock Status: Acute Assessment and Plan: Patient with hypotension, likely related to pneumonia, possible lower abdomen cellulitis as seen on the CT scan. Could be related to heart failure -10/04: patient received 3.5 L IV fluid bolus in the ER, despite which his blood pressures remain low, is right-sided IJ central line was inserted, patient started on Levophed -upon arrival to the ICU patient was on Levophed 20 mcg/min with systolic blood pressures in the 80s, I advised the bedside RN to go up on the Levophed and ordered vasopressin -will maintain MAP > 65 mmHg or SBP > 100 mmHg -patient had does have a provided pulse pressure -will obtain troponin -will repeat echocardiogram echocardiogram -lactic acid was 5.9 on admission, repeat was 4.2 -will trend lactic acid -patient was given 1 dose of ceftriaxone and azithromycin in the ER -given history of alcoholism, cocaine abuse started on cefepime, vancomycin and azithromycin (10/04) -10/04: Blood cultures have been obtained -10/04: Urine cultures obtained and pain -10/04: sputum culture obtained and pending -10/04: Obtain urine Legionella and strep pneumo antigen, pending -chest x-ray shows Pulmonary vascular congestion, hold additional IV fluid -receiving albumin for intravascular volume expansion 10/05: Patient has multi-system organ failure, 01/16/2025: Echocardiogram Summary 1. Left ventricular chamber dimension is normal. 2. Left ventricular systolic function is normal, estimated at 65-70%. 3. There is mildly increased left ventricular wall thickness. 4. The left ventricular diastolic function is grade I diastolic dysfunction. 5. Right ventricular systolic function is normal. 6. Left atrial chamber dimension is moderately enlarged. 7. Right atrial chamber dimension is moderately enlarged. 8. There is moderate aortic valve calcification. 9. There is moderate to severe aortic valve stenosis with a peak velocity of 407 cm/s, mean gradient of 43 mmHg, and aortic valve area of 1.2 cm2. 10. There is mild aortic valve regurgitation. 11. There is mild to moderate tricuspid valve regurgitation. 12. Pulmonary hypertension, estimated pulmonary arterial systolic pressure is 48 mmHg. (3) MARIO (acute kidney injury): Code(s): N17.9 - Acute kidney failure, unspecified Status: Acute Assessment and Plan: Acute kidney injury, creatinine 1.83 on admission, (1.87-2.19 in January of 2025, prior to that patient's creatinine was 1.10-1.20 in March of 2023) -patient received 3.5 L of IV fluid bolus in the ER -will continue to monitor renal function, electrolytes and urine output -albumin for intravascular volume expansion, hold additional IV fluids due to pulmonary vascular congestion on chest x-ray -10/05: Worsening creatinine, decreased urine output, likely related to rhabdomyolysis, CK levels trending down, continue maintenance IV fluid -nephrology consult Renal ultrasound with no hydronephrosis Creatinine continues to incline. Nephrology following. Poor urine output On Lasix 80 mg IV b.i.d. (4) Acute CHF: Code(s): I50.9 - Heart failure, unspecified Status: Acute Assessment and Plan: Patient has history of CHF, he does take furosemide at home, echocardiogram as above -chest x-ray shows pulmonary vascular congestion after receiving IV fluid -repeat echo 10/05/2025: EF 55-60% abnormal diastolic function severe aortic stenosis [id number] aortic regurgitation mild MR [id number] TR moderate pulmonary hypertension (5) DM2 (diabetes mellitus, type 2): Code(s): E11.9 - Type 2 diabetes mellitus without complications Status: Chronic Assessment and Plan: Accu-Cheks and sliding scale insulin -patient does take Lantus at home, will restart if needed (6) Thrombocytopenia: Code(s): D69.6 - Thrombocytopenia, unspecified Status: Acute Assessment and Plan: Chronic thrombocytopenia could be related to cirrhosis, alcohol use -patient was evaluated by Oncology on 01/28/2023 -continue to monitor, -will transfuse as needed Ultrasound with splenomegaly and ascites noted (7) Cirrhosis: Code(s): K74.60 - Unspecified cirrhosis of liver Status: Acute Assessment and Plan: CT scan of the abdomen and pelvis showed spleen enlargement and cirrhosis -patient also has anasarca -elevated bilirubin ultrasound with splenomegaly and ascites noted (8) Anasarca: Code(s): R60.1 - Generalized edema Status: Acute Assessment and Plan: Likely related to cirrhosis (9) GI bleed: Code(s): K92.2 - Gastrointestinal hemorrhage, unspecified Status: Acute Assessment and Plan: OG tube has blood draining, could be related to trauma secondary to OG tube placement or variceal bleed or gastritis as patient has cirrhosis -Protonix IV q.12 hours -appreciate GI evaluation, no more GI bleeding noted from the OG tube -patient does have cirrhosis, MELD score of 26 (10) Anemia: Code(s): D64.9 - Anemia, unspecified Status: Acute Assessment and Plan: Patient also has anemia with hemoglobin of 10.7 (which is close to his baseline) -will continue to monitor, transfuse for hemoglobin < 7.0 (11) Aortic stenosis: Code(s): I35.0 - Nonrheumatic aortic (valve) stenosis Status: Acute Assessment and Plan: Moderate to severe aortic valve stenosis with mean gradient of 43 mmHg and aortic valve area of 1.2 cm2 -caution with IV fluids -repeat echocardiogram has been ordered (12) NSTEMI (non-ST elevated myocardial infarction): Code(s): I21.4 - Non-ST elevation (NSTEMI) myocardial infarction Status: Acute Assessment and Plan: 10/04: Troponins were 4.720, 8.720 and 13.00. -cardiology was consulted, recommended starting heparin infusion -10/05: Heparin infusion was discontinued as this was thought to be secondary to type 2 myocardial infarction secondary to anemia, hypotension, respiratory failure and septic shock. Plan DVT prophylaxis: SCDs, no chemoprophylaxis due to blood in OG tube likely related to GI bleeding and thrombocytopenia Stress ulcer prophylaxis: Protonix IV q.12 hours Nutrition: NPO for now Code Status: Full code
[2025-10-09] VITALS (38 sets, daily range): BP systolic 117–135; BP diastolic 54–71; PULSE 79–105; RESP 22–23; TEMP 37.1–38.1; O2SAT 93–98
[2025-10-09] MEDS: METOCLOPRAMIDE HCL 10 MG TABLET FEED TUBE ×5 (00:51→23:44)
[2025-10-09] MEDS: metroNIDAZOLE 500 MG/ISO 100ML 500 MG/100 ML BAG 100 MG IVPB ×3 (00:51→16:50)
[2025-10-09] MEDS: ALBUMIN HUMAN 25% 25 GM/100 ML 100 ML IVPB ×5 (00:51→23:44)
[2025-10-09 05:49] LABS: Alveolar/Arterial O2 Gradient 85.3 mmHg; Carboxyhemoglobin 1.6 % THb (0-2.0); Fractional Inspired Oxygen 30 %; HCO3 ABG 22.1 mEq/l (22.0-26.0); Methemoglobin ABG 0.2 %THb (0-1.5); Oxygen Content ABG 11.4 %vol (16.0-22.0); Oxygen Saturation ABG 96.3 % (95.0-100.0); PCO2 ABG 37.5 mmHg (35.0-45.0); PO2 ABG 84.5 mmHg (80.0-100.0); PO2 FiO2 Ratio Arterial Blood 2.82 %; Reduced Hemoglobin 4.0 %THb (0-5.0)
[2025-10-09 05:50] LABS: Modified Allen's Test Pass; Site Drawn RIGHT RADIAL
[2025-10-09 05:51] LABS: Arterial Blood Gas Tidal Volume 500 ml; Arterial Blood Gas Ventilator rate 22 /MIN
[2025-10-09] MEDS: CENTRAL LINE FLUSH 10 ML IV PUSH ×3 (06:04→21:19)
[2025-10-09] MEDS: CENTRAL LINE FLUSH 20 ML IV PUSH (06:04)
[2025-10-09 06:18] LABS: Hematocrit 24.5 % (42.0-52.0); Hemoglobin 7.6 g/dL (14.0-18.0); Immature Granulocyte Percent A 1.0 % (0-0.5); Immature Platelet Fraction Pct 1.7 % (0.9-11.2); Lymphocytes Absolute Auto 0.65 K/mm3 (0.9-3.2); Mean Corpuscular HGB Conc 31.0 g/dl (32-36); Mean Corpuscular Hemoglobin 34.2 pg (26-34); Mean Corpuscular Volume 110.4 fl (80-100); Nucleated Red Blood Cells Absolute Auto 0.000 K/mm3 (0.0-0.012); Nucleated Red Blood Cells Perc 0.0 % (0.0-0.2); Platelet Count Result 43 k/mm3 (150-375); Red Blood Count 2.22 M/mm3 (4.6-6.20); White Blood Count 7.2 K/mm3 (4.5-10.0)
[2025-10-09 06:26] LABS: Alanine Aminotransferase 22 U/L (6-50); Albumin Level 3.8 g/dL (3.5-5.1); Alkaline Phosphatase 83 U/L (38-126); Anion Gap 9 mmol/L (4-12); Aspartate Amino Transferase 70 U/L (17-59); Bilirubin,Total 5.3 mg/dL (0.2-1.3); Blood Urea Nitrogen 73 mg/dL (9-20); Calcium 8.8 mg/dL (8.4-10.2); Carbon Dioxide 23 mmol/L (22-30); Chloride 111 mmol/L (98-107); Estimated CRCL calculation 25 ml/min; Estimated Glomerular Filt Rate 13; Glucose 155 mg/dL (65-110); Magnesium 2.3 mg/dL (1.6-2.3); Potassium 4.4 mmol/L (3.4-5.0); Sodium 143 mmol/L (137-145); Total Protein 7.9 g/dL (6.3-8.2)
[2025-10-09 06:27] LABS: INR 1.7; Prothrombin Time 19.5 Seconds (11.1-14.7)
[2025-10-09 06:28] LABS: Partial Thromboplastin Time 38.7 Seconds (22.3-36.8)
[2025-10-09 07:24] LABS: Hypochromasia 1+; Schistocytes None Seen; Tear Drop Cells Occasional
[2025-10-09] MEDS: IPRATROPIUM BR 0.02% INH SOLN 0.5 MG/2.5 ML VIAL INHALATION (08:14)
[2025-10-09] MEDS: ASPIRIN 81 MG CHEWABLE TABLET PO (08:38)
[2025-10-09] MEDS: FUROSEMIDE INJ 100 MG/10 ML VIAL 80 MG IV PUSH (08:39)
[2025-10-09] MEDS: CEFEPIME 1 GM in SODIUM CHLORIDE 0.9% IV 50 ML 100 ML IVPB ×2 (08:39→21:18)
[2025-10-09] MEDS: LACTULOSE 20 GM/30 ML UDC FEED TUBE ×2 (08:39→16:50)
[2025-10-09] MEDS: MINERAL OIL/WHITE PETROLATUM OINTMENT 1 APPLIC EACH EYE ×2 (08:40→21:18)
[2025-10-09] MEDS: THIAMINE HCL 200 MG/2 ML VIAL 100 MG IV PUSH (08:40)
[2025-10-09] MEDS: PANTOPRAZOLE SODIUM IV 40 MG VIAL IV PUSH ×2 (08:40→21:18)
--- NOTE | 2025-10-09 09:19 | P.PNCA_ITS ---
Progress Note: A&P Assessment and Plan (1) Elevated troponin: Code(s): R79.89 - Other specified abnormal findings of blood chemistry Status: Acute (2) Aortic stenosis: Code(s): I35.0 - Nonrheumatic aortic (valve) stenosis Status: Acute (3) Acute CHF: Code(s): I50.9 - Heart failure, unspecified Status: Acute Plan Assessment: -Acute diastolic heart failure; LVEF 55-60% -Elevated troponin of 4.720, 8.720, 13.00 without chest pain-most likely secondary to above; underlying CAD is also on the differential -Severe aortic stenosis-aortic valve area 0.9 cm2 and mean gradient 43 mm Hg -Other valvular heart disease: Mild to moderate aortic regurgitation, mil [id number] tricuspid regurgitation -Moderate pulmonary hypertension with PASP of 56 mm Hg -Acute hypoxic respiratory failure requiring intubation and sedation- multifactorial secondary to pneumonia, acute congestive heart failure, valvular heart disease -Hypertension but hypotensive at admission requiring pressors-now resolved, weaned off all presents -Sepsis-on IV antibiotics -Thrombocytopenia -49,000 -Anemia-hemoglobin 7.7 -MARIO on CKD -Altered mental status-could be multifactorial given severe MARIO, substance abuse, acute hypoxic respiratory failure, sepsis -Substance abuse-cocaine and cannabis Plan: -Creatinine is worse-up to 4.54 from 4.39, steadily increasing. Stop all diuresis and monitor renal function -Monitor on telemetry -Check and replace electrolytes to keep potassium greater than 4 and magnesium greater than 2 -Unable to add SGLT2 inhibitor as he has history of swelling from Jardiance -Check weight, ins and outs, renal function daily -Resume carvedilol 3.125 mg p.o. b.i.d. when SBP greater than 120 mm Hg -The elevated troponin in the absence of chest pain is most likely due to acute congestive heart failure and underlying acute illness. However patient does have multiple risk factors for CAD including diabetes mellitus, hypertension, middle-aged male. Recommend ischemia evaluation with cardiac catheterization after he recovers from his acute illness -Structural heart disease consult for severe aortic stenosis management after he recovers from his acute illness -Management of other medical problems per primary team Subjective Date/time seen: 10/09/25 09:19 Interval history: Reason for encounter: Elevated troponin Event history: 65-year-old man with PMH of CKD, CHF, DM, BPH, and HTN was found down on the ground by his altered and unable to get up. Patient's called EMS who found him in respiratory distress with an SpO2 of 89% on room air. Patient was brought to the ER at which time he was awake, alert and oriented answering questions. He was febrile, tachycardic, tachypneic, hypoxic requiring supplemental oxygen for assistance, and became hypotensive with BP 62/36. He did not have any complaints of chest pain. No specific complaints of chest pain at that time. Patient's condition deteriorated and he was started on pressors. His respiratory condition deteriorated requiring intubation and mechanical ventilation. He was admitted to the ICU for further care. Workup at presentation include Lactic 5.9, WBC 16K, chronic thrombocytopenia, nongap metabolic acidosis, Cr 1.8, UDS positive for cocaine and cannabinoids, EtOH level 23, CXR-no acute cardiopulmonary findings but possibly pulmonary fibrosis, head CT-no acute intracranial findings, CT chest abdomen pelvis- interstitial pulmonary edema, small right pleural effusion, colonic hepatic flexure wall thickening consistent with colitis and/or malignancy and cirrhosis. Troponin was noted to be elevated at 4.720, 8.720, 13.0, [place] [address], TTE showed LVEF 55-60%, severe aortic stenosis with aortic valve area of 0.9 cm2 and mean gradient of 43 mm Hg, mild to moderate aortic regurgitation, mild to moderate tricuspid regurgitation, moderate pulmonary hypertension with pulmonary artery systolic pressure of 56 mm Hg. Cardiology was consulted for elevated troponin. NSTEMI was ruled out as patient did not have any chest pain. Interval history: Patient not responsive even after being sedation. He remains intubated. No further history can be obtained. Telemetry shows sinus rhythm. Review of Systems Review of Systems: Patient is intubated and sedated and no further history could be obtained from him. Exam Narrative: General: Intubated, not moving any extremities even after sedation was being of Neck: Supple, unable to assess JVD Chest: Bilaterally clear to auscultation, no rales or rhonchi Cardiac: S1, S2 +, regular rate, regular rhythm, no murmurs or rubs Extremities: Bilateral lower extremity edema 1+, no skin rash Neurologic: Intubated, not moving any extremities Objective Data Vital Signs Vital Signs: Vital Signs - 24 hr 10/08/25 10:00 10/08/25 10:00 10/08/25 11:00 Temperature 36.8 C 36.8 C Pulse Rate 82 82 79 Respiratory Rate 22 H 22 H Blood Pressure 120/64 124/62 Pulse Oximetry 95 95 Oxygen Delivery Fraction of Inspired Oxygen 10/08/25 11:03 10/08/25 12:00 10/08/25 12:00 Temperature Pulse Rate 79 78 78 Respiratory Rate 22 H Blood Pressure Pulse Oximetry 95 95 Oxygen Delivery Mechanical Ventilation Mechanical Ventilation Fraction of Inspired Oxygen 30 30 10/08/25 12:00 10/08/25 12:00 10/08/25 13:00 Temperature 36.8 C 36.8 C Pulse Rate 78 78 Respiratory Rate 22 H 22 H Blood Pressure 130/60 129/59 L Pulse Oximetry 95 94 Oxygen Delivery Fraction of Inspired Oxygen 30 10/08/25 14:00 10/08/25 14:00 10/08/25 14:23 Temperature 36.8 C Pulse Rate 78 78 84 Respiratory Rate 22 H Blood Pressure 126/61 Pulse Oximetry 94 96 Oxygen Delivery Mechanical Ventilation Fraction of Inspired Oxygen 30 10/08/25 15:00 10/08/25 16:00 10/08/25 16:00 Temperature 36.8 C Pulse Rate 78 80 78 Respiratory Rate 22 H 22 H Blood Pressure 126/62 Pulse Oximetry 93 95 Oxygen Delivery Mechanical Ventilation Fraction of Inspired Oxygen 30 10/08/25 16:00 10/08/25 16:00 10/08/25 17:00 Temperature 36.9 C 36.9 C Pulse Rate 80 80 Respiratory Rate 22 H 22 H Blood Pressure 131/62 135/63 Pulse Oximetry 95 94 Oxygen Delivery Fraction of Inspired Oxygen 30 10/08/25 17:25 10/08/25 18:00 10/08/25 18:00 Temperature 37.0 C Pulse Rate 78 78 80 Respiratory Rate 22 H Blood Pressure 130/58 L Pulse Oximetry 94 94 Oxygen Delivery Mechanical Ventilation Fraction of Inspired Oxygen 30 10/08/25 19:00 10/08/25 20:00 10/08/25 20:00 Temperature 37.0 C Pulse Rate 80 80 Respiratory Rate 22 H Blood Pressure 134/64 Pulse Oximetry 94 95 Oxygen Delivery Mechanical Ventilation Fraction of Inspired Oxygen 30 10/08/25 20:00 10/08/25 20:58 10/08/25 20:58 Temperature 37.1 C Pulse Rate 80 81 81 Respiratory Rate 22 H 22 H Blood Pressure 132/62 Pulse Oximetry 94 94 94 Oxygen Delivery Mechanical Ventilation Mechanical Ventilation Fraction of Inspired Oxygen 30 30 10/08/25 21:00 10/08/25 21:00 10/08/25 22:00 Temperature 37.2 C Pulse Rate 81 81 Respiratory Rate 22 H Blood Pressure 130/64 Pulse Oximetry 94 Oxygen Delivery Fraction of Inspired Oxygen 30 10/08/25 22:00 10/08/25 23:00 10/08/25 23:39 Temperature 37.2 C 37.2 C Pulse Rate 81 79 80 Respiratory Rate 22 H 22 H Blood Pressure 127/60 126/63 Pulse Oximetry 94 95 95 Oxygen Delivery Mechanical Ventilation Fraction of Inspired Oxygen 30 10/09/25 00:00 10/09/25 00:00 10/09/25 00:00 Temperature 37.2 C Pulse Rate 80 80 Respiratory Rate 22 H Blood Pressure 130/64 Pulse Oximetry 95 94 Oxygen Delivery Mechanical Ventilation Fraction of Inspired Oxygen 30 10/09/25 00:00 10/09/25 01:27 10/09/25 02:00 Temperature 37.2 C Pulse Rate 80 80 Respiratory Rate 23 H Blood Pressure 127/63 Pulse Oximetry 95 Oxygen Delivery Fraction of Inspired Oxygen 30 10/09/25 02:00 10/09/25 02:20 10/09/25 03:45 Temperature 37.2 C 37.3 C Pulse Rate 82 79 81 Respiratory Rate 22 H 22 H Blood Pressure 122/61 Pulse Oximetry 95 95 95 Oxygen Delivery Mechanical Ventilation Fraction of Inspired Oxygen 30 10/09/25 04:00 10/09/25 04:00 10/09/25 04:00 Temperature Pulse Rate 82 Respiratory Rate Blood Pressure Pulse Oximetry 94 Oxygen Delivery Mechanical Ventilation Fraction of Inspired Oxygen 30 30 10/09/25 04:00 10/09/25 04:01 10/09/25 05:01 Temperature 37.3 C 37.3 C 37.1 C Pulse Rate 82 82 105 H Respiratory Rate 22 H 22 H 22 H Blood Pressure 124/64 Pulse Oximetry 94 95 96 Oxygen Delivery Fraction of Inspired Oxygen 10/09/25 05:15 10/09/25 05:53 10/09/25 06:00 Temperature Pulse Rate 102 H Respiratory Rate Blood Pressure 129/71 135/61 Pulse Oximetry 93 Oxygen Delivery Mechanical Ventilation Fraction of Inspired Oxygen 30 10/09/25 06:02 10/09/25 06:27 10/09/25 07:00 Temperature 37.2 C 37.3 C Pulse Rate 100 87 86 Respiratory Rate 22 H 22 H Blood Pressure Pulse Oximetry 93 Oxygen Delivery Fraction of Inspired Oxygen 10/09/25 07:01 10/09/25 08:00 10/09/25 08:00 Temperature 37.3 C Pulse Rate 87 87 87 Respiratory Rate 22 H 22 H Blood Pressure 125/57 L Pulse Oximetry 93 Oxygen Delivery Mechanical Ventilation Fraction of Inspired Oxygen 30 10/09/25 08:00 10/09/25 08:00 Temperature 37.4 C Pulse Rate 87 Respiratory Rate 22 H Blood Pressure 128/63 Pulse Oximetry 97 Oxygen Delivery Fraction of Inspired Oxygen 30 Intake/Output Intake/Output: Intake & Output 10/06/25 10/07/25 10/08/25 10/09/25 23:59 23:59 23:59 23:59 Intake Total 1516.7 1720.7 1943.7 808 Output Total 498 001 0349 675 Balance 916.7 1140.7 543.7 133 Meds/Results Medications: Active Medications Generic Name Dose Route Start Last Admin Trade Name Freq PRN Reason Stop Dose Admin Aspirin 81 mg 10/04/25 17:50 10/09/25 08:38 Aspirin 81 Mg Chewable Tablet PO 81 mg DAILY@0800 VIKA Administration Dextrose 12.5 gm 10/04/25 13:16 Dextrose 50% 25 Gm/50 Ml Syringe IV PUSH PRN PRN Hypoglycemia Protocol Furosemide 80 mg 10/08/25 09:00 10/09/25 08:39 Furosemide Inj 100 Mg/10 Ml Vial IV PUSH 80 mg BID VIKA Administration Glucagon 1 mg 10/04/25 13:16 Glucagon For Inj 1 Mg Vial IM PRN PRN Hypoglycemia Protocol Glucose 15 gm 10/04/25 13:16 Glucose Oral Gel 15 Gm Of Glucse In 37.5 Gm Tube PO PRN PRN Hypoglycemia Protocol Metronidazole 500 mg in 100 mls @ 100 mls/hr 10/04/25 17:00 10/09/25 08:39 Flagyl 500 Mg/Iso Soln 100 Ml IVPB 10/11/25 01:59 100 mls/hr Q8H VIKA Administration Albumin Human 100 mls @ 60 mls/hr 10/04/25 12:00 10/09/25 06:02 Albutein IVPB 60 mls/hr Q6HR VIKA Administration Dextrose 1,000 mls @ 100 mls/hr 10/04/25 13:16 Dextrose 5% 1,000 Ml IVPB PRN PRN Hypoglycemia Protocol Cefepime HCl 1 gm/ Sodium 50 mls @ 100 mls/hr 10/08/25 09:00 10/09/25 08:39 Chloride IVPB 10/10/25 21:29 100 mls/hr Q12H VIKA Administration Insulin Aspart 3 - 6 units 10/04/25 18:00 10/09/25 06:05 Insulin Aspart (*Bkc) 100 Units/Ml SUB-Q Not Given Q6HR VIKA Protocol Ipratropium [place] 0.5 mg 10/07/25 07:43 10/09/25 08:14 Ipratropium Br 0.02% Inh Soln 0.5 Mg/2.5 Ml Vial INHALATION 0.5 mg Q6HRT PRN Administration Wheezing Lactulose 20 gm 10/08/25 09:00 10/09/25 08:39 Lactulose 20 Gm/30 Ml Udc FEED TUBE 20 gm BID VIKA Administration Levalbuterol HCl 0.63 mg 10/07/25 07:44 10/09/25 08:13 Levalbuterol Neb 1.25 Mg/3 Ml INHALATION 0.63 mg Q6HRT PRN Administration Wheezing Metoclopramide HCl 10 mg 10/08/25 08:05 10/09/25 06:04 Metoclopramide Hcl 10 Mg Tablet FEED TUBE 10 mg Q6HR VIKA Administration Multi-Ingred Cream/Lotion/Oil/Oint 1 applic 10/07/25 09:00 10/09/25 08:40 Mineral Oil/White Petrolatum Ointment EACH EYE 1 applic Q12HR VIKA Administration Pantoprazole Sodium 40 mg 10/04/25 21:00 10/09/25 08:40 Pantoprazole Sodium Iv 40 Mg Vial IV PUSH 40 mg Q12HR VIKA Administration Sodium Chloride 10 ml 10/04/25 14:00 10/09/25 06:04 Central Line Flush IV PUSH 10 ml Q8HR VIKA Administration Sodium Chloride 20 ml 10/04/25 09:27 10/09/25 06:04 Central Line Flush IV PUSH 20 ml PRN PRN Administration after blood draws Thiamine HCl 100 mg 10/05/25 09:00 10/09/25 08:40 Thiamine Hcl 200 Mg/2 Ml Vial IV PUSH 100 mg QAM VIKA Administration Radiology Results: ITS Impressions Head CT 10/04/25 07:09 IMPRESSION: 1. No acute intracranial findings. Chest/Abdomen/Pelvis CT 10/04/25 07:26 IMPRESSION: CHEST- 1. Interstitial pulmonary edema and small right pleural effusion. 2. Superimposed pneumonitis or interstitial lung disease not excluded. ABDOMEN/PELVIS- 1. Colonic hepatic flexure wall thickening. Colitis and/or malignancy. 2. Additional findings as above. Renal Ultrasound 10/05/25 13:44 Impression: 1: Unremarkable renal ultrasound. No stones, masses or hydronephrosis. 2: Splenomegaly. 3: Ascites. Chest X-Ray 10/09/25 06:58 Impression: 1: Stable bilateral airspace disease most likely edema. Superimposed pneumonia cannot be excluded. 2: Small pleural effusions. Labs Labs: Laboratory Results - last 24 hr 10/08/25 10/08/25 10/09/25 11:31 17:48 00:43 WBC RBC Hgb Hct MCV MCH MCHC RDW Plt Count MPV Immature Gran % (Auto) Neut % (Auto) Lymph % (Auto) [place] % (Auto) Eos % (Auto) Baso % (Auto) Lymph # (Auto) [place] # (Auto) Eos # (Auto) Baso # (Auto) Abs Immat Gran (auto) Absolute Neuts (auto) Absolute Nucleated RBC Band Neutrophils % Nucleated RBC % Platelet Estimate % Immature Plt Fraction Hypochromasia Tear Drop Cells Schistocytes PT INR APTT Puncture Site ABG pH ABG pCO2 ABG pO2 ABG PO2/FiO2 Ratio ABG HCO3 ABG O2 Saturation ABG O2 Content ABG Base Excess A-a Gradient Oxyhemoglobin Carboxyhemoglobin Methemoglobin Reduced Hemoglobin Total Hemoglobin O2 Delivery Device O2 Liters/Min Minute Volume Vent Rate Vent Mode FiO2 Tidal Volume PEEP Peak Inspir Pressure Pressure Support Sodium Potassium Chloride Carbon Dioxide Anion Gap BUN Creatinine Estim Creat Clear Calc Estimated GFR Glucose POC Capillary Glucose 144 H 150 H 53 L* Lactic Acid Calcium Phosphorus Magnesium Total Bilirubin AST ALT Alkaline Phosphatase Total Protein Albumin 10/09/25 10/09/25 10/09/25 00:45 05:11 05:54 WBC RBC Hgb Hct MCV MCH MCHC RDW Plt Count MPV Immature Gran % (Auto) Neut % (Auto) Lymph % (Auto) [place] % (Auto) Eos % (Auto) Baso % (Auto) Lymph # (Auto) [place] # (Auto) Eos # (Auto) Baso # (Auto) Abs Immat Gran (auto) Absolute Neuts (auto) Absolute Nucleated RBC Band Neutrophils % Nucleated RBC % Platelet Estimate % Immature Plt Fraction Hypochromasia Tear Drop Cells Schistocytes PT INR APTT Puncture Site Right radial ABG pH 7.388 ABG pCO2 37.5 ABG pO2 84.5 ABG PO2/FiO2 Ratio 2.82 ABG HCO3 22.1 ABG O2 Saturation 96.3 ABG O2 Content 11.4 L ABG Base Excess -2.6 A-a Gradient 85.3 Oxyhemoglobin 94.2 Carboxyhemoglobin 1.6 Methemoglobin 0.2 Reduced Hemoglobin 4.0 Total Hemoglobin 8.5 L O2 Delivery Device Ventilator O2 Liters/Min Not Reportable Minute Volume Not Reportable Vent Rate 22 Vent Mode Cmv FiO2 30 Tidal Volume 500 PEEP 10 Peak Inspir Pressure Not Reportable Pressure Support Not Reportable Sodium Potassium Chloride Carbon Dioxide Anion Gap BUN Creatinine Estim Creat Clear Calc Estimated GFR Glucose POC Capillary Glucose 156 H 154 H Lactic Acid Calcium Phosphorus Magnesium Total Bilirubin AST ALT Alkaline Phosphatase Total Protein Albumin 10/09/25 06:01 WBC 7.2 RBC 2.22 L Hgb 7.6 L Hct 24.5 L MCV 110.4 H MCH 34.2 H MCHC 31.0 L RDW 15.6 H Plt Count 43 L MPV 10.2 Immature Gran % (Auto) 1.0 H Neut % (Auto) 76.4 H Lymph % (Auto) 9.1 L [place] % (Auto) 10.3 H Eos % (Auto) 2.9 Baso % (Auto) 0.3 Lymph # (Auto) 0.65 L [place] # (Auto) 0.7 H Eos # (Auto) 0.2 Baso # (Auto) 0.0 Abs Immat Gran (auto) 0.07 H Absolute Neuts (auto) 5.5 Absolute Nucleated RBC 0.000 Band Neutrophils % Not Reportable Nucleated RBC % 0.0 Platelet Estimate Decreased % Immature Plt Fraction 1.7 Hypochromasia 1+ Tear Drop Cells Occasional Schistocytes None seen PT 19.5 H INR 1.7 APTT 38.7 H Puncture Site ABG pH ABG pCO2 ABG pO2 ABG PO2/FiO2 Ratio ABG HCO3 ABG O2 Saturation ABG O2 Content ABG Base Excess A-a Gradient Oxyhemoglobin Carboxyhemoglobin Methemoglobin Reduced Hemoglobin Total Hemoglobin O2 Delivery Device O2 Liters/Min Minute Volume Vent Rate Vent Mode FiO2 Tidal Volume PEEP Peak Inspir Pressure Pressure Support Sodium 143 Potassium 4.4 Chloride 111 H Carbon Dioxide 23 Anion Gap 9 BUN 73 H Creatinine 4.54 H Estim Creat Clear Calc 25 Estimated GFR 13 L Glucose 155 H POC Capillary Glucose Lactic Acid 1.2 Calcium 8.8 Phosphorus 4.8 H Magnesium 2.3 Total Bilirubin 5.3 H AST 70 H ALT 22 Alkaline Phosphatase 83 Total Protein 7.9 Albumin 3.8
--- NOTE | 2025-10-09 10:45 | P.PNNP_ITS ---
Progress Note: A&P Assessment and Plan (1) Acute kidney injury: Code(s): N17.9 - Acute kidney failure, unspecified Status: Acute Assessment and Plan: * as noted by labs on 10/05 (creatinine up to 2.87mg/dL) * admission creatinine at baseline * complicated by diminished urine output and volume overload * however, somewhat responsive to diuretics * suspect multifactorial etiology: * hemodynamic instability/shock * infection/sepsis * hypoxia * cocaine use * CHF * rhabdomyolysis * NSTEMI * pre renal factors * other(?) * evaluation to date noted: * renal ultrasound shows normal kidneys * CK was elevated but trending down (although was high enough to cause damage to the kidneys) * UA shows blood protein and red cells * urine electrolytes (FeNA & FeUrea) reflect a pre renal state * urine eosinophils negative * moderate proteinuria * IV diuretics PRN * still remains at risk for [employer]/dialysis * however, no urgent need at this time * follow trend of repeat labs and UOP (2) Stage 3b chronic kidney disease: Code(s): N18.32 - Chronic kidney disease, stage 3b Status: Chronic Assessment and Plan: * creatinine 1.87mg/dL ~ 8 months ago on hospital discharge * was fluctuating 1.8 - 2.2mg/dL in the context of IV diuresis in January 2025 * prior to that, creatinine was ~ 1.1 - 1.2 in March of 2023 * presumably due to combination of diuretic use for CHF, diabetes, and hypertension +/- vascular disease (3) Septic shock: Code(s): A41.9 - Sepsis, unspecified organism; R65.21 - Severe sepsis with septic shock Status: Acute Assessment and Plan: * presented with hypotension unresponsive to IVF resuscitation * s/p 3.5L IVFs with no improvement in blood pressure * s/p RIJ central line placement and initiation of vasopressor therapy * suspected source include pneumonia, lower abdominal wall cellulitis, and/or heart failure * follow culture data (blood, sputum, and urine) * negative to date * lactic acid has normalized * cultures negative so far * weaned off vasopressor therapy * on antibiotics (4) Acute respiratory failure: Code(s): J96.00 - Acute respiratory failure, unspecified whether with hypoxia or hypercapnia Status: Acute Assessment and Plan: * intubated in ER for impending respiratory failure * noted hypoxia * worsening SOB with IVF resuscitation * decline in respiratory status felt to be secondary to CHF +/- pnuemonia * on bronchodilator therapy * ventilator weaning as tolerated (5) Acute CHF: Code(s): I50.9 - Heart failure, unspecified Status: Acute Assessment and Plan: * known history * admission CXR with pulmonary vascular congestion * last Echo (01/16/25) noted: * left ventricular systolic function is normal, estimated at 65 - 70% * left ventricular diastolic function is grade I diastolic dysfunction * moderate to severe aortic valve stenosis with a peak velocity of 407 cm/s, mean gradient of 43 mmHg, and aortic valve area of 1.2 cm2 * mild aortic valve regurgitation * mild to moderate tricuspid valve regurgitation * pulmonary hypertension, estimated pulmonary arterial systolic pressure is 48 mmHg * repeat Echo (10/05/25) reviewed: * left ventricular systolic function is normal, estimated at 55 - 60% * left ventricular diastolic function is abnormal * severe aortic valve stenosis with a peak velocity of 435 cm/s, mean gradient of 43 mmHg, and aortic valve area of 0.9 cm2 * mild to moderate aortic valve regurgitation * mild mitral valve regurgitation * mild to moderate tricuspid valve regurgitation * moderate pulmonary hypertension, estimated pulmonary arterial systolic pressure is 56 mmHg * trace pulmonic regurgitation * with better hemodynamics, started on IV diuretics * follow I/Os, daily weights, and respiratory status * Cardiology following (6) Anasarca: Code(s): R60.1 - Generalized edema Status: Acute Assessment and Plan: * likely a combination of CHF , MARIO, and liver cirrhosis/hypoalbuminemia * Echo as noted (see #5) * attempting diuresis given better hemodynamics (7) Cirrhosis: Code(s): K74.60 - Unspecified cirrhosis of liver Status: Acute Assessment and Plan: * as noted by CT imaging: * noted spleen enlargement and cirrhosis * also with anasarca * trend bilirubin and LFTs * on lactulose (ammonia level has normalized) * GI following (8) Anemia: Code(s): D64.9 - Anemia, unspecified Status: Acute Assessment and Plan: * as noted * concern for GI loss given bleeding noted from OG tube * this appears to have resolved * suspect related to MARIO, CKD, and liver disease/cirrhosis * PRBC transfusion per protocol * consider PATRICIA given #1 and #2 (9) Thrombocytopenia: Code(s): D69.6 - Thrombocytopenia, unspecified Status: Acute Assessment and Plan: * chronic issue * saw Heme/Onc in the past and this is felt to be related to cirrhosis and alcohol use * platelet transfusion PRN (10) DM2 (diabetes mellitus, type 2): Code(s): E11.9 - Type 2 diabetes mellitus without complications Status: Chronic Assessment and Plan: * follow accu-cheks * glycemic control 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 L Subjective Date/time seen: 10/09/25 10:45 Interval history: Follow-up for acute kidney injury/acute renal failure on chronic kidney disease. Remains intubated and on mechanical ventilation; reasonable urine output in reponse to diuretics but at the expense of renal function/creatinine/BUN; off sedation at this time but still not opening eyes or following commands; no other issues/events overnight or earlier this morning. Exam 2 Narrative: General: WD/WN male intubated on mechanical ventilation Heart: normal S1 and S2; no rub Lungs: coarse breath sounds Abdomen: soft, nontender, nondistended, positive bowel sounds Extremities: no cyanosis or clubbing; 1+ edema Skin: chronic venous stasis/skin changes noted Objective Data Vital Signs Vital Signs: Vital Signs Temp Pulse Resp BP Pulse Ox O2 Del Method FiO2 10/09/25 10:00 99.8 F H 90 22 H 123/54 L 95 10/09/25 10:00 89 10/09/25 09:00 99.4 F 89 22 H 117/59 L 95 10/09/25 08:14 87 22 H 10/09/25 08:14 87 97 Mechanical Ventilation 30 10/09/25 08:00 99.3 F 87 22 H 128/63 97 10/09/25 08:00 30 10/09/25 08:00 87 10/09/25 08:00 87 22 H 93 Mechanical Ventilation 30 10/09/25 07:01 99.1 F 87 22 H 125/57 L 10/09/25 07:00 99.1 F 86 22 H 10/09/25 06:27 87 10/09/25 06:02 98.9 F 100 22 H 93 10/09/25 06:00 135/61 10/09/25 05:53 102 H 93 Mechanical Ventilation 30 10/09/25 05:15 129/71 10/09/25 05:01 98.8 F 105 H 22 H 96 10/09/25 04:01 99.2 F 82 22 H 124/64 95 10/09/25 04:00 99.2 F 82 22 H 94 10/09/25 04:00 94 Mechanical Ventilation 30 10/09/25 04:00 82 10/09/25 04:00 30 10/09/25 03:45 99.2 F 81 22 H 95 10/09/25 02:20 79 95 Mechanical Ventilation 30 10/09/25 02:00 99.0 F 82 22 H 122/61 95 10/09/25 02:00 80 10/09/25 01:27 98.9 F 80 23 H 127/63 95 10/09/25 00:00 30 10/09/25 00:00 94 Mechanical Ventilation 30 10/09/25 00:00 98.9 F 80 22 H 130/64 95 10/09/25 00:00 80 10/08/25 23:39 80 95 Mechanical Ventilation 30 10/08/25 23:00 98.9 F 79 22 H 126/63 95 10/08/25 22:00 98.9 F 81 22 H 127/60 94 10/08/25 22:00 81 10/08/25 21:00 98.9 F 81 22 H 130/64 94 10/08/25 21:00 30 10/08/25 20:58 81 22 H 94 Mechanical Ventilation 30 10/08/25 20:58 81 94 Mechanical Ventilation 30 10/08/25 20:00 98.7 F 80 22 H 132/62 94 10/08/25 20:00 95 Mechanical Ventilation 30 10/08/25 20:00 80 10/08/25 19:00 98.6 F 80 22 H 134/64 94 Intake/Output Intake/Output: Intake & Output 10/06/25 10/07/25 10/08/25 10/09/25 23:59 23:59 23:59 23:59 Intake Total 1516.7 1720.7 1943.7 1864 Output Total 562 601 2109 1125 Balance 916.7 1140.7 543.7 739 Meds/Results Medications: Active Medications Generic Name Dose Route Start Last Admin Trade Name Freq PRN Reason Stop Dose Admin Acetylcysteine 200 mg 10/09/25 14:00 10/09/25 14:29 Acetylcysteine 20% Inhal Soln 800 Mg/4 Ml Vial INHALATION 10/12/25 13:59 200 mg Q6HRT VIKA Administration Aspirin 81 mg 10/04/25 17:50 10/09/25 08:38 Aspirin 81 Mg Chewable Tablet PO 81 mg DAILY@0800 VIKA Administration Dextrose 12.5 gm 10/04/25 13:16 Dextrose 50% 25 Gm/50 Ml Syringe IV PUSH PRN PRN Hypoglycemia Protocol Dornase [place] 2.5 mg 10/09/25 10:40 10/09/25 11:22 Dornase [place] Inh Soln 1 Mg/Ml 2.5 Ml Amp INHALATION 2.5 mg Q12HRT VIKA Administration Glucagon 1 mg 10/04/25 13:16 Glucagon For Inj 1 Mg Vial IM PRN PRN Hypoglycemia Protocol Glucose 15 gm 10/04/25 13:16 Glucose Oral Gel 15 Gm Of Glucse In 37.5 Gm Tube PO PRN PRN Hypoglycemia Protocol Metronidazole 500 mg in 100 mls @ 100 mls/hr 10/04/25 17:00 10/09/25 16:50 Flagyl 500 Mg/Iso Soln 100 Ml IVPB 10/11/25 01:59 100 mls/hr Q8H VIKA Administration Albumin Human 100 mls @ 60 mls/hr 10/04/25 12:00 10/09/25 17:47 Albutein IVPB 60 mls/hr Q6HR VIKA Administration Dextrose 1,000 mls @ 100 mls/hr 10/04/25 13:16 Dextrose 5% 1,000 Ml IVPB PRN PRN Hypoglycemia Protocol Cefepime HCl 1 gm/ Sodium 50 mls @ 100 mls/hr 10/08/25 09:00 10/09/25 09:09 Chloride IVPB 10/10/25 21:29 Infused Q12H VIKA Infusion Insulin Aspart 3 - 6 units 10/04/25 18:00 10/09/25 17:47 Insulin Aspart (*Bkc) 100 Units/Ml SUB-Q Not Given Q6HR [facility] Protocol Ipratropium [place] 0.5 mg 10/07/25 07:43 10/09/25 08:14 Ipratropium Br 0.02% Inh Soln 0.5 Mg/2.5 Ml Vial INHALATION 0.5 mg Q6HRT PRN Administration Wheezing Lactulose 20 gm 10/08/25 09:00 10/09/25 16:50 Lactulose 20 Gm/30 Ml Udc FEED TUBE 20 gm BID VIKA Administration Levalbuterol HCl 0.63 mg 10/07/25 07:44 10/09/25 08:13 Levalbuterol Neb 1.25 Mg/3 Ml INHALATION 0.63 mg Q6HRT PRN Administration Wheezing Metoclopramide HCl 10 mg 10/08/25 08:05 10/09/25 17:47 Metoclopramide Hcl 10 Mg Tablet FEED TUBE 10 mg Q6HR VIKA Administration Multi-Ingred Cream/Lotion/Oil/Oint 1 applic 10/07/25 09:00 10/09/25 08:40 Mineral Oil/White Petrolatum Ointment EACH EYE 1 applic Q12HR VIKA Administration Pantoprazole Sodium 40 mg 10/04/25 21:00 10/09/25 08:40 Pantoprazole Sodium Iv 40 Mg Vial IV PUSH 40 mg Q12HR VIKA Administration Sodium Chloride 10 ml 10/04/25 14:00 10/09/25 14:28 Central Line Flush IV PUSH 10 ml Q8HR VIKA Administration Sodium Chloride 20 ml 10/04/25 09:27 10/09/25 06:04 Central Line Flush IV PUSH 20 ml PRN PRN Administration after blood draws Thiamine HCl 100 mg 10/05/25 09:00 10/09/25 08:40 Thiamine Hcl 200 Mg/2 Ml Vial IV PUSH 100 mg QAM VIKA Administration Radiology Results: ITS Impressions Head CT 10/04/25 07:09 IMPRESSION: 1. No acute intracranial findings. Chest/Abdomen/Pelvis CT 10/04/25 07:26 IMPRESSION: CHEST- 1. Interstitial pulmonary edema and small right pleural effusion. 2. Superimposed pneumonitis or interstitial lung disease not excluded. ABDOMEN/PELVIS- 1. Colonic hepatic flexure wall thickening. Colitis and/or malignancy. 2. Additional findings as above. Renal Ultrasound 10/05/25 13:44 Impression: 1: Unremarkable renal ultrasound. No stones, masses or hydronephrosis. 2: Splenomegaly. 3: Ascites. Chest X-Ray 10/09/25 06:58 Impression: 1: Stable bilateral airspace disease most likely edema. Superimposed pneumonia cannot be excluded. 2: Small pleural effusions. Labs Labs: Laboratory Tests 10/09/25 06:01 10/09/25 06:01 Lactic Acid 1.2 Calcium 8.8 Phosphorus 4.8 H Magnesium 2.3 Total Bilirubin 5.3 H AST 70 H ALT 22 Alkaline Phosphatase 83 Ammonia Total Protein 7.9 Albumin 3.8 Microbiology 10/04/25 15:59 Sputum Sputum White Blood Cells - Final 10/04/25 15:59 Sputum Sputum Epithelial Cells - Final 10/04/25 15:59 Sputum Gram Stain Sputum Result 1 - Final 10/04/25 15:59 Sputum Gram Stain Sputum Result 2 - Final 10/04/25 15:59 Sputum Gram Stain Sputum Result 3 - Final 10/04/25 15:59 Sputum Gram Stain Sputum Result 4 - Final 10/04/25 15:59 Sputum Gram Stain Evaluation - Final 10/04/25 15:59 Sputum Sputum Culture - Preliminary Pseudomonas aeruginosa Staphylococcus aureus 10/04/25 13:40 Urine - Nasopharyngeal Specimen Source - Final 10/04/25 13:40 Urine - Nasopharyngeal Streptococcus pneumoniae Ag Screen - Final 10/04/25 13:40 Urine - Nasopharyngeal Sterile Body Fluid Culture - Final 10/04/25 13:40 Urine - Nasopharyngeal Organism Identification - Final 10/04/25 13:40 Urine - Nasopharyngeal Microbiology Comment - Final
--- NOTE | 2025-10-09 11:10 | PCNFU ---
Nutrition Follow-Up Complete: Suboptimal Energy Intake as related to mechanical ventilation as evidenced by NPO. goal:Meet estimated nutritional needs Patient will continue current goal. Pt current nutrition is Nepro at at 45 ml/hr. Last recorded weight is 169.6 kg., up from 165.4 kg on admit. Bowel Motility: No BM reported. Labs Reviewed: PO4 4.8, BUN 73, Cr 4.54, Glu 155 Meds Noted:Thiamine, Reglan, Lasix, Lactulose Skin: WNL Additional Notes: Patient remains on mechanical vent. Tube feedings are being tolerated of Nepro at 45 ml/hr. Total Nutrition: 1782 kcal/80 gm protein/727 ml water. Flush 30 ml q 4 hours. No sedation at this time. Agree with diet orders. Will monitor weight, labs, skin, diet orders, meds every Wednesday and Wednesday.
[2025-10-09] MEDS: DORNASE ALFA INH SOLN 1 MG/ML 2.5 ML AMP 2.5 MG INHALATION ×2 (11:22→20:27)
[2025-10-09 11:32] LABS: Ammonia 30 umol/L (9-30)
--- NOTE | 2025-10-09 13:04 | WPDINTPN2 ---
Assessment and Plan Assessment and Plan (1) Acute respiratory failure: Code(s): J96.00 - Acute respiratory failure, unspecified whether with hypoxia or hypercapnia Status: Acute Assessment and Plan: 10/04: Patient presented the ED via EMS with complains of generalized weakness, fevers, shortness of breath and fever. When EMS arrived to his house he was found on the ground, unable to get up off the floor. Patient's O2 sats were in the 80s on room air. Patient was placed on supplemental oxygen. In the ED patient was awake, alert, oriented was able to answer questions. O2 sats were improved but he was hypotensive, once he was given IV fluids per sepsis protocol he was more short of breath and was intubated -10/04: Intubated in the ER for impending respiratory failure likely related to CHF -currently CMV mode of ventilation,PEEP to 10 30% FiO2 -chest x-ray shows pulmonary congestion and ABGs reviewed -wean FiO2 to maintain O2 sats > 92% -continue bronchodilators -sedated with fentany infusion, maintain RASS of 0 to -2 -sedation holiday -10/07 since patient is off of vasopressors. I will start patient on Lasix. Patient will need diuresis secondary to volume overload before weaning trial 10/08 Continue Lasix and diuresis. Off sedation 10/09: Continue diuresis with Lasix, ammonia levels have normal, patient on lactulose (2) Septic shock: Code(s): A41.9 - Sepsis, unspecified organism; R65.21 - Severe sepsis with septic shock Status: Acute Assessment and Plan: Patient with hypotension, likely related to pneumonia, possible lower abdomen cellulitis as seen on the CT scan. Could be related to heart failure -10/04: patient received 3.5 L IV fluid bolus in the ER, despite which his blood pressures remain low, is right-sided IJ central line was inserted, patient started on Levophed Off vasopressors now Overall volume overloaded hence off IV fluids Continue cefepime, metronidazole -STATUS POST azithromycin (10/04). vancomycin DISCONTINUED (10/07) -10/04: Blood cultures PENDING, WILL DEESCALATE -10/04: Urine cultures negative -10/04: sputum culture negative -10/04: Obtain urine Legionella and strep pneumo antigen, negative 01/16/2025: Echocardiogram Summary 1. Left ventricular chamber dimension is normal. 2. Left ventricular systolic function is normal, estimated at 65-70%. 3. There is mildly increased left ventricular wall thickness. 4. The left ventricular diastolic function is grade I diastolic dysfunction. 5. Right ventricular systolic function is normal. 6. Left atrial chamber dimension is moderately enlarged. 7. Right atrial chamber dimension is moderately enlarged. 8. There is moderate aortic valve calcification. 9. There is moderate to severe aortic valve stenosis with a peak velocity of407 cm/s, mean gradient of 43 mmHg, and aortic valve area of 1.2 cm2. 10. There is mild aortic valve regurgitation. 11. There is mild to moderate tricuspid valve regurgitation. 12. Pulmonary hypertension, estimated pulmonary arterial systolic pressure is 48 mmHg. (3) MARIO (acute kidney injury): Code(s): N17.9 - Acute kidney failure, unspecified Status: Acute Assessment and Plan: Acute kidney injury, creatinine 1.83 on admission, (1.87-2.19 in January of 2025, prior to that patient's creatinine was 1.10-1.20 in March of 2023) -patient received 3.5 L of IV fluid bolus in the ER and albumin. Off further IV fluids -10/08 patient was given Lasix over last 24 hours with improved urine output although creatinine continues to increase slightly to 4.39. Continue Lasix. Will discuss with Nephrology. May issue and may still need dialysis although no emergent indication for dialysis at this time. - Nephrology following. -continue to monitor renal function, electrolytes and urine output -10/05/2025: Renal ultrasound did not show any stones, masses or hydronephrosis. Showed splenomegaly, ascites -10/09: Nephrology following the patient, good urine output in response to diuresis, creatinine trending up, discussed with Nephrology, will continue to monitor for now, electrolytes are stable (4) Acute CHF: Code(s): I50.9 - Heart failure, unspecified Status: Acute Assessment and Plan: Patient has history of CHF, he does take furosemide at home, echocardiogram as above -chest x-ray shows pulmonary vascular congestion after receiving IV fluid -normal IV fluids, continue to diuretic -echo as above, diastolic heart failure (5) DM2 (diabetes mellitus, type 2): Code(s): E11.9 - Type 2 diabetes mellitus without complications Status: Chronic Assessment and Plan: Accu-Cheks and sliding scale insulin (6) Thrombocytopenia: Code(s): D69.6 - Thrombocytopenia, unspecified Status: Acute Assessment and Plan: Chronic thrombocytopenia could be related to cirrhosis, alcohol use -patient was evaluated by Oncology on 01/28/2023 -platelets low but stable. Continue to monitor, -will transfuse if needed (7) Cirrhosis: Code(s): K74.60 - Unspecified cirrhosis of liver Status: Acute Assessment and Plan: CT scan of the abdomen and pelvis showed spleen enlargement and cirrhosis -patient also has anasarca -elevated bilirubin -appreciate GI evaluation recommendation -continue lactulose for elevated ammonia, -10/09: Ammonia level at 30, continue lactulose which will also help with constipation (8) Anasarca: Code(s): R60.1 - Generalized edema Status: Acute Assessment and Plan: Likely related to cirrhosis and congestive heart failure Lasix (9) GI bleed: Code(s): K92.2 - Gastrointestinal hemorrhage, unspecified Status: Acute Assessment and Plan: OG tube has blood draining, could be related to trauma secondary to OG tube placement or variceal bleed or gastritis as patient has cirrhosis -Protonix IV q.12 hours -appreciate GI evaluation, no more GI bleeding noted from the OG tube -patient does have cirrhosis, MELD score of 26 (10) Anemia: Code(s): D64.9 - Anemia, unspecified Status: Acute Assessment and Plan: Patient also has anemia with hemoglobin of 10.7 (which is close to his baseline) -will continue to monitor, hemoglobin has been stable, continue to monitor - transfuse for hemoglobin < 7.0 (11) Aortic stenosis: Code(s): I35.0 - Nonrheumatic aortic (valve) stenosis Status: Acute Assessment and Plan: Moderate to severe aortic valve stenosis with mean gradient of 43 mmHg and aortic valve area of 1.2 cm2 -off IV fluids -repeat echocardiogram as above (12) NSTEMI (non-ST elevated myocardial infarction): Code(s): I21.4 - Non-ST elevation (NSTEMI) myocardial infarction Status: Acute Assessment and Plan: 10/04: Troponins were 4.720, 8.720 and 13.00. -cardiology was consulted, recommended starting heparin infusion -10/05: Heparin infusion was discontinued as this was thought to be secondary to type 2 myocardial infarction secondary to anemia, hypotension, respiratory failure and septic shock. -appreciate cardiology evaluation recommendation, no intervention at this time Plan DVT prophylaxis: SCDs, no chemoprophylaxis due to thrombocytopenia, anemia, patient also had bloody drainage from his OG tube on admission which has cleared up Stress ulcer prophylaxis: Protonix IV q.12 hours Nutrition: Continue tube feeds Code Status: Full code Critical Care Time Spent: 35 minutes Due to a high probability of clinically significant, life threatening deterioration, the patient required my highest level of preparedness to intervene emergently and I personally spent this critical care time directly and personally managing the patient. This critical care time included obtaining a history; examining the patient; pulse oximetry; ordering and review of studies; arranging urgent treatment with development of a management plan; evaluation of patient's response to treatment; frequent reassessment; and discussions with other providers. It was exclusive of separately billable procedures and treating other patients and teaching time. Please see Assessment and Plan section and the rest of the note for further information on patient assessment and treatment This dictation may have been done utilizing a voice recognition system. Attempts have been made to correct errors. However, there may be uncorrected grammatical, spelling, and recognitions errors present. Subjective Date/time seen: 10/09/25 13:04 Interval history: Reason for consult: Septic shock, pneumonia, pulmonary vascular congestion, colitis, acute kidney injury 10/09/2025: Patient seen and examined the ICU, remains intubated on CMV mode of ventilation, peep of 10, 30% FiO2. Has been off sedation since 10/08/2025 at 7:00 a.m.. Is not opening his eyes or following simple commands. Winces to pain. Patient has been responding well to diuresis, afebrile, hemodynamically stable Tolerating tube feeds back no bowel movements. Ammonia levels have normalized Review of Systems Review of Systems: ROS unobtainable: Yes unobtainable due to endotracheal tube, unobtainable due to medical condition and unobtainable due to mental status Exam Narrative: General: Intubated, sedated, in no acute distress HEENT:? Pupils equal and reactive, sclera is icteric, ETT in place Neck:? Thick neck, right IJ central line in place Respiratory:? Coarse breath sounds bilaterally, decreased at bases, no wheezing Cardiac:? S1-S2 is normal, sinus tachycardia, 2/6 ejection systolic murmur in the aortic area Abdomen:? Soft, nontender, nondistended, obese, hypoactive bowel sounds, thickening of the skin on the lower part of the abdomen with no redness but warm Extremities:? Bilateral lower extremity pitting edema, dopplerable pedal pulses Neuro:? Patient is intubated, sedated, does not open his eyes or follows simple commands. Patient does does not withdraw to pain Skin:? Chronic venous stasis changes and chronic skin discoloration which is likely due to diabetes according the . Patient also has a callus on the ball of the right toe Psych:? Unable to assess at this time Objective Data Vital Signs Vital Signs: Vital Signs - 24 hr 10/08/25 14:00 10/08/25 14:00 10/08/25 14:23 Temperature 98.3 F Pulse Rate 78 78 84 Respiratory Rate 22 H Blood Pressure 126/61 Pulse Oximetry 94 96 Oxygen Delivery Mechanical Ventilation Fraction of Inspired Oxygen 30 10/08/25 15:00 10/08/25 16:00 10/08/25 16:00 Temperature 98.3 F Pulse Rate 78 80 78 Respiratory Rate 22 H 22 H Blood Pressure 126/62 Pulse Oximetry 93 95 Oxygen Delivery Mechanical Ventilation Fraction of Inspired Oxygen 30 10/08/25 16:00 10/08/25 16:00 10/08/25 17:00 Temperature 98.4 F 98.4 F Pulse Rate 80 80 Respiratory Rate 22 H 22 H Blood Pressure 131/62 135/63 Pulse Oximetry 95 94 Oxygen Delivery Fraction of Inspired Oxygen 30 10/08/25 17:25 10/08/25 18:00 10/08/25 18:00 Temperature 98.6 F Pulse Rate 78 78 80 Respiratory Rate 22 H Blood Pressure 130/58 L Pulse Oximetry 94 94 Oxygen Delivery Mechanical Ventilation Fraction of Inspired Oxygen 30 10/08/25 19:00 10/08/25 20:00 10/08/25 20:00 Temperature 98.6 F Pulse Rate 80 80 Respiratory Rate 22 H Blood Pressure 134/64 Pulse Oximetry 94 95 Oxygen Delivery Mechanical Ventilation Fraction of Inspired Oxygen 30 10/08/25 20:00 10/08/25 20:58 10/08/25 20:58 Temperature 98.7 F Pulse Rate 80 81 81 Respiratory Rate 22 H 22 H Blood Pressure 132/62 Pulse Oximetry 94 94 94 Oxygen Delivery Mechanical Ventilation Mechanical Ventilation Fraction of Inspired Oxygen 30 30 10/08/25 21:00 10/08/25 21:00 10/08/25 22:00 Temperature 98.9 F Pulse Rate 81 81 Respiratory Rate 22 H Blood Pressure 130/64 Pulse Oximetry 94 Oxygen Delivery Fraction of Inspired Oxygen 30 10/08/25 22:00 10/08/25 23:00 10/08/25 23:39 Temperature 98.9 F 98.9 F Pulse Rate 81 79 80 Respiratory Rate 22 H 22 H Blood Pressure 127/60 126/63 Pulse Oximetry 94 95 95 Oxygen Delivery Mechanical Ventilation Fraction of Inspired Oxygen 30 10/09/25 00:00 10/09/25 00:00 10/09/25 00:00 Temperature 98.9 F Pulse Rate 80 80 Respiratory Rate 22 H Blood Pressure 130/64 Pulse Oximetry 95 94 Oxygen Delivery Mechanical Ventilation Fraction of Inspired Oxygen 30 10/09/25 00:00 10/09/25 01:27 10/09/25 02:00 Temperature 98.9 F Pulse Rate 80 80 Respiratory Rate 23 H Blood Pressure 127/63 Pulse Oximetry 95 Oxygen Delivery Fraction of Inspired Oxygen 30 10/09/25 02:00 10/09/25 02:20 10/09/25 03:45 Temperature 99.0 F 99.2 F Pulse Rate 82 79 81 Respiratory Rate 22 H 22 H Blood Pressure 122/61 Pulse Oximetry 95 95 95 Oxygen Delivery Mechanical Ventilation Fraction of Inspired Oxygen 30 10/09/25 04:00 10/09/25 04:00 10/09/25 04:00 Temperature Pulse Rate 82 Respiratory Rate Blood Pressure Pulse Oximetry 94 Oxygen Delivery Mechanical Ventilation Fraction of Inspired Oxygen 30 30 10/09/25 04:00 10/09/25 04:01 10/09/25 05:01 Temperature 99.2 F 99.2 F 98.8 F Pulse Rate 82 82 105 H Respiratory Rate 22 H 22 H 22 H Blood Pressure 124/64 Pulse Oximetry 94 95 96 Oxygen Delivery Fraction of Inspired Oxygen 10/09/25 05:15 10/09/25 05:53 10/09/25 06:00 Temperature Pulse Rate 102 H Respiratory Rate Blood Pressure 129/71 135/61 Pulse Oximetry 93 Oxygen Delivery Mechanical Ventilation Fraction of Inspired Oxygen 30 10/09/25 06:02 10/09/25 06:27 10/09/25 07:00 Temperature 98.9 F 99.1 F Pulse Rate 100 87 86 Respiratory Rate 22 H 22 H Blood Pressure Pulse Oximetry 93 Oxygen Delivery Fraction of Inspired Oxygen 10/09/25 07:01 10/09/25 08:00 10/09/25 08:00 Temperature 99.1 F Pulse Rate 87 87 87 Respiratory Rate 22 H 22 H Blood Pressure 125/57 L Pulse Oximetry 93 Oxygen Delivery Mechanical Ventilation Fraction of Inspired Oxygen 30 10/09/25 08:00 10/09/25 08:00 10/09/25 08:14 Temperature 99.3 F Pulse Rate 87 87 Respiratory Rate 22 H Blood Pressure 128/63 Pulse Oximetry 97 97 Oxygen Delivery Mechanical Ventilation Fraction of Inspired Oxygen 30 30 10/09/25 08:14 10/09/25 09:00 10/09/25 10:00 Temperature 99.4 F Pulse Rate 87 89 89 Respiratory Rate 22 H 22 H Blood Pressure 117/59 L Pulse Oximetry 95 Oxygen Delivery Fraction of Inspired Oxygen 10/09/25 10:00 10/09/25 11:00 10/09/25 12:00 Temperature 99.8 F H 99.8 F H Pulse Rate 90 90 90 Respiratory Rate 22 H 22 H 22 H Blood Pressure 123/54 L 122/54 L Pulse Oximetry 95 95 96 Oxygen Delivery Mechanical Ventilation Fraction of Inspired Oxygen 30 10/09/25 12:00 10/09/25 12:00 10/09/25 12:00 Temperature 100 F H Pulse Rate 90 90 Respiratory Rate 22 H Blood Pressure 126/58 L Pulse Oximetry 96 Oxygen Delivery Fraction of Inspired Oxygen 30 Intake/Output Intake/Output: Intake & Output 10/06/25 10/07/25 10/08/25 10/09/25 23:59 23:59 23:59 23:59 Intake Total 1516.7 1720.7 1943.7 908 Output Total 828 929 8299 675 Balance 916.7 1140.7 543.7 233 Meds/Results Medications: Active Medications Generic Name Dose Route Start Last Admin Trade Name Freq PRN Reason Stop Dose Admin Acetylcysteine 200 mg 10/09/25 14:00 Acetylcysteine 20% Inhal Soln 800 Mg/4 Ml Vial INHALATION 10/12/25 13:59 Q6HRT [facility] Aspirin 81 mg 10/04/25 17:50 10/09/25 08:38 Aspirin 81 Mg Chewable Tablet PO 81 mg DAILY@0800 [facility] Administration Dextrose .5 gm 10/04/25 13:16 Dextrose 50% 25 Gm/50 Ml Syringe IV PUSH PRN PRN Hypoglycemia Protocol Dornase [place] 2.5 mg 10/09/25 10:40 10/09/25 11:22 Dornase [place] Inh Soln 1 Mg/Ml 2.5 Ml Amp INHALATION 2.5 mg Q12HRT VIKA Administration Glucagon 1 mg 10/04/25 13:16 Glucagon For Inj 1 Mg Vial IM PRN PRN Hypoglycemia Protocol Glucose 15 gm 10/04/25 13:16 Glucose Oral Gel 15 Gm Of Glucse In 37.5 Gm Tube PO PRN PRN Hypoglycemia Protocol Metronidazole 500 mg in 100 mls @ 100 mls/hr 10/04/25 17:00 10/09/25 08:39 Flagyl 500 Mg/Iso Soln 100 Ml IVPB 10/11/25 01:59 100 mls/hr Q8H VIKA Administration Albumin Human 100 mls @ 60 mls/hr 10/04/25 12:00 10/09/25 11:51 Albutein IVPB 60 mls/hr Q6HR VIKA Administration Dextrose 1,000 mls @ 100 mls/hr 10/04/25 13:16 Dextrose 5% 1,000 Ml IVPB PRN PRN Hypoglycemia Protocol Cefepime HCl 1 gm/ Sodium 50 mls @ 100 mls/hr 10/08/25 09:00 10/09/25 08:39 Chloride IVPB 10/10/25 21:29 100 mls/hr Q12H VIKA Administration Insulin Aspart 3 - 6 units 10/04/25 18:00 10/09/25 11:52 Insulin Aspart (*Bkc) 100 Units/Ml SUB-Q Not Given Q6HR VIKA Protocol Ipratropium [place] 0.5 mg 10/07/25 07:43 10/09/25 08:14 Ipratropium Br 0.02% Inh Soln 0.5 Mg/2.5 Ml Vial INHALATION 0.5 mg Q6HRT PRN Administration Wheezing Lactulose 20 gm 10/08/25 09:00 10/09/25 08:39 Lactulose 20 Gm/30 Ml Udc FEED TUBE 20 gm BID VIKA Administration Levalbuterol HCl 0.63 mg 10/07/25 07:44 10/09/25 08:13 Levalbuterol Neb 1.25 Mg/3 Ml INHALATION 0.63 mg Q6HRT PRN Administration Wheezing Metoclopramide HCl 10 mg 10/08/25 08:05 10/09/25 11:52 Metoclopramide Hcl 10 Mg Tablet FEED TUBE 10 mg Q6HR VIKA Administration Multi-Ingred Cream/Lotion/Oil/Oint 1 applic 10/07/25 09:00 10/09/25 08:40 Mineral Oil/White Petrolatum Ointment EACH EYE 1 applic Q12HR VIKA Administration Pantoprazole Sodium 40 mg 10/04/25 21:00 10/09/25 08:40 Pantoprazole Sodium Iv 40 Mg Vial IV PUSH 40 mg Q12HR VIKA Administration Sodium Chloride 10 ml 10/04/25 14:00 10/09/25 06:04 Central Line Flush IV PUSH 10 ml Q8HR VIKA Administration Sodium Chloride 20 ml 10/04/25 09:27 10/09/25 06:04 Central Line Flush IV PUSH 20 ml PRN PRN Administration after blood draws Thiamine HCl 100 mg 10/05/25 09:00 10/09/25 08:40 Thiamine Hcl 200 Mg/2 Ml Vial IV PUSH 100 mg QAM VIKA Administration Radiology Results: ITS Impressions Head CT 10/04/25 07:09 IMPRESSION: 1. No acute intracranial findings. Chest/Abdomen/Pelvis CT 10/04/25 07:26 IMPRESSION: CHEST- 1. Interstitial pulmonary edema and small right pleural effusion. 2. Superimposed pneumonitis or interstitial lung disease not excluded. ABDOMEN/PELVIS- 1. Colonic hepatic flexure wall thickening. Colitis and/or malignancy. 2. Additional findings as above. Renal Ultrasound 10/05/25 13:44 Impression: 1: Unremarkable renal ultrasound. No stones, masses or hydronephrosis. 2: Splenomegaly. 3: Ascites. Chest X-Ray 10/09/25 06:58 Impression: 1: Stable bilateral airspace disease most likely edema. Superimposed pneumonia cannot be excluded. 2: Small pleural effusions. Labs Labs: Laboratory Results - last 24 hr 10/08/25 10/09/25 10/09/25 17:48 00:43 00:45 WBC RBC Hgb Hct MCV MCH MCHC RDW Plt Count MPV Immature Gran % (Auto) Neut % (Auto) Lymph % (Auto) [place] % (Auto) Eos % (Auto) Baso % (Auto) Lymph # (Auto) [place] # (Auto) Eos # (Auto) Baso # (Auto) Abs Immat Gran (auto) Absolute Neuts (auto) Absolute Nucleated RBC Band Neutrophils % Nucleated RBC % Platelet Estimate % Immature Plt Fraction Hypochromasia Tear Drop Cells Schistocytes PT INR APTT Puncture Site ABG pH ABG pCO2 ABG pO2 ABG PO2/FiO2 Ratio ABG HCO3 ABG O2 Saturation ABG O2 Content ABG Base Excess A-a Gradient Oxyhemoglobin Carboxyhemoglobin Methemoglobin Reduced Hemoglobin Total Hemoglobin O2 Delivery Device O2 Liters/Min Minute Volume Vent Rate Vent Mode FiO2 Tidal Volume PEEP Peak Inspir Pressure Pressure Support Sodium Potassium Chloride Carbon Dioxide Anion Gap BUN Creatinine Estim Creat Clear Calc Estimated GFR Glucose POC Capillary Glucose 150 H 53 L* 156 H Lactic Acid Calcium Phosphorus Magnesium Total Bilirubin AST ALT Alkaline Phosphatase Ammonia Total Protein Albumin 10/09/25 10/09/25 10/09/25 05:11 05:54 06:01 WBC 7.2 RBC 2.22 L Hgb 7.6 L Hct 24.5 L MCV 110.4 H MCH 34.2 H MCHC 31.0 L RDW 15.6 H Plt Count 43 L MPV 10.2 Immature Gran % (Auto) 1.0 H Neut % (Auto) 76.4 H Lymph % (Auto) 9.1 L [place] % (Auto) 10.3 H Eos % (Auto) 2.9 Baso % (Auto) 0.3 Lymph # (Auto) 0.65 L [place] # (Auto) 0.7 H Eos # (Auto) 0.2 Baso # (Auto) 0.0 Abs Immat Gran (auto) 0.07 H Absolute Neuts (auto) 5.5 Absolute Nucleated RBC 0.000 Band Neutrophils % Not Reportable Nucleated RBC % 0.0 Platelet Estimate Decreased % Immature Plt Fraction 1.7 Hypochromasia 1+ Tear Drop Cells Occasional Schistocytes None seen PT 19.5 H INR 1.7 APTT 38.7 H Puncture Site Right radial ABG pH 7.388 ABG pCO2 37.5 ABG pO2 84.5 ABG PO2/FiO2 Ratio 2.82 ABG HCO3 22.1 ABG O2 Saturation 96.3 ABG O2 Content 11.4 L ABG Base Excess -2.6 A-a Gradient 85.3 Oxyhemoglobin 94.2 Carboxyhemoglobin 1.6 Methemoglobin 0.2 Reduced Hemoglobin 4.0 Total Hemoglobin 8.5 L O2 Delivery Device Ventilator O2 Liters/Min Not Reportable Minute Volume Not Reportable Vent Rate 22 Vent Mode Cmv FiO2 30 Tidal Volume 500 PEEP 10 Peak Inspir Pressure Not Reportable Pressure Support Not Reportable Sodium 143 Potassium 4.4 Chloride 111 H Carbon Dioxide 23 Anion Gap 9 BUN 73 H Creatinine 4.54 H Estim Creat Clear Calc 25 Estimated GFR 13 L Glucose 155 H POC Capillary Glucose 154 H Lactic Acid 1.2 Calcium 8.8 Phosphorus 4.8 H Magnesium 2.3 Total Bilirubin 5.3 H AST 70 H ALT 22 Alkaline Phosphatase 83 Ammonia Total Protein 7.9 Albumin 3.8 10/09/25 10/09/25 10:46 11:50 WBC RBC Hgb Hct MCV MCH MCHC RDW Plt Count MPV Immature Gran % (Auto) Neut % (Auto) Lymph % (Auto) [place] % (Auto) Eos % (Auto) Baso % (Auto) Lymph # (Auto) [place] # (Auto) Eos # (Auto) Baso # (Auto) Abs Immat Gran (auto) Absolute Neuts (auto) Absolute Nucleated RBC Band Neutrophils % Nucleated RBC % Platelet Estimate % Immature Plt Fraction Hypochromasia Tear Drop Cells Schistocytes PT INR APTT Puncture Site ABG pH ABG pCO2 ABG pO2 ABG PO2/FiO2 Ratio ABG HCO3 ABG O2 Saturation ABG O2 Content ABG Base Excess A-a Gradient Oxyhemoglobin Carboxyhemoglobin Methemoglobin Reduced Hemoglobin Total Hemoglobin O2 Delivery Device O2 Liters/Min Minute Volume Vent Rate Vent Mode FiO2 Tidal Volume PEEP Peak Inspir Pressure Pressure Support Sodium Potassium Chloride Carbon Dioxide Anion Gap BUN Creatinine Estim Creat Clear Calc Estimated GFR Glucose POC Capillary Glucose 180 H Lactic Acid Calcium Phosphorus Magnesium Total Bilirubin AST ALT Alkaline Phosphatase Ammonia 30 Total Protein Albumin Quality VTE Prophylaxis VTE prophylaxis: mechanical ordered
[2025-10-09] MEDS: ACETYLCYSTEINE 20% INHAL SOLN 800 MG/4 ML VIAL 200 MG INHALATION ×2 (14:29→20:27)
--- NOTE | 2025-10-09 18:07 | P.PNIM_ITS ---
Assessment and Plan Assessment and Plan (1) Acute respiratory failure: Code(s): J96.00 - Acute respiratory failure, unspecified whether with hypoxia or hypercapnia Status: Acute Assessment and Plan: 10/04: Patient presented the ED via EMS with complains of generalized weakness, fevers, shortness of breath and fever. When EMS arrived to his house he was found on the ground, unable to get up off the floor. Patient's O2 sats were in the 80s on room air. Patient was placed on supplemental oxygen. In the ED patient was awake, alert, oriented was able to answer questions. O2 sats were improved but he was hypotensive, once he was given IV fluids per sepsis protocol he was more short of breath and was intubated -10/04: Intubated in the ER for impending respiratory failure likely related to CHF Vent management per ICU (2) Septic shock: Code(s): A41.9 - Sepsis, unspecified organism; R65.21 - Severe sepsis with septic shock Status: Acute Assessment and Plan: Patient with hypotension, likely related to pneumonia, possible lower abdomen cellulitis as seen on the CT scan. Could be related to heart failure -10/04: patient received 3.5 L IV fluid bolus in the ER, despite which his blood pressures remain low, is right-sided IJ central line was inserted, patient started on Levophed -upon arrival to the ICU patient was on Levophed 20 mcg/min with systolic blood pressures in the 80s, I advised the bedside RN to go up on the Levophed and ordered vasopressin -will maintain MAP > 65 mmHg or SBP > 100 mmHg -patient had does have a provided pulse pressure -will obtain troponin -will repeat echocardiogram echocardiogram -lactic acid was 5.9 on admission, repeat was 4.2 -will trend lactic acid -patient was given 1 dose of ceftriaxone and azithromycin in the ER -given history of alcoholism, cocaine abuse started on cefepime, vancomycin and azithromycin (10/04) -10/04: Blood cultures have been obtained -10/04: Urine cultures obtained and pain -10/04: sputum culture obtained and pending -10/04: Obtain urine Legionella and strep pneumo antigen, pending -chest x-ray shows Pulmonary vascular congestion, hold additional IV fluid -receiving albumin for intravascular volume expansion 10/05: Patient has multi-system organ failure, 01/16/2025: Echocardiogram Summary 1. Left ventricular chamber dimension is normal. 2. Left ventricular systolic function is normal, estimated at 65-70%. 3. There is mildly increased left ventricular wall thickness. 4. The left ventricular diastolic function is grade I diastolic dysfunction. 5. Right ventricular systolic function is normal. 6. Left atrial chamber dimension is moderately enlarged. 7. Right atrial chamber dimension is moderately enlarged. 8. There is moderate aortic valve calcification. 9. There is moderate to severe aortic valve stenosis with a peak velocity of 407 cm/s, mean gradient of 43 mmHg, and aortic valve area of 1.2 cm2. 10. There is mild aortic valve regurgitation. 11. There is mild to moderate tricuspid valve regurgitation. 12. Pulmonary hypertension, estimated pulmonary arterial systolic pressure is 48 mmHg. (3) MARIO (acute kidney injury): Code(s): N17.9 - Acute kidney failure, unspecified Status: Acute Assessment and Plan: Acute kidney injury, creatinine 1.83 on admission, (1.87-2.19 in January of 2025, prior to that patient's creatinine was 1.10-1.20 in March of 2023) -patient received 3.5 L of IV fluid bolus in the ER -will continue to monitor renal function, electrolytes and urine output -albumin for intravascular volume expansion, hold additional IV fluids due to pulmonary vascular congestion on chest x-ray -10/05: Worsening creatinine, decreased urine output, likely related to rhabdomyolysis, CK levels trending down, continue maintenance IV fluid -nephrology consult Renal ultrasound with no hydronephrosis Creatinine continues to incline. Nephrology following. Poor urine output On Lasix 80 mg IV b.i.d. (4) Acute CHF: Code(s): I50.9 - Heart failure, unspecified Status: Acute Assessment and Plan: Patient has history of CHF, he does take furosemide at home, echocardiogram as above -chest x-ray shows pulmonary vascular congestion after receiving IV fluid -repeat echo 10/05/2025: EF 55-60% abnormal diastolic function severe aortic stenosis [id number] aortic regurgitation mild MR [id number] TR moderate pulmonary hypertension (5) DM2 (diabetes mellitus, type 2): Code(s): E11.9 - Type 2 diabetes mellitus without complications Status: Chronic Assessment and Plan: Accu-Cheks and sliding scale insulin -patient does take Lantus at home, will restart if needed (6) Thrombocytopenia: Code(s): D69.6 - Thrombocytopenia, unspecified Status: Acute Assessment and Plan: Chronic thrombocytopenia could be related to cirrhosis, alcohol use -patient was evaluated by Oncology on 01/28/2023 -continue to monitor, -will transfuse as needed Ultrasound with splenomegaly and ascites noted (7) Cirrhosis: Code(s): K74.60 - Unspecified cirrhosis of liver Status: Acute Assessment and Plan: CT scan of the abdomen and pelvis showed spleen enlargement and cirrhosis -patient also has anasarca -elevated bilirubin ultrasound with splenomegaly and ascites noted (8) Anasarca: Code(s): R60.1 - Generalized edema Status: Acute Assessment and Plan: Likely related to cirrhosis (9) GI bleed: Code(s): K92.2 - Gastrointestinal hemorrhage, unspecified Status: Acute Assessment and Plan: OG tube has blood draining, could be related to trauma secondary to OG tube placement or variceal bleed or gastritis as patient has cirrhosis -Protonix IV q.12 hours -appreciate GI evaluation, no more GI bleeding noted from the OG tube -patient does have cirrhosis, MELD score of 26 (10) Anemia: Code(s): D64.9 - Anemia, unspecified Status: Acute Assessment and Plan: Patient also has anemia with hemoglobin of 10.7 (which is close to his baseline) -will continue to monitor, transfuse for hemoglobin < 7.0 (11) Aortic stenosis: Code(s): I35.0 - Nonrheumatic aortic (valve) stenosis Status: Acute Assessment and Plan: Moderate to severe aortic valve stenosis with mean gradient of 43 mmHg and aortic valve area of 1.2 cm2 -caution with IV fluids -repeat echocardiogram has been ordered (12) NSTEMI (non-ST elevated myocardial infarction): Code(s): I21.4 - Non-ST elevation (NSTEMI) myocardial infarction Status: Acute Assessment and Plan: 10/04: Troponins were 4.720, 8.720 and 13.00. -cardiology was consulted, recommended starting heparin infusion -10/05: Heparin infusion was discontinued as this was thought to be secondary to type 2 myocardial infarction secondary to anemia, hypotension, respiratory failure and septic shock. Plan DVT prophylaxis: SCDs, no chemoprophylaxis due to blood in OG tube likely related to GI bleeding and thrombocytopenia Stress ulcer prophylaxis: Protonix IV q.12 hours Nutrition: NPO for now Code Status: Full code Subjective Date/time seen: 10/09/25 18:07 Interval history: HPI:65yo male with history of CKD, CHF, DM, BPH, and HTN who presents to the ED for SOB, weakness, and fever. EMS called a code sepsis from the household based on vital signs and physical exam. Patient was in respiratory distress and breathing heavy. His SpO2 was 89% on room air. He was found down on the ground reportedly altered and not able to get up. Patient on arrival to the ED was awake, alert and oriented answering questions. He was febrile, tachycardic, tachypneic, and hypoxic requiring supplemental ox ygen for assistance. He became HoTN with BP 62/36. No specific complaints of chest pain, abdominal pain, nausea, vomiting, diarrhea. No injuries reported. He states he just does not feel well. No sick contacts at home. No recent hospitalizations per patient. Lactic was 5.9 -> 4.2. COVID, RSV and Influenza PCR was negative. WBC 16K with chronic thrombocytopenia. Nongap metabolic acidosis. CKD noted and stable with Cr at 1.8. MRSA nasal swab negative. UA not consistent with UTI. UDS positive for cocaine and cannabinoids. EtOH level 23. CXR showing no acute cardiopulmonary findings but possibly pulmonary fibrosis. Head CT showing no acute intracranial findings. CT Ch/A/P showing interstitial pulmonary edema, small right pleural effusion, colonic hepatic flexure wall thickening consistent with colitis and/or malignancy and cirrhosis. Cannot exclude superimposed pneumonitis or ILD. Patient's condition deteriorated. Central line was placed and was started on pressors. His respiratory condition deteriorated requiring intubation and mechanical ventilation. ABG 7.27/41/196 on mechanical ventilation. He was admitted to the ICU for further care. Supervisor Kennel was consulted. Patient sed ated and unable to provide hx. No family in the room at this time. 10/05/2025 remains intubated and sedated. Events noted. Heparin drip was started on eventually was discontinued due to down trending H&H. at bedside and reviewed with her 10/06/2025 overnight events noted. Remains intubated and sedated. Labs reviewed. 10/07/2025: Overnight events noted. Remains intubated and sedated. Off both vasopressors today. Urine output is still poor. Labs reviewed and creatinine increased. Off Versed drip this a.m. discussed with nursing staff 10/08/2025: Overnight events noted. Remains intubated and sedated. Labs reviewed. Off vasopressor. Urine output reviewed Off sedation 10/09/2025: Spiked fever this morning. Remains intubated off sedation. Labs reviewed Review of Systems Review of Systems: ROS unobtainable: Yes unobtainable due to medical condition Exam Narrative: General: Intubated, in no acute distress HEENT:? Pupils equal and reactive, sclera is icteric, ETT in place Neck:? Thick neck, right IJ central line in place Respiratory:? Coarse breath sounds bilaterally, decreased at bases, no wheezing Cardiac:? S1-S2 is normal, regular rate and rhythm Abdomen:? Soft, nontender, nondistended, obese, hypoactive bowel sounds, Extremities:? Bilateral lower extremity pitting edema, dopplerable pedal pulses Neuro:? Patient is intubated, sedated, Skin:? Chronic venous stasis changes and chronic skin discoloration Psych:? Unable to assess at this time Objective Data Vital Signs Vital Signs: Vital Signs - 24 hr 10/08/25 19:00 10/08/25 20:00 10/08/25 20:00 Temperature 98.6 F Pulse Rate 80 80 Respiratory Rate 22 H Blood Pressure 134/64 Pulse Oximetry 94 95 Oxygen Delivery Mechanical Ventilation Fraction of Inspired Oxygen 30 10/08/25 20:00 10/08/25 20:58 10/08/25 20:58 Temperature 98.7 F Pulse Rate 80 81 81 Respiratory Rate 22 H 22 H Blood Pressure 132/62 Pulse Oximetry 94 94 94 Oxygen Delivery Mechanical Ventilation Mechanical Ventilation Fraction of Inspired Oxygen 30 30 10/08/25 21:00 10/08/25 21:00 10/08/25 22:00 Temperature 98.9 F Pulse Rate 81 81 Respiratory Rate 22 H Blood Pressure 130/64 Pulse Oximetry 94 Oxygen Delivery Fraction of Inspired Oxygen 30 10/08/25 22:00 10/08/25 23:00 10/08/25 23:39 Temperature 98.9 F 98.9 F Pulse Rate 81 79 80 Respiratory Rate 22 H 22 H Blood Pressure 127/60 126/63 Pulse Oximetry 94 95 95 Oxygen Delivery Mechanical Ventilation Fraction of Inspired Oxygen 30 10/09/25 00:00 10/09/25 00:00 10/09/25 00:00 Temperature 98.9 F Pulse Rate 80 80 Respiratory Rate 22 H Blood Pressure 130/64 Pulse Oximetry 95 94 Oxygen Delivery Mechanical Ventilation Fraction of Inspired Oxygen 30 10/09/25 00:00 10/09/25 01:27 10/09/25 02:00 Temperature 98.9 F Pulse Rate 80 80 Respiratory Rate 23 H Blood Pressure 127/63 Pulse Oximetry 95 Oxygen Delivery Fraction of Inspired Oxygen 30 10/09/25 02:00 10/09/25 02:20 10/09/25 03:45 Temperature 99.0 F 99.2 F Pulse Rate 82 79 81 Respiratory Rate 22 H 22 H Blood Pressure 122/61 Pulse Oximetry 95 95 95 Oxygen Delivery Mechanical Ventilation Fraction of Inspired Oxygen 30 10/09/25 04:00 10/09/25 04:00 10/09/25 04:00 Temperature Pulse Rate 82 Respiratory Rate Blood Pressure Pulse Oximetry 94 Oxygen Delivery Mechanical Ventilation Fraction of Inspired Oxygen 30 30 10/09/25 04:00 10/09/25 04:01 10/09/25 05:01 Temperature 99.2 F 99.2 F 98.8 F Pulse Rate 82 82 105 H Respiratory Rate 22 H 22 H 22 H Blood Pressure 124/64 Pulse Oximetry 94 95 96 Oxygen Delivery Fraction of Inspired Oxygen 10/09/25 05:15 10/09/25 05:53 10/09/25 06:00 Temperature Pulse Rate 102 H Respiratory Rate Blood Pressure 129/71 135/61 Pulse Oximetry 93 Oxygen Delivery Mechanical Ventilation Fraction of Inspired Oxygen 30 10/09/25 06:02 10/09/25 06:27 10/09/25 07:00 Temperature 98.9 F 99.1 F Pulse Rate 100 87 86 Respiratory Rate 22 H 22 H Blood Pressure Pulse Oximetry 93 Oxygen Delivery Fraction of Inspired Oxygen 10/09/25 07:01 10/09/25 08:00 10/09/25 08:00 Temperature 99.1 F Pulse Rate 87 87 87 Respiratory Rate 22 H 22 H Blood Pressure 125/57 L Pulse Oximetry 93 Oxygen Delivery Mechanical Ventilation Fraction of Inspired Oxygen 30 10/09/25 08:00 10/09/25 08:00 10/09/25 08:14 Temperature 99.3 F Pulse Rate 87 87 Respiratory Rate 22 H Blood Pressure 128/63 Pulse Oximetry 97 97 Oxygen Delivery Mechanical Ventilation Fraction of Inspired Oxygen 30 30 10/09/25 08:14 10/09/25 09:00 10/09/25 10:00 Temperature 99.4 F Pulse Rate 87 89 89 Respiratory Rate 22 H 22 H Blood Pressure 117/59 L Pulse Oximetry 95 Oxygen Delivery Fraction of Inspired Oxygen 10/09/25 10:00 10/09/25 11:00 10/09/25 11:20 Temperature 99.8 F H 99.8 F H Pulse Rate 90 90 90 Respiratory Rate 22 H 22 H Blood Pressure 123/54 L 122/54 L Pulse Oximetry 95 95 95 Oxygen Delivery Mechanical Ventilation Fraction of Inspired Oxygen 30 10/09/25 11:20 10/09/25 12:00 10/09/25 12:00 Temperature Pulse Rate 90 90 90 Respiratory Rate 22 H 22 H Blood Pressure Pulse Oximetry 96 Oxygen Delivery Mechanical Ventilation Fraction of Inspired Oxygen 30 10/09/25 12:00 10/09/25 12:00 10/09/25 13:00 Temperature 100 F H 100.2 F H Pulse Rate 90 90 Respiratory Rate 22 H 22 H Blood Pressure 126/58 L 128/56 L Pulse Oximetry 96 96 Oxygen Delivery Fraction of Inspired Oxygen 30 10/09/25 14:00 10/09/25 14:00 10/09/25 14:29 Temperature 100.4 F H Pulse Rate 90 90 87 Respiratory Rate 22 H Blood Pressure 131/59 L Pulse Oximetry 96 96 Oxygen Delivery Mechanical Ventilation Fraction of Inspired Oxygen 30 10/09/25 15:00 10/09/25 16:00 10/09/25 16:00 Temperature 100.4 F H Pulse Rate 98 98 98 Respiratory Rate 22 H 22 H Blood Pressure 132/57 L Pulse Oximetry 95 95 Oxygen Delivery Mechanical Ventilation Fraction of Inspired Oxygen 30 10/09/25 16:00 10/09/25 16:00 10/09/25 17:00 Temperature 100.4 F H 100.5 F H Pulse Rate 98 87 Respiratory Rate 22 H 22 H Blood Pressure 133/59 L 129/56 L Pulse Oximetry 95 95 Oxygen Delivery Fraction of Inspired Oxygen 30 Intake/Output Intake/Output: Intake & Output 10/06/25 10/07/25 10/08/25 10/09/25 23:59 23:59 23:59 23:59 Intake Total 1516.7 1720.7 1943.7 1864 Output Total 108 721 0148 1125 Balance 916.7 1140.7 543.7 739 Meds/Results Medications: Active Medications Generic Name Dose Route Start Last Admin Trade Name Freq PRN Reason Stop Dose Admin Acetylcysteine 200 mg 10/09/25 14:00 10/09/25 14:29 Acetylcysteine 20% Inhal Soln 800 Mg/4 Ml Vial INHALATION 10/12/25 13:59 200 mg Q6HRT VIKA Administration Aspirin 81 mg 10/04/25 17:50 10/09/25 08:38 Aspirin 81 Mg Chewable Tablet PO 81 mg DAILY@0800 VIKA Administration Dextrose 12.5 gm 10/04/25 13:16 Dextrose 50% 25 Gm/50 Ml Syringe IV PUSH PRN PRN Hypoglycemia Protocol Dornase [place] 2.5 mg 10/09/25 10:40 10/09/25 11:22 Dornase [place] Inh Soln 1 Mg/Ml 2.5 Ml Amp INHALATION 2.5 mg Q12HRT VIKA Administration Glucagon 1 mg 10/04/25 13:16 Glucagon For Inj 1 Mg Vial IM PRN PRN Hypoglycemia Protocol Glucose 15 gm 10/04/25 13:16 Glucose Oral Gel 15 Gm Of Glucse In 37.5 Gm Tube PO PRN PRN Hypoglycemia Protocol Metronidazole 500 mg in 100 mls @ 100 mls/hr 10/04/25 17:00 10/09/25 16:50 Flagyl 500 Mg/Iso Soln 100 Ml IVPB 10/11/25 01:59 100 mls/hr Q8H VIKA Administration Albumin Human 100 mls @ 60 mls/hr 10/04/25 12:00 10/09/25 17:47 Albutein IVPB 60 mls/hr Q6HR VIKA Administration Dextrose 1,000 mls @ 100 mls/hr 10/04/25 13:16 Dextrose 5% 1,000 Ml IVPB PRN PRN Hypoglycemia Protocol Cefepime HCl 1 gm/ Sodium 50 mls @ 100 mls/hr 10/08/25 09:00 10/09/25 09:09 Chloride IVPB 10/10/25 21:29 Infused Q12H VIKA Infusion Insulin Aspart 3 - 6 units 10/04/25 18:00 10/09/25 17:47 Insulin Aspart (*Bkc) 100 Units/Ml SUB-Q Not Given Q6HR [facility] Protocol Ipratropium [place] 0.5 mg 10/07/25 07:43 10/09/25 08:14 Ipratropium Br 0.02% Inh Soln 0.5 Mg/2.5 Ml Vial INHALATION 0.5 mg Q6HRT PRN Administration Wheezing Lactulose 20 gm 10/08/25 09:00 10/09/25 16:50 Lactulose 20 Gm/30 Ml Udc FEED TUBE 20 gm BID VIKA Administration Levalbuterol HCl 0.63 mg 10/07/25 07:44 10/09/25 08:13 Levalbuterol Neb 1.25 Mg/3 Ml INHALATION 0.63 mg Q6HRT PRN Administration Wheezing Metoclopramide HCl 10 mg 10/08/25 08:05 10/09/25 17:47 Metoclopramide Hcl 10 Mg Tablet FEED TUBE 10 mg Q6HR VIKA Administration Multi-Ingred Cream/Lotion/Oil/Oint 1 applic 10/07/25 09:00 10/09/25 08:40 Mineral Oil/White Petrolatum Ointment EACH EYE 1 applic Q12HR VIKA Administration Pantoprazole Sodium 40 mg 10/04/25 21:00 10/09/25 08:40 Pantoprazole Sodium Iv 40 Mg Vial IV PUSH 40 mg Q12HR VIKA Administration Sodium Chloride 10 ml 10/04/25 14:00 10/09/25 14:28 Central Line Flush IV PUSH 10 ml Q8HR VIKA Administration Sodium Chloride 20 ml 10/04/25 09:27 10/09/25 06:04 Central Line Flush IV PUSH 20 ml PRN PRN Administration after blood draws Thiamine HCl 100 mg 10/05/25 09:00 10/09/25 08:40 Thiamine Hcl 200 Mg/2 Ml Vial IV PUSH 100 mg QAM VIKA Administration Radiology Results: ITS Impressions Head CT 10/04/25 07:09 IMPRESSION: 1. No acute intracranial findings. Chest/Abdomen/Pelvis CT 10/04/25 07:26 IMPRESSION: CHEST- 1. Interstitial pulmonary edema and small right pleural effusion. 2. Superimposed pneumonitis or interstitial lung disease not excluded. ABDOMEN/PELVIS- 1. Colonic hepatic flexure wall thickening. Colitis and/or malignancy. 2. Additional findings as above. Renal Ultrasound 10/05/25 13:44 Impression: 1: Unremarkable renal ultrasound. No stones, masses or hydronephrosis. 2: Splenomegaly. 3: Ascites. Chest X-Ray 10/09/25 06:58 Impression: 1: Stable bilateral airspace disease most likely edema. Superimposed pneumonia cannot be excluded. 2: Small pleural effusions. Labs Labs: Laboratory Results - last 24 hr 10/09/25 10/09/25 10/09/25 00:43 00:45 05:11 WBC RBC Hgb Hct MCV MCH MCHC RDW Plt Count MPV Immature Gran % (Auto) Neut % (Auto) Lymph % (Auto) [place] % (Auto) Eos % (Auto) Baso % (Auto) Lymph # (Auto) [place] # (Auto) Eos # (Auto) Baso # (Auto) Abs Immat Gran (auto) Absolute Neuts (auto) Absolute Nucleated RBC Band Neutrophils % Nucleated RBC % Platelet Estimate % Immature Plt Fraction Hypochromasia Tear Drop Cells Schistocytes PT INR APTT Puncture Site Right radial ABG pH 7.388 ABG pCO2 37.5 ABG pO2 84.5 ABG PO2/FiO2 Ratio 2.82 ABG HCO3 22.1 ABG O2 Saturation 96.3 ABG O2 Content 11.4 L ABG Base Excess -2.6 A-a Gradient 85.3 Oxyhemoglobin 94.2 Carboxyhemoglobin 1.6 Methemoglobin 0.2 Reduced Hemoglobin 4.0 Total Hemoglobin 8.5 L O2 Delivery Device Ventilator O2 Liters/Min Not Reportable Minute Volume Not Reportable Vent Rate 22 Vent Mode Cmv FiO2 30 Tidal Volume 500 PEEP 10 Peak Inspir Pressure Not Reportable Pressure Support Not Reportable Sodium Potassium Chloride Carbon Dioxide Anion Gap BUN Creatinine Estim Creat Clear Calc Estimated GFR Glucose POC Capillary Glucose 53 L* 156 H Lactic Acid Calcium Phosphorus Magnesium Total Bilirubin AST ALT Alkaline Phosphatase Ammonia Total Protein Albumin 10/09/25 10/09/25 10/09/25 05:54 06:01 10:46 WBC 7.2 RBC 2.22 L Hgb 7.6 L Hct 24.5 L MCV 110.4 H MCH 34.2 H MCHC 31.0 L RDW 15.6 H Plt Count 43 L MPV 10.2 Immature Gran % (Auto) 1.0 H Neut % (Auto) 76.4 H Lymph % (Auto) 9.1 L [place] % (Auto) 10.3 H Eos % (Auto) 2.9 Baso % (Auto) 0.3 Lymph # (Auto) 0.65 L [place] # (Auto) 0.7 H Eos # (Auto) 0.2 Baso # (Auto) 0.0 Abs Immat Gran (auto) 0.07 H Absolute Neuts (auto) 5.5 Absolute Nucleated RBC 0.000 Band Neutrophils % Not Reportable Nucleated RBC % 0.0 Platelet Estimate Decreased % Immature Plt Fraction 1.7 Hypochromasia 1+ Tear Drop Cells Occasional Schistocytes None seen PT 19.5 H INR 1.7 APTT 38.7 H Puncture Site ABG pH ABG pCO2 ABG pO2 ABG PO2/FiO2 Ratio ABG HCO3 ABG O2 Saturation ABG O2 Content ABG Base Excess A-a Gradient Oxyhemoglobin Carboxyhemoglobin Methemoglobin Reduced Hemoglobin Total Hemoglobin O2 Delivery Device O2 Liters/Min Minute Volume Vent Rate Vent Mode FiO2 Tidal Volume PEEP Peak Inspir Pressure Pressure Support Sodium 143 Potassium 4.4 Chloride 111 H Carbon Dioxide 23 Anion Gap 9 BUN 73 H Creatinine 4.54 H Estim Creat Clear Calc 25 Estimated GFR 13 L Glucose 155 H POC Capillary Glucose 154 H Lactic Acid 1.2 Calcium 8.8 Phosphorus 4.8 H Magnesium 2.3 Total Bilirubin 5.3 H AST 70 H ALT 22 Alkaline Phosphatase 83 Ammonia 30 Total Protein 7.9 Albumin 3.8 10/09/25 10/09/25 11:50 15:51 WBC RBC Hgb Hct MCV MCH MCHC RDW Plt Count MPV Immature Gran % (Auto) Neut % (Auto) Lymph % (Auto) [place] % (Auto) Eos % (Auto) Baso % (Auto) Lymph # (Auto) [place] # (Auto) Eos # (Auto) Baso # (Auto) Abs Immat Gran (auto) Absolute Neuts (auto) Absolute Nucleated RBC Band Neutrophils % Nucleated RBC % Platelet Estimate % Immature Plt Fraction Hypochromasia Tear Drop Cells Schistocytes PT INR APTT Puncture Site ABG pH ABG pCO2 ABG pO2 ABG PO2/FiO2 Ratio ABG HCO3 ABG O2 Saturation ABG O2 Content ABG Base Excess A-a Gradient Oxyhemoglobin Carboxyhemoglobin Methemoglobin Reduced Hemoglobin Total Hemoglobin O2 Delivery Device O2 Liters/Min Minute Volume Vent Rate Vent Mode FiO2 Tidal Volume PEEP Peak Inspir Pressure Pressure Support Sodium Potassium Chloride Carbon Dioxide Anion Gap BUN Creatinine Estim Creat Clear Calc Estimated GFR Glucose POC Capillary Glucose 180 H 177 H Lactic Acid Calcium Phosphorus Magnesium Total Bilirubin AST ALT Alkaline Phosphatase Ammonia Total Protein Albumin
[2025-10-10] VITALS (37 sets, daily range): BP systolic 93–136; BP diastolic 48–94; PULSE 73–89; RESP 18–30; TEMP 36.1–37.4; O2SAT 89–97
[2025-10-10] MEDS: metroNIDAZOLE 500 MG/ISO 100ML 500 MG/100 ML BAG 100 MG IVPB ×3 (01:26→18:13)
[2025-10-10] MEDS: ACETYLCYSTEINE 20% INHAL SOLN 800 MG/4 ML VIAL 200 MG INHALATION ×4 (02:27→20:54)
[2025-10-10 05:07] LABS: Alveolar/Arterial O2 Gradient 74.6 mmHg; Carboxyhemoglobin 1.1 % THb (0-2.0); Fractional Inspired Oxygen 30 %; HCO3 ABG 22.1 mEq/l (22.0-26.0); Methemoglobin ABG 0.2 %THb (0-1.5); Oxygen Content ABG 12.6 %vol (16.0-22.0); Oxygen Saturation ABG 97.3 % (95.0-100.0); PCO2 ABG 36.8 mmHg (35.0-45.0); PO2 ABG 96.1 mmHg (80.0-100.0); PO2 FiO2 Ratio Arterial Blood 3.20 %; Reduced Hemoglobin 2.8 %THb (0-5.0)
[2025-10-10 05:55] LABS: Hematocrit 23.6 % (42.0-52.0); Hemoglobin 7.3 g/dL (14.0-18.0); Immature Granulocyte Percent A 1.7 % (0-0.5); Immature Platelet Fraction Pct 2.5 % (0.9-11.2); Lymphocytes Absolute Auto 0.67 K/mm3 (0.9-3.2); Mean Corpuscular HGB Conc 30.9 g/dl (32-36); Mean Corpuscular Hemoglobin 34.4 pg (26-34); Mean Corpuscular Volume 111.3 fl (80-100); Nucleated Red Blood Cells Absolute Auto 0.000 K/mm3 (0.0-0.012); Nucleated Red Blood Cells Perc 0.0 % (0.0-0.2); Platelet Count Result 45 k/mm3 (150-375); Red Blood Count 2.12 M/mm3 (4.6-6.20); White Blood Count 7.1 K/mm3 (4.5-10.0)
[2025-10-10 06:02] LABS: INR 1.7; Prothrombin Time 20.2 Seconds (11.1-14.7)
[2025-10-10 06:03] LABS: Partial Thromboplastin Time 42.9 Seconds (22.3-36.8)
[2025-10-10] MEDS: METOCLOPRAMIDE HCL 10 MG TABLET FEED TUBE ×3 (06:12→18:14)
[2025-10-10] MEDS: ALBUMIN HUMAN 25% 25 GM/100 ML 100 ML IVPB ×4 (06:12→18:12)
[2025-10-10] MEDS: INSULIN ASPART (*BKC) 100 UNITS/ML SUB-Q ×3 (06:12→18:14)
[2025-10-10] MEDS: CENTRAL LINE FLUSH 10 ML IV PUSH ×3 (06:13→21:03)
[2025-10-10 06:16] LABS: Ammonia 11 umol/L (9-30)
[2025-10-10 06:33] LABS: Alanine Aminotransferase 19 U/L (6-50); Albumin Level 3.8 g/dL (3.5-5.1); Alkaline Phosphatase 87 U/L (38-126); Anion Gap 10 mmol/L (4-12); Aspartate Amino Transferase 59 U/L (17-59); Bilirubin,Total 4.7 mg/dL (0.2-1.3); Blood Urea Nitrogen 81 mg/dL (9-20); Calcium 9.1 mg/dL (8.4-10.2); Carbon Dioxide 23 mmol/L (22-30); Chloride 112 mmol/L (98-107); Estimated CRCL calculation 24 ml/min; Estimated Glomerular Filt Rate 13; Glucose 214 mg/dL (65-110); Magnesium 2.6 mg/dL (1.6-2.3); Potassium 4.0 mmol/L (3.4-5.0); Sodium 145 mmol/L (137-145); Total Protein 7.7 g/dL (6.3-8.2)
[2025-10-10 06:54] LABS: Anisocytosis Occasional; Hypochromasia 1+; Macrocytosis 1+ (NORMAL)
[2025-10-10 06:55] LABS: Schistocytes None Seen; Tear Drop Cells Occasional
[2025-10-10] MEDS: DORNASE ALFA INH SOLN 1 MG/ML 2.5 ML AMP 2.5 MG INHALATION ×2 (07:57→20:55)
[2025-10-10] MEDS: CEFEPIME 1 GM in SODIUM CHLORIDE 0.9% IV 50 ML 100 ML IVPB ×2 (09:52→20:41)
[2025-10-10] MEDS: LACTULOSE 20 GM/30 ML UDC FEED TUBE (09:54)
[2025-10-10] MEDS: BUMETANIDE INJ 2.5 MG/10 ML VIAL 1.5 MG IV PUSH (09:54)
[2025-10-10] MEDS: PANTOPRAZOLE SODIUM IV 40 MG VIAL IV PUSH ×2 (09:58→20:41)
[2025-10-10] MEDS: ASPIRIN 81 MG CHEWABLE TABLET PO (10:00)
[2025-10-10] MEDS: THIAMINE HCL 200 MG/2 ML VIAL 100 MG IV PUSH (10:01)
[2025-10-10] MEDS: MINERAL OIL/WHITE PETROLATUM OINTMENT 1 APPLIC EACH EYE ×2 (10:15→21:03)
--- NOTE | 2025-10-10 11:20 | PCFNICU ---
ICU Rounding Note: Pt current nutrition is Nepro at 45 ml/hr. Last recorded weight is 169.6 kg, up from 165.4 kg on admit. Bowel Motility: +BM reported 10/09 Labs Reviewed:PO4 4.6, BUN 81, Cr 4.7, Glu 214 Meds Noted:Thiamine, Flagyl, Reglan Skin: WNL Additional Notes: Patient remains on a mechanical vent. No sedation. Tube feedings of Nepro at 45 ml/hr and tolerating. Flush 30 ml q 4 hours. Plans for breathing trial today. Agree wit diet orders. Following daily in ICU rounds. Will monitor weight, labs, skin, diet orders, meds every Wednesday and Wednesday.
--- NOTE | 2025-10-10 11:25 | P.PNCA_ITS ---
Progress Note: A&P Assessment and Plan (1) Elevated troponin: Code(s): R79.89 - Other specified abnormal findings of blood chemistry Status: Acute (2) Aortic stenosis: Code(s): I35.0 - Nonrheumatic aortic (valve) stenosis Status: Acute (3) Acute CHF: Code(s): I50.9 - Heart failure, unspecified Status: Acute Plan Assessment: -Acute diastolic heart failure; LVEF 55-60% -Elevated troponin of 4.720, 8.720, 13.00 without chest pain-most likely secondary to above; underlying CAD is also on the differential -Severe aortic stenosis-aortic valve area 0.9 cm2 and mean gradient 43 mm Hg -Other valvular heart disease: Mild to moderate aortic regurgitation, mil [id number] tricuspid regurgitation -Moderate pulmonary hypertension with PASP of 56 mm Hg -Acute hypoxic respiratory failure requiring intubation and sedation- multifactorial secondary to pneumonia, acute congestive heart failure, valvular heart disease -Hypertension but hypotensive at admission requiring pressors-now resolved, weaned off all presents -Sepsis-on IV antibiotics -Thrombocytopenia -49,000 -Anemia-hemoglobin 7.7 -MARIO on CKD -Altered mental status-could be multifactorial given severe MARIO, substance abuse, acute hypoxic respiratory failure, sepsis -Substance abuse-cocaine and cannabis Plan: -Creatinine is worse-4.7 today up from 4.54 yesterday. No diuresis and monitor renal function -Monitor on telemetry -Check and replace electrolytes to keep potassium greater than 4 and magnesium greater than 2 -Unable to add SGLT2 inhibitor as he has history of swelling from Jardiance -Check weight, ins and outs, renal function daily -Resume carvedilol 3.125 mg p.o. b.i.d. when SBP greater than 120 mm Hg -The elevated troponin in the absence of chest pain is most likely due to acute congestive heart failure and underlying acute illness. However patient does have multiple risk factors for CAD including diabetes mellitus, hypertension, middle-aged male. Recommend ischemia evaluation with cardiac catheterization after he recovers from his acute illness -Structural heart disease consult for severe aortic stenosis management after he recovers from his acute illness -Patient remains intubated without any purposeful movements even at times when sedation was weaned of. Recommend Neurology evaluation of his neurological status -Management of other medical problems per primary team Subjective Date/time seen: 12/03/25 11:25 Interval history: Reason for encounter: Elevated troponin Event history: 65-year-old man with PMH of CKD, CHF, DM, BPH, and HTN was found down on the ground by his altered and unable to get up. Patient's called EMS who found him in respiratory distress with an SpO2 of 89% on room air. Patient was brought to the ER at which time he was awake, alert and oriented answering questions. He was febrile, tachycardic, tachypneic, hypoxic requiring supplemental oxygen for assistance, and became hypotensive with BP 62/36. He did not have any complaints of chest pain. No specific complaints of chest pain at that time. Patient's condition deteriorated and he was started on pressors. His respiratory condition deteriorated requiring intubation and mechanical ventilation. He was admitted to the ICU for further care. Workup at presentation include Lactic 5.9, WBC 16K, chronic thrombocytopenia, nongap metabolic acidosis, Cr 1.8, UDS positive for cocaine and cannabinoids, EtOH level 23, CXR-no acute cardiopulmonary findings but possibly pulmonary fibrosis, head CT-no acute intracranial findings, CT chest abdomen pelvis- interstitial pulmonary edema, small right pleural effusion, colonic hepatic flexure wall thickening consistent with colitis and/or malignancy and cirrhosis. Troponin was noted to be elevated at 4.720, 8.720, 13.0, [place] [address], TTE showed LVEF 55-60%, severe aortic stenosis with aortic valve area of 0.9 cm2 and mean gradient of 43 mm Hg, mild to moderate aortic regurgitation, mild to moderate tricuspid regurgitation, moderate pulmonary hypertension with pulmonary artery systolic pressure of 56 mm Hg. Cardiology was consulted for elevated troponin. NSTEMI was ruled out as patient did not have any chest pain. Interval history: Patient remains intubated without any purposeful movements. No further history can be obtained. Telemetry shows sinus rhythm. Review of Systems Review of Systems: Patient is intubated and sedated and no further history could be obtained from him. Exam Narrative: General: Intubated, not moving any extremities even after sedation was being of Neck: Supple, unable to assess JVD Chest: Bilaterally clear to auscultation, no rales or rhonchi Cardiac: S1, S2 +, regular rate, regular rhythm, no murmurs or rubs Extremities: Bilateral lower extremity edema 1+, no skin rash Neurologic: Intubated, not moving any extremities Objective Data Vital Signs Vital Signs: Vital Signs - 24 hr 10/09/25 12:00 10/09/25 12:00 10/09/25 12:00 Temperature Pulse Rate 90 90 Respiratory Rate 22 H Blood Pressure Pulse Oximetry 96 Oxygen Delivery Mechanical Ventilation Fraction of Inspired Oxygen 30 30 10/09/25 12:00 10/09/25 13:00 10/09/25 14:00 Temperature 37.7 C H 37.9 C H Pulse Rate 90 90 90 Respiratory Rate 22 H 22 H Blood Pressure 126/58 L 128/56 L Pulse Oximetry 96 96 Oxygen Delivery Fraction of Inspired Oxygen 10/09/25 14:00 10/09/25 14:29 10/09/25 14:29 Temperature 38.0 C H Pulse Rate 90 87 87 Respiratory Rate 22 H 22 H Blood Pressure 131/59 L Pulse Oximetry 96 96 Oxygen Delivery Mechanical Ventilation Fraction of Inspired Oxygen 30 10/09/25 15:00 10/09/25 16:00 10/09/25 16:00 Temperature 38.0 C H Pulse Rate 98 98 98 Respiratory Rate 22 H 22 H Blood Pressure 132/57 L Pulse Oximetry 95 95 Oxygen Delivery Mechanical Ventilation Fraction of Inspired Oxygen 30 10/09/25 16:00 10/09/25 16:00 10/09/25 17:00 Temperature 38.0 C H 38.1 C H Pulse Rate 98 87 Respiratory Rate 22 H 22 H Blood Pressure 133/59 L 129/56 L Pulse Oximetry 95 95 Oxygen Delivery Fraction of Inspired Oxygen 30 10/09/25 17:35 10/09/25 18:00 10/09/25 18:00 Temperature 37.9 C H Pulse Rate 87 87 89 Respiratory Rate 22 H Blood Pressure 124/62 Pulse Oximetry 97 95 Oxygen Delivery Mechanical Ventilation Fraction of Inspired Oxygen 30 10/09/25 19:00 10/09/25 20:00 10/09/25 20:00 Temperature 37.8 C H 37.8 C H Pulse Rate 89 90 Respiratory Rate 22 H 22 H Blood Pressure 128/56 L 127/58 L Pulse Oximetry 95 95 Oxygen Delivery Fraction of Inspired Oxygen 30 10/09/25 20:00 10/09/25 20:00 10/09/25 20:29 Temperature Pulse Rate 89 89 89 Respiratory Rate 22 H Blood Pressure Pulse Oximetry 95 93 Oxygen Delivery Mechanical Ventilation Mechanical Ventilation Fraction of Inspired Oxygen 30 30 10/09/25 20:29 10/09/25 20:38 10/09/25 21:00 Temperature 37.8 C H Pulse Rate 87 89 89 Respiratory Rate 22 H 22 H 22 H Blood Pressure 125/68 Pulse Oximetry 95 Oxygen Delivery Fraction of Inspired Oxygen 10/09/25 22:00 10/09/25 22:00 10/09/25 23:00 Temperature 37.7 C H 37.6 C H Pulse Rate 88 88 88 Respiratory Rate 22 H 22 H Blood Pressure 118/54 L 119/55 L Pulse Oximetry 98 95 Oxygen Delivery Fraction of Inspired Oxygen 10/09/25 23:12 10/10/25 00:00 10/10/25 00:00 Temperature Pulse Rate 88 87 Respiratory Rate Blood Pressure Pulse Oximetry 97 Oxygen Delivery Mechanical Ventilation Fraction of Inspired Oxygen 30 30 10/10/25 00:00 10/10/25 00:00 10/10/25 01:00 Temperature 37.4 C 37.3 C Pulse Rate 87 87 86 Respiratory Rate 22 H 22 H 22 H Blood Pressure 118/57 L 125/61 Pulse Oximetry 95 95 95 Oxygen Delivery Mechanical Ventilation Fraction of Inspired Oxygen 30 10/10/25 02:00 10/10/25 02:00 10/10/25 02:27 Temperature 36.9 C Pulse Rate 84 84 89 Respiratory Rate 22 H Blood Pressure 108/51 L Pulse Oximetry 97 95 Oxygen Delivery Mechanical Ventilation Fraction of Inspired Oxygen 30 10/10/25 02:27 10/10/25 02:41 10/10/25 03:00 Temperature 36.7 C Pulse Rate 89 82 82 Respiratory Rate 22 H 22 H 22 H Blood Pressure 113/58 L Pulse Oximetry 93 Oxygen Delivery Fraction of Inspired Oxygen 10/10/25 04:00 10/10/25 04:00 10/10/25 04:00 Temperature 36.5 C Pulse Rate 82 81 Respiratory Rate 22 H Blood Pressure 119/60 Pulse Oximetry 96 Oxygen Delivery Fraction of Inspired Oxygen 30 10/10/25 04:00 10/10/25 05:00 10/10/25 05:22 Temperature 36.5 C Pulse Rate 81 81 81 Respiratory Rate 22 H 22 H Blood Pressure 116/62 Pulse Oximetry 96 96 97 Oxygen Delivery Mechanical Ventilation Mechanical Ventilation Fraction of Inspired Oxygen 30 30 10/10/25 06:00 10/10/25 06:00 10/10/25 07:00 Temperature 36.3 C L 36.3 C L Pulse Rate 80 80 73 Respiratory Rate 22 H 22 H Blood Pressure 116/60 116/54 L Pulse Oximetry 93 90 Oxygen Delivery Fraction of Inspired Oxygen 10/10/25 07:50 10/10/25 08:00 10/10/25 08:04 Temperature 36.2 C L Pulse Rate 75 76 75 Respiratory Rate 22 H 22 H Blood Pressure 126/73 Pulse Oximetry 93 93 Oxygen Delivery Mechanical Ventilation Fraction of Inspired Oxygen 30 10/10/25 08:07 10/10/25 09:00 10/10/25 10:00 Temperature 36.2 C L 36.1 C L Pulse Rate 81 77 76 Respiratory Rate 22 H 22 H 21 H Blood Pressure 134/63 136/66 Pulse Oximetry 93 92 Oxygen Delivery Fraction of Inspired Oxygen 10/10/25 11:00 10/10/25 11:09 Temperature 36.1 C L Pulse Rate 75 78 Respiratory Rate 22 H Blood Pressure 132/64 Pulse Oximetry 90 89 L Oxygen Delivery Mechanical Ventilation Fraction of Inspired Oxygen 35 Intake/Output Intake/Output: Intake & Output 10/07/25 10/08/25 10/09/25 10/10/25 23:59 23:59 23:59 23:59 Intake Total 1720.7 1943.7 2114 300 Output Total 580 1400 1125 Balance 1140.7 543.7 989 300 Meds/Results Medications: Active Medications Generic Name Dose Route Start Last Admin Trade Name Freq PRN Reason Stop Dose Admin Acetylcysteine 200 mg 10/09/25 14:00 10/10/25 07:57 Acetylcysteine 20% Inhal Soln 800 Mg/4 Ml Vial INHALATION 10/12/25 13:59 200 mg Q6HRT VIKA Administration Aspirin 81 mg 10/04/25 17:50 10/10/25 10:00 Aspirin 81 Mg Chewable Tablet PO 81 mg DAILY@0800 VIKA Administration Dextrose 12.5 gm 10/04/25 13:16 Dextrose 50% 25 Gm/50 Ml Syringe IV PUSH PRN PRN Hypoglycemia Protocol Dornase [place] 2.5 mg 10/09/25 10:40 10/10/25 07:57 Dornase [place] Inh Soln 1 Mg/Ml 2.5 Ml Amp INHALATION 2.5 mg Q12HRT VIKA Administration Glucagon 1 mg 10/04/25 13:16 Glucagon For Inj 1 Mg Vial IM PRN PRN Hypoglycemia Protocol Glucose 15 gm 10/04/25 13:16 Glucose Oral Gel 15 Gm Of Glucse In 37.5 Gm Tube PO PRN PRN Hypoglycemia Protocol Metronidazole 500 mg in 100 mls @ 100 mls/hr 10/04/25 17:00 10/10/25 09:53 Flagyl 500 Mg/Iso Soln 100 Ml IVPB 10/11/25 01:59 100 mls/hr Q8H VIKA Administration Albumin Human 100 mls @ 60 mls/hr 10/04/25 12:00 10/10/25 07:55 Albutein IVPB Infused Q6HR VIKA Infusion Dextrose 1,000 mls @ 100 mls/hr 10/04/25 13:16 Dextrose 5% 1,000 Ml IVPB PRN PRN Hypoglycemia Protocol Cefepime HCl 1 gm/ Sodium 50 mls @ 100 mls/hr 10/08/25 09:00 10/10/25 09:52 Chloride IVPB 10/10/25 21:29 100 mls/hr Q12H VIKA Administration Insulin Aspart 3 - 6 units 10/04/25 18:00 10/10/25 06:12 Insulin Aspart (*Bkc) 100 Units/Ml SUB-Q 3 units Q6HR VIKA Administration Protocol Ipratropium [place] 0.5 mg 10/07/25 07:43 10/09/25 08:14 Ipratropium Br 0.02% Inh Soln 0.5 Mg/2.5 Ml Vial INHALATION 0.5 mg Q6HRT PRN Administration Wheezing Lactulose 20 gm 10/11/25 09:00 Lactulose 20 Gm/30 Ml Udc FEED TUBE DAILY VIKA Levalbuterol HCl 0.63 mg 10/07/25 07:44 10/10/25 07:56 Levalbuterol Neb 1.25 Mg/3 Ml INHALATION 0.63 mg Q6HRT PRN Administration Wheezing Metoclopramide HCl 10 mg 10/08/25 08:05 10/10/25 06:12 Metoclopramide Hcl 10 Mg Tablet FEED TUBE 10 mg Q6HR VIKA Administration Multi-Ingred Cream/Lotion/Oil/Oint 1 applic 10/07/25 09:00 10/10/25 10:15 Mineral Oil/White Petrolatum Ointment EACH EYE 1 applic Q12HR VIKA Administration Pantoprazole Sodium 40 mg 10/04/25 21:00 10/10/25 09:58 Pantoprazole Sodium Iv 40 Mg Vial IV PUSH 40 mg Q12HR VIKA Administration Sodium Chloride 10 ml 10/04/25 14:00 10/10/25 06:13 Central Line Flush IV PUSH 10 ml Q8HR VIKA Administration Sodium Chloride 20 ml 10/04/25 09:27 10/09/25 06:04 Central Line Flush IV PUSH 20 ml PRN PRN Administration after blood draws Thiamine HCl 100 mg 10/05/25 09:00 10/10/25 10:01 Thiamine Hcl 200 Mg/2 Ml Vial IV PUSH 100 mg QAM VIKA Administration Radiology Results: ITS Impressions Head CT 10/04/25 07:09 IMPRESSION: 1. No acute intracranial findings. Chest/Abdomen/Pelvis CT 10/04/25 07:26 IMPRESSION: CHEST- 1. Interstitial pulmonary edema and small right pleural effusion. 2. Superimposed pneumonitis or interstitial lung disease not excluded. ABDOMEN/PELVIS- 1. Colonic hepatic flexure wall thickening. Colitis and/or malignancy. 2. Additional findings as above. Renal Ultrasound 10/05/25 13:44 Impression: 1: Unremarkable renal ultrasound. No stones, masses or hydronephrosis. 2: Splenomegaly. 3: Ascites. Chest X-Ray 10/10/25 08:24 Impression: CHF. Findings appear relatively unchanged. Labs Labs: Laboratory Results - last 24 hr 10/09/25 10/09/25 10/09/25 10:46 11:50 15:51 WBC RBC Hgb Hct MCV MCH MCHC RDW Plt Count MPV Immature Gran % (Auto) Neut % (Auto) Lymph % (Auto) [place] % (Auto) Eos % (Auto) Baso % (Auto) Lymph # (Auto) [place] # (Auto) Eos # (Auto) Baso # (Auto) Abs Immat Gran (auto) Absolute Neuts (auto) Absolute Nucleated RBC Band Neutrophils % Nucleated RBC % Platelet Estimate % Immature Plt Fraction Hypochromasia Anisocytosis Macrocytosis Tear Drop Cells Schistocytes PT INR APTT ABG pH ABG pCO2 ABG pO2 ABG PO2/FiO2 Ratio ABG HCO3 ABG O2 Saturation ABG O2 Content ABG Base Excess A-a Gradient Oxyhemoglobin Carboxyhemoglobin Methemoglobin Reduced Hemoglobin Total Hemoglobin FiO2 Sodium Potassium Chloride Carbon Dioxide Anion Gap BUN Creatinine Estim Creat Clear Calc Estimated GFR Glucose POC Capillary Glucose 180 H 177 H Calcium Phosphorus Magnesium Total Bilirubin AST ALT Alkaline Phosphatase Ammonia 30 Total Protein Albumin 10/09/25 10/10/25 10/10/25 23:48 04:40 05:39 WBC 7.1 RBC 2.12 L Hgb 7.3 L Hct 23.6 L MCV 111.3 H MCH 34.4 H MCHC 30.9 L RDW 15.8 H Plt Count 45 L MPV 10.2 Immature Gran % (Auto) 1.7 H Neut % (Auto) 74.9 H Lymph % (Auto) 9.5 L [place] % (Auto) 10.2 H Eos % (Auto) 3.4 Baso % (Auto) 0.3 Lymph # (Auto) 0.67 L [place] # (Auto) 0.7 H Eos # (Auto) 0.2 Baso # (Auto) 0.0 Abs Immat Gran (auto) 0.12 H Absolute Neuts (auto) 5.3 Absolute Nucleated RBC 0.000 Band Neutrophils % Not Reportable Nucleated RBC % 0.0 Platelet Estimate Decreased % Immature Plt Fraction 2.5 Hypochromasia 1+ Anisocytosis Occasional Macrocytosis 1+ Tear Drop Cells Occasional Schistocytes None seen PT 20.2 H INR 1.7 APTT 42.9 H ABG pH 7.396 ABG pCO2 36.8 ABG pO2 96.1 ABG PO2/FiO2 Ratio 3.20 ABG HCO3 22.1 ABG O2 Saturation 97.3 ABG O2 Content 12.6 L ABG Base Excess -2.4 A-a Gradient 74.6 Oxyhemoglobin 95.9 Carboxyhemoglobin 1.1 Methemoglobin 0.2 Reduced Hemoglobin 2.8 Total Hemoglobin 9.2 L FiO2 30 Sodium 145 Potassium 4.0 Chloride 112 H Carbon Dioxide 23 Anion Gap 10 BUN 81 H Creatinine 4.70 H Estim Creat Clear Calc 24 Estimated GFR 13 L Glucose 214 H POC Capillary Glucose 196 H Calcium 9.1 Phosphorus 4.6 H Magnesium 2.6 H Total Bilirubin 4.7 H AST 59 ALT 19 Alkaline Phosphatase 87 Ammonia 11 Total Protein 7.7 Albumin 3.8 10/10/25 05:42 WBC RBC Hgb Hct MCV MCH MCHC RDW Plt Count MPV Immature Gran % (Auto) Neut % (Auto) Lymph % (Auto) [place] % (Auto) Eos % (Auto) Baso % (Auto) Lymph # (Auto) [place] # (Auto) Eos # (Auto) Baso # (Auto) Abs Immat Gran (auto) Absolute Neuts (auto) Absolute Nucleated RBC Band Neutrophils % Nucleated RBC % Platelet Estimate % Immature Plt Fraction Hypochromasia Anisocytosis Macrocytosis Tear Drop Cells Schistocytes PT INR APTT ABG pH ABG pCO2 ABG pO2 ABG PO2/FiO2 Ratio ABG HCO3 ABG O2 Saturation ABG O2 Content ABG Base Excess A-a Gradient Oxyhemoglobin Carboxyhemoglobin Methemoglobin Reduced Hemoglobin Total Hemoglobin FiO2 Sodium Potassium Chloride Carbon Dioxide Anion Gap BUN Creatinine Estim Creat Clear Calc Estimated GFR Glucose POC Capillary Glucose 208 H Calcium Phosphorus Magnesium Total Bilirubin AST ALT Alkaline Phosphatase Ammonia Total Protein Albumin
--- NOTE | 2025-10-10 12:18 | WPDINTPN2 ---
Assessment and Plan Assessment and Plan (1) Acute respiratory failure: Code(s): J96.00 - Acute respiratory failure, unspecified whether with hypoxia or hypercapnia Status: Acute Assessment and Plan: 10/04: Patient presented the ED via EMS with complains of generalized weakness, fevers, shortness of breath and fever. When EMS arrived to his house he was found on the ground, unable to get up off the floor. Patient's O2 sats were in the 80s on room air. Patient was placed on supplemental oxygen. In the ED patient was awake, alert, oriented was able to answer questions. O2 sats were improved but he was hypotensive, once he was given IV fluids per sepsis protocol he was more short of breath and was intubated -10/04: Intubated in the ER for impending respiratory failure likely related to CHF -currently CMV mode of ventilation,PEEP to 10 30% FiO2 -chest x-ray shows pulmonary congestion and ABGs reviewed -wean FiO2 to maintain O2 sats > 92% -continue bronchodilators -sedated with fentany infusion, maintain RASS of 0 to -2 -sedation holiday -10/07 off of vasopressors. Started on Lasix. Patient will need diuresis secondary to volume overload before weaning trial 10/08 Continue Lasix and diuresis. Off sedation 10/09: Continue diuresis with Lasix, ammonia levels are normal, patient on lactulose 10/10: Will diurese with Bumex and albumin as patient still positive 9 L since admission, and also place patient on pressure support ventilation 10/12 and will continue to wean pressure support, goal is to extubate the patient in the next day or so (2) Septic shock: Code(s): A41.9 - Sepsis, unspecified organism; R65.21 - Severe sepsis with septic shock Status: Acute Assessment and Plan: Patient with hypotension, likely related to pneumonia, possible lower abdomen cellulitis as seen on the CT scan. Could be related to heart failure -10/04: patient received 3.5 L IV fluid bolus in the ER, despite which his blood pressures remain low, is right-sided IJ central line was inserted, patient started on Levophed Off vasopressors now Overall volume overloaded hence off IV fluids Continue cefepime, metronidazole -STATUS POST azithromycin (10/04). vancomycin DISCONTINUED (10/07) -10/04: Blood cultures PENDING, -10/04: Urine cultures negative -10/04: sputum culture growing Pseudomonas and Staphylococcus aureus which was resulted on 10/09/2025 -10/04: Obtain urine Legionella and strep pneumo antigen, negative 01/16/2025: Echocardiogram Summary 1. Left ventricular chamber dimension is normal. 2. Left ventricular systolic function is normal, estimated at 65-70%. 3. There is mildly increased left ventricular wall thickness. 4. The left ventricular diastolic function is grade I diastolic dysfunction. 5. Right ventricular systolic function is normal. 6. Left atrial chamber dimension is moderately enlarged. 7. Right atrial chamber dimension is moderately enlarged. 8. There is moderate aortic valve calcification. 9. There is moderate to severe aortic valve stenosis with a peak velocity of407 cm/s, mean gradient of 43 mmHg, and aortic valve area of 1.2 cm2. 10. There is mild aortic valve regurgitation. 11. There is mild to moderate tricuspid valve regurgitation. 12. Pulmonary hypertension, estimated pulmonary arterial systolic pressure is 48 mmHg. (3) MARIO (acute kidney injury): Code(s): N17.9 - Acute kidney failure, unspecified Status: Acute Assessment and Plan: Acute kidney injury, creatinine 1.83 on admission, (1.87-2.19 in January of 2025, prior to that patient's creatinine was 1.10-1.20 in March of 2023) -patient received 3.5 L of IV fluid bolus in the ER and albumin. Off further IV fluids -10/08 patient was given Lasix over last 24 hours with improved urine output although creatinine continues to increase slightly to 4.39. Continue Lasix. Will discuss with Nephrology. May issue and may still need dialysis although no emergent indication for dialysis at this time. - Nephrology following. -continue to monitor renal function, electrolytes and urine output -10/05/2025: Renal ultrasound did not show any stones, masses or hydronephrosis. Showed splenomegaly, ascites -10/09: Nephrology following the patient, good urine output in response to diuresis, creatinine trending up, discussed with Nephrology, will continue to monitor for now, electrolytes are stable -10/10: Patient with adequate urine output in response to diuresis, creatinine trending up, and electrolytes still stable. Will give albumin and Bumex today since patient has history of cirrhosis (4) Acute CHF: Code(s): I50.9 - Heart failure, unspecified Status: Acute Assessment and Plan: Patient has history of CHF, he does take furosemide at home, echocardiogram as above -chest x-ray shows pulmonary vascular congestion after receiving IV fluid -echo as above, diastolic heart failure (5) DM2 (diabetes mellitus, type 2): Code(s): E11.9 - Type 2 diabetes mellitus without complications Status: Chronic Assessment and Plan: Accu-Cheks and sliding scale insulin (6) Thrombocytopenia: Code(s): D69.6 - Thrombocytopenia, unspecified Status: Acute Assessment and Plan: Chronic thrombocytopenia could be related to cirrhosis, alcohol use -patient was evaluated by Oncology on 01/28/2023 -platelets low but stable. Continue to monitor, -will transfuse if needed (7) Cirrhosis: Code(s): K74.60 - Unspecified cirrhosis of liver Status: Acute Assessment and Plan: CT scan of the abdomen and pelvis showed spleen enlargement and cirrhosis -patient also has anasarca -elevated bilirubin -appreciate GI evaluation recommendation -continue lactulose for elevated ammonia, -10/09: Ammonia level at 30, continue lactulose which will also help with constipation (8) Anasarca: Code(s): R60.1 - Generalized edema Status: Acute Assessment and Plan: Likely related to cirrhosis and congestive heart failure Lasix (9) GI bleed: Code(s): K92.2 - Gastrointestinal hemorrhage, unspecified Status: Acute Assessment and Plan: OG tube has blood draining, could be related to trauma secondary to OG tube placement or variceal bleed or gastritis as patient has cirrhosis -Protonix IV q.12 hours -appreciate GI evaluation, no more GI bleeding noted from the OG tube -patient does have cirrhosis, MELD score of 26 (10) Anemia: Code(s): D64.9 - Anemia, unspecified Status: Acute Assessment and Plan: Patient also has anemia with hemoglobin of 10.7 (which is close to his baseline) -will continue to monitor, hemoglobin has been stable, continue to monitor - transfuse for hemoglobin < 7.0 (11) Aortic stenosis: Code(s): I35.0 - Nonrheumatic aortic (valve) stenosis Status: Acute Assessment and Plan: Moderate to severe aortic valve stenosis with mean gradient of 43 mmHg and aortic valve area of 1.2 cm2 -off IV fluids -repeat echocardiogram as above (12) NSTEMI (non-ST elevated myocardial infarction): Code(s): I21.4 - Non-ST elevation (NSTEMI) myocardial infarction Status: Acute Assessment and Plan: 10/04: Troponins were 4.720, 8.720 and 13.00. -cardiology was consulted, recommended starting heparin infusion -10/05: Heparin infusion was discontinued as this was thought to be secondary to type 2 myocardial infarction secondary to anemia, hypotension, respiratory failure and septic shock. -appreciate cardiology evaluation recommendation, no intervention at this time Plan DVT prophylaxis: SCDs, no chemoprophylaxis due to thrombocytopenia, anemia, patient also had bloody drainage from his OG tube on admission which has cleared up Stress ulcer prophylaxis: Protonix IV q.12 hours Nutrition: Continue tube feeds Code Status: Full code Critical Care Time Spent: 33 minutes Due to a high probability of clinically significant, life threatening deterioration, the patient required my highest level of preparedness to intervene emergently and I personally spent this critical care time directly and personally managing the patient. This critical care time included obtaining a history; examining the patient; pulse oximetry; ordering and review of studies; arranging urgent treatment with development of a management plan; evaluation of patient's response to treatment; frequent reassessment; and discussions with other providers. It was exclusive of separately billable procedures and treating other patients and teaching time. Please see Assessment and Plan section and the rest of the note for further information on patient assessment and treatment This dictation may have been done utilizing a voice recognition system. Attempts have been made to correct errors. However, there may be uncorrected grammatical, spelling, and recognitions errors present. Subjective Date/time seen: 10/10/25 12:18 Interval history: Reason for consult: Septic shock, pneumonia, pulmonary vascular congestion, colitis, acute kidney injury 10/10/2025: Patient seen and examined the ICU, remains intubated on CMV mode of ventilation, peep of 10, 30% FiO2. Off sedation since 10/08/2025 8 7:00 a.m.. Patient opens his eyes, follows simple commands in all extremities. Urine output has been adequate, afebrile, hemodynamically stable Tolerating tube feeds, positive bowel movement Review of Systems Review of Systems: ROS unobtainable: Yes unobtainable due to endotracheal tube, unobtainable due to medical condition and unobtainable due to mental status Exam Narrative: General: Intubated, in no acute distress HEENT:? Pupils equal and reactive, sclera is icteric, ETT in place Neck:? Thick neck, right IJ central line in place Respiratory:? Coarse breath sounds bilaterally, decreased at bases, no wheezing Cardiac:? S1-S2 is normal, regular rate and rhythm, 2/6 ejection systolic murmur in the aortic area Abdomen:? Soft, nontender, nondistended, obese, hypoactive bowel sounds, thickening of the skin on the lower part of the abdomen Extremities:? Bilateral lower extremity pitting edema improving, palpable pedal pulses Neuro:? Patient is intubated, not on any sedation, opens his eyes, follows simple commands in all extremities Skin:? Chronic venous stasis changes and chronic skin discoloration which is likely due to diabetes according the . Patient also has a callus on the ball of the right toe Psych:? Unable to assess at this time Objective Data Vital Signs Vital Signs: Vital Signs - 24 hr 10/09/25 13:00 10/09/25 14:00 10/09/25 14:00 Temperature 100.2 F H 100.4 F H Pulse Rate 90 90 90 Respiratory Rate 22 H 22 H Blood Pressure 128/56 L 131/59 L Pulse Oximetry 96 96 Oxygen Delivery Fraction of Inspired Oxygen 10/09/25 14:29 10/09/25 14:29 10/09/25 15:00 Temperature 100.4 F H Pulse Rate 87 87 98 Respiratory Rate 22 H 22 H Blood Pressure 132/57 L Pulse Oximetry 96 95 Oxygen Delivery Mechanical Ventilation Fraction of Inspired Oxygen 30 10/09/25 16:00 10/09/25 16:00 10/09/25 16:00 Temperature Pulse Rate 98 98 Respiratory Rate 22 H Blood Pressure Pulse Oximetry 95 Oxygen Delivery Mechanical Ventilation Fraction of Inspired Oxygen 30 30 10/09/25 16:00 10/09/25 17:00 10/09/25 17:35 Temperature 100.4 F H 100.5 F H Pulse Rate 98 87 87 Respiratory Rate 22 H 22 H Blood Pressure 133/59 L 129/56 L Pulse Oximetry 95 95 97 Oxygen Delivery Mechanical Ventilation Fraction of Inspired Oxygen 30 10/09/25 18:00 10/09/25 18:00 10/09/25 19:00 Temperature 100.2 F H 100.1 F H Pulse Rate 87 89 89 Respiratory Rate 22 H 22 H Blood Pressure 124/62 128/56 L Pulse Oximetry 95 95 Oxygen Delivery Fraction of Inspired Oxygen 10/09/25 20:00 10/09/25 20:00 10/09/25 20:00 Temperature 100.0 F H Pulse Rate 90 89 Respiratory Rate 22 H Blood Pressure 127/58 L Pulse Oximetry 95 Oxygen Delivery Fraction of Inspired Oxygen 30 10/09/25 20:00 10/09/25 20:29 10/09/25 20:29 Temperature Pulse Rate 89 89 87 Respiratory Rate 22 H 22 H Blood Pressure Pulse Oximetry 95 93 Oxygen Delivery Mechanical Ventilation Mechanical Ventilation Fraction of Inspired Oxygen 30 30 10/09/25 20:38 10/09/25 21:00 10/09/25 22:00 Temperature 100.1 F H Pulse Rate 89 89 88 Respiratory Rate 22 H 22 H Blood Pressure 125/68 Pulse Oximetry 95 Oxygen Delivery Fraction of Inspired Oxygen 10/09/25 22:00 10/09/25 23:00 10/09/25 23:12 Temperature 100 F H 99.7 F H Pulse Rate 88 88 88 Respiratory Rate 22 H 22 H Blood Pressure 118/54 L 119/55 L Pulse Oximetry 98 95 97 Oxygen Delivery Mechanical Ventilation Fraction of Inspired Oxygen 30 10/10/25 00:00 10/10/25 00:00 10/10/25 00:00 Temperature 99.4 F Pulse Rate 87 87 Respiratory Rate 22 H Blood Pressure 118/57 L Pulse Oximetry 95 Oxygen Delivery Fraction of Inspired Oxygen 30 10/10/25 00:00 10/10/25 01:00 10/10/25 02:00 Temperature 99.1 F Pulse Rate 87 86 84 Respiratory Rate 22 H 22 H Blood Pressure 125/61 Pulse Oximetry 95 95 Oxygen Delivery Mechanical Ventilation Fraction of Inspired Oxygen 30 10/10/25 02:00 10/10/25 02:27 10/10/25 02:27 Temperature 98.5 F Pulse Rate 84 89 89 Respiratory Rate 22 H 22 H Blood Pressure 108/51 L Pulse Oximetry 97 95 Oxygen Delivery Mechanical Ventilation Fraction of Inspired Oxygen 30 10/10/25 02:41 10/10/25 03:00 10/10/25 04:00 Temperature 98.0 F 97.7 F Pulse Rate 82 82 82 Respiratory Rate 22 H 22 H 22 H Blood Pressure 113/58 L 119/60 Pulse Oximetry 93 96 Oxygen Delivery Fraction of Inspired Oxygen 10/10/25 04:00 10/10/25 04:00 10/10/25 04:00 Temperature Pulse Rate 81 81 Respiratory Rate 22 H Blood Pressure Pulse Oximetry 96 Oxygen Delivery Mechanical Ventilation Fraction of Inspired Oxygen 30 30 10/10/25 05:00 10/10/25 05:22 10/10/25 06:00 Temperature 97.7 F 97.4 F L Pulse Rate 81 81 80 Respiratory Rate 22 H 22 H Blood Pressure 116/62 116/60 Pulse Oximetry 96 97 93 Oxygen Delivery Mechanical Ventilation Fraction of Inspired Oxygen 30 10/10/25 06:00 10/10/25 07:00 10/10/25 07:50 Temperature 97.3 F L Pulse Rate 80 73 75 Respiratory Rate 22 H 22 H Blood Pressure 116/54 L Pulse Oximetry 90 Oxygen Delivery Fraction of Inspired Oxygen 10/10/25 08:00 10/10/25 08:04 10/10/25 08:07 Temperature 97.2 F L Pulse Rate 76 75 81 Respiratory Rate 22 H 22 H Blood Pressure 126/73 Pulse Oximetry 93 93 Oxygen Delivery Mechanical Ventilation Fraction of Inspired Oxygen 30 10/10/25 09:00 10/10/25 10:00 10/10/25 11:00 Temperature 97.2 F L 97.0 F L 97.0 F L Pulse Rate 77 76 75 Respiratory Rate 22 H 21 H 22 H Blood Pressure 134/63 136/66 132/64 Pulse Oximetry 93 92 90 Oxygen Delivery Fraction of Inspired Oxygen 10/10/25 11:09 Temperature Pulse Rate 78 Respiratory Rate Blood Pressure Pulse Oximetry 89 L Oxygen Delivery Mechanical Ventilation Fraction of Inspired Oxygen 35 Intake/Output Intake/Output: Intake & Output 10/07/25 10/08/25 10/09/25 10/10/25 23:59 23:59 23:59 23:59 Intake Total 1720.7 1943.7 2114 300 Output Total 580 1400 1125 Balance 1140.7 543.7 989 300 Meds/Results Medications: Active Medications Generic Name Dose Route Start Last Admin Trade Name Freq PRN Reason Stop Dose Admin Acetylcysteine 200 mg 10/09/25 14:00 10/10/25 07:57 Acetylcysteine 20% Inhal Soln 800 Mg/4 Ml Vial INHALATION 10/12/25 13:59 200 mg Q6HRT VIKA Administration Aspirin 81 mg 10/04/25 17:50 10/10/25 10:00 Aspirin 81 Mg Chewable Tablet PO 81 mg DAILY@0800 VIKA Administration Dextrose 12.5 gm 10/04/25 13:16 Dextrose 50% 25 Gm/50 Ml Syringe IV PUSH PRN PRN Hypoglycemia Protocol Dornase Darwin 2.5 mg 10/09/25 10:40 10/10/25 07:57 Dornase Darwin Inh Soln 1 Mg/Ml 2.5 Ml Amp INHALATION 2.5 mg Q12HRT VIKA Administration Glucagon 1 mg 10/04/25 13:16 Glucagon For Inj 1 Mg Vial IM PRN PRN Hypoglycemia Protocol Glucose 15 gm 10/04/25 13:16 Glucose Oral Gel 15 Gm Of Glucse In 37.5 Gm Tube PO PRN PRN Hypoglycemia Protocol Metronidazole 500 mg in 100 mls @ 100 mls/hr 10/04/25 17:00 10/10/25 09:53 Flagyl 500 Mg/Iso Soln 100 Ml IVPB 10/11/25 01:59 100 mls/hr Q8H VIKA Administration Albumin Human 100 mls @ 60 mls/hr 10/04/25 12:00 10/10/25 07:55 Albutein IVPB Infused Q6HR VIKA Infusion Dextrose 1,000 mls @ 100 mls/hr 10/04/25 13:16 Dextrose 5% 1,000 Ml IVPB PRN PRN Hypoglycemia Protocol Cefepime HCl 1 gm/ Sodium 50 mls @ 100 mls/hr 10/08/25 09:00 10/10/25 09:52 Chloride IVPB 10/10/25 21:29 100 mls/hr Q12H VIKA Administration Insulin Aspart 3 - 6 units 10/04/25 18:00 10/10/25 06:12 Insulin Aspart (*Bkc) 100 Units/Ml SUB-Q 3 units Q6HR VIKA Administration Protocol Ipratropium Dana 0.5 mg 10/07/25 07:43 10/09/25 08:14 Ipratropium Br 0.02% Inh Soln 0.5 Mg/2.5 Ml Vial INHALATION 0.5 mg Q6HRT PRN Administration Wheezing Lactulose 20 gm 10/11/25 09:00 Lactulose 20 Gm/30 Ml Udc FEED TUBE DAILY VIKA Levalbuterol HCl 0.63 mg 10/07/25 07:44 10/10/25 07:56 Levalbuterol Neb 1.25 Mg/3 Ml INHALATION 0.63 mg Q6HRT PRN Administration Wheezing Metoclopramide HCl 10 mg 10/08/25 08:05 10/10/25 06:12 Metoclopramide Hcl 10 Mg Tablet FEED TUBE 10 mg Q6HR VIKA Administration Multi-Ingred Cream/Lotion/Oil/Oint 1 applic 10/07/25 09:00 10/10/25 10:15 Mineral Oil/White Petrolatum Ointment EACH EYE 1 applic Q12HR VIKA Administration Pantoprazole Sodium 40 mg 10/04/25 21:00 10/10/25 09:58 Pantoprazole Sodium Iv 40 Mg Vial IV PUSH 40 mg Q12HR VIKA Administration Sodium Chloride 10 ml 10/04/25 14:00 10/10/25 06:13 Central Line Flush IV PUSH 10 ml Q8HR VIKA Administration Sodium Chloride 20 ml 10/04/25 09:27 10/09/25 06:04 Central Line Flush IV PUSH 20 ml PRN PRN Administration after blood draws Thiamine HCl 100 mg 10/05/25 09:00 10/10/25 10:01 Thiamine Hcl 200 Mg/2 Ml Vial IV PUSH 100 mg QAM VIKA Administration Radiology Results: ITS Impressions Head CT 10/04/25 07:09 IMPRESSION: 1. No acute intracranial findings. Chest/Abdomen/Pelvis CT 10/04/25 07:26 IMPRESSION: CHEST- 1. Interstitial pulmonary edema and small right pleural effusion. 2. Superimposed pneumonitis or interstitial lung disease not excluded. ABDOMEN/PELVIS- 1. Colonic hepatic flexure wall thickening. Colitis and/or malignancy. 2. Additional findings as above. Renal Ultrasound 10/05/25 13:44 Impression: 1: Unremarkable renal ultrasound. No stones, masses or hydronephrosis. 2: Splenomegaly. 3: Ascites. Chest X-Ray 10/10/25 08:24 Impression: CHF. Findings appear relatively unchanged. Labs Labs: Laboratory Results - last 24 hr 10/09/25 10/09/25 10/10/25 15:51 23:48 04:40 WBC RBC Hgb Hct MCV MCH MCHC RDW Plt Count MPV Immature Gran % (Auto) Neut % (Auto) Lymph % (Auto) [place] % (Auto) Eos % (Auto) Baso % (Auto) Lymph # (Auto) [place] # (Auto) Eos # (Auto) Baso # (Auto) Abs Immat Gran (auto) Absolute Neuts (auto) Absolute Nucleated RBC Band Neutrophils % Nucleated RBC % Platelet Estimate % Immature Plt Fraction Hypochromasia Anisocytosis Macrocytosis Tear Drop Cells Schistocytes PT INR APTT ABG pH 7.396 ABG pCO2 36.8 ABG pO2 96.1 ABG PO2/FiO2 Ratio 3.20 ABG HCO3 22.1 ABG O2 Saturation 97.3 ABG O2 Content 12.6 L ABG Base Excess -2.4 A-a Gradient 74.6 Oxyhemoglobin 95.9 Carboxyhemoglobin 1.1 Methemoglobin 0.2 Reduced Hemoglobin 2.8 Total Hemoglobin 9.2 L FiO2 30 Sodium Potassium Chloride Carbon Dioxide Anion Gap BUN Creatinine Estim Creat Clear Calc Estimated GFR Glucose POC Capillary Glucose 177 H 196 H Calcium Phosphorus Magnesium Total Bilirubin AST ALT Alkaline Phosphatase Ammonia Total Protein Albumin 10/10/25 10/10/25 10/10/25 05:39 05:42 11:50 WBC 7.1 RBC 2.12 L Hgb 7.3 L Hct 23.6 L MCV 111.3 H MCH 34.4 H MCHC 30.9 L RDW 15.8 H Plt Count 45 L MPV 10.2 Immature Gran % (Auto) 1.7 H Neut % (Auto) 74.9 H Lymph % (Auto) 9.5 L [place] % (Auto) 10.2 H Eos % (Auto) 3.4 Baso % (Auto) 0.3 Lymph # (Auto) 0.67 L [place] # (Auto) 0.7 H Eos # (Auto) 0.2 Baso # (Auto) 0.0 Abs Immat Gran (auto) 0.12 H Absolute Neuts (auto) 5.3 Absolute Nucleated RBC 0.000 Band Neutrophils % Not Reportable Nucleated RBC % 0.0 Platelet Estimate Decreased % Immature Plt Fraction 2.5 Hypochromasia 1+ Anisocytosis Occasional Macrocytosis 1+ Tear Drop Cells Occasional Schistocytes None seen PT 20.2 H INR 1.7 APTT 42.9 H ABG pH ABG pCO2 ABG pO2 ABG PO2/FiO2 Ratio ABG HCO3 ABG O2 Saturation ABG O2 Content ABG Base Excess A-a Gradient Oxyhemoglobin Carboxyhemoglobin Methemoglobin Reduced Hemoglobin Total Hemoglobin FiO2 Sodium 145 Potassium 4.0 Chloride 112 H Carbon Dioxide 23 Anion Gap 10 BUN 81 H Creatinine 4.70 H Estim Creat Clear Calc 24 Estimated GFR 13 L Glucose 214 H POC Capillary Glucose 208 H 209 H Calcium 9.1 Phosphorus 4.6 H Magnesium 2.6 H Total Bilirubin 4.7 H AST 59 ALT 19 Alkaline Phosphatase 87 Ammonia 11 Total Protein 7.7 Albumin 3.8 Quality VTE Prophylaxis VTE prophylaxis: mechanical ordered
--- NOTE | 2025-10-10 13:01 | P.PNNP_ITS ---
Progress Note: A&P Assessment and Plan (1) Acute kidney injury: Code(s): N17.9 - Acute kidney failure, unspecified Status: Acute Assessment and Plan: * as noted by labs on 10/05 (creatinine up to 2.87mg/dL) * admission creatinine at baseline * complicated by diminished urine output and volume overload * however, somewhat responsive to diuretics * suspect multifactorial etiology: * hemodynamic instability/shock * infection/sepsis * hypoxia * cocaine use * CHF * rhabdomyolysis * NSTEMI * pre renal factors * other(?) * evaluation to date noted: * renal ultrasound shows normal kidneys * CK was elevated but trending down (although was high enough to cause damage to the kidneys) * UA shows blood protein and red cells * urine electrolytes (FeNA & FeUrea) reflect a pre renal state * urine eosinophils negative * moderate proteinuria * IV diuretics PRN * still 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 * however, no urgent need at this time * follow trend of repeat labs and UOP (2) Stage 3b chronic kidney disease: Code(s): N18.32 - Chronic kidney disease, stage 3b Status: Chronic Assessment and Plan: * creatinine 1.87mg/dL ~ 8 months ago on hospital discharge * was fluctuating 1.8 - 2.2mg/dL in the context of IV diuresis in January 2025 * prior to that, creatinine was ~ 1.1 - 1.2 in March of 2023 * presumably due to combination of diuretic use for CHF, diabetes, and hypertension +/- vascular disease (3) Septic shock: Code(s): A41.9 - Sepsis, unspecified organism; R65.21 - Severe sepsis with septic shock Status: Acute Assessment and Plan: * presented with hypotension unresponsive to IVF resuscitation * s/p 3.5L IVFs with no improvement in blood pressure * s/p RIJ central line placement and initiation of vasopressor therapy * suspected source include pneumonia, lower abdominal wall cellulitis, and/or heart failure * follow culture data (blood, sputum, and urine) * sputum culture with Pseudomonas and Staph aureus * lactic acid has normalized * cultures negative so far * weaned off vasopressor therapy * on antibiotics (4) Acute respiratory failure: Code(s): J96.00 - Acute respiratory failure, unspecified whether with hypoxia or hypercapnia Status: Acute Assessment and Plan: * intubated in ER for impending respiratory failure * noted hypoxia * worsening SOB with IVF resuscitation * decline in respiratory status felt to be secondary to CHF +/- pnuemonia * on bronchodilator therapy * ventilator weaning as tolerated (5) Acute CHF: Code(s): I50.9 - Heart failure, unspecified Status: Acute Assessment and Plan: * known history * admission CXR with pulmonary vascular congestion * last Echo (01/16/25) noted: * left ventricular systolic function is normal, estimated at 65 - 70% * left ventricular diastolic function is grade I diastolic dysfunction * moderate to severe aortic valve stenosis with a peak velocity of 407 cm/s, mean gradient of 43 mmHg, and aortic valve area of 1.2 cm2 * mild aortic valve regurgitation * mild to moderate tricuspid valve regurgitation * pulmonary hypertension, estimated pulmonary arterial systolic pressure is 48 mmHg * repeat Echo (10/05/25) reviewed: * left ventricular systolic function is normal, estimated at 55 - 60% * left ventricular diastolic function is abnormal * severe aortic valve stenosis with a peak velocity of 435 cm/s, mean gradient of 43 mmHg, and aortic valve area of 0.9 cm2 * mild to moderate aortic valve regurgitation * mild mitral valve regurgitation * mild to moderate tricuspid valve regurgitation * moderate pulmonary hypertension, estimated pulmonary arterial systolic pressure is 56 mmHg * trace pulmonic regurgitation * with better hemodynamics, started on IV diuretics * trial of IV albumin chased by diuretics * follow I/Os, daily weights, and respiratory status * Cardiology following (6) Anasarca: Code(s): R60.1 - Generalized edema Status: Acute Assessment and Plan: * likely a combination of CHF , MARIO, and liver cirrhosis/hypoalbuminemia * Echo as noted (see #5) * ongoing diuresis given better hemodynamics (7) Cirrhosis: Code(s): K74.60 - Unspecified cirrhosis of liver Status: Acute Assessment and Plan: * as noted by CT imaging: * noted spleen enlargement and cirrhosis * also with anasarca * trend bilirubin and LFTs * on lactulose (ammonia level has normalized) * GI following (8) Anemia: Code(s): D64.9 - Anemia, unspecified Status: Acute Assessment and Plan: * as noted * concern for GI loss given bleeding noted from OG tube * this appears to have resolved * suspect related to MARIO, CKD, and liver disease/cirrhosis * PRBC transfusion per protocol * consider PATRICIA given #1 and #2 (9) Thrombocytopenia: Code(s): D69.6 - Thrombocytopenia, unspecified Status: Acute Assessment and Plan: * chronic issue * saw Heme/Onc in the past and this is felt to be related to cirrhosis and alcohol use * platelet transfusion PRN (10) DM2 (diabetes mellitus, type 2): Code(s): E11.9 - Type 2 diabetes mellitus without complications Status: Chronic Assessment and Plan: * follow accu-cheks * glycemic control per chairman & ceo/hospitalist Will continue to follow. L Subjective Date/time seen: 10/10/25 13:01 Interval history: Follow-up for acute kidney injury/acute renal failure on chronic kidney disease. Mild improvement in mental status since off sedation - opens eyes and following some simple commands; remains intubated and on mechanical ventilation; stable hemodynamics noted; continues to make reasonable urine output with diuretic therapy but renal function/creatinine has been worsening. Exam 2 Narrative: General: WD/WN male intubated on mechanical ventilation Heart: normal S1 and S2; no rub Lungs: coarse breath sounds Abdomen: soft, nontender, nondistended, positive bowel sounds Extremities: no cyanosis or clubbing; 1+ edema Skin: chronic venous stasis/skin changes apparent Objective Data Vital Signs Vital Signs: Vital Signs Temp Pulse Resp BP Pulse Ox O2 Del Method FiO2 10/10/25 13:00 97.0 F L 82 21 H 119/59 L 94 10/10/25 12:00 82 10/10/25 12:00 97.2 F L 82 22 H 129/69 95 10/10/25 11:09 78 89 L Mechanical Ventilation 40 10/10/25 11:00 97.0 F L 75 22 H 132/64 90 10/10/25 10:00 75 10/10/25 10:00 97.0 F L 76 21 H 136/66 92 10/10/25 09:00 97.2 F L 77 22 H 134/63 93 10/10/25 08:07 81 22 H 10/10/25 08:04 75 93 Mechanical Ventilation 30 10/10/25 08:00 35 10/10/25 08:00 75 10/10/25 08:00 97.2 F L 76 22 H 126/73 93 10/10/25 07:50 75 22 H 10/10/25 07:00 97.3 F L 73 22 H 116/54 L 90 10/10/25 06:00 80 10/10/25 06:00 97.4 F L 80 22 H 116/60 93 10/10/25 05:22 81 97 Mechanical Ventilation 30 10/10/25 05:00 97.7 F 81 22 H 116/62 96 10/10/25 04:00 81 22 H 96 Mechanical Ventilation 30 10/10/25 04:00 81 10/10/25 04:00 30 10/10/25 04:00 97.7 F 82 22 H 119/60 96 10/10/25 03:00 98.0 F 82 22 H 113/58 L 93 10/10/25 02:41 82 22 H 10/10/25 02:27 89 22 H 10/10/25 02:27 89 95 Mechanical Ventilation 30 10/10/25 02:00 98.5 F 84 22 H 108/51 L 97 10/10/25 02:00 84 10/10/25 01:00 99.1 F 86 22 H 125/61 95 10/10/25 00:00 87 22 H 95 Mechanical Ventilation 30 10/10/25 00:00 99.4 F 87 22 H 118/57 L 95 10/10/25 00:00 30 10/10/25 00:00 87 10/09/25 23:12 88 97 Mechanical Ventilation 30 10/09/25 23:00 99.7 F H 88 22 H 119/55 L 95 10/09/25 22:00 100 F H 88 22 H 118/54 L 98 10/09/25 22:00 88 10/09/25 21:00 100.1 F H 89 22 H 125/68 95 10/09/25 20:38 89 22 H 10/09/25 20:29 87 22 H 10/09/25 20:29 89 93 Mechanical Ventilation 30 10/09/25 20:00 89 22 H 95 Mechanical Ventilation 30 10/09/25 20:00 89 10/09/25 20:00 30 10/09/25 20:00 100.0 F H 90 22 H 127/58 L 95 Intake/Output Intake/Output: Intake & Output 10/07/25 10/08/25 10/09/25 10/10/25 23:59 23:59 23:59 23:59 Intake Total 1720.7 1943.7 2114 500 Output Total 580 1400 1125 500 Balance 1140.7 543.7 989 0 Meds/Results Medications: Active Medications Generic Name Dose Route Start Last Admin Trade Name Freq PRN Reason Stop Dose Admin Acetylcysteine 200 mg 10/09/25 14:00 10/10/25 13:34 Acetylcysteine 20% Inhal Soln 800 Mg/4 Ml Vial INHALATION 10/12/25 13:59 200 mg Q6HRT VIKA Administration Aspirin 81 mg 10/04/25 17:50 10/10/25 10:00 Aspirin 81 Mg Chewable Tablet PO 81 mg DAILY@0800 VIKA Administration Dextrose 12.5 gm 10/04/25 13:16 Dextrose 50% 25 Gm/50 Ml Syringe IV PUSH PRN PRN Hypoglycemia Protocol Dornase [place] 2.5 mg 10/09/25 10:40 10/10/25 07:57 Dornase [place] Inh Soln 1 Mg/Ml 2.5 Ml Amp INHALATION 2.5 mg Q12HRT VIKA Administration Glucagon 1 mg 10/04/25 13:16 Glucagon For Inj 1 Mg Vial IM PRN PRN Hypoglycemia Protocol Glucose 15 gm 10/04/25 13:16 Glucose Oral Gel 15 Gm Of Glucse In 37.5 Gm Tube PO PRN PRN Hypoglycemia Protocol Metronidazole 500 mg in 100 mls @ 100 mls/hr 10/04/25 17:00 10/10/25 18:13 Flagyl 500 Mg/Iso Soln 100 Ml IVPB 10/11/25 01:59 100 mls/hr Q8H VIKA Administration Albumin Human 100 mls @ 60 mls/hr 10/04/25 12:00 10/10/25 18:12 Albutein IVPB 60 mls/hr Q6HR VIKA Administration Dextrose 1,000 mls @ 100 mls/hr 10/04/25 13:16 Dextrose 5% 1,000 Ml IVPB PRN PRN Hypoglycemia Protocol Cefepime HCl 1 gm/ Sodium 50 mls @ 100 mls/hr 10/08/25 09:00 10/10/25 09:52 Chloride IVPB 10/10/25 21:29 100 mls/hr Q12H VIKA Administration Insulin Aspart 3 - 6 units 10/04/25 18:00 10/10/25 18:14 Insulin Aspart (*Bkc) 100 Units/Ml SUB-Q 3 units Q6HR VIKA Administration Protocol Ipratropium [place] 0.5 mg 10/07/25 07:43 10/09/25 08:14 Ipratropium Br 0.02% Inh Soln 0.5 Mg/2.5 Ml Vial INHALATION 0.5 mg Q6HRT PRN Administration Wheezing Lactulose 20 gm 10/11/25 09:00 Lactulose 20 Gm/30 Ml Udc FEED TUBE DAILY VIKA Levalbuterol HCl 0.63 mg 10/07/25 07:44 10/10/25 13:34 Levalbuterol Neb 1.25 Mg/3 Ml INHALATION 0.63 mg Q6HRT PRN Administration Wheezing Metoclopramide HCl 10 mg 10/08/25 08:05 10/10/25 18:14 Metoclopramide Hcl 10 Mg Tablet FEED TUBE 10 mg Q6HR VIKA Administration Multi-Ingred Cream/Lotion/Oil/Oint 1 applic 10/07/25 09:00 10/10/25 10:15 Mineral Oil/White Petrolatum Ointment EACH EYE 1 applic Q12HR VIKA Administration Pantoprazole Sodium 40 mg 10/04/25 21:00 10/10/25 09:58 Pantoprazole Sodium Iv 40 Mg Vial IV PUSH 40 mg Q12HR VIKA Administration Sodium Chloride 10 ml 10/04/25 14:00 10/10/25 15:21 Central Line Flush IV PUSH 10 ml Q8HR VIKA Administration Sodium Chloride 20 ml 10/04/25 09:27 10/09/25 06:04 Central Line Flush IV PUSH 20 ml PRN PRN Administration after blood draws Thiamine HCl 100 mg 10/05/25 09:00 10/10/25 10:01 Thiamine Hcl 200 Mg/2 Ml Vial IV PUSH 100 mg QAM VIKA Administration Radiology Results: ITS Impressions Head CT 10/04/25 07:09 IMPRESSION: 1. No acute intracranial findings. Chest/Abdomen/Pelvis CT 10/04/25 07:26 IMPRESSION: CHEST- 1. Interstitial pulmonary edema and small right pleural effusion. 2. Superimposed pneumonitis or interstitial lung disease not excluded. ABDOMEN/PELVIS- 1. Colonic hepatic flexure wall thickening. Colitis and/or malignancy. 2. Additional findings as above. Renal Ultrasound 10/05/25 13:44 Impression: 1: Unremarkable renal ultrasound. No stones, masses or hydronephrosis. 2: Splenomegaly. 3: Ascites. Chest X-Ray 10/10/25 08:24 Impression: CHF. Findings appear relatively unchanged. Labs Labs: Laboratory Tests 10/10/25 05:39 10/10/25 05:39 Calcium 9.1 Phosphorus 4.6 H Magnesium 2.6 H Total Bilirubin 4.7 H AST 59 ALT 19 Alkaline Phosphatase 87 Ammonia 11 Total Protein 7.7 Albumin 3.8 Microbiology 10/04/25 15:59 Sputum Sputum White Blood Cells - Final 10/04/25 15:59 Sputum Sputum Epithelial Cells - Final 10/04/25 15:59 Sputum Gram Stain Sputum Result 1 - Final 10/04/25 15:59 Sputum Gram Stain Sputum Result 2 - Final 10/04/25 15:59 Sputum Gram Stain Sputum Result 3 - Final 10/04/25 15:59 Sputum Gram Stain Sputum Result 4 - Final 10/04/25 15:59 Sputum Gram Stain Evaluation - Final 10/04/25 15:59 Sputum Sputum Culture - Final Pseudomonas aeruginosa Staphylococcus aureus
[2025-10-10] MEDS: IPRATROPIUM BR 0.02% INH SOLN 0.5 MG/2.5 ML VIAL INHALATION (20:55)
[2025-10-11] VITALS (57 sets, daily range): BP systolic 84–127; BP diastolic 47–79; PULSE 79–124; RESP 19–30; TEMP 36.2–37.7; O2SAT 91–97
[2025-10-11] MEDS: ALBUMIN HUMAN 25% 25 GM/100 ML 100 ML IVPB ×4 (00:25→12:42)
[2025-10-11] MEDS: metroNIDAZOLE 500 MG/ISO 100ML 500 MG/100 ML BAG 100 MG IVPB (00:25)
[2025-10-11] MEDS: INSULIN ASPART (*BKC) 100 UNITS/ML SUB-Q ×2 (00:26→06:11)
[2025-10-11] MEDS: METOCLOPRAMIDE HCL 10 MG TABLET FEED TUBE ×5 (00:28→23:44)
[2025-10-11 00:35] LABS: Arterial Blood Gas Ventilator rate 22 /MIN; Site Drawn RIGHT RADIAL
[2025-10-11 00:36] LABS: Arterial Blood Gas Tidal Volume 500 ml
[2025-10-11] MEDS: ACETYLCYSTEINE 20% INHAL SOLN 800 MG/4 ML VIAL 200 MG INHALATION ×4 (01:39→20:29)
[2025-10-11 05:06] LABS: Hematocrit 23.9 % (42.0-52.0); Hemoglobin 7.4 g/dL (14.0-18.0); Immature Granulocyte Percent A 2.2 % (0-0.5); Immature Platelet Fraction Pct 2.6 % (0.9-11.2); Lymphocytes Absolute Auto 0.56 K/mm3 (0.9-3.2); Mean Corpuscular HGB Conc 31.0 g/dl (32-36); Mean Corpuscular Hemoglobin 34.6 pg (26-34); Mean Corpuscular Volume 111.7 fl (80-100); Nucleated Red Blood Cells Absolute Auto 0.000 K/mm3 (0.0-0.012); Nucleated Red Blood Cells Perc 0.0 % (0.0-0.2); Platelet Count Result 42 k/mm3 (150-375); Red Blood Count 2.14 M/mm3 (4.6-6.20); White Blood Count 6.8 K/mm3 (4.5-10.0)
[2025-10-11 05:07] LABS: Alveolar/Arterial O2 Gradient 91.9 mmHg; Fractional Inspired Oxygen 30 %; HCO3 ABG 20.5 mEq/l (22.0-26.0); Oxygen Content ABG 10.9 %vol (16.0-22.0); Oxygen Saturation ABG 96.0 % (95.0-100.0); PCO2 ABG 34.7 mmHg (35.0-45.0); PO2 ABG 81.2 mmHg (80.0-100.0); PO2 FiO2 Ratio Arterial Blood 2.71 %
[2025-10-11 05:17] LABS: INR 1.8; Prothrombin Time 20.6 Seconds (11.1-14.7)
[2025-10-11 05:18] LABS: Alanine Aminotransferase 20 U/L (6-50); Albumin Level 4.4 g/dL (3.5-5.1); Alkaline Phosphatase 92 U/L (38-126); Anion Gap 11 mmol/L (4-12); Aspartate Amino Transferase 56 U/L (17-59); Bilirubin,Total 4.8 mg/dL (0.2-1.3); Blood Urea Nitrogen 91 mg/dL (9-20); Calcium 9.6 mg/dL (8.4-10.2); Carbon Dioxide 22 mmol/L (22-30); Chloride 113 mmol/L (98-107); Estimated CRCL calculation 26 ml/min; Estimated Glomerular Filt Rate 13; Glucose 227 mg/dL (65-110); Magnesium 2.6 mg/dL (1.6-2.3); Partial Thromboplastin Time 42.3 Seconds (22.3-36.8); Sodium 146 mmol/L (137-145); Total Protein 8.4 g/dL (6.3-8.2)
[2025-10-11 05:22] LABS: Ammonia < 9 umol/L (9-30)
[2025-10-11 05:27] LABS: Potassium 3.9 mmol/L (3.4-5.0)
[2025-10-11 05:33] LABS: Hypochromasia 1+; Schistocytes None Seen; Stomatocytes Occasional; Tear Drop Cells 1+
[2025-10-11] MEDS: CENTRAL LINE FLUSH 10 ML IV PUSH ×3 (06:10→21:48)
[2025-10-11 07:08] LABS: Arterial Blood Gas Tidal Volume 500 ml; Arterial Blood Gas Ventilator rate 20 /MIN; Modified Allen's Test Pass; Site Drawn LEFT RADIAL
[2025-10-11] MEDS: DORNASE ALFA INH SOLN 1 MG/ML 2.5 ML AMP 2.5 MG INHALATION ×2 (07:55→20:29)
[2025-10-11] MEDS: IPRATROPIUM BR 0.02% INH SOLN 0.5 MG/2.5 ML VIAL INHALATION ×3 (07:57→20:28)
[2025-10-11] MEDS: FUROSEMIDE INJ 40 MG/4 ML VIAL IV PUSH (09:09)
[2025-10-11] MEDS: ASPIRIN 81 MG CHEWABLE TABLET PO (09:09)
[2025-10-11] MEDS: MINERAL OIL/WHITE PETROLATUM OINTMENT 1 APPLIC EACH EYE ×2 (09:09→21:48)
[2025-10-11] MEDS: cefTRIAXone 2 GM in SODIUM CHLORIDE 0.9% IV 100 ML 200 ML IVPB (09:09)
[2025-10-11] MEDS: PANTOPRAZOLE SODIUM IV 40 MG VIAL IV PUSH ×2 (09:10→21:48)
[2025-10-11] MEDS: THIAMINE HCL 200 MG/2 ML VIAL 100 MG IV PUSH (09:10)
--- NOTE | 2025-10-11 11:34 | PCFNICU ---
ICU Rounding Note: Pt current nutrition is Nepro at 45 ml/hr. Last recorded weight is 171 kg, up from 165.4 kg on admit. Bowel Motility: Last reported BM 10/10 Labs Reviewed: PO4 5.1, BUN 91, Cr 4.4, Glu 227, Na 146 Meds Noted: Flagyl, Cefepime, Reglan, Thiamine Skin: WNL Additional Notes: Patient current with mechanical vent. Tube feedings on hold for breathing trial and possible extubation. Agree with tube feedings orders of Nepro at 45 ml/hr with Flush 30 ml q 4hours. Following daily in ICU rounds. Will monitor weight, labs, skin, diet orders, meds every Wednesday and Wednesday. .
--- NOTE | 2025-10-11 12:23 | P.PNINT_ITS ---
Assessment and Plan Assessment and Plan (1) Acute respiratory failure: Code(s): J96.00 - Acute respiratory failure, unspecified whether with hypoxia or hypercapnia Status: Acute Assessment and Plan: 10/04: Patient presented the ED via EMS with complains of generalized weakness, fevers, shortness of breath and fever. When EMS arrived to his house he was found on the ground, unable to get up off the floor. Patient's O2 sats were in the 80s on room air. Patient was placed on supplemental oxygen. In the ED patient was awake, alert, oriented was able to answer questions. O2 sats were improved but he was hypotensive, once he was given IV fluids per sepsis protocol he was more short of breath and was intubated -10/04: Intubated in the ER for impending respiratory failure likely related to CHF -currently CMV mode of ventilation,PEEP to 10 30% FiO2 -chest x-ray shows pulmonary congestion and ABGs reviewed -wean FiO2 to maintain O2 sats > 92% -continue bronchodilators -sedated with fentany infusion, maintain RASS of 0 to -2 -sedation holiday -10/07 off of vasopressors. Started on Lasix. Patient will need diuresis secondary to volume overload before weaning trial 10/08 Continue Lasix and diuresis. Off sedation 10/09: Continue diuresis with Lasix, ammonia levels are normal, patient on lactulose 10/10: Will diurese with Bumex and albumin as patient still positive 9 L since admission, and also place patient on pressure support ventilation 10/12 and will continue to wean pressure support, goal is to extubate the patient in the next day or so 10/11: Will diurese again today, patient did tolerate PSV 10/12 for approximately [address] on pressure support ventilation and / today and evaluate. Patient 15 to AFib, breathing 30 times a minute, looked uncomfortable after being placed on pressure support ventilation. Patient was switched to to CMV mode, will re-evaluate related while admit place him back on pressure support ventilation (2) Septic shock: Code(s): A41.9 - Sepsis, unspecified organism; R65.21 - Severe sepsis with septic shock Status: Acute Assessment and Plan: Patient with hypotension, likely related to pneumonia, possible lower abdomen cellulitis as seen on the CT scan. Could be related to heart failure -10/04: patient received 3.5 L IV fluid bolus in the ER, despite which his blood pressures remain low, is right-sided IJ central line was inserted, patient started on Levophed Off vasopressors now Overall volume overloaded hence off IV fluids -complete a course of cefepime, metronidazole, -completed a course azithromycin (10/04). vancomycin DISCONTINUED (10/07) -10/04: Blood cultures resulted on 10/11/2025, growing Streptococcus dysgalactiae 2/2 bottles -10/04: Urine cultures negative -10/04: sputum culture growing Pseudomonas and Staphylococcus aureus which was resulted on 10/09/2025 -10/04: Obtain urine Legionella and strep pneumo antigen, negative 10/11: Started patient on ceftriaxone for blood cultures being positive for Streptococcus dysgalactiae, will repeat blood cultures 01/16/2025: Echocardiogram Summary 1. Left ventricular chamber dimension is normal. 2. Left ventricular systolic function is normal, estimated at 65-70%. 3. There is mildly increased left ventricular wall thickness. 4. The left ventricular diastolic function is grade I diastolic dysfunction. 5. Right ventricular systolic function is normal. 6. Left atrial chamber dimension is moderately enlarged. 7. Right atrial chamber dimension is moderately enlarged. 8. There is moderate aortic valve calcification. 9. There is moderate to severe aortic valve stenosis with a peak velocity of407 cm/s, mean gradient of 43 mmHg, and aortic valve area of 1.2 cm2. 10. There is mild aortic valve regurgitation. 11. There is mild to moderate tricuspid valve regurgitation. 12. Pulmonary hypertension, estimated pulmonary arterial systolic pressure is 48 mmHg. (3) MARIO (acute kidney injury): Code(s): N17.9 - Acute kidney failure, unspecified Status: Acute Assessment and Plan: Acute kidney injury, creatinine 1.83 on admission, (1.87-2.19 in January of 2025, prior to that patient's creatinine was 1.10-1.20 in March of 2023) -patient received 3.5 L of IV fluid bolus in the ER and albumin. Off further IV fluids -10/08 patient was given Lasix over last 24 hours with improved urine output although creatinine continues to increase slightly to 4.39. Continue Lasix. Will discuss with Nephrology. May issue and may still need dialysis although no emergent indication for dialysis at this time. - Nephrology following. -continue to monitor renal function, electrolytes and urine output -10/05/2025: Renal ultrasound did not show any stones, masses or hydronephrosis. Showed splenomegaly, ascites -10/09: Nephrology following the patient, good urine output in response to diuresis, creatinine trending up, discussed with Nephrology, will continue to monitor for now, electrolytes are stable -10/10: Patient with adequate urine output in response to diuresis, creatinine trending up, and electrolytes still stable. Will give albumin and Bumex today since patient has history of cirrhosis 10/11: Continues to respond to diuresis, creatinine may have peaked, this morning trending down gradually. Continue to monitor (4) Acute CHF: Code(s): I50.9 - Heart failure, unspecified Status: Acute Assessment and Plan: Patient has history of CHF, he does take furosemide at home, echocardiogram as above -chest x-ray shows pulmonary vascular congestion after receiving IV fluid -echo as above, diastolic heart failure (5) DM2 (diabetes mellitus, type 2): Code(s): E11.9 - Type 2 diabetes mellitus without complications Status: Chronic Assessment and Plan: Accu-Cheks and sliding scale insulin (6) Thrombocytopenia: Code(s): D69.6 - Thrombocytopenia, unspecified Status: Acute Assessment and Plan: Chronic thrombocytopenia could be related to cirrhosis, alcohol use -patient was evaluated by Oncology on 01/28/2023 -platelets low but stable. Continue to monitor, -will transfuse if needed (7) Cirrhosis: Code(s): K74.60 - Unspecified cirrhosis of liver Status: Acute Assessment and Plan: CT scan of the abdomen and pelvis showed spleen enlargement and cirrhosis -patient also has anasarca -elevated bilirubin -appreciate GI evaluation recommendation -continue lactulose for elevated ammonia, -10/09: Ammonia level at 30, continue lactulose which will also help with constipation -ammonia levels have normalized, continue lactulose daily (8) Anasarca: Code(s): R60.1 - Generalized edema Status: Acute Assessment and Plan: Likely related to cirrhosis and congestive heart failure Continue diuresis (9) GI bleed: Code(s): K92.2 - Gastrointestinal hemorrhage, unspecified Status: Acute Assessment and Plan: OG tube has blood draining, could be related to trauma secondary to OG tube placement or variceal bleed or gastritis as patient has cirrhosis -Protonix IV q.12 hours -appreciate GI evaluation, no more GI bleeding noted from the OG tube -patient does have cirrhosis, MELD score of 26 (10) Anemia: Code(s): D64.9 - Anemia, unspecified Status: Acute Assessment and Plan: Patient also has anemia with hemoglobin of 10.7 (which is close to his baseline) -will continue to monitor, hemoglobin has been stable, continue to monitor - transfuse for hemoglobin < 7.0 (11) Aortic stenosis: Code(s): I35.0 - Nonrheumatic aortic (valve) stenosis Status: Acute Assessment and Plan: Moderate to severe aortic valve stenosis with mean gradient of 43 mmHg and aortic valve area of 1.2 cm2 -off IV fluids -repeat echocardiogram as above (12) NSTEMI (non-ST elevated myocardial infarction): Code(s): I21.4 - Non-ST elevation (NSTEMI) myocardial infarction Status: Acute Assessment and Plan: 10/04: Troponins were 4.720, 8.720 and 13.00. -cardiology was consulted, recommended starting heparin infusion -10/05: Heparin infusion was discontinued as this was thought to be secondary to type 2 myocardial infarction secondary to anemia, hypotension, respiratory failure and septic shock. -appreciate cardiology evaluation recommendation, no intervention at this time Plan DVT prophylaxis: SCDs, no chemoprophylaxis due to thrombocytopenia, anemia, patient also had bloody drainage from his OG tube on admission which has cleared up Stress ulcer prophylaxis: Protonix IV q.12 hours Nutrition: Continue tube feeds Code Status: Full code Critical Care Time Spent: 33 minutes Discussed with patient's at length, updated with patient's condition and plan of care. I did discuss with the the Vi trying to place patient on spontaneous breathing trial to evaluate for extubation. But given his underlying aortic stenosis, cirrhosis, renal failure, thrombocytopenia possible COPD, obstructive sleep apnea and obesity hypoventilation syndrome the patient is extubated he may have a chance of re-intubation, she is going to think and let me know if she wants him to be Reintubated, if such a situation arises Due to a high probability of clinically significant, life threatening det erioration, the patient required my highest level of preparedness to intervene emergently and I personally spent this critical care time directly and personally managing the patient. This critical care time included obtaining a history; examining the patient; pulse oximetry; ordering and review of studies; arranging urgent treatment with development of a management plan; evaluation of patient's response to treatment; frequent reassessment; and discussions with other providers. It was exclusive of separately billable procedures and treating other patients and teaching time. Please see Assessment and Plan section and the rest of the note for further information on patient assessment and treatment This dictation may have been done utilizing a voice recognition system. Attempts have been made to correct errors. However, there may be uncorrected grammatical, spelling, and recognitions errors present. Subjective Date/time seen: 10/11/25 12:23 Interval history: Reason for consult: Septic shock, pneumonia, pulmonary vascular congestion, colitis, acute kidney injury 10/11/2025: Patient seen and examined the ICU, remains intubated, on CMV mode of ventilation, peep of 5 and 30% FiO2. Patient did tolerate pressure support 10/12 for almost 12 hours yesterday. Urine output has been adequate, patient has been afebrile, hemodynamically stable. Tolerating tube feeds, good bowel movements Patient does open his eyes, nods to questions and follows simple commands in all extremities Review of Systems Review of Systems: ROS unobtainable: Yes unobtainable due to endotracheal tube, unobtainable due to medical condition and unobtainable due to mental status Exam Narrative: General: Intubated, in no acute distress HEENT:? Pupils equal and reactive, sclera is icteric, ETT in place Neck:? Thick neck, right IJ central line in place Respiratory:? Coarse breath sounds bilaterally, decreased at bases, no wheezing Cardiac:? S1-S2 is normal, regular rate and rhythm, 2/6 ejection systolic murmur in the aortic area Abdomen:? Soft, nontender, nondistended, obese, normoactive bowel sounds, thickening of the skin on the lower part of the abdomen Extremities:? Bilateral upper and lower extremity edematous, palpable pedal pulses Neuro:? Patient is intubated, not on any sedation, opens his eyes, follows simple commands in all extremities Skin:? Chronic venous stasis changes and chronic skin discoloration which is likely due to diabetes according the . Patient also has a callus on the ball of the right toe Psych:? Unable to assess at this time Objective Data Vital Signs Vital Signs: Vital Signs - 24 hr 10/10/25 13:00 10/10/25 13:30 10/10/25 13:38 Temperature 97.0 F L Pulse Rate 82 79 79 Respiratory Rate 21 H 18 Blood Pressure 119/59 L Pulse Oximetry 94 93 Oxygen Delivery Mechanical Ventilation Fraction of Inspired Oxygen 35 10/10/25 13:42 10/10/25 14:00 10/10/25 14:00 Temperature 97.0 F L Pulse Rate 79 81 79 Respiratory Rate 19 21 H Blood Pressure 93/48 L Pulse Oximetry 92 Oxygen Delivery Fraction of Inspired Oxygen 10/10/25 15:00 10/10/25 16:00 10/10/25 16:00 Temperature 97.0 F L 97.0 F L Pulse Rate 80 78 79 Respiratory Rate 22 H 25 H Blood Pressure 95/77 L 95/49 L Pulse Oximetry 93 93 Oxygen Delivery Fraction of Inspired Oxygen 10/10/25 16:00 10/10/25 17:00 10/10/25 18:00 Temperature 97.0 F L Pulse Rate 80 80 83 Respiratory Rate 23 H Blood Pressure 108/52 L Pulse Oximetry 94 93 Oxygen Delivery Mechanical Ventilation Fraction of Inspired Oxygen 35 10/10/25 18:00 10/10/25 19:00 10/10/25 20:00 Temperature 97.2 F L 97.2 F L 97.2 F L Pulse Rate 83 81 80 Respiratory Rate 19 26 H 23 H Blood Pressure 126/94 H 110/67 107/61 Pulse Oximetry 94 91 90 Oxygen Delivery Fraction of Inspired Oxygen 10/10/25 20:00 10/10/25 20:00 10/10/25 20:00 Temperature Pulse Rate 79 74 Respiratory Rate 24 H Blood Pressure Pulse Oximetry 90 Oxygen Delivery Mechanical Ventilation Fraction of Inspired Oxygen 35 35 10/10/25 21:00 10/10/25 21:00 10/10/25 21:01 Temperature 97.3 F L Pulse Rate 80 80 80 Respiratory Rate 25 H 30 H Blood Pressure 114/64 Pulse Oximetry 96 96 Oxygen Delivery Mechanical Ventilation Fraction of Inspired Oxygen 35 10/10/25 21:26 10/10/25 22:00 10/10/25 22:00 Temperature 97.3 F L Pulse Rate 88 84 84 Respiratory Rate 30 H 22 H Blood Pressure 113/68 Pulse Oximetry 97 Oxygen Delivery Fraction of Inspired Oxygen 10/10/25 23:00 10/10/25 23:26 10/11/25 00:00 Temperature 97.4 F L 97.2 F L Pulse Rate 83 83 83 Respiratory Rate 25 H 22 H Blood Pressure 107/56 L 104/58 L Pulse Oximetry 96 95 96 Oxygen Delivery Mechanical Ventilation Fraction of Inspired Oxygen 35 10/11/25 00:00 10/11/25 00:00 10/11/25 00:00 Temperature Pulse Rate 83 79 Respiratory Rate 22 H Blood Pressure Pulse Oximetry 97 Oxygen Delivery Mechanical Ventilation Fraction of Inspired Oxygen 30 30 10/11/25 01:00 10/11/25 01:42 10/11/25 01:43 Temperature 97.4 F L Pulse Rate 79 80 80 Respiratory Rate 22 H 26 H Blood Pressure 99/60 L Pulse Oximetry 96 95 Oxygen Delivery Mechanical Ventilation Fraction of Inspired Oxygen 35 10/11/25 01:56 10/11/25 02:00 10/11/25 02:00 Temperature 97.5 F L Pulse Rate 83 102 H 102 H Respiratory Rate 24 H 22 H Blood Pressure 114/62 Pulse Oximetry 96 Oxygen Delivery Fraction of Inspired Oxygen 10/11/25 03:00 10/11/25 04:00 10/11/25 04:00 Temperature 97.3 F L Pulse Rate 101 H 84 Respiratory Rate 22 H 22 H Blood Pressure 99/65 L Pulse Oximetry 95 97 Oxygen Delivery Mechanical Ventilation Fraction of Inspired Oxygen 30 30 10/11/25 04:00 10/11/25 04:00 10/11/25 04:54 Temperature 97.7 F Pulse Rate 102 H 101 H 84 Respiratory Rate 22 H Blood Pressure 107/58 L Pulse Oximetry 94 94 Oxygen Delivery Mechanical Ventilation Fraction of Inspired Oxygen 30 10/11/25 05:00 10/11/25 06:00 10/11/25 06:00 Temperature 97.7 F 98.0 F Pulse Rate 85 93 93 Respiratory Rate 22 H 22 H Blood Pressure 97/54 L 127/62 Pulse Oximetry 95 95 Oxygen Delivery Fraction of Inspired Oxygen 10/11/25 07:00 10/11/25 07:59 10/11/25 08:00 Temperature 97.7 F 98.1 F Pulse Rate 83 82 84 Respiratory Rate 22 H 24 H 23 H Blood Pressure 89/64 L 109/62 Pulse Oximetry 94 94 Oxygen Delivery Fraction of Inspired Oxygen 10/11/25 08:00 10/11/25 08:00 10/11/25 08:00 Temperature Pulse Rate 83 82 Respiratory Rate 22 H Blood Pressure Pulse Oximetry 92 Oxygen Delivery Mechanical Ventilation Fraction of Inspired Oxygen 30 30 10/11/25 08:05 10/11/25 08:07 10/11/25 09:00 Temperature 98.1 F Pulse Rate 82 82 84 Respiratory Rate 28 H 22 H Blood Pressure 121/59 L Pulse Oximetry 95 92 Oxygen Delivery Mechanical Ventilation Fraction of Inspired Oxygen 30 10/11/25 10:00 10/11/25 10:00 10/11/25 11:00 Temperature 98.3 F 98.5 F Pulse Rate 82 81 89 Respiratory Rate 23 H 22 H Blood Pressure 121/79 101/77 Pulse Oximetry 93 95 Oxygen Delivery Fraction of Inspired Oxygen 10/11/25 11:00 10/11/25 12:00 Temperature 98.5 F 98.8 F Pulse Rate 89 118 H Respiratory Rate 26 H 30 H Blood Pressure 101/77 93/47 L Pulse Oximetry 94 94 Oxygen Delivery Fraction of Inspired Oxygen Intake/Output Intake/Output: Intake & Output 10/08/25 10/09/25 10/10/25 10/11/25 23:59 23:59 23:59 23:59 Intake Total 1943.7 2114 800 967 Output Total 1400 1125 500 450 Balance 543.7 989 300 517 Meds/Results Medications: Active Medications Generic Name Dose Route Start Last Admin Trade Name Freq PRN Reason Stop Dose Admin Acetylcysteine 200 mg 10/09/25 14:00 10/11/25 07:56 Acetylcysteine 20% Inhal Soln 800 Mg/4 Ml Vial INHALATION 10/12/25 13:59 200 mg Q6HRT VIKA Administration Aspirin 81 mg 10/04/25 17:50 10/11/25 09:09 Aspirin 81 Mg Chewable Tablet PO 81 mg DAILY@0800 VIKA Administration Dextrose 12.5 gm 10/04/25 13:16 Dextrose 50% 25 Gm/50 Ml Syringe IV PUSH PRN PRN Hypoglycemia Protocol Dornase [place] 2.5 mg 10/09/25 10:40 10/10/25 20:55 Dornase [place] Inh Soln 1 Mg/Ml 2.5 Ml Amp INHALATION 2.5 mg Q12HRT VIKA Administration Glucagon 1 mg 10/04/25 13:16 Glucagon For Inj 1 Mg Vial IM PRN PRN Hypoglycemia Protocol Glucose 15 gm 10/04/25 13:16 Glucose Oral Gel 15 Gm Of Glucse In 37.5 Gm Tube PO PRN PRN Hypoglycemia Protocol Albumin Human 100 mls @ 60 mls/hr 10/04/25 12:00 10/11/25 06:09 Albutein IVPB 60 mls/hr Q6HR IVKA Administration Dextrose 1,000 mls @ 100 mls/hr 10/04/25 13:16 Dextrose 5% 1,000 Ml IVPB PRN PRN Hypoglycemia Protocol Ceftriaxone Sodium 2 gm/ 100 mls @ 200 mls/hr 10/11/25 08:45 10/11/25 09:09 Sodium Chloride IVPB 200 mls/hr DAILY VIKA Administration Insulin Aspart 3 - 6 units 10/04/25 18:00 10/11/25 06:11 Insulin Aspart (*Bkc) 100 Units/Ml SUB-Q 3 units Q6HR VIKA Administration Protocol Ipratropium Happy 0.5 mg 10/07/25 07:43 10/11/25 07:57 Ipratropium Br 0.02% Inh Soln 0.5 Mg/2.5 Ml Vial INHALATION 0.5 mg Q6HRT PRN Administration Wheezing Lactulose 20 gm 10/11/25 09:00 10/11/25 09:09 Lactulose 20 Gm/30 Ml Udc FEED TUBE Not Given DAILY VIKA Levalbuterol HCl 0.63 mg 10/07/25 07:44 10/11/25 07:57 Levalbuterol Neb 1.25 Mg/3 Ml INHALATION 0.63 mg Q6HRT PRN Administration Wheezing Metoclopramide HCl 10 mg 10/08/25 08:05 10/11/25 06:09 Metoclopramide Hcl 10 Mg Tablet FEED TUBE 10 mg Q6HR VIKA Administration Miscellaneous Information 0 each 10/11/25 00:01 Please Renew Dornase. Per [employer] Procedure, It Will Discontinue If Not Renewed XX 11/10/25 00:00 CLARIFY VIKA Multi-Ingred Cream/Lotion/Oil/Oint 1 applic 10/07/25 09:00 10/11/25 09:09 Mineral Oil/White Petrolatum Ointment EACH EYE 1 applic Q12HR VIKA Administration Pantoprazole Sodium 40 mg 10/04/25 21:00 10/11/25 09:10 Pantoprazole Sodium Iv 40 Mg Vial IV PUSH 40 mg Q12HR VIKA Administration Sodium Chloride 10 ml 10/04/25 14:00 10/11/25 06:10 Central Line Flush IV PUSH 10 ml Q8HR VIKA Administration Sodium Chloride 20 ml 10/04/25 09:27 10/09/25 06:04 Central Line Flush IV PUSH 20 ml PRN PRN Administration after blood draws Thiamine HCl 100 mg 10/05/25 09:00 10/11/25 09:10 Thiamine Hcl 200 Mg/2 Ml Vial IV PUSH 100 mg QAM VIKA Administration Radiology Results: ITS Impressions Head CT 10/04/25 07:09 IMPRESSION: 1. No acute intracranial findings. Chest/Abdomen/Pelvis CT 10/04/25 07:26 IMPRESSION: CHEST- 1. Interstitial pulmonary edema and small right pleural effusion. 2. Superimposed pneumonitis or interstitial lung disease not excluded. ABDOMEN/PELVIS- 1. Colonic hepatic flexure wall thickening. Colitis and/or malignancy. 2. Additional findings as above. Renal Ultrasound 10/05/25 13:44 Impression: 1: Unremarkable renal ultrasound. No stones, masses or hydronephrosis. 2: Splenomegaly. 3: Ascites. Chest X-Ray 10/11/25 08:14 Impression: CHF with superimposed probable pneumonia. The findings are markedly progressed Labs Labs: Laboratory Results - last 24 hr 10/10/25 10/10/25 10/10/25 04:40 18:12 20:38 WBC RBC Hgb Hct MCV MCH MCHC RDW Plt Count MPV Immature Gran % (Auto) Neut % (Auto) Lymph % (Auto) [place] % (Auto) Eos % (Auto) Baso % (Auto) Lymph # (Auto) [place] # (Auto) Eos # (Auto) Baso # (Auto) Abs Immat Gran (auto) Absolute Neuts (auto) Absolute Nucleated RBC Band Neutrophils % Nucleated RBC % Platelet Estimate % Immature Plt Fraction Hypochromasia Tear Drop Cells Stomatocytes Schistocytes PT INR APTT Puncture Site Right radial ABG pH ABG pCO2 ABG pO2 ABG PO2/FiO2 Ratio ABG HCO3 ABG O2 Saturation ABG O2 Content ABG Base Excess A-a Gradient Oxyhemoglobin Total Hemoglobin O2 Delivery Device Ventilator O2 Liters/Min Not Reportable Minute Volume Not Reportable Vent Rate 22 Vent Mode Cmv FiO2 Tidal Volume 500 PEEP 10 Peak Inspir Pressure Not Reportable Pressure Support Not Reportable Sodium Potassium Chloride Carbon Dioxide Anion Gap BUN Creatinine Estim Creat Clear Calc Estimated GFR Glucose POC Capillary Glucose 220 H 216 H Calcium Phosphorus Magnesium Total Bilirubin AST ALT Alkaline Phosphatase Ammonia Total Protein Albumin 10/11/25 10/11/25 10/11/25 00:22 04:52 04:57 WBC 6.8 RBC 2.14 L Hgb 7.4 L Hct 23.9 L MCV 111.7 H MCH 34.6 H MCHC 31.0 L RDW 15.8 H Plt Count 42 L MPV 10.5 H Immature Gran % (Auto) 2.2 H Neut % (Auto) 76.2 H Lymph % (Auto) 8.3 L [place] % (Auto) 9.9 H Eos % (Auto) 3.0 Baso % (Auto) 0.4 Lymph # (Auto) 0.56 L [place] # (Auto) 0.7 H Eos # (Auto) 0.2 Baso # (Auto) 0.0 Abs Immat Gran (auto) 0.15 H Absolute Neuts (auto) 5.2 Absolute Nucleated RBC 0.000 Band Neutrophils % Not Reportable Nucleated RBC % 0.0 Platelet Estimate Decreased % Immature Plt Fraction 2.6 Hypochromasia 1+ Tear Drop Cells 1+ Stomatocytes Occasional Schistocytes None seen PT 20.6 H INR 1.8 APTT 42.3 H Puncture Site Left radial ABG pH 7.389 ABG pCO2 34.7 L ABG pO2 81.2 ABG PO2/FiO2 Ratio 2.71 ABG HCO3 20.5 L ABG O2 Saturation 96.0 ABG O2 Content 10.9 L ABG Base Excess -4.0 A-a Gradient 91.9 Oxyhemoglobin 94.7 Total Hemoglobin 8.1 L O2 Delivery Device Ventilator O2 Liters/Min Not Reportable Minute Volume Not Reportable Vent Rate 20 Vent Mode Cmv FiO2 30 Tidal Volume 500 PEEP 5 Peak Inspir Pressure Not Reportable Pressure Support Not Reportable Sodium 146 H Potassium 3.9 Chloride 113 H Carbon Dioxide 22 Anion Gap 11 BUN 91 H D Creatinine 4.44 H Estim Creat Clear Calc 26 Estimated GFR 13 L Glucose 227 H POC Capillary Glucose 236 H Calcium 9.6 Phosphorus 5.1 H Magnesium 2.6 H Total Bilirubin 4.8 H AST 56 ALT 20 Alkaline Phosphatase 92 Ammonia < 9 L Total Protein 8.4 H Albumin 4.4 12/04/25 11:19 WBC RBC Hgb Hct MCV MCH MCHC RDW Plt Count MPV Immature Gran % (Auto) Neut % (Auto) Lymph % (Auto) [place] % (Auto) Eos % (Auto) Baso % (Auto) Lymph # (Auto) [place] # (Auto) Eos # (Auto) Baso # (Auto) Abs Immat Gran (auto) Absolute Neuts (auto) Absolute Nucleated RBC Band Neutrophils % Nucleated RBC % Platelet Estimate % Immature Plt Fraction Hypochromasia Tear Drop Cells Stomatocytes Schistocytes PT INR APTT Puncture Site ABG pH ABG pCO2 ABG pO2 ABG PO2/FiO2 Ratio ABG HCO3 ABG O2 Saturation ABG O2 Content ABG Base Excess A-a Gradient Oxyhemoglobin Total Hemoglobin O2 Delivery Device O2 Liters/Min Minute Volume Vent Rate Vent Mode FiO2 Tidal Volume PEEP Peak Inspir Pressure Pressure Support Sodium Potassium Chloride Carbon Dioxide Anion Gap BUN Creatinine Estim Creat Clear Calc Estimated GFR Glucose POC Capillary Glucose 197 H Calcium Phosphorus Magnesium Total Bilirubin AST ALT Alkaline Phosphatase Ammonia Total Protein Albumin Quality VTE Prophylaxis VTE prophylaxis: mechanical ordered
--- NOTE | 2025-10-11 12:53 | P.PNNP_ITS ---
Progress Note: A&P Assessment and Plan (1) Acute kidney injury: Code(s): N17.9 - Acute kidney failure, unspecified Status: Acute Assessment and Plan: * as noted by labs on 10/05 (creatinine up to 2.87mg/dL) * admission creatinine at baseline * complicated by diminished urine output and volume overload * however, somewhat responsive to diuretics * suspect multifactorial etiology: * hemodynamic instability/shock * infection/sepsis * hypoxia * cocaine use * CHF * rhabdomyolysis * NSTEMI * pre renal factors * other(?) * evaluation to date noted: * renal ultrasound shows normal kidneys * CK was elevated but trending down (although was high enough to cause damage to the kidneys) * UA shows blood protein and red cells * urine electrolytes (FeNA & FeUrea) reflect a pre renal state * urine eosinophils negative * moderate proteinuria * IV diuretics PRN * 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 * however, no urgent need at this time * follow trend of repeat labs and UOP (2) Stage 3b chronic kidney disease: Code(s): N18.32 - Chronic kidney disease, stage 3b Status: Chronic Assessment and Plan: * creatinine 1.87mg/dL ~ 8 months ago on hospital discharge * was fluctuating 1.8 - 2.2mg/dL in the context of IV diuresis in January 2025 * prior to that, creatinine was ~ 1.1 - 1.2 in March of 2023 * presumably due to combination of diuretic use for CHF, diabetes, and hypertension +/- vascular disease (3) Septic shock: Code(s): A41.9 - Sepsis, unspecified organism; R65.21 - Severe sepsis with septic shock Status: Acute Assessment and Plan: * presented with hypotension unresponsive to IVF resuscitation * s/p 3.5L IVFs with no improvement in blood pressure * s/p RIJ central line placement and initiation of vasopressor therapy * suspected source include pneumonia, lower abdominal wall cellulitis, and/or heart failure * follow culture data (blood, sputum, and urine) * sputum culture with Pseudomonas and Staph aureus * lactic acid has normalized * cultures negative so far * weaned off vasopressor therapy * on antibiotics (4) Acute respiratory failure: Code(s): J96.00 - Acute respiratory failure, unspecified whether with hypoxia or hypercapnia Status: Acute Assessment and Plan: * intubated in ER for impending respiratory failure * noted hypoxia * worsening SOB with IVF resuscitation * decline in respiratory status felt to be secondary to CHF +/- pnuemonia * on bronchodilator therapy * ventilator weaning as tolerated (5) Acute CHF: Code(s): I50.9 - Heart failure, unspecified Status: Acute Assessment and Plan: * known history * admission CXR with pulmonary vascular congestion * last Echo (01/16/25) noted: * left ventricular systolic function is normal, estimated at 65 - 70% * left ventricular diastolic function is grade I diastolic dysfunction * moderate to severe aortic valve stenosis with a peak velocity of 407 cm/s, mean gradient of 43 mmHg, and aortic valve area of 1.2 cm2 * mild aortic valve regurgitation * mild to moderate tricuspid valve regurgitation * pulmonary hypertension, estimated pulmonary arterial systolic pressure is 48 mmHg * repeat Echo (10/05/25) reviewed: * left ventricular systolic function is normal, estimated at 55 - 60% * left ventricular diastolic function is abnormal * severe aortic valve stenosis with a peak velocity of 435 cm/s, mean gradient of 43 mmHg, and aortic valve area of 0.9 cm2 * mild to moderate aortic valve regurgitation * mild mitral valve regurgitation * mild to moderate tricuspid valve regurgitation * moderate pulmonary hypertension, estimated pulmonary arterial systolic pressure is 56 mmHg * trace pulmonic regurgitation * with better hemodynamics, started on IV diuretics * follow I/Os, daily weights, and respiratory status * Cardiology following (6) Anasarca: Code(s): R60.1 - Generalized edema Status: Acute Assessment and Plan: * likely a combination of CHF , MARIO, and liver cirrhosis/hypoalbuminemia * Echo as noted (see #5) * ongoing diuresis given better hemodynamics (7) Cirrhosis: Code(s): K74.60 - Unspecified cirrhosis of liver Status: Acute Assessment and Plan: * as noted by CT imaging: * noted spleen enlargement and cirrhosis * also with anasarca * trend bilirubin and LFTs * on lactulose (ammonia level has normalized) * GI following (8) Anemia: Code(s): D64.9 - Anemia, unspecified Status: Acute Assessment and Plan: * as noted * concern for GI loss given bleeding noted from OG tube * this appears to have resolved * suspect related to MARIO, CKD, and liver disease/cirrhosis * PRBC transfusion per protocol * consider PATRICIA given #1 and #2 (9) Thrombocytopenia: Code(s): D69.6 - Thrombocytopenia, unspecified Status: Acute Assessment and Plan: * chronic issue * saw Heme/Onc in the past and this is felt to be related to cirrhosis and alcohol use * platelet transfusion PRN (10) DM2 (diabetes mellitus, type 2): Code(s): E11.9 - Type 2 diabetes mellitus without complications Status: Chronic Assessment and Plan: * follow accu-cheks * glycemic control per record filing clerk/hospitalist Will continue to follow. L Subjective Date/time seen: 10/11/25 12:53 Interval history: Follow-up for acute kidney injury/acute renal failure on chronic kidney disease. Remains intubated and on mechanical ventilation but off sedation (and following simple commands as well); stable hemodynamics noted without the need for vasopressor therapy; continue to make good urine output in response to diuretic therapy but at the expense of renal function/BUN; no other issues/events overnight. Exam 2 Narrative: General: WD/WN male intubated on mechanical ventilation Heart: normal S1 and S2; no rub Lungs: coarse breath sounds Abdomen: soft, nontender, nondistended, positive bowel sounds Extremities: no cyanosis or clubbing; 1+ edema Skin: chronic venous stasis/skin changes Objective Data Vital Signs Vital Signs: Vital Signs Temp Pulse Resp BP Pulse Ox O2 Del Method FiO2 10/11/25 12:00 98.8 F 118 H 30 H 93/47 L 94 10/11/25 11:00 98.5 F 89 22 H 101/77 95 10/11/25 10:40 82 93 Mechanical Ventilation 30 10/11/25 10:00 81 10/11/25 10:00 98.3 F 82 23 H 121/79 93 10/11/25 09:00 98.1 F 84 22 H 121/59 L 92 10/11/25 08:07 82 28 H 10/11/25 08:05 82 95 Mechanical Ventilation 30 10/11/25 08:00 30 10/11/25 08:00 82 10/11/25 08:00 83 22 H 92 Mechanical Ventilation 30 10/11/25 08:00 98.1 F 84 23 H 109/62 94 10/11/25 07:59 82 24 H 10/11/25 07:00 97.7 F 83 22 H 89/64 L 94 10/11/25 06:00 93 10/11/25 06:00 98.0 F 93 22 H 127/62 95 10/11/25 05:00 97.7 F 85 22 H 97/54 L 95 10/11/25 04:54 84 94 Mechanical Ventilation 30 10/11/25 04:00 101 H 10/11/25 04:00 97.7 F 102 H 22 H 107/58 L 94 10/11/25 04:00 30 10/11/25 04:00 84 22 H 97 Mechanical Ventilation 30 10/11/25 03:00 97.3 F L 101 H 22 H 99/65 L 95 10/11/25 02:00 102 H 10/11/25 02:00 97.5 F L 102 H 22 H 114/62 96 10/11/25 01:56 83 24 H 10/11/25 01:43 80 26 H 10/11/25 01:42 80 95 Mechanical Ventilation 35 10/11/25 01:00 97.4 F L 79 22 H 99/60 L 96 10/11/25 00:00 79 22 H 97 Mechanical Ventilation 30 10/11/25 00:00 30 10/11/25 00:00 83 10/11/25 00:00 97.2 F L 83 22 H 104/58 L 96 10/10/25 23:26 83 95 Mechanical Ventilation 35 10/10/25 23:00 97.4 F L 83 25 H 107/56 L 96 10/10/25 22:00 97.3 F L 84 22 H 113/68 97 10/10/25 22:00 84 10/10/25 21:26 88 30 H 10/10/25 21:01 80 30 H 10/10/25 21:00 80 96 Mechanical Ventilation 35 10/10/25 21:00 97.3 F L 80 25 H 114/64 96 10/10/25 20:00 74 24 H 90 Mechanical Ventilation 35 10/10/25 20:00 79 10/10/25 20:00 35 10/10/25 20:00 97.2 F L 80 23 H 107/61 90 10/10/25 19:00 97.2 F L 81 26 H 110/67 91 10/10/25 18:00 97.2 F L 83 19 126/94 H 94 10/10/25 18:00 83 10/10/25 17:00 97.0 F L 80 23 H 108/52 L 93 Intake/Output Intake/Output: Intake & Output 10/08/25 10/09/25 10/10/25 10/11/25 23:59 23:59 23:59 23:59 Intake Total 1943.7 2114 800 1067 Output Total 1400 1125 500 830 Balance 543.7 989 300 237 Meds/Results Medications: Active Medications Generic Name Dose Route Start Last Admin Trade Name Freq PRN Reason Stop Dose Admin Acetylcysteine 200 mg 10/09/25 14:00 10/11/25 13:52 Acetylcysteine 20% Inhal Soln 800 Mg/4 Ml Vial INHALATION 10/12/25 13:59 200 mg Q6HRT VIKA Administration Aspirin 81 mg 10/04/25 17:50 10/11/25 09:09 Aspirin 81 Mg Chewable Tablet PO 81 mg DAILY@0800 VIKA Administration Dextrose 12.5 gm 10/04/25 13:16 Dextrose 50% 25 Gm/50 Ml Syringe IV PUSH PRN PRN Hypoglycemia Protocol Dornase [place] 2.5 mg 10/09/25 10:40 10/11/25 07:55 Dornase [place] Inh Soln 1 Mg/Ml 2.5 Ml Amp INHALATION 2.5 mg Q12HRT VIKA Administration Glucagon 1 mg 10/04/25 13:16 Glucagon For Inj 1 Mg Vial IM PRN PRN Hypoglycemia Protocol Glucose 15 gm 10/04/25 13:16 Glucose Oral Gel 15 Gm Of Glucse In 37.5 Gm Tube PO PRN PRN Hypoglycemia Protocol Albumin Human 100 mls @ 60 mls/hr 10/04/25 12:00 10/11/25 12:42 Albutein IVPB 60 mls/hr Q6HR VIKA Administration Dextrose 1,000 mls @ 100 mls/hr 10/04/25 13:16 Dextrose 5% 1,000 Ml IVPB PRN PRN Hypoglycemia Protocol Ceftriaxone Sodium 2 gm/ 100 mls @ 200 mls/hr 10/11/25 08:45 10/11/25 09:09 Sodium Chloride IVPB 200 mls/hr DAILY VIKA Administration Insulin Aspart 3 - 6 units 10/04/25 18:00 10/11/25 12:43 Insulin Aspart (*Bkc) 100 Units/Ml SUB-Q Not Given Q6HR VIKA Protocol Ipratropium [place] 0.5 mg 10/07/25 07:43 10/11/25 13:53 Ipratropium Br 0.02% Inh Soln 0.5 Mg/2.5 Ml Vial INHALATION 0.5 mg Q6HRT PRN Administration Wheezing Lactulose 20 gm 10/11/25 09:00 10/11/25 09:09 Lactulose 20 Gm/30 Ml Udc FEED TUBE Not Given DAILY VIKA Levalbuterol HCl 0.63 mg 10/07/25 07:44 10/11/25 13:53 Levalbuterol Neb 1.25 Mg/3 Ml INHALATION 0.63 mg Q6HRT PRN Administration Wheezing Metoclopramide HCl 10 mg 10/08/25 08:05 10/11/25 12:43 Metoclopramide Hcl 10 Mg Tablet FEED TUBE 10 mg Q6HR VIKA Administration Miscellaneous Information 0 each 10/11/25 00:01 Please Renew Dornase. Per [employer] Procedure, It Will Discontinue If Not Renewed XX 11/10/25 00:00 CLARIFY VIKA Multi-Ingred Cream/Lotion/Oil/Oint 1 applic 10/07/25 09:00 10/11/25 09:09 Mineral Oil/White Petrolatum Ointment EACH EYE 1 applic Q12HR VIKA Administration Pantoprazole Sodium 40 mg 10/04/25 21:00 10/11/25 09:10 Pantoprazole Sodium Iv 40 Mg Vial IV PUSH 40 mg Q12HR VIKA Administration Sodium Chloride 10 ml 10/04/25 14:00 10/11/25 13:10 Central Line Flush IV PUSH 10 ml Q8HR VIKA Administration Sodium Chloride 20 ml 10/04/25 09:27 10/09/25 06:04 Central Line Flush IV PUSH 20 ml PRN PRN Administration after blood draws Thiamine HCl 100 mg 10/05/25 09:00 10/11/25 09:10 Thiamine Hcl 200 Mg/2 Ml Vial IV PUSH 100 mg QAM VIKA Administration Radiology Results: ITS Impressions Head CT 10/04/25 07:09 IMPRESSION: 1. No acute intracranial findings. Chest/Abdomen/Pelvis CT 10/04/25 07:26 IMPRESSION: CHEST- 1. Interstitial pulmonary edema and small right pleural effusion. 2. Superimposed pneumonitis or interstitial lung disease not excluded. ABDOMEN/PELVIS- 1. Colonic hepatic flexure wall thickening. Colitis and/or malignancy. 2. Additional findings as above. Renal Ultrasound 10/05/25 13:44 Impression: 1: Unremarkable renal ultrasound. No stones, masses or hydronephrosis. 2: Splenomegaly. 3: Ascites. Chest X-Ray 10/11/25 08:14 Impression: CHF with superimposed probable pneumonia. The findings are markedly progressed Labs Labs: Laboratory Tests 10/11/25 04:57 10/11/25 04:57 Calcium 9.6 Phosphorus 5.1 H Magnesium 2.6 H Total Bilirubin 4.8 H AST 56 ALT 20 Alkaline Phosphatase 92 Ammonia < 9 L Total Protein 8.4 H Albumin 4.4 Microbiology 10/04/25 06:47 Blood Blood Culture - Final 10/04/25 06:21 Blood Blood Culture - Final 10/04/25 15:59 Sputum Sputum White Blood Cells - Final 10/04/25 15:59 Sputum Sputum Epithelial Cells - Final 10/04/25 15:59 Sputum Gram Stain Sputum Result 1 - Final 10/04/25 15:59 Sputum Gram Stain Sputum Result 2 - Final 10/04/25 15:59 Sputum Gram Stain Sputum Result 3 - Final 10/04/25 15:59 Sputum Gram Stain Sputum Result 4 - Final 10/04/25 15:59 Sputum Gram Stain Evaluation - Final 10/04/25 15:59 Sputum Sputum Culture - Final Pseudomonas aeruginosa Staphylococcus aureus
--- NOTE | 2025-10-11 13:11 | ECG_ITS ---
Test Date: 2025-10-11 13:20:49 Measurements Intervals [place] Rate: 122 P: 0 [place]: 0 QRS: -14 QRSD: 98 T: 134 QT: 309 QTc: 441 Interpretive Statements ATRIAL FIBRILLATION WITH RAPID VENTRICULAR RESPONSE CONSIDER INFERIOR INFARCT, AGE INDETERMINATE ST-T WAVE ABNORMALITY IN HIGH LATERAL LEADS- CONSIDER ISCHEMIA ABNORMAL ECG Compared to ECG 10/04/2025 05:16:45 SINUS TACHYCARDIA NO LONGER PRESENT Electronically Signed On 10-11-2025 13:31:22 MANAGER FINANCE by Zoltan Cummings D.O.
[2025-10-11] MEDS: METOPROLOL TARTRATE INJ 5 MG/5 ML VIAL IV PUSH (13:21)
[2025-10-11] MEDS: PHENYLEPHRINE HCL INJ 50 MG in SODIUM CHLORIDE 0.9% IV 245 ML 12 ML IV CONT (18:45)
[2025-10-12] VITALS (84 sets, daily range): BP systolic 95–173; BP diastolic 47–89; PULSE 95–120; RESP 13–32; TEMP 36.8–37.8; O2SAT 84–100
[2025-10-12] MEDS: IPRATROPIUM BR 0.02% INH SOLN 0.5 MG/2.5 ML VIAL INHALATION ×4 (02:41→20:10)
[2025-10-12] MEDS: ACETYLCYSTEINE 20% INHAL SOLN 800 MG/4 ML VIAL 200 MG INHALATION ×2 (02:41→08:00)
[2025-10-12 05:12] LABS: Alveolar/Arterial O2 Gradient 96.1 mmHg; Carboxyhemoglobin 1.3 % THb (0-2.0); Fractional Inspired Oxygen 30 %; HCO3 ABG 18.8 mEq/l (22.0-26.0); Methemoglobin ABG 0.3 %THb (0-1.5); Oxygen Content ABG 15.1 %vol (16.0-22.0); Oxygen Saturation ABG 95.6 % (95.0-100.0); PCO2 ABG 32.8 mmHg (35.0-45.0); PO2 ABG 79.3 mmHg (80.0-100.0); PO2 FiO2 Ratio Arterial Blood 2.64 %; Reduced Hemoglobin 4.7 %THb (0-5.0)
[2025-10-12 05:13] LABS: Arterial Blood Gas Tidal Volume 500 ml; Arterial Blood Gas Ventilator rate 22 /MIN; Modified Allen's Test Unable to perform; Site Drawn RIGHT RADIAL
[2025-10-12 05:26] LABS: Hematocrit 25.0 % (42.0-52.0); Hemoglobin 7.7 g/dL (14.0-18.0); Immature Granulocyte Percent A 3.8 % (0-0.5); Immature Platelet Fraction Pct 2.1 % (0.9-11.2); Lymphocytes Absolute Auto 1.02 K/mm3 (0.9-3.2); Mean Corpuscular HGB Conc 30.8 g/dl (32-36); Mean Corpuscular Hemoglobin 34.1 pg (26-34); Mean Corpuscular Volume 110.6 fl (80-100); Nucleated Red Blood Cells Absolute Auto 0.030 K/mm3 (0.0-0.012); Nucleated Red Blood Cells Perc 0.4 % (0.0-0.2); Platelet Count Result 59 k/mm3 (150-375); Red Blood Count 2.26 M/mm3 (4.6-6.20); White Blood Count 8.1 K/mm3 (4.5-10.0)
[2025-10-12 05:34] LABS: Ammonia < 9 umol/L (9-30)
[2025-10-12 05:35] LABS: INR 1.9; Prothrombin Time 21.3 Seconds (11.1-14.7)
[2025-10-12 05:36] LABS: Partial Thromboplastin Time 40.9 Seconds (22.3-36.8)
[2025-10-12 05:38] LABS: Alanine Aminotransferase 21 U/L (6-50); Albumin Level 4.4 g/dL (3.5-5.1); Alkaline Phosphatase 82 U/L (38-126); Anion Gap 11 mmol/L (4-12); Aspartate Amino Transferase 51 U/L (17-59); Bilirubin,Total 5.6 mg/dL (0.2-1.3); Blood Urea Nitrogen 91 mg/dL (9-20); Calcium 9.9 mg/dL (8.4-10.2); Carbon Dioxide 21 mmol/L (22-30); Chloride 114 mmol/L (98-107); Estimated CRCL calculation 26 ml/min; Estimated Glomerular Filt Rate 14; Glucose 195 mg/dL (65-110); Magnesium 2.4 mg/dL (1.6-2.3); Potassium 3.6 mmol/L (3.4-5.0); Sodium 146 mmol/L (137-145); Total Protein 8.4 g/dL (6.3-8.2)
[2025-10-12] MEDS: CENTRAL LINE FLUSH 10 ML IV PUSH ×3 (05:53→20:47)
[2025-10-12] MEDS: METOCLOPRAMIDE HCL 10 MG TABLET FEED TUBE (05:53)
[2025-10-12 05:58] LABS: Schistocytes None Seen
[2025-10-12 05:59] LABS: Hypochromasia 1+
[2025-10-12 06:00] LABS: Anisocytosis Occasional; Tear Drop Cells Occasional
[2025-10-12] MEDS: DORNASE ALFA INH SOLN 1 MG/ML 2.5 ML AMP 2.5 MG INHALATION ×2 (08:15→20:05)
[2025-10-12] MEDS: dexmedeTOMIDine 400 MCG/100 ML 400 MCG/100 ML BAG 8.56 MCG IV CONT (08:30)
[2025-10-12] MEDS: POTASSIUM CHLORIDE 20 MEQ ER TABLET PO (08:43)
[2025-10-12] MEDS: MINERAL OIL/WHITE PETROLATUM OINTMENT 1 APPLIC EACH EYE (08:44)
[2025-10-12] MEDS: LACTULOSE 20 GM/30 ML UDC FEED TUBE (08:44)
[2025-10-12] MEDS: THIAMINE HCL 200 MG/2 ML VIAL 100 MG IV PUSH (08:44)
[2025-10-12] MEDS: PANTOPRAZOLE SODIUM IV 40 MG VIAL IV PUSH ×2 (08:44→20:47)
[2025-10-12] MEDS: ASPIRIN 81 MG CHEWABLE TABLET PO (08:44)
[2025-10-12] MEDS: cefTRIAXone 2 GM in SODIUM CHLORIDE 0.9% IV 100 ML 200 ML IVPB (08:44)
--- NOTE | 2025-10-12 09:30 | PM.PNCARD ---
Progress Note: A&P Assessment and Plan (1) Elevated troponin: Code(s): R79.89 - Other specified abnormal findings of blood chemistry Status: Acute (2) Aortic stenosis: Code(s): I35.0 - Nonrheumatic aortic (valve) stenosis Status: Acute (3) Acute CHF: Code(s): I50.9 - Heart failure, unspecified Status: Acute Plan Assessment: -Acute diastolic heart failure; LVEF 55-60% -Elevated troponin of 4.720, 8.720, 13.00 without chest pain-most likely secondary to above; underlying CAD is also on the differential -Severe aortic stenosis-aortic valve area 0.9 cm2 and mean gradient 43 mm Hg -Other valvular heart disease: Mild to moderate aortic regurgitation, [id number] tricuspid regurgitation -Moderate pulmonary hypertension with PASP of 56 mm Hg -Acute hypoxic respiratory failure requiring intubation and sedation-multifactorial secondary to pneumonia, acute congestive heart failure, valvular heart disease -Hypertension but hypotensive at admission requiring pressors-now resolved, weaned off all pressors -Sepsis-on IV antibiotics -paroxysmal atrial fibrillation -Thrombocytopenia -59,000 -Anemia-hemoglobin 7.7 -MARIO on CKD -Altered mental status-could be multifactorial given severe MARIO, substance abuse, acute hypoxic respiratory failure, sepsis -Substance abuse-cocaine and cannabis Plan: -Creatinine 4.41 today. continue diuresis as needed and monitor renal function -Monitor on telemetry -Check and replace electrolytes to keep potassium greater than 4 and magnesium greater than 2 -Unable to add SGLT2 inhibitor as he has history of swelling from Jardiance -Check weight, ins and outs, renal function daily -had episode of afib with RVR on 10/11 and converted to NSR with IV metoprolol remains sinus tachycardia at this time -Resume carvedilol 3.125 mg p.o. b.i.d. when SBP greater than 120 mm Hg -No AC at this time as one time episode of afib, patient with anemia, thrombocytopenia and hematuria. Will monitor for recurrence -The elevated troponin in the absence of chest pain is most likely due to acute congestive heart failure and underlying acute illness. However patient does have multiple risk factors for CAD including diabetes mellitus, hypertension, middle-aged male. Recommend ischemia evaluation with cardiac catheterization after he recovers from his acute illness -Structural heart disease consult for severe aortic stenosis management after he recovers from his acute illness -Patient remains intubated and opening eyes this am. Noted to have agitation and now on Precedex -Management of other medical problems per primary team Subjective Date/time seen: 10/12/25 09:30 Interval history: Reason for encounter: Elevated troponin Event history: 65-year-old man with PMH of CKD, CHF, DM, BPH, and HTN was found down on the ground by his altered and unable to get up. Patient's called EMS who found him in respiratory distress with an SpO2 of 89% on room air. Patient was brought to the ER at which time he was awake, alert and oriented answering questions. He was febrile, tachycardic, tachypneic, hypoxic requiring supplemental oxygen for assistance, and became hypotensive with BP 62/36. He did not have any complaints of chest pain. No specific complaints of chest pain at that time. Patient's condition deteriorated and he was started on pressors. His respiratory condition deteriorated requiring intubation and mechanical ventilation. He was admitted to the ICU for further care. Workup at presentation include Lactic 5.9, WBC 16K, chronic thrombocytopenia, nongap metabolic acidosis, Cr 1.8, UDS positive for cocaine and cannabinoids, EtOH level 23, CXR-no acute cardiopulmonary findings but possibly pulmonary fibrosis, head CT-no acute intracranial findings, CT chest abdomen pelvis- interstitial pulmonary edema, small right pleural effusion, colonic hepatic flexure wall thickening consistent with colitis and/or malignancy and cirrhosis. Troponin was noted to be elevated at 4.720, 8.720, 13.0, [place] [id number], TTE showed LVEF 55-60%, severe aortic stenosis with aortic valve area of 0.9 cm2 and mean gradient of 43 mm Hg, mild to moderate aortic regurgitation, mild to moderate tricuspid regurgitation, moderate pulmonary hypertension with pulmonary artery systolic pressure of 56 mm Hg. Cardiology was consulted for elevated troponin. NSTEMI was ruled out as patient did not have any chest pain. Interval history: Patient remains intubated without any purposeful movements. No further history can be obtained. Telemetry shows sinus rhythm. Date of Service 10/12/25: Patient remains on vent support. He is opening eyes to voice. Had some agitation this am and started on Precedex drip. Currently sinus tachycardia on monitor, but was noted to have episode of afib with RVR this am. Review of Systems Review of Systems: Patient is intubated and sedated and no further history could be obtained from him. ROS unobtainable: Yes unobtainable due to endotracheal tube Exam Narrative: General: Intubated, opening eyes to voice Neck: Supple, unable to assess JVD Chest: Bilaterally clear to auscultation, no rales or rhonchi Cardiac: S1, S2 +, tachy rate, regular rhythm, systolic murmur Extremities: Bilateral lower extremity edema 1+, no skin rash Neurologic: Intubated Const: Other: Morbidly obese intubated chronically ill-appearing white male HENMT: Mouth: Yes moist mucous membranes Eyes: Sclera: sclerae normal Neck: Other: Patient has very thick neck no ability to discern venous distention carotid pulses are grossly intact bilateral Resp: Other: Breath sounds are grossly clear anterior Cardio: Rate: regular rate Rhythm: regular rhythm Other: Low pitched grade 2/6 crescendo decrescendo murmur is audible at the base GI: Auscultation: normal bowel sounds Urinary Catheter: Urinary Catheter: patent and draining Skin: General skin exam: normal color Neuro: Other: Intubated/sedated Extrem: Other: Chronically edematous changes of venous insufficiency Objective Data Vital Signs Vital Signs: Vital Signs - 24 hr 10/11/25 10:00 10/11/25 10:00 10/11/25 10:40 Temperature 36.8 C Pulse Rate 82 81 82 Respiratory Rate 23 H Blood Pressure 121/79 Pulse Oximetry 93 93 Oxygen Delivery Mechanical Ventilation Fraction of Inspired Oxygen 30 10/11/25 11:00 10/11/25 11:00 10/11/25 12:00 Temperature 36.9 C 36.9 C 37.1 C Pulse Rate 89 89 118 H Respiratory Rate 22 H 26 H 30 H Blood Pressure 101/77 101/77 93/47 L Pulse Oximetry 95 94 94 Oxygen Delivery Fraction of Inspired Oxygen 10/11/25 12:00 10/11/25 12:00 10/11/25 12:00 Temperature Pulse Rate 107 H 118 H Respiratory Rate 22 H Blood Pressure Pulse Oximetry 95 Oxygen Delivery Mechanical Ventilation Fraction of Inspired Oxygen 30 30 10/11/25 13:00 10/11/25 13:21 10/11/25 13:53 Temperature 37.1 C Pulse Rate 111 H 123 H 105 H Respiratory Rate 22 H 24 H Blood Pressure 101/51 L Pulse Oximetry 94 Oxygen Delivery Fraction of Inspired Oxygen 10/11/25 14:00 10/11/25 14:00 10/11/25 14:02 Temperature 37.1 C Pulse Rate 113 H 120 H 124 H Respiratory Rate 24 H Blood Pressure 92/57 L Pulse Oximetry 95 95 Oxygen Delivery Mechanical Ventilation Fraction of Inspired Oxygen 30 10/11/25 14:04 10/11/25 15:00 10/11/25 16:00 Temperature 37.2 C 37.2 C Pulse Rate 124 H 116 H 116 H Respiratory Rate 25 H 22 H 23 H Blood Pressure 90/61 L 91/54 L Pulse Oximetry 96 95 Oxygen Delivery Fraction of Inspired Oxygen 10/11/25 16:00 10/11/25 16:00 10/11/25 16:00 Temperature Pulse Rate 113 H 113 H Respiratory Rate 20 Blood Pressure Pulse Oximetry 93 Oxygen Delivery Mechanical Ventilation Fraction of Inspired Oxygen 30 30 10/11/25 17:00 10/11/25 17:30 10/11/25 18:00 Temperature 37.2 C 37.3 C Pulse Rate 112 H 104 H 107 H Respiratory Rate 20 23 H Blood Pressure 84/64 L 91/49 L Pulse Oximetry 97 95 96 Oxygen Delivery Mechanical Ventilation Fraction of Inspired Oxygen 30 10/11/25 18:00 10/11/25 18:45 10/11/25 19:00 Temperature 37.1 C Pulse Rate 107 H 108 H 108 H Respiratory Rate 25 H Blood Pressure 91/49 L 112/69 Pulse Oximetry 95 Oxygen Delivery Fraction of Inspired Oxygen 10/11/25 20:00 10/11/25 20:00 10/11/25 20:00 Temperature 37.3 C Pulse Rate 107 H 111 H Respiratory Rate 19 27 H Blood Pressure 118/70 Pulse Oximetry 94 95 Oxygen Delivery Mechanical Ventilation Fraction of Inspired Oxygen 30 30 10/11/25 20:00 10/11/25 20:00 10/11/25 20:30 Temperature Pulse Rate 111 H 107 H 110 H Respiratory Rate 22 H Blood Pressure 118/70 Pulse Oximetry Oxygen Delivery Fraction of Inspired Oxygen 10/11/25 20:34 10/11/25 20:41 10/11/25 21:00 Temperature 37.4 C Pulse Rate 111 H 106 H 114 H Respiratory Rate 27 H 26 H Blood Pressure 119/71 Pulse Oximetry 95 94 Oxygen Delivery Mechanical Ventilation Fraction of Inspired Oxygen 30 10/11/25 22:00 10/11/25 22:00 10/11/25 22:00 Temperature 37.6 C Pulse Rate 108 H 108 H 108 H Respiratory Rate 26 H Blood Pressure 104/78 104/78 Pulse Oximetry 91 Oxygen Delivery Fraction of Inspired Oxygen 10/11/25 23:00 10/11/25 23:03 10/12/25 00:00 Temperature 37.6 C H Pulse Rate 117 H 111 H 108 H Respiratory Rate 27 H Blood Pressure 108/61 Pulse Oximetry 94 94 Oxygen Delivery Mechanical Ventilation Fraction of Inspired Oxygen 30 10/12/25 00:00 10/12/25 00:00 10/12/25 00:00 Temperature 37.7 C H Pulse Rate 108 H 108 H Respiratory Rate 25 H 25 H Blood Pressure 108/65 Pulse Oximetry 94 94 Oxygen Delivery Mechanical Ventilation Fraction of Inspired Oxygen 30 30 10/12/25 00:00 10/12/25 01:00 10/12/25 01:59 Temperature 37.7 C H Pulse Rate 111 H 109 H 111 H Respiratory Rate 26 H Blood Pressure 108/65 108/65 Pulse Oximetry 94 94 Oxygen Delivery Mechanical Ventilation Fraction of Inspired Oxygen 30 10/12/25 02:00 10/12/25 02:00 10/12/25 02:00 Temperature 37.8 C H Pulse Rate 110 H 110 H 110 H Respiratory Rate 23 H Blood Pressure 106/53 L 106/53 L Pulse Oximetry 94 Oxygen Delivery Fraction of Inspired Oxygen 10/12/25 02:41 10/12/25 02:48 10/12/25 03:00 Temperature 37.6 C H Pulse Rate 114 H 110 H 107 H Respiratory Rate 26 H 22 H 26 H Blood Pressure 99/60 L Pulse Oximetry 93 Oxygen Delivery Fraction of Inspired Oxygen 10/12/25 04:00 10/12/25 04:00 10/12/25 04:00 Temperature 37.7 C H Pulse Rate 109 H 109 H Respiratory Rate 23 H Blood Pressure 96/52 L Pulse Oximetry 92 Oxygen Delivery Fraction of Inspired Oxygen 30 10/12/25 04:00 10/12/25 04:00 10/12/25 05:05 Temperature Pulse Rate 109 H 109 H 114 H Respiratory Rate 27 H Blood Pressure 96/52 L Pulse Oximetry 92 96 Oxygen Delivery Mechanical Ventilation Mechanical Ventilation Fraction of Inspired Oxygen 30 30 10/12/25 05:30 10/12/25 06:00 10/12/25 06:00 Temperature 37.3 C Pulse Rate 110 H 110 H 110 H Respiratory Rate 23 H 24 H Blood Pressure 126/76 117/68 Pulse Oximetry 95 97 Oxygen Delivery Fraction of Inspired Oxygen 10/12/25 06:00 10/12/25 07:00 10/12/25 07:00 Temperature 37.2 C Pulse Rate 110 H 109 H 110 H Respiratory Rate 22 H Blood Pressure 117/68 116/60 116/60 Pulse Oximetry Oxygen Delivery Fraction of Inspired Oxygen 10/12/25 08:00 10/12/25 08:02 10/12/25 08:09 Temperature 37.2 C Pulse Rate 109 H 107 H 120 H Respiratory Rate 24 H Blood Pressure 118/81 Pulse Oximetry Oxygen Delivery Mechanical Ventilation Fraction of Inspired Oxygen 30 10/12/25 08:16 10/12/25 08:30 10/12/25 08:45 Temperature Pulse Rate 115 H 119 H Respiratory Rate 20 24 H Blood Pressure 137/87 Pulse Oximetry 95 Oxygen Delivery Fraction of Inspired Oxygen 10/12/25 09:00 10/12/25 09:00 Temperature 37.3 C Pulse Rate 118 H 113 H Respiratory Rate 30 H 18 Blood Pressure 173/89 H Pulse Oximetry Oxygen Delivery Fraction of Inspired Oxygen Intake/Output Intake/Output: Intake & Output 10/09/25 10/10/25 10/11/25 10/12/25 23:59 23:59 23:59 23:59 Intake Total 2114 900 1906 655.7 Output Total 9747 366 9162 550 Balance 989 400 776 105.7 Meds/Results Medications: Active Medications Generic Name Dose Route Start Last Admin Trade Name Freq PRN Reason Stop Dose Admin Acetylcysteine 200 mg 10/09/25 14:00 10/12/25 08:00 Acetylcysteine 20% Inhal Soln 800 Mg/4 Ml Vial INHALATION 10/12/25 13:59 200 mg Q6HRT VIKA Administration Aspirin 81 mg 10/04/25 17:50 10/12/25 08:44 Aspirin 81 Mg Chewable Tablet PO 81 mg DAILY@0800 [facility] Administration Dextrose 12.5 gm 10/04/25 13:16 Dextrose 50% 25 Gm/50 Ml Syringe IV PUSH PRN PRN Hypoglycemia Protocol Dornase [place] 2.5 mg 10/09/25 10:40 10/11/25 20:29 Dornase [place] Inh Soln 1 Mg/Ml 2.5 Ml Amp INHALATION 2.5 mg Q12HRT VIKA Administration Glucagon 1 mg 10/04/25 13:16 Glucagon For Inj 1 Mg Vial IM PRN PRN Hypoglycemia Protocol Glucose 15 gm 10/04/25 13:16 Glucose Oral Gel 15 Gm Of Glucse In 37.5 Gm Tube PO PRN PRN Hypoglycemia Protocol Dextrose 1,000 mls @ 100 mls/hr 10/04/25 13:16 Dextrose 5% 1,000 Ml IVPB PRN PRN Hypoglycemia Protocol Ceftriaxone Sodium 2 gm/ 100 mls @ 200 mls/hr 10/11/25 08:45 10/12/25 08:44 Sodium Chloride IVPB 200 mls/hr DAILY VIKA Administration Phenylephrine HCl 50 mg/ 250 mls @ 0 mls/hr 10/11/25 18:25 10/12/25 08:45 Sodium Chloride IV CONT 0 mcg/min .Q0M VIKA 0 mls/hr Protocol Titration 0 MCG/MIN Dexmedetomidine HCl 400 mcg in 100 mls @ 17.12 mls/hr 10/12/25 08:40 10/12/25 09:00 Precedex 400 Mcg/100 Ml IV CONT 0.4 mcg/kg/hr .Q5H51M VIKA 17.12 mls/hr Protocol Titration 0.4 MCG/KG/HR Insulin Aspart 3 - 6 units 10/04/25 18:00 10/12/25 05:53 Insulin Aspart (*Bkc) 100 Units/Ml SUB-Q Not Given Q6HR VIKA Protocol Ipratropium [place] 0.5 mg 10/07/25 07:43 10/12/25 08:11 Ipratropium Br 0.02% Inh Soln 0.5 Mg/2.5 Ml Vial INHALATION 0.5 mg Q6HRT PRN Administration Wheezing Lactulose 20 gm 10/11/25 09:00 10/12/25 08:44 Lactulose 20 Gm/30 Ml Udc FEED TUBE 20 gm DAILY VIKA Administration Levalbuterol HCl 0.63 mg 10/07/25 07:44 10/12/25 08:11 Levalbuterol Neb 1.25 Mg/3 Ml INHALATION 0.63 mg Q6HRT PRN Administration Wheezing Miscellaneous Information 0 each 10/11/25 00:01 Please Renew Dornase. Per [employer] Procedure, It Will Discontinue If Not Renewed XX 11/10/25 00:00 CLARIFY VIKA Multi-Ingred Cream/Lotion/Oil/Oint 1 applic 10/07/25 09:00 10/12/25 08:44 Mineral Oil/White Petrolatum Ointment EACH EYE 1 applic Q12HR VIKA Administration Pantoprazole Sodium 40 mg 10/04/25 21:00 10/12/25 08:44 Pantoprazole Sodium Iv 40 Mg Vial IV PUSH 40 mg Q12HR VIKA Administration Sodium Chloride 10 ml 10/04/25 14:00 10/12/25 05:53 Central Line Flush IV PUSH 10 ml Q8HR VIKA Administration Sodium Chloride 20 ml 10/04/25 09:27 10/09/25 06:04 Central Line Flush IV PUSH 20 ml PRN PRN Administration after blood draws Thiamine HCl 100 mg 10/05/25 09:00 10/12/25 08:44 Thiamine Hcl 200 Mg/2 Ml Vial IV PUSH 100 mg QAM VIKA Administration Radiology Results: ITS Impressions Head CT 10/04/25 07:09 IMPRESSION: 1. No acute intracranial findings. Chest/Abdomen/Pelvis CT 10/04/25 07:26 IMPRESSION: CHEST- 1. Interstitial pulmonary edema and small right pleural effusion. 2. Superimposed pneumonitis or interstitial lung disease not excluded. ABDOMEN/PELVIS- 1. Colonic hepatic flexure wall thickening. Colitis and/or malignancy. 2. Additional findings as above. Renal Ultrasound 10/05/25 13:44 Impression: 1: Unremarkable renal ultrasound. No stones, masses or hydronephrosis. 2: Splenomegaly. 3: Ascites. Chest X-Ray 10/12/25 07:20 IMPRESSION: 1. Lines and tubes in expected position. 2. Bilateral pulmonary edema and/or pneumonia. 3. Small left pleural effusion. Labs Labs: Laboratory Results - last 24 hr 10/11/25 10/11/25 10/11/25 11:19 18:25 23:42 WBC RBC Hgb Hct MCV MCH MCHC RDW Plt Count MPV Immature Gran % (Auto) Neut % (Auto) Lymph % (Auto) [place] % (Auto) Eos % (Auto) Baso % (Auto) Lymph # (Auto) [place] # (Auto) Eos # (Auto) Baso # (Auto) Abs Immat Gran (auto) Absolute Neuts (auto) Absolute Nucleated RBC Band Neutrophils % Nucleated RBC % Platelet Estimate % Immature Plt Fraction Hypochromasia Anisocytosis Tear Drop Cells Schistocytes PT INR APTT Puncture Site ABG pH ABG pCO2 ABG pO2 ABG PO2/FiO2 Ratio ABG HCO3 ABG O2 Saturation ABG O2 Content ABG Base Excess A-a Gradient Oxyhemoglobin Carboxyhemoglobin Methemoglobin Reduced Hemoglobin Total Hemoglobin O2 Delivery Device O2 Liters/Min Minute Volume Vent Rate Vent Mode FiO2 Tidal Volume PEEP Peak Inspir Pressure Pressure Support Sodium Potassium Chloride Carbon Dioxide Anion Gap BUN Creatinine Estim Creat Clear Calc Estimated GFR Glucose POC Capillary Glucose 197 H 177 H 180 H Lactic Acid Calcium Phosphorus Magnesium Total Bilirubin AST ALT Alkaline Phosphatase Ammonia Total Protein Albumin 10/12/25 10/12/25 04:54 05:07 WBC 8.1 RBC 2.26 L Hgb 7.7 L Hct 25.0 L MCV 110.6 H MCH 34.1 H MCHC 30.8 L RDW 16.1 H Plt Count 59 L MPV 10.3 Immature Gran % (Auto) 3.8 H Neut % (Auto) 68.3 Lymph % (Auto) 12.6 L [place] % (Auto) 11.0 H Eos % (Auto) 3.8 Baso % (Auto) 0.5 Lymph # (Auto) 1.02 [place] # (Auto) 0.9 H Eos # (Auto) 0.3 Baso # (Auto) 0.0 Abs Immat Gran (auto) 0.31 H Absolute Neuts (auto) 5.5 Absolute Nucleated RBC 0.030 H Band Neutrophils % Not Reportable Nucleated RBC % 0.4 H Platelet Estimate Decreased % Immature Plt Fraction 2.1 Hypochromasia 1+ Anisocytosis Occasional Tear Drop Cells Occasional Schistocytes None seen PT 21.3 H INR 1.9 APTT 40.9 H Puncture Site Right radial ABG pH 7.377 ABG pCO2 32.8 L ABG pO2 79.3 L ABG PO2/FiO2 Ratio 2.64 ABG HCO3 18.8 L ABG O2 Saturation 95.6 ABG O2 Content 15.1 L ABG Base Excess -5.5 A-a Gradient 96.1 Oxyhemoglobin 93.7 Carboxyhemoglobin 1.3 Methemoglobin 0.3 Reduced Hemoglobin 4.7 Total Hemoglobin 11.4 L O2 Delivery Device Ventilator O2 Liters/Min Not Reportable Minute Volume Not Reportable Vent Rate 22 Vent Mode Cmv FiO2 30 Tidal Volume 500 PEEP 10 Peak Inspir Pressure Not Reportable Pressure Support Not Reportable Sodium 146 H Potassium 3.6 Chloride 114 H Carbon Dioxide 21 L Anion Gap 11 BUN 91 H Creatinine 4.41 H Estim Creat Clear Calc 26 Estimated GFR 14 L Glucose 195 H POC Capillary Glucose Lactic Acid 1.4 Calcium 9.9 Phosphorus 4.4 Magnesium 2.4 H Total Bilirubin 5.6 H AST 51 ALT 21 Alkaline Phosphatase 82 Ammonia < 9 L Total Protein 8.4 H Albumin 4.4
[2025-10-12] MEDS: FUROSEMIDE INJ 40 MG/4 ML VIAL 60 MG IV PUSH (10:02)
--- NOTE | 2025-10-12 11:40 | P.PNNP_ITS ---
Progress Note: A&P Assessment and Plan (1) Acute kidney injury: Code(s): N17.9 - Acute kidney failure, unspecified Status: Acute Assessment and Plan: * as noted by labs on 10/05 (creatinine up to 2.87mg/dL) * admission creatinine at baseline * complicated by diminished urine output and volume overload * however, somewhat responsive to diuretics * suspect multifactorial etiology: * hemodynamic instability/shock * infection/sepsis * hypoxia * cocaine use * CHF * rhabdomyolysis * NSTEMI * pre renal factors * other(?) * evaluation to date noted: * renal ultrasound shows normal kidneys * CK was elevated but trending down (although was high enough to cause damage to the kidneys) * UA shows blood protein and red cells * urine electrolytes (FeNA & FeUrea) reflect a pre renal state * urine eosinophils negative * moderate proteinuria * IV diuretics PRN * still remains at risk for [facility]/dialysis * however, no urgent need at this time * follow trend of repeat labs and UOP (2) Stage 3b chronic kidney disease: Code(s): N18.32 - Chronic kidney disease, stage 3b Status: Chronic Assessment and Plan: * creatinine 1.87mg/dL ~ 8 months ago on hospital discharge * was fluctuating 1.8 - 2.2mg/dL in the context of IV diuresis in January 2025 * prior to that, creatinine was ~ 1.1 - 1.2 in March of 2023 * presumably due to combination of diuretic use for CHF, diabetes, and hypertension +/- vascular disease (3) Septic shock: Code(s): A41.9 - Sepsis, unspecified organism; R65.21 - Severe sepsis with septic shock Status: Acute Assessment and Plan: * presented with hypotension unresponsive to IVF resuscitation * s/p 3.5L IVFs with no improvement in blood pressure * s/p RIJ central line placement and initiation of vasopressor therapy * suspected source include pneumonia, lower abdominal wall cellulitis, and/or heart failure * follow culture data (blood, sputum, and urine) * sputum culture with Pseudomonas and Staph aureus * lactic acid has normalized * cultures negative so far * weaned off vasopressor therapy * on antibiotics (4) Acute respiratory failure: Code(s): J96.00 - Acute respiratory failure, unspecified whether with hypoxia or hypercapnia Status: Acute Assessment and Plan: * intubated in ER for impending respiratory failure * noted hypoxia * worsening SOB with IVF resuscitation * decline in respiratory status felt to be secondary to CHF +/- pnuemonia * on bronchodilator therapy * ventilator weaning as tolerated (5) Acute CHF: Code(s): I50.9 - Heart failure, unspecified Status: Acute Assessment and Plan: * known history * admission CXR with pulmonary vascular congestion * last Echo (01/16/25) noted: * left ventricular systolic function is normal, estimated at 65 - 70% * left ventricular diastolic function is grade I diastolic dysfunction * moderate to severe aortic valve stenosis with a peak velocity of 407 cm/s, mean gradient of 43 mmHg, and aortic valve area of 1.2 cm2 * mild aortic valve regurgitation * mild to moderate tricuspid valve regurgitation * pulmonary hypertension, estimated pulmonary arterial systolic pressure is 48 mmHg * repeat Echo (10/05/25) reviewed: * left ventricular systolic function is normal, estimated at 55 - 60% * left ventricular diastolic function is abnormal * severe aortic valve stenosis with a peak velocity of 435 cm/s, mean gradient of 43 mmHg, and aortic valve area of 0.9 cm2 * mild to moderate aortic valve regurgitation * mild mitral valve regurgitation * mild to moderate tricuspid valve regurgitation * moderate pulmonary hypertension, estimated pulmonary arterial systolic pressure is 56 mmHg * trace pulmonic regurgitation * with better hemodynamics, started on IV diuretics * follow I/Os, daily weights, and respiratory status * Cardiology following (6) Anasarca: Code(s): R60.1 - Generalized edema Status: Acute Assessment and Plan: * likely a combination of CHF , MARIO, and liver cirrhosis/hypoalbuminemia * Echo as noted (see #5) * ongoing diuresis given better hemodynamics (7) Cirrhosis: Code(s): K74.60 - Unspecified cirrhosis of liver Status: Acute Assessment and Plan: * as noted by CT imaging: * noted spleen enlargement and cirrhosis * also with anasarca * trend bilirubin and LFTs * on lactulose (ammonia level has normalized) * GI following (8) Anemia: Code(s): D64.9 - Anemia, unspecified Status: Acute Assessment and Plan: * as noted * concern for GI loss given bleeding noted from OG tube * this appears to have resolved * suspect related to MARIO, CKD, and liver disease/cirrhosis * PRBC transfusion per protocol * consider PATRICIA given #1 and #2 (9) Thrombocytopenia: Code(s): D69.6 - Thrombocytopenia, unspecified Status: Acute Assessment and Plan: * chronic issue * saw Heme/Onc in the past and this is felt to be related to cirrhosis and alcohol use * platelet transfusion PRN (10) DM2 (diabetes mellitus, type 2): Code(s): E11.9 - Type 2 diabetes mellitus without complications Status: Chronic Assessment and Plan: * follow accu-cheks * glycemic control per molder floor/hospitalist Will continue to follow. L Subjective Date/time seen: 10/12/25 11:40 Interval history: Follow-up for acute kidney injury/acute renal failure on chronic kidney disease. Remains intubated and on mechanical ventilation; reasonable urine output with use of diuretic therapy; hemodynamically stable without the need for vasopressor therapy; placed back on sedation due to agitation; fluctuating heart rate with episode of Afib with RVR that converted to NSR with use beta-irasema therapy. Objective Data Vital Signs Vital Signs: Vital Signs Temp Pulse Resp BP Pulse Ox O2 Del Method O2 Flow Rate 10/12/25 11:30 105 H 18 10/12/25 11:00 99.1 F 105 H 23 H 100/63 94 10/12/25 10:30 101 H 32 H 10/12/25 10:13 95 10/12/25 10:00 108 H 100/60 10/12/25 10:00 100 26 H 10/12/25 10:00 96 10/12/25 10:00 99.2 F 97 18 95/64 L 10/12/25 09:30 108 H 28 H 10/12/25 09:00 99.2 F 113 H 18 173/89 H 10/12/25 09:00 118 H 30 H 10/12/25 08:45 119 H 137/87 10/12/25 08:30 105 H 93 Mechanical Ventilation 10/12/25 08:30 115 H 24 H 10/12/25 08:20 115 H 24 H 10/12/25 08:16 20 95 10/12/25 08:09 120 H 24 H 10/12/25 08:02 107 H Mechanical Ventilation 10/12/25 08:00 102 H 118/81 10/12/25 08:00 107 H 10/12/25 08:00 95 24 H 93 Mechanical Ventilation 10/12/25 08:00 98.9 F 109 H 118/81 10/12/25 07:00 110 H 116/60 10/12/25 07:00 98.9 F 109 H 22 H 116/60 10/12/25 06:00 110 H 117/68 10/12/25 06:00 110 H 10/12/25 06:00 99.1 F 110 H 24 H 117/68 97 10/12/25 05:30 110 H 23 H 126/76 95 10/12/25 05:05 114 H 96 Mechanical Ventilation 10/12/25 04:00 109 H 96/52 L 10/12/25 04:00 109 H 27 H 92 Mechanical Ventilation 10/12/25 04:00 10/12/25 04:00 109 H 10/12/25 04:00 99.8 F H 109 H 23 H 96/52 L 92 10/12/25 03:00 99.7 F H 107 H 26 H 99/60 L 93 10/12/25 02:48 110 H 22 H 10/12/25 02:41 114 H 26 H 10/12/25 02:00 110 H 106/53 L 10/12/25 02:00 110 H 10/12/25 02:00 100.0 F H 110 H 23 H 106/53 L 94 10/12/25 01:59 111 H 94 Mechanical Ventilation 10/12/25 01:00 99.9 F H 109 H 26 H 108/65 94 10/12/25 00:00 111 H 108/65 10/12/25 00:00 108 H 25 H 94 Mechanical Ventilation 10/12/25 00:00 10/12/25 00:00 99.8 F H 108 H 25 H 108/65 94 10/12/25 00:00 108 H 10/11/25 23:03 111 H 94 Mechanical Ventilation 10/11/25 23:00 99.7 F H 117 H 27 H 108/61 94 10/11/25 22:00 108 H 104/78 10/11/25 22:00 108 H 10/11/25 22:00 99.6 F 108 H 26 H 104/78 91 10/11/25 21:00 99.4 F 114 H 26 H 119/71 94 10/11/25 20:41 106 H 27 H 10/11/25 20:34 111 H 95 Mechanical Ventilation 10/11/25 20:30 110 H 22 H 10/11/25 20:00 107 H 118/70 10/11/25 20:00 111 H 10/11/25 20:00 111 H 27 H 95 Mechanical Ventilation 10/11/25 20:00 10/11/25 20:00 99.2 F 107 H 19 118/70 94 10/11/25 19:00 98.8 F 108 H 25 H 112/69 95 10/11/25 18:45 108 H 91/49 L Intake/Output Intake/Output: Intake & Output 10/09/25 10/10/25 10/11/25 10/12/25 23:59 23:59 23:59 23:59 Intake Total 2114 900 1906 819.9 Output Total 2781 156 9959 850 Balance 989 400 776 -30.1 Meds/Results Medications: Active Medications Generic Name Dose Route Start Last Admin Trade Name Freq PRN Reason Stop Dose Admin Aspirin 81 mg 10/04/25 17:50 10/12/25 08:44 Aspirin 81 Mg Chewable Tablet PO 81 mg DAILY@0800 VIKA Administration Dextrose 12.5 gm 10/04/25 13:16 Dextrose 50% 25 Gm/50 Ml Syringe IV PUSH PRN PRN Hypoglycemia Protocol Dornase [place] 2.5 mg 10/09/25 10:40 10/12/25 08:15 Dornase [place] Inh Soln 1 Mg/Ml 2.5 Ml Amp INHALATION 2.5 mg Q12HRT VIKA Administration Glucagon 1 mg 10/04/25 13:16 Glucagon For Inj 1 Mg Vial IM PRN PRN Hypoglycemia Protocol Glucose 15 gm 10/04/25 13:16 Glucose Oral Gel 15 Gm Of Glucse In 37.5 Gm Tube PO PRN PRN Hypoglycemia Protocol Dextrose 1,000 mls @ 100 mls/hr 10/04/25 13:16 Dextrose 5% 1,000 Ml IVPB PRN PRN Hypoglycemia Protocol Ceftriaxone Sodium 2 gm/ 100 mls @ 200 mls/hr 10/11/25 08:45 10/12/25 09:15 Sodium Chloride IVPB Infused DAILY VIKA Infusion Phenylephrine HCl 50 mg/ 250 mls @ 0 mls/hr 10/11/25 18:25 10/12/25 15:40 Sodium Chloride IV CONT Infused .Q0M VIKA Titration Protocol 0 MCG/MIN Insulin Aspart 3 - 6 units 10/04/25 18:00 10/12/25 17:48 Insulin Aspart (*Bkc) 100 Units/Ml SUB-Q Not Given Q6HR [facility] Protocol Ipratropium [place] 0.5 mg 10/07/25 07:43 10/12/25 14:36 Ipratropium Br 0.02% Inh Soln 0.5 Mg/2.5 Ml Vial INHALATION 0.5 mg Q6HRT PRN Administration Wheezing Lactulose 20 gm 10/11/25 09:00 10/12/25 08:44 Lactulose 20 Gm/30 Ml Udc FEED TUBE 20 gm DAILY VIKA Administration Levalbuterol HCl 0.63 mg 10/07/25 07:44 10/12/25 14:35 Levalbuterol Neb 1.25 Mg/3 Ml INHALATION 0.63 mg Q6HRT PRN Administration Wheezing Miscellaneous Information 0 each 10/11/25 00:01 Please Renew Dornase. Per [employer] Procedure, It Will Discontinue If Not Renewed XX 11/10/25 00:00 CLARIFY VIKA Multi-Ingred Cream/Lotion/Oil/Oint 1 applic 10/07/25 09:00 10/12/25 08:44 Mineral Oil/White Petrolatum Ointment EACH EYE 1 applic Q12HR VIKA Administration Pantoprazole Sodium 40 mg 10/04/25 21:00 10/12/25 08:44 Pantoprazole Sodium Iv 40 Mg Vial IV PUSH 40 mg Q12HR VIKA Administration Sodium Chloride 10 ml 10/04/25 14:00 10/12/25 15:42 Central Line Flush IV PUSH 10 ml Q8HR VIKA Administration Sodium Chloride 20 ml 10/04/25 09:27 10/09/25 06:04 Central Line Flush IV PUSH 20 ml PRN PRN Administration after blood draws Thiamine HCl 100 mg 10/05/25 09:00 10/12/25 08:44 Thiamine Hcl 200 Mg/2 Ml Vial IV PUSH 100 mg QAM VIKA Administration Radiology Results: ITS Impressions Head CT 10/04/25 07:09 IMPRESSION: 1. No acute intracranial findings. Chest/Abdomen/Pelvis CT 10/04/25 07:26 IMPRESSION: CHEST- 1. Interstitial pulmonary edema and small right pleural effusion. 2. Superimposed pneumonitis or interstitial lung disease not excluded. ABDOMEN/PELVIS- 1. Colonic hepatic flexure wall thickening. Colitis and/or malignancy. 2. Additional findings as above. Renal Ultrasound 10/05/25 13:44 Impression: 1: Unremarkable renal ultrasound. No stones, masses or hydronephrosis. 2: Splenomegaly. 3: Ascites. Chest X-Ray 10/12/25 07:20 IMPRESSION: 1. Lines and tubes in expected position. 2. Bilateral pulmonary edema and/or pneumonia. 3. Small left pleural effusion. Labs Labs: Laboratory Tests 10/12/25 05:07 10/12/25 05:07 Lactic Acid 1.4 Calcium 9.9 Phosphorus 4.4 Magnesium 2.4 H Total Bilirubin 5.6 H AST 51 ALT 21 Alkaline Phosphatase 82 Ammonia < 9 L Total Protein 8.4 H Albumin 4.4 Microbiology 10/04/25 06:47 Blood Blood Culture - Final 10/04/25 06:21 Blood Blood Culture - Final
--- NOTE | 2025-10-12 12:40 | PCNFU ---
Nutrition Follow-Up Complete: Suboptimal Energy Intake as related to mechanical ventilation as evidenced by NPO. Meet estimated nutritional needs - Not progressing currently as tube feedings are on hold. Continue progress to goal when medically appropriate Goal: Pt current nutrition is Nepro @ 45 ml/h ON HOLD for possible extubation. Nutrition recommendation: Pt will need diabetic consistent carb diet when diet is advanced. Last recorded weight is 171.2 kg. Bowel Motility: +1 BM 10/12 Labs Reviewed: Hgb 7.7, Hct 25, Na 146, BUN 91, Cre 4.41, Glu 195 Meds Noted: Precedex, thiamine, lactulose, flagyl, cefepime Skin: No skin issues Additional Notes: Plan for possible extubation today. Resume tube feeding if not extubated. Diet advancement per MD. Will monitor weight, labs, skin, diet orders, meds every Wednesday and Wednesday.
--- NOTE | 2025-10-12 13:14 | P.PNINT_ITS ---
Assessment and Plan Assessment and Plan (1) Acute respiratory failure: Code(s): J96.00 - Acute respiratory failure, unspecified whether with hypoxia or hypercapnia Status: Acute Assessment and Plan: 10/04: Patient presented the ED via EMS with complains of generalized weakness, fevers, shortness of breath and fever. When EMS arrived to his house he was found on the ground, unable to get up off the floor. Patient's O2 sats were in the 80s on room air. Patient was placed on supplemental oxygen. In the ED patient was awake, alert, oriented was able to answer questions. O2 sats were improved but he was hypotensive, once he was given IV fluids per sepsis protocol he was more short of breath and was intubated -10/04: Intubated in the ER for impending respiratory failure likely related to CHF -currently CMV mode of ventilation,PEEP to 10 30% FiO2 -chest x-ray shows pulmonary congestion and ABGs reviewed -wean FiO2 to maintain O2 sats > 92% -continue bronchodilators -sedated with fentany infusion, maintain RASS of 0 to -2 -sedation holiday -10/07 off of vasopressors. Started on Lasix. Patient will need diuresis secondary to volume overload before weaning trial 10/08 Continue Lasix and diuresis. Off sedation 10/09: Continue diuresis with Lasix, ammonia levels are normal, patient on lactulose 10/10: Will diurese with Bumex and albumin as patient still positive 9 L since admission, and also place patient on pressure support ventilation 10/12 and will continue to wean pressure support, goal is to extubate the patient in the next day or so 10/11: Will diurese again today, patient did tolerate PSV 10/12 for approximately [address] on pressure support ventilation and / today and evaluate. Patient 15 to AFib, breathing 30 times a minute, looked uncomfortable after being placed on pressure support ventilation. Patient was switched to to CMV mode, will re-evaluate related while admit place him back on pressure support ventilation 10/12: Patient was placed on SBT today as he was significantly awake, was agitated with redirectable. Was started on Precedex, after which he was too sedated, still on pressure support / and tolerating, awaiting him to wake up so I can extubate him. Diuresed him with albumin and Lasix (2) Septic shock: Code(s): A41.9 - Sepsis, unspecified organism; R65.21 - Severe sepsis with septic shock Status: Acute Assessment and Plan: Patient with hypotension, likely related to pneumonia, possible lower abdomen cellulitis as seen on the CT scan. Could be related to heart failure -10/04: patient received 3.5 L IV fluid bolus in the ER, despite which his blood pressures remain low, is right-sided IJ central line was inserted, patient started on Levophed Off vasopressors now Overall volume overloaded hence off IV fluids -complete a course of cefepime, metronidazole, -completed a course azithromycin (10/04). vancomycin DISCONTINUED (10/07) -10/04: Blood cultures resulted on 10/11/2025, growing Streptococcus dysgalactiae / bottles -10/04: Urine cultures negative -10/04: sputum culture growing Pseudomonas and Staphylococcus aureus which was resulted on 10/09/2025 -10/04: Obtain urine Legionella and strep pneumo antigen, negative 10/11: Started patient on ceftriaxone for blood cultures being positive for Streptococcus dysgalactiae, 10/11: repeat blood cultures 01/16/2025: Echocardiogram Summary 1. Left ventricular chamber dimension is normal. 2. Left ventricular systolic function is normal, estimated at 65-70%. 3. There is mildly increased left ventricular wall thickness. 4. The left ventricular diastolic function is grade I diastolic dysfunction. 5. Right ventricular systolic function is normal. 6. Left atrial chamber dimension is moderately enlarged. 7. Right atrial chamber dimension is moderately enlarged. 8. There is moderate aortic valve calcification. 9. There is moderate to severe aortic valve stenosis with a peak velocity of407 cm/s, mean gradient of 43 mmHg, and aortic valve area of 1.2 cm2. 10. There is mild aortic valve regurgitation. 11. There is mild to moderate tricuspid valve regurgitation. 12. Pulmonary hypertension, estimated pulmonary arterial systolic pressure is 48 mmHg. (3) MARIO (acute kidney injury): Code(s): N17.9 - Acute kidney failure, unspecified Status: Acute Assessment and Plan: Acute kidney injury, creatinine 1.83 on admission, (1.87-2.19 in January of 2025, prior to that patient's creatinine was 1.10-1.20 in March of 2023) -patient received 3.5 L of IV fluid bolus in the ER and albumin. Off further IV fluids -10/08 patient was given Lasix over last 24 hours with improved urine output a lthough creatinine continues to increase slightly to 4.39. Continue Lasix. Will discuss with Nephrology. May issue and may still need dialysis although no emergent indication for dialysis at this time. - Nephrology following. -continue to monitor renal function, electrolytes and urine output -10/05/2025: Renal ultrasound did not show any stones, masses or hydronephrosis. Showed splenomegaly, ascites -10/09: Nephrology following the patient, good urine output in response to diuresis, creatinine trending up, discussed with Nephrology, will continue to monitor for now, electrolytes are stable -10/10: Patient with adequate urine output in response to diuresis, creatinine trending up, and electrolytes still stable. Will give albumin and Bumex today since patient has history of cirrhosis 10/12: Continues to respond to diuresis, creatinine may have peaked, this morning trending down gradually. Continue to monitor. Nephrology following (4) Acute CHF: Code(s): I50.9 - Heart failure, unspecified Status: Acute Assessment and Plan: Patient has history of CHF, he does take furosemide at home, echocardiogram as above -chest x-ray shows pulmonary vascular congestion after receiving IV fluid -echo as above, diastolic heart failure (5) DM2 (diabetes mellitus, type 2): Code(s): E11.9 - Type 2 diabetes mellitus without complications Status: Chronic Assessment and Plan: Accu-Cheks and sliding scale insulin (6) Thrombocytopenia: Code(s): D69.6 - Thrombocytopenia, unspecified Status: Acute Assessment and Plan: Chronic thrombocytopenia could be related to cirrhosis, alcohol use -patient was evaluated by Oncology on 01/28/2023 -platelets low but stable. Continue to monitor, -will transfuse if needed (7) Cirrhosis: Code(s): K74.60 - Unspecified cirrhosis of liver Status: Acute Assessment and Plan: CT scan of the abdomen and pelvis showed spleen enlargement and cirrhosis -patient also has anasarca -elevated bilirubin -appreciate GI evaluation recommendation -continue lactulose for elevated ammonia, -10/09: Ammonia level at 30, continue lactulose which will also help with constipation -ammonia levels have normalized, continue lactulose daily (8) Anasarca: Code(s): R60.1 - Generalized edema Status: Acute Assessment and Plan: Likely related to cirrhosis and congestive heart failure Continue diuresis (9) GI bleed: Code(s): K92.2 - Gastrointestinal hemorrhage, unspecified Status: Acute Assessment and Plan: OG tube has blood draining, could be related to trauma secondary to OG tube placement or variceal bleed or gastritis as patient has cirrhosis -Protonix IV q.12 hours -appreciate GI evaluation, no more GI bleeding noted from the OG tube -patient does have cirrhosis, MELD score of 26 (10) Anemia: Code(s): D64.9 - Anemia, unspecified Status: Acute Assessment and Plan: Patient also has anemia with hemoglobin of 10.7 (which is close to his baseline) -will continue to monitor, hemoglobin has been stable, continue to monitor - transfuse for hemoglobin < 7.0 (11) Aortic stenosis: Code(s): I35.0 - Nonrheumatic aortic (valve) stenosis Status: Acute Assessment and Plan: Moderate to severe aortic valve stenosis with mean gradient of 43 mmHg and aortic valve area of 1.2 cm2 -off IV fluids -repeat echocardiogram as above (12) NSTEMI (non-ST elevated myocardial infarction): Code(s): I21.4 - Non-ST elevation (NSTEMI) myocardial infarction Status: Acute Assessment and Plan: 10/04: Troponins were 4.720, 8.720 and 13.00. -cardiology was consulted, recommended starting heparin infusion -10/05: Heparin infusion was discontinued as this was thought to be secondary to type 2 myocardial infarction secondary to anemia, hypotension, respiratory failure and septic shock. -appreciate cardiology evaluation recommendation, no intervention at this time Plan DVT prophylaxis: SCDs, no chemoprophylaxis due to thrombocytopenia, anemia, patient also had bloody drainage from his OG tube on admission which has cleared up Stress ulcer prophylaxis: Protonix IV q.12 hours Nutrition: Continue tube feeds Code Status: Full code Critical Care Time Spent: 33 minutes Discussed with patient's at length, updated with patient's condition and plan of care. I explained to her regarding placing patient on SBT and evaluating for extubation. I discussed at length regarding what if the patient fails after extubation, she does not want to be intubated., does not want him to get a tracheostomy or a PEG tube Due to a high probability of clinically significant, life threatening deterioration, the patient required my highest level of preparedness to int ervene emergently and I personally spent this critical care time directly and personally managing the patient. This critical care time included obtaining a history; examining the patient; pulse oximetry; ordering and review of studies; arranging urgent treatment with development of a management plan; evaluation of patient's response to treatment; frequent reassessment; and discussions with other providers. It was exclusive of separately billable procedures and treating other patients and teaching time. Please see Assessment and Plan section and the rest of the note for further information on patient assessment and treatment This dictation may have been done utilizing a voice recognition system. Attempts have been made to correct errors. However, there may be uncorrected grammatical, spelling, and recognitions errors present. Subjective Date/time seen: 10/12/25 13:14 Interval history: Interval history: Reason for consult: Septic shock, pneumonia, pulmonary vascular congestion, colitis, acute kidney injury 10/12/2025: Patient seen and examined the ICU, remains intubated, on CMV mode of ventilation, peep of 5 and 30% FiO2. Patient is off all sedation, tolerating SBT 8/, with getting agitated, started on Precedex infusion, now too sedated. Urine output has been adequate in response to diuresis, patient has been afebrile, hemodynamically stable. Tolerating tube feeds, positive bowel movements He went into AFib RVR last evening, requiring a small dose of beta-irasema, patient did convert to sinus rhythm, mildly tachycardic with heart rates in the 90s to 100s Review of Systems Review of Systems: ROS unobtainable: Yes unobtainable due to endotracheal tube, unobtainable due to medical condition and unobtainable due to mental status Exam Narrative: General: Intubated, in no acute distress HEENT:? Pupils equal and reactive, sclera is icteric, ETT in place Neck:? Thick neck, right IJ central line in place Respiratory:? Coarse breath sounds bilaterally, decreased at bases, no wheezing Cardiac:? S1-S2 is normal, regular rate and rhythm, 2/6 ejection systolic murmur in the aortic area Abdomen:? Soft, nontender, nondistended, obese, normoactive bowel sounds, thickening of the skin on the lower part of the abdomen Extremities:? Bilateral upper and lower extremity edematous, palpable pedal pulses Neuro:? Patient is intubated, not on any sedation, opens his eyes, follows simple commands in all extremities Skin:? Chronic venous stasis changes and chronic skin discoloration which is likely due to diabetes according the . Patient also has a callus on the ball of the right toe Psych:? Unable to assess at this time Objective Data Vital Signs Vital Signs: Vital Signs - 24 hr 10/11/25 13:21 10/11/25 13:53 10/11/25 14:00 Temperature Pulse Rate 123 H 105 H 113 H Respiratory Rate 24 H Blood Pressure Pulse Oximetry Oxygen Delivery Fraction of Inspired Oxygen 10/11/25 14:00 10/11/25 14:02 10/11/25 14:04 Temperature 98.8 F Pulse Rate 120 H 124 H 124 H Respiratory Rate 24 H 25 H Blood Pressure 92/57 L Pulse Oximetry 95 95 Oxygen Delivery Mechanical Ventilation Fraction of Inspired Oxygen 30 10/11/25 15:00 10/11/25 16:00 10/11/25 16:00 Temperature 99 F 99.0 F Pulse Rate 116 H 116 H 113 H Respiratory Rate 22 H 23 H Blood Pressure 90/61 L 91/54 L Pulse Oximetry 96 95 Oxygen Delivery Fraction of Inspired Oxygen 10/11/25 16:00 10/11/25 16:00 10/11/25 17:00 Temperature 99.0 F Pulse Rate 113 H 112 H Respiratory Rate 20 20 Blood Pressure 84/64 L Pulse Oximetry 93 97 Oxygen Delivery Mechanical Ventilation Fraction of Inspired Oxygen 30 30 10/11/25 17:30 10/11/25 18:00 10/11/25 18:00 Temperature 99.1 F Pulse Rate 104 H 107 H 107 H Respiratory Rate 23 H Blood Pressure 91/49 L Pulse Oximetry 95 96 Oxygen Delivery Mechanical Ventilation Fraction of Inspired Oxygen 30 10/11/25 18:45 10/11/25 19:00 10/11/25 20:00 Temperature 98.8 F 99.2 F Pulse Rate 108 H 108 H 107 H Respiratory Rate 25 H 19 Blood Pressure 91/49 L 112/69 118/70 Pulse Oximetry 95 94 Oxygen Delivery Fraction of Inspired Oxygen 10/11/25 20:00 10/11/25 20:00 10/11/25 20:00 Temperature Pulse Rate 111 H 111 H Respiratory Rate 27 H Blood Pressure Pulse Oximetry 95 Oxygen Delivery Mechanical Ventilation Fraction of Inspired Oxygen 30 30 10/11/25 20:00 10/11/25 20:30 10/11/25 20:34 Temperature Pulse Rate 107 H 110 H 111 H Respiratory Rate 22 H Blood Pressure 118/70 Pulse Oximetry 95 Oxygen Delivery Mechanical Ventilation Fraction of Inspired Oxygen 30 10/11/25 20:41 10/11/25 21:00 10/11/25 22:00 Temperature 99.4 F 99.6 F Pulse Rate 106 H 114 H 108 H Respiratory Rate 27 H 26 H 26 H Blood Pressure 119/71 104/78 Pulse Oximetry 94 91 Oxygen Delivery Fraction of Inspired Oxygen 10/11/25 22:00 10/11/25 22:00 10/11/25 23:00 Temperature 99.7 F H Pulse Rate 108 H 108 H 117 H Respiratory Rate 27 H Blood Pressure 104/78 108/61 Pulse Oximetry 94 Oxygen Delivery Fraction of Inspired Oxygen 10/11/25 23:03 10/12/25 00:00 10/12/25 00:00 Temperature 99.8 F H Pulse Rate 111 H 108 H 108 H Respiratory Rate 25 H Blood Pressure 108/65 Pulse Oximetry 94 94 Oxygen Delivery Mechanical Ventilation Fraction of Inspired Oxygen 30 10/12/25 00:00 10/12/25 00:00 10/12/25 00:00 Temperature Pulse Rate 108 H 111 H Respiratory Rate 25 H Blood Pressure 108/65 Pulse Oximetry 94 Oxygen Delivery Mechanical Ventilation Fraction of Inspired Oxygen 30 30 10/12/25 01:00 10/12/25 01:59 10/12/25 02:00 Temperature 99.9 F H 100.0 F H Pulse Rate 109 H 111 H 110 H Respiratory Rate 26 H 23 H Blood Pressure 108/65 106/53 L Pulse Oximetry 94 94 94 Oxygen Delivery Mechanical Ventilation Fraction of Inspired Oxygen 30 10/12/25 02:00 10/12/25 02:00 10/12/25 02:41 Temperature Pulse Rate 110 H 110 H 114 H Respiratory Rate 26 H Blood Pressure 106/53 L Pulse Oximetry Oxygen Delivery Fraction of Inspired Oxygen 10/12/25 02:48 10/12/25 03:00 10/12/25 04:00 Temperature 99.7 F H 99.8 F H Pulse Rate 110 H 107 H 109 H Respiratory Rate 22 H 26 H 23 H Blood Pressure 99/60 L 96/52 L Pulse Oximetry 93 92 Oxygen Delivery Fraction of Inspired Oxygen 10/12/25 04:00 10/12/25 04:00 10/12/25 04:00 Temperature Pulse Rate 109 H 109 H Respiratory Rate 27 H Blood Pressure Pulse Oximetry 92 Oxygen Delivery Mechanical Ventilation Fraction of Inspired Oxygen 30 30 10/12/25 04:00 10/12/25 05:05 10/12/25 05:30 Temperature Pulse Rate 109 H 114 H 110 H Respiratory Rate 23 H Blood Pressure 96/52 L 126/76 Pulse Oximetry 96 95 Oxygen Delivery Mechanical Ventilation Fraction of Inspired Oxygen 30 10/12/25 06:00 10/12/25 06:00 10/12/25 06:00 Temperature 99.1 F Pulse Rate 110 H 110 H 110 H Respiratory Rate 24 H Blood Pressure 117/68 117/68 Pulse Oximetry 97 Oxygen Delivery Fraction of Inspired Oxygen 10/12/25 07:00 10/12/25 07:00 10/12/25 08:00 Temperature 98.9 F 98.9 F Pulse Rate 109 H 110 H 109 H Respiratory Rate 22 H Blood Pressure 116/60 116/60 118/81 Pulse Oximetry Oxygen Delivery Fraction of Inspired Oxygen 10/12/25 08:00 10/12/25 08:00 10/12/25 08:00 Temperature Pulse Rate 95 107 H 102 H Respiratory Rate 24 H Blood Pressure 118/81 Pulse Oximetry 93 Oxygen Delivery Mechanical Ventilation Fraction of Inspired Oxygen 30 10/12/25 08:02 10/12/25 08:09 10/12/25 08:16 Temperature Pulse Rate 107 H 120 H Respiratory Rate 24 H 20 Blood Pressure Pulse Oximetry 95 Oxygen Delivery Mechanical Ventilation Fraction of Inspired Oxygen 30 10/12/25 08:20 10/12/25 08:30 10/12/25 08:30 Temperature Pulse Rate 115 H 115 H 105 H Respiratory Rate 24 H 24 H Blood Pressure Pulse Oximetry 93 Oxygen Delivery Mechanical Ventilation Fraction of Inspired Oxygen 30 10/12/25 08:45 10/12/25 09:00 10/12/25 09:00 Temperature 99.2 F Pulse Rate 119 H 118 H 113 H Respiratory Rate 30 H 18 Blood Pressure 137/87 173/89 H Pulse Oximetry Oxygen Delivery Fraction of Inspired Oxygen 10/12/25 09:30 10/12/25 10:00 10/12/25 10:00 Temperature 99.2 F Pulse Rate 108 H 97 96 Respiratory Rate 28 H 18 Blood Pressure 95/64 L Pulse Oximetry Oxygen Delivery Fraction of Inspired Oxygen 10/12/25 10:00 10/12/25 10:00 10/12/25 10:13 Temperature Pulse Rate 100 108 H Respiratory Rate 26 H Blood Pressure 100/60 Pulse Oximetry 95 Oxygen Delivery Fraction of Inspired Oxygen 10/12/25 10:30 10/12/25 11:00 10/12/25 11:30 Temperature 99.1 F Pulse Rate 101 H 105 H 105 H Respiratory Rate 32 H 23 H 18 Blood Pressure 100/63 Pulse Oximetry 94 Oxygen Delivery Fraction of Inspired Oxygen 10/12/25 11:43 10/12/25 12:00 10/12/25 12:00 Temperature 98.9 F Pulse Rate 105 H 103 H 106 H Respiratory Rate 22 H Blood Pressure 99/75 L 99/75 L Pulse Oximetry 93 93 Oxygen Delivery Mechanical Ventilation Fraction of Inspired Oxygen 30 10/12/25 12:00 10/12/25 12:00 10/12/25 12:00 Temperature Pulse Rate 104 H 103 H Respiratory Rate 20 Blood Pressure Pulse Oximetry Oxygen Delivery Fraction of Inspired Oxygen 30 10/12/25 12:00 10/12/25 13:00 Temperature 98.9 F Pulse Rate 105 H 105 H Respiratory Rate 20 20 Blood Pressure 104/77 Pulse Oximetry 93 94 Oxygen Delivery Mechanical Ventilation Fraction of Inspired Oxygen 30 Intake/Output Intake/Output: Intake & Output 10/09/25 10/10/25 10/11/25 10/12/25 23:59 23:59 23:59 23:59 Intake Total 2114 900 1906 719.9 Output Total 5539 342 6489 750 Balance 989 400 776 -30.1 Meds/Results Medications: Active Medications Generic Name Dose Route Start Last Admin Trade Name Freq PRN Reason Stop Dose Admin Acetylcysteine 200 mg 10/09/25 14:00 10/12/25 08:00 Acetylcysteine 20% Inhal Soln 800 Mg/4 Ml Vial INHALATION 10/12/25 13:59 200 mg Q6HRT VIKA Administration Aspirin 81 mg 10/04/25 17:50 10/12/25 08:44 Aspirin 81 Mg Chewable Tablet PO 81 mg DAILY@0800 [facility] Administration Dextrose 12.5 gm 10/04/25 13:16 Dextrose 50% 25 Gm/50 Ml Syringe IV PUSH PRN PRN Hypoglycemia Protocol Dornase Darwin 2.5 mg 10/09/25 10:40 10/12/25 08:15 Dornase Darwin Inh Soln 1 Mg/Ml 2.5 Ml Amp INHALATION 2.5 mg Q12HRT VIKA Administration Glucagon 1 mg 10/04/25 13:16 Glucagon For Inj 1 Mg Vial IM PRN PRN Hypoglycemia Protocol Glucose 15 gm 10/04/25 13:16 Glucose Oral Gel 15 Gm Of Glucse In 37.5 Gm Tube PO PRN PRN Hypoglycemia Protocol Dextrose 1,000 mls @ 100 mls/hr 10/04/25 13:16 Dextrose 5% 1,000 Ml IVPB PRN PRN Hypoglycemia Protocol Ceftriaxone Sodium 2 gm/ 100 mls @ 200 mls/hr 10/11/25 08:45 10/12/25 08:44 Sodium Chloride IVPB 200 mls/hr DAILY VIKA Administration Phenylephrine HCl 50 mg/ 250 mls @ 0 mls/hr 10/11/25 18:25 10/12/25 12:00 Sodium Chloride IV CONT 0 mcg/min .Q0M VIKA 0 mls/hr Protocol Titration 0 MCG/MIN Dexmedetomidine HCl 400 mcg in 100 mls @ 0 mls/hr 10/12/25 08:40 10/12/25 12:00 Precedex 400 Mcg/100 Ml IV CONT 0 mcg/kg/hr .Q0M VIKA 0 mls/hr Protocol Titration 0 MCG/KG/HR Insulin Aspart 3 - 6 units 10/04/25 18:00 10/12/25 12:01 Insulin Aspart (*Bkc) 100 Units/Ml SUB-Q Not Given Q6HR VIKA Protocol Ipratropium [place] 0.5 mg 10/07/25 07:43 10/12/25 08:11 Ipratropium Br 0.02% Inh Soln 0.5 Mg/2.5 Ml Vial INHALATION 0.5 mg Q6HRT PRN Administration Wheezing Lactulose 20 gm 10/11/25 09:00 10/12/25 08:44 Lactulose 20 Gm/30 Ml Udc FEED TUBE 20 gm DAILY VIKA Administration Levalbuterol HCl 0.63 mg 10/07/25 07:44 10/12/25 08:11 Levalbuterol Neb 1.25 Mg/3 Ml INHALATION 0.63 mg Q6HRT PRN Administration Wheezing Miscellaneous Information 0 each 10/11/25 00:01 Please Renew Dornase. Per [employer] Procedure, It Will Discontinue If Not Renewed XX 11/10/25 00:00 CLARIFY VIKA Multi-Ingred Cream/Lotion/Oil/Oint 1 applic 10/07/25 09:00 10/12/25 08:44 Mineral Oil/White Petrolatum Ointment EACH EYE 1 applic Q12HR VIKA Administration Pantoprazole Sodium 40 mg 10/04/25 21:00 10/12/25 08:44 Pantoprazole Sodium Iv 40 Mg Vial IV PUSH 40 mg Q12HR VIKA Administration Sodium Chloride 10 ml 10/04/25 14:00 10/12/25 05:53 Central Line Flush IV PUSH 10 ml Q8HR VIKA Administration Sodium Chloride 20 ml 10/04/25 09:27 10/09/25 06:04 Central Line Flush IV PUSH 20 ml PRN PRN Administration after blood draws Thiamine HCl 100 mg 10/05/25 09:00 10/12/25 08:44 Thiamine Hcl 200 Mg/2 Ml Vial IV PUSH 100 mg QAM VIKA Administration Radiology Results: ITS Impressions Head CT 10/04/25 07:09 IMPRESSION: 1. No acute intracranial findings. Chest/Abdomen/Pelvis CT 10/04/25 07:26 IMPRESSION: CHEST- 1. Interstitial pulmonary edema and small right pleural effusion. 2. Superimposed pneumonitis or interstitial lung disease not excluded. ABDOMEN/PELVIS- 1. Colonic hepatic flexure wall thickening. Colitis and/or malignancy. 2. Additional findings as above. Renal Ultrasound 10/05/25 13:44 Impression: 1: Unremarkable renal ultrasound. No stones, masses or hydronephrosis. 2: Splenomegaly. 3: Ascites. Chest X-Ray 10/12/25 07:20 IMPRESSION: 1. Lines and tubes in expected position. 2. Bilateral pulmonary edema and/or pneumonia. 3. Small left pleural effusion. Labs Labs: Laboratory Results - last 24 hr 10/11/25 10/11/25 10/12/25 18:25 23:42 04:54 WBC RBC Hgb Hct MCV MCH MCHC RDW Plt Count MPV Immature Gran % (Auto) Neut % (Auto) Lymph % (Auto) [place] % (Auto) Eos % (Auto) Baso % (Auto) Lymph # (Auto) [place] # (Auto) Eos # (Auto) Baso # (Auto) Abs Immat Gran (auto) Absolute Neuts (auto) Absolute Nucleated RBC Band Neutrophils % Nucleated RBC % Platelet Estimate % Immature Plt Fraction Hypochromasia Anisocytosis Tear Drop Cells Schistocytes PT INR APTT Puncture Site Right radial ABG pH 7.377 ABG pCO2 32.8 L ABG pO2 79.3 L ABG PO2/FiO2 Ratio 2.64 ABG HCO3 18.8 L ABG O2 Saturation 95.6 ABG O2 Content 15.1 L ABG Base Excess -5.5 A-a Gradient 96.1 Oxyhemoglobin 93.7 Carboxyhemoglobin 1.3 Methemoglobin 0.3 Reduced Hemoglobin 4.7 Total Hemoglobin 11.4 L O2 Delivery Device Ventilator O2 Liters/Min Not Reportable Minute Volume Not Reportable Vent Rate 22 Vent Mode Cmv FiO2 30 Tidal Volume 500 PEEP 10 Peak Inspir Pressure Not Reportable Pressure Support Not Reportable Sodium Potassium Chloride Carbon Dioxide Anion Gap BUN Creatinine Estim Creat Clear Calc Estimated GFR Glucose POC Capillary Glucose 177 H 180 H Lactic Acid Calcium Phosphorus Magnesium Total Bilirubin AST ALT Alkaline Phosphatase Ammonia Total Protein Albumin 10/12/25 10/12/25 05:07 11:48 WBC 8.1 RBC 2.26 L Hgb 7.7 L Hct 25.0 L MCV 110.6 H MCH 34.1 H MCHC 30.8 L RDW 16.1 H Plt Count 59 L MPV 10.3 Immature Gran % (Auto) 3.8 H Neut % (Auto) 68.3 Lymph % (Auto) 12.6 L [place] % (Auto) 11.0 H Eos % (Auto) 3.8 Baso % (Auto) 0.5 Lymph # (Auto) 1.02 [place] # (Auto) 0.9 H Eos # (Auto) 0.3 Baso # (Auto) 0.0 Abs Immat Gran (auto) 0.31 H Absolute Neuts (auto) 5.5 Absolute Nucleated RBC 0.030 H Band Neutrophils % Not Reportable Nucleated RBC % 0.4 H Platelet Estimate Decreased % Immature Plt Fraction 2.1 Hypochromasia 1+ Anisocytosis Occasional Tear Drop Cells Occasional Schistocytes None seen PT 21.3 H INR 1.9 APTT 40.9 H Puncture Site ABG pH ABG pCO2 ABG pO2 ABG PO2/FiO2 Ratio ABG HCO3 ABG O2 Saturation ABG O2 Content ABG Base Excess A-a Gradient Oxyhemoglobin Carboxyhemoglobin Methemoglobin Reduced Hemoglobin Total Hemoglobin O2 Delivery Device O2 Liters/Min Minute Volume Vent Rate Vent Mode FiO2 Tidal Volume PEEP Peak Inspir Pressure Pressure Support Sodium 146 H Potassium 3.6 Chloride 114 H Carbon Dioxide 21 L Anion Gap 11 BUN 91 H Creatinine 4.41 H Estim Creat Clear Calc 26 Estimated GFR 14 L Glucose 195 H POC Capillary Glucose 205 H Lactic Acid 1.4 Calcium 9.9 Phosphorus 4.4 Magnesium 2.4 H Total Bilirubin 5.6 H AST 51 ALT 21 Alkaline Phosphatase 82 Ammonia < 9 L Total Protein 8.4 H Albumin 4.4 Quality VTE Prophylaxis VTE prophylaxis: mechanical ordered
[2025-10-12 14:30] LABS: Alveolar/Arterial O2 Gradient 102.7 mmHg; Carboxyhemoglobin 1.3 % THb (0-2.0); Fractional Inspired Oxygen 30 %; HCO3 ABG 20.4 mEq/l (22.0-26.0); Methemoglobin ABG 0.0 %THb (0-1.5); Oxygen Content ABG 11.1 %vol (16.0-22.0); Oxygen Saturation ABG 93.2 % (95.0-100.0); PCO2 ABG 36.6 mmHg (35.0-45.0); PO2 ABG 68.2 mmHg (80.0-100.0); PO2 FiO2 Ratio Arterial Blood 2.27 %; Reduced Hemoglobin 7.8 %THb (0-5.0)
[2025-10-12 14:32] LABS: Modified Allen's Test Pass; Site Drawn LEFT RADIAL
[2025-10-12 14:33] LABS: Arterial Blood Gas Pressure Support 8 cmH2O
[2025-10-13] VITALS (31 sets, daily range): BP systolic 82–127; BP diastolic 35–81; PULSE 101–115; RESP 16–29; TEMP 36.2–36.8; O2SAT 88–99
[2025-10-13 02:46] LABS: Alveolar/Arterial O2 Gradient 224.3 mmHg; Carboxyhemoglobin 1.4 % THb (0-2.0); Fractional Inspired Oxygen 52 %; HCO3 ABG 22.5 mEq/l (22.0-26.0); Methemoglobin ABG 0.1 %THb (0-1.5); Oxygen Content ABG 11.7 %vol (16.0-22.0); Oxygen Saturation ABG 97.1 % (95.0-100.0); PCO2 ABG 43.2 mmHg (35.0-45.0); PO2 ABG 98.1 mmHg (80.0-100.0); PO2 FiO2 Ratio Arterial Blood 1.89 %; Reduced Hemoglobin 3.2 %THb (0-5.0)
[2025-10-13 02:47] LABS: Liters per Minute 8.0 LPM; Modified Allen's Test Pass; Site Drawn LEFT RADIAL
[2025-10-13 04:04] LABS: Hematocrit 24.9 % (42.0-52.0); Hemoglobin 7.6 g/dL (14.0-18.0); Immature Granulocyte Percent A 1.9 % (0-0.5); Immature Platelet Fraction Pct 2.6 % (0.9-11.2); Lymphocytes Absolute Auto 1.01 K/mm3 (0.9-3.2); Mean Corpuscular HGB Conc 30.5 g/dl (32-36); Mean Corpuscular Hemoglobin 34.4 pg (26-34); Mean Corpuscular Volume 112.7 fl (80-100); Nucleated Red Blood Cells Absolute Auto 0.020 K/mm3 (0.0-0.012); Nucleated Red Blood Cells Perc 0.3 % (0.0-0.2); Red Blood Count 2.21 M/mm3 (4.6-6.20); White Blood Count 6.2 K/mm3 (4.5-10.0)
[2025-10-13 04:12] LABS: Ammonia 18 umol/L (9-30)
[2025-10-13 04:22] LABS: Platelet Count Result 54 k/mm3 (150-375)
[2025-10-13 04:24] LABS: Anisocytosis 1+; Hypochromasia 1+; Polychromasia Occasional
[2025-10-13 04:25] LABS: Schistocytes None Seen; Tear Drop Cells 1+
[2025-10-13 04:28] LABS: Alanine Aminotransferase 21 U/L (6-50); Albumin Level 4.3 g/dL (3.5-5.1); Alkaline Phosphatase 77 U/L (38-126); Anion Gap 12 mmol/L (4-12); Aspartate Amino Transferase 52 U/L (17-59); Bilirubin,Total 5.4 mg/dL (0.2-1.3); Blood Urea Nitrogen 105 mg/dL (9-20); Calcium 9.8 mg/dL (8.4-10.2); Carbon Dioxide 21 mmol/L (22-30); Chloride 116 mmol/L (98-107); Estimated CRCL calculation 25 ml/min; Estimated Glomerular Filt Rate 13; Glucose 160 mg/dL (65-110); Magnesium 2.5 mg/dL (1.6-2.3); Potassium 3.9 mmol/L (3.4-5.0); Sodium 149 mmol/L (137-145); Total Protein 8.8 g/dL (6.3-8.2)
[2025-10-13] MEDS: CENTRAL LINE FLUSH 10 ML IV PUSH ×2 (04:36→14:15)
[2025-10-13] MEDS: DORNASE ALFA INH SOLN 1 MG/ML 2.5 ML AMP 2.5 MG INHALATION (07:53)
[2025-10-13] MEDS: PHYTONADIONE ADULT INJ 10 MG in DEXTROSE 5% IN WATER 50 ML 100 MG IVPB (08:13)
[2025-10-13] MEDS: cefTRIAXone 2 GM in SODIUM CHLORIDE 0.9% IV 100 ML 200 ML IVPB (08:36)
[2025-10-13] MEDS: PANTOPRAZOLE SODIUM IV 40 MG VIAL IV PUSH ×2 (08:36→21:57)
[2025-10-13] MEDS: THIAMINE HCL 200 MG/2 ML VIAL 100 MG IV PUSH (08:36)
[2025-10-13] MEDS: MINERAL OIL/WHITE PETROLATUM OINTMENT 1 APPLIC EACH EYE (08:58)
--- NOTE | 2025-10-13 09:46 | P.PNINT_ITS ---
Assessment and Plan Assessment and Plan (1) Acute respiratory failure: Code(s): J96.00 - Acute respiratory failure, unspecified whether with hypoxia or hypercapnia Status: Acute Assessment and Plan: 10/04: Patient presented the ED via EMS with complains of generalized weakness, fevers, shortness of breath and fever. When EMS arrived to his house he was found on the ground, unable to get up off the floor. Patient's O2 sats were in the 80s on room air. Patient was placed on supplemental oxygen. In the ED patient was awake, alert, oriented was able to answer questions. O2 sats were improved but he was hypotensive, once he was given IV fluids per sepsis protocol he was more short of breath and was intubated -10/04: Intubated in the ER for impending respiratory failure likely related to CHF 10/12: Successfully extubated after being placed on SBT, RSBI and ABGs were all within acceptable limits. -continue BiPAP at night -speech has been consulted for swallow evaluation -PT/OT (2) Septic shock: Code(s): A41.9 - Sepsis, unspecified organism; R65.21 - Severe sepsis with septic shock Status: Acute Assessment and Plan: Patient with hypotension, likely related to pneumonia, possible lower abdomen cellulitis as seen on the CT scan. Could be related to heart failure -10/04: patient received 3.5 L IV fluid bolus in the ER, despite which his blood pressures remain low, is right-sided IJ central line was inserted, patient started on Levophed Off vasopressors now Overall volume overloaded hence off IV fluids -complete a course of cefepime, metronidazole, -completed a course azithromycin (10/04). vancomycin DISCONTINUED (10/07) -10/04: Blood cultures resulted on 10/11/2025, growing Streptococcus dysgalactiae 2/2 bottles -10/04: Urine cultures negative -10/04: sputum culture growing Pseudomonas and Staphylococcus aureus which was resulted on 10/09/2025 -10/04: Obtain urine Legionella and strep pneumo antigen, negative 10/11: Started patient on ceftriaxone for blood cultures being positive for Streptococcus dysgalactiae, 10/11: repeat blood cultures pending 01/16/2025: Echocardiogram Summary 1. Left ventricular chamber dimension is normal. 2. Left ventricular systolic function is normal, estimated at 65-70%. 3. There is mildly increased left ventricular wall thickness. 4. The left ventricular diastolic function is grade I diastolic dysfunction. 5. Right ventricular systolic function is normal. 6. Left atrial chamber dimension is moderately enlarged. 7. Right atrial chamber dimension is moderately enlarged. 8. There is moderate aortic valve calcification. 9. There is moderate to severe aortic valve stenosis with a peak velocity of407 cm/s, mean gradient of 43 mmHg, and aortic valve area of 1.2 cm2. 10. There is mild aortic valve regurgitation. 11. There is mild to moderate tricuspid valve regurgitation. 12. Pulmonary hypertension, estimated pulmonary arterial systolic pressure is 48 mmHg. (3) MARIO (acute kidney injury): Code(s): N17.9 - Acute kidney failure, unspecified Status: Acute Assessment and Plan: Acute kidney injury, creatinine 1.83 on admission, (1.87-2.19 in January of 2025, prior to that patient's creatinine was 1.10-1.20 in March of 2023) -patient received 3.5 L of IV fluid bolus in the ER and albumin. Off further IV fluids -10/08 patient was given Lasix over last 24 hours with improved urine output although creatinine continues to increase slightly to 4.39. Continue Lasix. Will discuss with Nephrology. May issue and may still need dialysis although no emergent indication for dialysis at this time. - Nephrology following. -continue to monitor renal function, electrolytes and urine output -10/05/2025: Renal ultrasound did not show any stones, masses or hydronephrosis. Showed splenomegaly, ascites -10/09: Nephrology following the patient, good urine output in response to diuresis, creatinine trending up, discussed with Nephrology, will continue to monitor for now, electrolytes are stable -10/10: Patient with adequate urine output in response to diuresis, creatinine trending up, and electrolytes still stable. Will give albumin and Bumex today since patient has history of cirrhosis 10/12: Continues to respond to diuresis, creatinine may have peaked, this morning trending down gradually. Continue to monitor. Nephrology following 10/13: Hold diuresis as patient hypernatremic (4) Acute CHF: Code(s): I50.9 - Heart failure, unspecified Status: Acute Assessment and Plan: Patient has history of CHF, he does take furosemide at home, echocardiogram as above Patient has been on diuresis antral 10/12 -10/13: will hold diuresis today since patient is hyponatremia -echo as above, diastolic heart failure (5) DM2 (diabetes mellitus, type 2): Code(s): E11.9 - Type 2 diabetes mellitus without complications Status: Chronic Assessment and Plan: Accu-Cheks and sliding scale insulin (6) Thrombocytopenia: Code(s): D69.6 - Thrombocytopenia, unspecified Status: Acute Assessment and Plan: Chronic thrombocytopenia could be related to cirrhosis, alcohol use -patient was evaluated by Oncology on 01/28/2023 -platelets low but stable. Continue to monitor, -will transfuse if needed (7) Cirrhosis: Code(s): K74.60 - Unspecified cirrhosis of liver Status: Acute Assessment and Plan: CT scan of the abdomen and pelvis showed spleen enlargement and cirrhosis -patient also has anasarca -elevated bilirubin -appreciate GI evaluation recommendation -continue lactulose for elevated ammonia, -10/09: Ammonia level at 30, continue lactulose which will also help with constipation -ammonia levels have normalized, lactulose currently on hold due to multiple e pisodes of bowel movement (8) Anasarca: Code(s): R60.1 - Generalized edema Status: Acute Assessment and Plan: Likely related to cirrhosis and congestive heart failure (9) GI bleed: Code(s): K92.2 - Gastrointestinal hemorrhage, unspecified Status: Acute Assessment and Plan: OG tube has blood draining, could be related to trauma secondary to OG tube placement or variceal bleed or gastritis as patient has cirrhosis -Protonix IV q.12 hours -appreciate GI evaluation, no more GI bleeding noted from the OG tube -patient does have cirrhosis, MELD score of 26 (10) Anemia: Code(s): D64.9 - Anemia, unspecified Status: Acute Assessment and Plan: Patient also has anemia with hemoglobin of 10.7 (which is close to his baseline) -will continue to monitor, hemoglobin has been stable, continue to monitor - transfuse for hemoglobin < 7.0 (11) Aortic stenosis: Code(s): I35.0 - Nonrheumatic aortic (valve) stenosis Status: Acute Assessment and Plan: Moderate to severe aortic valve stenosis with mean gradient of 43 mmHg and aortic valve area of 1.2 cm2 -off IV fluids -repeat echocardiogram as above (12) NSTEMI (non-ST elevated myocardial infarction): Code(s): I21.4 - Non-ST elevation (NSTEMI) myocardial infarction Status: Acute Assessment and Plan: 10/04: Troponins were 4.720, 8.720 and 13.00. -cardiology was consulted, recommended starting heparin infusion -10/05: Heparin infusion was discontinued as this was thought to be secondary to type 2 myocardial infarction secondary to anemia, hypotension, respiratory failure and septic shock. -appreciate cardiology evaluation recommendation, no intervention at this time Plan DVT prophylaxis: SCDs, no chemoprophylaxis due to thrombocytopenia, anemia, patient also had bloody drainage from his OG tube on admission which has cleared up Stress ulcer prophylaxis: Protonix IV q.12 hours Nutrition: Speech evaluation for bedside swallow Code Status: No intubation, okay for CPR Critical Care Time Spent: 31 minutes Discussed with patient's at length, updated with patient's condition and plan of care. I explained to her regarding placing patient on SBT and evaluating for extubation. I discussed at length regarding what if the patient fails after extubation, she does not want to be intubated., does not want him to get a tracheostomy or a PEG tube Due to a high probability of clinically significant, life threatening deteri oration, the patient required my highest level of preparedness to intervene emergently and I personally spent this critical care time directly and personally managing the patient. This critical care time included obtaining a history; examining the patient; pulse oximetry; ordering and review of studies; arranging urgent treatment with development of a management plan; evaluation of patient's response to treatment; frequent reassessment; and discussions with other providers. It was exclusive of separately billable procedures and treating other patients and teaching time. Please see Assessment and Plan section and the rest of the note for further information on patient assessment and treatment This dictation may have been done utilizing a voice recognition system. Attempts have been made to correct errors. However, there may be uncorrected grammatical, spelling, and recognitions errors present. Subjective Date/time seen: 10/13/25 09:46 Interval history: Reason for consult: Septic shock, pneumonia, pulmonary vascular congestion, colitis, acute kidney injury 10/12: Successfully extubated 10/13/2025: Patient seen and examined the ICU, is on 4 L nasal cannula with adequate O2 sats. Patient is awake, alert, follows simple commands. Patient has been having bowel movements. He did wear his BiPAP for 4 hours overnight. Urine output has been adequate. Patient has had bowel movement. Denies any chest pain, shortness of breath, abdominal pain, nausea, vomiting. Overnight patient pulled out his right IJ central line Review of Systems Review of Systems: All systems reviewed & are unremarkable except as noted in HPI and below Exam Narrative: General: Patient is calm, in no acute distress. Not intubated or on any sedation HEENT:? Pupils equal and reactive, sclera is icteric, Neck:? Thick neck, Respiratory:? Coarse breath sounds bilaterally, decreased at bases, no wheezing Cardiac:? S1-S2 is normal, regular rate and rhythm, 2/6 ejection systolic murmur in the aortic area Abdomen:? Soft, nontender, nondistended, obese, normoactive bowel sounds, thickening of the skin on the lower part of the abdomen Extremities:? Bilateral upper and lower extremity edematous, palpable pedal pulses Neuro:? opens his eyes, follows simple commands in all extremities, gives one- word answers to questions Skin:? Chronic venous stasis changes and chronic skin discoloration which is likely due to diabetes according the . Patient also has a callus on the ball of the right toe Psych:? Unable to assess at this time Objective Data Vital Signs Vital Signs: Vital Signs - 24 hr 10/12/25 10:00 10/12/25 10:00 10/12/25 10:00 Temperature 99.2 F Pulse Rate 97 96 100 Respiratory Rate 18 26 H Blood Pressure 95/64 L Pulse Oximetry Oxygen Delivery Oxygen Flow Rate Fraction of Inspired Oxygen 10/12/25 10:00 10/12/25 10:13 10/12/25 10:30 Temperature Pulse Rate 108 H 101 H Respiratory Rate 32 H Blood Pressure 100/60 Pulse Oximetry 95 Oxygen Delivery Oxygen Flow Rate Fraction of Inspired Oxygen 10/12/25 11:00 10/12/25 11:30 10/12/25 11:43 Temperature 99.1 F Pulse Rate 105 H 105 H 105 H Respiratory Rate 23 H 18 Blood Pressure 100/63 Pulse Oximetry 94 93 Oxygen Delivery Mechanical Ventilation Oxygen Flow Rate Fraction of Inspired Oxygen 30 10/12/25 12:00 10/12/25 12:00 10/12/25 12:00 Temperature 98.9 F Pulse Rate 103 H 106 H 104 H Respiratory Rate 22 H 20 Blood Pressure 99/75 L 99/75 L Pulse Oximetry 93 Oxygen Delivery Oxygen Flow Rate Fraction of Inspired Oxygen 10/12/25 12:00 10/12/25 12:00 10/12/25 12:00 Temperature Pulse Rate 103 H 105 H Respiratory Rate 20 Blood Pressure Pulse Oximetry 93 Oxygen Delivery Mechanical Ventilation Oxygen Flow Rate Fraction of Inspired Oxygen 30 30 10/12/25 13:00 10/12/25 13:08 10/12/25 14:00 Temperature 98.9 F 98.9 F Pulse Rate 105 H 105 H 106 H Respiratory Rate 20 24 H 27 H Blood Pressure 104/77 126/78 Pulse Oximetry 94 93 93 Oxygen Delivery Oxygen Flow Rate Fraction of Inspired Oxygen 10/12/25 14:00 10/12/25 14:00 10/12/25 14:00 Temperature Pulse Rate 102 H 102 H 101 H Respiratory Rate 22 H Blood Pressure 126/78 Pulse Oximetry Oxygen Delivery Oxygen Flow Rate Fraction of Inspired Oxygen 10/12/25 14:22 10/12/25 14:30 10/12/25 14:31 Temperature Pulse Rate 107 H 104 H 102 H Respiratory Rate 23 H 22 H 25 H Blood Pressure 110/72 Pulse Oximetry 93 99 94 Oxygen Delivery Oxygen Flow Rate Fraction of Inspired Oxygen 10/12/25 14:40 10/12/25 14:45 10/12/25 14:46 Temperature Pulse Rate 110 H 106 H 115 H Respiratory Rate 23 H 24 H 23 H Blood Pressure Pulse Oximetry 95 Oxygen Delivery Oxygen Flow Rate Fraction of Inspired Oxygen 10/12/25 15:00 10/12/25 15:00 10/12/25 15:01 Temperature 98.8 F 98.8 F Pulse Rate 105 H 106 H 106 H Respiratory Rate 24 H 25 H 23 H Blood Pressure 100/64 100/64 Pulse Oximetry 94 93 93 Oxygen Delivery Oxygen Flow Rate Fraction of Inspired Oxygen 10/12/25 15:03 10/12/25 15:15 10/12/25 15:30 Temperature 98.7 F 98.6 F Pulse Rate 106 H 106 H Respiratory Rate 24 H 22 H 26 H Blood Pressure 105/52 L Pulse Oximetry 92 92 88 L Oxygen Delivery High Flow Nasal Cannula Oxygen Flow Rate 8 Fraction of Inspired Oxygen 10/12/25 15:31 10/12/25 15:40 10/12/25 15:45 Temperature 98.6 F 98.6 F Pulse Rate 107 H 107 H 106 H Respiratory Rate 25 H 24 H Blood Pressure 105/52 L Pulse Oximetry 84 L 98 Oxygen Delivery Oxygen Flow Rate Fraction of Inspired Oxygen 10/12/25 16:00 10/12/25 16:00 10/12/25 16:00 Temperature 98.5 F Pulse Rate 106 H 106 H 105 H Respiratory Rate 24 H 24 H Blood Pressure 98/58 L Pulse Oximetry 97 98 Oxygen Delivery High Flow Nasal Cannula Oxygen Flow Rate 7 Fraction of Inspired Oxygen 10/12/25 16:00 10/12/25 16:00 10/12/25 16:01 Temperature 98.5 F 98.5 F Pulse Rate 107 H 106 H 106 H Respiratory Rate 26 H 23 H 24 H Blood Pressure 98/58 L Pulse Oximetry 98 99 Oxygen Delivery Oxygen Flow Rate Fraction of Inspired Oxygen 10/12/25 16:15 10/12/25 16:30 10/12/25 16:31 Temperature 98.5 F 98.5 F 98.5 F Pulse Rate 106 H 105 H 106 H Respiratory Rate 26 H 24 H 23 H Blood Pressure 102/57 L Pulse Oximetry 98 95 97 Oxygen Delivery Oxygen Flow Rate Fraction of Inspired Oxygen 10/12/25 16:45 10/12/25 17:00 10/12/25 17:00 Temperature 98.5 F 98.4 F Pulse Rate 106 H 106 H Respiratory Rate 22 H 23 H Blood Pressure 99/60 L Pulse Oximetry 98 97 96 Oxygen Delivery High Flow Nasal Cannula Oxygen Flow Rate 4 Fraction of Inspired Oxygen 10/12/25 17:00 10/12/25 17:01 10/12/25 17:15 Temperature 98.4 F 98.4 F 98.4 F Pulse Rate 106 H 106 H 105 H Respiratory Rate 24 H 22 H 23 H Blood Pressure 100/47 L Pulse Oximetry 96 98 97 Oxygen Delivery Oxygen Flow Rate Fraction of Inspired Oxygen 10/12/25 17:30 10/12/25 17:31 10/12/25 17:45 Temperature 98.4 F 98.4 F 98.4 F Pulse Rate 105 H 105 H 105 H Respiratory Rate 23 H 25 H 24 H Blood Pressure 99/60 L Pulse Oximetry 96 100 94 Oxygen Delivery Oxygen Flow Rate Fraction of Inspired Oxygen 10/12/25 18:00 10/12/25 18:00 10/12/25 18:00 Temperature 98.4 F 98.4 F Pulse Rate 107 H 107 H 106 H Respiratory Rate 22 H 26 H Blood Pressure 102/63 102/63 Pulse Oximetry 100 99 Oxygen Delivery Oxygen Flow Rate Fraction of Inspired Oxygen 10/12/25 18:01 10/12/25 18:15 10/12/25 18:30 Temperature 98.4 F 98.4 F 98.4 F Pulse Rate 107 H 107 H 109 H Respiratory Rate 24 H 25 H 28 H Blood Pressure 107/65 Pulse Oximetry 96 100 91 Oxygen Delivery Oxygen Flow Rate Fraction of Inspired Oxygen 10/12/25 18:31 10/12/25 18:45 10/12/25 19:00 Temperature 98.4 F 98.4 F 98.4 F Pulse Rate 107 H 107 H 102 H Respiratory Rate 26 H 29 H 25 H Blood Pressure 111/67 Pulse Oximetry 94 91 89 L Oxygen Delivery Oxygen Flow Rate Fraction of Inspired Oxygen 10/12/25 19:01 10/12/25 19:15 10/12/25 19:30 Temperature 98.5 F 98.5 F 98.5 F Pulse Rate 107 H 109 H 108 H Respiratory Rate 27 H 26 H 25 H Blood Pressure 112/65 Pulse Oximetry 89 L 93 100 Oxygen Delivery Oxygen Flow Rate Fraction of Inspired Oxygen 10/12/25 19:31 10/12/25 19:45 10/12/25 20:00 Temperature 98.5 F 98.6 F Pulse Rate 108 H 109 H Respiratory Rate 27 H 27 H Blood Pressure Pulse Oximetry 100 96 Oxygen Delivery High Flow Nasal Cannula Oxygen Flow Rate 4 Fraction of Inspired Oxygen 10/12/25 20:00 10/12/25 20:00 10/12/25 20:00 Temperature 98.6 F 98.6 F Pulse Rate 108 H 109 H 108 H Respiratory Rate 27 H 26 H Blood Pressure 106/65 106/65 Pulse Oximetry 96 96 Oxygen Delivery Oxygen Flow Rate Fraction of Inspired Oxygen 10/12/25 20:01 10/12/25 20:09 10/12/25 20:15 Temperature 98.6 F 98.7 F Pulse Rate 106 H 108 H 108 H Respiratory Rate 26 H 28 H 24 H Blood Pressure Pulse Oximetry 95 98 Oxygen Delivery Oxygen Flow Rate Fraction of Inspired Oxygen 10/12/25 20:23 10/12/25 20:30 10/12/25 20:31 Temperature 98.7 F 98.7 F Pulse Rate 112 H 108 H 108 H Respiratory Rate 28 H 29 H 21 H Blood Pressure 106/72 Pulse Oximetry 95 95 Oxygen Delivery Oxygen Flow Rate Fraction of Inspired Oxygen 10/12/25 20:45 10/12/25 21:00 10/12/25 21:01 Temperature 98.7 F 98.7 F 98.7 F Pulse Rate 102 H 109 H 109 H Respiratory Rate 25 H 24 H 25 H Blood Pressure 111/53 L Pulse Oximetry 96 95 95 Oxygen Delivery Oxygen Flow Rate Fraction of Inspired Oxygen 10/12/25 22:00 10/12/25 23:00 10/12/25 23:34 Temperature 98.4 F 98.3 F Pulse Rate 109 H 106 H 109 H Respiratory Rate 24 H 20 13 Blood Pressure 105/63 107/59 L Pulse Oximetry 96 99 97 Oxygen Delivery BiPAP Oxygen Flow Rate Fraction of Inspired Oxygen 10/13/25 00:00 10/13/25 00:00 10/13/25 00:00 Temperature 98.1 F Pulse Rate 108 H 110 H Respiratory Rate 22 H Blood Pressure 107/76 Pulse Oximetry 95 96 Oxygen Delivery BiPAP Oxygen Flow Rate Fraction of Inspired Oxygen 30 10/13/25 01:00 10/13/25 02:00 10/13/25 02:00 Temperature 98.1 F 98.2 F Pulse Rate 110 H 110 H 109 H Respiratory Rate 21 H 25 H Blood Pressure 119/63 110/68 Pulse Oximetry 91 94 Oxygen Delivery Oxygen Flow Rate Fraction of Inspired Oxygen 10/13/25 03:00 10/13/25 04:00 10/13/25 04:00 Temperature 98.3 F 98.3 F Pulse Rate 103 H 105 H Respiratory Rate 24 H 24 H Blood Pressure 110/69 120/79 Pulse Oximetry 96 90 92 Oxygen Delivery Nasal Cannula Oxygen Flow Rate 4 Fraction of Inspired Oxygen 10/13/25 04:00 10/13/25 05:00 10/13/25 06:00 Temperature 98.2 F 98.1 F Pulse Rate 110 H 113 H 110 H Respiratory Rate 24 H 25 H Blood Pressure 116/72 116/81 Pulse Oximetry 92 94 Oxygen Delivery Oxygen Flow Rate Fraction of Inspired Oxygen 10/13/25 07:00 10/13/25 07:50 10/13/25 07:50 Temperature 97.2 F L Pulse Rate 115 H 112 H 110 H Respiratory Rate 26 H 24 H 24 H Blood Pressure 103/76 Pulse Oximetry 93 97 Oxygen Delivery High Flow Nasal Cannula Oxygen Flow Rate 4 Fraction of Inspired Oxygen 36 10/13/25 07:55 10/13/25 08:00 10/13/25 08:05 Temperature Pulse Rate 113 H 109 H 109 H Respiratory Rate 24 H 24 H 24 H Blood Pressure Pulse Oximetry 88 L 93 Oxygen Delivery High Flow Nasal Cannula High Flow Nasal Cannula Oxygen Flow Rate 2 4 Fraction of Inspired Oxygen 28 36 Intake/Output Intake/Output: Intake & Output 10/10/25 10/11/25 10/12/25 10/13/25 23:59 23:59 23:59 23:59 Intake Total 900 1906 819.9 0 Output Total 500 1130 850 230 Balance 400 776 -30.1 -230 Meds/Results Medications: Active Medications Generic Name Dose Route Start Last Admin Trade Name Freq PRN Reason Stop Dose Admin Aspirin 81 mg 10/04/25 17:50 10/12/25 08:44 Aspirin 81 Mg Chewable Tablet PO 81 mg DAILY@0800 VIKA Administration Dextrose 12.5 gm 10/04/25 13:16 Dextrose 50% 25 Gm/50 Ml Syringe IV PUSH PRN PRN Hypoglycemia Protocol Dornase [place] 2.5 mg 10/09/25 10:40 10/13/25 07:53 Dornase [place] Inh Soln 1 Mg/Ml 2.5 Ml Amp INHALATION 2.5 mg Q12HRT VIKA Administration Glucagon 1 mg 10/04/25 13:16 Glucagon For Inj 1 Mg Vial IM PRN PRN Hypoglycemia Protocol Glucose 15 gm 10/04/25 13:16 Glucose Oral Gel 15 Gm Of Glucse In 37.5 Gm Tube PO PRN PRN Hypoglycemia Protocol Dextrose 1,000 mls @ 100 mls/hr 10/04/25 13:16 Dextrose 5% 1,000 Ml IVPB PRN PRN Hypoglycemia Protocol Ceftriaxone Sodium 2 gm/ 100 mls @ 200 mls/hr 10/11/25 08:45 10/13/25 08:36 Sodium Chloride IVPB 200 mls/hr DAILY VIKA Administration Phenylephrine HCl 50 mg/ 250 mls @ 0 mls/hr 10/11/25 18:25 10/12/25 15:40 Sodium Chloride IV CONT Infused .Q0M VIKA Titration Protocol 0 MCG/MIN Insulin Aspart 3 - 6 units 10/04/25 18:00 10/13/25 04:36 Insulin Aspart (*Bkc) 100 Units/Ml SUB-Q Not Given Q6HR [facility] Protocol Ipratropium [place] 0.5 mg 10/07/25 07:43 10/12/25 20:10 Ipratropium Br 0.02% Inh Soln 0.5 Mg/2.5 Ml Vial INHALATION 0.5 mg Q6HRT PRN Administration Wheezing Lactulose 20 gm 10/11/25 09:00 10/12/25 08:44 Lactulose 20 Gm/30 Ml Udc FEED TUBE 20 gm DAILY VIKA Administration Levalbuterol HCl 0.63 mg 10/07/25 07:44 10/13/25 07:41 Levalbuterol Neb 1.25 Mg/3 Ml INHALATION 0.63 mg Q6HRT PRN Administration Wheezing Miscellaneous Information 0 each 10/11/25 00:01 Please Renew Dornase. Per [employer] Procedure, It Will Discontinue If Not Renewed XX 11/10/25 00:00 CLARIFY VIKA Multi-Ingred Cream/Lotion/Oil/Oint 1 applic 10/07/25 09:00 10/13/25 08:58 Mineral Oil/White Petrolatum Ointment EACH EYE 1 applic Q12HR VIKA Administration Ondansetron HCl 4 mg 10/13/25 03:50 Ondansetron Inj 4 Mg/2 Ml Vial IV PUSH Q4H PRN Nausea And Vomiting Pantoprazole Sodium 40 mg 10/04/25 21:00 10/13/25 08:36 Pantoprazole Sodium Iv 40 Mg Vial IV PUSH 40 mg Q12HR VIKA Administration Sodium Chloride 10 ml 10/04/25 14:00 10/13/25 04:36 Central Line Flush IV PUSH 10 ml Q8HR VIKA Administration Sodium Chloride 20 ml 10/04/25 09:27 10/09/25 06:04 Central Line Flush IV PUSH 20 ml PRN PRN Administration after blood draws Thiamine HCl 100 mg 10/05/25 09:00 10/13/25 08:36 Thiamine Hcl 200 Mg/2 Ml Vial IV PUSH 100 mg QAM VIKA Administration Radiology Results: ITS Impressions Head CT 10/04/25 07:09 IMPRESSION: 1. No acute intracranial findings. Chest/Abdomen/Pelvis CT 10/04/25 07:26 IMPRESSION: CHEST- 1. Interstitial pulmonary edema and small right pleural effusion. 2. Superimposed pneumonitis or interstitial lung disease not excluded. ABDOMEN/PELVIS- 1. Colonic hepatic flexure wall thickening. Colitis and/or malignancy. 2. Additional findings as above. Renal Ultrasound 10/05/25 13:44 Impression: 1: Unremarkable renal ultrasound. No stones, masses or hydronephrosis. 2: Splenomegaly. 3: Ascites. Chest X-Ray 10/13/25 09:40 IMPRESSION: 1. Worsening pulmonary edema and/or multifocal airspace disease. 2. Persistent significant bibasilar atelectasis and/or airspace disease. 3. Pleural effusions not excluded. Labs Labs: Laboratory Results - last 24 hr 10/12/25 10/12/25 10/12/25 11:48 14:22 17:30 WBC RBC Hgb Hct MCV MCH MCHC RDW Plt Count MPV Immature Gran % (Auto) Neut % (Auto) Lymph % (Auto) [place] % (Auto) Eos % (Auto) Baso % (Auto) Lymph # (Auto) [place] # (Auto) Eos # (Auto) Baso # (Auto) Abs Immat Gran (auto) Absolute Neuts (auto) Absolute Nucleated RBC Band Neutrophils % Nucleated RBC % Platelet Estimate % Immature Plt Fraction Polychromasia Hypochromasia Anisocytosis Tear Drop Cells Schistocytes Puncture Site Left radial ABG pH 7.365 ABG pCO2 36.6 ABG pO2 68.2 L ABG PO2/FiO2 Ratio 2.27 ABG HCO3 20.4 L ABG O2 Saturation 93.2 L ABG O2 Content 11.1 L ABG Base Excess -4.4 A-a Gradient 102.7 Oxyhemoglobin 90.9 Carboxyhemoglobin 1.3 Methemoglobin 0.0 Reduced Hemoglobin 7.8 H Total Hemoglobin 8.6 L O2 Delivery Device Ventilator O2 Liters/Min Not Reportable Minute Volume Not Reportable Vent Rate Not Reportable Vent Mode Spontaneous FiO2 30 Tidal Volume Not Reportable PEEP 5 Peak Inspir Pressure Not Reportable Pressure Support 8 Sodium Potassium Chloride Carbon Dioxide Anion Gap BUN Creatinine Estim Creat Clear Calc Estimated GFR Glucose POC Capillary Glucose 205 H 187 H Calcium Phosphorus Magnesium Total Bilirubin AST ALT Alkaline Phosphatase Ammonia Total Protein Albumin 10/13/25 10/13/25 10/13/25 02:41 03:56 03:57 WBC 6.2 RBC 2.21 L Hgb 7.6 L Hct 24.9 L MCV 112.7 H MCH 34.4 H MCHC 30.5 L RDW 16.2 H Plt Count 54 L MPV 10.8 H Immature Gran % (Auto) 1.9 H Neut % (Auto) 67.0 Lymph % (Auto) 16.3 L [place] % (Auto) 10.3 H Eos % (Auto) 3.7 Baso % (Auto) 0.8 Lymph # (Auto) 1.01 [place] # (Auto) 0.6 Eos # (Auto) 0.2 Baso # (Auto) 0.1 Abs Immat Gran (auto) 0.12 H Absolute Neuts (auto) 4.2 Absolute Nucleated RBC 0.020 H Band Neutrophils % Not Reportable Nucleated RBC % 0.3 H Platelet Estimate Decreased % Immature Plt Fraction 2.6 Polychromasia Occasional Hypochromasia 1+ Anisocytosis 1+ Tear Drop Cells 1+ Schistocytes None seen Puncture Site Left radial ABG pH 7.335 L ABG pCO2 43.2 ABG pO2 98.1 ABG PO2/FiO2 Ratio 1.89 ABG HCO3 22.5 ABG O2 Saturation 97.1 ABG O2 Content 11.7 L ABG Base Excess -3.1 A-a Gradient 224.3 Oxyhemoglobin 95.3 Carboxyhemoglobin 1.4 Methemoglobin 0.1 Reduced Hemoglobin 3.2 Total Hemoglobin 8.6 L O2 Delivery Device High flow nasal landon O2 Liters/Min 8.0 Minute Volume Vent Rate Vent Mode FiO2 52 Tidal Volume PEEP Peak Inspir Pressure Pressure Support Sodium 149 H Potassium 3.9 Chloride 116 H Carbon Dioxide 21 L Anion Gap 12 BUN 105 H* D Creatinine 4.68 H Estim Creat Clear Calc 25 Estimated GFR 13 L Glucose 160 H POC Capillary Glucose Calcium 9.8 Phosphorus 5.5 H Magnesium 2.5 H Total Bilirubin 5.4 H AST 52 ALT 21 Alkaline Phosphatase 77 Ammonia 18 Total Protein 8.8 H Albumin 4.3 Quality VTE Prophylaxis VTE prophylaxis: mechanical ordered
--- NOTE | 2025-10-13 10:57 | P.PNNP_ITS ---
Progress Note: A&P Assessment and Plan (1) Acute kidney injury: Code(s): N17.9 - Acute kidney failure, unspecified Status: Acute Assessment and Plan: * as noted by labs on 10/05 (creatinine up to 2.87mg/dL) * admission creatinine at baseline * complicated by diminished urine output and volume overload * however, somewhat responsive to diuretics * suspect multifactorial etiology: * hemodynamic instability/shock * infection/sepsis * hypoxia * cocaine use * CHF * rhabdomyolysis * NSTEMI * pre renal factors * other(?) * evaluation to date noted: * renal ultrasound shows normal kidneys * CK was elevated but trending down (although was high enough to cause damage to the kidneys) * UA shows blood protein and red cells * urine electrolytes (FeNA & FeUrea) reflect a pre renal state * urine eosinophils negative * moderate proteinuria * IV diuretics PRN * still remains at risk for [employer]/dialysis * however, no urgent need at this time * follow trend of repeat labs and UOP (2) Stage 3b chronic kidney disease: Code(s): N18.32 - Chronic kidney disease, stage 3b Status: Chronic Assessment and Plan: * creatinine 1.87mg/dL ~ 8 months ago on hospital discharge * was fluctuating 1.8 - 2.2mg/dL in the context of IV diuresis in January 2025 * prior to that, creatinine was ~ 1.1 - 1.2 in March of 2023 * presumably due to combination of diuretic use for CHF, diabetes, and hypertension +/- vascular disease (3) Septic shock: Code(s): A41.9 - Sepsis, unspecified organism; R65.21 - Severe sepsis with septic shock Status: Acute Assessment and Plan: * presented with hypotension unresponsive to IVF resuscitation * s/p 3.5L IVFs with no improvement in blood pressure * s/p RIJ central line placement and initiation of vasopressor therapy * suspected source include pneumonia, lower abdominal wall cellulitis, and/or heart failure * follow culture data (blood, sputum, and urine) * 10/04 sputum culture with Pseudomonas and Staph aureus * 10/04 blood cultures with Streptococcus dysgalactiae * lactic acid has normalized * weaned off vasopressor therapy * on antibiotics (4) Acute respiratory failure: Code(s): J96.00 - Acute respiratory failure, unspecified whether with hypoxia or hypercapnia Status: Acute Assessment and Plan: * extubated on 10/12 * intubated in ER for impending respiratory failure * noted hypoxia * worsening SOB with IVF resuscitation * decline in respiratory status felt to be secondary to CHF +/- pneumonia * on bronchodilator therapy * follow respiratory status (5) Acute CHF: Code(s): I50.9 - Heart failure, unspecified Status: Acute Assessment and Plan: * known history * admission CXR with pulmonary vascular congestion * last Echo (01/16/25) noted: * left ventricular systolic function is normal, estimated at 65 - 70% * left ventricular diastolic function is grade I diastolic dysfunction * moderate to severe aortic valve stenosis with a peak velocity of 407 cm/s, mean gradient of 43 mmHg, and aortic valve area of 1.2 cm2 * mild aortic valve regurgitation * mild to moderate tricuspid valve regurgitation * pulmonary hypertension, estimated pulmonary arterial systolic pressure is 48 mmHg * repeat Echo (10/05/25) reviewed: * left ventricular systolic function is normal, estimated at 55 - 60% * left ventricular diastolic function is abnormal * severe aortic valve stenosis with a peak velocity of 435 cm/s, mean gradient of 43 mmHg, and aortic valve area of 0.9 cm2 * mild to moderate aortic valve regurgitation * mild mitral valve regurgitation * mild to moderate tricuspid valve regurgitation * moderate pulmonary hypertension, estimated pulmonary arterial systolic pressure is 56 mmHg * trace pulmonic regurgitation * with better hemodynamics, on IV diuretics PRN * follow I/Os, daily weights, and respiratory status * Cardiology following (6) Anasarca: Code(s): R60.1 - Generalized edema Status: Acute Assessment and Plan: * likely a combination of CHF , MARIO, and liver cirrhosis/hypoalbuminemia * Echo as noted (see #5) * ongoing diuresis given better hemodynamics (7) Cirrhosis: Code(s): K74.60 - Unspecified cirrhosis of liver Status: Acute Assessment and Plan: * as noted by CT imaging: * noted spleen enlargement and cirrhosis * also with anasarca * trend bilirubin and LFTs * on lactulose (ammonia level has normalized) * GI following (8) Anemia: Code(s): D64.9 - Anemia, unspecified Status: Acute Assessment and Plan: * as noted * concern for GI loss given bleeding noted from OG tube * this appears to have resolved * suspect related to MARIO, CKD, and liver disease/cirrhosis * PRBC transfusion per protocol * consider PATRICIA given #1 and #2 (9) Thrombocytopenia: Code(s): D69.6 - Thrombocytopenia, unspecified Status: Acute Assessment and Plan: * chronic issue * saw Heme/Onc in the past and this is felt to be related to cirrhosis and alcohol use * platelet transfusion PRN (10) DM2 (diabetes mellitus, type 2): Code(s): E11.9 - Type 2 diabetes mellitus without complications Status: Chronic Assessment and Plan: * follow accu-cheks * glycemic control per emt i/99/hospitalist Will continue to follow. L Subjective Date/time seen: 10/13/25 10:57 Interval history: Follow-up for acute kidney injury/acute renal failure on chronic kidney disease. Successfully extubated yesterday without any issues or problems -- remains on 4L oxygen by nasal cannula; responsive to diuretic therapy but at the expense of renal function/creatinine as noted by trend of labs; noted positive blood culture results with antibiotic therapy adjusted; no apparent distress noted. Exam 2 Narrative: General: WD/WN male intubated on mechanical ventilation Heart: normal S1 and S2; no rub Lungs: coarse breath sounds Abdomen: soft, nontender, nondistended, positive bowel sounds Extremities: no cyanosis or clubbing; 1+ edema Skin: chronic venous stasis/skin changes present Objective Data Vital Signs Vital Signs: Vital Signs Temp Pulse Resp BP Pulse Ox O2 Del Method O2 Flow Rate 10/13/25 10:52 Nasal Cannula 4 10/13/25 10:31 104 H 27 H 118/75 95 10/13/25 10:21 112 H 27 H 127/73 98 10/13/25 10:00 108 H 28 H 97 10/13/25 10:00 106 H 10/13/25 09:00 105 H 27 H 95 10/13/25 08:05 109 H 24 H 93 High Flow Nasal Cannula 4 10/13/25 08:03 110 H 28 H 93/70 L 99 10/13/25 08:00 97.8 F 111 H 29 H 97 10/13/25 08:00 98 Nasal Cannula 4 10/13/25 08:00 110 H 10/13/25 08:00 109 H 24 H 10/13/25 07:55 113 H 24 H 88 L High Flow Nasal Cannula 2 10/13/25 07:50 110 H 24 H 97 High Flow Nasal Cannula 4 10/13/25 07:50 112 H 24 H 10/13/25 07:00 97.2 F L 115 H 26 H 103/76 93 10/13/25 06:00 98.1 F 110 H 25 H 116/81 94 10/13/25 05:00 98.2 F 113 H 24 H 116/72 92 10/13/25 04:00 110 H 10/13/25 04:00 92 Nasal Cannula 4 10/13/25 04:00 98.3 F 105 H 24 H 120/79 90 10/13/25 03:00 98.3 F 103 H 24 H 110/69 96 10/13/25 02:00 109 H 10/13/25 02:00 98.2 F 110 H 25 H 110/68 94 10/13/25 01:00 98.1 F 110 H 21 H 119/63 91 10/13/25 00:00 110 H 10/13/25 00:00 98.1 F 108 H 22 H 107/76 96 10/13/25 00:00 95 BiPAP 10/12/25 23:34 109 H 13 97 BiPAP 10/12/25 23:00 98.3 F 106 H 20 107/59 L 99 10/12/25 22:00 98.4 F 109 H 24 H 105/63 96 10/12/25 21:01 98.7 F 109 H 25 H 95 10/12/25 21:00 98.7 F 109 H 24 H 111/53 L 95 10/12/25 20:45 98.7 F 102 H 25 H 96 10/12/25 20:31 98.7 F 108 H 21 H 95 10/12/25 20:30 98.7 F 108 H 29 H 106/72 95 10/12/25 20:23 112 H 28 H 10/12/25 20:15 98.7 F 108 H 24 H 98 10/12/25 20:09 108 H 28 H 10/12/25 20:01 98.6 F 106 H 26 H 95 10/12/25 20:00 98.6 F 108 H 26 H 106/65 96 10/12/25 20:00 109 H 10/12/25 20:00 98.6 F 108 H 27 H 106/65 96 10/12/25 20:00 96 High Flow Nasal Cannula 4 10/12/25 19:45 98.6 F 109 H 27 H 10/12/25 19:31 98.5 F 108 H 27 H 100 10/12/25 19:30 98.5 F 108 H 25 H 112/65 100 10/12/25 19:15 98.5 F 109 H 26 H 93 10/12/25 19:01 98.5 F 107 H 27 H 89 L 10/12/25 19:00 98.4 F 102 H 25 H 111/67 89 L 10/12/25 18:45 98.4 F 107 H 29 H 91 10/12/25 18:31 98.4 F 107 H 26 H 94 10/12/25 18:30 98.4 F 109 H 28 H 107/65 91 Intake/Output Intake/Output: Intake & Output 10/10/25 10/11/25 10/12/25 10/13/25 23:59 23:59 23:59 23:59 Intake Total 900 1906 819.9 151 Output Total 500 1130 850 230 Balance 400 776 -30.1 -79 Meds/Results Medications: Active Medications Generic Name Dose Route Start Last Admin Trade Name Freq PRN Reason Stop Dose Admin Aspirin 81 mg 10/04/25 17:50 10/13/25 11:08 Aspirin 81 Mg Chewable Tablet PO Not Given DAILY@0800 VIKA Dextrose 12.5 gm 10/04/25 13:16 Dextrose 50% 25 Gm/50 Ml Syringe IV PUSH PRN PRN Hypoglycemia Protocol Glucagon 1 mg 10/04/25 13:16 Glucagon For Inj 1 Mg Vial IM PRN PRN Hypoglycemia Protocol Glucose 15 gm 10/04/25 13:16 Glucose Oral Gel 15 Gm Of Glucse In 37.5 Gm Tube PO PRN PRN Hypoglycemia Protocol Dextrose 1,000 mls @ 100 mls/hr 10/04/25 13:16 Dextrose 5% 1,000 Ml IVPB PRN PRN Hypoglycemia Protocol Ceftriaxone Sodium 2 gm/ 100 mls @ 200 mls/hr 10/11/25 08:45 10/13/25 09:06 Sodium Chloride IVPB Infused DAILY VIKA Infusion Insulin Aspart 3 - 6 units 10/04/25 18:00 10/13/25 18:08 Insulin Aspart (*Bkc) 100 Units/Ml SUB-Q Not Given Q6HR [facility] Protocol Ipratropium [place] 0.5 mg 10/07/25 07:43 10/12/25 20:10 Ipratropium Br 0.02% Inh Soln 0.5 Mg/2.5 Ml Vial INHALATION 0.5 mg Q6HRT PRN Administration Wheezing Lactulose 20 gm 10/11/25 09:00 10/13/25 11:08 Lactulose 20 Gm/30 Ml Udc FEED TUBE Not Given DAILY VIKA Levalbuterol HCl 0.63 mg 10/07/25 07:44 10/13/25 07:41 Levalbuterol Neb 1.25 Mg/3 Ml INHALATION 0.63 mg Q6HRT PRN Administration Wheezing Miscellaneous Information 0 each 10/11/25 00:01 Please Renew Dornase. Per [employer] Procedure, It Will Discontinue If Not Renewed XX 11/10/25 00:00 CLARIFY VIKA Multi-Ingred Cream/Lotion/Oil/Oint 1 applic 10/07/25 09:00 10/13/25 08:58 Mineral Oil/White Petrolatum Ointment EACH EYE 1 applic Q12HR VIKA Administration Ondansetron HCl 4 mg 10/13/25 03:50 Ondansetron Inj 4 Mg/2 Ml Vial IV PUSH Q4H PRN Nausea And Vomiting Pantoprazole Sodium 40 mg 10/04/25 21:00 10/13/25 08:36 Pantoprazole Sodium Iv 40 Mg Vial IV PUSH 40 mg Q12HR VIKA Administration Thiamine HCl 100 mg 10/05/25 09:00 10/13/25 08:36 Thiamine Hcl 200 Mg/2 Ml Vial IV PUSH 100 mg QAM VIKA Administration Radiology Results: ITS Impressions Head CT 10/04/25 07:09 IMPRESSION: 1. No acute intracranial findings. Chest/Abdomen/Pelvis CT 10/04/25 07:26 IMPRESSION: CHEST- 1. Interstitial pulmonary edema and small right pleural effusion. 2. Superimposed pneumonitis or interstitial lung disease not excluded. ABDOMEN/PELVIS- 1. Colonic hepatic flexure wall thickening. Colitis and/or malignancy. 2. Additional findings as above. Renal Ultrasound 10/05/25 13:44 Impression: 1: Unremarkable renal ultrasound. No stones, masses or hydronephrosis. 2: Splenomegaly. 3: Ascites. Chest X-Ray 10/13/25 09:40 IMPRESSION: 1. Worsening pulmonary edema and/or multifocal airspace disease. 2. Persistent significant bibasilar atelectasis and/or airspace disease. 3. Pleural effusions not excluded. Labs Labs: Laboratory Tests 10/13/25 03:57 10/13/25 03:57 Calcium 9.8 Phosphorus 5.5 H Magnesium 2.5 H Total Bilirubin 5.4 H AST 52 ALT 21 Alkaline Phosphatase 77 Total Protein 8.8 H Albumin 4.3
--- NOTE | 2025-10-13 11:11 | PCSTNOTE ---
Bedside swallow evaluation attempted this morning- 10/13/25 as pt. was extubated 10/12/25. Pt. participatory but expectorating phlegm throughout evaluation attempt. Per discussion with pt., pt.'s , attending nursing staff and Dr. Mcknight, pt. is allowed controlled thin liquids via spoon. Will re-attempt bedside swallow evaluation on 10/14/25.
--- NOTE | 2025-10-13 12:03 | PM.PNCARD ---
Progress Note: A&P Assessment and Plan (1) Elevated troponin: Code(s): R79.89 - Other specified abnormal findings of blood chemistry Status: Acute (2) Aortic stenosis: Code(s): I35.0 - Nonrheumatic aortic (valve) stenosis Status: Acute (3) Acute CHF: Code(s): I50.9 - Heart failure, unspecified Status: Acute Plan persistent a flutter with RVR Acute on Chronic diastolic heart failure; LVEF 55-60% Elevated troponin of 4.720, 8.720, 13.00 without chest pain-most likely secondary to above; underlying CAD is also on the differential Severe aortic stenosis-aortic valve area 0.9 cm2 and mean gradient 43 mm Hg Moderate pulmonary hypertension with PASP of 56 mm Hg S/p Extubation Sepsis-on IV antibiotics Thrombocytopenia and Anemia MARIO on CKD Altered mental status-could be multifactorial given severe MARIO, substance abuse, acute hypoxic respiratory failure, sepsis Substance abuse-cocaine and cannabis Plan: Hold diuresis today and f/u kidney function No AC at this time as one time episode of afib, patient with anemia, thrombocytopenia and hematuria. Will monitor for recurrence Work up for CAD and aortic valve stenosis when recovers from infection Subjective Date/time seen: 10/13/25 12:03 Interval history: seen for A flutter Tele: A flutter and RVR No acute events Review of Systems Review of Systems: ROS unobtainable: Yes unobtainable due to mental status Exam Narrative: General: extubated but still not fully conscious Neck: Supple, unable to assess JVD Chest: Bilaterally clear to auscultation, no rales or rhonchi Cardiac: S1, S2 +, tachy rate, regular rhythm, systolic murmur Extremities: Bilateral lower extremity edema 1+, no skin rash Neurologic: movign extremitis and no eviudence of focal deficit Const: Other: Morbidly obese intubated chronically ill-appearing white male HENMT: Mouth: Yes moist mucous membranes Eyes: Sclera: sclerae normal Neck: Other: Patient has very thick neck no ability to discern venous distention carotid pulses are grossly intact bilateral Resp: Other: Breath sounds are grossly clear anterior Cardio: Rate: regular rate Rhythm: regular rhythm Other: Low pitched grade 2/6 crescendo decrescendo murmur is audible at the base GI: Auscultation: normal bowel sounds Urinary Catheter: Urinary Catheter: patent and draining Skin: General skin exam: normal color Neuro: Other: Intubated/sedated Extrem: Other: Chronically edematous changes of venous insufficiency Objective Data Vital Signs Vital Signs: Vital Signs - 24 hr 10/12/25 13:00 10/12/25 13:08 10/12/25 14:00 Temperature 37.2 C 37.2 C Pulse Rate 105 H 105 H 106 H Respiratory Rate 20 24 H 27 H Blood Pressure 104/77 126/78 Pulse Oximetry 94 93 93 Oxygen Delivery Oxygen Flow Rate Fraction of Inspired Oxygen 10/12/25 14:00 10/12/25 14:00 10/12/25 14:00 Temperature Pulse Rate 102 H 102 H 101 H Respiratory Rate 22 H Blood Pressure 126/78 Pulse Oximetry Oxygen Delivery Oxygen Flow Rate Fraction of Inspired Oxygen 10/12/25 14:22 10/12/25 14:30 10/12/25 14:31 Temperature Pulse Rate 107 H 104 H 102 H Respiratory Rate 23 H 22 H 25 H Blood Pressure 110/72 Pulse Oximetry 93 99 94 Oxygen Delivery Oxygen Flow Rate Fraction of Inspired Oxygen 10/12/25 14:40 10/12/25 14:45 10/12/25 14:46 Temperature Pulse Rate 110 H 106 H 115 H Respiratory Rate 23 H 24 H 23 H Blood Pressure Pulse Oximetry 95 Oxygen Delivery Oxygen Flow Rate Fraction of Inspired Oxygen 10/12/25 15:00 10/12/25 15:00 10/12/25 15:01 Temperature 37.1 C 37.1 C Pulse Rate 105 H 106 H 106 H Respiratory Rate 24 H 25 H 23 H Blood Pressure 100/64 100/64 Pulse Oximetry 94 93 93 Oxygen Delivery Oxygen Flow Rate Fraction of Inspired Oxygen 10/12/25 15:03 10/12/25 15:15 10/12/25 15:30 Temperature 37.1 C 37.0 C Pulse Rate 106 H 106 H Respiratory Rate 24 H 22 H 26 H Blood Pressure 105/52 L Pulse Oximetry 92 92 88 L Oxygen Delivery High Flow Nasal Cannula Oxygen Flow Rate 8 Fraction of Inspired Oxygen 10/12/25 15:31 10/12/25 15:40 10/12/25 15:45 Temperature 37.0 C 37.0 C Pulse Rate 107 H 107 H 106 H Respiratory Rate 25 H 24 H Blood Pressure 105/52 L Pulse Oximetry 84 L 98 Oxygen Delivery Oxygen Flow Rate Fraction of Inspired Oxygen 10/12/25 16:00 10/12/25 16:00 10/12/25 16:00 Temperature 36.9 C Pulse Rate 106 H 106 H 105 H Respiratory Rate 24 H 24 H Blood Pressure 98/58 L Pulse Oximetry 97 98 Oxygen Delivery High Flow Nasal Cannula Oxygen Flow Rate 7 Fraction of Inspired Oxygen 10/12/25 16:00 10/12/25 16:00 10/12/25 16:01 Temperature 36.9 C 36.9 C Pulse Rate 107 H 106 H 106 H Respiratory Rate 26 H 23 H 24 H Blood Pressure 98/58 L Pulse Oximetry 98 99 Oxygen Delivery Oxygen Flow Rate Fraction of Inspired Oxygen 10/12/25 16:15 10/12/25 16:30 10/12/25 16:31 Temperature 36.9 C 36.9 C 36.9 C Pulse Rate 106 H 105 H 106 H Respiratory Rate 26 H 24 H 23 H Blood Pressure 102/57 L Pulse Oximetry 98 95 97 Oxygen Delivery Oxygen Flow Rate Fraction of Inspired Oxygen 10/12/25 16:45 10/12/25 17:00 10/12/25 17:00 Temperature 36.9 C 36.9 C Pulse Rate 106 H 106 H Respiratory Rate 22 H 23 H Blood Pressure 99/60 L Pulse Oximetry 98 97 96 Oxygen Delivery High Flow Nasal Cannula Oxygen Flow Rate 4 Fraction of Inspired Oxygen 10/12/25 17:00 10/12/25 17:01 10/12/25 17:15 Temperature 36.9 C 36.9 C 36.9 C Pulse Rate 106 H 106 H 105 H Respiratory Rate 24 H 22 H 23 H Blood Pressure 100/47 L Pulse Oximetry 96 98 97 Oxygen Delivery Oxygen Flow Rate Fraction of Inspired Oxygen 10/12/25 17:30 10/12/25 17:31 10/12/25 17:45 Temperature 36.9 C 36.9 C 36.9 C Pulse Rate 105 H 105 H 105 H Respiratory Rate 23 H 25 H 24 H Blood Pressure 99/60 L Pulse Oximetry 96 100 94 Oxygen Delivery Oxygen Flow Rate Fraction of Inspired Oxygen 10/12/25 18:00 10/12/25 18:00 10/12/25 18:00 Temperature 36.9 C 36.9 C Pulse Rate 107 H 107 H 106 H Respiratory Rate 22 H 26 H Blood Pressure 102/63 102/63 Pulse Oximetry 100 99 Oxygen Delivery Oxygen Flow Rate Fraction of Inspired Oxygen 10/12/25 18:01 10/12/25 18:15 10/12/25 18:30 Temperature 36.9 C 36.9 C 36.9 C Pulse Rate 107 H 107 H 109 H Respiratory Rate 24 H 25 H 28 H Blood Pressure 107/65 Pulse Oximetry 96 100 91 Oxygen Delivery Oxygen Flow Rate Fraction of Inspired Oxygen 10/12/25 18:31 10/12/25 18:45 10/12/25 19:00 Temperature 36.9 C 36.9 C 36.9 C Pulse Rate 107 H 107 H 102 H Respiratory Rate 26 H 29 H 25 H Blood Pressure 111/67 Pulse Oximetry 94 91 89 L Oxygen Delivery Oxygen Flow Rate Fraction of Inspired Oxygen 10/12/25 19:01 10/12/25 19:15 10/12/25 19:30 Temperature 36.9 C 36.9 C 36.9 C Pulse Rate 107 H 109 H 108 H Respiratory Rate 27 H 26 H 25 H Blood Pressure 112/65 Pulse Oximetry 89 L 93 100 Oxygen Delivery Oxygen Flow Rate Fraction of Inspired Oxygen 10/12/25 19:31 10/12/25 19:45 10/12/25 20:00 Temperature 36.9 C 37.0 C Pulse Rate 108 H 109 H Respiratory Rate 27 H 27 H Blood Pressure Pulse Oximetry 100 96 Oxygen Delivery High Flow Nasal Cannula Oxygen Flow Rate 4 Fraction of Inspired Oxygen 10/12/25 20:00 10/12/25 20:00 10/12/25 20:00 Temperature 37.0 C 37.0 C Pulse Rate 108 H 109 H 108 H Respiratory Rate 27 H 26 H Blood Pressure 106/65 106/65 Pulse Oximetry 96 96 Oxygen Delivery Oxygen Flow Rate Fraction of Inspired Oxygen 10/12/25 20:01 10/12/25 20:09 10/12/25 20:15 Temperature 37.0 C 37.1 C Pulse Rate 106 H 108 H 108 H Respiratory Rate 26 H 28 H 24 H Blood Pressure Pulse Oximetry 95 98 Oxygen Delivery Oxygen Flow Rate Fraction of Inspired Oxygen 10/12/25 20:23 10/12/25 20:30 10/12/25 20:31 Temperature 37.1 C 37.1 C Pulse Rate 112 H 108 H 108 H Respiratory Rate 28 H 29 H 21 H Blood Pressure 106/72 Pulse Oximetry 95 95 Oxygen Delivery Oxygen Flow Rate Fraction of Inspired Oxygen 10/12/25 20:45 10/12/25 21:00 10/12/25 21:01 Temperature 37.1 C 37.1 C 37.1 C Pulse Rate 102 H 109 H 109 H Respiratory Rate 25 H 24 H 25 H Blood Pressure 111/53 L Pulse Oximetry 96 95 95 Oxygen Delivery Oxygen Flow Rate Fraction of Inspired Oxygen 10/12/25 22:00 10/12/25 23:00 10/12/25 23:34 Temperature 36.9 C 36.8 C Pulse Rate 109 H 106 H 109 H Respiratory Rate 24 H 20 13 Blood Pressure 105/63 107/59 L Pulse Oximetry 96 99 97 Oxygen Delivery BiPAP Oxygen Flow Rate Fraction of Inspired Oxygen 10/13/25 00:00 10/13/25 00:00 10/13/25 00:00 Temperature 36.7 C Pulse Rate 108 H 110 H Respiratory Rate 22 H Blood Pressure 107/76 Pulse Oximetry 95 96 Oxygen Delivery BiPAP Oxygen Flow Rate Fraction of Inspired Oxygen 30 10/13/25 01:00 10/13/25 02:00 10/13/25 02:00 Temperature 36.7 C 36.8 C Pulse Rate 110 H 110 H 109 H Respiratory Rate 21 H 25 H Blood Pressure 119/63 110/68 Pulse Oximetry 91 94 Oxygen Delivery Oxygen Flow Rate Fraction of Inspired Oxygen 10/13/25 03:00 10/13/25 04:00 10/13/25 04:00 Temperature 36.8 C 36.8 C Pulse Rate 103 H 105 H Respiratory Rate 24 H 24 H Blood Pressure 110/69 120/79 Pulse Oximetry 96 90 92 Oxygen Delivery Nasal Cannula Oxygen Flow Rate 4 Fraction of Inspired Oxygen 10/13/25 04:00 10/13/25 05:00 10/13/25 06:00 Temperature 36.8 C 36.7 C Pulse Rate 110 H 113 H 110 H Respiratory Rate 24 H 25 H Blood Pressure 116/72 116/81 Pulse Oximetry 92 94 Oxygen Delivery Oxygen Flow Rate Fraction of Inspired Oxygen 10/13/25 07:00 10/13/25 07:50 10/13/25 07:50 Temperature 36.2 C L Pulse Rate 115 H 112 H 110 H Respiratory Rate 26 H 24 H 24 H Blood Pressure 103/76 Pulse Oximetry 93 97 Oxygen Delivery High Flow Nasal Cannula Oxygen Flow Rate 4 Fraction of Inspired Oxygen 36 10/13/25 07:55 10/13/25 08:00 10/13/25 08:00 Temperature Pulse Rate 113 H 109 H 110 H Respiratory Rate 24 H 24 H Blood Pressure Pulse Oximetry 88 L Oxygen Delivery High Flow Nasal Cannula Oxygen Flow Rate 2 Fraction of Inspired Oxygen 28 10/13/25 08:05 10/13/25 10:52 Temperature Pulse Rate 109 H Respiratory Rate 24 H Blood Pressure Pulse Oximetry 93 Oxygen Delivery High Flow Nasal Cannula Nasal Cannula Oxygen Flow Rate 4 4 Fraction of Inspired Oxygen 36 Intake/Output Intake/Output: Intake & Output 10/10/25 10/11/25 10/12/25 10/13/25 23:59 23:59 23:59 23:59 Intake Total 900 1906 819.9 100 Output Total 500 1130 850 230 Balance 400 776 -30.1 -130 Meds/Results Medications: Active Medications Generic Name Dose Route Start Last Admin Trade Name Freq PRN Reason Stop Dose Admin Aspirin 81 mg 10/04/25 17:50 10/13/25 11:08 Aspirin 81 Mg Chewable Tablet PO Not Given DAILY@0800 VIKA Dextrose 12.5 gm 10/04/25 13:16 Dextrose 50% 25 Gm/50 Ml Syringe IV PUSH PRN PRN Hypoglycemia Protocol Dornase [place] 2.5 mg 10/09/25 10:40 10/13/25 07:53 Dornase [place] Inh Soln 1 Mg/Ml 2.5 Ml Amp INHALATION 2.5 mg Q12HRT VIKA Administration Glucagon 1 mg 10/04/25 13:16 Glucagon For Inj 1 Mg Vial IM PRN PRN Hypoglycemia Protocol Glucose 15 gm 10/04/25 13:16 Glucose Oral Gel 15 Gm Of Glucse In 37.5 Gm Tube PO PRN PRN Hypoglycemia Protocol Dextrose 1,000 mls @ 100 mls/hr 10/04/25 13:16 Dextrose 5% 1,000 Ml IVPB PRN PRN Hypoglycemia Protocol Ceftriaxone Sodium 2 gm/ 100 mls @ 200 mls/hr 10/11/25 08:45 10/13/25 09:06 Sodium Chloride IVPB Infused DAILY VIKA Infusion Phenylephrine HCl 50 mg/ 250 mls @ 0 mls/hr 10/11/25 18:25 10/12/25 15:40 Sodium Chloride IV CONT Infused .Q0M VIKA Titration Protocol 0 MCG/MIN Insulin Aspart 3 - 6 units 10/04/25 18:00 10/13/25 04:36 Insulin Aspart (*Bkc) 100 Units/Ml SUB-Q Not Given Q6HR [facility]1983 Protocol Ipratropium [place] 0.5 mg 10/07/25 07:43 10/12/25 20:10 Ipratropium Br 0.02% Inh Soln 0.5 Mg/2.5 Ml Vial INHALATION 0.5 mg Q6HRT PRN Administration Wheezing Lactulose 20 gm 10/11/25 09:00 10/13/25 11:08 Lactulose 20 Gm/30 Ml Udc FEED TUBE Not Given DAILY VIKA Levalbuterol HCl 0.63 mg 10/07/25 07:44 10/13/25 07:41 Levalbuterol Neb 1.25 Mg/3 Ml INHALATION 0.63 mg Q6HRT PRN Administration Wheezing Miscellaneous Information 0 each 10/11/25 00:01 Please Renew Dornase. Per [employer] Procedure, It Will Discontinue If Not Renewed XX 11/10/25 00:00 CLARIFY VIKA Multi-Ingred Cream/Lotion/Oil/Oint 1 applic 10/07/25 09:00 10/13/25 08:58 Mineral Oil/White Petrolatum Ointment EACH EYE 1 applic Q12HR VIKA Administration Ondansetron HCl 4 mg 10/13/25 03:50 Ondansetron Inj 4 Mg/2 Ml Vial IV PUSH Q4H PRN Nausea And Vomiting Pantoprazole Sodium 40 mg 10/04/25 21:00 10/13/25 08:36 Pantoprazole Sodium Iv 40 Mg Vial IV PUSH 40 mg Q12HR VIKA Administration Sodium Chloride 10 ml 10/04/25 14:00 10/13/25 04:36 Central Line Flush IV PUSH 10 ml Q8HR VIKA Administration Sodium Chloride 20 ml 10/04/25 09:27 10/09/25 06:04 Central Line Flush IV PUSH 20 ml PRN PRN Administration after blood draws Thiamine HCl 100 mg 10/05/25 09:00 10/13/25 08:36 Thiamine Hcl 200 Mg/2 Ml Vial IV PUSH 100 mg QAM VIKA Administration Radiology Results: ITS Impressions Head CT 10/04/25 07:09 IMPRESSION: 1. No acute intracranial findings. Chest/Abdomen/Pelvis CT 10/04/25 07:26 IMPRESSION: CHEST- 1. Interstitial pulmonary edema and small right pleural effusion. 2. Superimposed pneumonitis or interstitial lung disease not excluded. ABDOMEN/PELVIS- 1. Colonic hepatic flexure wall thickening. Colitis and/or malignancy. 2. Additional findings as above. Renal Ultrasound 10/05/25 13:44 Impression: 1: Unremarkable renal ultrasound. No stones, masses or hydronephrosis. 2: Splenomegaly. 3: Ascites. Chest X-Ray 10/13/25 09:40 IMPRESSION: 1. Worsening pulmonary edema and/or multifocal airspace disease. 2. Persistent significant bibasilar atelectasis and/or airspace disease. 3. Pleural effusions not excluded. Labs Labs: Laboratory Results - last 24 hr 10/12/25 10/12/25 10/13/25 14:22 17:30 02:41 WBC RBC Hgb Hct MCV MCH MCHC RDW Plt Count MPV Immature Gran % (Auto) Neut % (Auto) Lymph % (Auto) [place] % (Auto) Eos % (Auto) Baso % (Auto) Lymph # (Auto) [place] # (Auto) Eos # (Auto) Baso # (Auto) Abs Immat Gran (auto) Absolute Neuts (auto) Absolute Nucleated RBC Band Neutrophils % Nucleated RBC % Platelet Estimate % Immature Plt Fraction Polychromasia Hypochromasia Anisocytosis Tear Drop Cells Schistocytes Puncture Site Left radial Left radial ABG pH 7.365 7.335 L ABG pCO2 36.6 43.2 ABG pO2 68.2 L 98.1 ABG PO2/FiO2 Ratio 2.27 1.89 ABG HCO3 20.4 L 22.5 ABG O2 Saturation 93.2 L 97.1 ABG O2 Content 11.1 L 11.7 L ABG Base Excess -4.4 -3.1 A-a Gradient 102.7 224.3 Oxyhemoglobin 90.9 95.3 Carboxyhemoglobin 1.3 1.4 Methemoglobin 0.0 0.1 Reduced Hemoglobin 7.8 H 3.2 Total Hemoglobin 8.6 L 8.6 L O2 Delivery Device Ventilator High flow nasal [place] O2 Liters/Min Not Reportable 8.0 Minute Volume Not Reportable Vent Rate Not Reportable Vent Mode Spontaneous FiO2 30 52 Tidal Volume Not Reportable PEEP 5 Peak Inspir Pressure Not Reportable Pressure Support 8 Sodium Potassium Chloride Carbon Dioxide Anion Gap BUN Creatinine Estim Creat Clear Calc Estimated GFR Glucose POC Capillary Glucose 187 H Calcium Phosphorus Magnesium Total Bilirubin AST ALT Alkaline Phosphatase Ammonia Total Protein Albumin 12/06/25 12/06/25 03:56 03:57 WBC 6.2 RBC 2.21 L Hgb 7.6 L Hct 24.9 L MCV 112.7 H MCH 34.4 H MCHC 30.5 L RDW 16.2 H Plt Count 54 L MPV 10.8 H Immature Gran % (Auto) 1.9 H Neut % (Auto) 67.0 Lymph % (Auto) 16.3 L [place] % (Auto) 10.3 H Eos % (Auto) 3.7 Baso % (Auto) 0.8 Lymph # (Auto) 1.01 [place] # (Auto) 0.6 Eos # (Auto) 0.2 Baso # (Auto) 0.1 Abs Immat Gran (auto) 0.12 H Absolute Neuts (auto) 4.2 Absolute Nucleated RBC 0.020 H Band Neutrophils % Not Reportable Nucleated RBC % 0.3 H Platelet Estimate Decreased % Immature Plt Fraction 2.6 Polychromasia Occasional Hypochromasia 1+ Anisocytosis 1+ Tear Drop Cells 1+ Schistocytes None seen Puncture Site ABG pH ABG pCO2 ABG pO2 ABG PO2/FiO2 Ratio ABG HCO3 ABG O2 Saturation ABG O2 Content ABG Base Excess A-a Gradient Oxyhemoglobin Carboxyhemoglobin Methemoglobin Reduced Hemoglobin Total Hemoglobin O2 Delivery Device O2 Liters/Min Minute Volume Vent Rate Vent Mode FiO2 Tidal Volume PEEP Peak Inspir Pressure Pressure Support Sodium 149 H Potassium 3.9 Chloride 116 H Carbon Dioxide 21 L Anion Gap 12 BUN 105 H* D Creatinine 4.68 H Estim Creat Clear Calc 25 Estimated GFR 13 L Glucose 160 H POC Capillary Glucose Calcium 9.8 Phosphorus 5.5 H Magnesium 2.5 H Total Bilirubin 5.4 H AST 52 ALT 21 Alkaline Phosphatase 77 Ammonia 18 Total Protein 8.8 H Albumin 4.3
--- NOTE | 2025-10-13 14:48 | PC.NURSE ---
This patient, Blake Smith, was transferred to [facility] on 10/13/25 at 1440. Personal belongings sent with patient. Report given to Leana YATES. Appropriate documentation sent with patient.
--- NOTE | 2025-10-13 15:39 | PC.NURSE ---
1435- receive pt from ICU 6 to room 232. Pt up in recliner- O2 on 4l/nc spo2@ 96 %; ST @ 105; pt drowsy -awakens to name- stated name then back to sleep ; family at bedside- oriented to room and routines of floor
[2025-10-14] VITALS (14 sets, daily range): BP systolic 110–122; BP diastolic 62–79; PULSE 107–111; RESP 16–28; TEMP 35.7–36.5; O2SAT 93–98
[2025-10-14 04:27] LABS: Hematocrit 24.3 % (42.0-52.0); Hemoglobin 7.4 g/dL (14.0-18.0); Immature Granulocyte Percent A 2.0 % (0-0.5); Immature Platelet Fraction Pct 2.8 % (0.9-11.2); Lymphocytes Absolute Auto 0.80 K/mm3 (0.9-3.2); Mean Corpuscular HGB Conc 30.5 g/dl (32-36); Mean Corpuscular Hemoglobin 34.7 pg (26-34); Mean Corpuscular Volume 114.1 fl (80-100); Nucleated Red Blood Cells Absolute Auto 0.030 K/mm3 (0.0-0.012); Nucleated Red Blood Cells Perc 0.5 % (0.0-0.2); Platelet Count Result 56 k/mm3 (150-375); Red Blood Count 2.13 M/mm3 (4.6-6.20); White Blood Count 6.5 K/mm3 (4.5-10.0)
[2025-10-14 04:43] LABS: Alanine Aminotransferase 21 U/L (6-50); Albumin Level 4.4 g/dL (3.5-5.1); Alkaline Phosphatase 74 U/L (38-126); Anion Gap 15 mmol/L (4-12); Aspartate Amino Transferase 49 U/L (17-59); Bilirubin,Total 6.7 mg/dL (0.2-1.3); Blood Urea Nitrogen 115 mg/dL (9-20); Calcium 10.1 mg/dL (8.4-10.2); Carbon Dioxide 19 mmol/L (22-30); Chloride 115 mmol/L (98-107); Estimated CRCL calculation 23 ml/min; Estimated Glomerular Filt Rate 12; Glucose 134 mg/dL (65-110); Magnesium 2.7 mg/dL (1.6-2.3); Potassium 4.0 mmol/L (3.4-5.0); Sodium 149 mmol/L (137-145); Total Protein 9.0 g/dL (6.3-8.2)
--- NOTE | 2025-10-14 09:46 | PCSTNOTE ---
Please refer to the Bedside Swallow Evaluation in the EMR. Please note, silent aspiration cannot be ruled out at bedside.
[2025-10-14] MEDS: cefTRIAXone 2 GM in SODIUM CHLORIDE 0.9% IV 100 ML 200 ML IVPB (10:00)
[2025-10-14] MEDS: THIAMINE HCL 200 MG/2 ML VIAL 100 MG IV PUSH (10:00)
[2025-10-14] MEDS: PANTOPRAZOLE SODIUM IV 40 MG VIAL IV PUSH ×2 (10:00→21:19)
--- NOTE | 2025-10-14 11:30 | PM.PNNEP ---
Progress Note: A&P Assessment and Plan (1) Acute kidney injury: Code(s): N17.9 - Acute kidney failure, unspecified Status: Acute Assessment and Plan: as noted by labs on 10/05 (creatinine up to 2.87mg/dL) admission creatinine at baseline complicated by diminished urine output and volume overload however, somewhat responsive to diuretics suspect multifactorial etiology: hemodynamic instability/shock infection/sepsis hypoxia cocaine use CHF rhabdomyolysis NSTEMI pre renal factors other(?) evaluation to date noted: renal ultrasound shows normal kidneys CK was elevated but trending down (although was high enough to cause damage to the kidneys) UA shows blood protein and red cells urine electrolytes (FeNA & FeUrea) reflect a pre renal state urine eosinophils negative moderate proteinuria IV diuretics PRN still remains at risk for SECRETARY TO THE VICE PRESIDENT/dialysis trial of IV bumex today follow trend of repeat labs and UOP (2) Stage 3b chronic kidney disease: Code(s): N18.32 - Chronic kidney disease, stage 3b Status: Chronic Assessment and Plan: creatinine 1.87mg/dL ~ 8 months ago on hospital discharge was fluctuating 1.8 - 2.2mg/dL in the context of IV diuresis in January 2025 prior to that, creatinine was ~ 1.1 - 1.2 in March of 2023 presumably due to combination of diuretic use for CHF, diabetes, and hypertension +/- vascular disease (3) Septic shock: Code(s): A41.9 - Sepsis, unspecified organism; R65.21 - Severe sepsis with septic shock Status: Acute Assessment and Plan: presented with hypotension unresponsive to IVF resuscitation s/p 3.5L IVFs with no improvement in blood pressure s/p RIJ central line placement and initiation of vasopressor therapy suspected source include pneumonia, lower abdominal wall cellulitis, and/or heart failure follow culture data (blood, sputum, and urine) 10/04 sputum culture with Pseudomonas and Staph aureus 10/04 blood cultures with Streptococcus dysgalactiae lactic acid has normalized weaned off vasopressor therapy on antibiotics (4) Acute respiratory failure: Code(s): J96.00 - Acute respiratory failure, unspecified whether with hypoxia or hypercapnia Status: Acute Assessment and Plan: extubated on 10/12 intubated in ER for impending respiratory failure noted hypoxia worsening SOB with IVF resuscitation decline in respiratory status felt to be secondary to CHF +/- pneumonia wean supplemental oxygen as tolerated follow respiratory status (5) Acute CHF: Code(s): I50.9 - Heart failure, unspecified Status: Acute Assessment and Plan: known history admission CXR with pulmonary vascular congestion last Echo (01/16/25) noted: left ventricular systolic function is normal, estimated at 65 - 70% left ventricular diastolic function is grade I diastolic dysfunction moderate to severe aortic valve stenosis with a peak velocity of 407 cm/s, mean gradient of 43 mmHg, and aortic valve area of 1.2 cm2 mild aortic valve regurgitation mild to moderate tricuspid valve regurgitation pulmonary hypertension, estimated pulmonary arterial systolic pressure is 48 mmHg repeat Echo (10/05/25) reviewed: left ventricular systolic function is normal, estimated at 55 - 60% left ventricular diastolic function is abnormal severe aortic valve stenosis with a peak velocity of 435 cm/s, mean gradient of 43 mmHg, and aortic valve area of 0.9 cm2 mild to moderate aortic valve regurgitation mild mitral valve regurgitation mild to moderate tricuspid valve regurgitation moderate pulmonary hypertension, estimated pulmonary arterial systolic pressure is 56 mmHg trace pulmonic regurgitation with better hemodynamics trial dose of IV bumex today follow I/Os, daily weights, and respiratory status Cardiology following (6) Anasarca: Code(s): R60.1 - Generalized edema Status: Acute Assessment and Plan: likely a combination of CHF , MARIO, and liver cirrhosis/hypoalbuminemia Echo as noted (see #5) re-attempt diuretics today (7) Cirrhosis: Code(s): K74.60 - Unspecified cirrhosis of liver Status: Acute Assessment and Plan: as noted by CT imaging: noted spleen enlargement and cirrhosis also with anasarca trend bilirubin and LFTs on lactulose (ammonia level has normalized) GI following (8) Anemia: Code(s): D64.9 - Anemia, unspecified Status: Acute Assessment and Plan: as noted concern for GI loss given bleeding noted from OG tube this appears to have resolved suspect related to MARIO, CKD, and liver disease/cirrhosis PRBC transfusion per protocol consider PATRICIA given #1 and #2 (9) Thrombocytopenia: Code(s): D69.6 - Thrombocytopenia, unspecified Status: Acute Assessment and Plan: chronic issue saw Heme/Onc in the past and this is felt to be related to cirrhosis and alcohol use platelet transfusion PRN (10) DM2 (diabetes mellitus, type 2): Code(s): E11.9 - Type 2 diabetes mellitus without complications Status: Chronic Assessment and Plan: follow accu-cheks glycemic control per judicial reporter/hospitalist Given worsening renal function/creatinine in association with azotemia as well as anasarca/fluid overload, I am worried he may need to start renal replacement therapy/dialysis in an effort to optimize electrolytes, acidosis, possible uremia and more importantly, his volume/fluid status. Long and extensive discussion (> 25 minutes) with patient, his and family at bedside. The patient seemed to indicate he would be willing to proceed with this intervention. Trial of IV diuretics and follow trend of repeat labs and UOP. Will continue to follow. Subjective Date/time seen: 10/14/25 11:30 Interval history: Follow-up for acute kidney injury/acute renal failure on chronic kidney disease. Transferred out of the ICU yesterday; renal function/creatinine along with BUN continue to worsen; slightly better urine output noted in the last 24 hours; still requiring supplemental oxygen and mentation seems to wax and wane; discussed situation with his /family at bedside. Exam Narrative: General: WD/WN male in NAD Heart: normal S1 and S2; no rub Lungs: coarse breath sounds Abdomen: soft, nontender, nondistended, positive bowel sounds Extremities: no cyanosis or clubbing; 1+ edema Skin: chronic venous stasis/skin changes noted Objective Data Vital Signs Vital Signs: Vital Signs Temp Pulse Resp BP Pulse Ox O2 Del Method O2 Flow Rate 10/14/25 11:00 97.4 F L 111 H 28 H 119/79 97 10/14/25 09:23 110 H 24 H 93 High Flow Nasal Cannula 4 10/14/25 08:00 96.2 F L 108 H 16 122/62 97 10/14/25 06:00 108 H 10/14/25 04:00 109 H 10/14/25 04:00 94 Nasal Cannula 4 10/14/25 04:00 97.6 F 108 H 23 H 110/63 94 10/14/25 02:00 111 H 10/14/25 00:00 109 H 10/14/25 00:00 96 Nasal Cannula 4 10/13/25 23:47 97.6 F 109 H 20 112/68 96 10/13/25 23:35 94 High Flow Nasal Cannula 4 10/13/25 22:00 110 H 10/13/25 20:00 92 Nasal Cannula 4 10/13/25 20:00 109 H 10/13/25 20:00 97.7 F 109 H 18 113/69 96 10/13/25 18:00 109 H 10/13/25 16:30 108 H 10/13/25 16:25 82/46 L 10/13/25 16:00 97.9 F 108 H 16 87/35 L 98 Intake/Output Intake/Output: Intake & Output 10/11/25 10/12/25 10/13/25 10/14/25 23:59 23:59 23:59 23:59 Intake Total 1906 819.9 151 250 Output Total 1130 850 230 525 Balance 776 -30.1 -79 -275 Meds/Results Medications: Active Medications Generic Name Dose Route Start Last Admin Trade Name Freq PRN Reason Stop Dose Admin Aspirin 81 mg 10/04/25 17:50 10/13/25 11:08 Aspirin 81 Mg Chewable Tablet PO Not Given DAILY@0800 [facility] Carvedilol 3.125 mg 10/14/25 09:00 Carvedilol 3.125 Mg Tablet PO Q12H [facility] Dextrose 12.5 gm 10/04/25 13:16 Dextrose 50% 25 Gm/50 Ml Syringe IV PUSH PRN PRN Hypoglycemia Protocol Ferrous Sulfate 325 mg 10/14/25 09:00 Ferrous Sulfate 325 Mg Tablet PO 11/13/25 08:59 DAILY [facility] Glucagon 1 mg 10/04/25 13:16 Glucagon For Inj 1 Mg Vial IM PRN PRN Hypoglycemia Protocol Glucose 15 gm 10/04/25 13:16 Glucose Oral Gel 15 Gm Of Glucse In 37.5 Gm Tube PO PRN PRN Hypoglycemia Protocol Dextrose 1,000 mls @ 100 mls/hr 10/04/25 13:16 Dextrose 5% 1,000 Ml IVPB PRN PRN Hypoglycemia Protocol Ceftriaxone Sodium 2 gm/ 100 mls @ 200 mls/hr 10/11/25 08:45 10/14/25 10:00 Sodium Chloride IVPB 200 mls/hr DAILY [facility] Administration Insulin Aspart 2 - 5 units 10/14/25 12:00 10/14/25 12:21 Insulin Aspart (*Bkc) 100 Units/Ml SUB-Q Not Given TIDWM [facility] Protocol Insulin Aspart 1 - 2 units 10/14/25 21:00 Insulin Aspart (*Bkc) 100 Units/Ml SUB-Q HS [facility] Protocol Insulin Glargine 28 units 10/14/25 21:00 Insulin Glargine (*Bkc) 100 Units/Ml SUB-Q HS [facility] Ipratropium [place] 0.5 mg 10/07/25 07:43 10/12/25 20:10 Ipratropium Br 0.02% Inh Soln 0.5 Mg/2.5 Ml Vial INHALATION 0.5 mg Q6HRT PRN Administration Wheezing Lactulose 20 gm 10/11/25 09:00 10/13/25 11:08 Lactulose 20 Gm/30 Ml Udc FEED TUBE Not Given DAILY [facility] Levalbuterol HCl 0.63 mg 10/07/25 07:44 10/13/25 07:41 Levalbuterol Neb 1.25 Mg/3 Ml INHALATION 0.63 mg Q6HRT PRN Administration Wheezing Ondansetron HCl 4 mg 10/13/25 03:50 Ondansetron Inj 4 Mg/2 Ml Vial IV PUSH Q4H PRN Nausea And Vomiting Pantoprazole Sodium 40 mg 10/04/25 21:00 10/14/25 10:00 Pantoprazole Sodium Iv 40 Mg Vial IV PUSH 40 mg Q12HR [facility] Administration Potassium Chloride 20 meq 10/14/25 09:00 Potassium Chloride 20 Meq Er Tablet PO DAILY [facility] Thiamine HCl 100 mg 10/05/25 09:00 10/14/25 10:00 Thiamine Hcl 200 Mg/2 Ml Vial IV PUSH 100 mg QAM [facility]KA Administration Radiology Results: ITS Impressions Head CT 10/04/25 07:09 IMPRESSION: 1. No acute intracranial findings. Chest/Abdomen/Pelvis CT 10/04/25 07:26 IMPRESSION: CHEST- 1. Interstitial pulmonary edema and small right pleural effusion. 2. Superimposed pneumonitis or interstitial lung disease not excluded. ABDOMEN/PELVIS- 1. Colonic hepatic flexure wall thickening. Colitis and/or malignancy. 2. Additional findings as above. Renal Ultrasound 10/05/25 13:44 Impression: 1: Unremarkable renal ultrasound. No stones, masses or hydronephrosis. 2: Splenomegaly. 3: Ascites. Chest X-Ray 10/13/25 09:40 IMPRESSION: 1. Worsening pulmonary edema and/or multifocal airspace disease. 2. Persistent significant bibasilar atelectasis and/or airspace disease. 3. Pleural effusions not excluded. Labs Labs: Laboratory Tests 10/14/25 04:16 10/14/25 04:16 Calcium 10.1 Phosphorus 6.3 H Magnesium 2.7 H Total Bilirubin 6.7 H AST 49 ALT 21 Alkaline Phosphatase 74 Total Protein 9.0 H Albumin 4.4 Microbiology 10/11/25 09:02 Blood Blood Culture - Preliminary 10/11/25 08:48 Blood Blood Culture - Preliminary Quality trial of IV bumex 2mg x 1
--- NOTE | 2025-10-14 11:30 | P.PNNP_ITS ---
Progress Note: A&P Assessment and Plan (1) Acute kidney injury: Code(s): N17.9 - Acute kidney failure, unspecified Status: Acute Assessment and Plan: * as noted by labs on 10/05 (creatinine up to 2.87mg/dL) * admission creatinine at baseline * complicated by diminished urine output and volume overload * however, somewhat responsive to diuretics * suspect multifactorial etiology: * hemodynamic instability/shock * infection/sepsis * hypoxia * cocaine use * CHF * rhabdomyolysis * NSTEMI * pre renal factors * other(?) * evaluation to date noted: * renal ultrasound shows normal kidneys * CK was elevated but trending down (although was high enough to cause damage to the kidneys) * UA shows blood protein and red cells * urine electrolytes (FeNA & FeUrea) reflect a pre renal state * urine eosinophils negative * moderate proteinuria * IV diuretics PRN * still remains at risk for METAL GRADER/dialysis * trial of IV bumex today * follow trend of repeat labs and UOP (2) Stage 3b chronic kidney disease: Code(s): N18.32 - Chronic kidney disease, stage 3b Status: Chronic Assessment and Plan: * creatinine 1.87mg/dL ~ 8 months ago on hospital discharge * was fluctuating 1.8 - 2.2mg/dL in the context of IV diuresis in January 2025 * prior to that, creatinine was ~ 1.1 - 1.2 in March of 2023 * presumably due to combination of diuretic use for CHF, diabetes, and hypertension +/- vascular disease (3) Septic shock: Code(s): A41.9 - Sepsis, unspecified organism; R65.21 - Severe sepsis with septic shock Status: Acute Assessment and Plan: * presented with hypotension unresponsive to IVF resuscitation * s/p 3.5L IVFs with no improvement in blood pressure * s/p RIJ central line placement and initiation of vasopressor therapy * suspected source include pneumonia, lower abdominal wall cellulitis, and/or heart failure * follow culture data (blood, sputum, and urine) * 10/04 sputum culture with Pseudomonas and Staph aureus * 10/04 blood cultures with Streptococcus dysgalactiae * lactic acid has normalized * weaned off vasopressor therapy * on antibiotics (4) Acute respiratory failure: Code(s): J96.00 - Acute respiratory failure, unspecified whether with hypoxia or hypercapnia Status: Acute Assessment and Plan: * extubated on 10/12 * intubated in ER for impending respiratory failure * noted hypoxia * worsening SOB with IVF resuscitation * decline in respiratory status felt to be secondary to CHF +/- pneumonia * wean supplemental oxygen as tolerated * follow respiratory status (5) Acute CHF: Code(s): I50.9 - Heart failure, unspecified Status: Acute Assessment and Plan: * known history * admission CXR with pulmonary vascular congestion * last Echo (01/16/25) noted: * left ventricular systolic function is normal, estimated at 65 - 70% * left ventricular diastolic function is grade I diastolic dysfunction * moderate to severe aortic valve stenosis with a peak velocity of 407 cm/s, mean gradient of 43 mmHg, and aortic valve area of 1.2 cm2 * mild aortic valve regurgitation * mild to moderate tricuspid valve regurgitation * pulmonary hypertension, estimated pulmonary arterial systolic pressure is 48 mmHg * repeat Echo (10/05/25) reviewed: * left ventricular systolic function is normal, estimated at 55 - 60% * left ventricular diastolic function is abnormal * severe aortic valve stenosis with a peak velocity of 435 cm/s, mean gradient of 43 mmHg, and aortic valve area of 0.9 cm2 * mild to moderate aortic valve regurgitation * mild mitral valve regurgitation * mild to moderate tricuspid valve regurgitation * moderate pulmonary hypertension, estimated pulmonary arterial systolic pressure is 56 mmHg * trace pulmonic regurgitation * with better hemodynamics * trial dose of IV bumex today * follow I/Os, daily weights, and respiratory status * Cardiology following (6) Anasarca: Code(s): R60.1 - Generalized edema Status: Acute Assessment and Plan: * likely a combination of CHF , MARIO, and liver cirrhosis/hypoalbuminemia * Echo as noted (see #5) * re-attempt diuretics today (7) Cirrhosis: Code(s): K74.60 - Unspecified cirrhosis of liver Status: Acute Assessment and Plan: * as noted by CT imaging: * noted spleen enlargement and cirrhosis * also with anasarca * trend bilirubin and LFTs * on lactulose (ammonia level has normalized) * GI following (8) Anemia: Code(s): D64.9 - Anemia, unspecified Status: Acute Assessment and Plan: * as noted * concern for GI loss given bleeding noted from OG tube * this appears to have resolved * suspect related to MARIO, CKD, and liver disease/cirrhosis * PRBC transfusion per protocol * consider PATRICIA given #1 and #2 (9) Thrombocytopenia: Code(s): D69.6 - Thrombocytopenia, unspecified Status: Acute Assessment and Plan: * chronic issue * saw Heme/Onc in the past and this is felt to be related to cirrhosis and alcohol use * platelet transfusion PRN (10) DM2 (diabetes mellitus, type 2): Code(s): E11.9 - Type 2 diabetes mellitus without complications Status: Chronic Assessment and Plan: * follow accu-cheks * glycemic control per lithographic platemaker/hospitalist Given worsening renal function/creatinine in association with azotemia as well as anasarca/fluid overload, I am worried he may need to start renal replacement therapy/dialysis in an effort to optimize electrolytes, acidosis, possible uremia and more importantly, his volume/fluid status. Long and extensive discussion (> 25 minutes) with patient, his and family at bedside. The patient seemed to indicate he would be willing to proceed with this intervention. Trial of IV diuretics and follow trend of repeat labs and UOP. Will continue to follow. L Subjective Date/time seen: 10/14/25 11:30 Interval history: Follow-up for acute kidney injury/acute renal failure on chronic kidney disease. Transferred out of the ICU yesterday; renal function/creatinine along with BUN continue to worsen; slightly better urine output noted in the last 24 hours; still requiring supplemental oxygen and mentation seems to wax and wane; discussed situation with his /family at bedside. Exam 2 Narrative: General: WD/WN male in NAD Heart: normal S1 and S2; no rub Lungs: coarse breath sounds Abdomen: soft, nontender, nondistended, positive bowel sounds Extremities: no cyanosis or clubbing; 1+ edema Skin: chronic venous stasis/skin changes noted Objective Data Vital Signs Vital Signs: Vital Signs Temp Pulse Resp BP Pulse Ox O2 Del Method O2 Flow Rate 10/14/25 11:00 97.4 F L 111 H 28 H 119/79 97 10/14/25 09:23 110 H 24 H 93 High Flow Nasal Cannula 4 10/14/25 08:00 96.2 F L 108 H 16 122/62 97 10/14/25 06:00 108 H 10/14/25 04:00 109 H 10/14/25 04:00 94 Nasal Cannula 4 10/14/25 04:00 97.6 F 108 H 23 H 110/63 94 10/14/25 02:00 111 H 10/14/25 00:00 109 H 10/14/25 00:00 96 Nasal Cannula 4 10/13/25 23:47 97.6 F 109 H 20 112/68 96 10/13/25 23:35 94 High Flow Nasal Cannula 4 10/13/25 22:00 110 H 10/13/25 20:00 92 Nasal Cannula 4 10/13/25 20:00 109 H 10/13/25 20:00 97.7 F 109 H 18 113/69 96 10/13/25 18:00 109 H 10/13/25 16:30 108 H 10/13/25 16:25 82/46 L 10/13/25 16:00 97.9 F 108 H 16 87/35 L 98 Intake/Output Intake/Output: Intake & Output 10/11/25 10/12/25 10/13/25 10/14/25 23:59 23:59 23:59 23:59 Intake Total 1906 819.9 151 250 Output Total 1130 850 230 525 Balance 776 -30.1 -79 -275 Meds/Results Medications: Active Medications Generic Name Dose Route Start Last Admin Trade Name Freq PRN Reason Stop Dose Admin Aspirin 81 mg 10/04/25 17:50 10/13/25 11:08 Aspirin 81 Mg Chewable Tablet PO Not Given DAILY@0800 [facility] Carvedilol 3.125 mg 10/14/25 09:00 Carvedilol 3.125 Mg Tablet PO Q12H [facility] Dextrose 12.5 gm 10/04/25 13:16 Dextrose 50% 25 Gm/50 Ml Syringe IV PUSH PRN PRN Hypoglycemia Protocol Ferrous Sulfate 325 mg 10/14/25 09:00 Ferrous Sulfate 325 Mg Tablet PO 11/13/25 08:59 DAILY [facility] Glucagon 1 mg 10/04/25 13:16 Glucagon For Inj 1 Mg Vial IM PRN PRN Hypoglycemia Protocol Glucose 15 gm 10/04/25 13:16 Glucose Oral Gel 15 Gm Of Glucse In 37.5 Gm Tube PO PRN PRN Hypoglycemia Protocol Dextrose 1,000 mls @ 100 mls/hr 10/04/25 13:16 Dextrose 5% 1,000 Ml IVPB PRN PRN Hypoglycemia Protocol Ceftriaxone Sodium 2 gm/ 100 mls @ 200 mls/hr 10/11/25 08:45 10/14/25 10:00 Sodium Chloride IVPB 200 mls/hr DAILY [facility] Administration Insulin Aspart 2 - 5 units 10/14/25 12:00 10/14/25 12:21 Insulin Aspart (*Bkc) 100 Units/Ml SUB-Q Not Given TIDWM [facility] Protocol Insulin Aspart 1 - 2 units 10/14/25 21:00 Insulin Aspart (*Bkc) 100 Units/Ml SUB-Q HS [facility] Protocol Insulin Glargine 28 units 10/14/25 21:00 Insulin Glargine (*Bkc) 100 Units/Ml SUB-Q [facility] Ipratropium [place] 0.5 mg 10/07/25 07:43 10/12/25 20:10 Ipratropium Br 0.02% Inh Soln 0.5 Mg/2.5 Ml Vial INHALATION 0.5 mg Q6HRT PRN Administration Wheezing Lactulose 20 gm 10/11/25 09:00 10/13/25 11:08 Lactulose 20 Gm/30 Ml Udc FEED TUBE Not Given DAILY [facility] Levalbuterol HCl 0.63 mg 10/07/25 07:44 10/13/25 07:41 Levalbuterol Neb 1.25 Mg/3 Ml INHALATION 0.63 mg Q6HRT PRN Administration Wheezing Ondansetron HCl 4 mg 10/13/25 03:50 Ondansetron Inj 4 Mg/2 Ml Vial IV PUSH Q4H PRN Nausea And Vomiting Pantoprazole Sodium 40 mg 10/04/25 21:00 10/14/25 10:00 Pantoprazole Sodium Iv 40 Mg Vial IV PUSH 40 mg Q12HR [facility] Administration Potassium Chloride 20 meq 10/14/25 09:00 Potassium Chloride 20 Meq Er Tablet PO DAILY [facility] Thiamine HCl 100 mg 10/05/25 09:00 10/14/25 10:00 Thiamine Hcl 200 Mg/2 Ml Vial IV PUSH 100 mg QAM [facility]KA Administration Radiology Results: ITS Impressions Head CT 10/04/25 07:09 IMPRESSION: 1. No acute intracranial findings. Chest/Abdomen/Pelvis CT 10/04/25 07:26 IMPRESSION: CHEST- 1. Interstitial pulmonary edema and small right pleural effusion. 2. Superimposed pneumonitis or interstitial lung disease not excluded. ABDOMEN/PELVIS- 1. Colonic hepatic flexure wall thickening. Colitis and/or malignancy. 2. Additional findings as above. Renal Ultrasound 10/05/25 13:44 Impression: 1: Unremarkable renal ultrasound. No stones, masses or hydronephrosis. 2: Splenomegaly. 3: Ascites. Chest X-Ray 10/13/25 09:40 IMPRESSION: 1. Worsening pulmonary edema and/or multifocal airspace disease. 2. Persistent significant bibasilar atelectasis and/or airspace disease. 3. Pleural effusions not excluded. Labs Labs: Laboratory Tests 10/14/25 04:16 10/14/25 04:16 Calcium 10.1 Phosphorus 6.3 H Magnesium 2.7 H Total Bilirubin 6.7 H AST 49 ALT 21 Alkaline Phosphatase 74 Total Protein 9.0 H Albumin 4.4 Microbiology 10/11/25 09:02 Blood Blood Culture - Preliminary 10/11/25 08:48 Blood Blood Culture - Preliminary Quality trial of IV bumex 2mg x 1
--- NOTE | 2025-10-14 12:46 | P.PNCA_ITS ---
Progress Note: A&P Assessment and Plan (1) Elevated troponin: Code(s): R79.89 - Other specified abnormal findings of blood chemistry Status: Acute (2) Aortic stenosis: Code(s): I35.0 - Nonrheumatic aortic (valve) stenosis Status: Acute (3) Acute CHF: Code(s): I50.9 - Heart failure, unspecified Status: Acute Plan persistent a flutter with RVR Acute on Chronic diastolic heart failure; LVEF 55-60% Elevated troponin of 4.720, 8.720, 13.00 without chest pain-most likely secondary to above; underlying CAD is also on the differential Severe aortic stenosis-aortic valve area 0.9 cm2 and mean gradient 43 mm Hg Moderate pulmonary hypertension with PASP of 56 mm Hg S/p Extubation Sepsis-on IV antibiotics Thrombocytopenia and Anemia MARIO on CKD Altered mental status-could be multifactorial given severe MARIO, substance abuse, acute hypoxic respiratory failure, sepsis Substance abuse-cocaine and cannabis Plan: Consider resuming diuresis since kidney function did not improve with holding the diuretics No AC at this time as one time episode of afib, patient with anemia, thrombocytopenia and hematuria. Will monitor for recurrence Work up for CAD and aortic valve stenosis when recovers from infection Subjective Date/time seen: 10/14/25 12:46 Interval history: Follow-up atrial fibrillation Telemetry atrial flutter heart rate 110 No acute events Review of Systems Review of Systems: ROS unobtainable: Yes unobtainable due to mental status Exam Narrative: General: Confused and obtunded is more Neck: Supple, unable to assess JVD Chest: Scattered wheezes, no rales or rhonchi Cardiac: S1, S2 +, tachy rate, regular rhythm, systolic murmur Extremities: Bilateral lower extremity edema 1+, no skin rash Neurologic: movign extremitis and no eviudence of focal deficit Const: Other: Morbidly obese intubated chronically ill-appearing white male HENMT: Mouth: Yes moist mucous membranes Eyes: Sclera: sclerae normal Neck: Other: Patient has very thick neck no ability to discern venous distention carotid pulses are grossly intact bilateral Resp: Other: Breath sounds are grossly clear anterior Cardio: Rate: regular rate Rhythm: regular rhythm Other: Low pitched grade 2/6 crescendo decrescendo murmur is audible at the base GI: Auscultation: normal bowel sounds Urinary Catheter: Urinary Catheter: patent and draining Skin: General skin exam: normal color Neuro: Other: Intubated/sedated Extrem: Other: Chronically edematous changes of venous insufficiency Objective Data Vital Signs Vital Signs: Vital Signs - 24 hr 10/13/25 14:00 10/13/25 16:00 10/13/25 16:25 Temperature 36.6 C Pulse Rate 101 H 108 H Respiratory Rate 16 Blood Pressure 87/35 L 82/46 L Pulse Oximetry 98 Oxygen Delivery Oxygen Flow Rate Fraction of Inspired Oxygen 10/13/25 16:30 10/13/25 18:00 10/13/25 20:00 Temperature 36.5 C Pulse Rate 108 H 109 H 109 H Respiratory Rate 18 Blood Pressure 113/69 Pulse Oximetry 96 Oxygen Delivery Oxygen Flow Rate Fraction of Inspired Oxygen 10/13/25 20:00 10/13/25 20:00 10/13/25 22:00 Temperature Pulse Rate 109 H 110 H Respiratory Rate Blood Pressure Pulse Oximetry 92 Oxygen Delivery Nasal Cannula Oxygen Flow Rate 4 Fraction of Inspired Oxygen 10/13/25 23:35 10/13/25 23:47 10/14/25 00:00 Temperature 36.4 C Pulse Rate 109 H Respiratory Rate 20 Blood Pressure 112/68 Pulse Oximetry 94 96 96 Oxygen Delivery High Flow Nasal Cannula Nasal Cannula Oxygen Flow Rate 4 4 Fraction of Inspired Oxygen 10/14/25 00:00 10/14/25 02:00 10/14/25 04:00 Temperature 36.4 C Pulse Rate 109 H 111 H 108 H Respiratory Rate 23 H Blood Pressure 110/63 Pulse Oximetry 94 Oxygen Delivery Oxygen Flow Rate Fraction of Inspired Oxygen 10/14/25 04:00 10/14/25 04:00 10/14/25 06:00 Temperature Pulse Rate 109 H 108 H Respiratory Rate Blood Pressure Pulse Oximetry 94 Oxygen Delivery Nasal Cannula Oxygen Flow Rate 4 Fraction of Inspired Oxygen 10/14/25 08:00 10/14/25 09:23 10/14/25 12:00 Temperature 35.7 C L 36.3 C L Pulse Rate 108 H 110 H 111 H Respiratory Rate 16 24 H 28 H Blood Pressure 122/62 119/79 Pulse Oximetry 97 93 97 Oxygen Delivery High Flow Nasal Cannula Oxygen Flow Rate 4 Fraction of Inspired Oxygen 36 Intake/Output Intake/Output: Intake & Output 10/11/25 10/12/25 10/13/2507/25 23:59 23:59 23:59 23:59 Intake Total 1906 819.9 151 250 Output Total 1130 850 230 525 Balance 776 -30.1 -79 -275 Meds/Results Medications: Active Medications Generic Name Dose Route Start Last Admin Trade Name Freq PRN Reason Stop Dose Admin Aspirin 81 mg 10/04/25 17:50 10/13/25 11:08 Aspirin 81 Mg Chewable Tablet PO Not Given DAILY@0800 [facility] Carvedilol 3.125 mg 10/14/25 09:00 Carvedilol 3.125 Mg Tablet PO Q12H VIKA Dextrose 12.5 gm 10/04/25 13:16 Dextrose 50% 25 Gm/50 Ml Syringe IV PUSH PRN PRN Hypoglycemia Protocol Ferrous Sulfate 325 mg 10/14/25 09:00 Ferrous Sulfate 325 Mg Tablet PO 11/13/25 08:59 DAILY VIKA Glucagon 1 mg 10/04/25 13:16 Glucagon For Inj 1 Mg Vial IM PRN PRN Hypoglycemia Protocol Glucose 15 gm 10/04/25 13:16 Glucose Oral Gel 15 Gm Of Glucse In 37.5 Gm Tube PO PRN PRN Hypoglycemia Protocol Dextrose 1,000 mls @ 100 mls/hr 10/04/25 13:16 Dextrose 5% 1,000 Ml IVPB PRN PRN Hypoglycemia Protocol Ceftriaxone Sodium 2 gm/ 100 mls @ 200 mls/hr 10/11/25 08:45 10/14/25 10:00 Sodium Chloride IVPB 200 mls/hr DAILY VIKA Administration Insulin Aspart 2 - 5 units 10/14/25 12:00 10/14/25 12:21 Insulin Aspart (*Bkc) 100 Units/Ml SUB-Q Not Given TIDWM [facility] Protocol Insulin Aspart 1 - 2 units 10/14/25 21:00 Insulin Aspart (*Bkc) 100 Units/Ml SUB-Q HS [facility] Protocol Insulin Glargine 28 units 10/14/25 21:00 Insulin Glargine (*Bkc) 100 Units/Ml SUB-Q HS [facility] Ipratropium [place] 0.5 mg 10/07/25 07:43 10/12/25 20:10 Ipratropium Br 0.02% Inh Soln 0.5 Mg/2.5 Ml Vial INHALATION 0.5 mg Q6HRT PRN Administration Wheezing Lactulose 20 gm 10/11/25 09:00 10/13/25 11:08 Lactulose 20 Gm/30 Ml Udc FEED TUBE Not Given DAILY [facility]KA Levalbuterol HCl 0.63 mg 10/07/25 07:44 10/13/25 07:41 Levalbuterol Neb 1.25 Mg/3 Ml INHALATION 0.63 mg Q6HRT PRN Administration Wheezing Ondansetron HCl 4 mg 10/13/25 03:50 Ondansetron Inj 4 Mg/2 Ml Vial IV PUSH Q4H PRN Nausea And Vomiting Pantoprazole Sodium 40 mg 10/04/25 21:00 10/14/25 10:00 Pantoprazole Sodium Iv 40 Mg Vial IV PUSH 40 mg Q12HR VIKA Administration Potassium Chloride 20 meq 10/14/25 09:00 Potassium Chloride 20 Meq Er Tablet PO DAILY VIKA Thiamine HCl 100 mg 10/05/25 09:00 10/14/25 10:00 Thiamine Hcl 200 Mg/2 Ml Vial IV PUSH 100 mg QAM VIKA Administration Radiology Results: ITS Impressions Head CT 10/04/25 07:09 IMPRESSION: 1. No acute intracranial findings. Chest/Abdomen/Pelvis CT 10/04/25 07:26 IMPRESSION: CHEST- 1. Interstitial pulmonary edema and small right pleural effusion. 2. Superimposed pneumonitis or interstitial lung disease not excluded. ABDOMEN/PELVIS- 1. Colonic hepatic flexure wall thickening. Colitis and/or malignancy. 2. Additional findings as above. Renal Ultrasound 10/05/25 13:44 Impression: 1: Unremarkable renal ultrasound. No stones, masses or hydronephrosis. 2: Splenomegaly. 3: Ascites. Chest X-Ray 10/13/25 09:40 IMPRESSION: 1. Worsening pulmonary edema and/or multifocal airspace disease. 2. Persistent significant bibasilar atelectasis and/or airspace disease. 3. Pleural effusions not excluded. Labs Labs: Laboratory Results - last 24 hr 10/13/25 10/13/25 10/13/25 12:59 18:05 23:56 WBC RBC Hgb Hct MCV MCH MCHC RDW Plt Count MPV Immature Gran % (Auto) Neut % (Auto) Lymph % (Auto) [place] % (Auto) Eos % (Auto) Baso % (Auto) Lymph # (Auto) [place] # (Auto) Eos # (Auto) Baso # (Auto) Abs Immat Gran (auto) Absolute Neuts (auto) Absolute Nucleated RBC Nucleated RBC % % Immature Plt Fraction Sodium Potassium Chloride Carbon Dioxide Anion Gap BUN Creatinine Estim Creat Clear Calc Estimated GFR Glucose POC Capillary Glucose 147 H 152 H 150 H Calcium Phosphorus Magnesium Total Bilirubin AST ALT Alkaline Phosphatase Total Protein Albumin 10/14/25 10/14/25 04:16 11:23 WBC 6.5 RBC 2.13 L Hgb 7.4 L Hct 24.3 L MCV 114.1 H MCH 34.7 H MCHC 30.5 L RDW 16.3 H Plt Count 56 L MPV 10.3 Immature Gran % (Auto) 2.0 H Neut % (Auto) 73.3 H Lymph % (Auto) 12.3 L [place] % (Auto) 7.9 Eos % (Auto) 3.9 Baso % (Auto) 0.6 Lymph # (Auto) 0.80 L [place] # (Auto) 0.5 Eos # (Auto) 0.3 Baso # (Auto) 0.0 Abs Immat Gran (auto) 0.13 H Absolute Neuts (auto) 4.8 Absolute Nucleated RBC 0.030 H Nucleated RBC % 0.5 H % Immature Plt Fraction 2.8 Sodium 149 H Potassium 4.0 Chloride 115 H Carbon Dioxide 19 L Anion Gap 15 H BUN 115 H* D Creatinine 5.03 H Estim Creat Clear Calc 23 Estimated GFR 12 L Glucose 134 H POC Capillary Glucose 141 H Calcium 10.1 Phosphorus 6.3 H Magnesium 2.7 H Total Bilirubin 6.7 H AST 49 ALT 21 Alkaline Phosphatase 74 Total Protein 9.0 H Albumin 4.4
[2025-10-14] MEDS: BUMETANIDE INJ 1 MG/4 ML VIAL 2 MG IV PUSH (15:23)
--- NOTE | 2025-10-14 17:02 | P.PNIM_ITS ---
Assessment and Plan Assessment and Plan (1) Acute respiratory failure: Code(s): J96.00 - Acute respiratory failure, unspecified whether with hypoxia or hypercapnia Status: Acute Assessment and Plan: 10/04: Patient presented the ED via EMS with complains of generalized weakness, fevers, shortness of breath and fever. When EMS arrived to his house he was found on the ground, unable to get up off the floor. Patient's O2 sats were in the 80s on room air. Patient was placed on supplemental oxygen. In the ED patient was awake, alert, oriented was able to answer questions. O2 sats were improved but he was hypotensive, once he was given IV fluids per sepsis protocol he was more short of breath and was intubated -10/04: Intubated in the ER for impending respiratory failure likely related to CHF Vent management per ICU (2) Septic shock: Code(s): A41.9 - Sepsis, unspecified organism; R65.21 - Severe sepsis with septic shock Status: Acute Assessment and Plan: Patient with hypotension, likely related to pneumonia, possible lower abdomen cellulitis as seen on the CT scan. Could be related to heart failure -10/04: patient received 3.5 L IV fluid bolus in the ER, despite which his blood pressures remain low, is right-sided IJ central line was inserted, patient started on Levophed -upon arrival to the ICU patient was on Levophed 20 mcg/min with systolic blood pressures in the 80s, I advised the bedside RN to go up on the Levophed and ordered vasopressin -will maintain MAP > 65 mmHg or SBP > 100 mmHg -patient had does have a provided pulse pressure -will obtain troponin -will repeat echocardiogram echocardiogram -lactic acid was 5.9 on admission, repeat was 4.2 -will trend lactic acid -patient was given 1 dose of ceftriaxone and azithromycin in the ER -given history of alcoholism, cocaine abuse started on cefepime, vancomycin and azithromycin (10/04) -10/04: Blood cultures have been obtained -10/04: Urine cultures obtained and pain -10/04: sputum culture obtained and pending -10/04: Obtain urine Legionella and strep pneumo antigen, pending -chest x-ray shows Pulmonary vascular congestion, hold additional IV fluid -receiving albumin for intravascular volume expansion 10/05: Patient has multi-system organ failure, 01/16/2025: Echocardiogram Summary 1. Left ventricular chamber dimension is normal. 2. Left ventricular systolic function is normal, estimated at 65-70%. 3. There is mildly increased left ventricular wall thickness. 4. The left ventricular diastolic function is grade I diastolic dysfunction. 5. Right ventricular systolic function is normal. 6. Left atrial chamber dimension is moderately enlarged. 7. Right atrial chamber dimension is moderately enlarged. 8. There is moderate aortic valve calcification. 9. There is moderate to severe aortic valve stenosis with a peak velocity of 407 cm/s, mean gradient of 43 mmHg, and aortic valve area of 1.2 cm2. 10. There is mild aortic valve regurgitation. 11. There is mild to moderate tricuspid valve regurgitation. 12. Pulmonary hypertension, estimated pulmonary arterial systolic pressure is 48 mmHg. (3) MARIO (acute kidney injury): Code(s): N17.9 - Acute kidney failure, unspecified Status: Acute Assessment and Plan: Acute kidney injury, creatinine 1.83 on admission, (1.87-2.19 in January of 2025, prior to that patient's creatinine was 1.10-1.20 in March of 2023) -patient received 3.5 L of IV fluid bolus in the ER -will continue to monitor renal function, electrolytes and urine output -albumin for intravascular volume expansion, hold additional IV fluids due to pulmonary vascular congestion on chest x-ray -10/05: Worsening creatinine, decreased urine output, likely related to rhabdomyolysis, CK levels trending down, continue maintenance IV fluid -nephrology consult Renal ultrasound with no hydronephrosis Creatinine continues to incline. Nephrology following. Poor urine output On Lasix 80 mg IV b.i.d. (4) Acute CHF: Code(s): I50.9 - Heart failure, unspecified Status: Acute Assessment and Plan: Patient has history of CHF, he does take furosemide at home, echocardiogram as above -chest x-ray shows pulmonary vascular congestion after receiving IV fluid -repeat echo 10/05/2025: EF 55-60% abnormal diastolic function severe aortic stenosis [id number] aortic regurgitation mild MR [id number] TR moderate pulmonary hypertension (5) DM2 (diabetes mellitus, type 2): Code(s): E11.9 - Type 2 diabetes mellitus without complications Status: Chronic Assessment and Plan: Accu-Cheks and sliding scale insulin -patient does take Lantus at home, will restart if needed (6) Thrombocytopenia: Code(s): D69.6 - Thrombocytopenia, unspecified Status: Acute Assessment and Plan: Chronic thrombocytopenia could be related to cirrhosis, alcohol use -patient was evaluated by Oncology on 01/28/2023 -continue to monitor, -will transfuse as needed Ultrasound with splenomegaly and ascites noted (7) Cirrhosis: Code(s): K74.60 - Unspecified cirrhosis of liver Status: Acute Assessment and Plan: CT scan of the abdomen and pelvis showed spleen enlargement and cirrhosis -patient also has anasarca -elevated bilirubin ultrasound with splenomegaly and ascites noted (8) Anasarca: Code(s): R60.1 - Generalized edema Status: Acute Assessment and Plan: Likely related to cirrhosis (9) GI bleed: Code(s): K92.2 - Gastrointestinal hemorrhage, unspecified Status: Acute Assessment and Plan: OG tube has blood draining, could be related to trauma secondary to OG tube placement or variceal bleed or gastritis as patient has cirrhosis -Protonix IV q.12 hours -appreciate GI evaluation, no more GI bleeding noted from the OG tube -patient does have cirrhosis, MELD score of 26 (10) Anemia: Code(s): D64.9 - Anemia, unspecified Status: Acute Assessment and Plan: Patient also has anemia with hemoglobin of 10.7 (which is close to his baseline) -will continue to monitor, transfuse for hemoglobin < 7.0 (11) Aortic stenosis: Code(s): I35.0 - Nonrheumatic aortic (valve) stenosis Status: Acute Assessment and Plan: Moderate to severe aortic valve stenosis with mean gradient of 43 mmHg and aortic valve area of 1.2 cm2 -caution with IV fluids -repeat echocardiogram has been ordered (12) NSTEMI (non-ST elevated myocardial infarction): Code(s): I21.4 - Non-ST elevation (NSTEMI) myocardial infarction Status: Acute Assessment and Plan: 10/04: Troponins were 4.720, 8.720 and 13.00. -cardiology was consulted, recommended starting heparin infusion -10/05: Heparin infusion was discontinued as this was thought to be secondary to type 2 myocardial infarction secondary to anemia, hypotension, respiratory failure and septic shock. Plan patient with acute respiratory failure was intubated upon arrival patient with persistent a flutter with RVR, acute on chronic diastolic heart failure, most likely patient was volume overloaded and went to respiratory failure, patient was also treated for sepsis and shock due to pneumonia, patient was extubates and out of ICU, patient remains somnolent and not providing any history or ROS, his present. patient has difficulty swallowing, will have speech pathalogist work with the patient, recommending MBS study scheduled for tomorrow. will CPM and monitor. DVT prophylaxis: SCDs, no chemoprophylaxis due to blood in OG tube likely related to GI bleeding and thrombocytopenia Stress ulcer prophylaxis: Protonix IV q.12 hours Nutrition: NPO for now Code Status: Full code Subjective Date/time seen: 10/14/25 17:02 Interval history: patient with acute respiratory failure was intubated upon arrival patient with persistent a flutter with RVR, acute on chronic diastolic heart failure, most likely patient was volume overloaded and went to respiratory failure, patient was also treated for sepsis and shock due to pneumonia, patient was extubates and out of ICU, patient remains somnolent and not providing any history or ROS, his present. patient has difficulty swallowing, will have speech pathalogist work with the patient, recommending MBS study scheduled for tomorrow. will CPM and monitor. Review of Systems Review of Systems: ROS unobtainable: Yes unobtainable due to mental status Exam Narrative: Morbidly obese Patient is comfortable, NAD HEENT: eyes are clear and none icteric LUNGS:CTA HEART: RR S1S2 ABD: Morbidly obese distended Lower extremities: no edema SKIN: nonjaundiced Neuro: grossly intact. Objective Data Vital Signs Vital Signs: Vital Signs - 24 hr 10/13/25 18:00 10/13/25 20:00 10/13/25 20:00 Temperature 36.5 C Pulse Rate 109 H 109 H 109 H Respiratory Rate 18 Blood Pressure 113/69 Pulse Oximetry 96 Oxygen Delivery Oxygen Flow Rate Fraction of Inspired Oxygen 10/13/25 20:00 10/13/25 22:00 10/13/25 23:35 Temperature Pulse Rate 110 H Respiratory Rate Blood Pressure Pulse Oximetry 92 94 Oxygen Delivery Nasal Cannula High Flow Nasal Cannula Oxygen Flow Rate 4 4 Fraction of Inspired Oxygen 10/13/25 23:47 10/14/25 00:00 10/14/25 00:00 Temperature 36.4 C Pulse Rate 109 H 109 H Respiratory Rate 20 Blood Pressure 112/68 Pulse Oximetry 96 96 Oxygen Delivery Nasal Cannula Oxygen Flow Rate 4 Fraction of Inspired Oxygen 10/14/25 02:00 10/14/25 04:00 10/14/25 04:00 Temperature 36.4 C Pulse Rate 111 H 108 H Respiratory Rate 23 H Blood Pressure 110/63 Pulse Oximetry 94 94 Oxygen Delivery Nasal Cannula Oxygen Flow Rate 4 Fraction of Inspired Oxygen 10/14/25 04:00 10/14/25 06:00 10/14/25 08:00 Temperature 35.7 C L Pulse Rate 109 H 108 H 108 H Respiratory Rate 16 Blood Pressure 122/62 Pulse Oximetry 97 Oxygen Delivery Oxygen Flow Rate Fraction of Inspired Oxygen 10/14/25 09:23 10/14/25 12:00 10/14/25 16:00 Temperature 36.3 C L 36.5 C Pulse Rate 110 H 111 H 107 H Respiratory Rate 24 H 28 H 28 H Blood Pressure 119/79 117/76 Pulse Oximetry 93 97 97 Oxygen Delivery High Flow Nasal Cannula Oxygen Flow Rate 4 Fraction of Inspired Oxygen 36 Intake/Output Intake/Output: Intake & Output 10/11/25 10/12/25 10/13/25 10/14/25 23:59 23:59 23:59 23:59 Intake Total 1906 819.9 151 350 Output Total 1130 850 230 525 Balance 776 -30.1 -79 -175 Meds/Results Medications: Active Medications Generic Name Dose Route Start Last Admin Trade Name Freq PRN Reason Stop Dose Admin Aspirin 81 mg 10/04/25 17:50 10/14/25 08:30 Aspirin 81 Mg Chewable Tablet PO Not Given DAILY@0800 [facility] Carvedilol 3.125 mg 10/14/25 09:00 10/14/25 08:30 Carvedilol 3.125 Mg Tablet PO Not Given Q12H [facility] Dextrose 12.5 gm 10/04/25 13:16 Dextrose 50% 25 Gm/50 Ml Syringe IV PUSH PRN PRN Hypoglycemia Protocol Ferrous Sulfate 325 mg 10/14/25 09:00 10/14/25 08:30 Ferrous Sulfate 325 Mg Tablet PO 11/13/25 08:59 Not Given DAILY [facility] Glucagon 1 mg 10/04/25 13:16 Glucagon For Inj 1 Mg Vial IM PRN PRN Hypoglycemia Protocol Glucose 15 gm 10/04/25 13:16 Glucose Oral Gel 15 Gm Of Glucse In 37.5 Gm Tube PO PRN PRN Hypoglycemia Protocol Dextrose 1,000 mls @ 100 mls/hr 10/04/25 13:16 Dextrose 5% 1,000 Ml IVPB PRN PRN Hypoglycemia Protocol Ceftriaxone Sodium 2 gm/ 100 mls @ 200 mls/hr 10/11/25 08:45 10/14/25 10:30 Sodium Chloride IVPB Infused DAILY VIKA Infusion Insulin Aspart 2 - 5 units 10/14/25 18:00 Insulin Aspart (*Bkc) 100 Units/Ml SUB-Q Q6HR [facility] Protocol Insulin Glargine 28 units 10/14/25 21:00 Insulin Glargine (*Bkc) 100 Units/Ml SUB-Q HS [facility] Ipratropium [place] 0.5 mg 10/07/25 07:43 10/12/25 20:10 Ipratropium Br 0.02% Inh Soln 0.5 Mg/2.5 Ml Vial INHALATION 0.5 mg Q6HRT PRN Administration Wheezing Lactulose 20 gm 10/11/25 09:00 10/14/25 08:31 Lactulose 20 Gm/30 Ml Udc FEED TUBE Not Given DAILY [facility]KA Levalbuterol HCl 0.63 mg 10/07/25 07:44 10/13/25 07:41 Levalbuterol Neb 1.25 Mg/3 Ml INHALATION 0.63 mg Q6HRT PRN Administration Wheezing Ondansetron HCl 4 mg 10/13/25 03:50 Ondansetron Inj 4 Mg/2 Ml Vial IV PUSH Q4H PRN Nausea And Vomiting Pantoprazole Sodium 40 mg 10/04/25 21:00 10/14/25 10:00 Pantoprazole Sodium Iv 40 Mg Vial IV PUSH 40 mg Q12HR VIKA Administration Potassium Chloride 20 meq 10/14/25 09:00 10/14/25 08:31 Potassium Chloride 20 Meq Er Tablet PO Not Given DAILY [facility] Thiamine HCl 100 mg 10/05/25 09:00 10/14/25 10:00 Thiamine Hcl 200 Mg/2 Ml Vial IV PUSH 100 mg QAM VIKA Administration Radiology Results: ITS Impressions Head CT 10/04/25 07:09 IMPRESSION: 1. No acute intracranial findings. Chest/Abdomen/Pelvis CT 10/04/25 07:26 IMPRESSION: CHEST- 1. Interstitial pulmonary edema and small right pleural effusion. 2. Superimposed pneumonitis or interstitial lung disease not excluded. ABDOMEN/PELVIS- 1. Colonic hepatic flexure wall thickening. Colitis and/or malignancy. 2. Additional findings as above. Renal Ultrasound 10/05/25 13:44 Impression: 1: Unremarkable renal ultrasound. No stones, masses or hydronephrosis. 2: Splenomegaly. 3: Ascites. Chest X-Ray 10/13/25 09:40 IMPRESSION: 1. Worsening pulmonary edema and/or multifocal airspace disease. 2. Persistent significant bibasilar atelectasis and/or airspace disease. 3. Pleural effusions not excluded. Labs Labs: Laboratory Results - last 24 hr 10/13/25 10/13/25 10/14/25 18:05 23:56 04:16 WBC 6.5 RBC 2.13 L Hgb 7.4 L Hct 24.3 L MCV 114.1 H MCH 34.7 H MCHC 30.5 L RDW 16.3 H Plt Count 56 L MPV 10.3 Immature Gran % (Auto) 2.0 H Neut % (Auto) 73.3 H Lymph % (Auto) 12.3 L [place] % (Auto) 7.9 Eos % (Auto) 3.9 Baso % (Auto) 0.6 Lymph # (Auto) 0.80 L [place] # (Auto) 0.5 Eos # (Auto) 0.3 Baso # (Auto) 0.0 Abs Immat Gran (auto) 0.13 H Absolute Neuts (auto) 4.8 Absolute Nucleated RBC 0.030 H Nucleated RBC % 0.5 H % Immature Plt Fraction 2.8 Sodium 149 H Potassium 4.0 Chloride 115 H Carbon Dioxide 19 L Anion Gap 15 H BUN 115 H* D Creatinine 5.03 H Estim Creat Clear Calc 23 Estimated GFR 12 L Glucose 134 H POC Capillary Glucose 152 H 150 H Calcium 10.1 Phosphorus 6.3 H Magnesium 2.7 H Total Bilirubin 6.7 H AST 49 ALT 21 Alkaline Phosphatase 74 Total Protein 9.0 H Albumin 4.4 10/14/25 11:23 WBC RBC Hgb Hct MCV MCH MCHC RDW Plt Count MPV Immature Gran % (Auto) Neut % (Auto) Lymph % (Auto) [place] % (Auto) Eos % (Auto) Baso % (Auto) Lymph # (Auto) [place] # (Auto) Eos # (Auto) Baso # (Auto) Abs Immat Gran (auto) Absolute Neuts (auto) Absolute Nucleated RBC Nucleated RBC % % Immature Plt Fraction Sodium Potassium Chloride Carbon Dioxide Anion Gap BUN Creatinine Estim Creat Clear Calc Estimated GFR Glucose POC Capillary Glucose 141 H Calcium Phosphorus Magnesium Total Bilirubin AST ALT Alkaline Phosphatase Total Protein Albumin
[2025-10-15] VITALS (15 sets, daily range): BP systolic 102–121; BP diastolic 38–71; PULSE 104–120; RESP 20–28; TEMP 36.4–37.4; O2SAT 90–98
[2025-10-15 05:30] LABS: Hematocrit 25.6 % (42.0-52.0); Hemoglobin 7.8 g/dL (14.0-18.0); Mean Corpuscular HGB Conc 30.5 g/dl (32-36); Mean Corpuscular Hemoglobin 34.8 pg (26-34); Mean Corpuscular Volume 114.3 fl (80-100); Platelet Count Result 65 k/mm3 (150-375); Red Blood Count 2.24 M/mm3 (4.6-6.20); White Blood Count 9.3 K/mm3 (4.5-10.0)
[2025-10-15 06:09] LABS: Albumin Level 4.5 g/dL (3.5-5.1); Anion Gap 20 mmol/L (4-12); Blood Urea Nitrogen 119 mg/dL (9-20); Calcium 10.1 mg/dL (8.4-10.2); Carbon Dioxide 17 mmol/L (22-30); Chloride 115 mmol/L (98-107); Estimated CRCL calculation 20 ml/min; Estimated Glomerular Filt Rate 10; Glucose 137 mg/dL (65-110); Magnesium 2.7 mg/dL (1.6-2.3); Potassium 4.2 mmol/L (3.4-5.0); Sodium 152 mmol/L (137-145)
[2025-10-15] MEDS: cefTRIAXone 2 GM in SODIUM CHLORIDE 0.9% IV 100 ML 200 ML IVPB (08:31)
[2025-10-15] MEDS: THIAMINE HCL 200 MG/2 ML VIAL 100 MG IV PUSH (08:32)
[2025-10-15] MEDS: PANTOPRAZOLE SODIUM IV 40 MG VIAL IV PUSH (08:33)
--- NOTE | 2025-10-15 09:53 | PM.PNNEP ---
Progress Note: A&P Assessment and Plan (1) Acute kidney injury: Code(s): N17.9 - Acute kidney failure, unspecified Status: Acute Assessment and Plan: as noted by labs on 10/05 (creatinine up to 2.87mg/dL) admission creatinine at baseline complicated by diminished urine output and volume overload however, somewhat responsive to diuretics suspect multifactorial etiology: hemodynamic instability/shock infection/sepsis hypoxia cocaine use CHF rhabdomyolysis NSTEMI pre renal factors other(?) evaluation to date noted: renal ultrasound shows normal kidneys CK was elevated but trending down (although was high enough to cause damage to the kidneys) UA shows blood protein and red cells urine electrolytes (FeNA & FeUrea) reflect a pre renal state urine eosinophils negative moderate proteinuria IV diuretics PRN still 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 repeat trial of IV bumex today follow trend of repeat labs and UOP (2) Stage 3b chronic kidney disease: Code(s): N18.32 - Chronic kidney disease, stage 3b Status: Chronic Assessment and Plan: creatinine 1.87mg/dL ~ 8 months ago on hospital discharge was fluctuating 1.8 - 2.2mg/dL in the context of IV diuresis in January 2025 prior to that, creatinine was ~ 1.1 - 1.2 in March of 2023 presumably due to combination of diuretic use for CHF, diabetes, and hypertension +/- vascular disease (3) Septic shock: Code(s): A41.9 - Sepsis, unspecified organism; R65.21 - Severe sepsis with septic shock Status: Acute Assessment and Plan: presented with hypotension unresponsive to IVF resuscitation s/p 3.5L IVFs with no improvement in blood pressure s/p RIJ central line placement and initiation of vasopressor therapy suspected source include pneumonia, lower abdominal wall cellulitis, and/or heart failure follow culture data (blood, sputum, and urine) 10/04 sputum culture with Pseudomonas and Staph aureus 10/04 blood cultures with Streptococcus dysgalactiae lactic acid has normalized weaned off vasopressor therapy on antibiotics (4) Acute respiratory failure: Code(s): J96.00 - Acute respiratory failure, unspecified whether with hypoxia or hypercapnia Status: Acute Assessment and Plan: extubated on 10/12 intubated in ER for impending respiratory failure noted hypoxia worsening SOB with IVF resuscitation decline in respiratory status felt to be secondary to CHF +/- pneumonia wean supplemental oxygen as tolerated follow respiratory status (5) Acute CHF: Code(s): I50.9 - Heart failure, unspecified Status: Acute Assessment and Plan: known history admission CXR with pulmonary vascular congestion last Echo (01/16/25) noted: left ventricular systolic function is normal, estimated at 65 - 70% left ventricular diastolic function is grade I diastolic dysfunction moderate to severe aortic valve stenosis with a peak velocity of 407 cm/s, mean gradient of 43 mmHg, and aortic valve area of 1.2 cm2 mild aortic valve regurgitation mild to moderate tricuspid valve regurgitation pulmonary hypertension, estimated pulmonary arterial systolic pressure is 48 mmHg repeat Echo (10/05/25) reviewed: left ventricular systolic function is normal, estimated at 55 - 60% left ventricular diastolic function is abnormal severe aortic valve stenosis with a peak velocity of 435 cm/s, mean gradient of 43 mmHg, and aortic valve area of 0.9 cm2 mild to moderate aortic valve regurgitation mild mitral valve regurgitation mild to moderate tricuspid valve regurgitation moderate pulmonary hypertension, estimated pulmonary arterial systolic pressure is 56 mmHg trace pulmonic regurgitation with better hemodynamics trial dose of IV bumex today follow I/Os, daily weights, and respiratory status Cardiology following (6) Anasarca: Code(s): R60.1 - Generalized edema Status: Acute Assessment and Plan: likely a combination of CHF , MARIO, and liver cirrhosis/hypoalbuminemia Echo as noted (see #5) re-attempt diuretics today (7) Cirrhosis: Code(s): K74.60 - Unspecified cirrhosis of liver Status: Acute Assessment and Plan: as noted by CT imaging: noted spleen enlargement and cirrhosis also with anasarca trend bilirubin and LFTs on lactulose (ammonia level has normalized) GI following (8) Anemia: Code(s): D64.9 - Anemia, unspecified Status: Acute Assessment and Plan: as noted concern for GI loss given bleeding noted from OG tube this appears to have resolved suspect related to MARIO, CKD, and liver disease/cirrhosis PRBC transfusion per protocol consider PATRICIA given #1 and #2 (9) Thrombocytopenia: Code(s): D69.6 - Thrombocytopenia, unspecified Status: Acute Assessment and Plan: chronic issue saw Heme/Onc in the past and this is felt to be related to cirrhosis and alcohol use platelet transfusion PRN (10) DM2 (diabetes mellitus, type 2): Code(s): E11.9 - Type 2 diabetes mellitus without complications Status: Chronic Assessment and Plan: follow accu-cheks glycemic control per hospitalist Another long and extensive discussion (> 20 minutes) with patient and his today with regard to his deteriorating renal function -- he is not making much urine with IV diuretics and he still has evidence of volume overload by exam and imaging studies in conjunction with a metabolic acidosis and significant azotemia; I informed both of them that I will re-attempt high dose diuretics today but if his labs are worse by tomorrow, I think we need to proceed with renal replacement therapy/dialysis. The both seemed to voice understanding. Will continue to follow. Subjective Date/time seen: 10/15/25 09:53 Interval history: Follow-up for acute kidney injury/acute renal failure on chronic kidney disease. Renal function/creatinine continues to slowly worsen as noted by trend of labs; no significant response in urine output with IV bumex yesterday; mentation seems to be doing a bit better at the time of my visit; discussed situation with at bedside. Exam Narrative: General: WD/WN male in NAD Heart: normal S1 and S2; no rub Lungs: coarse breath sounds Abdomen: soft, nontender, nondistended, positive bowel sounds Extremities: no cyanosis or clubbing; 1+ edema Skin: chronic venous stasis/skin changes apparent Objective Data Vital Signs Vital Signs: Vital Signs Temp Pulse Resp BP Pulse Ox O2 Del Method O2 Flow Rate 10/15/25 08:00 111 H 10/15/25 08:00 91 High Flow Nasal Cannula 4 10/15/25 08:00 98.2 F 114 H 26 H 102/38 L 90 10/15/25 06:00 119 H 10/15/25 05:11 97.8 F 120 H 22 H 106/62 92 10/15/25 04:00 98 High Flow Nasal Cannula 4 10/15/25 04:00 114 H 10/15/25 02:00 108 H 10/15/25 00:18 97.7 F 107 H 22 H 108/58 L 95 10/15/25 00:00 98 High Flow Nasal Cannula 4 10/15/25 00:00 106 H 10/14/25 22:00 107 H 10/14/25 20:29 97.6 F 109 H 23 H 110/62 98 10/14/25 20:00 107 H 10/14/25 20:00 98 High Flow Nasal Cannula 4 10/14/25 18:00 108 H Intake/Output Intake/Output: Intake & Output 10/12/25 10/13/25 10/14/25 10/15/25 23:59 23:59 23:59 23:59 Intake Total 819.9 647 666 6072 Output Total 850 230 775 650 Balance -30.1 -79 -305 890 Meds/Results Medications: Active Medications Generic Name Dose Route Start Last Admin Trade Name Freq PRN Reason Stop Dose Admin Aspirin 81 mg 10/04/25 17:50 10/15/25 15:58 Aspirin 81 Mg Chewable Tablet PO 81 mg DAILY@0800 VIKA Administration Bumetanide 2 mg 10/15/25 21:30 Bumetanide Inj 1 Mg/4 Ml Vial IV PUSH 10/15/25 21:31 ONCE ONE Carvedilol 3.125 mg 10/14/25 09:00 10/15/25 10:34 Carvedilol 3.125 Mg Tablet PO Not Given Q12H [facility] Dextrose 12.5 gm 10/04/25 13:16 Dextrose 50% 25 Gm/50 Ml Syringe IV PUSH PRN PRN Hypoglycemia Protocol Ferrous Sulfate 325 mg 10/14/25 09:00 10/15/25 15:58 Ferrous Sulfate 325 Mg Tablet PO 11/13/25 08:59 325 mg DAILY VIKA Administration Glucagon 1 mg 10/04/25 13:16 Glucagon For Inj 1 Mg Vial IM PRN PRN Hypoglycemia Protocol Glucose 15 gm 10/04/25 13:16 Glucose Oral Gel 15 Gm Of Glucse In 37.5 Gm Tube PO PRN PRN Hypoglycemia Protocol Dextrose 1,000 mls @ 100 mls/hr 10/04/25 13:16 Dextrose 5% 1,000 Ml IVPB PRN PRN Hypoglycemia Protocol Insulin Aspart 2 - 5 units 10/14/25 18:00 10/15/25 13:27 Insulin Aspart (*Bkc) 100 Units/Ml SUB-Q Not Given Q6HR [facility] Protocol Insulin Glargine 28 units 10/14/25 21:00 Insulin Glargine (*Bkc) 100 Units/Ml SUB-Q On Hold: 10/14/25 21:00 HS [facility] Ipratropium [place] 0.5 mg 10/07/25 07:43 10/12/25 20:10 Ipratropium Br 0.02% Inh Soln 0.5 Mg/2.5 Ml Vial INHALATION 0.5 mg Q6HRT PRN Administration Wheezing Lactulose 20 gm 10/16/25 09:00 Lactulose 20 Gm/30 Ml Udc PO QAM VIKA Levalbuterol HCl 0.63 mg 10/07/25 07:44 10/13/25 07:41 Levalbuterol Neb 1.25 Mg/3 Ml INHALATION 0.63 mg Q6HRT PRN Administration Wheezing Ondansetron HCl 4 mg 10/13/25 03:50 Ondansetron Inj 4 Mg/2 Ml Vial IV PUSH Q4H PRN Nausea And Vomiting Pantoprazole Sodium 40 mg 10/04/25 21:00 10/15/25 08:33 Pantoprazole Sodium Iv 40 Mg Vial IV PUSH 40 mg Q12HR VIKA Administration Potassium Chloride 20 meq 10/14/25 09:00 10/15/25 15:57 Potassium Chloride 20 Meq Er Tablet PO 20 meq DAILY VIKA Administration Thiamine HCl 100 mg 10/05/25 09:00 10/15/25 08:32 Thiamine Hcl 200 Mg/2 Ml Vial IV PUSH 100 mg QAM VIKA Administration Radiology Results: ITS Impressions Head CT 10/04/25 07:09 IMPRESSION: 1. No acute intracranial findings. Chest/Abdomen/Pelvis CT 10/04/25 07:26 IMPRESSION: CHEST- 1. Interstitial pulmonary edema and small right pleural effusion. 2. Superimposed pneumonitis or interstitial lung disease not excluded. ABDOMEN/PELVIS- 1. Colonic hepatic flexure wall thickening. Colitis and/or malignancy. 2. Additional findings as above. Renal Ultrasound 10/05/25 13:44 Impression: 1: Unremarkable renal ultrasound. No stones, masses or hydronephrosis. 2: Splenomegaly. 3: Ascites. Chest X-Ray 10/13/25 09:40 IMPRESSION: 1. Worsening pulmonary edema and/or multifocal airspace disease. 2. Persistent significant bibasilar atelectasis and/or airspace disease. 3. Pleural effusions not excluded. Labs Labs: Laboratory Tests 10/15/25 05:22 10/15/25 05:22 Calcium 10.1 Phosphorus 6.7 H Magnesium 2.7 H Albumin 4.5 Microbiology 10/11/25 09:02 Blood Blood Culture - Preliminary 10/11/25 08:48 Blood Blood Culture - Preliminary Quality trial of IV bumex 2mg x 1
--- NOTE | 2025-10-15 09:53 | P.PNNP_ITS ---
Progress Note: A&P Assessment and Plan (1) Acute kidney injury: Code(s): N17.9 - Acute kidney failure, unspecified Status: Acute Assessment and Plan: * as noted by labs on 10/05 (creatinine up to 2.87mg/dL) * admission creatinine at baseline * complicated by diminished urine output and volume overload * however, somewhat responsive to diuretics * suspect multifactorial etiology: * hemodynamic instability/shock * infection/sepsis * hypoxia * cocaine use * CHF * rhabdomyolysis * NSTEMI * pre renal factors * other(?) * evaluation to date noted: * renal ultrasound shows normal kidneys * CK was elevated but trending down (although was high enough to cause damage to the kidneys) * UA shows blood protein and red cells * urine electrolytes (FeNA & FeUrea) reflect a pre renal state * urine eosinophils negative * moderate proteinuria * IV diuretics PRN * 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 * repeat trial of IV bumex today * follow trend of repeat labs and UOP (2) Stage 3b chronic kidney disease: Code(s): N18.32 - Chronic kidney disease, stage 3b Status: Chronic Assessment and Plan: * creatinine 1.87mg/dL ~ 8 months ago on hospital discharge * was fluctuating 1.8 - 2.2mg/dL in the context of IV diuresis in January 2025 * prior to that, creatinine was ~ 1.1 - 1.2 in March of 2023 * presumably due to combination of diuretic use for CHF, diabetes, and hypertension +/- vascular disease (3) Septic shock: Code(s): A41.9 - Sepsis, unspecified organism; R65.21 - Severe sepsis with septic shock Status: Acute Assessment and Plan: * presented with hypotension unresponsive to IVF resuscitation * s/p 3.5L IVFs with no improvement in blood pressure * s/p RIJ central line placement and initiation of vasopressor therapy * suspected source include pneumonia, lower abdominal wall cellulitis, and/or heart failure * follow culture data (blood, sputum, and urine) * 10/04 sputum culture with Pseudomonas and Staph aureus * 10/04 blood cultures with Streptococcus dysgalactiae * lactic acid has normalized * weaned off vasopressor therapy * on antibiotics (4) Acute respiratory failure: Code(s): J96.00 - Acute respiratory failure, unspecified whether with hypoxia or hypercapnia Status: Acute Assessment and Plan: * extubated on 10/12 * intubated in ER for impending respiratory failure * noted hypoxia * worsening SOB with IVF resuscitation * decline in respiratory status felt to be secondary to CHF +/- pneumonia * wean supplemental oxygen as tolerated * follow respiratory status (5) Acute CHF: Code(s): I50.9 - Heart failure, unspecified Status: Acute Assessment and Plan: * known history * admission CXR with pulmonary vascular congestion * last Echo (01/16/25) noted: * left ventricular systolic function is normal, estimated at 65 - 70% * left ventricular diastolic function is grade I diastolic dysfunction * moderate to severe aortic valve stenosis with a peak velocity of 407 cm/s, mean gradient of 43 mmHg, and aortic valve area of 1.2 cm2 * mild aortic valve regurgitation * mild to moderate tricuspid valve regurgitation * pulmonary hypertension, estimated pulmonary arterial systolic pressure is 48 mmHg * repeat Echo (10/05/25) reviewed: * left ventricular systolic function is normal, estimated at 55 - 60% * left ventricular diastolic function is abnormal * severe aortic valve stenosis with a peak velocity of 435 cm/s, mean gradient of 43 mmHg, and aortic valve area of 0.9 cm2 * mild to moderate aortic valve regurgitation * mild mitral valve regurgitation * mild to moderate tricuspid valve regurgitation * moderate pulmonary hypertension, estimated pulmonary arterial systolic pressure is 56 mmHg * trace pulmonic regurgitation * with better hemodynamics * trial dose of IV bumex today * follow I/Os, daily weights, and respiratory status * Cardiology following (6) Anasarca: Code(s): R60.1 - Generalized edema Status: Acute Assessment and Plan: * likely a combination of CHF , MARIO, and liver cirrhosis/hypoalbuminemia * Echo as noted (see #5) * re-attempt diuretics today (7) Cirrhosis: Code(s): K74.60 - Unspecified cirrhosis of liver Status: Acute Assessment and Plan: * as noted by CT imaging: * noted spleen enlargement and cirrhosis * also with anasarca * trend bilirubin and LFTs * on lactulose (ammonia level has normalized) * GI following (8) Anemia: Code(s): D64.9 - Anemia, unspecified Status: Acute Assessment and Plan: * as noted * concern for GI loss given bleeding noted from OG tube * this appears to have resolved * suspect related to MARIO, CKD, and liver disease/cirrhosis * PRBC transfusion per protocol * consider PATRICIA given #1 and #2 (9) Thrombocytopenia: Code(s): D69.6 - Thrombocytopenia, unspecified Status: Acute Assessment and Plan: * chronic issue * saw Heme/Onc in the past and this is felt to be related to cirrhosis and alcohol use * platelet transfusion PRN (10) DM2 (diabetes mellitus, type 2): Code(s): E11.9 - Type 2 diabetes mellitus without complications Status: Chronic Assessment and Plan: * follow accu-cheks * glycemic control per hospitalist Another long and extensive discussion (> 20 minutes) with patient and his today with regard to his deteriorating renal function -- he is not making much urine with IV diuretics and he still has evidence of volume overload by exam and imaging studies in conjunction with a metabolic acidosis and significant azotemia; I informed both of them that I will re-attempt high dose diuretics today but if his labs are worse by tomorrow, I think we need to proceed with renal replacement therapy/dialysis. The both seemed to voice understanding. Will continue to follow. L Subjective Date/time seen: 10/15/25 09:53 Interval history: Follow-up for acute kidney injury/acute renal failure on chronic kidney disease. Renal function/creatinine continues to slowly worsen as noted by trend of labs; no significant response in urine output with IV bumex yesterday; mentation seems to be doing a bit better at the time of my visit; discussed situation with at bedside. Exam 2 Narrative: General: WD/WN male in NAD Heart: normal S1 and S2; no rub Lungs: coarse breath sounds Abdomen: soft, nontender, nondistended, positive bowel sounds Extremities: no cyanosis or clubbing; 1+ edema Skin: chronic venous stasis/skin changes apparent Objective Data Vital Signs Vital Signs: Vital Signs Temp Pulse Resp BP Pulse Ox O2 Del Method O2 Flow Rate 10/15/25 08:00 111 H 10/15/25 08:00 91 High Flow Nasal Cannula 4 10/15/25 08:00 98.2 F 114 H 26 H 102/38 L 90 10/15/25 06:00 119 H 10/15/25 05:11 97.8 F 120 H 22 H 106/62 92 10/15/25 04:00 98 High Flow Nasal Cannula 4 10/15/25 04:00 114 H 10/15/25 02:00 108 H 10/15/25 00:18 97.7 F 107 H 22 H 108/58 L 95 10/15/25 00:00 98 High Flow Nasal Cannula 4 10/15/25 00:00 106 H 10/14/25 22:00 107 H 10/14/25 20:29 97.6 F 109 H 23 H 110/62 98 10/14/25 20:00 107 H 10/14/25 20:00 98 High Flow Nasal Cannula 4 10/14/25 18:00 108 H Intake/Output Intake/Output: Intake & Output 10/12/25 10/13/25 10/14/25 10/15/25 23:59 23:59 23:59 23:59 Intake Total 819.9 145 888 9309 Output Total 850 230 775 650 Balance -30.1 -79 -305 890 Meds/Results Medications: Active Medications Generic Name Dose Route Start Last Admin Trade Name Freq PRN Reason Stop Dose Admin Aspirin 81 mg 10/04/25 17:50 10/15/25 15:58 Aspirin 81 Mg Chewable Tablet PO 81 mg DAILY@0800 VIKA Administration Bumetanide 2 mg 10/15/25 21:30 Bumetanide Inj 1 Mg/4 Ml Vial IV PUSH 10/15/25 21:31 ONCE ONE Carvedilol 3.125 mg 10/14/25 09:00 10/15/25 10:34 Carvedilol 3.125 Mg Tablet PO Not Given Q12H [facility] Dextrose 12.5 gm 10/04/25 13:16 Dextrose 50% 25 Gm/50 Ml Syringe IV PUSH PRN PRN Hypoglycemia Protocol Ferrous Sulfate 325 mg 10/14/25 09:00 10/15/25 15:58 Ferrous Sulfate 325 Mg Tablet PO 11/13/25 08:59 325 mg DAILY VIKA Administration Glucagon 1 mg 10/04/25 13:16 Glucagon For Inj 1 Mg Vial IM PRN PRN Hypoglycemia Protocol Glucose 15 gm 10/04/25 13:16 Glucose Oral Gel 15 Gm Of Glucse In 37.5 Gm Tube PO PRN PRN Hypoglycemia Protocol Dextrose 1,000 mls @ 100 mls/hr 10/04/25 13:16 Dextrose 5% 1,000 Ml IVPB PRN PRN Hypoglycemia Protocol Insulin Aspart 2 - 5 units 10/14/25 18:00 10/15/25 13:27 Insulin Aspart (*Bkc) 100 Units/Ml SUB-Q Not Given Q6HR [facility] Protocol Insulin Glargine 28 units 10/14/25 21:00 Insulin Glargine (*Bkc) 100 Units/Ml SUB-Q On Hold: 10/14/25 21:00 HS [facility] Ipratropium [place] 0.5 mg 10/07/25 07:43 10/12/25 20:10 Ipratropium Br 0.02% Inh Soln 0.5 Mg/2.5 Ml Vial INHALATION 0.5 mg Q6HRT PRN Administration Wheezing Lactulose 20 gm 10/16/25 09:00 Lactulose 20 Gm/30 Ml Udc PO QAM VIKA Levalbuterol HCl 0.63 mg 10/07/25 07:44 10/13/25 07:41 Levalbuterol Neb 1.25 Mg/3 Ml INHALATION 0.63 mg Q6HRT PRN Administration Wheezing Ondansetron HCl 4 mg 10/13/25 03:50 Ondansetron Inj 4 Mg/2 Ml Vial IV PUSH Q4H PRN Nausea And Vomiting Pantoprazole Sodium 40 mg 10/04/25 21:00 10/15/25 08:33 Pantoprazole Sodium Iv 40 Mg Vial IV PUSH 40 mg Q12HR VIKA Administration Potassium Chloride 20 meq 10/14/25 09:00 10/15/25 15:57 Potassium Chloride 20 Meq Er Tablet PO 20 meq DAILY VIKA Administration Thiamine HCl 100 mg 10/05/25 09:00 10/15/25 08:32 Thiamine Hcl 200 Mg/2 Ml Vial IV PUSH 100 mg QAM VIKA Administration Radiology Results: ITS Impressions Head CT 10/04/25 07:09 IMPRESSION: 1. No acute intracranial findings. Chest/Abdomen/Pelvis CT 10/04/25 07:26 IMPRESSION: CHEST- 1. Interstitial pulmonary edema and small right pleural effusion. 2. Superimposed pneumonitis or interstitial lung disease not excluded. ABDOMEN/PELVIS- 1. Colonic hepatic flexure wall thickening. Colitis and/or malignancy. 2. Additional findings as above. Renal Ultrasound 10/05/25 13:44 Impression: 1: Unremarkable renal ultrasound. No stones, masses or hydronephrosis. 2: Splenomegaly. 3: Ascites. Chest X-Ray 10/13/25 09:40 IMPRESSION: 1. Worsening pulmonary edema and/or multifocal airspace disease. 2. Persistent significant bibasilar atelectasis and/or airspace disease. 3. Pleural effusions not excluded. Labs Labs: Laboratory Tests 10/15/25 05:22 10/15/25 05:22 Calcium 10.1 Phosphorus 6.7 H Magnesium 2.7 H Albumin 4.5 Microbiology 10/11/25 09:02 Blood Blood Culture - Preliminary 10/11/25 08:48 Blood Blood Culture - Preliminary Quality trial of IV bumex 2mg x 1
--- NOTE | 2025-10-15 13:41 | PCOTNOTE ---
Patient unavailable at this time. Patient is working with PT.
[2025-10-15] MEDS: POTASSIUM CHLORIDE 20 MEQ ER TABLET PO (15:57)
[2025-10-15] MEDS: FERROUS SULFATE 325 MG TABLET PO (15:58)
[2025-10-15] MEDS: ASPIRIN 81 MG CHEWABLE TABLET PO (15:58)
[2025-10-15] MEDS: BUMETANIDE INJ 1 MG/4 ML VIAL 2 MG IV PUSH ×2 (15:59→21:25)
--- NOTE | 2025-10-15 18:28 | PM.IMPN2 ---
Assessment and Plan Assessment and Plan (1) Acute respiratory failure: Code(s): J96.00 - Acute respiratory failure, unspecified whether with hypoxia or hypercapnia Status: Acute Assessment and Plan: 10/04: Patient presented the ED via EMS with complains of generalized weakness, fevers, shortness of breath and fever. When EMS arrived to his house he was found on the ground, unable to get up off the floor. Patient's O2 sats were in the 80s on room air. Patient was placed on supplemental oxygen. In the ED patient was awake, alert, oriented was able to answer questions. O2 sats were improved but he was hypotensive, once he was given IV fluids per sepsis protocol he was more short of breath and was intubated -10/04: Intubated in the ER for impending respiratory failure likely related to CHF Vent management per ICU (2) Septic shock: Code(s): A41.9 - Sepsis, unspecified organism; R65.21 - Severe sepsis with septic shock Status: Acute Assessment and Plan: Patient with hypotension, likely related to pneumonia, possible lower abdomen cellulitis as seen on the CT scan. Could be related to heart failure -10/04: patient received 3.5 L IV fluid bolus in the ER, despite which his blood pressures remain low, is right-sided IJ central line was inserted, patient started on Levophed -upon arrival to the ICU patient was on Levophed 20 mcg/min with systolic blood pressures in the 80s, I advised the bedside RN to go up on the Levophed and ordered vasopressin -will maintain MAP > 65 mmHg or SBP > 100 mmHg -patient had does have a provided pulse pressure -will obtain troponin -will repeat echocardiogram echocardiogram -lactic acid was 5.9 on admission, repeat was 4.2 -will trend lactic acid -patient was given 1 dose of ceftriaxone and azithromycin in the ER -given history of alcoholism, cocaine abuse started on cefepime, vancomycin and azithromycin (10/04) -10/04: Blood cultures have been obtained -10/04: Urine cultures obtained and pain -10/04: sputum culture obtained and pending -10/04: Obtain urine Legionella and strep pneumo antigen, pending -chest x-ray shows Pulmonary vascular congestion, hold additional IV fluid -receiving albumin for intravascular volume expansion 10/05: Patient has multi-system organ failure, 01/16/2025: Echocardiogram Summary 1. Left ventricular chamber dimension is normal. 2. Left ventricular systolic function is normal, estimated at 65-70%. 3. There is mildly increased left ventricular wall thickness. 4. The left ventricular diastolic function is grade I diastolic dysfunction. 5. Right ventricular systolic function is normal. 6. Left atrial chamber dimension is moderately enlarged. 7. Right atrial chamber dimension is moderately enlarged. 8. There is moderate aortic valve calcification. 9. There is moderate to severe aortic valve stenosis with a peak velocity of 407 cm/s, mean gradient of 43 mmHg, and aortic valve area of 1.2 cm2. 10. There is mild aortic valve regurgitation. 11. There is mild to moderate tricuspid valve regurgitation. 12. Pulmonary hypertension, estimated pulmonary arterial systolic pressure is 48 mmHg. (3) MARIO (acute kidney injury): Code(s): N17.9 - Acute kidney failure, unspecified Status: Acute Assessment and Plan: Acute kidney injury, creatinine 1.83 on admission, (1.87-2.19 in January of 2025, prior to that patient's creatinine was 1.10-1.20 in March of 2023) -patient received 3.5 L of IV fluid bolus in the ER -will continue to monitor renal function, electrolytes and urine output -albumin for intravascular volume expansion, hold additional IV fluids due to pulmonary vascular congestion on chest x-ray -10/05: Worsening creatinine, decreased urine output, likely related to rhabdomyolysis, CK levels trending down, continue maintenance IV fluid -nephrology consult Renal ultrasound with no hydronephrosis Creatinine continues to incline. Nephrology following. Poor urine output On Lasix 80 mg IV b.i.d. (4) Acute CHF: Code(s): I50.9 - Heart failure, unspecified Status: Acute Assessment and Plan: Patient has history of CHF, he does take furosemide at home, echocardiogram as above -chest x-ray shows pulmonary vascular congestion after receiving IV fluid -repeat echo 10/05/2025: EF 55-60% abnormal diastolic function severe aortic stenosis [id number] aortic regurgitation mild MR [id number] TR moderate pulmonary hypertension (5) DM2 (diabetes mellitus, type 2): Code(s): E11.9 - Type 2 diabetes mellitus without complications Status: Chronic Assessment and Plan: Accu-Cheks and sliding scale insulin -patient does take Lantus at home, will restart if needed (6) Thrombocytopenia: Code(s): D69.6 - Thrombocytopenia, unspecified Status: Acute Assessment and Plan: Chronic thrombocytopenia could be related to cirrhosis, alcohol use -patient was evaluated by Oncology on 01/28/2023 -continue to monitor, -will transfuse as needed Ultrasound with splenomegaly and ascites noted (7) Cirrhosis: Code(s): K74.60 - Unspecified cirrhosis of liver Status: Acute Assessment and Plan: CT scan of the abdomen and pelvis showed spleen enlargement and cirrhosis -patient also has anasarca -elevated bilirubin ultrasound with splenomegaly and ascites noted (8) Anasarca: Code(s): R60.1 - Generalized edema Status: Acute Assessment and Plan: Likely related to cirrhosis (9) GI bleed: Code(s): K92.2 - Gastrointestinal hemorrhage, unspecified Status: Acute Assessment and Plan: OG tube has blood draining, could be related to trauma secondary to OG tube placement or variceal bleed or gastritis as patient has cirrhosis -Protonix IV q.12 hours -appreciate GI evaluation, no more GI bleeding noted from the OG tube -patient does have cirrhosis, MELD score of 26 (10) Anemia: Code(s): D64.9 - Anemia, unspecified Status: Acute Assessment and Plan: Patient also has anemia with hemoglobin of 10.7 (which is close to his baseline) -will continue to monitor, transfuse for hemoglobin < 7.0 (11) Aortic stenosis: Code(s): I35.0 - Nonrheumatic aortic (valve) stenosis Status: Acute Assessment and Plan: Moderate to severe aortic valve stenosis with mean gradient of 43 mmHg and aortic valve area of 1.2 cm2 -caution with IV fluids -repeat echocardiogram has been ordered (12) NSTEMI (non-ST elevated myocardial infarction): Code(s): I21.4 - Non-ST elevation (NSTEMI) myocardial infarction Status: Acute Assessment and Plan: 10/04: Troponins were 4.720, 8.720 and 13.00. -cardiology was consulted, recommended starting heparin infusion -10/05: Heparin infusion was discontinued as this was thought to be secondary to type 2 myocardial infarction secondary to anemia, hypotension, respiratory failure and septic shock. Plan patient with acute respiratory failure was intubated upon arrival patient with persistent a flutter with RVR, acute on chronic diastolic heart failure, most likely patient was volume overloaded and went to respiratory failure, patient was also treated for sepsis and shock due to pneumonia, patient was extubates and out of ICU, patient remains somnolent and not providing any history or ROS, his present. patient has difficulty swallowing, will have speech pathologist work with the patient, recommending MBS study. Today patient could not have MBS as patient is morbidly obese with BMI of 46.6 and he is too big for proceedure chair and patient could not have the proceedure, however the speech pathalogist will work the patient, will CPM and monitor DVT prophylaxis: SCDs, no chemoprophylaxis due to blood in OG tube likely related to GI bleeding and thrombocytopenia Stress ulcer prophylaxis: Protonix IV q.12 hours Nutrition: NPO for now Code Status: Full code Subjective Date/time seen: 10/15/25 18:28 Interval history: patient with acute respiratory failure was intubated upon arrival patient with persistent a flutter with RVR, acute on chronic diastolic heart failure, most likely patient was volume overloaded and went to respiratory failure, patient was also treated for sepsis and shock due to pneumonia, patient was extubates and out of ICU, patient remains somnolent and not providing any history or ROS, his present. patient has difficulty swallowing, will have speech pathologist work with the patient, recommending MBS study. Today patient could not have MBS as patient is morbidly obese with BMI of 46.6 and he is too big for proceedure chair and patient could not have the proceedure, however the speech pathalogist will work the patient, will CPM and monitor Review of Systems Review of Systems: ROS unobtainable: Yes unobtainable due to mental status Exam Narrative: Morbidly obese Patient is comfortable, NAD HEENT: eyes are clear and none icteric LUNGS:CTA HEART: RR S1S2 ABD: Morbidly obese distended Lower extremities: no edema SKIN: nonjaundiced Neuro: grossly intact. Objective Data Vital Signs Vital Signs: Vital Signs - 24 hr 10/14/25 20:00 10/14/25 20:00 10/14/25 20:29 Temperature 36.4 C Pulse Rate 107 H 109 H Respiratory Rate 23 H Blood Pressure 110/62 Pulse Oximetry 98 98 Oxygen Delivery High Flow Nasal Cannula Oxygen Flow Rate 4 10/14/25 22:00 10/15/25 00:00 10/15/25 00:00 Temperature Pulse Rate 107 H 106 H Respiratory Rate Blood Pressure Pulse Oximetry 98 Oxygen Delivery High Flow Nasal Cannula Oxygen Flow Rate 4 10/15/25 00:18 10/15/25 02:00 10/15/25 04:00 Temperature 36.5 C Pulse Rate 107 H 108 H 114 H Respiratory Rate 22 H Blood Pressure 108/58 L Pulse Oximetry 95 Oxygen Delivery Oxygen Flow Rate 10/15/25 04:00 10/15/25 05:11 10/15/25 06:00 Temperature 36.6 C Pulse Rate 120 H 119 H Respiratory Rate 22 H Blood Pressure 106/62 Pulse Oximetry 98 92 Oxygen Delivery High Flow Nasal Cannula Oxygen Flow Rate 4 10/15/25 08:00 10/15/25 08:00 10/15/25 08:00 Temperature 36.8 C Pulse Rate 114 H 111 H Respiratory Rate 26 H Blood Pressure 102/38 L Pulse Oximetry 90 91 Oxygen Delivery High Flow Nasal Cannula Oxygen Flow Rate 4 10/15/25 10:00 10/15/25 10:34 10/15/25 12:00 Temperature 37.4 C Pulse Rate 109 H 111 H 108 H Respiratory Rate 28 H Blood Pressure 112/67 Pulse Oximetry 95 Oxygen Delivery Oxygen Flow Rate 10/15/25 12:00 10/15/25 12:00 10/15/25 14:00 Temperature Pulse Rate 110 H 107 H Respiratory Rate Blood Pressure Pulse Oximetry 97 Oxygen Delivery High Flow Nasal Cannula Oxygen Flow Rate 4 10/15/25 16:00 Temperature 36.7 C Pulse Rate 106 H Respiratory Rate 22 H Blood Pressure 105/71 Pulse Oximetry 95 Oxygen Delivery Oxygen Flow Rate Intake/Output Intake/Output: Intake & Output 10/12/25 10/13/25 10/14/25 10/15/25 23:59 23:59 23:59 23:59 Intake Total 819.9 517 435 2061 Output Total 850 230 775 650 Balance -30.1 -79 -305 890 Meds/Results Medications: Active Medications Generic Name Dose Route Start Last Admin Trade Name Freq PRN Reason Stop Dose Admin Aspirin 81 mg 10/04/25 17:50 10/15/25 15:58 Aspirin 81 Mg Chewable Tablet PO 81 mg DAILY@0800 VIKA Administration Bumetanide 2 mg 10/15/25 21:30 Bumetanide Inj 1 Mg/4 Ml Vial IV PUSH 10/15/25 21:31 ONCE ONE Carvedilol 3.125 mg 10/14/25 09:00 10/15/25 10:34 Carvedilol 3.125 Mg Tablet PO Not Given Q12H VIKA Dextrose 12.5 gm 10/04/25 13:16 Dextrose 50% 25 Gm/50 Ml Syringe IV PUSH PRN PRN Hypoglycemia Protocol Ferrous Sulfate 325 mg 10/14/25 09:00 10/15/25 15:58 Ferrous Sulfate 325 Mg Tablet PO 11/13/25 08:59 325 mg DAILY VIKA Administration Glucagon 1 mg 10/04/25 13:16 Glucagon For Inj 1 Mg Vial IM PRN PRN Hypoglycemia Protocol Glucose 15 gm 10/04/25 13:16 Glucose Oral Gel 15 Gm Of Glucse In 37.5 Gm Tube PO PRN PRN Hypoglycemia Protocol Dextrose 1,000 mls @ 100 mls/hr 10/04/25 13:16 Dextrose 5% 1,000 Ml IVPB PRN PRN Hypoglycemia Protocol Insulin Aspart 2 - 5 units 10/14/25 18:00 10/15/25 13:27 Insulin Aspart (*Bkc) 100 Units/Ml SUB-Q Not Given Q6HR [facility] Protocol Insulin Glargine 28 units 10/14/25 21:00 Insulin Glargine (*Bkc) 100 Units/Ml SUB-Q On Hold: 10/14/25 21:00 HS VIKA Ipratropium [place] 0.5 mg 10/07/25 07:43 10/12/25 20:10 Ipratropium Br 0.02% Inh Soln 0.5 Mg/2.5 Ml Vial INHALATION 0.5 mg Q6HRT PRN Administration Wheezing Lactulose 20 gm 10/16/25 09:00 Lactulose 20 Gm/30 Ml Udc PO QAM VIKA Levalbuterol HCl 0.63 mg 10/07/25 07:44 10/13/25 07:41 Levalbuterol Neb 1.25 Mg/3 Ml INHALATION 0.63 mg Q6HRT PRN Administration Wheezing Ondansetron HCl 4 mg 10/13/25 03:50 Ondansetron Inj 4 Mg/2 Ml Vial IV PUSH Q4H PRN Nausea And Vomiting Pantoprazole Sodium 40 mg 10/04/25 21:00 10/15/25 08:33 Pantoprazole Sodium Iv 40 Mg Vial IV PUSH 40 mg Q12HR VIKA Administration Potassium Chloride 20 meq 10/14/25 09:00 10/15/25 15:57 Potassium Chloride 20 Meq Er Tablet PO 20 meq DAILY VIKA Administration Thiamine HCl 100 mg 10/05/25 09:00 10/15/25 08:32 Thiamine Hcl 200 Mg/2 Ml Vial IV PUSH 100 mg QAM VIKA Administration Radiology Results: ITS Impressions Head CT 10/04/25 07:09 IMPRESSION: 1. No acute intracranial findings. Chest/Abdomen/Pelvis CT 10/04/25 07:26 IMPRESSION: CHEST- 1. Interstitial pulmonary edema and small right pleural effusion. 2. Superimposed pneumonitis or interstitial lung disease not excluded. ABDOMEN/PELVIS- 1. Colonic hepatic flexure wall thickening. Colitis and/or malignancy. 2. Additional findings as above. Renal Ultrasound 10/05/25 13:44 Impression: 1: Unremarkable renal ultrasound. No stones, masses or hydronephrosis. 2: Splenomegaly. 3: Ascites. Chest X-Ray 10/15/25 18:13 IMPRESSION: 1. Partial resolution of patchy pulmonary edema in the mid and lower lung gutiérrez compared with 10/13/2025. Cardiomegaly and atherosclerotic aorta. Labs Labs: Laboratory Results - last 24 hr 10/15/25 10/15/25 10/15/25 00:38 05:22 12:15 WBC 9.3 RBC 2.24 L Hgb 7.8 L Hct 25.6 L MCV 114.3 H MCH 34.8 H MCHC 30.5 L RDW 16.7 H Plt Count 65 L MPV 10.1 Sodium 152 H Potassium 4.2 Chloride 115 H Carbon Dioxide 17 L Anion Gap 20 H BUN 119 H* Creatinine 5.68 H Estim Creat Clear Calc 20 Estimated GFR 10 L Glucose 137 H POC Capillary Glucose 125 H 148 H Calcium 10.1 Phosphorus 6.7 H Magnesium 2.7 H Albumin 4.5 10/15/25 18:12 WBC RBC Hgb Hct MCV MCH MCHC RDW Plt Count MPV Sodium Potassium Chloride Carbon Dioxide Anion Gap BUN Creatinine Estim Creat Clear Calc Estimated GFR Glucose POC Capillary Glucose 176 H Calcium Phosphorus Magnesium Albumin Quality VTE Prophylaxis VTE prophylaxis: mechanical ordered
[2025-10-16] VITALS (19 sets, daily range): BP systolic 94–121; BP diastolic 46–88; PULSE 93–101; RESP 18–28; TEMP 35.2–36.6; O2SAT 91–100
[2025-10-16 04:23] LABS: Hematocrit 25.4 % (42.0-52.0); Hemoglobin 7.5 g/dL (14.0-18.0); Immature Platelet Fraction Pct 2.6 % (0.9-11.2); Mean Corpuscular HGB Conc 29.5 g/dl (32-36); Mean Corpuscular Hemoglobin 34.6 pg (26-34); Mean Corpuscular Volume 117.1 fl (80-100); Platelet Count Result 66 k/mm3 (150-375); Red Blood Count 2.17 M/mm3 (4.6-6.20); White Blood Count 8.3 K/mm3 (4.5-10.0)
[2025-10-16 05:05] LABS: Albumin Level 4.4 g/dL (3.5-5.1); Anion Gap 14 mmol/L (4-12); Calcium 9.7 mg/dL (8.4-10.2); Carbon Dioxide 20 mmol/L (22-30); Chloride 115 mmol/L (98-107); Estimated CRCL calculation 18 ml/min; Estimated Glomerular Filt Rate 9; Glucose 173 mg/dL (65-110); Magnesium 2.8 mg/dL (1.6-2.3); Potassium 4.8 mmol/L (3.4-5.0); Sodium 149 mmol/L (137-145)
[2025-10-16 05:27] LABS: Blood Urea Nitrogen 130 mg/dL (9-20)
[2025-10-16 08:09] LABS: INR 1.7; Prothrombin Time 19.7 Seconds (11.1-14.7)
[2025-10-16] MEDS: THIAMINE HCL 200 MG/2 ML VIAL 100 MG IV PUSH (08:20)
[2025-10-16] MEDS: FERROUS SULFATE 325 MG TABLET PO (08:20)
[2025-10-16] MEDS: LACTULOSE 20 GM/30 ML UDC PO (08:20)
[2025-10-16] MEDS: PANTOPRAZOLE SODIUM IV 40 MG VIAL IV PUSH (08:20)
--- NOTE | 2025-10-16 09:01 | PM.PNNEP ---
Progress Note: A&P Assessment and Plan (1) Acute kidney injury: Code(s): N17.9 - Acute kidney failure, unspecified Status: Acute Assessment and Plan: as noted by labs on 10/05 (creatinine up to 2.87mg/dL) admission creatinine at baseline complicated by diminished urine output and volume overload however, somewhat responsive to diuretics suspect multifactorial etiology: hemodynamic instability/shock infection/sepsis hypoxia cocaine use CHF rhabdomyolysis NSTEMI pre renal factors other(?) evaluation to date noted: renal ultrasound shows normal kidneys CK was elevated but trending down (although was high enough to cause damage to the kidneys) UA shows blood protein and red cells urine electrolytes (FeNA & FeUrea) reflect a pre renal state urine eosinophils negative moderate proteinuria IV diuretics PRN -- but poor response 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 proceed with TITLE PROCESSOR/dialysis consult Surgery for tunneled HD catheter placement follow trend of repeat labs and UOP (2) Stage 3b chronic kidney disease: Code(s): N18.32 - Chronic kidney disease, stage 3b Status: Chronic Assessment and Plan: creatinine 1.87mg/dL ~ 8 months ago on hospital discharge was fluctuating 1.8 - 2.2mg/dL in the context of IV diuresis in January 2025 prior to that, creatinine was ~ 1.1 - 1.2 in March of 2023 presumably due to combination of diuretic use for CHF, diabetes, and hypertension +/- vascular disease (3) Septic shock: Code(s): A41.9 - Sepsis, unspecified organism; R65.21 - Severe sepsis with septic shock Status: Acute Assessment and Plan: presented with hypotension unresponsive to IVF resuscitation s/p 3.5L IVFs with no improvement in blood pressure s/p RIJ central line placement and initiation of vasopressor therapy suspected source include pneumonia, lower abdominal wall cellulitis, and/or heart failure follow culture data (blood, sputum, and urine) 10/04 sputum culture with Pseudomonas and Staph aureus 10/04 blood cultures with Streptococcus dysgalactiae lactic acid has normalized weaned off vasopressor therapy on antibiotics (4) Acute respiratory failure: Code(s): J96.00 - Acute respiratory failure, unspecified whether with hypoxia or hypercapnia Status: Acute Assessment and Plan: extubated on 10/12 intubated in ER for impending respiratory failure noted hypoxia worsening SOB with IVF resuscitation decline in respiratory status felt to be secondary to CHF +/- pneumonia wean supplemental oxygen as tolerated follow respiratory status (5) Acute CHF: Code(s): I50.9 - Heart failure, unspecified Status: Acute Assessment and Plan: known history admission CXR with pulmonary vascular congestion last Echo (01/16/25) noted: left ventricular systolic function is normal, estimated at 65 - 70% left ventricular diastolic function is grade I diastolic dysfunction moderate to severe aortic valve stenosis with a peak velocity of 407 cm/s, mean gradient of 43 mmHg, and aortic valve area of 1.2 cm2 mild aortic valve regurgitation mild to moderate tricuspid valve regurgitation pulmonary hypertension, estimated pulmonary arterial systolic pressure is 48 mmHg repeat Echo (10/05/25) reviewed: left ventricular systolic function is normal, estimated at 55 - 60% left ventricular diastolic function is abnormal severe aortic valve stenosis with a peak velocity of 435 cm/s, mean gradient of 43 mmHg, and aortic valve area of 0.9 cm2 mild to moderate aortic valve regurgitation mild mitral valve regurgitation mild to moderate tricuspid valve regurgitation moderate pulmonary hypertension, estimated pulmonary arterial systolic pressure is 56 mmHg trace pulmonic regurgitation with better hemodynamics trial dose of IV bumex today follow I/Os, daily weights, and respiratory status Cardiology following (6) Anasarca: Code(s): R60.1 - Generalized edema Status: Acute Assessment and Plan: likely a combination of CHF , MARIO, and liver cirrhosis/hypoalbuminemia Echo as noted (see #5) re-attempt diuretics today (7) Cirrhosis: Code(s): K74.60 - Unspecified cirrhosis of liver Status: Acute Assessment and Plan: as noted by CT imaging: noted spleen enlargement and cirrhosis also with anasarca trend bilirubin and LFTs as well as INR on lactulose (ammonia level has normalized) GI following (8) Anemia: Code(s): D64.9 - Anemia, unspecified Status: Acute Assessment and Plan: as noted concern for GI loss given bleeding noted from OG tube this appears to have resolved suspect related to MARIO, CKD, and liver disease/cirrhosis PRBC transfusion per protocol consider PATRICIA given #1 and #2 (9) Thrombocytopenia: Code(s): D69.6 - Thrombocytopenia, unspecified Status: Acute Assessment and Plan: chronic issue saw Heme/Onc in the past and this is felt to be related to cirrhosis and alcohol use platelet transfusion PRN (10) DM2 (diabetes mellitus, type 2): Code(s): E11.9 - Type 2 diabetes mellitus without complications Status: Chronic Assessment and Plan: follow accu-cheks glycemic control per hospitalist Despite my concerns that dialysis would be high risk given the patient's multiple medical issues (liver cirrhosis, thrombocytopenia, aortic stenosis, fluctuating INR...etc), the patient and his are willing to proceed with renal replacement therapy/hemodialysis. Will consult Surgery for tunneled HD catheter placement and proceed with dialysis... Will continue to follow. Subjective Date/time seen: 10/16/25 09:01 Interval history: Follow-up for acute kidney injury/acute renal failure on chronic kidney disease. Despite high dose diuretic therapy yesterday, no apparent improvement in urine output and renal function/creatinine/BUN continue to worsen; despite my concerns that he is quite high risk for dialysis, the patient and are willing to proceed with dialysis. No other acute issues/events overnight or earlier this morning. Exam Narrative: General: WD/WN male in NAD Heart: normal S1 and S2; no rub Lungs: coarse breath sounds Abdomen: soft, nontender, nondistended, positive bowel sounds Extremities: no cyanosis or clubbing; 1+ edema Skin: chronic venous stasis/skin changes present Objective Data Vital Signs Vital Signs: Vital Signs Temp Pulse Resp BP Pulse Ox O2 Del Method O2 Flow Rate 10/16/25 08:21 100 10/16/25 08:00 100 10/16/25 08:00 96 High Flow Nasal Cannula 4 10/16/25 08:00 97.4 F L 100 28 H 121/64 96 10/16/25 06:00 99 10/16/25 04:00 97.8 F 101 H 18 106/46 L 100 10/16/25 04:00 100 10/16/25 04:00 97 High Flow Nasal Cannula 4 10/16/25 02:00 100 10/16/25 01:11 101 H 25 H 91 BiPAP 10/16/25 00:00 101 H 10/16/25 00:00 96 High Flow Nasal Cannula 4 10/16/25 00:00 97.5 F L 101 H 22 H 112/70 99 10/15/25 22:00 104 H 10/15/25 21:22 104 H 10/15/25 20:00 105 H 10/15/25 20:00 97 High Flow Nasal Cannula 4 10/15/25 20:00 97.5 F L 105 H 20 121/66 97 10/15/25 16:00 106 H 10/15/25 16:00 92 High Flow Nasal Cannula 4 10/15/25 16:00 98.0 F 106 H 22 H 105/71 95 10/15/25 14:00 107 H Intake/Output Intake/Output: Intake & Output 10/13/25 10/14/25 10/15/25 10/16/25 23:59 23:59 23:59 23:59 Intake Total 902 735 1668 125 Output Total 230 775 650 100 Balance -79 -305 890 25 Meds/Results Medications: Active Medications Generic Name Dose Route Start Last Admin Trade Name Freq PRN Reason Stop Dose Admin Aspirin 81 mg 10/04/25 17:50 10/16/25 08:32 Aspirin 81 Mg Chewable Tablet PO Not Given DAILY@0800 [facility] Carvedilol 3.125 mg 10/14/25 09:00 10/16/25 08:21 Carvedilol 3.125 Mg Tablet PO 3.125 mg Q12H [facility] Administration Dextrose 12.5 gm 10/04/25 13:16 Dextrose 50% 25 Gm/50 Ml Syringe IV PUSH PRN PRN Hypoglycemia Protocol Ferrous Sulfate 325 mg 10/14/25 09:00 10/16/25 08:20 Ferrous Sulfate 325 Mg Tablet PO 11/13/25 08:59 325 mg DAILY [facility] Administration Glucagon 1 mg 10/04/25 13:16 Glucagon For Inj 1 Mg Vial IM PRN PRN Hypoglycemia Protocol Glucose 15 gm 10/04/25 13:16 Glucose Oral Gel 15 Gm Of Glucse In 37.5 Gm Tube PO PRN PRN Hypoglycemia Protocol Dextrose 1,000 mls @ 100 mls/hr 10/04/25 13:16 Dextrose 5% 1,000 Ml IVPB PRN PRN Hypoglycemia Protocol Insulin Aspart 2 - 5 units 10/14/25 18:00 10/16/25 06:12 Insulin Aspart (*Bkc) 100 Units/Ml SUB-Q Not Given Q6HR [facility] Protocol Insulin Glargine 28 units 10/14/25 21:00 Insulin Glargine (*Bkc) 100 Units/Ml SUB-Q On Hold: 10/14/25 21:00 HS [facility] Ipratropium [place] 0.5 mg 10/07/25 07:43 10/12/25 20:10 Ipratropium Br 0.02% Inh Soln 0.5 Mg/2.5 Ml Vial INHALATION 0.5 mg Q6HRT PRN Administration Wheezing Lactulose 20 gm 10/16/25 09:00 10/16/25 08:20 Lactulose 20 Gm/30 Ml Udc PO 20 gm QAM [facility] Administration Levalbuterol HCl 0.63 mg 10/07/25 07:44 10/13/25 07:41 Levalbuterol Neb 1.25 Mg/3 Ml INHALATION 0.63 mg Q6HRT PRN Administration Wheezing Ondansetron HCl 4 mg 10/13/25 03:50 Ondansetron Inj 4 Mg/2 Ml Vial IV PUSH Q4H PRN Nausea And Vomiting Pantoprazole Sodium 40 mg 10/04/25 21:00 10/16/25 08:20 Pantoprazole Sodium Iv 40 Mg Vial IV PUSH 40 mg Q12HR [facility] Administration Potassium Chloride 20 meq 10/14/25 09:00 10/16/25 08:22 Potassium Chloride 20 Meq Er Tablet PO Not Given DAILY [facility] Thiamine HCl 100 mg 10/05/25 09:00 10/16/25 08:20 Thiamine Hcl 200 Mg/2 Ml Vial IV PUSH 100 mg QAM [facility] Administration Radiology Results: ITS Impressions Head CT 10/04/25 07:09 IMPRESSION: 1. No acute intracranial findings. Chest/Abdomen/Pelvis CT 10/04/25 07:26 IMPRESSION: CHEST- 1. Interstitial pulmonary edema and small right pleural effusion. 2. Superimposed pneumonitis or interstitial lung disease not excluded. ABDOMEN/PELVIS- 1. Colonic hepatic flexure wall thickening. Colitis and/or malignancy. 2. Additional findings as above. Renal Ultrasound 10/05/25 13:44 Impression: 1: Unremarkable renal ultrasound. No stones, masses or hydronephrosis. 2: Splenomegaly. 3: Ascites. Chest X-Ray 10/15/25 18:13 IMPRESSION: 1. Partial resolution of patchy pulmonary edema in the mid and lower lung gutiérrez compared with 10/13/2025. Cardiomegaly and atherosclerotic aorta. Labs Labs: Laboratory Tests 10/16/25 04:06 10/16/25 04:06 PT 19.7 H INR 1.7 Sodium 149 H Potassium 4.8 Chloride 115 H Carbon Dioxide 20 L Anion Gap 14 H BUN 130 H* D Creatinine 6.30 H Estim Creat Clear Calc 18 Estimated GFR 9 L Glucose 173 H Calcium 9.7 Phosphorus 8.1 H Magnesium 2.8 H Albumin 4.4 Quality trial of IV bumex 2mg x 1
--- NOTE | 2025-10-16 09:01 | P.PNNP_ITS ---
Progress Note: A&P Assessment and Plan (1) Acute kidney injury: Code(s): N17.9 - Acute kidney failure, unspecified Status: Acute Assessment and Plan: * as noted by labs on 10/05 (creatinine up to 2.87mg/dL) * admission creatinine at baseline * complicated by diminished urine output and volume overload * however, somewhat responsive to diuretics * suspect multifactorial etiology: * hemodynamic instability/shock * infection/sepsis * hypoxia * cocaine use * CHF * rhabdomyolysis * NSTEMI * pre renal factors * other(?) * evaluation to date noted: * renal ultrasound shows normal kidneys * CK was elevated but trending down (although was high enough to cause damage to the kidneys) * UA shows blood protein and red cells * urine electrolytes (FeNA & FeUrea) reflect a pre renal state * urine eosinophils negative * moderate proteinuria * IV diuretics PRN -- but poor response * will proceed with MANIPULATIVE THERAPY SPECIALIST/dialysis * consult Surgery for tunneled HD catheter placement * follow trend of repeat labs and UOP (2) Stage 3b chronic kidney disease: Code(s): N18.32 - Chronic kidney disease, stage 3b Status: Chronic Assessment and Plan: * creatinine 1.87mg/dL ~ 8 months ago on hospital discharge * was fluctuating 1.8 - 2.2mg/dL in the context of IV diuresis in January 2025 * prior to that, creatinine was ~ 1.1 - 1.2 in March of 2023 * presumably due to combination of diuretic use for CHF, diabetes, and hypertension +/- vascular disease (3) Septic shock: Code(s): A41.9 - Sepsis, unspecified organism; R65.21 - Severe sepsis with septic shock Status: Acute Assessment and Plan: * presented with hypotension unresponsive to IVF resuscitation * s/p 3.5L IVFs with no improvement in blood pressure * s/p RIJ central line placement and initiation of vasopressor therapy * suspected source include pneumonia, lower abdominal wall cellulitis, and/or heart failure * follow culture data (blood, sputum, and urine) * 10/04 sputum culture with Pseudomonas and Staph aureus * 10/04 blood cultures with Streptococcus dysgalactiae * lactic acid has normalized * weaned off vasopressor therapy * on antibiotics (4) Acute respiratory failure: Code(s): J96.00 - Acute respiratory failure, unspecified whether with hypoxia or hypercapnia Status: Acute Assessment and Plan: * extubated on 10/12 * intubated in ER for impending respiratory failure * noted hypoxia * worsening SOB with IVF resuscitation * decline in respiratory status felt to be secondary to CHF +/- pneumonia * wean supplemental oxygen as tolerated * follow respiratory status (5) Acute CHF: Code(s): I50.9 - Heart failure, unspecified Status: Acute Assessment and Plan: * known history * admission CXR with pulmonary vascular congestion * last Echo (01/16/25) noted: * left ventricular systolic function is normal, estimated at 65 - 70% * left ventricular diastolic function is grade I diastolic dysfunction * moderate to severe aortic valve stenosis with a peak velocity of 407 cm/s, mean gradient of 43 mmHg, and aortic valve area of 1.2 cm2 * mild aortic valve regurgitation * mild to moderate tricuspid valve regurgitation * pulmonary hypertension, estimated pulmonary arterial systolic pressure is 48 mmHg * repeat Echo (10/05/25) reviewed: * left ventricular systolic function is normal, estimated at 55 - 60% * left ventricular diastolic function is abnormal * severe aortic valve stenosis with a peak velocity of 435 cm/s, mean gradient of 43 mmHg, and aortic valve area of 0.9 cm2 * mild to moderate aortic valve regurgitation * mild mitral valve regurgitation * mild to moderate tricuspid valve regurgitation * moderate pulmonary hypertension, estimated pulmonary arterial systolic pressure is 56 mmHg * trace pulmonic regurgitation * with better hemodynamics * trial dose of IV bumex today * follow I/Os, daily weights, and respiratory status * Cardiology following (6) Anasarca: Code(s): R60.1 - Generalized edema Status: Acute Assessment and Plan: * likely a combination of CHF , MARIO, and liver cirrhosis/hypoalbuminemia * Echo as noted (see #5) * re-attempt diuretics today (7) Cirrhosis: Code(s): K74.60 - Unspecified cirrhosis of liver Status: Acute Assessment and Plan: * as noted by CT imaging: * noted spleen enlargement and cirrhosis * also with anasarca * trend bilirubin and LFTs as well as INR * on lactulose (ammonia level has normalized) * GI following (8) Anemia: Code(s): D64.9 - Anemia, unspecified Status: Acute Assessment and Plan: * as noted * concern for GI loss given bleeding noted from OG tube * this appears to have resolved * suspect related to MARIO, CKD, and liver disease/cirrhosis * PRBC transfusion per protocol * consider PATRICIA given #1 and #2 (9) Thrombocytopenia: Code(s): D69.6 - Thrombocytopenia, unspecified Status: Acute Assessment and Plan: * chronic issue * saw Heme/Onc in the past and this is felt to be related to cirrhosis and alcohol use * platelet transfusion PRN (10) DM2 (diabetes mellitus, type 2): Code(s): E11.9 - Type 2 diabetes mellitus without complications Status: Chronic Assessment and Plan: * follow accu-cheks * glycemic control per hospitalist Despite my concerns that dialysis would be high risk given the patient's multiple medical issues (liver cirrhosis, thrombocytopenia, aortic stenosis, fluctuating INR...etc), the patient and his are willing to proceed with renal replacement therapy/hemodialysis. Will consult Surgery for tunneled HD catheter placement and proceed with dialysis... Will continue to follow. L Subjective Date/time seen: 10/16/25 09:01 Interval history: Follow-up for acute kidney injury/acute renal failure on chronic kidney disease. Despite high dose diuretic therapy yesterday, no apparent improvement in urine output and renal function/creatinine/BUN continue to worsen; despite my concerns that he is quite high risk for dialysis, the patient and are willing to proceed with dialysis. No other acute issues/events overnight or earlier this morning. Exam 2 Narrative: General: WD/WN male in NAD Heart: normal S1 and S2; no rub Lungs: coarse breath sounds Abdomen: soft, nontender, nondistended, positive bowel sounds Extremities: no cyanosis or clubbing; 1+ edema Skin: chronic venous stasis/skin changes present Objective Data Vital Signs Vital Signs: Vital Signs Temp Pulse Resp BP Pulse Ox O2 Del Method O2 Flow Rate 10/16/25 08:21 100 10/16/25 08:00 100 10/16/25 08:00 96 High Flow Nasal Cannula 4 10/16/25 08:00 97.4 F L 100 28 H 121/64 96 10/16/25 06:00 99 10/16/25 04:00 97.8 F 101 H 18 106/46 L 100 10/16/25 04:00 100 10/16/25 04:00 97 High Flow Nasal Cannula 4 10/16/25 02:00 100 10/16/25 01:11 101 H 25 H 91 BiPAP 10/16/25 00:00 101 H 10/16/25 00:00 96 High Flow Nasal Cannula 4 10/16/25 00:00 97.5 F L 101 H 22 H 112/70 99 10/15/25 22:00 104 H 10/15/25 21:22 104 H 10/15/25 20:00 105 H 10/15/25 20:00 97 High Flow Nasal Cannula 4 10/15/25 20:00 97.5 F L 105 H 20 121/66 97 10/15/25 16:00 106 H 10/15/25 16:00 92 High Flow Nasal Cannula 4 10/15/25 16:00 98.0 F 106 H 22 H 105/71 95 10/15/25 14:00 107 H Intake/Output Intake/Output: Intake & Output 10/13/25 10/14/25 10/15/25 10/16/25 23:59 23:59 23:59 23:59 Intake Total 112 199 3281 125 Output Total 230 775 650 100 Balance -79 -305 890 25 Meds/Results Medications: Active Medications Generic Name Dose Route Start Last Admin Trade Name Freq PRN Reason Stop Dose Admin Aspirin 81 mg 10/04/25 17:50 10/16/25 08:32 Aspirin 81 Mg Chewable Tablet PO Not Given DAILY@0800 [facility] Carvedilol 3.125 mg 10/14/25 09:00 10/16/25 08:21 Carvedilol 3.125 Mg Tablet PO 3.125 mg Q12H [facility] Administration Dextrose 12.5 gm 10/04/25 13:16 Dextrose 50% 25 Gm/50 Ml Syringe IV PUSH PRN PRN Hypoglycemia Protocol Ferrous Sulfate 325 mg 10/14/25 09:00 10/16/25 08:20 Ferrous Sulfate 325 Mg Tablet PO 11/13/25 08:59 325 mg DAILY [facility] Administration Glucagon 1 mg 10/04/25 13:16 Glucagon For Inj 1 Mg Vial IM PRN PRN Hypoglycemia Protocol Glucose 15 gm 10/04/25 13:16 Glucose Oral Gel 15 Gm Of Glucse In 37.5 Gm Tube PO PRN PRN Hypoglycemia Protocol Dextrose 1,000 mls @ 100 mls/hr 10/04/25 13:16 Dextrose 5% 1,000 Ml IVPB PRN PRN Hypoglycemia Protocol Insulin Aspart 2 - 5 units 10/14/25 18:00 10/16/25 06:12 Insulin Aspart (*Bkc) 100 Units/Ml SUB-Q Not Given Q6HR [facility] Protocol Insulin Glargine 28 units 10/14/25 21:00 Insulin Glargine (*Bkc) 100 Units/Ml SUB-Q On Hold: 10/14/25 21:00 HS [facility] Ipratropium [place] 0.5 mg 10/07/25 07:43 10/12/25 20:10 Ipratropium Br 0.02% Inh Soln 0.5 Mg/2.5 Ml Vial INHALATION 0.5 mg Q6HRT PRN Administration Wheezing Lactulose 20 gm 10/16/25 09:00 10/16/25 08:20 Lactulose 20 Gm/30 Ml Udc PO 20 gm QAM [facility] Administration Levalbuterol HCl 0.63 mg 10/07/25 07:44 10/13/25 07:41 Levalbuterol Neb 1.25 Mg/3 Ml INHALATION 0.63 mg Q6HRT PRN Administration Wheezing Ondansetron HCl 4 mg 10/13/25 03:50 Ondansetron Inj 4 Mg/2 Ml Vial IV PUSH Q4H PRN Nausea And Vomiting Pantoprazole Sodium 40 mg 10/04/25 21:00 10/16/25 08:20 Pantoprazole Sodium Iv 40 Mg Vial IV PUSH 40 mg Q12HR [facility] Administration Potassium Chloride 20 meq 10/14/25 09:00 10/16/25 08:22 Potassium Chloride 20 Meq Er Tablet PO Not Given DAILY [facility] Thiamine HCl 100 mg 10/05/25 09:00 10/16/25 08:20 Thiamine Hcl 200 Mg/2 Ml Vial IV PUSH 100 mg QAM [facility] Administration Radiology Results: ITS Impressions Head CT 10/04/25 07:09 IMPRESSION: 1. No acute intracranial findings. Chest/Abdomen/Pelvis CT 10/04/25 07:26 IMPRESSION: CHEST- 1. Interstitial pulmonary edema and small right pleural effusion. 2. Superimposed pneumonitis or interstitial lung disease not excluded. ABDOMEN/PELVIS- 1. Colonic hepatic flexure wall thickening. Colitis and/or malignancy. 2. Additional findings as above. Renal Ultrasound 10/05/25 13:44 Impression: 1: Unremarkable renal ultrasound. No stones, masses or hydronephrosis. 2: Splenomegaly. 3: Ascites. Chest X-Ray 10/15/25 18:13 IMPRESSION: 1. Partial resolution of patchy pulmonary edema in the mid and lower lung gutiérrez compared with 10/13/2025. Cardiomegaly and atherosclerotic aorta. Labs Labs: Laboratory Tests 10/16/25 04:06 10/16/25 04:06 PT 19.7 H INR 1.7 Sodium 149 H Potassium 4.8 Chloride 115 H Carbon Dioxide 20 L Anion Gap 14 H BUN 130 H* D Creatinine 6.30 H Estim Creat Clear Calc 18 Estimated GFR 9 L Glucose 173 H Calcium 9.7 Phosphorus 8.1 H Magnesium 2.8 H Albumin 4.4 Quality trial of IV bumex 2mg x 1
--- NOTE | 2025-10-16 10:53 | PM.CNGS ---
Assessment and Plan Assessment and plan (1) MARIO (acute kidney injury): Code(s): N17.9 - Acute kidney failure, unspecified Status: Acute Assessment and Plan: Patient presented to the hospital roughly 2 weeks ago with symptoms including dyspnea, weakness, fever, tachycardia. Patient intubated and sedated in ICU for sepsis workup. Patient has several severe comorbidities including cirrhosis, presumably from heavy alcohol and drug abuse, aortic stenosis, CHF, and pulmonary hypertension. Noted to be anemic with acute kidney injury. Despite diuresis for fluid overload, kidney function has continued to worsen. General surgery team was consulted for placement of tunneled hemodialysis catheter. Due to patients severe surgical risk with his aortic stenosis, cirrhosis, and respiratory failure, we will not proceed with any surgical intervention. If patient elects to proceed with surgery, he will require referral/transfer to a tertiary care facility better capable of managing his comorbidities and providing appropriate perioperative care. (2) Cirrhosis: Code(s): K74.60 - Unspecified cirrhosis of liver Status: Acute (3) DM2 (diabetes mellitus, type 2): Code(s): E11.9 - Type 2 diabetes mellitus without complications Status: Chronic (4) NSTEMI (non-ST elevated myocardial infarction): Code(s): I21.4 - Non-ST elevation (NSTEMI) myocardial infarction Status: Acute (5) Aortic stenosis: Code(s): I35.0 - Nonrheumatic aortic (valve) stenosis Status: Acute (6) Acute CHF: Code(s): I50.9 - Heart failure, unspecified Status: Acute (7) Alcohol abuse: Code(s): F10.10 - Alcohol abuse, uncomplicated Status: Acute (8) Drug abuse: Code(s): F19.10 - Other psychoactive substance abuse, uncomplicated Status: Acute (9) Acute respiratory failure: Code(s): J96.00 - Acute respiratory failure, unspecified whether with hypoxia or hypercapnia Status: Acute Assessment and Plan: Currently on 4L O2 via nasal cannula. (10) Septic shock: Code(s): A41.9 - Sepsis, unspecified organism; R65.21 - Severe sepsis with septic shock Status: Acute (11) Anasarca: Code(s): R60.1 - Generalized edema Status: Acute Assessment and Plan: Patient less edematous with diuresis. However, he is now hypernatremic. (12) Anemia: Code(s): D64.9 - Anemia, unspecified Status: Acute Assessment and Plan: Hgb 7.5. Plan Discussed patient's case and plan of care with Dr. Buck. History of Present Illness Consult details Consult date: 10/16/25 Reason for consult: other (tunneled HD catheter for hemodiasysis) Requesting physician: Dereck Baez MD Narrative: Patient is a 65 year old male with history of CHF, alcoholism, cocaine abuse, diabetes mellitus, BPH, hypertension who we have been asked to see in surgical consultation for placement of a tunneled hemodialysis catheter. Patient initially presented to the emergency department on 10/04/2025 after EMS called a code sepsis from the household. He was worked up for acute exacerbation of CHF and pneumonia complicated by background of alcohol and cocaine abuse and underlying liver cirrhosis. Noted to be in renal failure, respiratory failure and circulatory failure. EKG showed inferior myocardial infarction. Was intubated and required vasopressors in ICU. Patient also noted to have severe aortic stenosis and pulmonary hypertension. Cardiology following. No anticoagulation as one time episode of afib, anemia, thrombocytopenia , and hematuria. Patient downgraded to IMU. Nephrology has been following since admission. Patient was somewhat responsive to diuretics, at the expense of his BUN/Cr and kidney function that has continued to decline. Upon admission, patient's Cr was 1.83, now up to 6.3. Upon interview today, it was noted that rayne is not a great historian. at bedside. Denies any prior surgeries to neck or chest. He did have a central line in right IJ that patient pulled out when in ICU. Currently on 4L O2 nasal cannula. [facility] Past Medical History Medical History (Updated 10/08/25 @ 11:51 by Hien Paulson MD) Alcohol abuse Lactic acidosis Chronic anemia Aortic stenosis Echo January 2025 moderate to severe aortic valve stenosis with a peak velocity of 407 cm/s, mean gradient of 43 mmHg, and aortic valve area of 1.2 cm2. 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 He has 3 children and is and lives with his . Code status full code Smoking packs per day: 0.5 Smoking cigarettes per day: 10.0 Years smoked: 15 Smoking pack-years: 7.50 Smoking status: Former smoker Tobacco type: cigarettes Second hand tobacco smoke exposure: Yes Alcohol intake: current Drinks per week: 4 Substance use: current Substance use type: marijuana and crack/cocaine Last use: 10/03/25 Lack of Transportation: No Lack of Food: Never True Current Housing: I Have Housing Concerned About Future Housing: No Difficulty Paying Gas/Electric Bills: YES Difficulty Paying for Meds: No Currently Unemployed: No Education: High School Diploma/GED Difficulty w/ Childcare or Family Care: No Living arrangements: with family Spiritual care concerns: No Meds Home Medications and Allergies Home Medications ?Medication ?Instructions ?Recorded ?Confirmed ?Type insulin glargine 100 unit/mL (3 28 unit subcut HS 01/25/23 10/04/25 History mL) subcutaneous pen (Basaglar KwikPen U-100 Insulin) Held on 10/04/25. Instructions: Patient no longer taking insulin regular human 100 unit/mL 15 unit subcut ACHS 01/25/23 10/04/25 History injection solution (Humulin R Regular U-100 Insulin) ferrous sulfate 325 mg (65 mg 325 mg PO DAILY 01/15/25 10/04/25 History iron) tablet furosemide 20 mg tablet 40 mg PO DAILY 01/15/25 10/04/25 History potassium chloride 10 mEq 20 meq PO DAILY 01/15/25 10/04/25 History tablet,extended release Held on 10/04/25. Instructions: Patient no longer taking carvedilol 3.125 mg tablet 3.125 mg PO Q12H 10/04/25 10/04/25 History Allergies Allergy/AdvReac Type Severity Reaction Status Date / Time oxycodone Allergy Intermediate Itching Verified 10/04/25 12:24 empagliflozin (From Allergy Mild Swelling Verified 10/04/25 12:24 Jardiance) Vital Signs Vital Signs - 24 hr 10/15/25 12:00 10/15/25 12:00 10/15/25 12:00 Temperature 99.4 F Pulse Rate 108 H 110 H Respiratory Rate 28 H Blood Pressure 112/67 Pulse Oximetry 95 97 Oxygen Delivery High Flow Nasal Cannula Oxygen Flow Rate 4 10/15/25 14:00 10/15/25 16:00 10/15/25 16:00 Temperature 98.0 F Pulse Rate 107 H 106 H Respiratory Rate 22 H Blood Pressure 105/71 Pulse Oximetry 95 92 Oxygen Delivery High Flow Nasal Cannula Oxygen Flow Rate 4 10/15/25 16:00 10/15/25 20:00 10/15/25 20:00 Temperature 97.5 F L Pulse Rate 106 H 105 H Respiratory Rate 20 Blood Pressure 121/66 Pulse Oximetry 97 97 Oxygen Delivery High Flow Nasal Cannula Oxygen Flow Rate 4 10/15/25 20:00 10/15/25 21:22 10/15/25 22:00 Temperature Pulse Rate 105 H 104 H 104 H Respiratory Rate Blood Pressure Pulse Oximetry Oxygen Delivery Oxygen Flow Rate 10/16/25 00:00 10/16/25 00:00 10/16/25 00:00 Temperature 97.5 F L Pulse Rate 101 H 101 H Respiratory Rate 22 H Blood Pressure 112/70 Pulse Oximetry 99 96 Oxygen Delivery High Flow Nasal Cannula Oxygen Flow Rate 4 10/16/25 01:11 10/16/25 02:00 10/16/25 04:00 Temperature Pulse Rate 101 H 100 Respiratory Rate 25 H Blood Pressure Pulse Oximetry 91 97 Oxygen Delivery BiPAP High Flow Nasal Cannula Oxygen Flow Rate 4 10/16/25 04:00 10/16/25 04:00 10/16/25 06:00 Temperature 97.8 F Pulse Rate 100 101 H 99 Respiratory Rate 18 Blood Pressure 106/46 L Pulse Oximetry 100 Oxygen Delivery Oxygen Flow Rate 10/16/25 08:00 10/16/25 08:00 10/16/25 08:00 Temperature 97.4 F L Pulse Rate 100 100 Respiratory Rate 28 H Blood Pressure 121/64 Pulse Oximetry 96 96 Oxygen Delivery High Flow Nasal Cannula Oxygen Flow Rate 4 10/16/25 08:21 10/16/25 10:00 Temperature Pulse Rate 100 99 Respiratory Rate Blood Pressure Pulse Oximetry Oxygen Delivery Oxygen Flow Rate Exam Const: General: comfortable and no acute distress Eyes: General: appearance normal, both eyes and all related structures Neck: Neck: full ROM, trachea midline, supple and no JVD Cardio: Rate: regular rate Heart sounds: Murmur heart sound present (aortic stenosis) Extrem: General: normal to inspection Psych: Affect: normal affect Results Labs 10/16/25 04:06 10/16/25 04:06 Labs: Abnormal lab results 10/15/25 10/15/25 10/15/25 Range/Units 12:15 18:12 23:13 RBC (4.6-6.20) M/mm3 Hgb (14.0-18.0) g/dL Hct (42.0-52.0) % MCV (80-100) fl MCH (26-34) pg MCHC (32-36) g/dl RDW (11.5-14.5) % Plt Count (150-375) k/mm3 MPV (7.4-10.4) fl PT (11.1-14.7) Seconds Sodium (137-145) mmol/L Chloride (98-107) mmol/L Carbon Dioxide (22-30) mmol/L Anion Gap (4-12) mmol/L BUN (9-20) mg/dL Creatinine (0.7-1.3) mg/dL Estimated GFR (59 - ) Glucose (65-110) mg/dL POC Capillary Glucose 148 H 176 H 173 H (65-105) mg/dl Phosphorus (2.5-4.5) mg/dL Magnesium (1.6-2.3) mg/dL 10/16/25 10/16/25 Range/Units 04:06 07:21 RBC 2.17 L (4.6-6.20) M/mm3 Hgb 7.5 L (14.0-18.0) g/dL Hct 25.4 L (42.0-52.0) % MCV 117.1 H (80-100) fl MCH 34.6 H (26-34) pg MCHC 29.5 L (32-36) g/dl RDW 17.0 H (11.5-14.5) % Plt Count 66 L (150-375) k/mm3 MPV 10.6 H (7.4-10.4) fl PT 19.7 H (11.1-14.7) Seconds Sodium 149 H (137-145) mmol/L Chloride 115 H (98-107) mmol/L Carbon Dioxide 20 L (22-30) mmol/L Anion Gap 14 H (4-12) mmol/L BUN 130 H* D (9-20) mg/dL Creatinine 6.30 H (0.7-1.3) mg/dL Estimated GFR 9 L (59 - ) Glucose 173 H (65-110) mg/dL POC Capillary Glucose (65-105) mg/dl Phosphorus 8.1 H (2.5-4.5) mg/dL Magnesium 2.8 H (1.6-2.3) mg/dL Diabetes panel 10/16/25 Range/Units 04:06 Sodium 149 H (137-145) mmol/L Potassium 4.8 (3.4-5.0) mmol/L Chloride 115 H (98-107) mmol/L Carbon Dioxide 20 L (22-30) mmol/L BUN 130 H* D (9-20) mg/dL Creatinine 6.30 H (0.7-1.3) mg/dL Glucose 173 H (65-110) mg/dL Calcium 9.7 (8.4-10.2) mg/dL Albumin 4.4 (3.5-5.1) g/dL Calcium panel 10/16/25 Range/Units 04:06 Calcium 9.7 (8.4-10.2) mg/dL Phosphorus 8.1 H (2.5-4.5) mg/dL Albumin 4.4 (3.5-5.1) g/dL Pituitary panel 10/16/25 Range/Units 04:06 Sodium 149 H (137-145) mmol/L Potassium 4.8 (3.4-5.0) mmol/L Chloride 115 H (98-107) mmol/L Carbon Dioxide 20 L (22-30) mmol/L BUN 130 H* D (9-20) mg/dL Creatinine 6.30 H (0.7-1.3) mg/dL Glucose 173 H (65-110) mg/dL Calcium 9.7 (8.4-10.2) mg/dL Adrenal panel 10/16/25 Range/Units 04:06 Sodium 149 H (137-145) mmol/L Potassium 4.8 (3.4-5.0) mmol/L Chloride 115 H (98-107) mmol/L Carbon Dioxide 20 L (22-30) mmol/L BUN 130 H* D (9-20) mg/dL Creatinine 6.30 H (0.7-1.3) mg/dL Glucose 173 H (65-110) mg/dL Calcium 9.7 (8.4-10.2) mg/dL Albumin 4.4 (3.5-5.1) g/dL All other labs normal.
--- NOTE | 2025-10-16 11:54 | PCNFU ---
Nutrition Follow-Up Complete: Suboptimal Energy Intake as related to mechanical ventilation as evidenced by NPO. - RESOLVED, pt extubated and moved out of the unit Goal:Meet estimated nutritional needs Pt not meeting goal. Pt current nutrition is NPO for dialysis catheter placement. Nutrition recommendation: Initiate nutrition as pt has been without nutrition x 4 days Last recorded weight is 163.5 kg. Bowel Motility: +BM 10/16 Labs Reviewed: Hgb:7.5, HCT:25.4, NA:149, GFR:9, BUN:130, Cre:6.3, Glu:173 Meds Noted: lacutlose, protonix, lantus Skin: WNL Additional Notes: Pt extubated over the weekend and moved out of the unit. Speech consulted for MBS for swallow but pt does not fit in the chair. Speech working with pt at bedside, recommended a pureed diet, level 2 liquids. stated pt ate 100% last night. NPO today for dialysis catheter placement. Recommend to resume diet per speech recommendations post procedure. Will monitor weight, labs, skin, diet orders, meds, follow up in 3 days.
--- NOTE | 2025-10-16 15:35 | P.TS_ITS ---
Transfer Discharge Sum: Prov Provider Date of admission: 10/04/25 09:48 Primary care physician: Flo Russell, Admitting clinician: Amrit Mejia MD Consults: 10/04/25 Consult to Physician Routine Comment: Consulting Provider: Pineda Duran Reason for consultation: Elevated troponins, thrombocytopenia Has provider been notified: Yes 10/04/25 09:49 Consult to Physician Routine Comment: Consulting Provider: Sonido Mcknight Reason for consultation: Hypoxic respiratory Has provider been notified: Yes 10/04/25 13:19 Consult to Physician Routine Comment: left message with Dr. Farfan Consulting Provider: Delfin Tracey call center operator/MD group to consult: GI Reason for consultation: GI bleed, blood from OG tube Has provider been notified: Yes 10/05/25 08:43 Consult to Physician Routine Comment: Office notified spoke with Priti Consulting Provider: Dereck Baez call center operator/MD group to consult: NEPHROLOGY Reason for consultation: MARIO, Rhabdomyolysis Has provider been notified: Yes 10/16/25 07:00 Consult to Physician Routine Comment: Called office and notified them of consult Consulting Provider: Gavin Buck Reason for consultation: tunneled HD catheter for hemodialysis Has provider been notified: Yes DS: Admitting Diagnosis Discharge Date 10/17/25 Admitting Diagnosis Fever DS: Discharge Diagnosis Discharge Diagnosis (1) Acute respiratory failure: Code(s): J96.00 - Acute respiratory failure, unspecified whether with hypoxia or hy percapnia Status: Acute Assessment and Plan: 10/04: Patient presented the ED via EMS with complains of generalized weakness, fevers, shortness of breath and fever. When EMS arrived to his house he was found on the ground, unable to get up off the floor. Patient's O2 sats were in the 80s on room air. Patient was placed on supplemental oxygen. In the ED patient was awake, alert, oriented was able to answer questions. O2 sats were improved but he was hypotensive, once he was given IV fluids per sepsis protocol he was more short of breath and was intubated -10/04: Intubated in the ER for impending respiratory failure likely related to CHF Vent management per ICU (2) Septic shock: Code(s): A41.9 - Sepsis, unspecified organism; R65.21 - Severe sepsis with septic shock Status: Acute Assessment and Plan: Patient with hypotension, likely related to pneumonia, possible lower abdomen cellulitis as seen on the CT scan. Could be related to heart failure -10/04: patient received 3.5 L IV fluid bolus in the ER, despite which his blood pressures remain low, is right-sided IJ central line was inserted, patient started on Levophed -upon arrival to the ICU patient was on Levophed 20 mcg/min with systolic blood pressures in the 80s, I advised the bedside RN to go up on the Levophed and ordered vasopressin -will maintain MAP > 65 mmHg or SBP > 100 mmHg -patient had does have a provided pulse pressure -will obtain troponin -will repeat echocardiogram echocardiogram -lactic acid was 5.9 on admission, repeat was 4.2 -will trend lactic acid -patient was given 1 dose of ceftriaxone and azithromycin in the ER -given history of alcoholism, cocaine abuse started on cefepime, vancomycin and azithromycin (10/04) -10/04: Blood cultures have been obtained -10/04: Urine cultures obtained and pain -10/04: sputum culture obtained and pending -10/04: Obtain urine Legionella and strep pneumo antigen, pending -chest x-ray shows Pulmonary vascular congestion, hold additional IV fluid -receiving albumin for intravascular volume expansion 10/05: Patient has multi-system organ failure, 01/16/2025: Echocardiogram Summary 1. Left ventricular chamber dimension is normal. 2. Left ventricular systolic function is normal, estimated at 65-70%. 3. There is mildly increased left ventricular wall thickness. 4. The left ventricular diastolic function is grade I diastolic dysfunction. 5. Right ventricular systolic function is normal. 6. Left atrial chamber dimension is moderately enlarged. 7. Right atrial chamber dimension is moderately enlarged. 8. There is moderate aortic valve calcification. 9. There is moderate to severe aortic valve stenosis with a peak velocity of 407 cm/s, mean gradient of 43 mmHg, and aortic valve area of 1.2 cm2. 10. There is mild aortic valve regurgitation. 11. There is mild to moderate tricuspid valve regurgitation. 12. Pulmonary hypertension, estimated pulmonary arterial systolic pressure is 48 mmHg. (3) MARIO (acute kidney injury): Code(s): N17.9 - Acute kidney failure, unspecified Status: Acute Assessment and Plan: Acute kidney injury, creatinine 1.83 on admission, (1.87-2.19 in January of 2025, prior to that patient's creatinine was 1.10-1.20 in March of 2023) -patient received 3.5 L of IV fluid bolus in the ER -will continue to monitor renal function, electrolytes and urine output -albumin for intravascular volume expansion, hold additional IV fluids due to pulmonary vascular congestion on chest x-ray -10/05: Worsening creatinine, decreased urine output, likely related to rhabdomyolysis, CK levels trending down, continue maintenance IV fluid -nephrology consult Renal ultrasound with no hydronephrosis Creatinine continues to incline. Nephrology following. Poor urine output On Lasix 80 mg IV b.i.d. (4) Acute CHF: Code(s): I50.9 - Heart failure, unspecified Status: Acute Assessment and Plan: Patient has history of CHF, he does take furosemide at home, echocardiogram as above -chest x-ray shows pulmonary vascular congestion after receiving IV fluid -repeat echo 10/05/2025: EF 55-60% abnormal diastolic function severe aortic stenosis [id number] aortic regurgitation mild MR [id number] TR moderate pulmonary hypertension (5) DM2 (diabetes mellitus, type 2): Code(s): E11.9 - Type 2 diabetes mellitus without complications Status: Chronic Assessment and Plan: Accu-Cheks and sliding scale insulin -patient does take Lantus at home, will restart if needed (6) Thrombocytopenia: Code(s): D69.6 - Thrombocytopenia, unspecified Status: Acute Assessment and Plan: Chronic thrombocytopenia could be related to cirrhosis, alcohol use -patient was evaluated by Oncology on 01/28/2023 -continue to monitor, -will transfuse as needed Ultrasound with splenomegaly and ascites noted (7) Cirrhosis: Code(s): K74.60 - Unspecified cirrhosis of liver Status: Acute Assessment and Plan: CT scan of the abdomen and pelvis showed spleen enlargement and cirrhosis -patient also has anasarca -elevated bilirubin ultrasound with splenomegaly and ascites noted (8) Anasarca: Code(s): R60.1 - Generalized edema Status: Acute Assessment and Plan: Likely related to cirrhosis (9) GI bleed: Code(s): K92.2 - Gastrointestinal hemorrhage, unspecified Status: Acute Assessment and Plan: OG tube has blood draining, could be related to trauma secondary to OG tube placement or variceal bleed or gastritis as patient has cirrhosis -Protonix IV q.12 hours -appreciate GI evaluation, no more GI bleeding noted from the OG tube -patient does have cirrhosis, MELD score of 26 (10) Anemia: Code(s): D64.9 - Anemia, unspecified Status: Acute Assessment and Plan: Patient also has anemia with hemoglobin of 10.7 (which is close to his baseline) -will continue to monitor, transfuse for hemoglobin < 7.0 (11) Aortic stenosis: Code(s): I35.0 - Nonrheumatic aortic (valve) stenosis Status: Acute Assessment and Plan: Moderate to severe aortic valve stenosis with mean gradient of 43 mmHg and aortic valve area of 1.2 cm2 -caution with IV fluids -repeat echocardiogram has been ordered (12) NSTEMI (non-ST elevated myocardial infarction): Code(s): I21.4 - Non-ST elevation (NSTEMI) myocardial infarction Status: Acute Assessment and Plan: 10/04: Troponins were 4.720, 8.720 and 13.00. -cardiology was consulted, recommended starting heparin infusion -10/05: Heparin infusion was discontinued as this was thought to be secondary to type 2 myocardial infarction secondary to anemia, hypotension, respiratory failure and septic shock. Plan patient with acute respiratory failure was intubated upon arrival patient with persistent a flutter with RVR, acute on chronic diastolic heart failure, most likely patient was volume overloaded and went to respiratory failure, patient was also treated for sepsis and shock due to pneumonia, patient was extubates and out of ICU, patient remains somnolent and not providing any history or ROS, his present. patient has difficulty swallowing, will have speech pathologist work with the patient, recommending MBS study. Today patient could not have MBS as patient is morbidly obese with BMI of 46.6 and he is too big for proceedure chair and patient could not have the proceedure, however the speech pathalogist will work the patient, will CPM and monitor DVT prophylaxis: SCDs, no chemoprophylaxis due to blood in OG tube likely related to GI bleeding and thrombocytopenia Stress ulcer prophylaxis: Protonix IV q.12 hours Nutrition: NPO for now Code Status: Full code Transfer Discharge Sum: Med Medications Active and Home Medications: Home Medications insulin glargine 100 unit/mL (3 mL) subcutaneous pen (Basaglar FelishaikPen U-100 Insulin) 28 unit subcut HS 01/25/23 [History Confirmed 10/04/25] Held on 10/04/25. Instructions: Patient no longer taking insulin regular human 100 unit/mL injection solution (Humulin R Regular U-100 Insulin) 15 unit subcut ACHS 01/25/23 [History Confirmed 10/04/25] ferrous sulfate 325 mg (65 mg iron) tablet 325 mg PO DAILY 01/15/25 [History Confirmed 10/04/25] furosemide 20 mg tablet 40 mg PO DAILY 01/15/25 [History Confirmed 10/04/25] potassium chloride 10 mEq tablet,extended release 20 meq PO DAILY 01/15/25 [History Confirmed 10/04/25] Held on 10/04/25. Instructions: Patient no longer taking carvedilol 3.125 mg tablet 3.125 mg PO Q12H 10/04/25 [History Confirmed 10/04/25] Active Medications Aspirin (Aspirin 81 Mg Chewable Tablet) 81 mg PO DAILY@0800 [facility] Last Admin: 10/16/25 08:32 Dose: Not Given Carvedilol (Carvedilol 3.125 Mg Tablet) 3.125 mg PO Q12H [facility] Last Admin: 10/16/25 08:21 Dose: 3.125 mg Dextrose (Dextrose 50% 25 Gm/50 Ml Syringe) 12.5 gm IV PUSH PRN PRN; Protocol PRN Reason: Hypoglycemia Ferrous Sulfate (Ferrous Sulfate 325 Mg Tablet) 325 mg PO DAILY [facility] Stop: 11/13/25 08:59 Last Admin: 10/16/25 08:20 Dose: 325 mg Glucagon (Glucagon For Inj 1 Mg Vial) 1 mg IM PRN PRN; Protocol PRN Reason: Hypoglycemia Glucose (Glucose Oral Gel 15 Gm Of Glucse In 37.5 Gm Tube) 15 gm PO PRN PRN; Protocol PRN Reason: Hypoglycemia Dextrose (Dextrose 5% 1,000 Ml) 1,000 mls @ 100 mls/hr IVPB PRN PRN; Protocol PRN Reason: Hypoglycemia Insulin Aspart (Insulin Aspart (*Bkc) 100 Units/Ml) 2 - 5 units SUB-Q Q6HR [facility]; Protocol Last Admin: 10/16/25 12:52 Dose: Not Given Insulin Glargine (Insulin Glargine (*Bkc) 100 Units/Ml) 28 units SUB-Q HS VIAK On Hold: 10/14/25 21:00 Ipratropium [place] (Ipratropium Br 0.02% Inh Soln 0.5 Mg/2.5 Ml Vial) 0.5 mg INHALATION Q6HRT PRN PRN Reason: Wheezing Last Admin: 10/12/25 20:10 Dose: 0.5 mg Lactulose (Lactulose 20 Gm/30 Ml Udc) 20 gm PO QAM [facility] Last Admin: 10/16/25 08:20 Dose: 20 gm Levalbuterol HCl (Levalbuterol Neb 1.25 Mg/3 Ml) 0.63 mg INHALATION Q6HRT PRN PRN Reason: Wheezing Last Admin: 10/13/25 07:41 Dose: 0.63 mg Ondansetron HCl (Ondansetron Inj 4 Mg/2 Ml Vial) 4 mg IV PUSH Q4H PRN PRN Reason: Nausea And Vomiting Pantoprazole Sodium (Pantoprazole Sodium Iv 40 Mg Vial) 40 mg IV PUSH Q12HR [facility] Last Admin: 10/16/25 08:20 Dose: 40 mg Potassium Chloride (Potassium Chloride 20 Meq Er Tablet) 20 meq PO DAILY [facility] Last Admin: 10/16/25 08:22 Dose: Not Given Thiamine HCl (Thiamine Hcl 200 Mg/2 Ml Vial) 100 mg IV PUSH QAM [facility] Last Admin: 10/16/25 08:20 Dose: 100 mg Transfer Discharge Sum: Hosp Hospital Course Hospital course: Blake Smith is a 65 year old male patient with acute respiratory failure was intubated upon arrival patient with persistent a flutter with RVR, acute on chronic diastolic heart failure, most likely patient was volume overloaded and went to respiratory failure, patient was also treated for sepsis and shock due to pneumonia, patient was extubates and out of ICU, patient remains somnolent and not providing any history or ROS, his present. patient has difficulty swallowing, will have speech pathologist work with the patient, recommending MBS study. Today patient could not have MBS as patient is morbidly obese with BMI of 46.6 and he is too big for procedure chair and patient could not have the proceedure, however the speech pathalogist will work the patient, will CPM and monitor. patient needs a dialysis catheter and surgery service is unable to place the catheter as patient is too large for the surgery chair, discuss with [facility] and the have accepted the patient, will discharge the patient. Patient Condition: Stable Time Spent with Patient Time attestation: Total time spent providing and/or coordinating transfer services: Exam Narrative: Morbidly obese Patient is comfortable, NAD HEENT: eyes are clear and none icteric LUNGS:CTA HEART: RR S1S2 ABD: Morbidly obese distended Lower extremities: no edema SKIN: nonjaundiced Neuro: grossly intact. DS: Data Data Completed and Pending Labs on day of discharge: Labs from last 24 hours 10/16/25 10/16/25 10/16/25 12:40 07:21 04:06 WBC 8.3 RBC 2.17 L Hgb 7.5 L Hct 25.4 L MCV 117.1 H MCH 34.6 H MCHC 29.5 L RDW 17.0 H Plt Count 66 L MPV 10.6 H % Immature Plt Fraction 2.6 PT 19.7 H INR 1.7 Sodium 149 H Potassium 4.8 Chloride 115 H Carbon Dioxide 20 L Anion Gap 14 H BUN 130 H* D Creatinine 6.30 H Estim Creat Clear Calc 18 Estimated GFR 9 L Glucose 173 H POC Capillary Glucose 161 H Calcium 9.7 Phosphorus 8.1 H Magnesium 2.8 H Albumin 4.4 10/15/25 10/15/25 23:13 18:12 WBC RBC Hgb Hct MCV MCH MCHC RDW Plt Count MPV % Immature Plt Fraction PT INR Sodium Potassium Chloride Carbon Dioxide Anion Gap BUN Creatinine Estim Creat Clear Calc Estimated GFR Glucose POC Capillary Glucose 173 H 176 H Calcium Phosphorus Magnesium Albumin Preliminary micro results at discharge 10/11/25 09:02 Blood Culture - Preliminary Blood 10/11/25 08:48 Blood Culture - Preliminary Blood
--- NOTE | 2025-10-16 23:59 | PC.NURSE ---
Pt transfered via [facility] on 4L high flow nasal cannula and carrasquillo intact, all belongings sent with the patient and telemetry was removed. present at time of transfer.
== END 2025-10-17 | disposition short-term general hospital (02) | DRG 870 ==
LOC: ANHED 07:37 → ANHICU 10:35 → ANHIMU 10-13 14:09
PROVIDERS: Emergency Medicine; Internal Medicine; Internal Medicine Nephrology; Admitting Provider Internal Medicine; Emergency Provider Student in an Organized Health Care Education/Training Program; PCP Family Medicine; Visit Provider Family Medicine
DX: A41.9 Sepsis, unspecified organism (principal); R65.21 Severe sepsis with septic shock; I21.A1 Myocardial infarction type 2; I50.33 Acute on chronic diastolic (congestive) heart failure; J96.01 Acute respiratory failure with hypoxia; K72.00 Acute and subacute hepatic failure without coma; J15.1 Pneumonia due to Pseudomonas; N17.9 Acute kidney failure, unspecified; I13.0 Hypertensive heart and chronic kidney disease with heart failure and stage 1 through stage 4 chronic kidney disease, or unspecified chronic kidney disease; M62.82 Rhabdomyolysis; Z68.42 Body mass index [BMI] 45.0-49.9, adult; I35.0 Nonrheumatic aortic (valve) stenosis; E11.9 Type 2 diabetes mellitus without complications; Z20.822 Contact with and (suspected) exposure to COVID-19; N40.0 Benign prostatic hyperplasia without lower urinary tract symptoms; E11.22 Type 2 diabetes mellitus with diabetic chronic kidney disease; N18.32 Chronic kidney disease, stage 3b; D69.59 Other secondary thrombocytopenia; E11.42 Type 2 diabetes mellitus with diabetic polyneuropathy; E86.0 Dehydration; K52.9 Noninfective gastroenteritis and colitis, unspecified; F14.10 Cocaine abuse, uncomplicated; F12.10 Cannabis abuse, uncomplicated; K70.30 Alcoholic cirrhosis of liver without ascites; Y90.1 Blood alcohol level of 20-39 mg/100 ml; D64.9 Anemia, unspecified; I36.1 Nonrheumatic tricuspid (valve) insufficiency; I27.20 Pulmonary hypertension, unspecified; K72.10 Chronic hepatic failure without coma; I48.0 Paroxysmal atrial fibrillation; E66.01 Morbid (severe) obesity due to excess calories; Z79.4 Long term (current) use of insulin; I35.2 Nonrheumatic aortic (valve) stenosis with insufficiency; F10.20 Alcohol dependence, uncomplicated; Z87.891 Personal history of nicotine dependence
CPT/HCPCS: 36415; 36555; 36600; 70450; 71045; 71260; 74177; 76770; 80053; 80069; 80202; 80307; 81001; 82077; 82140; 82375; 82550; 82570; 82805; 82948; 83036; 83050; 83605; 83735; 83880; 84100; 84145; 84156; 84300; 84443; 84484; 84540; 85014; 85018; 85025; 85027; 85055; 85610; 85730; 85999; 86140; 86704; 86706; 86803; 87040; 87070; 87086; 87186; 87205; 87340; 87449; 87637; 87641; 87899; 92610; 93005; 93306; 94002; 94003; 94640; 96365; 96367; 96375; 97110; 97161; 97165; 97530; 97535; 99291; A9270; C1751; J0456; J0616; J0692; J0696; J1171; J1644; J1815; J1836; J1938; J1939; J2250; J2371; J2470; J3010; J3373; J3411; J3430; J3475; J7050; J7120; J7639; P9045; P9047; Q9967